=== PATIENT | male | born 1975 | race Caucasian/White ===

== ENCOUNTER → 2022-05-02 | Outpatient (CLI) | payer MEDICAID, SELFPAY ==
--- NOTE | 2022-05-02 15:13 | RAD_ITS ---
STUDY: X-RAY - LUMBOSACRAL SPINE REASON FOR EXAM: Male, 46 years old. Pain. TECHNIQUE: 6 view(s) of the lumbosacral spine, including lateral flexion and extension views, were obtained. COMPARISON: None FINDINGS: Normal lumbar lordosis. Mild levoscoliosis of the lower lumbar spine. Normal alignment of the vertebral bodies. Limited flexion and extension with no abnormal motion. Diffuse moderate facet sclerosis. Intervertebral disc space narrowing at T11-T12, T12-L1, L1-L2, L2-L3, L3-L4 and L4-5. Osteophytes most marked at T11-T12, T12-L1, L1-L2 and L4-5. Normal bilateral sacral ala, sacroiliac joints, and visualized sacrum. Vascular calcification. RAD/L/S Spine w Bend Min 6 Vw IMPRESSION: Limited flexion and extension with no abnormal motion. Diffuse lumbosacral spondylosis most marked in the lower thoracic and lower lumbar region.s. No acute abnormality or erosive changes. Electronically Signed: David Forbes, at 13:12 EST ,
--- NOTE | 2022-05-02 15:13 | RAD_ITS ---
STUDY: X-RAY - PELVIS AND BILATERAL HIPS REASON FOR EXAM: Male, 46 years old. Pain. TECHNIQUE: AP view of the pelvis.? 2 views of the right hip, and 2 views of the left hip were obtained. COMPARISON: None. FINDINGS: There is a non-specific bowel gas pattern. Normal visualized soft tissue structures. Osteopenia. Mild arthrosis of both sacroiliac joints. Normal bilateral superior and inferior pubic rami. Mild arthrosis of the symphysis pubis. Normal bilateral ischial tuberosities. Moderate arthrosis of both hips. 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 RAD/Hips B/L min 2 views w/ Pelvis IMPRESSION: Osteopenia with arthrosis and sacroiliac joints and symphysis pubis. Moderate arthrosis of both hips. 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 Electronically Signed: David Forbes, at 13:08 EST ,
[2022-05-02 18:02] LABS: Vitamin B12 483 pg/mL (211-911)
[2022-05-02 18:11] LABS: ALB/GLOB Ratio 0.8 RATIO (0.9-2.4); AST(SGOT) 33 U/L (15-37); Alanine Aminotransfer ALT/SGPT 50 U/L (16-61); Albumin, Serum 3.5 g/dL (3.2-5.0); Alkaline Phosphatase 88 U/L (45-117); Anion Gap 11 (5-15); BUN 17 mg/dL (7-18); BUN/Creat Ratio 15.2 RATIO (10-20); Chloride 97 mmol/L (98-107); Cholesterol 181 mg/dL (200); Creatinine, Serum 1.12 mg/dL (0.70-1.30); EST Glomerular Filtration Rate 75 mL/min (>60); Est Glom Filt Rate - Afr Amer 90 mL/min (>60); Globulin 4.5 g/dL (2.2-4.2); Glucose 352 mg/dL (74-106); High Density Lipoprotein 30 mg/dL; Potassium 3.9 mmol/L (3.5-5.1); Sodium Level 132 mmol/L (136-145); Thyroid Stim Hormone (TSH) 4.29 uIU/mL (0.358-3.74); Triglycerides 280 mg/dL; Very Low Density Lipoprotein 56 mg/dL (5-40)
[2022-05-03 11:23] LABS: T4 Free Direct 1.08 ng/dL (0.76-1.46)
== END | disposition home or self-care (01) ==
PROVIDERS: PCP Family Medicine; Referring Provider Family Medicine; Visit Provider Family Medicine
DX: M51.36 Other intervertebral disc degeneration, lumbar region (principal); E11.9 Type 2 diabetes mellitus without complications
CPT/HCPCS: 36415; 72114; 73521; 80053; 80061; 82607; 84403; 84439; 84443

== ENCOUNTER 2022-06-24 11:30 | Outpatient (RCR) | payer MEDICAID, SELFPAY ==
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
--- NOTE | 2022-06-24 12:00 | HP.PTREVAL ---
Dr. Jose Fong MD, It has been my pleasure to treat SUKHWINDER MEYER over the last 6 visits for DDD Lumbar Spin. Please see the progress note below for an update on the physical therapy plan of care! Subjective: Patient reports that he does feel that the aqua therapy helped but the pain is still bad. Worst: 09/23 Agg: sitting or standing for too long. Eases: Meloxicam Best: 07/24. Called Dr. Fong and is trying to change medications. He does feel that more therapy would be good- he just got a membership- and plans to work out indep as well. Objective/Function: Posture: FH, RS- can correct but does not maintain in sitting or standing. Gait: slightly antalgic- straight cane- HR/TR: able with UE A. SLS: Left: 2-3 seconds Right: unable reports that he feels the he will buckle. ROM: Lumbar: flexion: hands to knees, Extn: neutral, SB and Rot: moderate limitations with pain, Hip: flexion: 90 degrees, Abd: 20 degrees, Add: neutral, IR/ER: 15 degrees with pain in all directions of lumbar and hip. Knee/Ankle: WFL (pt does have moderate OA in bilateral hips). Strength: Core: fair, Hip: 4/5 in available range, Knee: 5/5, Ankle: 5/5. Sensation: WNL to gross touch bilateral LE. Reflex: 2+ patellar Plan Plan: 06/24/22: Continue 2x a week for 4 weeks with aquatics- continue to progress towards goals. Continue with UE/CORE. Add steps. Aquatics- focus on LE and core strength/stabilization- functional mobility with pain mgmt Balance/Gait/Functional tests - Balance/Special Test Scores Oswestry Low Back Score: 34 Goals Goal 1:: Patient will be I with HEP and progression Goal Time Frame: 4-6 Weeks Goal Progress: Progressing Goal 2:: Patient will ambulate >300 feet with no AD Goal Time Frame: 4-6 Weeks Goal Progress: Progressing Goal 3:: Patient will maintain proper posture t/o tx session to demo increased core s/s Goal Time Frame: 4-6 Weeks Goal Progress: Progressing Goal 4:: Patient will report 80% improvement Goal Time Frame: 4-6 Weeks Goal Progress: Progressing Anticipated Interventions Patient/Client Instruction: Educate patient on: Benefits of Fitness Program Therapeutic Exercise to Include: Strength training, Endurance training, Balance training, Coordination, Agility training, Body mechanics, Postural training, Flexibilty training, Gait and locomotor training, Neuromotor development, In an aquatic setting, Passive ROM, Active ROM, Dynamic Lumbar Stabilization, Scapular Strength/Stabilization For the Purpose of:: To improve muscle performance and motor function Please do not hesitate to contact me at [phone] by phone or if you have questions or concerns regarding this new plan of care! Sincerely, LIUDMILA DeviT
--- NOTE | 2022-09-30 11:43 | HP.PT.NRP ---
Patient Information Patient Information: SUKHWINDER MEYER was seen in my office for initial evaluation on 05/15/22. The following Plan of Care was established for this patient: POC Established Initial Frequency: 2x /Week Initial Duration: 4 Weeks Anticipated Interventions Patient/Client Instruction: Educate patient on: Benefits of Fitness Program Therapeutic Exercise to Include: Strength training, Endurance training, Balance training, Coordination, Agility training, Body mechanics, Postural training, Flexibilty training, Gait and locomotor training, Neuromotor development, In an aquatic setting, Passive ROM, Active ROM, Dynamic Lumbar Stabilization and Scapular Strength/Stabilization For the Purpose of:: To improve muscle performance and motor function Last Seen Last Seen: This patient was last seen in our office . Pertinent comments regarding their Physical therapy will appear below: Pt POC at last re-evaluation was to continue aquatic therapy- he was doing a home exercise program- he has not attended PT in over 8 weeks- PT feels its appropriate to d/c from PT and continue his current HEP. At this point I will be discontinuing this patient from physical therapy. I would be happy to see this patient again in the future if found appropriate by the physician. Thank you! Dary Mayers, DPT Balance/Gait/Functional tests Balance/Special Test Scores Oswestry Low Back Score: 34
== END 2022-06-24 19:00 | disposition home or self-care (01) ==
LOC: PT 11:30
PROVIDERS: PCP Family Medicine; Referring Provider Family Medicine; Visit Provider Family Medicine
DX: M51.36 Other intervertebral disc degeneration, lumbar region (principal)
CPT/HCPCS: 97113; 97162; 97164

== ENCOUNTER 2023-11-10 14:37 | Inpatient (IN) | payer MEDICAID, SELFPAY ==
[2023-11-10 14:39] VITALS: BP 130/84; PULSE 83; RESP 18; TEMP 35.6; O2SAT 99
--- NOTE | 2023-11-10 16:25 | EX.ED.SAOD ---
HPI History of Present Illness Chief Complaint: Substance Abuse Informant: patient Onset/Context/Timing Onset: Today Context: Gradual Onset Timing: Continuous Worsened by: PTSD, depression, and anxiety Relieved by: Nothing Associated Symptoms Associated Symptoms: Negative for vomiting*, diarrhea*, fever*, rash*, seizure, tremor, palpatations, suicidal ideation or homicidal ideation Narrative Narrative: Patient presents requesting detox from alcohol. Patient states he drinks every day. Patient states the amount he drinks varies from day-to-day. Patient states he drinks whenever I can get my hands on. Patient states he has a history of PTSD, depression, and anxiety which exacerbate his drinking. Patient denies any nausea or vomiting. Patient denies any seizures or tremors. Patient denies any suicidal homicidal ideations currently. Patient admits to chronic neck and back pain. Patient denies any other symptoms. Patient has never been to detox before. [facility] Medical History (Updated 11/10/23 @ 17:[address] Jos Garrison, DO) Degeneration of spine PTSD (post-traumatic stress disorder) Alcohol abuse Anxiety Depression Diabetes SOB (shortness of breath) HTN (hypertension) Home Medications ?Medication ?Instructions ?Recorded ?Last Taken ?Type albuterol sulfate 90 mcg/actuation 1 puff inhalation Q4H PRN PRN 11/10/23 Unknown History aerosol inhaler wheezing apixaban 5 mg tablet (Eliquis) 5 mg PO BID 11/10/23 Unknown History atorvastatin 10 mg tablet 10 mg PO DAILY 11/10/23 Unknown History carvedilol 25 mg tablet 12.5 mg PO BID 11/10/23 Unknown History cetirizine 10 mg tablet 10 mg PO DAILY 11/10/23 Unknown History fluoxetine 60 mg tablet 60 mg PO DAILY 11/10/23 Unknown History glipizide 2.5 mg tablet, extended 2.5 mg PO DAILY 11/10/23 Unknown History release 24 hr lisinopril 10 1 tab PO DAILY 11/10/23 Unknown History mg-hydrochlorothiazide 12.5 mg tablet meloxicam 15 mg tablet 15 mg PO DAILY 11/10/23 Unknown History metformin 1,000 mg tablet 1,000 mg PO BID 11/10/23 Unknown History Allergy/AdvReac Type Severity Reaction Status Date / Time No Known Allergies Allergy Verified 11/10/23 14:39 Surgical History (Updated 11/10/23 @ 16:[address] Jos Garrison, DO) History of carpal tunnel surgery Social History household members: spouse housing: house Smoking Status: Current every day smoker tobacco type: cigarettes alcohol intake: never ROS ROS ED Constitutional Constitutional ED: Denies chills or fever(s) Eyes Eyes: Denies blurry vision or change in vision ENT ENT ED: Denies rhinorrhea or sore throat Cardiovascular Cardiovascular: Denies chest pain or palpitations Respiratory/Chest Respiratory/Chest: Denies cough or dyspnea Gastrointestinal Gastrointestinal: Denies nausea or vomiting Genitourinary Genitourinary ED: Denies dysuria or hematuria Musculoskeletal Musculoskeletal: Reports back pain and neck pain Integumentary Denies abscess or rash Neurologic Neurologic: Denies headache(s) or weakness Allergic/Immunologic Allergic/Immunologic ED: Denies mouth swelling or urticaria EXAM Physical Exam Const Vital Signs: 11/10/23 14:39 11/10/23 16:38 Temperature 96.1 F L Temperature Source Temporal Pulse Rate 83 78 Respiratory Rate 18 19 H Blood Pressure 130/84 H 116/49 L Blood Pressure Mean 99 71 Pulse Ox 99 99 Oxygen Delivery Method Room Air Room Air Positive well nourished and well developed General Appearance ED: well developed and NAD HEENT Reports moist mucous membranes Neck supple and no JVD Resp normal respiratory effort and clear to auscultation bilaterally Cardio regular rate and regular rhythm GI soft to palpation, non-tender and non-distended Neuro oriented x3, CN's II-XII intact bilaterally and no sensory deficits noted Jose Coma Scale: document GCS findings Spontaneous Obeys Commands Oriented 15 Sensorium / Orientation: alert Speech: speech normal Motor Exam: strength 5/5 throughout Psych mental status grossly normal and thought process normal MDM MDM MDM Narrative Medical decision making narrative: Medical screening labs will be obtained. CBC will be obtained to assess for leukocytosis and anemia. Basic metabolic profile will be obtained to assess for electrolyte abnormality and renal function. Serum alcohol level will be obtained to assess for alcohol intoxication. Urine tox screen will be obtained to assess for substance abuse. Lab Data Labs: Laboratory Results - last 24 hr 11/10/23 15:56 WBC 11.6 H RBC 4.43 L Hgb 14.8 Hct 41.7 MCV 94.1 H MCH 33.4 H MCHC 35.5 RDW Std Deviation 43.8 RDW Coeff of Rachel 12.7 Plt Count 345 MPV 8.8 Immature Gran % (Auto) 0.900 Neut % (Auto) 60.5 Lymph % (Auto) 28.2 [place] % (Auto) 7.3 Eos % (Auto) 2.2 Baso % (Auto) 0.9 Absolute Neuts (auto) 7.0 Absolute Lymphs (auto) 3.27 Nucleated RBC % 0 Sodium 127 L Potassium 3.7 Chloride 95 L Carbon Dioxide 19.0 L Anion Gap 13 BUN 13 Creatinine 0.82 Est GFR (MDRD) Af Amer 128 Est GFR (MDRD) Non-Af 105 BUN/Creatinine Ratio 15.8 Glucose 73 L Calcium 8.9 Ethyl Alcohol 183.0 Management Discussion w/another healthcare provider: Hospitalist Treatment and Re-Evaluation Narrative: Smoking cessation was discussed. IV line was established. Case was discussed with the hospitalist. She will admit the patient to her service. Patient understood and was agreeable with the plan. All questions were answered. Discharge Plan Dx/Rx/DC Orders Clinical Impression: Alcohol abuse, Tobacco use, Hypertension, Desire for detoxification Disposition Disposition: Acute Care [facility]
[2023-11-10 16:38] VITALS: BP 116/49; PULSE 78; RESP 19; O2SAT 99
[2023-11-10 17:33] LABS: Absolute Lymphocyte Count 3.27 X10^3/uL (0.83-4.51); Basophil% 0.9 % (0-1); Eosinophil# 0.26 X10^3/uL; Eosinophils% 2.2 % (0-5); Hematocrit 41.7 % (40-54); Hemoglobin 14.8 g/dL (13.0-16.5); Lymphocyte # 3.27 X10^3/ul (0.83-4.51); Lymphocyte % 28.2 % (19-41); Mean Corp Hgb Conc 35.5 g/dL (32-36); Mean Corpuscular Hgb 33.4 pg (27.0-32.0); Mean Corpuscular Volume 94.1 fL (80-94); Mean Platelet Vol. 8.8 fl (6.2-12.0); Monocyte# 0.85 X10^3/uL; Monocyte% 7.3 % (0-10); NRBC Flagged by Analyzer 0 % (0-5); Neutrophil # 7.02 X10^3/uL (2.7-7.7); Neutrophil % 60.5 % (47-70); Platelet Count 345 K/mm3 (150-450); RBC Distribution Width CV 12.7 % (11.6-14.6); RBC Distribution Width SD 43.8 fl (35.1-43.9); Red Blood Count 4.43 M/mm3 (4.6-6.2); White Blood Count 11.6 K/mm3 (4.4-11.0)
[2023-11-10 17:34] LABS: Anion Gap 13 (5-15); BUN 13 mg/dL (7-18); BUN/Creat Ratio 15.8 RATIO (10-20); Calcium,Total 8.9 mg/dL (8.5-10.1); Chloride 95 mmol/L (98-107); Creatinine, Serum 0.82 mg/dL (0.70-1.30); EST Glomerular Filtration Rate 105 mL/min (>60); Est Glom Filt Rate - Afr Amer 128 mL/min (>60); Glucose 73 mg/dL (74-106); Potassium 3.7 mmol/L (3.5-5.1); Sodium Level 127 mmol/L (136-145)
[2023-11-10 18:00] VITALS: BP 168/44; PULSE 81; RESP 19; O2SAT 99
--- NOTE | 2023-11-10 18:13 | HP.PCM.HOS_ITS ---
HPI - General General Date of Admission: 11/10/23 Date of Service: 11/10/23 Chief Complaint: ETOH detox HPI Narrative SUKHWINDER MEYER, is a 48 M with a history of tobacco use, hypertension, diabetes, tobacco use, degenerative disc disease, depression and anxiety and alcohol use who presented to [facility] ED 11/10/2023 at the urging of his counselor for alcohol detox. Used to drink occasionally but has been drinking roughly daily since March and will drink as much as he can get and is much as he can afford which can be anywhere from a couple beers to 6-12 beers based on conversation, last drink 2 hours prior to arrival and he had sixpack this morning. He reports he has been homeless for the past 5 days after breaking up with his girlfriend and he called his counselor who recommended he come in for alcohol detox and further help. Patient said he thinks he borders on unhealthy alcohol use more so than alcohol dependence but acknowledges he does need help. No previous detox and presently reports chronic pain and some swelling in his legs from dangling them/sitting up for the past 5 days due to homelessness but no other new or acute complaints, no shakiness, no nausea or vomiting. Reports primarily feeling anxious and depressed. [facility] Medical History (Updated 11/10/23 @ 19:01 by Angely Moore) Alcohol abuse Anxiety Degeneration of spine Depression Depression Diabetes HTN (hypertension) PTSD (post-traumatic stress disorder) Restless legs Smoker SOB (shortness of breath) Home Medications ?Medication ?Instructions ?Recorded ?Last Taken ?Type albuterol sulfate 90 mcg/actuation 1 puff inhalation Q4H PRN PRN 11/10/23 Unknown History aerosol inhaler wheezing apixaban 5 mg tablet (Eliquis) 5 mg PO BID 11/10/23 Unknown History atorvastatin 10 mg tablet 10 mg PO DAILY 11/10/23 Unknown History carvedilol 25 mg tablet 12.5 mg PO BID 11/10/23 Unknown History cetirizine 10 mg tablet 10 mg PO DAILY 11/10/23 Unknown History fluoxetine 60 mg tablet 60 mg PO DAILY 11/10/23 Unknown History glipizide 2.5 mg tablet, extended 2.5 mg PO DAILY 11/10/23 Unknown History release 24 hr lisinopril 10 1 tab PO DAILY 11/10/23 Unknown History mg-hydrochlorothiazide 12.5 mg tablet meloxicam 15 mg tablet 15 mg PO DAILY 11/10/23 Unknown History metformin 1,000 mg tablet 1,000 mg PO BID 11/10/23 Unknown History Allergy/AdvReac Type Severity Reaction Status Date / Time No Known Allergies Allergy Verified 11/10/23 14:39 Surgical History (Updated 11/10/23 @ 16:[address] Jos Garrison DO) History of carpal tunnel surgery Social History household members: spouse housing: house Smoking Status: Current every day smoker tobacco type: cigarettes alcohol intake: never ROS ROS Narrative General: Denies fever/chills HENT: Denies headache, denies stuffy nose, denies sore throat EYES: Denies changes in vision Resp: Denies cough, denies shortness of breath Cardiac: Denies chest pain GI: Denies abdominal pain, denies changes in bowel, denies nausea/vomiting : Denies changes in urination Extremity: Has some bilateral lower extremity swelling MSK: Has chronic back problems/back pain Neuro: Denies any numbness/tingling Heme: Denies any bleeding or bruising Skin: Denies rashes Psychiatric: Feels anxious and depressed Vital Signs Vital Signs Vital Signs: 11/10/23 14:39 11/10/23 16:38 Temperature 96.1 F L Temperature Source Temporal Pulse Rate 83 78 Respiratory Rate 18 19 H Blood Pressure 130/84 H 116/49 L Blood Pressure Mean 99 71 Pulse Ox 99 99 Oxygen Delivery Method Room Air Room Air Physical Exam Narrative General: Alert, oriented, no apparent distress HEENT: Atraumatic, normocephalic Eyes: Anicteric, normal conjunctiva, extraocular movements grossly intact Neck: Supple Respiratory: Normal respiratory effort, diffuse wheezing Cardiovascular: Regular rate GI: Soft, nontender, nondistended Extremities: 1+ bilateral lower extremity edema and prominent veins Musculoskeletal: Moving all extremities Neuro: No overt focal neurological deficits Skin: No rashes appreciated Psych: Cooperative Results Lab / Micro Data 11/10/23 15:56 11/10/23 15:56 Labs: Laboratory Results - last 24 hr 11/10/23 15:56: WBC 11.6 H, RBC 4.43 L, Hgb 14.8, Hct 41.7, MCV 94.1 H, MCH 33.4 H, MCHC 35.5, RDW Std Deviation 43.8, RDW Coeff of Rachel 12.7, Plt Count 345, MPV 8.8, Immature Gran % (Auto) 0.900, Neut % (Auto) 60.5, Lymph % (Auto) 28.2, [place] % (Auto) 7.3, Eos % (Auto) 2.2, Baso % (Auto) 0.9, Absolute Neuts (auto) 7.0, Absolute Lymphs (auto) 3.27, Nucleated RBC % 0, Sodium 127 L, Potassium 3.7, C hloride 95 L, Carbon Dioxide 19.0 L, Anion Gap 13, BUN 13, Creatinine 0.82, Est GFR (MDRD) Af Amer 128, Est GFR (MDRD) Non-Af 105, BUN/Creatinine Ratio 15.8, G lucose 73 L, Calcium 8.9, Ethyl Alcohol 183.0 11/10/23 17:40: Ur Drug Screen Comment Assessment & Plan Assessment/Plan (1) Alcohol abuse: PLAN: Plan #Alcohol use disorder - We will begin CIWA every 4 for 24 hours, then every 6 for 24 hours, then every 12 until discharge -Had initially planned on phenobarb taper however this has an interaction with Jolene and patient felt he more had a problem with alcohol abuse than dependence and does not necessarily feel any significant symptoms when he does not drink and has days where he will drink only 1 or 2 beers so will use as needed Ativan and can schedule medication if frequent scoring -Gabapentin 300 mg every 8 as needed -Will start Bentyl and hydroxyzine as needed as well as loperamide as needed -Trazodone 100 mg p.o. nightly as needed sleep -Begin thiamine and folic acid supplementation -Zofran as needed for nausea -Case management consult to assist with discharge planning -EtOH 183, drug screen pending # Hyponatremia -Sodium 127, only other value in system was back in 2022 and was 132 -Hold hydrochlorothiazide, if no improvement may need to consider switching fluoxetine to alternative medication or further workup -Does not seem to be symptomatic at this time # Depression and anxiety -Continue fluoxetine -Support medications as above -Supportive care provided in ED #Hypertension -Continue carvedilol -Given hyponatremia holding lisinopril/hydrochlorothiazide, if blood pressure remains elevated despite being treated for alcohol withdrawal can resume the lisinopril -As needed hydralazine in the meantime #Type 2 diabetes mellitus -Glucose checks and sliding scale insulin -Hold oral hypoglycemic at this time -In ED glucose only 72, patient has not eaten much however given he is presently homeless # Chronic low back pain -Tylenol as needed -May ultimately benefit from physical therapy possibly on outpatient basis -Holding meloxicam given patient's also on Eliquis, may need to alter regimen depending on patient's symptoms # Chronically on Eliquis -Will need to clarify reason for patient's Eliquis but does actively feel this # Homelessness -Case management c/s #DVT ppx: On Eliquis Wandy Pittman MD Charges/Coding Visit Charges Inpatient E&M: 42504 Init Hosp L2
[2023-11-10 18:31] VITALS: BP 168/44; PULSE 81; RESP 19; TEMP 36.3; O2SAT 99
[2023-11-10 18:56] VITALS: BMI 41.3
[2023-11-10 19:03] VITALS: BP 131/69; PULSE 83; RESP 16; TEMP 36.4; O2SAT 98
[2023-11-10] MEDS: 0.9% Normal Saline (1000mL) 1,000 ML 75 ML IV (19:47)
[2023-11-10] MEDS: APIXABAN 5 MG TABLET PO (19:49)
[2023-11-10] MEDS: Carvedilol 12.5 MG Tablet PO (19:49)
[2023-11-10] MEDS: Gabapentin 300 MG Capsule PO (20:05)
[2023-11-10] MEDS: LORazepam 1 MG Tablet PO (20:05)
[2023-11-10] MEDS: Acetaminophen 325 MG Tablet 650 MG PO (20:05)
[2023-11-10] MEDS: hydrOXYzine PAM 25 MG Capsule 50 MG PO (20:05)
[2023-11-10 20:08] LABS: Amphetamine Urine VISTA NEGATIVE (<1000 ng/mL); Barbiturate Urine VISTA NEGATIVE (< 200 ng/mL); Benzodiazepine Urine VISTA NEGATIVE (< 200 ng/mL); Cocaine Urine VISTA NEGATIVE (< 300 ng/mL); Ecstacy Urine VISTA NEGATIVE (< 500 ng/mL); Methadone Urine VISTA NEGATIVE (< 300 ng/mL); PCP Urine VISTA NEGATIVE (< 25 ng/mL); THC Urine VISTA NEGATIVE (< 50 ng/mL); Vista UDS pH Range 4
[2023-11-10 20:28] LABS: Bedside Glucose 94 mg/dL (74-106)
[2023-11-11] VITALS (8 sets, daily range): BP systolic 136–164; BP diastolic 67–101; PULSE 62–88; RESP 14–18; TEMP 17.7–36.9; O2SAT 92–99
[2023-11-11] MEDS: traZODone 100 MG Tablet PO ×2 (00:26→21:58)
[2023-11-11] MEDS: LORazepam 1 MG Tablet PO (00:27)
[2023-11-11 07:03] LABS: Bedside Glucose 131 mg/dL (74-106)
[2023-11-11 07:32] LABS: Absolute Lymphocyte Count 1.85 X10^3/uL (0.83-4.51); Absolute Neutrophil Count 5.1 X10^3/uL (2.0-7.7); Basophil# 0.05 X10^3/uL; Basophil% 0.6 % (0-1); Eosinophil# 0.21 X10^3/uL; Eosinophils% 2.6 % (0-5); Hematocrit 40.8 % (40-54); Hemoglobin 14.4 g/dL (13.0-16.5); Lymphocyte # 1.85 X10^3/ul (0.83-4.51); Mean Corp Hgb Conc 35.3 g/dL (32-36); Mean Corpuscular Hgb 33.2 pg (27.0-32.0); Mean Platelet Vol. 8.5 fl (6.2-12.0); Monocyte# 0.82 X10^3/uL; Monocyte% 10.2 % (0-10); NRBC Flagged by Analyzer 0 % (0-5); Neutrophil # 5.06 X10^3/uL (2.7-7.7); Neutrophil % 62.9 % (47-70); Platelet Count 267 K/mm3 (150-450); RBC Distribution Width CV 12.7 % (11.6-14.6); RBC Distribution Width SD 43.8 fl (35.1-43.9); Red Blood Count 4.34 M/mm3 (4.6-6.2); White Blood Count 8.1 K/mm3 (4.4-11.0)
[2023-11-11 08:30] LABS: International Normalized Ratio 1.1; Prothrombin Time (Protime)PT. 13.9 SECONDS (11.7-14.9)
--- NOTE | 2023-11-11 09:14 | EKG12_ITS ---
Test Reason : AFIB Blood Pressure : / mmHG Vent. Rate : 080 BPM Atrial Rate : 080 BPM P-R Int : 192 ms QRS Dur : 102 ms QT Int : 406 ms P-R-T Axes : 072 -19 070 degrees QTc Int : 468 ms Normal sinus rhythm Incomplete right bundle branch block Borderline ECG No previous ECGs available Confirmed by Juanjo Boyer ([id number]), copy editor CHERELLE SON ([id number]) on 11/14/2023 6:37:22 AM Referred By: Confirmed By:Juanjo Boyer
[2023-11-11] MEDS: 0.9% Normal Saline (1000mL) 1,000 ML 75 ML IV (09:21)
[2023-11-11] MEDS: Loratadine 10 MG Tablet PO (09:21)
[2023-11-11] MEDS: Carvedilol 12.5 MG Tablet PO ×2 (09:21→21:59)
[2023-11-11] MEDS: Thiamine Hydrochloride 100 MG Tablet PO (09:21)
[2023-11-11] MEDS: FLUoxetine 20 MG Capsule 60 MG PO (09:21)
[2023-11-11] MEDS: Folic Acid 1 MG Tablet PO (09:21)
[2023-11-11] MEDS: APIXABAN 5 MG TABLET PO ×2 (09:22→21:59)
[2023-11-11] MEDS: Atorvastatin Calcium 10 MG Tablet PO (09:26)
[2023-11-11] MEDS: Cyanocobalamin 500 MCG Tablet 1000 MCG PO (09:28)
[2023-11-11 09:36] LABS: Bedside Glucose 145 mg/dL (74-106)
[2023-11-11 11:30] LABS: ALB/GLOB Ratio 0.6 RATIO (0.9-2.4); AST(SGOT) 19 U/L (15-37); Alanine Aminotransfer ALT/SGPT 23 U/L (16-61); Albumin, Serum 2.6 g/dL (3.2-5.0); Alkaline Phosphatase 110 U/L (45-117); Anion Gap 9 (5-15); BUN 13 mg/dL (7-18); BUN/Creat Ratio 19.2 RATIO (10-20); Calcium,Total 9.2 mg/dL (8.5-10.1); Chloride 101 mmol/L (98-107); Creatinine, Serum 0.68 mg/dL (0.70-1.30); EST Glomerular Filtration Rate 132 mL/min (>60); Est Glom Filt Rate - Afr Amer 160 mL/min (>60); Estimated Creatinine Clearance 194.66 ml/min; Glucose 126 mg/dL (74-106); Magnesium 1.9 mg/dL (1.6-2.6); Potassium 4.3 mmol/L (3.5-5.1); Protein, Total 6.6 g/dL (6.4-8.2); Sodium Level 135 mmol/L (136-145)
[2023-11-11 11:36] LABS: Bedside Glucose 179 mg/dL (74-106)
[2023-11-11] MEDS: Insulin Lispro 100 UNIT/ML INSULN.PEN SC ×3 (12:42→21:58)
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
[2023-11-11] MEDS: Acetaminophen 325 MG Tablet 650 MG PO (14:35)
[2023-11-11 15:29] LABS: Hemoglobin A1c 5.9 % (3.8-5.6)
[2023-11-11 16:37] LABS: Bedside Glucose 152 mg/dL (74-106)
--- NOTE | 2023-11-11 16:51 | PN.HOSP_ITS ---
Reason for Visit Reason for Visit: Diagnoses Alcohol abuse, uncomplicated (11/10/23) Subjective Subjective Patient was seen and examined today, I ask him about his Eliquis usage, he did not appear to know why he is taking Eliquis. I called his nurse practitioner today and had a discussion with her, she states that one of his major problems is lack of living accommodations, he is on Eliquis due to atrial fibrillation. I got an EKG today-it showed a normal sinus rhythm. Patient does not appear anxious or tremorous today. Objective Data Objective Data Vital Signs: Vital Signs Temp Pulse Resp BP Pulse Ox O2 Del Method 98.4 F 80 18 164/101 H 92 Room Air 11/11/23 09:15 11/11/23 14:21 11/11/23 09:15 11/11/23 09:15 11/11/23 09:15 11/11/23 14:21 Oxygen Delivery Method Room Air Weight: 141.974 kg Body Mass Index (BMI) 41.3 Intake & Output: Intake and Output for Last 24 Hours 11/09/23 11/10/23 11/11/23 23:59 23:59 23:59 Intake Total 1525 / 1525 Balance 1525 / 1525 Lab / Micro Data 11/11/23 07:22 11/11/23 07:22 Labs: Laboratory Results - last 24 hr 11/10/23 15:56: WBC 11.6 H, RBC 4.43 L, Hgb 14.8, Hct 41.7, MCV 94.1 H, MCH 33.4 H, MCHC 35.5, RDW Std Deviation 43.8, RDW Coeff of Rachel 12.7, Plt Count 345, MPV 8.8, Immature Gran % (Auto) 0.900, Neut % (Auto) 60.5, Lymph % (Auto) 28.2, Crowley % (Auto) 7.3, Eos % (Auto) 2.2, Baso % (Auto) 0.9, Absolute Neuts (auto) 7.0, Absolute Lymphs (auto) 3.27, Nucleated RBC % 0, Sodium 127 L, Potassium 3.7, C hloride 95 L, Carbon Dioxide 19.0 L, Anion Gap 13, BUN 13, Creatinine 0.82, Est GFR (MDRD) Af Amer 128, Est GFR (MDRD) Non-Af 105, BUN/Creatinine Ratio 15.8, G lucose 73 L, Calcium 8.9, Ethyl Alcohol 183.0 11/10/23 17:40: Urine Opiates Screen NEGATIVE, Urine Methadone Screen NEGATIVE, Ur Barbiturates Screen NEGATIVE, Ur Phencyclidine Scrn NEGATIVE, Ur Amphetamines Screen NEGATIVE, MDMA (Ecstasy) Screen NEGATIVE, U Benzodiazepines Scrn NEGATIVE, Urine Cocaine Screen NEGATIVE, U Cannabinoids Screen NEGATIVE, Ur Drug Screen Comment 11/10/23 20:04: POC Glucose 94 11/11/23 06:41: POC Glucose 131 H 11/11/23 07:22: WBC 8.1, RBC 4.34 L, Hgb 14.4, Hct 40.8, MCV 94.0, MCH 33.2 H, MCHC 35.3, RDW Std Deviation 43.8, RDW Coeff of Rachel 12.7, Plt Count 267, MPV 8.5, Immature Gran % (Auto) 0.700, Neut % (Auto) 62.9, Lymph % (Auto) 23.0, Crowley % (Auto) 10.2 H, Eos % (Auto) 2.6, Baso % (Auto) 0.6, Absolute Neuts (auto) 5.1, Absolute Lymphs (auto) 1.85, Nucleated RBC % 0, PT 13.9, INR 1.1, Sodium 135 L, Potassium 4.3, Chloride 101, Carbon Dioxide 25.0, Anion Gap 9, BUN 13, C reatinine 0.68 L, Estim Creat Clear Calc 194.66, Est GFR (MDRD) Af Amer 160, Est GFR (MDRD) Non-Af 132, BUN/Creatinine Ratio 19.2, Glucose 126 H, Hemoglobin A1c 5.9 H, Calcium 9.2, Magnesium 1.9, Total Bilirubin 0.50, AST 19, ALT 23, Alkaline Phosphatase 110, Total Protein 6.6, Albumin 2.6 L, Globulin 4.0, A lbumin/Globulin Ratio 0.6 L, TSH 2.510 11/11/23 09:17: POC Glucose 145 H 11/11/23 11:18: POC Glucose 179 H 11/11/23 16:15: POC Glucose 152 H Social Homelessness:: Sheltered Physical Exam Const alert, oriented x3 and no apparent distress Constitutional Narrative: Patient is morbidly obese General Appearance: cooperative, well kempt and well developed Orientation / Consciousness: awake, oriented to person, oriented to place and oriented to time HEENT normocephalic, head/scalp atraumatic and moist oral mucous membranes Eyes PERRL, EOMs intact bilaterally and conjunctivae normal Neck supple, no JVD and thyroid normal General: trachea midline Resp normal respiratory effort, no retractions, no use of accessory muscles and clear to auscultation bilaterally Auscultation: Negative for rales, rhonchi or wheezes Cardio regular rate, regular rhythm, S1 normal heart sound, S2 normal heart sound, no murmurs, no rub and no gallops GI normal to inspection, nondistended, normoactive bowel sounds, soft to palpation, non-tender and non-distended Extremity no clubbing, cyanosis or edema Skin no rashes or lesions noted General Skin Exam: no breakdown Neuro oriented x3, CN's II-XII intact bilaterally, no focal motor deficits and no sensory deficits noted Sensorium / Orientation: awake and alert Speech: speech normal Psych affect normal Assessment & Plan Assessment/Plan (1) Desire for detoxification: PLAN: Plan 1. Acute alcohol withdrawal-patient does not appear symptomatic at this time, he is on as needed Ativan, patient was seen by addiction social service manager today #2 essential hypertension-patient will remain on his present medications and they will be adjusted as needed #3 paroxysmal atrial fibrillation-patient is currently in sinus rhythm at this time, he is on rate limiting medication and Eliquis. #4 type 2 diabetes-fingerstick blood sugars were ordered and sliding scale insulin to scale will be given #5 morbid obesity-complicates care, management, recovery, and prognosis #6 chronic anxiety-patient is on Prozac Total clinical time spent by myself addressing the patient's medical issues, reviewing all of his data, and collaborating with patient's care team: 35 minutes Charges/Coding Visit Charges Inpatient E&M: 72821 Subs Hosp L2
[2023-11-11] MEDS: Gabapentin 300 MG Capsule PO (21:58)
[2023-11-11 22:27] LABS: Bedside Glucose 213 mg/dL (74-106)
[2023-11-12 02:55] VITALS: BP 159/69; PULSE 65; RESP 18; TEMP 36.3; O2SAT 96
[2023-11-12 08:42] VITALS: BP 172/82; PULSE 57; RESP 18; TEMP 36.6; O2SAT 94
[2023-11-12] MEDS: Cyanocobalamin 500 MCG Tablet 1000 MCG PO (08:50)
[2023-11-12] MEDS: Ondansetron 8 MG Tablet PO (08:50)
[2023-11-12] MEDS: APIXABAN 5 MG TABLET PO ×2 (08:50→21:54)
[2023-11-12] MEDS: Acetaminophen 325 MG Tablet 650 MG PO ×3 (08:50→22:01)
[2023-11-12] MEDS: Atorvastatin Calcium 10 MG Tablet PO (08:50)
[2023-11-12] MEDS: hydrOXYzine PAM 25 MG Capsule 50 MG PO ×3 (08:50→22:01)
[2023-11-12] MEDS: Folic Acid 1 MG Tablet PO (08:51)
[2023-11-12] MEDS: Carvedilol 12.5 MG Tablet PO ×2 (08:51→22:06)
[2023-11-12] MEDS: Dicyclomine 10 MG Capsule 20 MG PO ×2 (08:51→16:46)
[2023-11-12] MEDS: FLUoxetine 20 MG Capsule 60 MG PO (08:51)
[2023-11-12] MEDS: Loratadine 10 MG Tablet PO (08:52)
[2023-11-12] MEDS: Thiamine Hydrochloride 100 MG Tablet PO (08:52)
[2023-11-12] MEDS: Insulin Lispro 100 UNIT/ML INSULN.PEN SC ×3 (11:19→21:54)
[2023-11-12 11:38] LABS: Bedside Glucose 155 mg/dL (74-106)
[2023-11-12 11:38] LABS: Bedside Glucose 141 mg/dL (74-106)
--- NOTE | 2023-11-12 13:08 | ADDICTION ---
This typewriter operator automatic met with PT to conduct ASAM, MSE, AUDIT, DUDIT assessments and to plan for d/c. PT A+Ox4 and participated actively. All assessments completed and placed in PT's chart. PT plans to f/u with [facility] for inpatient treatment services. TW put referrals in for [facility] and [facility]. Pt is using a walker which may hinder admissions. Will continue to search for other placements if declined.
[2023-11-12 14:15] VITALS: BP 188/103; PULSE 64; RESP 16; TEMP 36.7; O2SAT 98
[2023-11-12] MEDS: Gabapentin 300 MG Capsule PO (14:26)
[2023-11-12 17:12] LABS: Bedside Glucose 177 mg/dL (74-106)
--- NOTE | 2023-11-12 18:47 | PCM.PN.HOSP ---
Reason for Visit Reason for Visit: Diagnoses Alcohol abuse, uncomplicated (11/10/23) Subjective Subjective Patient was seen and examined today, I talked with addiction dialysis social worker, they state the patient will go into an inpatient program at 180 tomorrow. Objective Data Objective Data Vital Signs: Vital Signs Temp Pulse Resp BP Pulse Ox O2 Del Method 98.0 F 64 16 188/103 H 98 Room Air 11/12/23 14:15 11/12/23 14:15 11/12/23 14:15 11/12/23 14:15 11/12/23 14:15 11/12/23 08:42 Oxygen Delivery Method Room Air Weight: 141.974 kg Body Mass Index (BMI) 41.3 Intake & Output: Intake and Output for Last 24 Hours 11/10/23 11/11/23 11/12/23 23:59 23:59 23:59 Intake Total 1525 / 1525 1000 / 1000 Balance 1525 / 1525 1000 / 1000 Lab / Micro Data 11/11/23 07:22 11/11/23 07:22 Labs: Laboratory Results - last 24 hr 11/11/23 21:55: POC Glucose 213 H 11/12/23 06:51: POC Glucose 141 H 11/12/23 11:16: POC Glucose 155 H 11/12/23 16:28: POC Glucose 177 H Social Homelessness:: Sheltered Physical Exam Const alert, oriented x3, no apparent distress and healthy appearing General Appearance: cooperative, well kempt and well developed Orientation / Consciousness: awake, oriented to person, oriented to place and oriented to time HEENT normocephalic and moist oral mucous membranes Eyes PERRL, EOMs intact bilaterally and conjunctivae normal Neck supple, no JVD, thyroid normal and no carotid bruits General: trachea midline Resp normal respiratory effort and clear to auscultation bilaterally Auscultation: Negative for rales, rhonchi or wheezes Cardio regular rate, regular rhythm, no murmurs, no rub and no gallops GI normal to inspection, nondistended, normoactive bowel sounds, soft to palpation, non-tender and non-distended Extremity no clubbing, cyanosis or edema Skin no rashes or lesions noted General Skin Exam: no breakdown Neuro oriented x3, CN's II-XII intact bilaterally, no focal motor deficits and no sensory deficits noted Sensorium / Orientation: awake and alert Speech: speech normal Psych affect normal Assessment & Plan Assessment/Plan (1) Desire for detoxification: PLAN: Plan 1. Acute alcohol withdrawal-patient does not appear symptomatic at this time, he is on as needed Ativan, again the patient plans to go into an inpatient detox program on discharge from the hospital. #2 essential hypertension-patient will remain on his present medications and they will be adjusted as needed #3 paroxysmal atrial fibrillation-patient is currently in sinus rhythm at this time, he is on rate limiting medication and Eliquis. #4 type 2 diabetes-fingerstick blood sugars were ordered and sliding scale insulin to scale will be given #5 morbid obesity-complicates care, management, recovery, and prognosis #6 chronic anxiety-patient is on Prozac Total clinical time spent by myself addressing the patient's medical issues, reviewing all of his data, and collaborating with patient's care team: 35 minutes Charges/Coding Visit Charges Inpatient E&M: 06549 Subs Hosp L2
[2023-11-12 21:35] VITALS: BP 155/77; PULSE 59; RESP 18; TEMP 36.9; O2SAT 97
[2023-11-12 21:48] VITALS: PULSE 70
[2023-11-12] MEDS: MELATONIN 10 MG TABLET PO (22:01)
[2023-11-12 22:26] LABS: Bedside Glucose 191 mg/dL (74-106)
[2023-11-12] MEDS: Nicotine Polacrilex 2 MG GUM PO (22:46)
[2023-11-13] MEDS: Acetaminophen 325 MG Tablet 650 MG PO (06:04)
[2023-11-13] MEDS: hydrOXYzine PAM 25 MG Capsule 50 MG PO (06:04)
[2023-11-13 06:19] VITALS: BP 169/91; PULSE 55; RESP 16; TEMP 36.6; O2SAT 98
[2023-11-13 06:30] LABS: Bedside Glucose 146 mg/dL (74-106)
[2023-11-13] MEDS: Cyanocobalamin 500 MCG Tablet 1000 MCG PO (08:38)
[2023-11-13] MEDS: Folic Acid 1 MG Tablet PO (08:38)
[2023-11-13] MEDS: Loratadine 10 MG Tablet PO (08:38)
[2023-11-13] MEDS: Thiamine Hydrochloride 100 MG Tablet PO (08:39)
[2023-11-13] MEDS: Carvedilol 12.5 MG Tablet PO (08:39)
[2023-11-13] MEDS: FLUoxetine 20 MG Capsule 60 MG PO (08:40)
[2023-11-13] MEDS: Atorvastatin Calcium 10 MG Tablet PO (08:40)
[2023-11-13] MEDS: APIXABAN 5 MG TABLET PO (08:41)
[2023-11-13] MEDS: Nicotine Polacrilex 2 MG GUM PO (08:41)
[2023-11-13 11:55] LABS: Bedside Glucose 125 mg/dL (74-106)
--- NOTE | 2023-11-13 11:58 | ADDICTION ---
Pt has been approved for [facility] in [place] for residential tx. They are arranging transportation for today. Will call in when they have a fern picker time.
[2023-11-13 12:20] VITALS: BP 136/74; PULSE 70; RESP 16; TEMP 36.7; O2SAT 98
--- NOTE | 2023-11-13 12:56 | DCINST_ITS ---
Discharge Instructions Diet Discharge Diet: 1800 Calorie Control Diet Activity Discharge Activity: Return to Normal Activity Weight Bearing Status: Full weight bearing Follow Up Care Test Results: Test results from this visit will be discussed in further detail at your follow- up appointment, if applicable. Discharge Plan Admission Admit Date/Time: 11/10/23 18:16 Primary Reason for Your Visit: alcohol detox Attending Provider: Ronnie Witt Primary Care Provider: DAVID ARGUETA Consulting Providers: Wandy Pittman Discharge Orders/Prescriptions Prescriptions: Continued carvedilol 25 mg tablet 12.5 mg PO BID cetirizine 10 mg tablet 10 mg PO DAILY atorvastatin 10 mg tablet 10 mg PO DAILY meloxicam 15 mg tablet 15 mg PO DAILY glipizide 2.5 mg tablet extended release 24hr 2.5 mg PO DAILY metformin 1,000 mg tablet 1,000 mg PO BID lisinopril-hydrochlorothiazide 10-12.5 mg tablet 1 tab PO DAILY albuterol sulfate 90 mcg/actuation HFA aerosol inhaler 1 puff inhalation Q4H PRN PRN (Reason: wheezing) fluoxetine 60 mg tablet 60 mg PO DAILY Eliquis 5 mg tablet 5 mg PO BID Referrals / Follow Up: DAVID ARGUETA CRNP [Primary Care Provider] - Disposition Disposition (needs filled in before D/C Order can be placed): DC/Tx to Another Type of HCF
--- NOTE | 2023-11-13 13:01 | DS.PCM_ITS ---
Providers Date of Admission: 11/10/23 Date of Discharge: 11/13/23 Primary Care Physician: KEVIN HAIRSTON Reason For Visit: ETOH DETOX Diagnosis Discharge Diagnosis (1) Desire for detoxification: Status: Acute Plan 1. Acute alcohol withdrawal-patient does not appear symptomatic at this time, he is on as needed Ativan, again the patient plans to go into an inpatient detox program on discharge from the hospital. #2 essential hypertension-patient will remain on his present medications and they will be adjusted as needed #3 paroxysmal atrial fibrillation-patient is currently in sinus rhythm at this time, he is on rate limiting medication and Eliquis. #4 type 2 diabetes-fingerstick blood sugars were ordered and sliding scale insulin to scale will be given #5 morbid obesity-complicates care, management, recovery, and prognosis #6 chronic anxiety-patient is on Prozac Total clinical time spent by myself addressing the patient's medical issues, reviewing all of his data, and collaborating with patient's care team: 35 minutes Medications at Discharge Home Medications albuterol sulfate 90 mcg/actuation aerosol inhaler 1 puff inhalation Q4H PRN PRN wheezing 11/10/23 apixaban 5 mg tablet (Eliquis) 5 mg PO BID 11/10/23 atorvastatin 10 mg tablet 10 mg PO DAILY 11/10/23 carvedilol 25 mg tablet 12.5 mg PO BID 11/10/23 cetirizine 10 mg tablet 10 mg PO DAILY 11/10/23 fluoxetine 60 mg tablet 60 mg PO DAILY 11/10/23 glipizide 2.5 mg tablet, extended release 24 hr 2.5 mg PO DAILY 11/10/23 lisinopril 10 mg-hydrochlorothiazide 12.5 mg tablet 1 tab PO DAILY 11/10/23 meloxicam 15 mg tablet 15 mg PO DAILY 11/10/23 metformin 1,000 mg tablet 1,000 mg PO BID 11/10/23 Hospital Course Operations None Procedures None Summary of Care Provided Minutes Spent on Discharge: 30 Hospital Course: This 48-year-old white male was seen in the emergency room at [facility] requesting services for alcohol detox. Patient's ethyl alcohol level was 183 and his tox screen was negative. Patient was admitted to [place] [address] using the alcohol detox order set, he was seen in consultation by addiction social contact worker and arrangements were made for the patient to go into an inpatient detox program at the time of discharge from the hospital. Patient had no evidence of DTs during his hospitalization and had very little evidence of alcohol withdrawal. On 11/13/2023, patient was seen and examined: On examination he appeared in good health and spirits. Vital signs as documented. Skin warm and dry and without overt rashes. Neck without JVD, neck was supple, trachea midline, thyroid was normal. Lungs clear bilaterally, normal air movement was noted. Heart exam notable for regular rhythm, normal sounds and absence of murmurs, rubs or gallops. Abdomen unremarkable and without evidence of organomegaly, masses, or abdominal aortic enlargement. Bowel sounds are present, abdomen is not distended. Extremities nonedematous, no cyanosis was noted, no clubbing was noted. Neuro: Cranial nerves II through XII are grossly intact, no focal motor deficits were noted, sensation to light touch and pinprick intact, motor exam 5/5 throughout. Psych: Patient is alert and oriented x3, he does not appear anxious or depressed, he does not appear agitated. Patient appears stable for discharge to an outpatient detox program on 11/13/2023. Medical Records Data Homelessness:: Sheltered Weight / BMI Weight Weight: 141.974 kg Body Mass Index (BMI) 41.3 ABG / Lab / Microbiology Data 11/11/23 07:22 11/11/23 07:22 Laboratory: Laboratory Results - last 24 hr 11/12/23 16:28: POC Glucose 177 H 11/12/23 21:43: POC Glucose 191 H 11/13/23 06:06: POC Glucose 146 H 11/13/23 11:26: POC Glucose 125 H D/C Instructions Discharge Diet: 1800 Calorie Control Diet Weight Bearing Status: Full weight bearing Meaningful Use Info Meaningful Use Meaningful Use Diagnoses (Choose all that apply): None applicable Ischemic Stroke Statin Dosing Therapy Reference: STATIN DOSE THERAPY REFERENCE: * Patients > 75 years receive moderate or high dose statin therapy. * Patients 75 years or YOUNGER should receive HIGH intensity statin dose unless contraindicated. You will be required to document reason for non-treatment if statin daily dose does not meet guidelines. HIGH DOSE STATIN THERAPY DAILY Atorvastatin > than or = to 40 mg Rosuvastatin > than or = to 20 mg Amlodipine + Atorvastatin > than or = to 2.5/40 mg Ezetimibe + Simvastatin 10/80 mg Simvastatin 80mg Discharge Plan Admission Admit Date/Time: 11/10/23 18:16 Primary Reason for Your Visit: alcohol detox Attending Provider: Ronnie Witt Primary Care Provider: DAVID ARGUETA Consulting Providers: Wandy Pittman Discharge Orders/Prescriptions Prescriptions: Continued carvedilol 25 mg tablet 12.5 mg PO BID cetirizine 10 mg tablet 10 mg PO DAILY atorvastatin 10 mg tablet 10 mg PO DAILY meloxicam 15 mg tablet 15 mg PO DAILY glipizide 2.5 mg tablet extended release 24hr 2.5 mg PO DAILY metformin 1,000 mg tablet 1,000 mg PO BID lisinopril-hydrochlorothiazide 10-12.5 mg tablet 1 tab PO DAILY albuterol sulfate 90 mcg/actuation HFA aerosol inhaler 1 puff inhalation Q4H PRN PRN (Reason: wheezing) fluoxetine 60 mg tablet 60 mg PO DAILY Eliquis 5 mg tablet 5 mg PO BID Referrals / Follow Up: DAVID ARGUETA CRNP [Primary Care Provider] - Disposition Disposition (needs filled in before D/C Order can be placed): DC/Tx to Another Type of HCF Charges/Coding Visit Charges Inpatient E&M: 87593 Disch Hosp
[2023-11-13 14:49] VITALS: BP 136/74; PULSE 70; RESP 18; TEMP 36.7; O2SAT 98
== END 2023-11-13 14:49 | disposition other institution (70) | DRG 775 ==
LOC: ED 17:28 → MS3 19:49
PROVIDERS: Admitting Provider Internal Medicine; Emergency Provider Emergency Medicine; PCP Nurse Practitioner Adult Health; Visit Provider Internal Medicine
DX: F10.10 Alcohol abuse, uncomplicated (principal); E87.1 Hypo-osmolality and hyponatremia; E11.9 Type 2 diabetes mellitus without complications; E66.01 Morbid (severe) obesity due to excess calories; I10 Essential (primary) hypertension; F32.A Depression, unspecified; I48.0 Paroxysmal atrial fibrillation; M54.50 Low back pain, unspecified; F41.9 Anxiety disorder, unspecified; Z68.41 Body mass index [BMI] 40.0-44.9, adult; M54.2 Cervicalgia; F17.210 Nicotine dependence, cigarettes, uncomplicated; G89.29 Other chronic pain; F43.10 Post-traumatic stress disorder, unspecified; Z59.01 Sheltered homelessness; Z79.01 Long term (current) use of anticoagulants; Z79.84 Long term (current) use of oral hypoglycemic drugs; Z79.899 Other long term (current) drug therapy; Y90.6 Blood alcohol level of 120-199 mg/100 ml
CPT/HCPCS: 36415; 80048; 80053; 80307; 82077; 82962; 83036; 83735; 84443; 85025; 85610; 93005; 97802; 99283; 99406; J7030

== ENCOUNTER 2024-03-26 12:42 | Inpatient (IN) | payer MEDICAID, SELFPAY ==
[2024-03-26 12:43] VITALS: BP 191/104; PULSE 68; RESP 15; TEMP 36.6; O2SAT 98
--- NOTE | 2024-03-26 12:50 | EDS_ITS ---
HPI <CARLOS ENRIQUE Scherer - Last Filed: 03/26/24 14:26> History of Present Illness Chief Complaint: ETOH Intox Narrative Narrative: 48-year-old male presents requesting alcohol detox.He states he drinks 4 pints of beer daily with last drink yesterday morning. He reports increased anxiety but no other symptoms of withdrawal. He has no history of seizures or delirium tremens. States he detoxed at [facility] 6 months ago but then after that had several stressors including his mother's , divorce, and having to leave his apartment so he started drinking again. He smokes about a pack a day of cigarettes but denies other drug use. [facility] <CARLOS ENRIQUE Scherer - Last Filed: 03/26/24 14:26> [facility] Medical History (Updated 03/26/24 @ 14:29 by Patricia Parkinson) Chronic pain Kidney stones Seizures Restless legs Depression Smoker Desire for detoxification Hypertension Tobacco use Alcohol abuse Degeneration of spine PTSD (post-traumatic stress disorder) Alcohol abuse Anxiety Depression Diabetes SOB (shortness of breath) HTN (hypertension) Home Medications ?Medication ?Instructions ?Recorded ?Last Taken ?Type albuterol sulfate 90 mcg/actuation 1 puff inhalation Q4H PRN PRN 11/10/23 Unknown History aerosol inhaler wheezing apixaban 5 mg tablet (Eliquis) 5 mg PO BID 11/10/23 Unknown History atorvastatin 10 mg tablet 10 mg PO DAILY 11/10/23 Unknown History carvedilol 25 mg tablet 12.5 mg PO BID 11/10/23 Unknown History cetirizine 10 mg tablet 10 mg PO DAILY 11/10/23 Unknown History fluoxetine 60 mg tablet 60 mg PO DAILY 11/10/23 Unknown History glipizide 2.5 mg tablet, extended 2.5 mg PO DAILY 11/10/23 Unknown History release 24 hr lisinopril 10 1 tab PO DAILY 11/10/23 Unknown History mg-hydrochlorothiazide 12.5 mg tablet meloxicam 15 mg tablet 15 mg PO DAILY 11/10/23 Unknown History metformin 1,000 mg tablet 1,000 mg PO BID 11/10/23 Unknown History empagliflozin 25 mg tablet 25 mg PO DAILY 03/26/24 Unknown History (Jardiance) gabapentin 300 mg capsule 300 mg PO TID 03/26/24 Unknown History Allergy/AdvReac Type Severity Reaction Status Date / Time No Known Allergies Allergy Verified 03/26/24 12:43 Surgical History History of carpal tunnel surgery Social History household members: spouse housing: house Smoking Status: Current every day smoker tobacco type: cigarettes alcohol intake: never ROS <CARLOS ENRIQUE Scherer - Last Filed: 03/26/24 14:26> ROS ED ROS Narrative Constitutional: Negative for fever, chills, malaise. CVS: Negative for palpitations, chest pain. Respiratory: Negative for shortness of breath. GI: Negative for abdominal pain, nausea, vomiting, melena, hematochezia. EXAM <CARLOS ENRIQUE Scherer - Last Filed: 03/26/24 14:26> Physical Exam Narrative Exam Narrative: CONST: Patient sitting in no acute distress. EYES: Normal inspection. NECK: Normal inspection. RESP: No respiratory distress, CTAB. CVS: Regular rate and rhythm, no murmur, no gallop. ABD: Soft and nontender, no guarding or rebound, nondistended, no hepatosplenomegaly. SKIN: Color normal, no rash, warm, dry, intact. EXTREMITIES: Normal appearance, no pedal edema. NEURO: Alert and answering questions appropriately. PSYCH: Normal affect. Const Vital Signs: 03/26/24 12:43 03/26/24 13:42 03/26/24 13:53 Temperature 97.8 F 98.2 F Temperature Source Oral Pulse Rate 68 89 88 Respiratory Rate 15 16 18 Blood Pressure 191/104 H 176/102 H 176/102 H Blood Pressure Mean 133 126 126 Pulse Ox 98 99 97 Oxygen Delivery Method Room Air Room Air <Dr. Jose Saavedra MD - Last Filed: 03/26/24 14:30> Physical Exam Const Vital Signs: 03/26/24 12:43 03/26/24 13:42 03/26/24 13:53 Temperature 97.8 F 98.2 F Temperature Source Oral Pulse Rate 68 89 88 Respiratory Rate 15 16 18 Blood Pressure 191/104 H 176/102 H 176/102 H Blood Pressure Mean 133 126 126 Pulse Ox 98 99 97 Oxygen Delivery Method Room Air Room Air MDM <CARLOS ENRIQUE Scherer - Last Filed: 03/26/24 14:26> [facility] Narrative Medical decision making narrative: 48-year-old male presents requesting alcohol detox. Last drink was yesterday m orning. He is awake and alert in no distress. He is hypertensive at 191/104 with otherwise normal vital signs. He does have a history of hypertension on medication. He has no active signs of withdrawal. Overall his labs including CBC and CMP are unremarkable. His glucose is 195 consistent with his history of diabetes with normal CO2 and anion gap. Urine drug screen and alcohol levels are negative. He was given IV Ativan for anxiety and a nicotine patch. I discussed the case with the hospitalist for admission for alcohol detox. Lab Data Attestation: I reviewed the patient's lab results. Labs: Laboratory Results - last 24 hr 03/26/24 03/26/24 13:00 13:15 WBC 7.4 RBC 4.75 Hgb 15.7 Hct 44.9 MCV 94.5 H MCH 33.1 H MCHC 35.0 RDW Std Deviation 49.0 H RDW Coeff of Rachel 14.2 Plt Count 222 MPV 9.1 Immature Gran % (Auto) 0.700 Neut % (Auto) 63.6 Lymph % (Auto) 21.5 [place] % (Auto) 10.9 H Eos % (Auto) 2.6 Baso % (Auto) 0.7 Absolute Neuts (auto) 4.7 Absolute Lymphs (auto) 1.59 Nucleated RBC % 0 Sodium 134 L Potassium 4.2 Chloride 104 Carbon Dioxide 25.0 Anion Gap 4 L BUN 17 Creatinine 0.85 Estim Creat Clear Calc 159.55 Est GFR (MDRD) Af Amer 123 Est GFR (MDRD) Non-Af 102 BUN/Creatinine Ratio 20.0 Glucose 195 H Calcium 9.4 Total Bilirubin 0.40 AST 16 ALT 34 Alkaline Phosphatase 119 H Total Protein 7.7 Albumin 3.3 Globulin 4.4 H Albumin/Globulin Ratio 0.8 L Urine Opiates Screen NEGATIVE Urine Methadone Screen NEGATIVE Ur Barbiturates Screen NEGATIVE Ur Phencyclidine Scrn NEGATIVE Ur Amphetamines Screen NEGATIVE MDMA (Ecstasy) Screen NEGATIVE U Benzodiazepines Scrn NEGATIVE Urine Cocaine Screen NEGATIVE U Cannabinoids Screen NEGATIVE Ur Drug Screen Comment Ethyl Alcohol < 3.0 <Dr. Jose Saavedra MD - Last Filed: 03/26/24 14:30> MDM Lab Data Labs: Laboratory Results - last 24 hr 03/26/24 03/26/24 13:00 13:15 WBC 7.4 RBC 4.75 Hgb 15.7 Hct 44.9 MCV 94.5 H MCH 33.1 H MCHC 35.0 RDW Std Deviation 49.0 H RDW Coeff of Rachel 14.2 Plt Count 222 MPV 9.1 Immature Gran % (Auto) 0.700 Neut % (Auto) 63.6 Lymph % (Auto) 21.5 [place] % (Auto) 10.9 H Eos % (Auto) 2.6 Baso % (Auto) 0.7 Absolute Neuts (auto) 4.7 Absolute Lymphs (auto) 1.59 Nucleated RBC % 0 Sodium 134 L Potassium 4.2 Chloride 104 Carbon Dioxide 25.0 Anion Gap 4 L BUN 17 Creatinine 0.85 Estim Creat Clear Calc 159.55 Est GFR (MDRD) Af Amer 123 Est GFR (MDRD) Non-Af 102 BUN/Creatinine Ratio 20.0 Glucose 195 H Calcium 9.4 Total Bilirubin 0.40 AST 16 ALT 34 Alkaline Phosphatase 119 H Total Protein 7.7 Albumin 3.3 Globulin 4.4 H Albumin/Globulin Ratio 0.8 L Urine Opiates Screen NEGATIVE Urine Methadone Screen NEGATIVE Ur Barbiturates Screen NEGATIVE Ur Phencyclidine Scrn NEGATIVE Ur Amphetamines Screen NEGATIVE MDMA (Ecstasy) Screen NEGATIVE U Benzodiazepines Scrn NEGATIVE Urine Cocaine Screen NEGATIVE U Cannabinoids Screen NEGATIVE Ur Drug Screen Comment Ethyl Alcohol < 3.0 Treatment and Re-Evaluation Narrative: I have personally performed a face to face assessment of the patient and have reviewed the MELVA Note. I performed a substantive portion of the visit including all aspects of the following. My shannon findings include: History is wanting detox from alcohol. Daily beer drinker, no withdrawal symptoms in the mornings, for about the past 8 or 9 months. States he wants help because he cannot stop drinking. Exam is NAD, no tachycardia, lungs clear, abdomen soft nontender nondistended no jaundice or scleral icterus Medical Decison Making labs obtained we will watch his blood pressure which is on the high side, he is wanting something for anxiety, discussed with hospitalist for admission for detox. Other additions or changes: [None] Discharge Plan Triage Chief Complaint: ETOH Intox ED Midlevel Provider: Tegan Diaz ED Provider: Jose Saavedra Dx/Rx/DC Orders Clinical Impression: Alcohol abuse, Desire for detoxification Primary Care Provider: DAVID ARGUETA Disposition Disposition: Acute Care Hospital [facility]
[2024-03-26 12:59] VITALS: BMI 43.1
[2024-03-26 13:25] LABS: Absolute Lymphocyte Count 1.59 X10^3/uL (0.83-4.51); Absolute Neutrophil Count 4.7 X10^3/uL (2.0-7.7); Basophil# 0.05 X10^3/uL; Basophil% 0.7 % (0-1); Eosinophil# 0.19 X10^3/uL; Eosinophils% 2.6 % (0-5); Hematocrit 44.9 % (40-54); Hemoglobin 15.7 g/dL (13.0-16.5); Lymphocyte # 1.59 X10^3/ul (0.83-4.51); Lymphocyte % 21.5 % (19-41); Mean Corpuscular Hgb 33.1 pg (27.0-32.0); Mean Corpuscular Volume 94.5 fL (80-94); Mean Platelet Vol. 9.1 fl (6.2-12.0); Monocyte# 0.81 X10^3/uL; Monocyte% 10.9 % (0-10); NRBC Flagged by Analyzer 0 % (0-5); Neutrophil # 4.71 X10^3/uL (2.7-7.7); Neutrophil % 63.6 % (47-70); Platelet Count 222 K/mm3 (150-450); RBC Distribution Width CV 14.2 % (11.6-14.6); Red Blood Count 4.75 M/mm3 (4.6-6.2); White Blood Count 7.4 K/mm3 (4.4-11.0)
[2024-03-26] MEDS: LORazepam 2 MG/ML Syringe 1 MG IV (13:26)
[2024-03-26 13:42] VITALS: BP 176/102; PULSE 89; RESP 16; O2SAT 99
[2024-03-26 13:53] VITALS: BP 176/102; PULSE 88; RESP 18; TEMP 36.8; O2SAT 97
--- NOTE | 2024-03-26 13:53 | HP.PCM.HOS_ITS ---
HPI - General General Date of Admission: 03/26/24 Date of Service: 03/26/24 Chief Complaint: EtOH withdrawal, treatment HPI Narrative The patient is a 48 y/o M w/ PMHx: Homelessness living in his vehicle, Tobacco use, Asthma with allergic rhinitis, Morbid obesity, HTN, HLD, Anxiety and Depression/PTSD, Diabetes mellitus type II, RLS who presents to the [facility] on 03/26/2024 w/ noted acute EtOH withdrawal, onset starting over the last 24 hours following last EtOH intake approximately yesterday AM with normal intake approximately 4 pints of alcohol (beer) daily with last alcohol withdrawal treatment approximately 6 months prior with onset increased anxiety, tremors, agitation, tactile disturbances. Patient interested in attaining sober status. Workup in the ED included T97.8, heart rate 68, BP 191/104, respiratory rate 15, 98% room air, CBC with WBC 7.4, hemoglobin 15.7, platelet 222 without marked shift, CMP with sodium 134, BUN/creatinine 17/0.85, GFR 102, glucose 195, alk phos 119 otherwise hepatic profile not marked appearing, UDS negative, ethyl alcohol less than 3. In the ED patient administered Ativan IV 1 mg x 1 as well as nicotine patch 21 mg transdermal x 1. [facility] Medical History Allergic rhinitis Asthma Anxiety and depression Chronic pain Kidney stones Restless legs Hypertension Tobacco use Alcohol abuse Degeneration of spine PTSD (post-traumatic stress disorder) Diabetes Home Medications ?Medication ?Instructions ?Recorded ?Last Taken ?Type albuterol sulfate 90 mcg/actuation 1 puff inhalation Q4H PRN PRN 11/10/23 Unknown History aerosol inhaler wheezing apixaban 5 mg tablet (Eliquis) 5 mg PO BID 11/10/23 Unknown History atorvastatin 10 mg tablet 10 mg PO DAILY 11/10/23 Unknown History carvedilol 25 mg tablet 12.5 mg PO BID 11/10/23 Unknown History cetirizine 10 mg tablet 10 mg PO DAILY 11/10/23 Unknown History fluoxetine 60 mg tablet 60 mg PO DAILY 11/10/23 Unknown History glipizide 2.5 mg tablet, extended 2.5 mg PO DAILY 11/10/23 Unknown History release 24 hr lisinopril 10 1 tab PO DAILY 11/10/23 Unknown History mg-hydrochlorothiazide 12.5 mg tablet meloxicam 15 mg tablet 15 mg PO DAILY 11/10/23 Unknown History metformin 1,000 mg tablet 1,000 mg PO BID 11/10/23 Unknown History empagliflozin 25 mg tablet 25 mg PO DAILY 03/26/24 Unknown History (Jardiance) gabapentin 300 mg capsule 300 mg PO TID 03/26/24 Unknown History Allergy/AdvReac Type Severity Reaction Status Date / Time No Known Allergies Allergy Verified 03/26/24 12:43 Family History Mother Stomach cancer Father No problems noted. Surgical History History of carpal tunnel surgery Social History household members: none housing: other details: Living in his vehicle. Smoking Status: Current every day smoker tobacco type: cigarettes Smoking packs per day: 1 Smoking cigarettes per day: 20.0 alcohol intake: current alcohol intake frequency: 3 or more drinks per day details: 4-pints beer daily. substance use type: does not use ROS ROS Narrative Admission Review of Systems: CONSTITUTIONAL: No weight loss, fever, chills, + weakness or fatigue. HEENT: Eyes: No visual loss, blurred vision, double vision or yellow sclerae. Ears, Nose, Throat: No hearing loss, sneezing, congestion, runny nose or sore throat. SKIN: No rash or itching, lesions, wounds except + occasional staged ecchymoses, abrasions. CARDIOVASCULAR: No chest pain, chest pressure or chest discomfort, palpitations, edema, orthopnea, syncopal events. RESPIRATORY: + Occasional cough, wheezing. No shortness of breath, hemoptysis. GASTROINTESTINAL: + Recent mild anorexia, nausea. No vomiting or diarrhea, abdominal pain, melena, BRBPR. GENITOURINARY: No dysuria, frequency, urgency or retention. NEUROLOGICAL: + Mild tremors. No headache, dizziness, syncope, paralysis, ataxia, numbness or tingling in the extremities, focal weakness, change in bowel or bladder control, seizure. MUSCULOSKELETAL: + muscle, back pain, joint pain or stiffness. HEMATOLOGIC: No anemia. + Easy bleeding/bruising. LYMPHATICS: No enlarged nodes. No history of splenectomy. PSYCHIATRIC: + History of anxiety and depression. ENDOCRINOLOGIC: No reports of sweating, cold or heat intolerance. No polyuria or polydipsia. ALLERGIES: + History of asthma, allergic rhinitis. Vital Signs Vital Signs Vital Signs: 03/26/24 12:43 03/26/24 13:42 Temperature 97.8 F Temperature Source Oral Pulse Rate 68 89 Respiratory Rate 15 16 Blood Pressure 191/104 H 176/102 H Blood Pressure Mean 133 126 Pulse Ox 98 99 Oxygen Delivery Method Room Air Room Air Weight Weight: 327 lb 2.656 oz Body Mass Index (BMI) 43.1 Physical Exam Narrative Physical Examination: General: Awake, alert, oriented x 3 and cooperative, seated upright in ED bed, fatigued, mildly restless, notes very mild withdrawal symptoms currently. Skin: Normal color, normal turgor, no icterus, no cyanosis except occasional stage ecchymoses, abrasions. HEENT: AT/NC, EOMI, PERRLA, mildly dry MM, no carotid bruits or JVD noted. Lungs: Mild diminished, greater bases, appropriate effort, occasional end expiratory wheeze, no rales or rhonchi. Heart: Regular rate and rhythm; no gallop, rub audible. Abdomen: Soft, morbidly obese, NTTP, ND, normal BS, no appreciated HSM. Extremities: No cyanosis, no clubbing, mild ankle edema. Neurological: Patient awake, alert, oriented as noted, cognitive function intact; pupils equally reactive to light and accommodation, cranial nerves gross normal, moving all 4 extremities, no focal deficits, strength mildly globally decreased, restless, anxious, very mildly tremulous. Psychiatric: Affect appears flat, fatigued, anxious, does have underlying anxiety and depression. Results Lab / Micro Data 03/26/24 13:15 03/26/24 13:15 Labs: Laboratory Results - last 24 hr 03/26/24 13:00: Ur Drug Screen Comment 03/26/24 13:15: WBC 7.4, RBC 4.75, Hgb 15.7, Hct 44.9, MCV 94.5 H, MCH 33.1 H, MCHC 35.0, RDW Std Deviation 49.0 H, RDW Coeff of Rachel 14.2, Plt Count 222, MPV 9.1, Immature Gran % (Auto) 0.700, Neut % (Auto) 63.6, Lymph % (Auto) 21.5, [place] % (Auto) 10.9 H, Eos % (Auto) 2.6, Baso % (Auto) 0.7, Absolute Neuts (auto) 4.7, Absolute Lymphs (auto) 1.59, Nucleated RBC % 0 Assessment & Plan Assessment/Plan (1) Alcohol withdrawal: PLAN: Plan The patient is a 48 y/o M w/ PMHx: Homelessness living in his vehicle, Tobacco use, Asthma with allergic rhinitis, Morbid obesity, HTN, HLD, Anxiety and Depression/PTSD, Diabetes mellitus type II, RLS who presents to the [facility] on 03/26/2024 w/ noted acute EtOH withdrawal. #1. Acute EtOH Withdrawal: Will admit to [facility], routine labs obtained in the ED upon presentation requested and pending at evaluation. Given interest in sobriety, will initiate and continue on protocol with taper course of Phenobarbital, as needed gabapentin, Catapres, Bentyl, Vistaril, IV fluids, IV antiemetics, Tylenol as needed for pain. Will consult Case management for assistance for transition to next level of rehabilitation care. Mag, phos pending. Maintain on CIWA protocol concurrently. #2. Possible Hypercoagulable status of unclear specific etiology, suspect prior VTE (DVT, PE): Patient is on Eliquis 5 mg p.o. twice daily last filled 03/01/2024, from records he has been on this since at least his previous admission 10/2023, requested primarily office to be contacted to verify specific reason of usage but suspect likely VTE. #3. Acute Constipation: Notes recently increased constipation, discussed options and will start miralax regimen. #4. Diabetes mellitus type II with chronic neuropathy: Hold oral home regimen, ADA diet, accu checks w/ ISS, continue lower dose 3 times daily gabapentin regimen. #5. Chronic asthma with allergic rhinitis: Not on any chronic inhalers, encouraged tobacco cessation, PRN albuterol, continue home cetirizine regimen. #6. Hypertension, uncontrolled: BP notably elevated in the ED, likely related with withdrawal symptoms, will continue home regimen including lisinopril, Coreg, hydrochlorothiazide, PRN hydralazine. Pending response and improvement with withdrawal treatment may necessitate alteration of home regimen. #7. Hyperlipidemia: We will continue patient home statin therapy. #8. Anxiety and depression/PTSD: We will continue patient on fluoxetine regimen. #9. Tobacco Abuse: Encouraged cessation, inpatient consultation per RT, NR if desired. #10. Homeless status: Patient unfortunately has been living in his vehicle, case management/social work consulted especially given risk of patient's with recent low temperatures. They will assist in placement following hospitalization. #11. DVT prophylaxis: Will continue patient Eliquis regimen as noted. Patient also requested SCDs for comfort. Charges/Coding Visit Charges Inpatient E&M: 98261 Init Hosp L3
--- NOTE | 2024-03-26 13:53 | ED.RN ---
Pt declines removing his pajama pants at this time, voices understanding that he may have to remove them upon admission. Also wearing shoes as he has a difficult time ambulating, requires wheeled walker.
[2024-03-26 14:00] VITALS: BP 168/99; PULSE 81; RESP 16; O2SAT 98
[2024-03-26 14:08] LABS: Amphetamine Urine VISTA NEGATIVE (<1000 ng/mL); Barbiturate Urine VISTA NEGATIVE (< 200 ng/mL); Benzodiazepine Urine VISTA NEGATIVE (< 200 ng/mL); Cocaine Urine VISTA NEGATIVE (< 300 ng/mL); Ecstacy Urine VISTA NEGATIVE (< 500 ng/mL); Methadone Urine VISTA NEGATIVE (< 300 ng/mL); PCP Urine VISTA NEGATIVE (< 25 ng/mL); THC Urine VISTA NEGATIVE (< 50 ng/mL); Vista UDS pH Range 6
[2024-03-26 14:16] LABS: Alcohol, Blood (Medical)-Serum < 3.0 mg/dL
[2024-03-26 14:20] LABS: ALB/GLOB Ratio 0.8 RATIO (0.9-2.4); AST(SGOT) 16 U/L (15-37); Alanine Aminotransfer ALT/SGPT 34 U/L (16-61); Albumin, Serum 3.3 g/dL (3.2-5.0); Alkaline Phosphatase 119 U/L (45-117); Anion Gap 4 (5-15); BUN 17 mg/dL (7-18); Calcium,Total 9.4 mg/dL (8.5-10.1); Chloride 104 mmol/L (98-107); Creatinine, Serum 0.85 mg/dL (0.70-1.30); EST Glomerular Filtration Rate 102 mL/min (>60); Est Glom Filt Rate - Afr Amer 123 mL/min (>60); Estimated Creatinine Clearance 159.55 ml/min; Globulin 4.4 g/dL (2.2-4.2); Glucose 195 mg/dL (74-106); Potassium 4.2 mmol/L (3.5-5.1); Protein, Total 7.7 g/dL (6.4-8.2); Sodium Level 134 mmol/L (136-145)
[2024-03-26 15:03] LABS: Phosphorus 3.9 mg/dL (2.5-4.9)
[2024-03-26 15:16] VITALS: BMI 42.7
[2024-03-26 15:37] VITALS: BP 157/73; PULSE 62; RESP 18; TEMP 36.6; O2SAT 96
[2024-03-26] MEDS: Lactated Ringers 1,000 ML 125 ML IV (15:46)
[2024-03-26] MEDS: Phenobarbital 32.4 MG Tablet 64.8 MG PO ×2 (17:04→22:46)
[2024-03-26] MEDS: Polyethylene Glycol 3350 17 GM PACKET PO (17:04)
[2024-03-26] MEDS: Insulin Lispro 100 UNIT/ML INSULN.PEN SC ×2 (17:18→23:06)
[2024-03-26] MEDS: Gabapentin 300 MG Capsule PO ×2 (17:18→23:01)
[2024-03-26] MEDS: Acetaminophen 325 MG Tablet 650 MG PO ×2 (17:18→23:00)
[2024-03-26 17:31] LABS: Bedside Glucose 172 mg/dL (74-106)
[2024-03-26 22:46] VITALS: BP 173/93; PULSE 73; RESP 18; TEMP 36.6; O2SAT 96
[2024-03-26] MEDS: 0.9% Saline Lock 10 ML Syringe IV (22:47)
[2024-03-26] MEDS: Carvedilol 12.5 MG Tablet PO (22:51)
[2024-03-26] MEDS: APIXABAN 5 MG TABLET PO (22:51)
[2024-03-26] MEDS: traZODone 100 MG Tablet PO (23:00)
[2024-03-26] MEDS: hydrOXYzine PAM 25 MG Capsule 50 MG PO (23:01)
[2024-03-26 23:42] LABS: Bedside Glucose 241 mg/dL (74-106)
[2024-03-27] VITALS (8 sets, daily range): BP systolic 133–173; BP diastolic 49–95; PULSE 65–79; RESP 16–20; TEMP 36.4–37.1; O2SAT 94–97
[2024-03-27] MEDS: Phenobarbital 32.4 MG Tablet 64.8 MG PO ×6 (02:08→20:40)
[2024-03-27] MEDS: hydrOXYzine PAM 25 MG Capsule 50 MG PO ×3 (05:28→21:01)
[2024-03-27] MEDS: Acetaminophen 325 MG Tablet 650 MG PO ×2 (05:29→15:40)
[2024-03-27] MEDS: Gabapentin 300 MG Capsule PO ×3 (05:30→21:01)
[2024-03-27] MEDS: Insulin Lispro 100 UNIT/ML INSULN.PEN SC ×4 (07:07→21:03)
[2024-03-27 07:31] LABS: Bedside Glucose 197 mg/dL (74-106)
--- NOTE | 2024-03-27 07:42 | PCM.PN.HOSP ---
Reason for Visit Reason for Visit: Diagnoses Alcohol use, unspecified with withdrawal, unspecified (03/26/24) Subjective Subjective Patient feeling anxious and generally just not feeling well but denies any other acute or new complaints Objective Data Objective Data Vital Signs: Vital Signs Temp Pulse Resp BP Pulse Ox O2 Del Method 97.5 F L 65 20 H 166/90 H 95 Room Air 03/27/24 05:27 03/27/24 05:27 03/27/24 05:27 03/27/24 05:27 03/27/24 05:27 03/27/24 05:27 Oxygen Delivery Method Room Air Weight: 147.009 kg Body Mass Index (BMI) 42.7 Intake & Output: Intake and Output for Last 24 Hours 03/25/24 03/26/24 03/27/24 23:59 23:59 23:59 Intake Total 400 / 400 1000 / 1000 Balance 400 / 400 1000 / 1000 Lab / Micro Data 03/26/24 13:15 03/26/24 13:15 Labs: Laboratory Results - last 24 hr 03/26/24 13:00: Urine Opiates Screen NEGATIVE, Urine Methadone Screen NEGATIVE, Ur Barbiturates Screen NEGATIVE, Ur Phencyclidine Scrn NEGATIVE, Ur Amphetamines Screen NEGATIVE, MDMA (Ecstasy) Screen NEGATIVE, U Benzodiazepines Scrn NEGATIVE, Urine Cocaine Screen NEGATIVE, U Cannabinoids Screen NEGATIVE, Ur Drug Screen Comment 03/26/24 13:15: WBC 7.4, RBC 4.75, Hgb 15.7, Hct 44.9, MCV 94.5 H, MCH 33.1 H, MCHC 35.0, RDW Std Deviation 49.0 H, RDW Coeff of Rachel 14.2, Plt Count 222, MPV 9.1, Immature Gran % (Auto) 0.700, Neut % (Auto) 63.6, Lymph % (Auto) 21.5, [place] % (Auto) 10.9 H, Eos % (Auto) 2.6, Baso % (Auto) 0.7, Absolute Neuts (auto) 4.7, Absolute Lymphs (auto) 1.59, Nucleated RBC % 0, Sodium 134 L, Potassium 4.2, Chloride 104, Carbon Dioxide 25.0, Anion Gap 4 L, BUN 17, Creatinine 0.85, Estim Creat Clear Calc 159.55, Est GFR (MDRD) Af Amer 123, Est GFR (MDRD) Non-Af 102, BUN/Creatinine Ratio 20.0, Glucose 195 H, Calcium 9.4, Phosphorus 3.9, Magnesium 2.0, Total Bilirubin 0.40, AST 16, ALT 34, Alkaline Phosphatase 119 H, Total Protein 7.7, Albumin 3.3, Globulin 4.4 H, Albumin/Globulin Ratio 0.8 L, Ethyl Alcohol < 3.0 03/26/24 17:10: POC Glucose 172 H 03/26/24 23:04: POC Glucose 241 H 03/27/24 07:05: POC Glucose 197 H Physical Exam Narrative General: Alert, oriented, no apparent distress HEENT: Atraumatic, normocephalic Eyes: extraocular movements grossly intact Neck: Supple Respiratory: normal respiratory effort Cardiovascular: Regular rate GI: nondistended Extremities: Moving all extremities Neuro: No overt focal neurological deficits Psych: Cooperative Assessment & Plan Assessment/Plan (1) Alcohol withdrawal: PLAN: Plan #Alcohol use disorder - We will begin CIWA every 4 for 24 hours, then every 6 for 24 hours, then every 12 until discharge -Will begin phenobarbital taper -Gabapentin 300 mg every 8 as needed -Will start Bentyl and hydroxyzine as needed as well as loperamide as needed -Trazodone 100 mg p.o. nightly as needed sleep -Begin thiamine and folic acid supplementation -Zofran as needed for nausea -Case management consult to assist with discharge planning -EtOH less than 3 on admission -UDS negative #Type 2 diabetes mellitus -Glucose checks and sliding scale insulin # Chronic peripheral neuropathy -Continue gabapentin #Hypertension -Continue home lisinopril and hydrochlorothiazide as well as home Coreg -Can make adjustments if blood pressure persistently elevated however suspect some of it is due to alcohol withdrawal #Depression/anxiety -Continue home Prozac #Tobacco use -Advise cessation -Nicotine replacement available if desired # Homelessness -Patient homeless and living in his car, will request case management consultation -Complicates care and disposition # History of a flutter 1 year ago -Patient on Eliquis for this, will continue #DVT ppx: Jolene Pittman MD Charges/Coding Visit Charges Inpatient E&M: 47267 Subs Hosp L2
[2024-03-27] MEDS: Folic Acid 1 MG Tablet PO (08:08)
[2024-03-27] MEDS: Thiamine Hydrochloride 100 MG Tablet PO (08:09)
[2024-03-27] MEDS: Loratadine 10 MG Tablet PO (11:12)
[2024-03-27] MEDS: Carvedilol 12.5 MG Tablet PO ×2 (11:12→21:01)
[2024-03-27] MEDS: Polyethylene Glycol 3350 17 GM PACKET PO (11:13)
[2024-03-27] MEDS: Atorvastatin Calcium 10 MG Tablet PO (11:13)
[2024-03-27] MEDS: hydroCHLOROthiazide 12.5mg 12.5 MG PO (11:13)
[2024-03-27] MEDS: APIXABAN 5 MG TABLET PO ×2 (11:13→21:01)
[2024-03-27] MEDS: FLUoxetine 20 MG Capsule 60 MG PO (11:14)
[2024-03-27] MEDS: Meloxicam 15 MG Tablet PO (11:14)
[2024-03-27] MEDS: Lisinopril 10 MG Tablet PO (11:15)
[2024-03-27 11:54] LABS: Bedside Glucose 233 mg/dL (74-106)
--- NOTE | 2024-03-27 14:57 | CASEMGMT ---
Social Work SW met with pt to complete SDOH screening. Pt is currently homeless and lving out of his car. Pt states he has been doing this for the better part of a year. Pt has difficulty with food and transportation. Pt will be going from the hospital to an inpatient alcohol recovery program. SW provided pt with local resources for housing, food, transportation and car repair. Pt accepting and appreciative of information. LEE Olivares
--- NOTE | 2024-03-27 15:56 | ADDICTION ---
This content writer met with PT to conduct ASAM, MSE, and AUDIT assessments and to plan for d/c. PT A+Ox4 and participated actively. All assessments completed and placed in PT's chart. PT plans to f/u with inpatient treatment through [facility] in [place], [place]. [facility] to provide transportation 03/29/2024 at 12PM.
[2024-03-27 17:12] LABS: Bedside Glucose 232 mg/dL (74-106)
[2024-03-27] MEDS: traZODone 100 MG Tablet PO (21:18)
[2024-03-27 21:36] LABS: Bedside Glucose 201 mg/dL (74-106)
[2024-03-28] MEDS: Phenobarbital 32.4 MG Tablet 64.8 MG PO ×7 (00:11→22:55)
[2024-03-28 03:37] VITALS: BP 135/76; PULSE 61; RESP 16; TEMP 36.3; O2SAT 95
[2024-03-28] MEDS: Gabapentin 300 MG Capsule PO ×3 (06:57→22:04)
[2024-03-28] MEDS: Insulin Lispro 100 UNIT/ML INSULN.PEN SC ×4 (06:57→22:08)
[2024-03-28 07:10] LABS: Bedside Glucose 207 mg/dL (74-106)
[2024-03-28 07:16] VITALS: O2SAT 95
--- NOTE | 2024-03-28 07:52 | PCM.PN.HOSP ---
Reason for Visit Reason for Visit: Diagnoses Alcohol use, unspecified with withdrawal, unspecified (03/26/24) Subjective Subjective Feeling little bit better today, presently little bit less anxious. No new or acute complaints other than feeling little bit tired, patient to go to inpatient rehab tomorrow Objective Data Objective Data Vital Signs: Vital Signs Temp Pulse Resp BP Pulse Ox O2 Del Method 97.4 F L 61 16 135/76 H 95 Room Air 03/28/24 03:37 03/28/24 03:37 03/28/24 03:37 03/28/24 03:37 03/28/24 03:37 03/28/24 03:37 Oxygen Delivery Method Room Air Weight: 147.009 kg Body Mass Index (BMI) 42.7 Intake & Output: Intake and Output for Last 24 Hours 03/26/24 03/27/24 03/28/24 23:59 23:59 23:59 Intake Total 400 / 400 1600 / 1800 300 / 300 Balance 400 / 400 1600 / 1800 300 / 300 Lab / Micro Data 03/26/24 13:15 03/26/24 13:15 Labs: Laboratory Results - last 24 hr 03/27/24 11:27: POC Glucose 233 H 03/27/24 16:43: POC Glucose 232 H 03/27/24 21:02: POC Glucose 201 H 03/28/24 06:52: POC Glucose 207 H Social Homelessness:: Unsheltered Physical Exam Narrative General: Alert, oriented, no apparent distress HEENT: Atraumatic, normocephalic Eyes: extraocular movements grossly intact Neck: Supple Respiratory: normal respiratory effort Cardiovascular: no edema appreciated GI: nondistended Extremities: Moving all extremities Neuro: No overt focal neurological deficits Psych: Cooperative Assessment & Plan Assessment/Plan (1) Alcohol withdrawal: PLAN: Plan #Alcohol use disorder - We will begin CIWA every 4 for 24 hours, then every 6 for 24 hours, then every 12 until discharge -Will begin phenobarbital taper -Gabapentin 300 mg every 8 as needed -Will start Bentyl and hydroxyzine as needed as well as loperamide as needed -Trazodone 100 mg p.o. nightly as needed sleep -Begin thiamine and folic acid supplementation -Zofran as needed for nausea -Case management consult to assist with discharge planning -EtOH less than 3 on admission -UDS negative -03/28: Patient to go to inpatient treatment, plan is for tomorrow with transport at 12 PM #Type 2 diabetes mellitus -Glucose checks and sliding scale insulin -03/28: Still remains high, will uptitrate sliding scale insulin Chronic medical problems: # Chronic peripheral neuropathy -Continue gabapentin #Hypertension -Continue home lisinopril and hydrochlorothiazide as well as home Coreg -Can make adjustments if blood pressure persistently elevated however suspect some of it is due to alcohol withdrawal #Depression/anxiety -Continue home Prozac #Tobacco use -Advise cessation -Nicotine replacement available if desired # Homelessness -Patient homeless and living in his car, will request case management consultation -Complicates care and disposition # History of a flutter 1 year ago -Patient on Eliquis for this, will continue #DVT ppx: Jolene Pittman MD Charges/Coding Visit Charges Inpatient E&M: 33883 Subs Hosp L1
[2024-03-28] MEDS: Folic Acid 1 MG Tablet PO (09:02)
[2024-03-28] MEDS: Thiamine Hydrochloride 100 MG Tablet PO (09:03)
[2024-03-28] MEDS: Carvedilol 12.5 MG Tablet PO ×2 (09:03→22:05)
[2024-03-28] MEDS: APIXABAN 5 MG TABLET PO ×2 (09:03→22:04)
[2024-03-28] MEDS: Loratadine 10 MG Tablet PO (09:03)
[2024-03-28] MEDS: Atorvastatin Calcium 10 MG Tablet PO (09:04)
[2024-03-28] MEDS: hydroCHLOROthiazide 12.5mg 12.5 MG PO (09:04)
[2024-03-28] MEDS: Polyethylene Glycol 3350 17 GM PACKET PO (09:04)
[2024-03-28] MEDS: Meloxicam 15 MG Tablet PO (09:04)
[2024-03-28] MEDS: Lisinopril 10 MG Tablet PO (09:05)
[2024-03-28] MEDS: FLUoxetine 20 MG Capsule 60 MG PO (09:05)
[2024-03-28 09:37] VITALS: BP 152/86; PULSE 88; RESP 17; TEMP 36.6; O2SAT 95
[2024-03-28 11:48] LABS: Bedside Glucose 200 mg/dL (74-106)
[2024-03-28 14:08] VITALS: BP 131/75; PULSE 78; RESP 17; TEMP 36.7; O2SAT 96
[2024-03-28] MEDS: hydrOXYzine PAM 25 MG Capsule 50 MG PO ×2 (16:31→20:19)
[2024-03-28 17:00] LABS: Bedside Glucose 198 mg/dL (74-106)
[2024-03-28 17:51] VITALS: BP 146/81; PULSE 76; RESP 16; TEMP 36.8; O2SAT 97
[2024-03-28 22:03] VITALS: BP 128/75; PULSE 78; RESP 16; TEMP 36.8; O2SAT 95
[2024-03-28] MEDS: Acetaminophen 325 MG Tablet 650 MG PO (22:24)
[2024-03-28 22:44] LABS: Bedside Glucose 403 mg/dL (74-106)
[2024-03-28] MEDS: MELATONIN 3 MG TABLET PO (22:55)
[2024-03-29] MEDS: Phenobarbital 32.4 MG Tablet 64.8 MG PO ×2 (05:14→11:00)
[2024-03-29] MEDS: Gabapentin 300 MG Capsule PO (05:15)
[2024-03-29 05:17] VITALS: BP 143/87; PULSE 61; RESP 16; TEMP 36.4; O2SAT 93
[2024-03-29] MEDS: Insulin Lispro 100 UNIT/ML INSULN.PEN SC ×2 (06:23→11:41)
[2024-03-29 06:42] LABS: Bedside Glucose 262 mg/dL (74-106)
--- NOTE | 2024-03-29 08:29 | DCINST_ITS ---
Discharge Instructions Diet Discharge Diet: - (DASH diet, calorie controlled) DC O2, CPAP, BIPAP needs Home O2 Discharge instructions: No Dressing / Incision Discharge Activity: Use Walker and - (Return to normal level of activity) Follow Up Care Test Results: Test results from this visit will be discussed in further detail at your follow- up appointment, if applicable. Discharge Plan Admission Admit Date/Time: 03/26/24 13:57 Primary Reason for Your Visit: Alcohol detox Attending Provider: Wandy Pittman Primary Care Provider: DAVID ARGUETA Consulting Providers: Kristine Alexander Instructions Patient Instructions: Addiction: Getting Help, Addiction Recovery Counseling, Addiction Recovery Relapse Discharge Orders/Prescriptions Prescriptions: Continued Jardiance 25 mg tablet 25 mg PO DAILY gabapentin 300 mg capsule 300 mg PO TID carvedilol 25 mg tablet 12.5 mg PO BID cetirizine 10 mg tablet 10 mg PO DAILY atorvastatin 10 mg tablet 10 mg PO DAILY meloxicam 15 mg tablet 15 mg PO DAILY glipizide 2.5 mg tablet extended release 24hr 2.5 mg PO DAILY metformin 1,000 mg tablet 1,000 mg PO BID lisinopril-hydrochlorothiazide 10-12.5 mg tablet 1 tab PO DAILY albuterol sulfate 90 mcg/actuation HFA aerosol inhaler 1 puff inhalation Q4H PRN PRN (Reason: wheezing) fluoxetine 60 mg tablet 60 mg PO DAILY Eliquis 5 mg tablet 5 mg PO BID Referrals / Follow Up: DAVID ARGUETA CRNP [Primary Care Provider] - Within 2 Weeks Disposition Disposition (needs filled in before D/C Order can be placed): DC/Tx to Another Type of HCF
--- NOTE | 2024-03-29 08:32 | PCM.DC.SUM ---
Providers Date of Admission: 03/26/24 Date of Discharge: 03/29/24 Primary Care Physician: KEVIN HAIRSTON Reason For Visit: ETOH WITHDRAWAL Diagnosis Discharge Diagnosis (1) Alcohol withdrawal: Status: Acute Code(s): F10.939 - Alcohol use, unspecified with withdrawal, unspecified Plan #Alcohol use disorder #Type 2 diabetes mellitus # Chronic peripheral neuropathy #Hypertension #Depression/anxiety #Tobacco use # Homelessness # History of a flutter 1 year ago Medications at Discharge Home Medications albuterol sulfate 90 mcg/actuation aerosol inhaler 1 puff inhalation Q4H PRN PRN wheezing 11/10/23 apixaban 5 mg tablet (Eliquis) 5 mg PO BID 11/10/23 atorvastatin 10 mg tablet 10 mg PO DAILY 11/10/23 carvedilol 25 mg tablet 12.5 mg PO BID 11/10/23 cetirizine 10 mg tablet 10 mg PO DAILY 11/10/23 fluoxetine 60 mg tablet 60 mg PO DAILY 11/10/23 glipizide 2.5 mg tablet, extended release 24 hr 2.5 mg PO DAILY 11/10/23 lisinopril 10 mg-hydrochlorothiazide 12.5 mg tablet 1 tab PO DAILY 11/10/23 meloxicam 15 mg tablet 15 mg PO DAILY 11/10/23 metformin 1,000 mg tablet 1,000 mg PO BID 11/10/23 empagliflozin 25 mg tablet (Jardiance) 25 mg PO DAILY 03/26/24 gabapentin 300 mg capsule 300 mg PO TID 03/26/24 Hospital Course Summary of Care Provided Minutes Spent on Discharge: 20 Hospital Course: Patient was admitted 03/26/2024 requesting detox from alcohol. Patient was admitted and detox protocol ordered. They completed a satisfactory amount of their detox and were discharged to inpatient rehab in stable condition. On the day of discharge no new medical complaints voiced. Physical Exam Narrative General: Alert, oriented, no apparent distress HEENT: Atraumatic, normocephalic Eyes: extraocular movements grossly intact Neck: Supple Respiratory: normal respiratory effort Cardiovascular: no edema appreciated GI: nondistended Extremities: Moving all extremities Neuro: No overt focal neurological deficits Psych: Cooperative Medical Records Data Homelessness:: Unsheltered Weight / BMI Weight Weight: 147.009 kg Body Mass Index (BMI) 42.7 ABG / Lab / Microbiology Data 03/26/24 13:15 03/26/24 13:15 Laboratory: Laboratory Results - last 24 hr 03/28/24 11:28: POC Glucose 200 H 03/28/24 16:34: POC Glucose 198 H 03/28/24 22:08: POC Glucose 403 H 03/29/24 06:22: POC Glucose 262 H D/C Instructions Discharge Diet: - (DASH diet, calorie controlled) DC O2, CPAP, BIPAP Needs Home O2 Discharge instructions: No Meaningful Use Info Meaningful Use Meaningful Use Diagnoses (Choose all that apply): None applicable Ischemic Stroke Statin Dosing Therapy Reference: STATIN DOSE THERAPY REFERENCE: * Patients > 75 years receive moderate or high dose statin therapy. * Patients 75 years or YOUNGER should receive HIGH intensity statin dose unless contraindicated. You will be required to document reason for non-treatment if statin daily dose does not meet guidelines. HIGH DOSE STATIN THERAPY DAILY Atorvastatin > than or = to 40 mg Rosuvastatin > than or = to 20 mg Amlodipine + Atorvastatin > than or = to 2.5/40 mg Ezetimibe + Simvastatin 10/80 mg Simvastatin 80mg Discharge Plan Admission Admit Date/Time: 03/26/24 13:57 Primary Reason for Your Visit: Alcohol detox Attending Provider: Wandy Pittman Primary Care Provider: DAVID ARGUETA Consulting Providers: Kristine Alexander Instructions Patient Instructions: Addiction: Getting Help, Addiction Recovery Counseling, Addiction Recovery Relapse Discharge Orders/Prescriptions Prescriptions: Continued Jardiance 25 mg tablet 25 mg PO DAILY gabapentin 300 mg capsule 300 mg PO TID carvedilol 25 mg tablet 12.5 mg PO BID cetirizine 10 mg tablet 10 mg PO DAILY atorvastatin 10 mg tablet 10 mg PO DAILY meloxicam 15 mg tablet 15 mg PO DAILY glipizide 2.5 mg tablet extended release 24hr 2.5 mg PO DAILY metformin 1,000 mg tablet 1,000 mg PO BID lisinopril-hydrochlorothiazide 10-12.5 mg tablet 1 tab PO DAILY albuterol sulfate 90 mcg/actuation HFA aerosol inhaler 1 puff inhalation Q4H PRN PRN (Reason: wheezing) fluoxetine 60 mg tablet 60 mg PO DAILY Eliquis 5 mg tablet 5 mg PO BID Referrals / Follow Up: DAVID ARGUETA CRNP [Primary Care Provider] - Within 2 Weeks Disposition Disposition (needs filled in before D/C Order can be placed): DC/Tx to Another Type of HCF Charges/Coding Visit Charges Inpatient E&M: 11536 Disch Hosp
[2024-03-29 08:40] VITALS: BP 136/80; PULSE 64; RESP 18; TEMP 36.7; O2SAT 94
--- NOTE | 2024-03-29 09:15 | CASEMGMT ---
Addendum entered by Laura Mcdonald 03/29/24 09:46: Received notification from Ryan that the pt rollator is not from [employer] so they could not repair. Pt could obtain a new one but there is a $60 fee for the upgrade to rollator and pt did not want to do this. Original Note: VICKY LEE made aware that pt had questions regarding rollator. VICKY LEE into pt room, pt states his cable is broke on his rollator and asks if a operations and maintenance specialist can fix this. He is aware that this RN JESUS can reach out to the [employer] liaison to see if they could help him or he could take it to a DME supplier. Pt is unsure where his sister bought this one. He is aware that this RN CM can get him a new one but it is not as quite heavy duty as this current one. Pt does not want a new one. VICKY LEE notified Ryan from [employer], he will look at this and see if he is able to help. Pt denies further needs.
--- NOTE | 2024-03-29 10:03 | PHA.DC.MR.R ---
Pharmacy [place] Med Reconciliation Pharmacy Service has performed discharge medication reconciliation for this patient. No new medications, meds reviewed. The patient's discharge medication list was reviewed for discrepancies and discrepancies were resolved. Medications at Discharge Home Medications albuterol sulfate 90 mcg/actuation aerosol inhaler 1 puff inhalation Q4H PRN PRN wheezing 11/10/23 apixaban 5 mg tablet (Eliquis) 5 mg PO BID 11/10/23 atorvastatin 10 mg tablet 10 mg PO DAILY 11/10/23 carvedilol 25 mg tablet 12.5 mg PO BID 11/10/23 cetirizine 10 mg tablet 10 mg PO DAILY 11/10/23 fluoxetine 60 mg tablet 60 mg PO DAILY 11/10/23 glipizide 2.5 mg tablet, extended release 24 hr 2.5 mg PO DAILY 11/10/23 lisinopril 10 mg-hydrochlorothiazide 12.5 mg tablet 1 tab PO DAILY 11/10/23 meloxicam 15 mg tablet 15 mg PO DAILY 11/10/23 metformin 1,000 mg tablet 1,000 mg PO BID 11/10/23 empagliflozin 25 mg tablet (Jardiance) 25 mg PO DAILY 03/26/24 gabapentin 300 mg capsule 300 mg PO TID 03/26/24
[2024-03-29] MEDS: Folic Acid 1 MG Tablet PO (10:48)
[2024-03-29] MEDS: Thiamine Hydrochloride 100 MG Tablet PO (10:48)
[2024-03-29] MEDS: APIXABAN 5 MG TABLET PO (10:49)
[2024-03-29] MEDS: Loratadine 10 MG Tablet PO (10:49)
[2024-03-29] MEDS: Atorvastatin Calcium 10 MG Tablet PO (10:49)
[2024-03-29] MEDS: Carvedilol 12.5 MG Tablet PO (10:49)
[2024-03-29] MEDS: hydroCHLOROthiazide 12.5mg 12.5 MG PO (10:49)
[2024-03-29] MEDS: Polyethylene Glycol 3350 17 GM PACKET PO (10:50)
[2024-03-29] MEDS: FLUoxetine 20 MG Capsule 60 MG PO (10:50)
[2024-03-29] MEDS: Meloxicam 15 MG Tablet PO (10:50)
[2024-03-29] MEDS: Lisinopril 10 MG Tablet PO (10:50)
[2024-03-29 11:39] LABS: Bedside Glucose 276 mg/dL (74-106)
--- NOTE | 2024-03-29 14:52 | CHAPLAIN ---
Type of Pastoral Visit ___ Initial Visit ___ Follow-up Visit ___ On-call Visit ___ General Patient Visit ___ Spiritual Assessment ___ Family Conference ___ Bereavement ___ Rapid Response ___ Code Blue ___ Other (describe below) Pastoral Care Referral From ___ Patient ___ Family ___ Nurse ___ Physician ___ Electrical Logger ___ Scoop Machine Operator ___ Other (describe below) Sacrament/Intervention ___ Active listening ___ Anointing ___ Hinduism ___ Bereavement ___ Communion ___ Maria Dolores exploration ___ ___ Life review ___ Prayer ___ Reconciliation ___ Sacrament of Sick ___ Supportive presence ___ Wedding ___ Other (describe below) Pastoral Comments this patient had already been discharged by the time this nutritionists got to the floor for a visit
== END 2024-03-29 12:35 | disposition other institution (70) | DRG 775 ==
LOC: ED 13:28 → MS3 14:07
PROVIDERS: Physician Assistant; Admitting Provider Family Medicine; Emergency Provider Emergency Medicine; PCP Nurse Practitioner Adult Health; Visit Provider Internal Medicine
DX: F10.239 Alcohol dependence with withdrawal, unspecified (principal); Z59.02 Unsheltered homelessness; E11.40 Type 2 diabetes mellitus with diabetic neuropathy, unspecified; E66.01 Morbid (severe) obesity due to excess calories; I10 Essential (primary) hypertension; F32.A Depression, unspecified; J45.909 Unspecified asthma, uncomplicated; G25.81 Restless legs syndrome; F41.9 Anxiety disorder, unspecified; F17.210 Nicotine dependence, cigarettes, uncomplicated; E78.5 Hyperlipidemia, unspecified; Z68.41 Body mass index [BMI] 40.0-44.9, adult; K59.00 Constipation, unspecified; F43.10 Post-traumatic stress disorder, unspecified; Z79.84 Long term (current) use of oral hypoglycemic drugs; Z79.01 Long term (current) use of anticoagulants; Z79.899 Other long term (current) drug therapy; Z63.4 Disappearance and death of family member; Z63.5 Disruption of family by separation and divorce; Z86.79 Personal history of other diseases of the circulatory system
CPT/HCPCS: 80053; 80307; 82077; 82962; 83735; 84100; 85025; 97162; 97165; 97802; 99283; A4216

== ENCOUNTER 2024-08-03 22:20 | Inpatient (IN) | payer MEDICAID, SELFPAY ==
[2024-08-03 22:20] VITALS: BP 180/101; PULSE 85; RESP 18; TEMP 36.6; O2SAT 94
--- NOTE | 2024-08-03 22:36 | EDS_ITS ---
HPI History of Present Illness Chief Complaint: Substance Abuse Informant: patient Onset/Context/Timing Onset: Month(s) Context: Gradual Onset Timing: Continuous Current Severity: Moderate Maximum Severity: Moderate Narrative Narrative: 48-year-old male history of PTSD and diabetes currently on no medications does not check his blood sugars. History of alcohol abuse last inpatient detox was October at this facility. Patient states he drinks liquor and beer about 7 pints of beer a day and does not give a quantity to the hard alcohol. He has been drinking today. States he wants detox. Denies recent illness. Prior similar symptoms: Yes Recent Illness/Hospitalization: No [facility] Medical History Allergic rhinitis Asthma Anxiety and depression Chronic pain Kidney stones Restless legs Hypertension Tobacco use Alcohol abuse Degeneration of spine PTSD (post-traumatic stress disorder) Diabetes Home Medications ?Medication ?Instructions ?Recorded ?Last Taken ?Type albuterol sulfate 90 mcg/actuation 1 puff inhalation Q 4H PRN PRN 11/10/23 Unknown History aerosol inhaler wheezing apixaban 5 mg tablet (Eliquis) 5 mg PO BID 11/10/23 Un known History atorvastatin 10 mg tablet 10 mg PO DAILY 11/10/23 Unkn own History carvedilol 25 mg tablet 12.5 mg PO BID 11/10/23 Unkn own History cetirizine 10 mg tablet 10 mg PO DAILY 11/10/23 Unkn own History fluoxetine 60 mg tablet 60 mg PO DAILY 11/10/23 Unkn own History glipizide 2.5 mg tablet, extended 2.5 mg PO DAILY 10/16 09/07 Unknown History release 24 hr lisinopril 10 1 tab PO DAILY 11/10/23 Unkn own History mg-hydrochlorothiazide 12.5 mg tablet meloxicam 15 mg tablet 15 mg PO DAILY 11/10/23 Unkn own History metformin 1,000 mg tablet 1,000 mg PO BID 11/10/23 Unk nown History empagliflozin 25 mg tablet 25 mg PO DAILY 03/26/24 Unk nown History (Jardiance) gabapentin 300 mg capsule 300 mg PO TID 03/26/24 Unkno wn History Allergy/AdvReac Type Severity Reaction Status Date / Time trazodone (trazamine) AdvReac Mild Other Verified 08/03/24 22:22 Family History Mother Stomach cancer Father No problems noted. Surgical History History of carpal tunnel surgery Social History household members: none housing: other details: Living in his vehicle. Smoking Status: Current every day smoker tobacco type: cigarettes alcohol intake: current alcohol intake frequency: 3 or more drinks per day details: 4-pints beer daily. substance use type: does not use ROS ROS ED ROS Narrative Denies recent illness. Constitutional Constitutional ED: Denies chills or fever(s) Eyes Eyes: Denies blurry vision ENT ENT ED: Denies ear pain Cardiovascular Cardiovascular: Denies chest pain or palpitations Respiratory/Chest Respiratory/Chest: Denies cough or dyspnea Gastrointestinal Gastrointestinal: Denies abdominal pain, diarrhea, nausea or vomiting Genitourinary Genitourinary ED: Denies dysuria Musculoskeletal Musculoskeletal: Denies arthralgias Integumentary Denies abscess Neurologic Neurologic: Denies headache(s) Psychiatric Psychiatric: Denies anxiety Endocrine Endocrinology: Denies cold intolerance Hematologic/Lymphatic Hematologic/Lymphatic: Denies easy bleeding, easy bruising or lymphadenopathy Allergic/Immunologic Allergic/Immunologic ED: Denies mouth swelling, tongue swelling or urticaria EXAM Physical Exam Narrative Exam Narrative: 48-year-old male sitting upright vital signs are stable afebrile initial blood pressure elevated 180/101. He does not look septic or toxic. Smells of alcohol most likely intoxicated. H EENT exam pupils round react light. No trauma to his face or scalp. Moist mucous membranes. Neck nontender no lymphadenopathy. Lungs clear to auscultation bilateral. Heart regular rhythm rate about 80 no murmur. Chest wall ribs nontender. Abdomen soft nontender. Back nontender. Moving all 4 extremities. Equal symmetrical 5 out of 5 front end engineer strength. Dorsi plantarflexion intact. Nontender. Neurologically he is awake and alert. Answering questions and following commands. No focal motor deficits. Benign exam. Const Vital Signs: 08/03/24 22:20 Temperature 98 F Temperature Source Oral Pulse Rate 85 Respiratory Rate 18 Blood Pressure 180/101 H Blood Pressure Mean 127 Pulse Ox 94 Oxygen Delivery Method Room Air Positive well nourished, well developed and obese; Negative for cachectic, contractures or unkempt General Appearance ED: well developed and NAD; Negative for unkempt, cachectic, contractures or pallor Nutritional Appearance: obese; Negative for cachectic HEENT Reports moist mucous membranes atraumatic; Negative for trauma or tenderness Eyes PERRL and EOMs intact bilaterally Neck no lymphadenopathy, supple and no JVD Lymph Lymphatic: no lymphadenopathy noted Chest Wall inspection of chest normal and palpation of chest normal Resp normal respiratory effort and clear to auscultation bilaterally Cardio regular rate, regular rhythm, S1 normal heart sound, S2 normal heart sound and no murmurs GI soft to palpation, non-tender, non-distended and no masses Palpation: Negative for tender or guarding Back/Spine no CVA tenderness Extremity General Extremety ED: Negative for tenderness Neuro oriented x3 and CN's II-XII intact bilaterally Sensorium / Orientation: alert, oriented to person, oriented to place and oriented to time; Negative for confused, lethargic or stuporous Speech: speech normal Motor Exam: strength 5/5 throughout Psych mental status grossly normal and thought process normal Appearance: Negative for unkempt Skin General Skin Exam: Negative for jaundice or pallor Lesions: no lesions Rashes: no rashes Trauma: Negative for abrasion or laceration MDM MDM MDM Narrative Medical decision making narrative: 48-year-old male history of diabetes with a history of alcohol and marijuana abuse requesting detox. Screening labs to be obtained. He has a benign exam. I will speak to hospitalist about admission when the labs return. Repeat exam patient doing well at 11:35 PM. Hospitalist on page for admission. History & Record Review Discussion w/independent historian: Patient Additional record(s) reviewed:: Prior inpatient record, Prior outpatient record, Prior ED visit and Prior labs Lab Data Attestation: I reviewed the patient's lab results. Lab results narrative: CBC normal. White count 9. H&H 16 and 47. Platelets 254. Serum tox screen is positive only for cannabis. Alcohol elevated to 25. Chemistry showed sodium 135. Gap 16. BUN 9 creatinine 0.79. Glucose elevated 269. Liver enzymes normal. Labs: Laboratory Results - last 24 hr 08/03/24 08/03/24 22:43 22:59 WBC 9.1 RBC 5.26 Hgb 16.4 Hct 47.1 MCV 89.5 MCH 31.2 MCHC 34.8 RDW Std Deviation 46.0 H RDW Coeff of Rachel 14.2 Plt Count 254 MPV 9.1 Immature Gran % (Auto) 0.300 Neut % (Auto) 54.9 Lymph % (Auto) 33.4 [place] % (Auto) 8.6 Eos % (Auto) 2.1 Baso % (Auto) 0.7 Absolute Neuts (auto) 5.0 Absolute Lymphs (auto) 3.02 Nucleated RBC % 0 Sodium 135 Potassium 3.8 Chloride 99 Carbon Dioxide 20.4 L Anion Gap 16 H BUN 9 Creatinine 0.79 Estim Creat Clear Calc 170.07 Est GFR (MDRD) Non-Af 109 BUN/Creatinine Ratio 11.9 Glucose 269 H Calcium 9.5 Total Bilirubin 0.29 AST 21 ALT 23 Alkaline Phosphatase 124 Total Protein 8.2 Albumin 4.0 Globulin 4.2 Albumin/Globulin Ratio 1.0 Urine Opiates Screen NEGATIVE U Buprenorphine Qual NEGATIVE Ur Oxycodone Screen NEGATIVE Urine Methadone Screen NEGATIVE Urine Fentanyl Screen NEGATIVE Ur Barbiturates Screen NEGATIVE Ur Phencyclidine Scrn NEGATIVE Ur Amphetamines Screen NEGATIVE U Benzodiazepines Scrn NEGATIVE Urine Cocaine Screen NEGATIVE U Cannabinoids Screen PRESUMPTIVE POSITIVE Ethyl Alcohol 225.0 H Discharge Plan Triage Chief Complaint: Substance Abuse ED Provider: Silver Wheatley Dx/Rx/DC Orders Clinical Impression: Alcohol abuse, Desire for detoxification, Acute alcohol intoxication, Hyperglycemia due to diabetes mellitus Primary Care Provider: Care Physician,No Primary Disposition Disposition: Acute Care [facility]
[2024-08-03 23:11] VITALS: BP 144/79; PULSE 70; RESP 18; TEMP 36.6; O2SAT 97
[2024-08-03 23:11] LABS: Absolute Lymphocyte Count 3.02 X10^3/uL (0.83-4.51); Basophil# 0.06 X10^3/uL; Basophil% 0.7 % (0-1); Eosinophil# 0.19 X10^3/uL; Eosinophils% 2.1 % (0-5); Hematocrit 47.1 % (40-54); Hemoglobin 16.4 g/dL (13.0-16.5); Lymphocyte # 3.02 X10^3/ul (0.83-4.51); Lymphocyte % 33.4 % (19-41); Mean Corp Hgb Conc 34.8 g/dL (32-36); Mean Corpuscular Hgb 31.2 pg (27.0-32.0); Mean Corpuscular Volume 89.5 fL (80-94); Mean Platelet Vol. 9.1 fl (6.2-12.0); Monocyte# 0.78 X10^3/uL; Monocyte% 8.6 % (0-10); NRBC Flagged by Analyzer 0 % (0-5); Neutrophil # 4.97 X10^3/uL (2.7-7.7); Neutrophil % 54.9 % (47-70); Platelet Count 254 K/mm3 (150-450); RBC Distribution Width CV 14.2 % (11.6-14.6); Red Blood Count 5.26 M/mm3 (4.6-6.2); White Blood Count 9.1 K/mm3 (4.4-11.0)
[2024-08-03 23:13] VITALS: BMI 42.4
[2024-08-03 23:16] LABS: Amphetamine Urine NEGATIVE (<1000 ng/mL); Barbiturate Urine NEGATIVE (< 200 ng/mL); Benzodiazepine Urine NEGATIVE (< 200 ng/mL); Buprenorphine Urine NEGATIVE (< 200 ng/mL); Cocaine Urine NEGATIVE (< 300 ng/mL); Fentanyl, Urine NEGATIVE; Methadone Urine NEGATIVE (< 300 ng/mL); Opiates Urine NEGATIVE (< 300 ng/mL); Oxycodone, Urine NEGATIVE (< 100 ng/mL); PCP Urine NEGATIVE (< 25 ng/mL); THC Urine PRESUMPTIVE POSITIVE (< 50 ng/mL)
[2024-08-03 23:29] LABS: AST(SGOT) 21 U/L (<=37); Alanine Aminotransfer ALT/SGPT 23 U/L (<=46); Alkaline Phosphatase 124 U/L (40-129); Anion Gap 16 (5-15); BUN 9 mg/dL (4-19); BUN/Creat Ratio 11.9 RATIO (10-20); Calcium,Total 9.5 mg/dL (7.6-11.0); Carbon Dioxide 20.4 mmol/L (21.0-32.0); Chloride 99 mmol/L (98-108); Creatinine, Serum 0.79 mg/dL (0.70-1.20); EST Glomerular Filtration Rate 109 (>60); Estimated Creatinine Clearance 170.07 ml/min (50-250); Globulin 4.2 g/dL (2.2-4.2); Glucose 269 mg/dL (70-99); Potassium 3.8 mmol/L (3.3-5.1); Protein, Total 8.2 g/dL (5.9-8.4); Sodium Level 135 mmol/L (133-145); Total Bilirubin 0.29 mg/dL (0.00-1.30)
[2024-08-04] VITALS (7 sets, daily range): BP systolic 131–167; BP diastolic 64–110; PULSE 66–79; RESP 15–16; TEMP 36.3–36.6; O2SAT 95–99; BMI 41.6
--- NOTE | 2024-08-04 00:47 | PCM.HP.STD ---
[facility] - General General Date of Admission: 08/03/24 Date of Service: 08/04/24 Chief Complaint: Wants EtOH Detox. [facility] Narrative SUKHWINDER MEYER, is a 48 M with a past medical history of essential hypertension; on carvedilol and lisinopril-hydrochlorothiazide, hyperlipidemia; on atorvastatin, tobacco abuse, morbid obesity; with BMI of 42.4 this admission, DM-2; of unknown control on empagliflozin, glipizide and metformin BID, diabetic neuropathy; on gabapentin TID, history of possible hypercoagulable state; on apixaban, history of asthma; on prn albuterol, allergic rhinitis; on cetirizine, RLS, depression with anxiety and PTSD; on fluoxetine, CTS; s/p release, OA; with DDD and chronic pain on meloxicam, homeless; living out of his vehicle, medical noncompliance and history or admission here from March 26, 2024 to March 29, 2024 for EtOH Detox and Chronic EtOH Abuse; with patient admitting to drinking ~7 pints of beer daily pluw Valmarc who presents to [facility] ER complaining of wanting help with EtOH detoxification. Mr. Meyer reports his symptoms began a few hours prior to admission when he decided he wanted help with EtOH detox after he had been drinking throughout the day. He went on to state he has not been taking his prescribed medications or checking his blood glucose. He denies hallucination, visual disturbances, seizures, tremors, recent illness, fever, chills, nausea, vomiting, diarrhea, constipation, abdominal pain, chest pain, palpitations, heart racing, LE edema, SOB, headache or rash. In the ER he was noted to have a BRADY of 225 mg/dL present on admission with a UDS positive for cannabinoids consistent with Acute EtOH Intoxication in the setting of Chronic EtOH Abuse with impeding EtOH withdrawal complicated by additional laboratory evidence of Hyperglycemia of 269 mg/dL present on admission due to Medical Noncompliance and he was then admitted to the general medical floor for ongoing care for a stay that is expected to extend beyond 2 midnights. [facility] Medical History Allergic rhinitis Asthma Anxiety and depression Chronic pain Kidney stones Restless legs Hypertension Tobacco use Alcohol abuse Degeneration of spine PTSD (post-traumatic stress disorder) Diabetes Home Medications ?Medication ?Instructions ?Recorded ?Last Taken ?Type albuterol sulfate 90 mcg/actuation 1 puff inhalation Q4H PRN PRN 11/10/23 Unknown History aerosol inhaler wheezing apixaban 5 mg tablet (Eliquis) 5 mg PO BID 11/10/23 Unknown History atorvastatin 10 mg tablet 10 mg PO DAILY 11/10/23 Unknown History carvedilol 25 mg tablet 12.5 mg PO BID 11/10/23 Unknown History cetirizine 10 mg tablet 10 mg PO DAILY 11/10/23 Unknown History fluoxetine 60 mg tablet 60 mg PO DAILY 11/10/23 Unknown History glipizide 2.5 mg tablet, extended 2.5 mg PO DAILY 11/10/23 Unknown History release 24 hr lisinopril 10 1 tab PO DAILY 11/10/23 Unknown History mg-hydrochlorothiazide 12.5 mg tablet meloxicam 15 mg tablet 15 mg PO DAILY 11/10/23 Unknown History metformin 1,000 mg tablet 1,000 mg PO BID 11/10/23 Unknown History empagliflozin 25 mg tablet 25 mg PO DAILY 03/26/24 Unknown History (Jardiance) gabapentin 300 mg capsule 300 mg PO TID 03/26/24 Unknown History Allergy/AdvReac Type Severity Reaction Status Date / Time trazodone (trazamine) AdvReac Mild Other Verified 08/03/24 22:22 Family History Mother Stomach cancer Father No problems noted. Surgical History History of carpal tunnel surgery Social History household members: none housing: other details: Living in his vehicle. Smoking Status: Current every day smoker tobacco type: cigarettes alcohol intake: current alcohol intake frequency: 3 or more drinks per day details: 4-pints beer daily. substance use type: does not use ROS ROS Narrative Review of Systems: Constitutional: Patient denies fever or chills. Eyes: Patient denies changes in vision or discharge from eyes. ENT: Patient denies runny nose, sore throat or ear pain. Resp: Patient denies SOB or cough. CV: Patient denies chest pain, palpitations, heart racing or LE edema. GI: Patient denies abdominal pain, nausea, vomiting, diarrhea or constipation. : Patient denies dysuria or hematuria. MSK: Patient admits to chronic pain. Skin: Patient denies rash, abscess, wounds or jaundice. Psych: Patient admits to depression and anxiety but he denies SI or HI. Allergy: Patient denies lip swelling, tongue swelling or urticaria. Hematology: Patient denies easy bleeding or easy bruisability. Endocrinology: Patient admits to polyuria and polydipsia but he denies polyphagia or heat/cold intolerance. 14 point ROS otherwise negative except for positives noted above in HPI. Vital Signs Vital Signs Vital Signs: 08/03/24 22:20 08/03/24 23:11 Temperature 98 F 97.9 F Temperature Source Oral Pulse Rate 85 70 Respiratory Rate 18 18 Blood Pressure 180/101 H 144/79 H Blood Pressure Mean 127 100 Pulse Ox 94 97 Oxygen Delivery Method Room Air Weight Weight: 321 lb 10.471 oz Body Mass Index (BMI) 42.4 Physical Exam Const alert, oriented x3, no apparent distress and average body habitus Constitutional Narrative: Patient intoxicated. General Appearance: cooperative HEENT normocephalic, head/scalp atraumatic, hearing grossly normal bilaterally and moist oral mucous membranes Eyes PERRL and EOMs intact bilaterally Neck no lymphadenopathy, supple and no JVD Resp normal respiratory effort, no retractions, no use of accessory muscles and clear to auscultation bilaterally Cardio regular rate and regular rhythm GI normal to inspection, nondistended, normoactive bowel sounds, soft to palpation, non-tender and non-distended GI Narrative: Obese. Extremity normal to inspection, full ROM and no clubbing, cyanosis or edema Skin Skin Narrative: Patient denies rash, abscess, wounds or jaundice. Neuro oriented x3, CN's II-XII intact bilaterally, moves all extremities and no focal motor deficits Sensorium / Orientation: awake, alert, oriented to person, oriented to place and oriented to time Speech: speech normal Psych Mood & Affect: depressed and anxious Results Medical Records Data Attestation: I reviewed the patient's medical records Lab / Micro Data Attestation: I reviewed the patient's lab results. 08/03/24 22:59 08/03/24 22:59 Labs: Laboratory Results - last 24 hr 08/03/24 22:43: Urine Opiates Screen NEGATIVE, U Buprenorphine Qual NEGATIVE, Ur Oxycodone Screen NEGATIVE, Urine Methadone Screen NEGATIVE, Urine Fentanyl Screen NEGATIVE, Ur Barbiturates Screen NEGATIVE, Ur Phencyclidine Scrn NEGATIVE, Ur Amphetamines Screen NEGATIVE, U Benzodiazepines Scrn NEGATIVE, Urine Cocaine Screen NEGATIVE, U Cannabinoids Screen PRESUMPTIVE POSITIVE 08/03/24 22:59: WBC 9.1, RBC 5.26, Hgb 16.4, Hct 47.1, MCV 89.5, MCH 31.2, MCHC 34.8, RDW Std Deviation 46.0 H, RDW Coeff of Rachel 14.2, Plt Count 254, MPV 9.1, Immature Gran % (Auto) 0.300, Neut % (Auto) 54.9, Lymph % (Auto) 33.4, [place] % (Auto) 8.6, Eos % (Auto) 2.1, Baso % (Auto) 0.7, Absolute Neuts (auto) 5.0, Absolute Lymphs (auto) 3.02, Nucleated RBC % 0, Sodium 135, Potassium 3.8, Chloride 99, Carbon Dioxide 20.4 L, Anion Gap 16 H, BUN 9, Creatinine 0.79, Estim Creat Clear Calc 170.07, Est GFR (MDRD) Non-Af 109, BUN/Creatinine Ratio 11.9, Glucose 269 H, Calcium 9.5, Total Bilirubin 0.29, AST 21, ALT 23, Alkaline Phosphatase 124, Total Protein 8.2, Albumin 4.0, Globulin 4.2, Albumin/Globulin Ratio 1.0, Ethyl Alcohol 225.0 H Assessment & Plan Assessment/Plan (1) Acute alcohol intoxication: QUALIFIERS: Complication of substance-induced condition: uncomplicated Qualified Code(s): F10.920 - Alcohol use, unspecified with intoxication, uncomplicated (2) Alcohol abuse: (3) Desire for detoxification: (4) Cannabis abuse: (5) Diabetes mellitus, type 2: QUALIFIERS: Diabetes mellitus halfway insulin use: without halfway use Diabetes mellitus complication status: without complication Qualified Code(s): E11.9 - Type 2 diabetes mellitus without complications (6) Medical non-compliance: (7) Tobacco abuse: (8) Homeless single person: (9) Morbid obesity with BMI of 40.0-44.9, adult: PLAN: Plan 1. Acute EtOH Intoxication in the setting of Chronic EtOH Abuse with impeding EtOH withdrawal with BRADY of 225 mg/dL present on admission - Admit to general medical floor for treatment under the EtOH detoxification protocol primarily consisting of phenobarbital taper. Give ibuprofen prn for pain or fever. Give ondansetron prn for nausea and vomiting. Finally, we will consult Case Management to help this patient connect with the [facility] program with help appreciated in advance. 2. UDS positive for cannabinoids complicating #1 - Cannabis Cessation will be strongly encouraged. 3. DM-2; uncontrolled with Hyperglycemia of 269 mg/dL present on admission due to Medical Noncompliance compounding #1 & #2 - ADA diet. FSBS q. AC/HS plus SSI. Check HgbA1c to objectively assess quality of diabetic control. 4. Tobacco Abuse adding to the medical complexity of #1 - #3 - Tobacco Cessation will be strongly encouraged with Nicotine patch offered to control cravings. 5. Homeless; with patient living out of his vehicle exacerbating #1 - #4 - Case Management will be asked to help this patient find stable [place] [facility] facility with help appreciated in advance. 6. Morbid Obesity; with BMI of 42.4 this admission adding to the burden of disease outlined from #1 - #5 - Weight loss will be recommended. Check TSH. This complicates his case and may hamper recovery. 7. History or admission here from March 26, 2024 to March 29, 2024 for EtOH Detox and Chronic EtOH Abuse; with patient admitting to drinking ~7 pints of beer daily plus whiskey adding to the medical complexity of #1 - #6 - Noted with unfortunate evolving pattern of serial readmission. 8. Essential hypertension; on carvedilol and lisinopril-hydrochlorothiazide - Restart carvedilol now and consider restarting lisinopril-hydrochlorothiazide if blood pressure remains elevated. 9. Hyperlipidemia; on atorvastatin - Restart statin if patient is amenable. 10. Diabetic neuropathy; on gabapentin TID - Continue gabapentin as previously prescribed. 11. History of possible hypercoagulable state; on apixaban - Noted. Hold apixaban unless hypercoagulable state has been confirmed. 12. History of asthma; on prn albuterol - Stable with no evidence of flare at this time. Maintain prn albuterol. 13. Allergic rhinitis; on cetirizine - Present regimen to continue. 14. RLS - Stable. 15. Depression with anxiety and PTSD; on fluoxetine - Hold fluoxetine until patient achieves sobriety. 16. CTS; s/p release - Noted. 17. OA; with DDD and chronic pain on meloxicam - We will give ibuprofen prn for pain or fever. 18. DVT prophylaxis - Lovenox 40 mg sq daily. Total time: Approximately (but not less than) 75 minutes. Charges/Coding Visit Charges Inpatient E&M: 14478 Init Hosp L3
[2024-08-04 01:53] LABS: Magnesium 2.2 mg/dL (1.5-2.2)
[2024-08-04] MEDS: Phenobarbital 32.4 MG Tablet 64.8 MG PO ×6 (02:40→21:43)
[2024-08-04] MEDS: 0.9% Normal Saline (1000mL) 1,000 ML 150 ML IV ×2 (02:41→16:45)
--- NOTE | 2024-08-04 03:55 | NURSING ---
Patient said his home meds were in his walker. [The walker has a compartment under the seat.] This RN opened the compartment. There was two Q tips and a couple coins. Primary nurse, Tegan Miramontes RN, also verified that there were no meds in the walker compartment. Patient was sleeping. Not awakened at this time.
[2024-08-04 05:09] LABS: Absolute Lymphocyte Count 2.83 X10^3/uL (0.83-4.51); Absolute Neutrophil Count 2.7 X10^3/uL (2.0-7.7); Basophil# 0.04 X10^3/uL; Basophil% 0.6 % (0-1); Eosinophils% 3.1 % (0-5); Hematocrit 43.9 % (40-54); Lymphocyte # 2.83 X10^3/ul (0.83-4.51); Lymphocyte % 44.4 % (19-41); Mean Corp Hgb Conc 34.2 g/dL (32-36); Mean Corpuscular Hgb 31.1 pg (27.0-32.0); Mean Corpuscular Volume 90.9 fL (80-94); Mean Platelet Vol. 9.5 fl (6.2-12.0); Monocyte# 0.55 X10^3/uL; Monocyte% 8.6 % (0-10); NRBC Flagged by Analyzer 0 % (0-5); Neutrophil # 2.73 X10^3/uL (2.7-7.7); Neutrophil % 42.8 % (47-70); Platelet Count 232 K/mm3 (150-450); RBC Distribution Width CV 14.3 % (11.6-14.6); Red Blood Count 4.83 M/mm3 (4.6-6.2); White Blood Count 6.4 K/mm3 (4.4-11.0)
[2024-08-04 05:35] LABS: Prothrombin Time (Protime)PT. 13.2 SECONDS (11.7-14.9)
[2024-08-04] MEDS: Gabapentin 300 MG Capsule PO ×3 (06:05→21:41)
[2024-08-04] MEDS: Enoxaparin 40 MG/0.4 ML Syringe SC (06:05)
[2024-08-04] MEDS: Insulin Lispro 100 UNIT/ML INSULN.PEN SC ×4 (06:18→21:40)
[2024-08-04 06:28] LABS: Bedside Glucose 263 mg/dL (74-106)
[2024-08-04 06:30] LABS: Thyroid Stim Hormone (TSH) 0.838 uIU/mL (0.300-4.200)
[2024-08-04 06:31] LABS: ALB/GLOB Ratio 0.9 RATIO (0.9-2.4); AST(SGOT) 42 U/L (<=37); Alanine Aminotransfer ALT/SGPT 40 U/L (<=46); Albumin, Serum 3.5 g/dL (3.5-5.0); Alkaline Phosphatase 104 U/L (40-129); Anion Gap 18 (5-15); BUN 8 mg/dL (4-19); BUN/Creat Ratio 10.1 RATIO (10-20); Carbon Dioxide 18.7 mmol/L (21.0-32.0); Chloride 103 mmol/L (98-108); Cholesterol 124 mg/dL (<=200); Creatinine, Serum 0.74 mg/dL (0.70-1.20); EST Glomerular Filtration Rate 111 (>60); Estimated Creatinine Clearance 179.71 ml/min (50-250); Globulin 3.7 g/dL (2.2-4.2); Glucose 252 mg/dL (70-99); High Density Lipoprotein 25 mg/dL; Low Density Lipoprotein Calc. 60 mg/dL; Phosphorus 3.8 mg/dL (2.7-4.5); Potassium 3.6 mmol/L (3.3-5.1); Protein, Total 7.1 g/dL (5.9-8.4); Sodium Level 139 mmol/L (133-145); Total Bilirubin 0.25 mg/dL (0.00-1.30); Triglycerides 192 mg/dL; Very Low Density Lipoprotein 38 mg/dL (5-40); cholesterol:hdl ratio screen 4.88
[2024-08-04 07:11] LABS: Hemoglobin A1c 10.9 % (<=5.6)
[2024-08-04] MEDS: Thiamine Hydrochloride 100 MG Tablet PO (09:43)
[2024-08-04] MEDS: Folic Acid 1 MG Tablet PO (09:44)
[2024-08-04] MEDS: Loratadine 10 MG Tablet PO (09:45)
[2024-08-04] MEDS: Carvedilol 12.5 MG Tablet PO ×2 (09:46→21:41)
[2024-08-04] MEDS: hydrOXYzine PAM 25 MG Capsule 50 MG PO ×3 (09:53→19:04)
[2024-08-04 12:18] LABS: Bedside Glucose 298 mg/dL (74-106)
--- NOTE | 2024-08-04 12:50 | ADDICTION ---
This process description writer met with PT to conduct ASAM, MSE, AUDIT, DUDIT assessments and to plan for d/c. PT A+Ox4 and participated actively. All assessments completed and placed in PT's chart. PT plans to f/u with [facility] for follow-up in patient treatment services on if approved. [facility] will transport to treatment.
--- NOTE | 2024-08-04 13:34 | CASEMGMT ---
Social Work SW met with pt to complete SDOH assessment. Pt is currently homeless, pt not disclosing how long he has been homeless. Pt stating he had been staying with his girlfriend but she kicked him out yesterday. Pt attempted to call shelters but there were no vacancies. Pt did meet with Marina, addiction therapist who is assisting pt in finding residential treatment. SW provided pt with resources for housing, shelters, transportation and [employer] card. Pt appreciative of information and denies further needs. LEE Olivares
--- NOTE | 2024-08-04 13:51 | PCM.PN.HOSP ---
Reason for Visit Reason for Visit: Diagnoses Type 2 diabetes mellitus without complications (08/04/24) Morbid (severe) obesity due to excess calories (08/04/24) Alcohol abuse, uncomplicated (08/04/24) Alcohol use, unspecified with intoxication, uncomplicated (08/04/24) Cannabis abuse, uncomplicated (08/04/24) Homelessness unspecified (08/04/24) Body mass index [BMI] 40.0-44.9, adult (08/04/24) Tobacco use (08/04/24) Patient's noncompliance with other medical treatment and regimen due to unspecified reason (08/04/24) Subjective Subjective Patient was seen and examined today, he does not appear to be anxious or agitated. Objective Data Objective Data Vital Signs: Vital Signs Temp Pulse Resp BP Pulse Ox O2 Del Method 97.5 F L 79 16 167/110 H 99 Room Air 08/04/24 10:00 08/04/24 10:00 08/04/24 10:00 08/04/24 10:00 08/04/24 10:00 08/04/24 10:00 Oxygen Delivery Method Room Air Weight: 143.2 kg Body Mass Index (BMI) 41.6 Intake & Output: Intake and Output for Last 24 Hours 08/02/24 08/03/24 08/04/24 23:59 23:59 23:59 Intake Total 200 / 200 Balance 200 / 200 Lab / Micro Data 08/04/24 04:45 08/04/24 04:45 Labs: Laboratory Results - last 24 hr 08/03/24 22:43: Urine Opiates Screen NEGATIVE, U Buprenorphine Qual NEGATIVE, Ur Oxycodone Screen NEGATIVE, Urine Methadone Screen NEGATIVE, Urine Fentanyl Screen NEGATIVE, Ur Barbiturates Screen NEGATIVE, Ur Phencyclidine Scrn NEGATIVE, Ur Amphetamines Screen NEGATIVE, U Benzodiazepines Scrn NEGATIVE, Urine Cocaine Screen NEGATIVE, U Cannabinoids Screen PRESUMPTIVE POSITIVE 08/03/24 22:59: WBC 9.1, RBC 5.26, Hgb 16.4, Hct 47.1, MCV 89.5, MCH 31.2, MCHC 34.8, RDW Std Deviation 46.0 H, RDW Coeff of Rachel 14.2, Plt Count 254, MPV 9.1, Immature Gran % (Auto) 0.300, Neut % (Auto) 54.9, Lymph % (Auto) 33.4, [place] % (Auto) 8.6, Eos % (Auto) 2.1, Baso % (Auto) 0.7, Absolute Neuts (auto) 5.0, Absolute Lymphs (auto) 3.02, Nucleated RBC % 0, Sodium 135, Potassium 3.8, Chloride 99, Carbon Dioxide 20.4 L, Anion Gap 16 H, BUN 9, Creatinine 0.79, Estim Creat Clear Calc 170.07, Est GFR (MDRD) Non-Af 109, BUN/Creatinine Ratio 11.9, Glucose 269 H, Calcium 9.5, Magnesium 2.2, Total Bilirubin 0.29, AST 21, ALT 23, Alkaline Phosphatase 124, Total Protein 8.2, Albumin 4.0, Globulin 4.2, Albumin/Globulin Ratio 1.0, Ethyl Alcohol 225.0 H 08/04/24 04:45: WBC 6.4, RBC 4.83, Hgb 15.0, Hct 43.9, MCV 90.9, MCH 31.1, MCHC 34.2, RDW Std Deviation 47.0 H, RDW Coeff of Rachel 14.3, Plt Count 232, MPV 9.5, Immature Gran % (Auto) 0.500, Neut % (Auto) 42.8 L, Lymph % (Auto) 44.4 H, [place] % (Auto) 8.6, Eos % (Auto) 3.1, Baso % (Auto) 0.6, Absolute Neuts (auto) 2.7, Absolute Lymphs (auto) 2.83, Nucleated RBC % 0, PT 13.2, INR 1.0, Sodium 139, Potassium 3.6, Chloride 103, Carbon Dioxide 18.7 L, Anion Gap 18 H, BUN 8, Creatinine 0.74, Estim Creat Clear Calc 179.71, Est GFR (MDRD) Non-Af 111, BUN/Creatinine Ratio 10.1, Glucose 252 H, Hemoglobin A1c 10.9 H, Calcium 9.0, Phosphorus 3.8, Total Bilirubin 0.25, AST 42 H, ALT 40, Alkaline Phosphatase 104, Total Protein 7.1, Albumin 3.5, Globulin 3.7, Albumin/Globulin Ratio 0.9, Triglycerides 192, Cholesterol 124, LDL Cholesterol, Calc 60, VLDL Cholesterol 38, HDL Cholesterol 25 L, Cholesterol/HDL Ratio 4.88, TSH 0.838 05/21/25 06:09: POC Glucose 263 H 08/04/24 08:07: Ethyl Alcohol 38.0 H 08/04/24 11:35: POC Glucose 298 H Social Homelessness:: Unsheltered Physical Exam Const alert, oriented x3, no apparent distress and healthy appearing Constitutional Narrative: Patient has class III obesity General Appearance: cooperative, well kempt and well developed Orientation / Consciousness: awake, oriented to person, oriented to place and oriented to time HEENT normocephalic, head/scalp atraumatic and moist oral mucous membranes Eyes PERRL, EOMs intact bilaterally and conjunctivae normal Neck supple, no JVD, thyroid normal and no carotid bruits General: trachea midline Resp normal respiratory effort, no retractions, no use of accessory muscles and clear to auscultation bilaterally Auscultation: Negative for rales, rhonchi or wheezes Cardio regular rate, regular rhythm, S1 normal heart sound, S2 normal heart sound, no murmurs, no rub and no gallops GI normal to inspection, nondistended, normoactive bowel sounds, soft to palpation, non-tender and non-distended Extremity no clubbing, cyanosis or edema Skin no rashes or lesions noted General Skin Exam: no breakdown Neuro oriented x3, CN's II-XII intact bilaterally, moves all extremities, no focal motor deficits and no sensory deficits noted Sensorium / Orientation: awake and alert Speech: speech normal Psych affect normal Assessment & Plan Assessment/Plan (1) Desire for detoxification: PLAN: Plan 1. Acute alcohol detox-continue with present medications, I talked with addiction social media job titles about perhaps finding a place for the patient to go for a longer stay and outpatient detox, she will be working on this. #2 type 2 diabetes-blood sugars will be monitored, sliding scale insulin was ordered per fingerstick blood sugars #3 class III obesity-complicates care, management, recovery, and prognosis #4 essential hypertension-I will place the patient back on lisinopril and hydrochlorothiazide at this time, he is also on Coreg #5 homelessness-complicates care, management, recovery, and prognosis Total clinical time spent by myself addressing patient's medical issues, reviewing all of his data, and collaborating with the patient's care team: 35 minutes Charges/Coding Visit Charges Inpatient E&M: 61891 Subs Hosp L2
[2024-08-04] MEDS: hydroCHLOROthiazide 12.5mg 12.5 MG PO (14:18)
[2024-08-04] MEDS: Lisinopril 20 MG Tablet PO (14:18)
[2024-08-04 16:38] LABS: Bedside Glucose 299 mg/dL (74-106)
[2024-08-04] MEDS: Atorvastatin Calcium 10 MG Tablet PO (21:41)
[2024-08-04 21:59] LABS: Bedside Glucose 291 mg/dL (74-106)
[2024-08-05] MEDS: hydrOXYzine PAM 25 MG Capsule 50 MG PO ×4 (02:05→17:35)
[2024-08-05] MEDS: Phenobarbital 32.4 MG Tablet 64.8 MG PO ×5 (02:05→17:35)
[2024-08-05 02:46] VITALS: BP 143/87; PULSE 71; RESP 16; TEMP 36.6; O2SAT 96
[2024-08-05 03:50] VITALS: BMI 41.6
[2024-08-05] MEDS: Enoxaparin 40 MG/0.4 ML Syringe SC (05:50)
[2024-08-05] MEDS: Gabapentin 300 MG Capsule PO ×2 (05:51→13:14)
[2024-08-05] MEDS: Insulin Lispro 100 UNIT/ML INSULN.PEN SC ×3 (05:56→17:31)
[2024-08-05 06:15] LABS: Bedside Glucose 308 mg/dL (74-106)
[2024-08-05 08:30] VITALS: BP 151/83; PULSE 74; RESP 16; TEMP 36.4; O2SAT 99
[2024-08-05] MEDS: Folic Acid 1 MG Tablet PO (08:43)
[2024-08-05] MEDS: Thiamine Hydrochloride 100 MG Tablet PO (08:43)
[2024-08-05] MEDS: Loratadine 10 MG Tablet PO (09:16)
[2024-08-05] MEDS: hydroCHLOROthiazide 12.5mg 12.5 MG PO (09:16)
[2024-08-05] MEDS: Carvedilol 12.5 MG Tablet PO (09:16)
[2024-08-05] MEDS: Lisinopril 20 MG Tablet PO (09:17)
--- NOTE | 2024-08-05 09:42 | PCM.PN.HOSP ---
Reason for Visit Reason for Visit: Diagnoses Type 2 diabetes mellitus without complications (08/04/24) Morbid (severe) obesity due to excess calories (08/04/24) Alcohol abuse, uncomplicated (08/04/24) Alcohol use, unspecified with intoxication, uncomplicated (08/04/24) Cannabis abuse, uncomplicated (08/04/24) Homelessness unspecified (08/04/24) Body mass index [BMI] 40.0-44.9, adult (08/04/24) Tobacco use (08/04/24) Patient's noncompliance with other medical treatment and regimen due to unspecified reason (08/04/24) Subjective Subjective Patient was seen and examined today, he does not complain of any anxiety or nervousness. There is no evidence of DTs. Objective Data Objective Data Vital Signs: Vital Signs Temp Pulse Resp BP Pulse Ox O2 Del Method 97.9 F 71 16 143/87 H 96 Room Air 08/05/24 02:46 08/05/24 02:46 08/05/24 02:46 08/05/24 02:46 08/05/24 02:46 08/05/24 02:46 Oxygen Delivery Method Room Air Weight: 143.3 kg Body Mass Index (BMI) 41.6 Intake & Output: Intake and Output for Last 24 Hours 08/03/24 08/04/24 08/05/24 23:59 23:59 23:59 Intake Total 3200 / 3200 850 / 850 Output Total 2500 / 2500 1000 / 1000 Balance 700 / 700 -150 / -150 Lab / Micro Data 08/04/24 04:45 08/04/24 04:45 Labs: Laboratory Results - last 24 hr 08/04/24 08:07: Ethyl Alcohol 38.0 H 08/04/24 11:35: POC Glucose 298 H 08/04/24 16:19: POC Glucose 299 H 08/04/24 21:40: POC Glucose 291 H 08/05/24 05:55: POC Glucose 308 H Social Homelessness:: Unsheltered Physical Exam Const alert, oriented x3, no apparent distress and healthy appearing Constitutional Narrative: Patient has class III obesity General Appearance: cooperative, well kempt and well developed Orientation / Consciousness: awake, oriented to person, oriented to place and oriented to time HEENT normocephalic and moist oral mucous membranes Eyes PERRL, EOMs intact bilaterally and conjunctivae normal Neck supple, no JVD, thyroid normal and no carotid bruits General: trachea midline Resp normal respiratory effort and clear to auscultation bilaterally Auscultation: Negative for rales, rhonchi or wheezes Cardio regular rate, regular rhythm, no murmurs, no rub and no gallops GI normal to inspection, nondistended, normoactive bowel sounds, soft to palpation, non-tender and non-distended Extremity no clubbing, cyanosis or edema Skin no rashes or lesions noted General Skin Exam: no breakdown Neuro oriented x3, CN's II-XII intact bilaterally, no focal motor deficits and no sensory deficits noted Sensorium / Orientation: awake and alert Speech: speech normal Psych affect normal Assessment & Plan Assessment/Plan (1) Alcohol abuse: (2) Desire for detoxification: PLAN: Plan 1. Acute alcohol detox-continue with present medications, I talked with addiction health and social care teacher about perhaps finding a place for the patient to go for a longer stay and outpatient detox, she will be working on this. #2 type 2 diabetes-blood sugars will be monitored, sliding scale insulin was ordered per fingerstick blood sugars, patient's blood sugars have been on the high side, I have elected to place the patient on oral medications at this time-Amaryl and metformin and continue to monitor blood sugars. #3 class III obesity-complicates care, management, recovery, and prognosis #4 essential hypertension-I will place the patient back on lisinopril and hydrochlorothiazide at this time, he is also on Coreg #5 homelessness-complicates care, management, recovery, and prognosis Total clinical time spent by myself addressing patient's medical issues, reviewing all of his data, and collaborating with the patient's care team: 35 minutes Charges/Coding Visit Charges Inpatient E&M: 37618 Subs Hosp L2
[2024-08-05 10:00] VITALS: BP 151/83; PULSE 74; RESP 16; TEMP 36.4; O2SAT 99
[2024-08-05 12:05] LABS: Bedside Glucose 297 mg/dL (74-106)
[2024-08-05] MEDS: Glimepiride 4 MG Tablet PO (13:14)
[2024-08-05 14:00] VITALS: BP 142/79; PULSE 76; RESP 16; TEMP 36.6; O2SAT 99
--- NOTE | 2024-08-05 15:40 | CHAPLAIN ---
Type of Pastoral Visit _x__ Initial Visit ___ Follow-up Visit ___ On-call Visit ___ General Patient Visit ___ Spiritual Assessment ___ Family Conference ___ Bereavement ___ Rapid Response ___ Code Blue ___ Other (describe below) Pastoral Care Referral From _x__ Patient ___ Family ___ Nurse ___ Physician ___ Batter Depositor ___ Substance Abuse Clinician ___ Other (describe below) Sacrament/Intervention _x__ Active listening ___ Anointing ___ Sabianism ___ Bereavement ___ Communion ___ Maria Dolores exploration ___ ___ Life review ___ Prayer ___ Reconciliation ___ Sacrament of Sick _x__ Supportive presence ___ Wedding ___ Other (describe below) Pastoral Comments patient is sitting up in bed and the door is open; offer of presence given to this patient who had been seen previously in a past admission; pt says that he is trying to get his life together but is discouraged and upset now because he can't see people while in the [facility] program; pt says I really don't feel like talking right now because I'm upset, but I thank you for stopping and asking about me;
--- NOTE | 2024-08-05 16:39 | NURSING ---
talked with Millicent CHRISTIE navigator who was requesting clarification on pt's intent for discharge to inpatient facility as pt told the [facility] conditioning coach he had talked with significant other and she was willing to take him back so he wouldn't go inpatient. This nurse in to talk with patient. Pt admitted to having a visitor earlier today, at first identifying her as his significant other then identifying her as a friend whom was helping his sister with his disability/medicaid paperwork. Pt verbalized indecision if he was willing to go inpatient [facility] stating he was aware he was not accepted by [address] [place] [address] and that he was screened, talked with and accepted by [facility]. Pt verbalized he didn't know if going to [place] was best for his sister and significant other, discussed the importance of doing what was in the best of him and his recovery. pt requested that we have someone [facility] talk with him again so he could get more information from them to see if they will be able to handle his physical needs. Millicent updated on pt's request.
[2024-08-05] MEDS: metFORMIN HCl 500 MG Tablet PO (17:32)
[2024-08-05 17:57] LABS: Bedside Glucose 241 mg/dL (74-106)
--- NOTE | 2024-08-05 18:30 | NURSING ---
Addendum entered by Jane Williamson 08/05/24 18:42: discussed with patient again process involving discharge if was going to inpatient facility regarding being able to have belongings/phone and make phone calls prior to pickup after received discharge order. pt again states he just wants discharged home to S.O. and will make decision on inpatient in a couple days. States if he knew tonight he could leave and be able to make his plans. Pt states he doesn't want information given to his S.O. Huey, he wants to be the one to talk to her. Updated patient this nurse will let Dr. Witt aware of his decision. Original Note: received phone call again from [facility] Ping as she stated when she attempted to call prior pt refused phone call stating he needed to make other make another first. following phone call pt states he has made the decision to go home first for a day or two then make a phone call to [facility]. the nurse stayed with patient during screening. 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 after phone call with Ping pt was able to provide this nurse with [place] [facility] phone number as [phone].
--- NOTE | 2024-08-05 18:53 | NURSING ---
Dr. Witt updated, pt updated of physician's response if wants to leave tonight would be AMA. Pt states would like to sign out AMA- primary RN and Dr. Witt updated.
--- NOTE | 2024-08-06 16:01 | DS.PCM_ITS ---
Providers Date of Admission: 08/04/24 Date of Discharge: 08/05/24 Primary Care Physician: No Primary Care Phys Reason For Visit: ACUTE ETOH INTOXICATION IN THE SETTING OF Diagnosis Discharge Diagnosis (1) Alcohol abuse: Status: Acute Code(s): F10.10 - Alcohol abuse, uncomplicated (2) Desire for detoxification: Status: Acute Plan 1. Acute alcohol detox-continue with present medications, I talked with addiction director social welfare about perhaps finding a place for the patient to go for a longer stay and outpatient detox, she will be working on this. #2 type 2 diabetes-blood sugars will be monitored, sliding scale insulin was ordered per fingerstick blood sugars, patient's blood sugars have been on the high side, I have elected to place the patient on oral medications at this time- Amaryl and metformin and continue to monitor blood sugars. #3 class III obesity-complicates care, management, recovery, and prognosis #4 essential hypertension-I will place the patient back on lisinopril and hydrochlorothiazide at this time, he is also on Coreg #5 homelessness-complicates care, management, recovery, and prognosis Total clinical time spent by myself addressing patient's medical issues, reviewing all of his data, and collaborating with the patient's care team: 35 minutes Medications at Discharge Home Medications albuterol sulfate 90 mcg/actuation aerosol inhaler 1 puff inhalation Q4H PRN PRN wheezing 11/10/23 apixaban 5 mg tablet (Eliquis) 5 mg PO BID 11/10/23 atorvastatin 10 mg tablet 10 mg PO DAILY 11/10/23 carvedilol 25 mg tablet 12.5 mg PO BID 11/10/23 cetirizine 10 mg tablet 10 mg PO DAILY 11/10/23 fluoxetine 60 mg tablet 60 mg PO DAILY 11/10/23 glipizide 2.5 mg tablet, extended release 24 hr 2.5 mg PO DAILY 11/10/23 lisinopril 10 mg-hydrochlorothiazide 12.5 mg tablet 1 tab PO DAILY 11/10/23 meloxicam 15 mg tablet 15 mg PO DAILY 11/10/23 metformin 1,000 mg tablet 1,000 mg PO BID 11/10/23 empagliflozin 25 mg tablet (Jardiance) 25 mg PO DAILY 03/26/24 gabapentin 300 mg capsule 300 mg PO TID 01/10/25 Hospital Course Operations None Procedures None Summary of Care Provided Minutes Spent on Discharge: 31 Hospital Course: This 48-year-old white male was seen in the emergency room at [facility] requesting services for alcohol detox. Patient was admitted to [place] [address] and orders were entered using the alcohol detox order set, he was seen in consultation by addiction director social welfare. Plans were made for the patient to go to an inpatient detox center, at the last minute on 08/05/2024, patient decided to go home instead, he signed out AMA. Patient was seen in the morning by myself: On examination he appeared in good health and spirits. Vital signs as documented. Skin warm and dry and without overt rashes. Neck without JVD, neck was supple, trachea midline, thyroid was normal. Lungs clear bilaterally, normal air movement was noted. Heart exam notable for regular rhythm, normal sounds and absence of murmurs, rubs or gallops. Abdomen unremarkable and without evidence of organomegaly, masses, or abdominal aortic enlargement. Bowel sounds are present, abdomen is not distended. Extremities nonedematous, no cyanosis was noted, no clubbing was noted. Neuro: Cranial nerves II through XII are grossly intact, no focal motor deficits were noted, sensation to light touch and pinprick intact, motor exam 5/5 throughout. Psych: Patient is alert and oriented x3, he does not appear anxious or depressed, he does not appear agitated. Patient was discharged AMA. Medical Records Data Homelessness:: Unsheltered Weight / BMI Weight Weight: 143.3 kg Body Mass Index (BMI) 41.6 ABG / Lab / Microbiology Data 08/04/24 04:45 08/04/24 04:45 Laboratory: Laboratory Results - last 24 hr 08/05/24 17:30: POC Glucose 241 H D/C Instructions DC O2, CPAP, BIPAP Needs Home O2 Discharge instructions: No DC home with Oxygen: No Meaningful Use Info Meaningful Use Meaningful Use Diagnoses (Choose all that apply): None applicable Ischemic Stroke Statin Dosing Therapy Reference: STATIN DOSE THERAPY REFERENCE: * Patients > 75 years receive moderate or high dose statin therapy. * Patients 75 years or YOUNGER should receive HIGH intensity statin dose unless contraindicated. You will be required to document reason for non-treatment if statin daily dose does not meet guidelines. HIGH DOSE STATIN THERAPY DAILY Atorvastatin > than or = to 40 mg Rosuvastatin > than or = to 20 mg Amlodipine + Atorvastatin > than or = to 2.5/40 mg Ezetimibe + Simvastatin 10/80 mg Simvastatin 80mg Discharge Plan Admission Admit Date/Time: 08/04/24 01:28 Attending Provider: Ronnie Witt Primary Care Provider: Care Physician,No Primary Consulting Providers: Jesse Hernandez Discharge Orders/Prescriptions Prescriptions: No Action Jardiance 25 mg tablet 25 mg PO DAILY gabapentin 300 mg capsule 300 mg PO TID carvedilol 25 mg tablet 12.5 mg PO BID cetirizine 10 mg tablet 10 mg PO DAILY atorvastatin 10 mg tablet 10 mg PO DAILY meloxicam 15 mg tablet 15 mg PO DAILY glipizide 2.5 mg tablet extended release 24hr 2.5 mg PO DAILY metformin 1,000 mg tablet 1,000 mg PO BID lisinopril-hydrochlorothiazide 10-12.5 mg tablet 1 tab PO DAILY albuterol sulfate 90 mcg/actuation HFA aerosol inhaler 1 puff inhalation Q4H PRN PRN (Reason: wheezing) fluoxetine 60 mg tablet 60 mg PO DAILY Eliquis 5 mg tablet 5 mg PO BID Referrals / Follow Up: Care Physician,No Primary [Primary Care Provider] - DAVID ARGUETA CRNP [Non-Staff] - Disposition Disposition (needs filled in before D/C Order can be placed): Against Medical Advice Charges/Coding Visit Charges Inpatient E&M: 50502 Disch Hosp >30min
== END 2024-08-05 19:23 | disposition left against medical advice (07) | DRG 770 ==
LOC: ED 23:07 → MS3 23:35
PROVIDERS: Admitting Provider Internal Medicine; Emergency Provider Emergency Medicine; Visit Provider Internal Medicine
DX: F10.239 Alcohol dependence with withdrawal, unspecified (principal); Z59.02 Unsheltered homelessness; E66.813 Obesity, class 3; E11.65 Type 2 diabetes mellitus with hyperglycemia; J45.909 Unspecified asthma, uncomplicated; I10 Essential (primary) hypertension; F12.10 Cannabis abuse, uncomplicated; G25.81 Restless legs syndrome; E11.40 Type 2 diabetes mellitus with diabetic neuropathy, unspecified; F41.8 Other specified anxiety disorders; F17.210 Nicotine dependence, cigarettes, uncomplicated; E78.5 Hyperlipidemia, unspecified; Z68.41 Body mass index [BMI] 40.0-44.9, adult; M19.90 Unspecified osteoarthritis, unspecified site; F43.10 Post-traumatic stress disorder, unspecified; G89.29 Other chronic pain; Z53.29 Procedure and treatment not carried out because of patient's decision for other reasons; Z79.84 Long term (current) use of oral hypoglycemic drugs; Z79.899 Other long term (current) drug therapy; Z91.199 Patient's noncompliance with other medical treatment and regimen due to unspecified reason; Z79.01 Long term (current) use of anticoagulants; Z87.898 Personal history of other specified conditions
CPT/HCPCS: 36415; 80053; 80061; 80307; 82077; 82962; 83036; 83735; 84100; 84443; 85025; 85610; 94668; 99283

== ENCOUNTER 2024-09-06 17:25 | Emergency (ER) | payer MEDICAID, SELFPAY ==
[2024-09-06 17:25] VITALS: BP 152/92; PULSE 83; RESP 14; TEMP 36.1; O2SAT 98
--- NOTE | 2024-09-06 19:15 | EDS_ITS ---
HPI History of Present Illness Chief Complaint: Wound Narrative Narrative: 48-year-old male past medical history of diabetes and diabetic neuropathy of his bilateral feet presents with bleeding from his feet that began today. He was at the public pool, came out of the water, and was walking to the administrative assistant front desk when it was noticed that he had bleeding from his bilateral feet. He states he was unsure if he stepped on anything like a piece of plastic or glass. No recent fevers or chills, no nausea or vomiting, no other symptoms. [facility] Medical History Morbid obesity with BMI of 40.0-44.9, adult Homeless single person Tobacco abuse Medical non-compliance Diabetes mellitus, type 2 Cannabis abuse Acute alcohol intoxication Desire for detoxification Alcohol abuse Allergic rhinitis Asthma Anxiety and depression Chronic pain Kidney stones Restless legs Hypertension Tobacco use Alcohol abuse Degeneration of spine PTSD (post-traumatic stress disorder) Diabetes Home Medications ?Medication ?Instructions ?Recorded ?Last Taken ?Type albuterol sulfate 90 mcg/actuation 1 puff inhalation Q 4H PRN PRN 11/10/23 Unknown History aerosol inhaler wheezing apixaban 5 mg tablet (Eliquis) 5 mg PO BID 11/10/23 Un known History atorvastatin 10 mg tablet 10 mg PO DAILY 11/10/23 Unkn own History carvedilol 25 mg tablet 12.5 mg PO BID 11/10/23 Unkn own History cetirizine 10 mg tablet 10 mg PO DAILY 11/10/23 Unkn own History fluoxetine 60 mg tablet 60 mg PO DAILY 11/10/23 Unkn own History glipizide 2.5 mg tablet, extended 2.5 mg PO DAILY 10/16 09/07 Unknown History release 24 hr lisinopril 10 1 tab PO DAILY 11/10/23 Unkn own History mg-hydrochlorothiazide 12.5 mg tablet meloxicam 15 mg tablet 15 mg PO DAILY 11/10/23 Unkn own History metformin 1,000 mg tablet 1,000 mg PO BID 11/10/23 Unk nown History empagliflozin 25 mg tablet 25 mg PO DAILY 03/26/24 Unk nown History (Jardiance) gabapentin 300 mg capsule 300 mg PO TID 03/26/24 Unkno wn History Allergy/AdvReac Type Severity Reaction Status Date / Time trazodone (trazamine) AdvReac Mild Other Verified 08/03/24 22:22 Family History Mother Stomach cancer Father No problems noted. Surgical History History of carpal tunnel surgery Social History household members: none housing: other details: Living in his vehicle. Smoking Status: Current every day smoker tobacco type: cigarettes alcohol intake: current alcohol intake frequency: 3 or more drinks per day details: 4-pints beer daily. substance use type: does not use ROS ROS ED ROS Narrative Review of systems positive for bleeding from bilateral feet. He suspects bleeding from the bottom of his left foot which he cannot visualize, and a small cut on the right side. Denies other bleeding diathesis. No recent fevers or chills, no nausea or vomiting, no abdominal pain or other symptoms. EXAM Physical Exam Narrative Exam Narrative: Afebrile. Vital signs noted. Nontoxic-appearing. Cardiovascular examination regular rate and rhythm. Lungs are clear to auscultation bilaterally. Abdomen is soft, obese, nontender, without guarding or rebound. Positive bowel sounds. Inspection of the bottom of the left foot does reveal an unroofed blister on the plantar aspect of the lateral left forefoot. No pulsatile bleeding. On the right foot, there is dried blood on the toes, and a small blister on the plantar aspect of the right lateral forefoot with small abrasion laterally without active bleeding. No purulent drainage. Const Vital Signs: 09/06/24 17:25 Temperature 97 F L Temperature Source Temporal Pulse Rate 83 Respiratory Rate 14 Blood Pressure 152/92 H Blood Pressure Mean 112 Pulse Ox 98 Oxygen Delivery Method Room Air MDM MDM MDM Narrative Medical decision making narrative: I do not feel that any of these open areas require suturing. There is slight capillary bleeding from the unroofed left foot blister on the plantar aspect. His wounds will be cleansed and Vaseline gauze dressing applied. I do not feel he requires antibiotics. I do not feel he requires laboratory testing as well. However, patient states that he does not have a primary care provider, and he is running out of his diabetic medications. Social work was consulted. He was referred to podiatry as he should have his wounds checked frequently given his history of diabetes. He was updated on his Tdap immunization. He was also referred to the [facility]. Return instructions to the emergency department were reviewed. Disposition is discharged home in stable condition. History & Record Review Discussion w/independent historian: Patient Additional record(s) reviewed:: Prior ED visit (Seen for prior alcohol intoxication.) Discharge Plan Triage Chief Complaint: Wound ED Provider: Brian Felix Dx/Rx/DC Orders Clinical Impression: Blister (nonthermal), right foot, initial encounter, Blister (nonthermal), left foot, initial encounter, History of diabetes mellitus, Diabetic neuropathy Instructions: ED Blister (Adult), ED Diabetic Foot Care Prescriptions: No Action Jardiance 25 mg tablet 25 mg PO DAILY gabapentin 300 mg capsule 300 mg PO TID carvedilol 25 mg tablet 12.5 mg PO BID cetirizine 10 mg tablet 10 mg PO DAILY atorvastatin 10 mg tablet 10 mg PO DAILY meloxicam 15 mg tablet 15 mg PO DAILY glipizide 2.5 mg tablet extended release 24hr 2.5 mg PO DAILY metformin 1,000 mg tablet 1,000 mg PO BID lisinopril-hydrochlorothiazide 10-12.5 mg tablet 1 tab PO DAILY albuterol sulfate 90 mcg/actuation HFA aerosol inhaler 1 puff inhalation Q4H PRN PRN (Reason: wheezing) fluoxetine 60 mg tablet 60 mg PO DAILY Eliquis 5 mg tablet 5 mg PO BID Primary Care Provider: Care Physician,No Primary Referrals: Dalton Garcia DPM [Med Staff - Active Staff] - As soon as possible Care Physician,No Primary [Primary Care Provider] - Alon Marcos, CONTRACT ADMINISTRATION MANAGER-C [[facility]] - As soon as possible Print Language: Divehi Disposition Disposition: Home, Self Care
[2024-09-06] MEDS: Diphth,Pertuss(Acell),Tet Vac 0.5 ML Vial IM (19:31)
--- NOTE | 2024-09-06 19:31 | CM.ED ---
Social Work Patient stated he has been homeless for about 3 years after loosing his apartment. Patient has been staying at [facility] for roughly the last month. Patient has connected with [facility] and is working with the homeless navigator to gain permanent housing. Patient has also obtained a transport pass and a pool pass for the summer. Patient was given information for [facility] as he does not currently have a PCP and is running out of his medications. [facility] provider list was also given to patient along with [facility] van information. No further needs identified at this time. Francia Torres, ADOLESCENT COUNSELOR, SECURITY DISPATCHER
== END 2024-09-06 20:24 | disposition home or self-care (01) ==
PROVIDERS: Emergency Provider Emergency Medicine; Visit Provider Emergency Medicine
DX: S90.821A Blister (nonthermal), right foot, initial encounter (principal); E66.01 Morbid (severe) obesity due to excess calories; E11.40 Type 2 diabetes mellitus with diabetic neuropathy, unspecified; S90.822A Blister (nonthermal), left foot, initial encounter; S90.811A Abrasion, right foot, initial encounter; X58.XXXA Exposure to other specified factors, initial encounter; Y92.34 Swimming pool (public) as the place of occurrence of the external cause; I10 Essential (primary) hypertension; F41.9 Anxiety disorder, unspecified; F32.A Depression, unspecified; F43.10 Post-traumatic stress disorder, unspecified; J45.909 Unspecified asthma, uncomplicated; F17.210 Nicotine dependence, cigarettes, uncomplicated; Z79.01 Long term (current) use of anticoagulants; Z79.84 Long term (current) use of oral hypoglycemic drugs; Z79.899 Other long term (current) drug therapy
CPT/HCPCS: 90715; 99285

== ENCOUNTER 2024-09-15 12:23 | Inpatient (IN) | payer MEDICAID, SELFPAY ==
[2024-09-15 12:24] VITALS: BP 103/63; PULSE 87; RESP 14; TEMP 36.1; O2SAT 98
[2024-09-15 12:26] VITALS: BMI 45.6
--- NOTE | 2024-09-15 14:10 | EX.ED.DYSGE1 ---
HPI History of Present Illness Chief Complaint: Dizziness [facility] Medical History Morbid obesity with BMI of 40.0-44.9, adult Homeless single person Tobacco abuse Medical non-compliance Diabetes mellitus, type 2 Cannabis abuse Acute alcohol intoxication Desire for detoxification Alcohol abuse Allergic rhinitis Asthma Anxiety and depression Chronic pain Kidney stones Restless legs Hypertension Tobacco use Alcohol abuse Degeneration of spine PTSD (post-traumatic stress disorder) Diabetes Home Medications ?Medication ?Instructions ?Recorded ?Last Taken ?Type albuterol sulfate 90 mcg/actuation 1 puff inhalation Q4H PRN PRN 11/10/23 Unknown History aerosol inhaler wheezing apixaban 5 mg tablet (Eliquis) 5 mg PO BID 11/10/23 Unknown History atorvastatin 10 mg tablet 10 mg PO DAILY 11/10/23 Unknown History carvedilol 25 mg tablet 12.5 mg PO BID 11/10/23 Unknown History cetirizine 10 mg tablet 10 mg PO DAILY 11/10/23 Unknown History fluoxetine 60 mg tablet 60 mg PO DAILY 11/10/23 Unknown History glipizide 2.5 mg tablet, extended 2.5 mg PO DAILY 11/10/23 Unknown History release 24 hr lisinopril 10 1 tab PO DAILY 11/10/23 Unknown History mg-hydrochlorothiazide 12.5 mg tablet meloxicam 15 mg tablet 15 mg PO DAILY 11/10/23 Unknown History metformin 1,000 mg tablet 1,000 mg PO BID 11/10/23 Unknown History empagliflozin 25 mg tablet 25 mg PO DAILY 03/26/24 Unknown History (Jardiance) gabapentin 300 mg capsule 300 mg PO TID 03/26/24 Unknown History Allergy/AdvReac Type Severity Reaction Status Date / Time trazodone (trazamine) AdvReac Mild Other Verified 09/15/24 12:24 Family History Mother Stomach cancer Father No problems noted. Surgical History History of carpal tunnel surgery Social History household members: none housing: other details: Living in his vehicle. Smoking Status: Current every day smoker tobacco type: cigarettes alcohol intake: current alcohol intake frequency: 3 or more drinks per day details: 4-pints beer daily. substance use type: does not use EXAM Physical Exam Const Vital Signs: 09/15/24 12:24 09/15/24 14:24 Temperature 97 F L Temperature Source Temporal Pulse Rate 87 89 Respiratory Rate 14 18 Blood Pressure 103/63 115/67 Blood Pressure Mean 76 83 Pulse Ox 98 99 Oxygen Delivery Method Room Air [place] [facility] [place] Medical decision making narrative: HISTORY OF PRESENT ILLNESS: Chief complaint: Dizziness 48-year-old male history of hyperlipidemia, hypertension, type 2 diabetes, alcohol abuse presents with concern for dizziness and swelling. He states he has been out of his medicine for months. He further states he had swelling redness and worsening pain in the left lower extremity. he notes the swelling and redness of got worse the last 4 days that is the primary reason he is in the hospital because does affect his ability to walk given pain and swelling. He also complains of occasional dizziness. Complains of occasional shortness of breath. Denies any symptoms currently. Denies chest pain. Denies abdominal pain. Denies vomiting or diarrhea. Denies slurred speech, focal loss of sensation, focal weakness. REVIEW OF SYSTEMS: Pertinent positives: Dizziness, leg swelling Pertinent negatives: Shortness of, fever PHYSICAL EXAM: Nursing triage notes reviewed, Vital signs reviewed Constitutional: please see [facility] HENT: MMM Eyes: Pupils equal round and reactive to light, Extraocular muscles intact Neck: No stridor, no JVD, full neck ROM Lungs: Clear to auscultation, No wheezing or rales. No increased work of breathing, no conversational dyspnea, no accessory muscle use, no nasal flaring. No respiratory distress noted Heart: Regular rate and rhythm, No murmurs, No rubs and No gallops, 2+ distal pulses (radial, femoral, posterior tibial) in all extremities Abdomen: Soft, there is no tenderness, rigidity, rebound or guarding, no obvious peritoneal signs, no palpable pulsatile abdominal masses, no auscultated abdominal bruit : No CVAT Extremities: 2+ pitting edema bilaterally worse on the left. Compartments are soft. Left lower extremity is warm and well-perfused. Dopplerable pulse in left lower extremity and dorsalis pedis and posterior tibial distribution. Neuro: Alert and oriented x3, neuro exam at baseline, cranial nerves II through XII are intact. No pain with extraocular muscle movement. There is negative test of skew. 5 of 5 strength in upper and lower extremities in flexion extension. Intact sensation to light touch in upper and lower extremity dermatomes. No truncal or extremity ataxia. No dysdiadochokinesia. 2+ reflexes in upper and lower extremities. No meningeal signs. Negative Babinski. NIH of 0.. Skin: erythema noted to left lower extremity essentially from the ankle up to just below the knee, no crepitus or bullae noted. Large approximate 3 x 3 cm plantar/lateral foot ulcer with a dark/black/necrotic base. No obvious purulence. MEDICAL DECISION MAKING: Chief Complaint: please see HPI External records reviewed: Reviewed prior imaging studies. Reviewed current medications. Reviewed problem list. Reviewed allergies. Factors affecting care: As per HPI Social determinants of health: History of alcohol abuse, homeless History obtained from others: none Consults: Internal medicine (Dr. Fox) accepted the patient to PCU full admission MDM Narrative: Patient was initially hemodynamically stable, afebrile and nontoxic-appearing. Exam concerning for osteomyelitis for cellulitis versus chronic diabetic foot ulcer. Exam without crepitus bullae or signs of necrotizing fasciitis I considered the following differential diagnosis: Cellulitis, osteomyelitis, ACS, arrhythmia, anemia, electrolyte disturbance, CHF I obtained a broad lab and imaging workup to further determine if the patient was suffering from a life-threatening etiology. Initially treated the patient with Reglan given report of headache. Held off on a fluid bolus as patient had bilateral lower extreme extremity edema concern for heart failure. ALL IMAGES (IF OBTAINED) HAVE BEEN PERSONALLY REVIEWED AND INTERPRETED BY MYSELF. EKG with normal sinus rhythm rate of 74, left axis deviation, normal intervals, no STEMI Left lower extremity duplex ultrasound to rule out blood clot was read as negative per charging plug placer. Will await confirmatory read by radiology. VBG without evidence of acidosis, bicarb is greater than 15 making DKA less likely Lactate is wnl indicating no end-organ hypoperfusion and/or hypoxia. LFTs show no evidence of hepatobiliary pathology. CRP, elevated consistent with systemic inflammation High-sensitivity troponin is negative, no evidence of myocardial ischemia BNP elevated consistent with volume overload X-ray of the chest was read and reviewed personally by myself and showed no evidence of obvious pneumonia or heart failure. Radiologist agreed my interpretation X-ray of the left foot was read reviewed personally myself showed no evidence of bony abnormality including fracture or dislocation with osteomyelitis. Radiologist reviewed my interpretation. The patient was treated with IV vancomycin given concern for severe infection in the setting of poorly controlled diabetes and homelessness. I was concerned the patient not do well at home and as such admitted the patient to the hospital for further IV therapy, medication reinitiation and chronic medical comorbidity stabilization. Discussed with hospitalist who agreed admit the patient. The patient and/or family, caregivers express understanding. The patient and/or family, caregivers agrees with the plan. Shared decision making: I will have a discussion with the patient and or visitors regarding risk/benefits of further testing or admission. They will be made aware of of the risk/benefits inherent in this decision they will be given the opportunity to voice understanding. Total critical care time today provided was at least 0 minutes. This excludes separately billable procedures. Critical care time (if documented) is secondary to the patient having high probability of clinically significant/life threatening deterioration in the patient's condition which required my urgent intervention. Impression: 1. Left lower extremity cellulitis 2. Diabetic foot ulcer 3. Hyperglycemia 4. Pseudohyponatremia 5. Leukocytosis 6. Acute kidney injury Dispo: [] This note was generated with [employer] dictation software. It may contain incorrect words, spelling, and punctuation that were not noted in review of the chart prior to signing. Lab Data Labs: Laboratory Results - last 24 hr 09/15/24 13:52 WBC 12.9 H RBC 4.31 L Hgb 13.8 Hct 40.1 MCV 93.0 MCH 32.0 MCHC 34.4 RDW Std Deviation 47.6 H RDW Coeff of Rachel 14.0 Plt Count 262 MPV 9.9 Immature Gran % (Auto) 0.800 Neut % (Auto) 86.1 H Lymph % (Auto) 6.3 L [place] % (Auto) 6.0 Eos % (Auto) 0.2 Baso % (Auto) 0.6 Absolute Neuts (auto) 11.1 H Absolute Lymphs (auto) 0.81 L Nucleated RBC % 0 Sodium 125 L Potassium 4.1 Chloride 90 L Carbon Dioxide 22.5 Anion Gap 12 BUN 17 Creatinine 1.34 H Est GFR (MDRD) Non-Af 65 BUN/Creatinine Ratio 12.4 Glucose 501 H* Calcium 9.3 Total Bilirubin 0.55 AST 12 ALT 9 Alkaline Phosphatase 106 Troponin T High Sens 42 H C-React Prot Ext Range 198.00 H NT pro BNP II 2086 H Total Protein 7.3 Albumin 3.3 L Globulin 4.0 Albumin/Globulin Ratio 0.8 L Radiography Diagnostic Testing: Clinical Impression(s) from Imaging Studies Chest X-Ray 09/15/24 15:03 IMPRESSION: No acute pulmonary process Reading Location: [facility] Foot X-Ray 09/15/24 15:03 IMPRESSION: No more than minimal degenerative changes are seen. No osseous destructive changes evident. No cortical or periosteal abnormality is seen to suggest the presence of osteomyelitis. Satisfactory osseous alignment is present. No fracture or dislocation is seen. Reading Location: [place] [address] Discharge Plan Triage Chief Complaint: Dizziness ED Provider: Giovany Valdez Dx/Rx/DC Orders Prescriptions: No Action Jardiance 25 mg tablet 25 mg PO DAILY gabapentin 300 mg capsule 300 mg PO TID carvedilol 25 mg tablet 12.5 mg PO BID cetirizine 10 mg tablet 10 mg PO DAILY atorvastatin 10 mg tablet 10 mg PO DAILY meloxicam 15 mg tablet 15 mg PO DAILY glipizide 2.5 mg tablet extended release 24hr 2.5 mg PO DAILY metformin 1,000 mg tablet 1,000 mg PO BID lisinopril-hydrochlorothiazide 10-12.5 mg tablet 1 tab PO DAILY albuterol sulfate 90 mcg/actuation HFA aerosol inhaler 1 puff inhalation Q4H PRN PRN (Reason: wheezing) fluoxetine 60 mg tablet 60 mg PO DAILY Eliquis 5 mg tablet 5 mg PO BID Primary Care Provider: Care Physician,No Primary Referrals: Care Physician,No Primary [Primary Care Provider] - Print Language: Martiniquais
[2024-09-15 14:24] VITALS: BP 115/67; PULSE 89; RESP 18; O2SAT 99
--- NOTE | 2024-09-15 14:26 | EKG12_ITS ---
Test Reason : DIZZINESS Blood Pressure : */* mmHG Vent. Rate : 74 BPM Atrial Rate : 74 BPM P-R Int : 192 ms QRS Dur : 112 ms QT Int : 404 ms P-R-T Axes : 68 -36 48 degrees QTcB Int : 448 ms Normal sinus rhythm Left axis deviation Abnormal ECG Confirmed by FLAVIO ANDRADE, KARLA ([id number]), editor greeting card JUAN DREW ([id number]) on 09/16/2024 10:08:28 AM Referred By: Confirmed By: KARLA MUNIZ MD
--- NOTE | 2024-09-15 14:26 | EKG12_ITS ---
Test Reason : DIZZINESS Blood Pressure : */* mmHG Vent. Rate : 74 BPM Atrial Rate : 74 BPM P-R Int : 192 ms QRS Dur : 112 ms QT Int : 404 ms P-R-T Axes : 68 -36 48 degrees QTcB Int : 448 ms Normal sinus rhythm Left axis deviation Abnormal ECG Confirmed by FLAVIO ANDRADE, KARLA ([id number]), videotape editor JUAN DREW ([id number]) on 09/16/2024 10:08:28 AM Referred By: Confirmed By: KARLA MUNIZ MD
--- NOTE | 2024-09-15 14:28 | VDLE_ITS ---
Reason For Study Reason For Study: Swelling RIGHT LEFT CFV is compressible, spontaneous, phasic, competent GSV is normal. and demonstrates normal augmentation. CFV is compressible, spontaneous, phasic, competent, Procedure and demonstrates normal augmentation. This is a venous duplex using B-mode, color flow and FV is compressible, spontaneous, phasic, competent spectral Doppler. and demonstrates normal augmentation. Exam performed portable in ED. POP V is compressible, spontaneous, phasic, competent A preliminary report was called and/or faxed to and demonstrates normal augmentation. Giovany Valdez DO. T/P Trunk is compressible. PTV is compressible. LT PerV is compressible. VL/Venous Duplex US, Unilateral Interpretation Summary Deep veins of the left lower extremity are patent and compressible segmentally. There is no evidence of left lower extremity deep vein thrombosis. The left great saphenous vein appears patent an d compressible segmentally. Ordering Physician: Giovany Valdez Performed By: Maria Dolores Aaron RVAlireza
--- NOTE | 2024-09-15 14:28 | VDLE_ITS ---
Reason For Study Reason For Study: Swelling RIGHT LEFT CFV is compressible, spontaneous, phasic, competent GSV is normal. and demonstrates normal augmentation. CFV is compressible, spontaneous, phasic, competent, Procedure and demonstrates normal augmentation. This is a venous duplex using B-mode, color flow and FV is compressible, spontaneous, phasic, competent spectral Doppler. and demonstrates normal augmentation. Exam performed portable in ED. POP V is compressible, spontaneous, phasic, competent A preliminary report was called and/or faxed to and demonstrates normal augmentation. Giovany Valdez DO. T/P Trunk is compressible. PTV is compressible. LT PerV is compressible. VL/Venous Duplex US, Unilateral Interpretation Summary Deep veins of the left lower extremity are patent and compressible segmentally. There is no evidence of left lower extremity deep vein thrombosis. The left great saphenous vein appears patent an d compressible segmentally. Ordering Physician: Giovany Valdez Performed By: Maria Dolores Aaron RVAlireza
--- NOTE | 2024-09-15 15:03 | RAD_ITS ---
PROCEDURE: FOOT MIN 3 VIEWS 09/15/2024 REASON FOR EXAM: PLANTAR DIABET[employer] ULCER RULE OUT OSTEOMYELITIS TECHNIQUE: FOOT MIN 3 VIEWS COMPARISON: None. RAD/Foot min 3 Views IMPRESSION: No more than minimal degenerative changes are seen. No osseous destructive changes evident. No cortical or periosteal abnormality is seen to suggest the presence of osteomyelitis. Satisfactory osseous alignment is present. No fracture or dislocation is seen. Reading Location: [facility]
--- NOTE | 2024-09-15 15:03 | RAD_ITS ---
PROCEDURE: Chest x-ray, 09/15/2024 REASON FOR EXAM: LOWER EXTREMITY EDEMA TECHNIQUE: 3 AP portable views COMPARISON: None FINDINGS: Hardware: EKG leads overlie the chest Heart: The heart size is normal. Lungs: The lungs are clear. Bones: The bones are unremarkable. Other: RAD/Chest 1 View (Portable) IMPRESSION: No acute pulmonary process Reading Location: [id number]
--- NOTE | 2024-09-15 15:03 | RAD_ITS ---
PROCEDURE: Chest x-ray, 09/15/2024 REASON FOR EXAM: LOWER EXTREMITY EDEMA TECHNIQUE: 3 AP portable views COMPARISON: None FINDINGS: Hardware: EKG leads overlie the chest Heart: The heart size is normal. Lungs: The lungs are clear. Bones: The bones are unremarkable. Other: RAD/Chest 1 View (Portable) IMPRESSION: No acute pulmonary process Reading Location: [id number]
--- NOTE | 2024-09-15 15:03 | RAD_ITS ---
PROCEDURE: FOOT MIN 3 VIEWS 09/15/2024 REASON FOR EXAM: PLANTAR DIABETIC ULCER RULE OUT OSTEOMYELITIS TECHNIQUE: FOOT MIN 3 VIEWS COMPARISON: None. RAD/Foot min 3 Views IMPRESSION: No more than minimal degenerative changes are seen. No osseous destructive changes evident. No cortical or periosteal abnormality is seen to suggest the presence of osteomyelitis. Satisfactory osseous alignment is present. No fracture or dislocation is seen. Reading Location: [facility]
[2024-09-15 15:17] LABS: Hematocrit 40.1 % (40-54); Hemoglobin 13.8 g/dL (13.0-16.5); Immature Granulocytes Count 0.100 X10^3/uL (0.0-0.0); Mean Corp Hgb Conc 34.4 g/dL (32-36); Mean Corpuscular Volume 93.0 fL (80-94); Mean Platelet Vol. 9.9 fl (6.2-12.0); NRBC Flagged by Analyzer 0 % (0-5); POSITIVE MORPHOLOGY YES; Platelet Count 262 K/mm3 (150-450); RBC Distribution Width CV 14.0 % (11.6-14.6); RBC Distribution Width SD 47.6 fl (35.1-43.9); Red Blood Count 4.31 M/mm3 (4.6-6.2); White Blood Count 12.9 K/mm3 (4.4-11.0)
[2024-09-15 15:30] LABS: AST(SGOT) 12 U/L (<=37); Alanine Aminotransfer ALT/SGPT 9 U/L (<=46); Albumin, Serum 3.3 g/dL (3.5-5.0); Alkaline Phosphatase 106 U/L (40-129); Anion Gap 12 (5-15); BUN 17 mg/dL (4-19); BUN/Creat Ratio 12.4 RATIO (10-20); CRP 198.00 mg/L (0.0-3.0); Calcium,Total 9.3 mg/dL (7.6-11.0); Carbon Dioxide 22.5 mmol/L (21.0-32.0); Chloride 90 mmol/L (98-108); Globulin 4.0 g/dL (2.2-4.2); Glucose 501 mg/dL (70-99); Potassium 4.1 mmol/L (3.3-5.1); Pro- Brain NATRIURETIC PEPTIDE 2086 pg/mL (<=450)
[2024-09-15 15:35] LABS: Differential Indicated SCAN CRITERIA MET
[2024-09-15 15:42] LABS: Troponin T High Sensitivity 42 ng/L (<=22)
[2024-09-15 16:00] VITALS: PULSE 72; RESP 16; O2SAT 99
[2024-09-15 16:07] LABS: SITE Not entered; VBG BASE EXCESS 3 mmol/L (-1.0-3.5); VBG PO2 21 mmHg (25-40); VBG SO2 31 % (50-70); VBG TCO2 30 mmol/L (23-33)
[2024-09-15 16:24] LABS: Differential Comment SCANNED
[2024-09-15] MEDS: Vancomycin HCl 1,500 MG in 0.9% Normal Saline (500mL Bag) 500 ML 250 MG IV (16:28)
--- NOTE | 2024-09-15 16:32 | HP.PCM.HOS_ITS ---
HPI - General General Date of Admission: 09/15/24 Date of Service: 09/15/24 Chief Complaint: Worsening left lower leg swelling with foot wound HPI Narrative SUKHWINDER MEYER, is a 48 M who presented to [facility] ED on 09/15/2024 with worsening left lower leg swelling. Patient was hospitalized here in March and July of this year for alcohol detox. He has been sober from alcohol since July but he remains homeless. Unfortunately he has run out of all of his medications as well and has been off these medications for at least 1 to 2 months. His medical history is significant for type 2 diabetes mellitus with diabetic neuropathy, hypertension, hyperlipidemia and A-fib/flutter on Eliquis. He notes that he bumped his left foot while at the pool about 1 week ago. Over the past few days he has developed significant left lower extremity swelling with erythema extending up to the knee, so he came in for further evaluation. In the ED he was afebrile and hemodynamically stable on room air. Labs notable for WBC count 12.9, sodium 125, chloride 90, creatinine 1.34 (baseline 0.7), glucose 501, NT proBNP 2086, CRP 198. Left foot x-ray showed no osseous destructive changes concerning for osteomyelitis. Lower extremity duplex ultrasound was negative for DVT. Given suspected left lower extremity cellulitis with diabetic foot wound, hospitalist was contacted for admission. I saw the patient at bedside in the ED. Patient was mildly fatigued. But otherwise sitting back comfortably in bed, conversing normally, in no acute distress. Noted that his left leg does feel warm, tender to the touch and swollen. Also notes that his legs bilaterally and abdomen feel more swollen and bloated than normal. His appetite has been decreased over the past several days. No other acute concerns currently. Will be admitted for further management. [facility] Medical History Anxiety Depression Smoker Congestive heart failure (CHF) Hypertension Morbid obesity with BMI of 40.0-44.9, adult Homeless single person Tobacco abuse Medical non-compliance Diabetes mellitus, type 2 Cannabis abuse Acute alcohol intoxication Allergic rhinitis Anxiety and depression Chronic pain Kidney stones Desire for detoxification Alcohol abuse Restless legs Hypertension Tobacco use Alcohol abuse Degeneration of spine PTSD (post-traumatic stress disorder) Diabetes Asthma Home Medications ?Medication ?Instructions ?Recorded ?Last Taken ?Type albuterol sulfate 90 mcg/actuation 1 puff inhalation Q 4H PRN PRN 11/10/23 Unknown History aerosol inhaler wheezing apixaban 5 mg tablet (Eliquis) 5 mg PO BID 11/10/23 Un known History atorvastatin 10 mg tablet 10 mg PO DAILY cholestrol Unknown History carvedilol 25 mg tablet 12.5 mg PO BID heart rate Unknown History fluoxetine 60 mg tablet 60 mg PO DAILY mood 11/10/23 Unknown History glipizide 2.5 mg tablet, extended 2.5 mg PO DAILY bloo d glucose 11/10/23 Unknown History release 24 hr lisinopril 10 1 tab PO DAILY bp 11/10/23 U nknown History mg-hydrochlorothiazide 12.5 mg tablet meloxicam 15 mg tablet 15 mg PO DAILY pain 11/10/23 Unknown History metformin 1,000 mg tablet 1,000 mg PO BID blood glucos e 11/10/23 Unknown History empagliflozin 25 mg tablet 25 mg PO DAILY blood glucos e 03/26/24 Unknown History (Jardiance) gabapentin 300 mg capsule 300 mg PO TID neuropathy 01/08 Unknown History clonidine HCl 0.1 mg tablet 0.1 mg PO BID blood pressu re 09/15/24 Unknown History Allergy/AdvReac Type Severity Reaction Status Date / Time trazodone (trazamine) AdvReac Mild Other Verified 09/15/24 12:24 Family History Mother Stomach cancer Father No problems noted. Surgical History History of carpal tunnel surgery Social History household members: none housing: other details: Living in his vehicle. Smoking Status: Current every day smoker tobacco type: cigarettes alcohol intake: current alcohol intake frequency: 3 or more drinks per day details: 4-pints beer daily. substance use type: does not use ROS Constitutional Constitutional: Reports fatigue; Denies chills, fever(s) or weakness Eyes Eyes: Denies change in vision Cardiovascular Cardiovascular: Denies chest pain Respiratory/Chest Respiratory/Chest: Denies shortness of breath at rest Gastrointestinal Gastrointestinal: Denies abdominal pain Genitourinary Genitourinary: Denies dysuria Musculoskeletal Musculoskeletal: Reports other Details: Left leg swelling, erythema and tenderness to palpation ; Denies arthralgias or myalgias Neurologic Neurologic: Denies dizziness, focal weakness, headache(s), numbness or tingling Vital Signs Vital Signs Vital Signs: 09/15/24 12:24 09/15/24 14:24 09/15/24 16:00 Temperature 97 F L Temperature Source Temporal Pulse Rate 87 89 72 Respiratory Rate 14 18 16 Blood Pressure 103/63 115/67 Blood Pressure Mean 76 83 Pulse Ox 98 99 99 Oxygen Delivery Method Room Air Room Air Weight Weight: 152.498 kg Body Mass Index (BMI) 45.6 Physical Exam Const alert, oriented x3 and no apparent distress Constitutional Narrative: Pleasant middle-age male, class III obesity, mildly fatigued appearing but otherwise sitting back comfortably in bed, conversing normally, in no acute distress. General Appearance: cooperative and comfortable HEENT normocephalic, head/scalp atraumatic, hearing grossly normal bilaterally, nasal mucous membranes and turbinates normal and moist oral mucous membranes Eyes PERRL, EOMs intact bilaterally and conjunctivae normal Neck full ROM Chest inspection of chest normal Resp normal respiratory effort, normal air movement, no use of accessory muscles and clear to auscultation bilaterally Cardio regular rate, regular rhythm, no murmurs and peripheral pulses 2+ throughout GI normal to inspection, nondistended, normoactive bowel sounds, soft to palpation, non-tender and non-distended Back/Spine normal ROM Extremity Extremity Narrative: Left leg with significant erythema up to the knee with swelling and tenderness to palpation. Wound on plantar surface of left foot with dry eschar noted. Psych mental status grossly normal Results Lab / Micro Data 09/15/24 13:52 09/15/24 13:52 Labs: Laboratory Results - last 24 hr 09/15/24 13:52: WBC 12.9 H, RBC 4.31 L, Hgb 13.8, Hct 40.1, MCV 93.0, MCH 32.0, MCHC 34.4, RDW Std Deviation 47.6 H, RDW Coeff of Rachel 14.0, Plt Count 262, MPV 9.9, Immature Gran % (Auto) 0.800, Neut % (Auto) 86.1 H, Lymph % (Auto) 6.3 L, [place] % (Auto) 6.0, Eos % (Auto) 0.2, Baso % (Auto) 0.6, Absolute Neuts (auto) 11.1 H, Absolute Lymphs (auto) 0.81 L, Nucleated RBC % 0, Differential Comment SCANNED, Platelet Estimate ADEQUATE, ESR 18, Sodium 125 L, Potassium 4.1, C hloride 90 L, Carbon Dioxide 22.5, Anion Gap 12, BUN 17, Creatinine 1.34 H, Est GFR (MDRD) Non-Af 65, BUN/Creatinine Ratio 12.4, Glucose 501 H*, Calcium 9.3, Total Bilirubin 0.55, AST 12, ALT 9, Alkaline Phosphatase 106, Troponin T High Sens 42 H, C-React Prot Ext Range 198.00 H, NT pro BNP II 2086 H, Total Protein 7.3, Albumin 3.3 L, Globulin 4.0, Albumin/Globulin Ratio 0.8 L 09/15/24 15:02: Lactic Acid 1.8 ABG Data ABG results: ABG 09/15/24 16:02 Specimen Type CLARITZA Sample Site Not entered VBG pH 7.34 VBG pO2 21 L VBG HCO3 29 H VBG Total CO2 30 VBG O2 Sat (Calc) 31 L VBG Base Excess 3 POC Mix VBG pCO2 Pt Tmp 53.7 H O2 Delivery Device Not entered Imaging Radiology Impression Chest X-Ray 09/15/24 15:03 IMPRESSION: No acute pulmonary process Reading Location: [facility] Foot X-Ray 09/15/24 15:03 IMPRESSION: No more than minimal degenerative changes are seen. No osseous destructive changes evident. No cortical or periosteal abnormality is seen to suggest the presence of osteomyelitis. Satisfactory osseous alignment is present. No fracture or dislocation is seen. Reading Location: [facility] Assessment & Plan Assessment/Plan (1) Cellulitis of left leg: PLAN: Plan Patient is a 48-year-old male who presented to [facility] ED on 09/15/2024 with worsening left lower leg swelling with left foot wound. 1. Left lower extremity cellulitis, bilateral stable diabetic foot wounds ? Admit under inpatient status to PCU. Podiatry and wound care consulted. PT/OT/case management consulted. Podiatry evaluated the patient this evening; foot x-rays with no evidence of osteomyelitis and bilateral foot wounds appear stable with dry eschar. Podiatry recommended conservative management with IV antibiotics and appropriate wound care, no need for surgical intervention at this time. Will treat with IV vancomycin and Unasyn for now. Appreciate therapy recommendations. 2. Poorly controlled type 2 diabetes mellitus with severe hyperglycemia, diabetic neuropathy ? Blood glucose 501 on admit. Last A1c 10.9% in July, repeat A1c ordered. Nonadherent to home oral diabetes medications. No evidence of DKA on admit. Will treat with Lantus 15 units twice daily and Humalog 8 units with meals plus sliding scale insulin while inpatient, adjust as needed. Patient would benefit from initiation of insulin therapy on discharge but will need case management/social work assistance with this as below. Continue home gabapentin. Hold home oral medications. 3. Poor social situation with homelessness and medication nonadherence ? Case management/social work consulted. Patient is homeless and reports nonadherence to all home medications for 1 to 2 months due to running out of them. Appreciate case management and social work assistance. 4. Concern for new onset CHF in setting of hypertension, hyperlipidemia, paroxysmal A-fib/flutter ? Patient with mild volume overload noted on admit with lower extremity edema and mild abdominal distention. BNP elevated at 6. Echocardiogram ordered. Will treat with IV Lasix 20 mg twice daily for now, monitor daily BMP and urine output. Low threshold to de-escalate diuretic therapy as patient is not significantly volume overloaded. In normal sinus rhythm on admit. Okay to continue home Eliquis, statin and Coreg. Will hold lisinopril?hydrochlorothiazide and clonidine for now. 5. IVANA ? Creatinine 1.34 on admit, baseline around 0.7. Suspect secondary to mild CHF exacerbation as above. Treated with IV Lasix as above, follow-up BMP and urine output. 6. Anxiety/depression ? Continue home fluoxetine. 7. Class III obesity ? BMI 41 on admit. Complicates hospital course, care and prognosis. 8. Recent history of alcohol abuse ? Patient hospitalized in March and July of this year for alcohol detox. Reports that he has been sober since July. Alcohol level ordered. Case management consulted as above for resources if needed. Encouraged continued cessation. Will hold on CIWA protocol at this time. 9. Tobacco abuse ? Reports smoking 0.5-1 packs of cigarettes per day. Nicotine patch in place per patient request. Discussed cessation of discharge. DVT prophylaxis: Not indicated, on Eliquis CODE STATUS: Full code, verified Expected disposition: TBD Total clinical time spent by myself addressing the patient's medical issues, reviewing all the data, and collaborating with patient's care team: 75 minutes. Charges/Coding Visit Charges Inpatient E&M: 45096 Init Hosp L3
[2024-09-15 16:46] VITALS: BP 138/90; PULSE 72; RESP 16; TEMP 37.1; O2SAT 99
--- NOTE | 2024-09-15 16:57 | ECHOCS_ITS ---
Reason For Study Reason For Study: CHF Procedure This was a 2D Doppler, Color Flow transthoracic echocardiogram. The study was technically difficult. Contrast injection was performed. Exam performed portable in patient room. Left Ventricle Normal left ventricle. The estimated ejection fraction is 55???60 %. Right Ventricle Normal right ventricle. Normal systolic function. Atria Normal left atrium. Normal right atrium. Mitral Valve The mitral valve is structurally normal. No prolapse or stenosis seen. Tricuspid Valve The tricuspid valve is not well visualized. Aortic Valve Trisinus/trileaflet aortic valve. Pulmonic Valve The pulmonic valve is not well visualized. Great Vessels The aortic root is not well visualized. Pericardium/Pleural No pericardial effusion. Medication Diluted definity 1.5ml given slow IV push to enhance endocardial definition. MMode/2D Measurements & Calculations LVIDd: 5.4 cm IVSd: 0.97 cm LAV(MOD- bp): 35.1 ml LVIDs: 3.6 cm LVPWd: 1.2 cm FS: 33.7 % LAV(MOD- bp) Indexed: 12.7 ml/m2 LAV(MOD- sp2): 25.4 ml LAV(MOD- sp4): 46.5 ml SV(MOD-sp4): 92.0 ml SV(sp4- el): 99.1 ml LVAd ap4: 42.4 cm2 LVLd ap4: 9.4 cm SI(MOD-sp4): 33.2 ml/m2 EDV(MOD-sp4): 152.2 ml EDV(sp4-el): 163.2 ml LVAs ap4: 24.4 cm2 LVLs ap4: 7.9 cm ESV(MOD-sp4): 60.2 ml ESV(sp4-el): 64.1 ml EF(MOD-sp4): 60.4 % EF(sp4-el): 60.7 % LA A4 area: 17.5 cm2 RA A4 area: 14.4 cm2 Time Measurements MV dec time: 0.11 sec Doppler Measurements & Calculations MV E max tyshawn: 68.6 cm/sec Lat Peak E' Tyshawn: 11.6 cm/sec Med Peak E' Tyshawn: 10.5 cm/sec MV A max tyshawn: 64.0 cm/sec E/E' lat: 5.9 E/E' med: 6.5 MV E/A: 1.1 MV V2 max: 79.0 cm/sec MV dec slope: 621.0 cm/sec2 Ao V2 max: 121.4 cm/sec MV max P.5 mmHg Ao max P.9 mmHg MV V2 mean: 53.9 cm/sec Ao V2 mean: 94.9 cm/sec MV mean P.3 mmHg Ao mean P.0 mmHg MV V2 VTI: 23.2 cm Ao V2 VTI: 21.5 cm AV (velocity ratio): 0.99 LV V1 max: 119.5 cm/sec LV V1 max P.7 mmHg LV V1 mean P.1 mmHg LV V1 mean: 98.4 cm/sec LV V1 VTI: 21.3 cm ECHO/Echo Complete W/ Contrast Interpretation Summary The estimated ejection fraction is 55???60 %. Normal LV systolic function No significant valvular abnormality Contrast echo using Definity. No prior echo to compare Ordering Physician: Dg Fox Referring Physician: NO PCP Performed By: Lashae Mesa and Student
[2024-09-15 17:04] LABS: BETA-HYDROXYBUTYRATE 0.0 mmol/L (0.0-0.3)
[2024-09-15 17:25] LABS: Prothrombin Time (Protime)PT. 14.0 SECONDS (11.7-14.9)
[2024-09-15 17:26] LABS: Partial Thromboplast Time 32.5 Seconds (24.1-36.2)
[2024-09-15 17:42] VITALS: BP 151/92; PULSE 72; RESP 20; TEMP 36.7; O2SAT 99; BMI 41.5
[2024-09-15 18:03] LABS: Troponin T High Sens 2 HR 34 ng/L (<=22)
--- NOTE | 2024-09-15 18:05 | PCM.CONS.GEN ---
Assessment & Plan Assessment/Plan (1) Cellulitis of left leg: PLAN: Patient was examined and evaluated. All findings were discussed with the patient. All questions were answered to the patient's satisfaction. Foot x-rays (09/15/2024): Three-view nonweightbearing left foot radiographs. Bone stock is within normal limits for the patient his age. Evidence of met adductus is appreciated to the level of the forefoot. Evidence of soft tissue defect to the plantar lateral aspect of the foot with no evidence of cortical erosions or or concern for bone infection. Evidence of mild arthritic changes appreciated throughout the foot. No evidence of radiolucency. No additional abnormalities or fractures are noted. After physical examination patient is showing evidence of cellulitis versus dependent rubor to the left lower extremity. The patient also shows evidence of stable full-thickness wounds with dry eschar to the plantar aspect of both feet as well as with stable blister to the left medial heel. All wounds and blister were dressed with Betadine soaked gauze, dry sterile dressing and a single-layer Mittal compression bandage was donned to the left lower extremity. No plan for surgical intervention at this time. Patient will be treated conservatively. Left lower extremity venous study: Deep veins of the left lower extremity are patent and compressible segmentally. There is no evidence of deep vein thrombosis. ED: IV antibiotics vancomycin Medicine: On board, medical management, IV antibiotics Unasyn No plan for surgical intervention from a podiatry standpoint. Will be treating the patient conservatively with every other day dressing changes with orders given to nursing staff. The patient will follow-up in private office for further evaluation and treatment as well as for diabetic shoes. Podiatry will continue to follow while the patient is in house. Please reach out to Dr. Dubois with any questions or concerns. Thank you for the consultation! (2) Non-pressure chronic ulcer of other part of right foot with fat layer exposed: (3) Non-pressure chronic ulcer of other part of left foot with fat layer exposed: (4) Edema: (5) Acute painful diabetic polyneuropathy: (6) Tinea unguium: PLAN: Debridement of toenails x 10 were performed down to and including normal nail limits using a double-action nail nipper done without incident. Patient expressed relief after debridement. (7) Pain around toenail, right foot: (8) Pain around toenail, left foot: (9) Blister (nonthermal), left foot, initial encounter: PLAN: Betadine paint was applied to the level of the blister. Using a double-action nail nipper and I&D of the serous bullae was performed without incident. All fluid was drained. Patient expressed relief after drainage. There is no malodor or concern for infection. The area was dressed with Betadine soaked gauze and dry sterile dressing. HPI Consult Data Date of Consult: 09/15/24 HPI Narrative Reason for Consultation: Left lower extremity cellulitis HPI Narrative: SUKHWINDER MEYER, is a 48 M with a past medical history of hyperlipidemia, hypertension, type 2 diabetes, alcohol abuse presents with concern for dizziness, swelling and redness to the left lower extremity. Patient also admitted when he entered the emergency room at [facility] that he has been out of his medication for months. He has noticed increase of redness and swelling to the left lower extremity for the past 4 days with inability to walk given the pain and swelling. Patient is a diabetic who is not well-controlled. He currently admits to some shortness of breath as well as occasional dizziness after standing for long periods of time. He denies any constitutional symptoms podiatry was consulted for concerns of left lower extremity cellulitis as well as bilateral plantar full-thickness wounds. [facility] Medical History Anxiety Depression Smoker Congestive heart failure (CHF) Hypertension Morbid obesity with BMI of 40.0-44.9, adult Homeless single person Tobacco abuse Medical non-compliance Diabetes mellitus, type 2 Cannabis abuse Acute alcohol intoxication Allergic rhinitis Anxiety and depression Chronic pain Kidney stones Desire for detoxification Alcohol abuse Restless legs Hypertension Tobacco use Alcohol abuse Degeneration of spine PTSD (post-traumatic stress disorder) Diabetes Asthma Home Medications ?Medication ?Instructions ?Recorded ?Last Taken ?Type albuterol sulfate 90 mcg/actuation 1 puff inhalation Q4H PRN PRN 11/10/23 Unknown History aerosol inhaler wheezing apixaban 5 mg tablet (Eliquis) 5 mg PO BID 11/10/23 Unknown History atorvastatin 10 mg tablet 10 mg PO DAILY cholestrol 11/10/23 Unknown History carvedilol 25 mg tablet 12.5 mg PO BID heart rate 11/10/23 Unknown History fluoxetine 60 mg tablet 60 mg PO DAILY mood 11/10/23 Unknown History glipizide 2.5 mg tablet, extended 2.5 mg PO DAILY blood glucose 11/10/23 Unknown History release 24 hr lisinopril 10 1 tab PO DAILY bp 11/10/23 Unknown History mg-hydrochlorothiazide 12.5 mg tablet meloxicam 15 mg tablet 15 mg PO DAILY pain 11/10/23 Unknown History metformin 1,000 mg tablet 1,000 mg PO BID blood glucose 11/10/23 Unknown History empagliflozin 25 mg tablet 25 mg PO DAILY blood glucose 03/26/24 Unknown History (Jardiance) gabapentin 300 mg capsule 300 mg PO TID neuropathy 03/26/24 Unknown History clonidine HCl 0.1 mg tablet 0.1 mg PO BID blood pressure 09/15/24 Unknown History Allergy/AdvReac Type Severity Reaction Status Date / Time trazodone (trazamine) AdvReac Mild Other Verified 09/15/24 12:24 Family History Mother Stomach cancer Father No problems noted. Surgical History History of carpal tunnel surgery Social History household members: none housing: other details: Living in his vehicle. Smoking Status: Current every day smoker tobacco type: cigarettes alcohol intake: current alcohol intake frequency: 3 or more drinks per day details: 4-pints beer daily. substance use type: does not use Physical Exam Narrative Vascular: DP and PT pulses faintly palpable due to swelling to the by the lower extremity. Skin temperature is warm to warm from proximal ankles to distal digits to the bilateral lower extremity, with focal increase appreciated to the left leg. +1 pitting edema appreciated to left lower extremity. Nonpitting edema appreciated right lower extremity. Neurological: Light touch is intact. Patient does not respond to painful stimuli. Protective station is absent. Dermatological: Evidence of dry eschar to the plantar lateral of the left lower extremity at the level of the subthird and 4th and 5th metatarsal heads. No drainage. No sign of infection. Evidence of dry eschar to the plantar lateral level of the right lower extremity at the level of the subfourth and subfifth metatarsal heads. No drainage no sign of infection webspace 1 through 4 clean dry and intact bilateral. Toenails x 10 are thickened elongated discolored with evidence of solid debris's. Evidence of serous bullae appreciated to the lateral ankle stable with no sign of infection. Musculoskeletal: Muscle strength 5 out of 5 in all quadrants bilateral.. Pain to palpation toenails x 10 bilateral. No pain to palpation to dry eschars to the plantar foot bilateral. No pain palpation to the serous bullae on the left medial ankle. No pain with calf pressure. Const alert, oriented x3 and no apparent distress Lab / Micro Data 09/15/24 13:52 09/15/24 13:52 Labs: Laboratory Results - last 24 hr 09/15/24 13:52: WBC 12.9 H, RBC 4.31 L, Hgb 13.8, Hct 40.1, MCV 93.0, MCH 32.0, MCHC 34.4, RDW Std Deviation 47.6 H, RDW Coeff of Rachel 14.0, Plt Count 262, MPV 9.9, Immature Gran % (Auto) 0.800, Neut % (Auto) 86.1 H, Lymph % (Auto) 6.3 L, [place] % (Auto) 6.0, Eos % (Auto) 0.2, Baso % (Auto) 0.6, Absolute Neuts (auto) 11.1 H, Absolute Lymphs (auto) 0.81 L, Nucleated RBC % 0, Differential Comment SCANNED, Platelet Estimate ADEQUATE, ESR 18, PT 14.0, INR 1.1, APTT 32.5, Sodium 125 L, Potassium 4.1, Chloride 90 L, Carbon Dioxide 22.5, Anion Gap 12, BUN 17, Creatinine 1.34 H, Est GFR (MDRD) Non-Af 65, BUN/Creatinine Ratio 12.4, Glucose 501 H*, Hemoglobin A1c 10.6 H, Calcium 9.3, Total Bilirubin 0.55, AST 12, ALT 9, Alkaline Phosphatase 106, Troponin T High Sens 42 H, C-React Prot Ext Range 198.00 H, NT pro BNP II 2086 H, Total Protein 7.3, Albumin 3.3 L, Globulin 4.0, Albumin/Globulin Ratio 0.8 L, b-Hydroxybutyric mmol/L 0.0 09/15/24 15:02: Lactic Acid 1.8 07/02/25 17:20: Troponin T Hi Sens 2 Hr 34 H ABG Data ABG results: ABG 09/15/24 16:02 Specimen Type CLARITZA Sample Site Not entered VBG pH 7.34 VBG pO2 21 L VBG HCO3 29 H VBG Total CO2 30 VBG O2 Sat (Calc) 31 L VBG Base Excess 3 POC Mix VBG pCO2 Pt Tmp 53.7 H O2 Delivery Device Not entered Imaging Radiology Impression Venous Doppler Study 09/15/24 14:28 Interpretation Summary Deep veins of the left lower extremity are patent and compressible segmentally. There is no evidence of left lower extremity deep vein thrombosis. The left great saphenous vein appears patent and compressible segmentally. Ordering Physician: Giovany Valdez Performed By: Maria Dolores Aaron, RVT Chest X-Ray 09/15/24 15:03 IMPRESSION: No acute pulmonary process Reading Location: [facility] Foot X-Ray 09/15/24 15:03 IMPRESSION: No more than minimal degenerative changes are seen. No osseous destructive changes evident. No cortical or periosteal abnormality is seen to suggest the presence of osteomyelitis. Satisfactory osseous alignment is present. No fracture or dislocation is seen. Reading Location: [place] [id number]
[2024-09-15] MEDS: Furosemide 20 MG/2 ML VIAL IV (18:32)
--- NOTE | 2024-09-15 18:41 | PCM.RX.CS ---
Consult Antibiotic Management Pharmacy has been consulted to manage selected antibiotic: Vancomycin Type of Intervention Type of Consult: New start Suspected Infection Suspected Infection: Skin/Soft tissue Prior Doses of Antibiotics Prior Doses of Antibiotics Received/Current Regimen: 09/15/24 @ 1628 Vancomycin [id number] given in ER Labs Labs: Sodium 125 mmol/L (133-145) L 09/15/24 13:52 Potassium 4.1 mmol/L (3.3-5.1) 09/15/24 13:52 Chloride 90 mmol/L (98-108) L 09/15/24 13:52 Carbon Dioxide 22.5 mmol/L (21.0-32.0) 09/15/24 13:52 Anion Gap 12 (5-15) 09/15/24 13:52 BUN 17 mg/dL (4-19) 09/15/24 13:52 Creatinine 1.34 mg/dL (0.70-1.20) H 09/15/24 13:52 Est GFR (MDRD) Non-Af 65 (>60) 09/15/24 13:52 BUN/Creatinine Ratio 12.4 RATIO (10-20) 09/15/24 13:52 Glucose 501 mg/dL (70-99) H* 09/15/24 13:52 Dosing Weight Weight used for dosin kg Goal Trough Goal Trough: 15-20 mcg/mL Pharmacy Plan for Drug Dosing Pharmacy Plan for Drug Dosing: Vancomycin 1500mg every 8 hours Pharmacy Service will continue to monitor and adjust dosing as required. Follow-Up Labs Follow-Up Labs: Trough: Vancomycin Date/Time Labs Ordered Labs to be done on [date and time ordered]: 09/16/24 @ 1600
[2024-09-15 20:15] LABS: Troponin T High Sens 4 HR 34 ng/L (<=22)
[2024-09-15] MEDS: Ampicillin/Sulbactam 3 GM in 0.9% Normal Saline (100mL MB+) 100 ML IV ×2 (20:31→23:55)
[2024-09-15] MEDS: APIXABAN 5 MG TABLET PO (20:32)
[2024-09-15] MEDS: Insulin Glargine-YFGN 100 UNIT/ML Pen 15 UNIT SC (20:32)
[2024-09-15] MEDS: BACITRACIN 15 GM Tube 1 APPLIC TOPICAL (20:32)
[2024-09-15 21:00] VITALS: BP 148/90; PULSE 75; RESP 16; TEMP 37.2; O2SAT 92
[2024-09-15] MEDS: 0.9% Saline Lock 10 ML Syringe IV (21:03)
--- NOTE | 2024-09-15 21:04 | CM.ED ---
Social Work SW met with patient and patients friend. Patient has been staying at [facility] and states he has run out of all of his medications. Patient had been to the ED previously and given information for [facility], but tells SW that he was unable to get to the clinic. Patient reports to a decrease in ability to complete ADLs. Patients friend states she brings him to her house for a few days at a time, feeds him and helps him shower but is unable to be a manager intensive care time cycle operator. Patient is interested in a SNF stay for therapy and medication management. Francia Torres, INJECTION MAINTENANCE TECHNICIAN, WEATHER STRIP MECHANIC
--- NOTE | 2024-09-15 21:04 | CM.ED ---
Social Work SW met with patient and patients friend. Patient has been staying at [facility] and states he has run out of all of his medications. Patient had been to the ED previously and given information for [facility], but tells SW that he was unable to get to the clinic. Patient reports to a decrease in ability to complete ADLs. Patients friend states she brings him to her house for a few days at a time, feeds him and helps him shower but is unable to be a rn progressive care unit account advisor. Patient is interested in a SNF stay for therapy and medication management. Francia Torres, DINING ROOM SUPERVISOR, METALLURGY TEACHER
--- OUTSIDE RECORDS SUMMARY | 2024-09-15 22:52 | XMS RPT_ITS | CCD ---
Author Organization [facility] Inform ion Partnership PRODUCT SAFETY TECHNICIAN [facility] Care Team Providers Care Maintenance Clerk Name Role Phone Xavier Simmons Primary Care Provider PHYSICIAN, NONE Primary Care Physician Unavailab le MAST LAND SURVEYOR ASSISTANT-TRAVEL COTA, YAMILETH Primary Care Physician GURWINDER FARRIS MD Attending Unavailable MAST LAND SURVEYOR ASSISTANT-TRAVEL COTA, YAMILETH Primary Care Unavailabl e MAST LAND SURVEYOR ASSISTANT-TRAVEL COTA, YAMILETH Attending Unavailabl e MAST LAND SURVEYOR ASSISTANT-TRAVEL COTA, YAMILETH Primary Care Unavailabl e MAST LAND SURVEYOR ASSISTANT-TRAVEL COTA, YAMILETH Attending Unavailabl e MAST LAND SURVEYOR ASSISTANT-TRAVEL COTA, YAMILETH Primary Care Unavailabl e MAST LAND SURVEYOR ASSISTANT-TRAVEL COTA, YAMILETH Attending Unavailabl e MAST LAND SURVEYOR ASSISTANT-TRAVEL COTA, YAMILETH Primary Care Unavailabl e MAST LAND SURVEYOR ASSISTANT-TRAVEL COTA, YAMILETH Attending Unavailabl e MAST LAND SURVEYOR ASSISTANT-TRAVEL COTA, YAMILETH Primary Care Unavailabl e MAST LAND SURVEYOR ASSISTANT-TRAVEL COTA, YAMILETH Attending Unavailabl e MAST LAND SURVEYOR ASSISTANT-TRAVEL COTA, YAMILETH Primary Care Unavailabl e Unavailable Primary Care Provider Unavailabl e RICHARD CURRIE Primary Care Unavailable MARQUES DESAI Attending Unavailable EBBINGBRAD Attending Unavailabl e EBBINGBRAD Admitting Unavailabl e Physician, No Pcp Primary Care Provider Unavaila ble PHYSICIAN, NO PCP Primary Care Unavailable MARCEL HINOJOSA Attending Unavailable PHYSICIAN, NO PCP Primary Care Unavailable Wandy Pittman Admitting Unavailable Wandy Pittman Consulting Unavailable MAST, YAMILETH Primary Care Unavailable Ronnie Witt Attending Unavailable Kristine Alexander Consulting Unavailable Kristine Alexander Admitting Unavailable Wandy Pittman Attending Unavailable MAST, YAMILETH Primary Care Unavailable Care Physician, No Primary Primary Care Unava ilable Jesse Hernandez Consulting Unavailable Jesse Hernandez Admitting Unavailable Ronnie Witt Attending Unavailable Care Physician, No Primary Primary Care Unava ilable RedeepthiBrian Attending Unavailable PittmanWandy Admitting Unavailable MAST, YAMILETH Primary Care Unavailable Ronnie Witt Attending Unavailable Pittman, Wandy Consulting Unavailable Tereletsky, Ronnie Consulting Unavailable White, Kristine L Admitting Unavailable White, Kristine L Attending Unavailable White, Kristine L Consulting Unavailable MAST, YAMILETH Primary Care Unavailable Wandy Pittman Attending Unavailable Pittman, Wandy Consulting Unavailable Care Physician, No Primary Primary Care Unava ilable Jesse Hernandez Attending Unavailable Jesse Hernandez Consulting Unavailable Jesse Hernandez Admitting Unavailable Ronnie Witt Attending Unavailable Eduar, Ronnie Consulting Unavailable Pittman, Wandy Admitting Unavailable Wandy Pittman Attending Unavailable Pittman, Wandy Consulting Unavailable MAST, YAMILETH Primary Care Unavailable Allergies Allergy Classification Reported Allergen(s) Allergy Type Date of Onset Reaction(s) Facility (1 source) traZODone Drug Allergy 08-03-2024 [facility] Repository Medications Current Medications Medication Drug Class(es) Dates Sig (Normalized) Sig (Original) acetaminophen 325 mg / HYDROcodone bitartrate 5 mg oral tablet (2 sources) Opioid Agonist Start: 05-28-2024 End: 05-31-2024 HYDROcodone-acetam inophen (NORCO) 5-325 mg per tablet Take 1 tablet by mouth 4 (four) times a day if needed for severe pain for up to 3 days. Max Daily Amount: 4 tablets 12 tablet 05/28/2024 05/31/2024 Active Start: 05-28-2024 End: 05-28-2024 take 1 tablet by mouth once 1 tablet, oral, Once, On F ri 05/28/24 at 1033, For 1 dose albuterol MDI (90 mcg/inh) CFC free inhalation aerosol (3 sources) Start: 07-29-2023 take 1 puff(s) by inhalation every four hours as needed for wheezing albuterol MDI (90 mcg/inh) CFC free inhalation aerosol 1 puff(s), Inhalation, q4h, PRN as needed for wheezing, # 18 gram(s), 2 Refill(s), Pharmacy: [facility] #[id number], 180, cm, 07/29/23 10:40:00 EDT, Height, kg, 07/29/23 10:40:00 EDT, Dosing Weight Start Date: 07/29/23 Status: Ordered Start: 11-12-2022 take 1 puff(s) by in halation every four hours as needed for wheezing albuterol MDI (90 mcg/inh) CFC free inhalation aerosol 1 puff(s), Inhalation, q4h, PRN as needed for wheezing, # 18 gram(s), 2 Refill(s), Pharmacy: [facility] #[id number], 178, cm, 11/12/22 11:25:00 EDT, Height, kg, 11/12/22 11:25:00 EDT, Dosing Weight Start Date: 11/12/22 Status: Ordered albuterol-budesonide (AIRSUPRA) 90-80 mcg/actuation HFAA (3 sources) Start: 07-29-2023 albuterol-budesonide (AIRSUPRA) 90-80 mcg/actuation HFAA 1 puff . 07/29/2023 Active apixaban 5 mg oral tablet (4 sources) Factor Xa Inhibitor Start: 11-12-2022 End: 07-23-2024 Eliquis 5 mg oral tablet Dose : 5 mg = 1 tab(s), Oral, BID, # 60 tab(s), 11 Refill(s), Pharmacy: [facility] #[id number], 180, cm, 07/29/23 10:40:00 EDT, Height, 139.5, kg, 07/29/23 10:40:00 EDT, Dosing Weight Start Date: 07/29/23 Stop Date: 07/23/24 Status: Ordered Start: 10-11-2022 End: 11-10-2022 Eliquis 5 mg oral tablet Dos e : 5 mg = 1 tab(s), Oral, BID, # 60 tab(s), 0 Refill(s), 140.9 Start Date: 10/11/22 Stop Date: 11/10/22 Status: Ordered aspirin 81 mg delayed release oral tablet (1 source) Platelet Aggregation Inhibitor, Nonsteroidal Anti-inflammatory Drug Start: 02-05-2021 take 1 tablet by mouth once daily aspirin EC 81 MG EC tablet Take 1 tablet by mouth daily 90 tablet 1 02/05/2021 Active atorvastatin 10 mg oral tablet (2 sources) HMG-CoA Reductase Inhibitor Start: 03-21-2023 End: 03-15-2024 atorvastatin 10 mg oral tablet Dose : 10 mg = 1 tab(s), Oral, qDay, # 30 tab(s), 11 Refill(s), [facility]acy: [facility] #[id number], 180, cm, 03/21/23 10:52:00 EST, Height, kg, 03/21/23 10:52:00 EST, Dosing Weight Start Date: 03/21/23 Stop Date: 03/15/24 Status: Ordered blood glucose monitor kit and supplies (2 sources) Start: 03-29-2020 blood glucose monitor kit and supplies 1 kit by Other route daily Please supply whichever Home blood glucose monitor is covered by patients insurance. 1 kit 2 03/29/2020 Active 12 hr buPROPion hydrochloride 100 mg extended release oral tablet (1 source) Aminoketone Start: 06-27-2021 take 1 tablet by mouth twice daily buPROPion (WELLBUTRIN SR) 100 MG extended release tablet Take 1 tablet by mouth 2 times daily 60 tablet 1 06/27/2021 Active BuPROPion (Eqv-Wellbutrin SR) 150 mg/12 hours oral tablet, extended release (4 sources) Start: 11-12-2022 End: 11-07-2023 BuPROPion (Eqv-Wellbutrin SR) 150 mg/12 hours oral tablet, extended release Dose : 150 mg = 1 tab(s), Oral, BID, # 60 tab(s), 11 Refill(s), Pharmacy: [facility] #[id number], 178, cm, 11/12/22 11:25:00 EDT, Height, kg, 11/12/22 11:25:00 EDT, Dosing Weight Start Date: 11/12/22 Stop Date: 11/07/23 Status: Ordered Start: 09-16-2022 End: 03-15-2023 BuPROPion (Eqv-Wellbutrin SR ) 150 mg/12 hours oral tablet, extended release Dose : 150 mg = 1 tab(s), Oral, BID, # 180 tab(s), 1 Refill(s), Pharmacy: [facility] #[id number], 175, cm, 09/16/22 10:31:00 EDT, Height Start Date: 09/16/22 Stop Date: 03/15/23 Status: Ordered carvedilol 25 mg oral tablet (7 sources) alpha-Adrenergic Magui, beta-Adrenergic Magui Start: 11-12-2022 End: 11-07-2023 carvedilol 25 mg oral tablet Dose : 12.5 mg = 0.5 tab(s), Oral, BID, # 30 tab(s), 11 Refill(s), Pharmacy: [facility] #[id number], 178, cm, 11/12/22 11:25:00 EDT, Height, kg, 11/12/22 11:25:00 EDT, Dosing Weight Start Date: 11/12/22 Stop Date: 11/07/23 Status: Ordered Start: 10-11-2022 End: 11-10-2022 carvedilol 25 mg oral tablet Dose : 25 mg = 1 tab(s), Oral, BID, # 60 tab(s), 0 Refill(s) Start Date: 10/11/22 Stop Date: 11/10/22 Status: Ordered Start: 09-16-2022 End: 03-15-2023 carvedilol 12.5 mg oral tabl et Dose : 12.5 mg = 1 tab(s), Oral, BID, # 180 tab(s), 1 Refill(s), Pharmacy: [facility] #[id number], 175, cm, 09/16/22 10:31:00 EDT, Height Start Date: 09/16/22 Stop Date: 03/15/23 Status: Ordered Start: 06-27-2021 End: 08-26-2021 take 1 tablet by mouth twice daily carvedilol (COREG) 12.5 MG tablet Take 1 tablet by mouth 2 times daily 60 tablet 3 06/27/2021 08/26/2021 Active cetirizine hydrochloride 10 mg oral tablet (3 sources) Histamine-1 Receptor Antagonist Start: 11-12-2022 Zyrtec 10 mg oral tablet Dose : 10 mg = 1 tab(s), Oral, qDay, # 30 tab(s), 11 Refill(s), Pharmacy: [facility] #[id number], 178, cm, 11/12/22 11:25:00 EDT, Height, kg, 11/12/22 11:25:00 EDT, Dosing Weight Start Date: 11/12/22 Status: Ordered chlorhexidine gluconate 1.2 mg/ml mouthwash (2 sources) Start: 05-27-2024 End: 06-06-2024 chlorhexidine (PERIDEX) 0.12 % solution Swish and spit 15 mL 2 (two) times a day for 10 days. 300 mL 05/27/2024 06/06/2024 Active Continuous Blood Gluc Product Sales Engineer (FREESTYLE BETY 2 READER) ANJELICA (1 source) Start: 06-27-2021 Continuous Blo od Gluc Product Sales Engineer (FREESTYLE BETY 2 READER) ANJELICA Test q day 1 each 1 06/27/2021 Active Continuous Blood Gluc Sensor (FREESTYLE BETY 2 SENSOR) MISC (1 source) Start: 06-27-2021 Continuous Blo od Gluc Sensor (FREESTYLE BETY 2 SENSOR) MISC Test q day 1 each 11 06/27/2021 Active diphenhydramine-alumin ye-lozgzkeci-nbpgedovq ne-lidocaine (MAGIC MOUTHWASH) 96-589-428-40-200 mg/30 mL liquid suspension (2 sources) Start: 05-27-2024 End: 06-03-2024 diphenhydramine-alumi ppz-clbakbrlv-xnrogsp cone-lidocaine (MAGIC MOUTHWASH) 96-256-796-40-200 mg/30 mL liquid suspension Take 10 mL by mouth 4 (four) times a day if needed (dental pain) for up to 7 days. 119 mL 05/27/2024 06/03/2024 Active DME MISCellaneous (1 source) Start: 07-29-2023 DME MISCellane ous See Instructions, pulse ox, # 1 EA, 0 Refill(s), Bradycardia SOB (shortness of breath), 180, cm, 07/29/23 10:40:00 EDT, Height, 139.5, kg, 07/29/23 10:40:00 EDT, Dosing Weight Start Date: 07/29/23 Status: Ordered empagliflozin 25 mg oral tablet (5 sources) Sodium-Glucose Cotransporter 2 Inhibitor Start: 09-24-2022 End: 07-23-2024 Jardiance 25 mg oral tablet Dose : 25 mg = 1 tab(s), Oral, qAM, # 30 tab(s), 11 Refill(s), Pharmacy: [facility] #[id number], Type 2 diabetes mellitus with hyperglycemia, 180, cm, 07/29/23 10:40:00 EDT, Height, kg, 07/29/23 10:40:00 EDT, Dosing Weight Start Date: 07/29/23 Stop Date: 07/23/24 Status: Ordered FLUoxetine 60 mg oral tablet (5 sources) Serotonin Reuptake Inhibitor Start: 03-21-2023 End: 03-15-2024 FLUoxetine 60 mg oral tablet Dose : 60 mg = 1 tab(s), Oral, qAM, # 30 tab(s), 11 Refill(s), Pharmacy: [facility] #[id number], 180, cm, 03/21/23 10:52:00 EST, Height, kg, 03/21/23 10:52:00 EST, Dosing Weight Start Date: 03/21/23 Stop Date: 03/15/24 Status: Ordered Start: 11-12-2022 PROzac 40 mg o ral capsule Dose : 40 mg = 1 cap(s), Oral, qDay, # 30 cap(s), 11 Refill(s), Pharmacy: [facility] #[id number], 178, cm, 11/12/22 11:25:00 EDT, Height, kg, 11/12/22 11:25:00 EDT, Dosing Weight Start Date: 11/12/22 Status: Ordered Start: 09-24-2022 End: 09-19-2023 PROzac 20 mg oral capsule Do se : 20 mg = 1 cap(s), Oral, qDay, # 30 cap(s), 11 Refill(s), [facility]: [facility] #[id number], Anxiety, 178, cm, 09/24/22 9:34:00 EDT, Height Start Date: 09/24/22 Stop Date: 09/19/23 Status: Ordered glimepiride 4 mg oral tablet (1 source) Sulfonylurea Start: 06-27-2021 glimepiride (AMARYL) 4 MG tablet One q AM and PM 60 tablet 3 06/27/2021 Active glipiZIDE er 2.5 mg 24 hr extended release oral tablet (2 sources) Sulfonylurea Start: 03-21-2023 glipiZIDE 2.5 mg oral tablet, extended release Dose : 2.5 mg = 1 tab(s), Oral, qDay, Take with food, # 30 tab(s), 11 Refill(s), Pharmacy: [facility] #[id number], 180, cm, 03/21/23 10:52:00 EST, Height, kg, 03/21/23 10:52:00 EST, Dosing Weight Start Date: 03/21/23 Status: Ordered Handicap Placard MISC (1 source) Start: 12-01-2020 Handicap Placard MISC by Does not apply route DX: Duration: 5 years 1 each 0 12/01/2020 Active hydroCHLOROthiazide 12.5 mg / lisinopril 10 mg oral tablet (6 sources) Thiazide Diuretic, Angiotensin Converting Enzyme Inhibitor Start: 09-16-2022 End: 07-23-2024 take 1 tablet by mouth once daily hydrochlorothiaz tanya-lisinopril 12.5 mg-10 mg oral tablet Dose = 1 tab(s), Oral, qDay, # 30 tab(s), 11 Refill(s), Pharmacy: [facility] #[id number], 180, cm, 07/29/23 10:40:00 EDT, Height, kg, 07/29/23 10:40:00 EDT, Dosing Weight Start Date: 07/29/23 Stop Date: 07/23/24 Status: Ordered Start: 06-27-2021 take 1 tablet by nadja th once daily lisinopril-hydroCHLOROthiazide (PRINZIDE;ZESTORETIC) 20-12.5 MG per tablet Take 1 tablet by mouth daily 60 tablet 3 06/27/2021 Active hydrOXYzine hydrochloride 25 mg oral tablet (5 sources) Antihistamine Start: 09-24-2022 End: 09-26-2023 hydrOXYzine hydrochloride 25 mg oral tablet Dose : 25 mg = 1 tab(s), Oral, QID, PRN as needed for anxiety, # 60 tab(s), 2 Refill(s), 09/26/23 9:53:00 AM EDT, Pharmacy: [facility] #[id number], Anxiety, 178, cm, 09/24/22 9:34:00 EDT, Height Start Date: 09/24/22 Stop Date: 09/26/23 Status: Ordered ibuprofen 800 mg oral tablet (1 source) Nonsteroidal Anti-inflammatory Drug Start: 08-30-2019 take 1 tablet by mouth every eight hours as needed ibuprofen (ADVIL;MOTRIN) 800 MG tablet Take 800 mg by mouth every 8 hours as needed 0 08/30/2019 Active meloxicam 15 mg oral tablet (9 sources) Nonsteroidal Anti-inflammatory Drug Start: 11-12-2021 End: 01-25-2024 take 1 tablet by mouth once daily as needed meloxicam (MOBIC) 15 MG tablet Take 1 (one) tablet (15 mg total) by mouth daily as needed . 11/12/2021 Active Start: 06-27-2021 take 1 tablet by nadja th once daily as needed for pain meloxicam (MOBIC) 15 MG tablet Take 1 tablet by mouth daily as needed for Pain 30 tablet 3 06/27/2021 Active metFORMIN hydrochloride 1000 mg oral tablet (10 sources) Biguanide Start: 09-16-2022 End: 11-07-2023 metFORMIN 1000 mg oral tablet (IR) Dose : 1,000 mg = 1 tab(s), Oral, BID, # 60 tab(s), 11 Refill(s), Pharmacy: [facility] #[id number], 178, cm, 11/12/22 11:25:00 EDT, Height, kg, 11/12/22 11:25:00 EDT, Dosing Weight Start Date: 11/12/22 Stop Date: 11/07/23 Status: Ordered Start: 06-27-2021 metFORMIN (GLU COPHAGE) 500 MG tablet 2 (two) times a day . 06/27/2021 Active Start: 06-27-2021 metFORMIN (GLU COPHAGE) 500 MG tablet 2 bid 120 tablet 3 06/27/2021 Active Start: 03-29-2020 metFORMIN (GLU COPHAGE) 500 MG tablet 2 bid 120 tablet 3 03/29/2020 Active mirtazapine 30 mg oral table t (6 sources) Start: 04-15-2024 mirtazapine (R EMERON) 30 MG tablet 04/15/2024 Active Start: 04-02-2024 mirtazapine (R EMERON) 15 MG tablet 04/02/2024 Active polyethylene glycol 3350 85125 mg powder for oral solution (3 sources) Osmotic Laxative Start: 03-01-2021 polyethylene glycol (GLYCOLAX) 17 gram/dose powder Use as directed for Miralax / Gatorade Bowel Prep Kit 03/01/2021 Active prazosin 1 mg oral capsule (3 sources) alpha-Adrenergic Magui Start: 04-02-2024 prazosin (MINIPRESS) 1 MG capsule 04/02/2024 Active QUEtiapine 50 mg oral tablet (3 sources) Atypical Antipsychotic Start: 03-31-2024 QUEtiapine (SEROQUEL) 50 MG tablet 03/31/2024 Active ramelteon 8 mg oral tablet (3 sources) Melatonin Receptor Agonist Start: 04-15-2024 ramelteon (ROZEREM) 8 mg tablet 04/15/2024 Active sulfamethoxazole 800 mg / trimethoprim 160 mg oral tablet (2 sources) Dihydrofolate Reductase Inhibitor Antibacterial, Sulfonamide Antimicrobial Start: 05-28-2024 End: 06-07-2024 take 2 tablets by mouth twice daily sulfamethoxazole- trimethoprim (BACTRIM DS,SEPTRA DS) 800-160 mg per tablet Take 2 tablets by mouth 2 (two) times a day for 10 days. 40 tablet 05/28/2024 06/07/2024 Active Start: 05-28-2024 End: 05-28-2024 take 1 tablet by mouth once 1 tablet, oral, Once, On Fri05/28/24 at 1033, For 1 dose, Indication: Head/Ear/Eye/Nose/Throat Coverage topiramate 50 mg oral tablet (3 sources) Start: 04-02-2024 topiramate (TO PAMAX) 50 MG tablet 04/02/2024 Active Completed/Discontinued Medications Medication Drug Class(es) Dates Sig (Normalized) Sig (Original) amoxicillin 875 mg / clavulanate 125 mg oral tablet (4 sources) Penicillin-class Antibacterial Start: 05-28-2024 End: 05-28-2024 take 1 tablet by mouth once 1 tablet, oral, Once, On Fri05/28/24 at 1033, For 1 dose, Indication: Head/Ear/Eye/Nos e/Throat Coverage Start: 05-27-2024 End: 06-07-2024 take 1 tablet by mouth twice daily amoxicillin-clavulanate (AUGMENTIN) 875-125 mg per tablet Take 1 tablet by mouth 2 (two) times a day for 10 days. 20 tablet 05/28/2024 06/07/2024 Active Cardizem (1 source) Calcium Channel Magui Start: 10-11-2022 End: 10-11-2022 Cardizem Start: 10/11/22 11:30:00 AM EDT, Dose = 15 mg, = 3 mL, IV Push, Once, Stop: 10/11/22 11:41:24 AM EDT, 10/11/22 11:30:00 EDT Notes: Give BOLUS over 2 minutesPediatric patients: give BOLUS over 5 minutes ( Start Date: 10/11/22 Stop Date: 10/11/22 Status: Completed Problems Active Problems Problem Classification Problem Date Documented Date Episodic/Chronic Abdominal pain (1 source) Left lower quadrant pain; Translations: [Left groin pain] Episodic Alcohol-related disorders (4 sources) Alcohol abuse; Translations: [Alcohol abuse, uncomplicated] Onset: 02-05-2021 02-05-2021 Chronic Alcohol-related disorders (1 source) Alcohol use, unspecified with intoxication, uncomplicated; Translations: [Alcohol use, unspecified with intoxication, uncomplicated] Onset: 08-06-2024 Episodic Anxiety disorders (15 sources) Anxiety; Translations: [Panic attack] 09-24-2022 Chronic Calculus of urinary tract (5 sources) Kidney stone 12-12-2017 Episodic Cardiac dysrhythmias (6 sources) Atrial flutter; Translations: [Unspecified atrial flutter] Onset: 03-21-2023 10-11-2022 Chronic Cardiac dysrhythmias (4 sources) Tachycardia; Translations: [Bradycardia] 09-16-2022 Episodic Diabetes mellitus with complications (16 sources) Hyperglycemia due to type 2 diabetes mellitus; Translations: [Type 2 diabetes mellitus with hyperglycemia] Onset: 09-24-2022 Chronic Diabetes mellitus without complication (5 sources) Type 2 diabetes mellitus without complication; Translations: [Type 2 diabetes mellitus without complications] Onset: 03-29-2020 03-29-2020 Chronic Disorders of lipid metabolism (1 source) Hypercholesterolemia; Translations: [Pure hypercholesterolemia, unspecified] Onset: 02-05-2021 02-05-2021 Chronic Disorders of teeth and jaw (4 sources) Toothache; Translations: [Other specified disorders of teeth and supporting structures] Onset: 05-27-2024 05-27-2024 Episodic Essential hypertension (7 sources) Essential hypertension; Translations: [Essential (primary) hypertension] Onset: 03-29-2020 03-29-2020 Chronic Fluid and electrolyte disorders (1 source) Hyperkalemia 07-29-2023 Episodic Malaise and fatigue (1 source) Fatigue 07-29-2023 Episodic Open wounds of extremities (10 sources) Open wound of left great toe; Translations: [Unspecified open wound of left great toe without damage to nail, subsequent encounter] Onset: 04-01-2024 04-26-2024 Episodic Open wounds of extremities (1 source) Unspecified open wound, right foot, initial encounter; Translations: [Unspecified open wound, right foot, initial encounter] Onset: 09-11-2024 Episodic Osteoarthritis (7 sources) Osteoarthritis; Translations: [Unilateral primary osteoarthritis, unspecified hip] Onset: 04-01-2024 09-16-2022 Chronic Other male genital disorders (5 sources) Impotence 09-16-2022 Chronic Other nervous system disorders (2 sources) Peripheral nerve disease 03-21-2023 Chronic Other non-traumatic joint disorders (1 source) Hip pain 07-29-2023 Episodic Other non-traumatic joint disorders (2 sources) Pain in left hip; Translations: [Pain in left hip] Onset: 04-01-2024 Episodic Other nutritional; endocrine; and metabolic disorders (7 sources) Body mass index 40+ - severely obese; Translations: [Morbid (severe) obesity due to excess calories] Onset: 03-29-2020 03-29-2020 Chronic Other nutritional; endocrine; and metabolic disorders (5 sources) Morbid obesity 09-16-2022 Chronic Other nutritional; endocrine; and metabolic disorders (3 sources) Morbid (severe) obesity due to excess calories; Translations: [Morbid (severe) obesity due to excess calories] Onset: 03-21-2023 Chronic Other nutritional; endocrine; and metabolic disorders (3 sources) Body mass index (BMI) 40.0-44.9, adult; Translations: [Body mass index [BMI] 40.0-44.9, adult] Onset: 03-21-2023 Chronic Residual codes; unclassified (5 sources) Insomnia 11-11-2018 Episodic Residual codes; unclassified (1 source) Tobacco use; Translations: [Tobacco use] Onset: 08-06-2024 Episodic Spondylosis; intervertebral disc disorders; other back problems (5 sources) Chronic low back pain; Translations: [Lumbar radiculopathy] Onset: 12-01-2020 Episodic Substance-related disorders (9 sources) Smoker; Translations: [Nicotine dependence, unspecified, uncomplicated] Onset: 03-29-2020 03-29-2020 Chronic Comment on above: 1ppd since age 34 Unclassified (2 sources) Hypercoagulable state due to atrial fibrillation 03-21-2023 Unclassified (1 source) Low back pain, unspecified; Translations: [Low back pain, unspecified] Onset: 04-01-2024 Unclassified (1 source) Patient's noncompliance with other medical treatment and regimen due to unspecified reason; Translations: [Patient's noncompliance with other medical treatment and regimen due to unspecified reason] Onset: 08-06-2024 Unclassified (1 source) Homelessness unspecified; Translations: [Homelessness unspecified] Onset: 08-06-2024 Unclassified (1 source) Alcohol use, unspecified with withdrawal, unspecified; Translations: [Alcohol use, unspecified with withdrawal, unspecified] Onset: 03-29-2024 Past or Other Problems Problem Classification Problem Date Documented Da te Episodic/Chronic Residual codes; unclassified (1 source) Family history of cancer of colon; Translations: [Family history of malignant neoplasm of digestive organs] Onset: 02-05-2021 02-05-2021 Episodic Unclassified (1 source) Low back pain, unspecified; Translations: [Low back pain, unspecified] Onset: 04-01-2024 Results Test Name Value Interpretation Reference Range Facility Emergency Department Summary on 09-06-2024 Emergency Department Summary [facility] Medical Records Department [address] [place] [id number] Emergency Department Summary 09/06/24 MR#: [id number] Acct: [id number] Name: DAYNE MEYER Rep #: [id number] : 1975 48 From: Brian Felix MD PCP: Care Physician,No Primary Status:REG ER Location: ED HPI History of Present Illness Chief Complaint: Wound Narrative Narrative: 48-year-old male past medical history of diabetes and diabetic neuropathy of his bilateral feet presents with bleeding from his feet that began today. He was at the public pool, came out of the water, and was walking to the front office clerk when it was noticed that he had bleeding from his bilateral feet. He states he was unsure if he stepped on anything like a piece of plastic or glass. No recent fevers or chills, no nausea or vomiting, no other symptoms. [facility] Medical History Morbid obesity with BMI of 40.0-44.9, adult Homeless single person Tobacco abuse Medical non-compliance Diabetes mellitus, type 2 Cannabis abuse Acute alcohol intoxication Desire for detoxification Alcohol abuse Allergic rhinitis Asthma Anxiety and depression Chronic pain Kidney stones Restless legs Hypertension Tobacco use Alcohol abuse Degeneration of spine PTSD (post-traumatic stress disorder) Diabetes Home Medications ???Medication ???Instructions ???Recorded ???Last Taken ???Type albuterol sulfate 90 mcg/actuation 1 puff inhalation Q4H PRN PRN Unknown History aerosol inhaler wheezing apixaban 5 mg tablet (Eliquis) 5 mg PO BID 11/10/23 Unknown Histo ry atorvastatin 10 mg tablet 10 mg PO DAILY 11/10/23 Unknown Hi story carvedilol 25 mg tablet 12.5 mg PO BID 11/10/23 Unknown Hi story cetirizine 10 mg tablet 10 mg PO DAILY 11/10/23 Unknown Hi story fluoxetine 60 mg tablet 60 mg PO DAILY 11/10/23 Unknown Hi story glipizide 2.5 mg tablet, extended 2.5 mg PO DAILY 11/10/23 Unknown History release 24 hr lisinopril 10 1 tab PO DAILY 11/10/23 Unknown Hi story mg-hydrochlorothiazid e 12.5 mg tablet meloxicam 15 mg tablet 15 mg PO DAILY 11/10/23 Unknown Hi story metformin 1,000 mg tablet 1,000 mg PO BID 11/10/23 Unknown H istory empagliflozin 25 mg tablet 25 mg PO DAILY 03/26/24 Unknown Hi story (Jardiance) gabapentin 300 mg capsule 300 mg PO TID 03/26/24 Unknown His tory Allergy/AdvReac Type Severity Reaction Status Date / Time trazodone (trazamine) AdvReac Mild Other Verified 08/03/24 22:22 Family History Mother Stomach cancer Father No problems noted. Surgical History History of carpal tunnel surgery Social History household members: none housing: other details: Living in his vehicle. Smoking Status: Current every day smoker tobacco type: cigarettes alcohol intake: current alcohol intake frequency: 3 or more drinks per day details: 4-pints beer daily. substance use type: does not use ROS ROS ED ROS Narrative Review of systems positive for bleeding from bilateral feet. He suspects bleeding from the bottom of his left foot which he cannot visualize, and a small cut on the right side. Denies other bleeding diathesis. No recent fevers or chills, no nausea or vomiting, no abdominal pain or other symptoms. EXAM Physical Exam Narrative Exam Narrative: Afebrile. Vital signs noted. Nontoxic-appearing. Cardiovascular examination regular rate and rhythm. Lungs are clear to auscultation bilaterally. Abdomen is soft, obese, nontender, without guarding or rebound. Positive bowel sounds. Inspection of the bottom of the left foot does reveal an unroofed blister on the plantar aspect of the lateral left forefoot. No pulsatile bleeding. On the right foot, there is dried blood on the toes, and a small blister on the plantar aspect of the right lateral forefoot with small abrasion laterally without active bleeding. No purulent drainage. Const Vital Signs: 09/06/24 17:25 Temperature 97 F L Temperature Source Temporal Pulse Rate 83 Respiratory Rate 14 Blood Pressure 152/92 H Blood Pressure Mean 112 Pulse Ox 98 Oxygen Delivery Method Room Air MDM MDM MDM Narrative Medical decision making narrative: I do not feel that any of these open areas require suturing. There is slight capillary bleeding from the unroofed left foot blister on the plantar aspect. His wounds will be cleansed and Vaseline gauze dressing applied. I do not feel he requires antibiotics. I do not feel he requires laboratory testing as well. However, patient states that he does not have a primary care provider, and he is running out of (more content not included)... Normal [facility] Bedside Glucoseon 08-05-2024 FINGERSTICK GLU 241 mg/dL High 74-106 [facility] Comment on above: Result Comment: RIP MACIEL OF PATIENT CARE PER NURSING PROTOCOL Performed By: #### L 501.080 #### [facility] [address] [place], [address] FINGERSTICK GLU 297 mg/dL High [address] [place] [address] Comment on above: Result Comment: RIP GEMENT OF PATIENT CARE PER NURSING PROTOCOL Performed By: #### L 501.080 #### [facility] [address] [place], [address] FINGERSTICK GLU 308 mg/dL High [address] [place] [address] Comment on above: Result Comment: RIP GEMENT OF PATIENT CARE PER NURSING PROTOCOL Performed By: #### L 501.080 #### [facility] [address] [place], [address] Alcohol, Blood (Medical)-Ser umon 08-04-2024 SERUM ETOH 38.0 mg/dL High <=10.0 [facility] Comment on above: Result Comment: This test is for medical purposes only. The legal definition of intoxication varies according to local law. Performed By: #### L 501.9100 #### [facility] [address] [place], [address] [facility] FINGERSTICK GLU 291 mg/dL High [address] [place] [address] Comment on above: Result Comment: RIP GEMENT OF PATIENT CARE PER NURSING PROTOCOL Performed By: #### L 505.5000, L501.9100, L500.2500, L100.0100 #### [facility] [address] [place], [address] FINGERSTICK GLU 299 mg/dL High [address] [place] [address] Comment on above: Result Comment: RIP GEMENT OF PATIENT CARE PER NURSING PROTOCOL Performed By: #### L 505.5000, L501.9100, L500.2500, L100.0100 #### [facility] [address] [place], [address] FINGERSTICK GLU 298 mg/dL High [address] [place] [address] Comment on above: Result Comment: RIP GEMENT OF PATIENT CARE PER NURSING PROTOCOL Performed By: #### L 501.080 #### [facility] [address] [place], [address] FINGERSTICK GLU 263 mg/dL High 74-106 [facility] Comment on above: Result Comment: RIP GEMENT OF PATIENT CARE PER NURSING PROTOCOL Performed By: #### L 505.5000, L501.9100, L500.2500, L100.0100 #### [facility] [address] [place], [address] CBC W/Diff, Automatedon 05-2 Absolute Lymph 2.83 X10 3/uL Normal 0.83-4.51 [facility] Comment on above: Performed By: #### L 505.5000, L501.9100, L500.2500, L100.0100 #### [facility] [address] [place], [address] Absolute Neut 2.7 X10 3/uL Normal 2.0-7.7 [facility] Comment on above: Performed By: #### L 505.5000, L501.9100, L500.2500, L100.0100 #### [facility] [address] [place], [address] Basophils/100 WBC (Bld) 0.6 % Normal 0-1 [facility] Comment on above: Performed By: #### L 505.5000, L501.9100, L500.2500, L100.0100 #### [facility] [address] [place], [address] Eosinophils/100 WBC (Bld) 3.1 % Normal 0-5 [facility] Comment on above: Performed By: #### L 505.5000, L501.9100, L500.2500, L100.0100 #### [facility] [address] [place], [address] Erythrocyte distribution width (RBC) [Ratio] 14.3 % Normal 11.6-14.6 [facility] Comment on above: Performed By: #### L 505.5000, L501.9100, L500.2500, L100.0100 #### [facility] [address] [place], [address] Hematocrit (Bld) [Volume fraction] 43.9 % Normal 40-54 [facility] Comment on above: Performed By: #### L 505.5000, L501.9100, L500.2500, L100.0100 #### [facility] [address] [place], [address] Hemoglobin (Bld) [Mass/Vol] 15.0 g/dL Normal 13.0-16.5 [facility] Comment on above: Performed By: #### L 505.5000, L501.9100, L500.2500, L100.0100 #### [facility] [address] [place], [address] IG% 0.500 Normal 0.0-0.9 [facility] Comment on above: Result Comment: IG% - Immature Granulocytes (promyelocytes, myelocytes and metamyelocytes) > 1% indicates that a LEFT SHIFT is Present. Performed By: #### L 505.5000, L501.9100, L500.2500, L100.0100 #### [facility] [address] [place], [address] Lymphocytes/100 WBC (Bld) 44.4 % High 19-41 [facility] Comment on above: Performed By: #### L 505.5000, L501.9100, L500.2500, L100.0100 #### [facility] [address] [place], [address] MCH (RBC) [Entitic mass] 31.1 pg Normal 27.0-32.0 [facility] Comment on above: Performed By: #### L 505.5000, L501.9100, L500.2500, L100.0100 #### [facility] [address] [place], [address] MCHC (RBC) [Mass/Vol] 34.2 g/dL Normal 32-36 [facility] Comment on above: Performed By: #### L 505.5000, L501.9100, L500.2500, L100.0100 #### [facility] [address] [place], [address] MCV (RBC) [Entitic vol] 90.9 fL Normal 80-94 [facility] Comment on above: Performed By: #### L 505.5000, L501.9100, L500.2500, L100.0100 #### [facility] [address] [place], [address] Monocytes/100 WBC (Bld) 8.6 % Normal 0-10 [facility] Comment on above: Performed By: #### L 505.5000, L501.9100, L500.2500, L100.0100 #### [facility] [address] [place], [address] Neutrophils/100 WBC (Bld) 42.8 % Low 47-70 [facility] Comment on above: Performed By: #### L 505.5000, L501.9100, L500.2500, L100.0100 #### [facility] [address] [place], [address] Nucleated RBC (Bld) [#/Vol] 0 10*3/uL Normal 0-5 [facility] Comment on above: Performed By: #### L 505.5000, L501.9100, L500.2500, L100.0100 #### [facility] [address] [place], [address] Platelet mean volume (Bld) [Entitic vol] 9.5 fL Normal 6.2-12.0 [facility] Comment on above: Performed By: #### L 505.5000, L501.9100, L500.2500, L100.0100 #### [facility] [address] [place], [address] Platelets (Bld) [#/Vol] 232 10*3/uL Normal 150-450 [facility] Comment on above: Performed By: #### L 505.5000, L501.9100, L500.2500, L100.0100 #### [facility] [address] [place], [address] RBC (Bld) [#/Vol] 4.83 10*6/uL Normal 4.6-6.2 [facility] Comment on above: Performed By: #### L 505.5000, L501.9100, L500.2500, L100.0100 #### [facility] [address] [place], [address] RDW SD 47.0 fl High 35.1-43.9 [facility] Comment on above: Performed By: #### L 505.5000, L501.9100, L500.2500, L100.0100 #### [facility] [address] [place], [address] WBC (Bld) [#/Vol] 6.4 10*3/uL Normal 4.4-11.0 [facility] Comment on above: Performed By: #### L 505.5000, L501.9100, L500.2500, L100.0100 #### [facility] [address] [place], [address] Comprehensive Metabolic Prof [facility] 08-04-2024 Albumin [Mass/Vol] 3.5 g/dL Normal 3.5-5.0 [facility] Comment on above: Performed By: #### L 505.5000, L501.9100, L500.2500, L100.0100 #### [facility] [address] [place], [address] Albumin/Globulin [Mass ratio] 0.9 {ratio} Normal 0.9-2.4 [facility] Comment on above: Performed By: #### L 505.5000, L501.9100, L500.2500, L100.0100 #### [facility] [address] [place], [address] ALK PHOS 104 U/L Normal 40-129 [facility] Comment on above: Performed By: #### L 505.5000, L501.9100, L500.2500, L100.0100 #### [facility] [address] [place], [address] ALT [Catalytic activity/Vol] 40 U/L Normal <=46 [facility] Comment on above: Performed By: #### L 505.5000, L501.9100, L500.2500, L100.0100 #### [facility] [address] [place], [address] AST [Catalytic activity/Vol] 42 U/L High <=37 [facility] Comment on above: Performed By: #### L 505.5000, L501.9100, L500.2500, L100.0100 #### [facility] [address] [place], [address] Bilirubin [Mass/Vol] 0.25 mg/dL Normal 0.00-1.30 [facility] Comment on above: Performed By: #### L 505.5000, L501.9100, L500.2500, L100.0100 #### [facility] [address] [place], [address] BUN/CRE 10.1 RATIO Normal 10-20 [facility] Comment on above: Performed By: #### L 505.5000, L501.9100, L500.2500, L100.0100 #### [facility] [address] [place], [address] Calcium [Mass/Vol] 9.0 mg/dL Normal 7.6-11.0 [facility] Comment on above: Performed By: #### L 505.5000, L501.9100, L500.2500, L100.0100 #### [facility] [address] [place], [address] Chloride [Moles/Vol] 103 mmol/L Normal 98-108 [facility] Comment on above: Performed By: #### L 505.5000, L501.9100, L500.2500, L100.0100 #### [facility] [address] [place], [address] CO2 [Moles/Vol] 18.7 mmol/L Low 21.0-32.0 [facility] Comment on above: Performed By: #### L 505.5000, L501.9100, L500.2500, L100.0100 #### [facility] [address] [place], [address] Creatinine [Mass/Vol] 0.74 mg/dL Normal 0.70-1.20 [facility] Comment on above: Performed By: #### L 505.5000, L501.9100, L500.2500, L100.0100 #### [facility] [address] [place], [address] ECRCL 179.71 ml/min Normal 50-250 [facility] Comment on above: Performed By: #### L 505.5000, L501.9100, L500.2500, L100.0100 #### [facility] [address] [place], [address] GAP 18 High 5-15 [facility] Comment on above: Performed By: #### L 505.5000, L501.9100, L500.2500, L100.0100 #### [facility] [address] [place], [address] GFR/1.73 sq M.predicted among non-blacks MDRD (S/P/Bld) [Vol rate/Area] 111 mL/min/{1.73_m2} Normal >60 [facility] Comment on above: Result Comment: mL/m in/1.73m2 CKD-EPI Creatinine Equation (2020) Performed By: #### L 505.5000, L501.9100, L500.2500, L100.0100 #### [facility] [address] [place], [address] Globulin (S) [Mass/Vol] 3.7 g/dL Normal 2.2-4.2 [facility] Comment on above: Performed By: #### L 505.5000, L501.9100, L500.2500, L100.0100 #### [facility] [address] [place], [address] Glucose [Mass/Vol] 252 mg/dL High 70-99 [facility] Comment on above: Performed By: #### L 505.5000, L501.9100, L500.2500, L100.0100 #### [facility] [address] [place], [address] Potassium [Moles/Vol] 3.6 mmol/L Normal 3.3-5.1 [facility] Comment on above: Performed By: #### L 505.5000, L501.9100, L500.2500, L100.0100 #### [facility] [address] [place], [address] Sodium [Moles/Vol] 139 mmol/L Normal 133-145 [facility] Comment on above: Performed By: #### L 505.5000, L501.9100, L500.2500, L100.0100 #### [facility] [address] [place], [address] T PROT 7.1 g/dL Normal 5.9-8.4 [facility] Comment on above: Performed By: #### L 505.5000, L501.9100, L500.2500, L100.0100 #### [facility] [address] [place], [address] Urea nitrogen [Mass/Vol] 8 mg/dL Normal 4-19 [facility] Comment on above: Performed By: #### L 505.5000, L501.9100, L500.2500, L100.0100 #### [facility] [address] [place], [address] H AND P Exam - [facility] 08-04-2024 H&P Exam - Hospitalist [facility] Medical Records Department [address] [place] [address] H P Exam - Hospitalist 08/04/24 0047 MR#: [id number] Acct: [id number] Name: DAYNE MEEYR Rep #: [id number] : 1975 48 From: Jesse Hernandez DO PCP: Care Physician,No Primary Status:ADM IN Location: [facility] [id number] [facility] - General General Date of Admission: 08/03/24 Date of Service: 08/04/24 Chief Complaint: Wants EtOH Detox. HPI Narrative DAYNE MEYER, is a 48 M with a past medical history of essential hypertension; on carvedilol and lisinopril-hydrochlor othiazide, hyperlipidemia; on atorvastatin, tobacco abuse, morbid obesity; with BMI of 42.4 this admission, DM-2; of unknown control on empagliflozin, glipizide and metformin BID, diabetic neuropathy; on gabapentin TID, history of possible hypercoagulable state; on apixaban, history of asthma; on prn albuterol, allergic rhinitis; on cetirizine, RLS, depression with anxiety and PTSD; on fluoxetine, CTS; s/p release, OA; with DDD and chronic pain on meloxicam, homeless; living out of his vehicle, medical noncompliance and history or admission here from March 26, 2024 to March 29, 2024 for EtOH Detox and Chronic EtOH Abuse; with patient admitting to drinking 7 pints of beer daily pluw whiskey who presents to [facility] ER complaining of wanting help with EtOH detoxification. Mr. Meyer reports his symptoms began a few hours prior to admission when he decided he wanted help with EtOH detox after he had been drinking throughout the day. He went on to state he has not been taking his prescribed medications or checking his blood glucose. He denies hallucination, visual disturbances, seizures, tremors, recent illness, fever, chills, nausea, vomiting, diarrhea, constipation, abdominal pain, chest pain, palpitations, heart racing, LE edema, SOB, headache or rash. In the ER he was noted to have a BRADY of 225 mg/dL present on admission with a UDS positive for cannabinoids consistent with Acute EtOH Intoxication in the setting of Chronic EtOH Abuse with impeding EtOH withdrawal complicated by additional laboratory evidence of Hyperglycemia of 269 mg/dL present on admission due to Medical Noncompliance and he was then admitted to the general medical floor for ongoing care for a stay that is expected to extend beyond 2 midnights. [facility] Medical History Allergic rhinitis Asthma Anxiety and depression Chronic pain Kidney stones Restless legs Hypertension Tobacco use Alcohol abuse Degeneration of spine PTSD (post-traumatic stress disorder) Diabetes Home Medications ???Medication ???Instructions ???Recorded ???Last Taken ???Type albuterol sulfate 90 mcg/actuation 1 puff inhalation Q4H PRN PRN Unknown History aerosol inhaler wheezing apixaban 5 mg tablet (Eliquis) 5 mg PO BID 11/10/23 Unknown Histo ry atorvastatin 10 mg tablet 10 mg PO DAILY 11/10/23 Unknown Hi story carvedilol 25 mg tablet 12.5 mg PO BID 11/10/23 Unknown Hi story cetirizine 10 mg tablet 10 mg PO DAILY 11/10/23 Unknown Hi story fluoxetine 60 mg tablet 60 mg PO DAILY 11/10/23 Unknown Hi story glipizide 2.5 mg tablet, extended 2.5 mg PO DAILY 11/10/23 Unknown History release 24 hr lisinopril 10 1 tab PO DAILY 11/10/23 Unknown Hi story mg-hydrochlorothiazid e 12.5 mg tablet meloxicam 15 mg tablet 15 mg PO DAILY 11/10/23 Unknown Hi story metformin 1,000 mg tablet 1,000 mg PO BID 11/10/23 Unknown H istory empagliflozin 25 mg tablet 25 mg PO DAILY 03/26/24 Unknown Hi story (Jardiance) gabapentin 300 mg capsule 300 mg PO TID 03/26/24 Unknown His tory Allergy/AdvReac Type Severity Reaction Status Date / Time trazodone (trazamine) AdvReac Mild Other Verified 08/03/24 22:22 Family History Mother Stomach cancer Father No problems noted. Surgical History History of carpal tunnel surgery Social History household members: none housing: other details: Living in his vehicle. Smoking Status: Current every day smoker tobacco type: cigarettes alcohol intake: current alcohol intake frequency: 3 or more drinks per day details: 4-pints beer daily. substance use type: does not use ROS ROS Narrative Review of Systems: Constitutional: Patient denies fever or chills. Eyes: Patient denies changes in vision or discharge from eyes. ENT: Patient denies runny nose, sore throat or ear pain. Resp: Patient denies SOB or cough. CV: Patient denies chest pain, palpitations, heart racing or LE edema. GI: Patient denies abdominal pain, nausea, vomiting, diarrhea or constipation. : (more content not included)... Normal [facility] Hemoglobin A1con 08-04-2024 HbA1c (Bld) [Mass fraction] 10.9 % High <=5.6 [facility] Comment on above: Order Comment: NURSE LEBRON SAID IT IS OKAY TO DO WITH MORNING LABWORK Result Comment: Norm al < 5.7 % Prediabetic 5.7 - 6.4 % Diabetic >or= 6.5 % Please note range changes. Performed By: #### L 501.5151, L501.9594 #### [facility] [address] [place], [address] Lipid Profileon 08-04-2024 CHOL:HDL 4.88 Normal [facility] Comment on above: Performed By: #### L 505.5000, L501.9100, L500.2500, L100.0100 #### [facility] [address] [place], [address] Cholesterol [Mass/Vol] 124 mg/dL Normal <=200 [facility] Comment on above: Result Comment: Chol esterol level, Desirable <200 mg/dL Borderline high cholesterol 200-239 mg/dL High cholesterol >=240 mg/dL Recommendations of the NCEP Adult Treatment Panel for the following risk-cutoff thresholds for the [place] population. Performed By: #### L 505.5000, L501.9100, L500.2500, L100.0100 #### [facility] [address] [place], [address] Cholesterol in HDL [Mass/Vol] 25 mg/dL Low [facility] Comment on above: Result Comment: Tosin onal Cholesterol Education Program (NCEP) guidelines: <40 mg/dL: Low HDL-cholesterol (major risk factor for CHD) >= 60 mg/dL: High HDL-cholesterol (negative risk factor for CHD) HDL-cholesterol is affected by a number of factors, e.g. smoking, exercise, hormones, sex and age. Performed By: #### L 505.5000, L501.9100, L500.2500, L100.0100 #### [facility] [address] [place], [address] Cholesterol in LDL [Mass/Vol] 60 mg/dL Normal [facility] Comment on above: Result Comment: Bord jttyzb=810-781 mg/dL Higher Jdsa=933 mg/dL or greater Performed By: #### L 505.5000, L501.9100, L500.2500, L100.0100 #### [facility] [address] [place], [address] Cholesterol in VLDL [Mass/Vol] 38 mg/dL Normal 5-40 [facility] Comment on above: Performed By: #### L 505.5000, L501.9100, L500.2500, L100.0100 #### [facility] [address] [place], [address] Triglyceride [Mass/Vol] 192 mg/dL Normal [facility] Comment on above: Result Comment: The drugs N-Acetylcysteine and Metamizole may falsely depress this assay. Normal range: <150 mg/dL Borderline High: 150-199 mg/dL High: 200-499 mg/dL Very High: >500 mg/dL Performed By: #### L 505.5000, L501.9100, L500.2500, L100.0100 #### [facility] [address] [place], [address] Magnesiumon 08-04-2024 Magnesium [Mass/Vol] 2.2 mg/dL Normal 1.5-2.2 [facility] Comment on above: Performed By: #### L 501.080 #### [facility] [address] [place], [address] Phosphoruson 08-04-2024 Phosphate [Mass/Vol] 3.8 mg/dL Normal 2.7-4.5 [facility] Comment on above: Performed By: #### L 505.5000, L501.9100, L500.2500, L100.0100 #### [facility] [address] [place], [address] Prothrombin Time w/INRon INR Coag (PPP) [Relative time] 1.0 {INR} Normal [facility] Comment on above: Performed By: #### L 505.5000, L501.9100, L500.2500, L100.0100 #### [facility] [address] [place], [address] PT Coag (PPP) [Time] 13.2 s Normal 11.7-14.9 [facility] Comment on above: Performed By: #### L 505.5000, L501.9100, L500.2500, L100.0100 #### [facility] [address] [place], [address] Thyroid Stim Hormone (TSH)on 08-04-2024 TSH 0.838 uIU/mL Normal 0.300-4.200 [facility] Comment on above: Order Comment: NURSE LEBRON SAID IT IS OKAY TO DO WITH MORNING LABWORK Performed By: #### L 501.9985, L501.9520 #### [facility] [address] [place], [address] Alcohol, Blood (Medical)-Ser umon 08-03-2024 SERUM ETOH 225.0 mg/dL High <=10.0 [facility] Comment on above: Result Comment: This test is for medical purposes only. The legal definition of intoxication varies according to local law. Performed By: #### L 501.080 #### [facility] [address] [place], [address] CBC W/Diff, Automatedon 07-16 0-2024 Absolute Lymph 3.02 X10 3/uL Normal 0.83-4.51 [facility] Comment on above: Performed By: #### L 501.080 #### [facility] [address] [place], [address] Absolute Neut 5.0 X10 3/uL Normal 2.0-7.7 [facility] Comment on above: Performed By: #### L 501.080 #### [facility] [address] [place], [address] Basophils/100 WBC (Bld) 0.7 % Normal 0-1 [facility] Comment on above: Performed By: #### L 501.080 #### [facility] [address] [place], [address] Eosinophils/100 WBC (Bld) 2.1 % Normal 0-5 [facility] Comment on above: Performed By: #### L 501.080 #### [facility] [address] [place], [address] Erythrocyte distribution width (RBC) [Ratio] 14.2 % Normal 11.6-14.6 [facility] Comment on above: Performed By: #### L 501.080 #### [facility] [address] [place], [address] Hematocrit (Bld) [Volume fraction] 47.1 % Normal 40-54 [facility] Comment on above: Performed By: #### L 501.080 #### [facility] [address] [place], [address] Hemoglobin (Bld) [Mass/Vol] 16.4 g/dL Normal 13.0-16.5 [facility] Comment on above: Performed By: #### L 501.080 #### [facility] [address] [place], [address] IG% 0.300 Normal 0.0-0.9 [facility] Comment on above: Result Comment: IG% - Immature Granulocytes (promyelocytes, myelocytes and metamyelocytes) > 1% indicates that a LEFT SHIFT is Present. Performed By: #### L 501.080 #### [facility] [address] [place], [address] Lymphocytes/100 WBC (Bld) 33.4 % Normal 19-41 [facility] Comment on above: Performed By: #### L 501.080 #### [facility] [address] [place], [address] MCH (RBC) [Entitic mass] 31.2 pg Normal 27.0-32.0 [facility] Comment on above: Performed By: #### L 501.080 #### [facility] [address] [place], [address] MCHC (RBC) [Mass/Vol] 34.8 g/dL Normal 32-36 [facility] Comment on above: Performed By: #### L 501.080 #### [facility] [address] [place], [address] MCV (RBC) [Entitic vol] 89.5 fL Normal 80-94 [facility] Comment on above: Performed By: #### L 501.080 #### [facility] [address] [place], [address] Monocytes/100 WBC (Bld) 8.6 % Normal 0-10 [facility] Comment on above: Performed By: #### L 501.080 #### [facility] [address] [place], [address] Neutrophils/100 WBC (Bld) 54.9 % Normal 47-70 [facility] Comment on above: Performed By: #### L 501.080 #### [facility] [address] [place], [address] Nucleated RBC (Bld) [#/Vol] 0 10*3/uL Normal 0-5 [facility] Comment on above: Performed By: #### L 501.080 #### [facility] [address] [place], [address] Platelet mean volume (Bld) [Entitic vol] 9.1 fL Normal 6.2-12.0 [facility] Comment on above: Performed By: #### L 501.080 #### [facility] [address] [place], [address] Platelets (Bld) [#/Vol] 254 10*3/uL Normal 150-450 [facility] Comment on above: Performed By: #### L 501.080 #### [facility] [address] [place], [address] RBC (Bld) [#/Vol] 5.26 10*6/uL Normal 4.6-6.2 [facility] Comment on above: Performed By: #### L 501.080 #### [facility] [address] [place], [address] RDW SD 46.0 fl High 35.1-43.9 [facility] Comment on above: Performed By: #### L 501.080 #### [facility] [address] [place], [address] WBC (Bld) [#/Vol] 9.1 10*3/uL Normal 4.4-11.0 [facility] Comment on above: Performed By: #### L 501.080 #### [facility] [address] [place], [address] Comprehensive Metabolic Prof ilon 08-03-2024 Albumin [Mass/Vol] 4.0 g/dL Normal 3.5-5.0 [facility] Comment on above: Performed By: #### L 501.080 #### [facility] [address] [place], [address] Albumin/Globulin [Mass ratio] 1.0 {ratio} Normal 0.9-2.4 [facility] Comment on above: Performed By: #### L 501.080 #### [facility] [address] [place], [address] ALK PHOS 124 U/L Normal 40-129 [facility] Comment on above: Performed By: #### L 501.080 #### [facility] [address] [place], [address] ALT [Catalytic activity/Vol] 23 U/L Normal <=46 [facility] Comment on above: Performed By: #### L 501.080 #### [facility] [address] [place], [address] AST [Catalytic activity/Vol] 21 U/L Normal <=37 [facility] Comment on above: Performed By: #### L 501.080 #### [facility] [address] [place], [address] Bilirubin [Mass/Vol] 0.29 mg/dL Normal 0.00-1.30 [facility] Comment on above: Performed By: #### L 501.080 #### [facility] [address] [place], [address] BUN/CRE 11.9 RATIO Normal 10-20 [facility] Comment on above: Performed By: #### L 501.080 #### [facility] [address] [place], [address] Calcium [Mass/Vol] 9.5 mg/dL Normal 7.6-11.0 [facility] Comment on above: Performed By: #### L 501.080 #### [facility] [address] [place], [address] Chloride [Moles/Vol] 99 mmol/L Normal 98-108 [facility] Comment on above: Performed By: #### L 501.080 #### [facility] [address] [place], [address] CO2 [Moles/Vol] 20.4 mmol/L Low 21.0-32.0 [facility] Comment on above: Performed By: #### L 501.080 #### [facility] [address] [place], [address] Creatinine [Mass/Vol] 0.79 mg/dL Normal 0.70-1.20 [facility] Comment on above: Performed By: #### L 501.080 #### [facility] [address] [place], [address] ECRCL 170.07 ml/min Normal 50-250 [facility] Comment on above: Performed By: #### L 501.080 #### [facility] [address] [place], [address] GAP 16 High 5-15 [facility] Comment on above: Performed By: #### L 501.080 #### [facility] [address] [place], [address] GFR/1.73 sq M.predicted among non-blacks MDRD (S/P/Bld) [Vol rate/Area] 109 mL/min/{1.73_m2} Normal >60 [facility] Comment on above: Result Comment: mL/m in/1.73m2 CKD-EPI Creatinine Equation (2020) Performed By: #### L 501.080 #### [facility] [address] [place], [address] Globulin (S) [Mass/Vol] 4.2 g/dL Normal 2.2-4.2 [facility] Comment on above: Performed By: #### L 501.080 #### [facility] [address] [place], [address] Glucose [Mass/Vol] 269 mg/dL High 70-99 [facility] Comment on above: Performed By: #### L 501.080 #### [facility] [address] [place], [address] Potassium [Moles/Vol] 3.8 mmol/L Normal 3.3-5.1 [facility] Comment on above: Performed By: #### L 501.080 #### [facility] [address] [place], [address] Sodium [Moles/Vol] 135 mmol/L Normal 133-145 [facility] Comment on above: Performed By: #### L 501.080 #### [facility] [address] [place], [address] T PROT 8.2 g/dL Normal 5.9-8.4 [facility] Comment on above: Performed By: #### L 501.080 #### [facility] [address] [place], [address] Urea nitrogen [Mass/Vol] 9 mg/dL Normal 4-19 [facility] Comment on above: Performed By: #### L 501.080 #### [facility] [address] [place], [address] Emergency Department Summary on 08-03-2024 Emergency Department Summary [facility] Medical Records Department [address] [place] [address] Emergency Department Summary 08/03/24 MR#: [id number] Acct: [id number] Name: DAYNE MEYER Rep #: [id number] : 1975 48 From: Silver Wheatley MD PCP: Care Physician,No Primary Status:ADM IN Location: [address] History of Present Illness Chief Complaint: Substance Abuse Informant: patient Onset/Context/Timing Onset: Month(s) Context: Gradual Onset Timing: Continuous Current Severity: Moderate Maximum Severity: Moderate Narrative Narrative: 48-year-old male history of PTSD and diabetes currently on no medications does not check his blood sugars. History of alcohol abuse last inpatient detox was October at this facility. Patient states he drinks liquor and beer about 7 pints of beer a day and does not give a quantity to the hard alcohol. He has been drinking today. States he wants detox. Denies recent illness. Prior similar symptoms: Yes Recent Illness/Hospitalizati on: No PFSH PFSH Medical History Allergic rhinitis Asthma Anxiety and depression Chronic pain Kidney stones Restless legs Hypertension Tobacco use Alcohol abuse Degeneration of spine PTSD (post-traumatic stress disorder) Diabetes Home Medications ???Medication ???Instructions ???Recorded ???Last Taken ???Type albuterol sulfate 90 mcg/actuation 1 puff inhalation Q4H PRN PRN Unknown History aerosol inhaler wheezing apixaban 5 mg tablet (Eliquis) 5 mg PO BID 11/10/23 Unknown Histo ry atorvastatin 10 mg tablet 10 mg PO DAILY 11/10/23 Unknown Hi story carvedilol 25 mg tablet 12.5 mg PO BID 11/10/23 Unknown Hi story cetirizine 10 mg tablet 10 mg PO DAILY 11/10/23 Unknown Hi story fluoxetine 60 mg tablet 60 mg PO DAILY 11/10/23 Unknown Hi story glipizide 2.5 mg tablet, extended 2.5 mg PO DAILY 11/10/23 Unknown History release 24 hr lisinopril 10 1 tab PO DAILY 11/10/23 Unknown Hi story mg-hydrochlorothiazid e 12.5 mg tablet meloxicam 15 mg tablet 15 mg PO DAILY 11/10/23 Unknown Hi story metformin 1,000 mg tablet 1,000 mg PO BID 11/10/23 Unknown H istory empagliflozin 25 mg tablet 25 mg PO DAILY 03/26/24 Unknown Hi story (Jardiance) gabapentin 300 mg capsule 300 mg PO TID 03/26/24 Unknown His tory Allergy/AdvReac Type Severity Reaction Status Date / Time trazodone (trazamine) AdvReac Mild Other Verified 08/03/24 22:22 Family History Mother Stomach cancer Father No problems noted. Surgical History History of carpal tunnel surgery Social History household members: none housing: other details: Living in his vehicle. Smoking Status: Current every day smoker tobacco type: cigarettes alcohol intake: current alcohol intake frequency: 3 or more drinks per day details: 4-pints beer daily. substance use type: does not use ROS ROS ED ROS Narrative Denies recent illness. Constitutional Constitutional ED: Denies chills or fever(s) Eyes Eyes: Denies blurry vision ENT ENT ED: Denies ear pain Cardiovascular Cardiovascular: Denies chest pain or palpitations Respiratory/Chest Respiratory/Chest: Denies cough or dyspnea Gastrointestinal Gastrointestinal: Denies abdominal pain, diarrhea, nausea or vomiting Genitourinary Genitourinary ED: Denies dysuria Musculoskeletal Musculoskeletal: Denies arthralgias Integumentary Denies abscess Neurologic Neurologic: Denies headache(s) Psychiatric Psychiatric: Denies anxiety Endocrine Endocrinology: Denies cold intolerance Hematologic/Lymphatic Hematologic/Lymphatic : Denies easy bleeding, easy bruising or lymphadenopathy Allergic/Immunologic Allergic/Immunologic ED: Denies mouth swelling, tongue swelling or urticaria EXAM Physical Exam Narrative Exam Narrative: 48-year-old male sitting upright vital signs are stable afebrile initial blood pressure elevated 180/101. He does not look septic or toxic. Smells of alcohol most likely intoxicated. H EENT exam pupils round react light. No trauma to his face or scalp. Moist mucous membranes. Neck nontender no lymphadenopathy. Lungs clear to auscultation bilateral. Heart regular rhythm rate about 80 no murmur. Chest wall ribs nontender. Abdomen soft nontender. Back nontender. Moving all 4 extremities. 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 Dorsi plantarflexion intact. Nontender. Neurologically he is awake and alert. Answering questions and following commands. No focal motor deficits. Benign exam. Const Vital Signs: 08/03/24 22:20 Temperature 98 F Temperature Source Oral Pulse Rate 85 (more content not included)... Normal [facility] Urine Drug Screen (VISTA)on 08-03-2024 AMPHETAMINES Negative Normal <1000 ng/mL [facility] Comment on above: Performed By: #### L 501.080 #### [facility] [address] [place], [address] BARBITIURATES Negative Normal < 200 ng/mL [facility] Comment on above: Performed By: #### L 501.080 #### [facility] [address] [place], [address] BENZODIAZIPINE Negative Normal < 200 ng/mL [facility] Comment on above: Performed By: #### L 501.080 #### [facility] [address] [place], [address] BUP Ur Drug Scr Negative Normal < 200 ng/mL [facility] Comment on above: Performed By: #### L 501.080 #### [facility] [address] [place], [address] COCAINE Negative Normal < 300 ng/mL [facility] Comment on above: Performed By: #### L 501.080 #### [facility] [address] [place], [address] Fentanyl Negative Normal [facility] Comment on above: Performed By: #### L 501.080 #### [facility] [address] [place], [address] METHADONE Negative Normal < 300 ng/mL [facility] Comment on above: Performed By: #### L 501.080 #### [facility] [address] [place], [address] OPIATES Negative Normal < 300 ng/mL [facility] Comment on above: Performed By: #### L 501.080 #### [facility] [address] [place], [address] OXYCODONE Negative Normal < 100 ng/mL [facility] Comment on above: Performed By: #### L 501.080 #### [facility] [address] [place], [address] PCP Negative Normal < 25 ng/mL [facility] Comment on above: Performed By: #### L 501.080 #### [facility] [address] [place], [address] THC Positive Normal < 50 ng/mL [facility] Comment on above: Result Comment: If c onfirmation testing is needed, a separate order will be required to send out testing to the reference laboratory. Performed By: #### L 501.080 #### [facility] [address] [place], [address] BASIC METABOLIC PANELon - Anion gap [Moles/Vol] 17 mmol/L Normal 10-20 [facility] Comment on above: Order Comment: [facility] has implemented the eGFR calculation approach that does not have a coefficient for race that conforms to the NKF-ASN Task Force Recommendations. Performed By: #### 4 [id number] #### [address] [address] Funmi Barlow M.D. [id number] Calcium [Mass/Vol] 9.5 mg/dL Normal 8.4-10.2 [facility] Comment on above: Order Comment: [facility] has implemented the eGFR calculation approach that does not have a coefficient for race that conforms to the NKF-ASN Task Force Recommendations. Performed By: #### 4 [id number] #### [facility] [address] [place] [address] Funmi Barlow M.D. [id number] Chloride [Moles/Vol] 98 mmol/L Normal 98-108 [facility] Comment on above: Order Comment: [facility] has implemented the eGFR calculation approach that does not have a coefficient for race that conforms to the NKF-ASN Task Force Recommendations. Performed By: #### 4 [id number] #### [place] [address] Funmi Barlow M.D. [id number] Creatinine [Mass/Vol] 0.88 mg/dL Normal 0.50-1.30 [facility] Comment on above: Order Comment: [facility] has implemented the eGFR calculation approach that does not have a coefficient for race that conforms to the NKF-ASN Task Force Recommendations. Performed By: #### 4 [id number] #### [place] [address] Funmi Barlow M.D. [id number] EGFR 105 mL/min/1.73 m2 Normal >=60 [facility] Comment on above: Order Comment: [facility] has implemented the eGFR calculation approach that does not have a coefficient for race that conforms to the NKF-ASN Task Force Recommendations. Result Comment: Sana mated GFR was calculated using the 2020 CKD-EPI creatinine equation. Performed By: #### 4 [id number] #### [facility] [address] [place] [address] 34[address]Jewels Barlow M.D. [id number] Glucose [Mass/Vol] 239 mg/dL High 65-99 [facility] Comment on above: Order Comment: [facility] has implemented the eGFR calculation approach that does not have a coefficient for race that conforms to the NKF-ASN Task Force Recommendations. Performed By: #### 4 [id number] #### [facility] [address] [place] [address] Funmi Barlow M.D. [id number] HCO3 (Bld) [Moles/Vol] 25 mmol/L Normal 21-32 [facility] Comment on above: Order Comment: [facility] has implemented the eGFR calculation approach that does not have a coefficient for race that conforms to the NKF-ASN Task Force Recommendations. Performed By: #### 4 [id number] #### [facility] [address] [place] [address] Funmi Barlow M.D. [id number] Potassium [Moles/Vol] 4.9 mmol/L Normal 3.5-5.1 [facility] Comment on above: Order Comment: [facility] has implemented the eGFR calculation approach that does not have a coefficient for race that conforms to the NKF-ASN Task Force Recommendations. Performed By: #### 4 [id number] #### [facility] [address] [place] [address] Funmi Barlow M.D. [id number] Sodium [Moles/Vol] 135 mmol/L Normal 135-145 [facility] Comment on above: Order Comment: [facility] has implemented the eGFR calculation approach that does not have a coefficient for race that conforms to the NKF-ASN Task Force Recommendations. Performed By: #### 4 [id number] #### [facility] [address] [place] [address] Funmi Barlow M.D. [id number] Urea nitrogen [Mass/Vol] 25 mg/dL Normal 8-25 [facility] Comment on above: Order Comment: [facility] has implemented the eGFR calculation approach that does not have a coefficient for race that conforms to the NKF-ASN Task Force Recommendations. Performed By: #### 4 [id number] #### [facility] [address] [place] [address] Funmi Barlow M.D. [id number] Urea nitrogen/Creatinine [Mass ratio] 28.4 mg/mg High 10.0-20.0 [facility] Comment on above: Order Comment: [facility] has implemented the eGFR calculation approach that does not have a coefficient for race that conforms to the NKF-ASN Task Force Recommendations. Performed By: #### 4 [id number] #### [facility] [address] [place] [address] Funmi Barlow M.D. [id number] CBC WITH AUTO DIFFERENTIALon 04-01-2024 AUTO NRBC 0.0 % Normal [facility] Comment on above: Performed By: #### L [id number] #### [facility] [address] [place] [address] Funmi Barlow M.D. [id number] AUTO NRBC ABS COUNT 0.00 K/mcL Normal 0.00-0.00 [facility] Comment on above: Performed By: #### L [id number] #### [facility] [address] [place] [address] Funmi Barlow M.D. [id number] BASOPHILS ABSOLUTE COUNT 0.05 K/mcL Normal 0.00-0.30 [facility] Comment on above: Performed By: #### L [id number] #### [facility] [address] [place] [address] Funmi Barlow M.D. [id number] Basophils/100 WBC (Bld) 0.6 % Normal [facility] Comment on above: Performed By: #### L [id number] #### [facility] [address] [place] [address] Funmi Barlow M.D. [id number] Eosinophils (Bld) [#/Vol] 0.30 10*3/uL Normal 0.00-0.50 [facility] Comment on above: Performed By: #### L [id number] #### [facility] [address] [place] [address] Funmi Barlow M.D. [id number] Eosinophils/100 WBC (Bld) 3.3 % Normal [facility] Comment on above: Performed By: #### L [id number] #### [facility] [address] [place] [address] Funmi Barlow M.D. [id number] Erythrocyte distribution width (RBC) [Ratio] 13.8 % Normal 11.6-14.8 [facility] Comment on above: Performed By: #### L [id number] #### [facility] [address] [place] [address] Funmi Barlow M.D. [id number] Hematocrit (Bld) [Volume fraction] 42.8 % Normal 41.0-53.0 [facility] Comment on above: Performed By: #### L [id number] #### [facility] [address] [place] [address] Funmi Barlow M.D. [id number] Hemoglobin (Bld) [Mass/Vol] 14.9 g/dL Normal 13.5-17.5 [facility] Comment on above: Performed By: #### L [id number] #### [place] [address] Funmi Barlow M.D. [id number] IG ABSOLUTE 0.04 K/mcL Normal 0.00-0.30 [facility] Comment on above: Performed By: #### L [id number] #### [place] [address] Funmi Barlow M.D. [id number] IG PERCENT 0.40 % Normal [facility] [place] Comment on above: Result Comment: The IG parameter is the percentage of metamyelocytes, myelocytes and promyelocytes. An immature granulocyte count (IG) of 1% or more suggests the possibility of infection, an IG count of 3% is very likely related to an infection. Performed By: #### L [id number] #### [place] [address] Funmi Barlow M.D. [id number] Lymphocytes (Bld) [#/Vol] 2.05 10*3/uL Normal 0.90-4.00 [facility] [place] Comment on above: Performed By: #### L [id number] #### [facility] [address] [place] [address] Funmi Barlow M.D. [id number] Lymphocytes/100 WBC (Bld) 22.6 % Normal [facility] [place] Comment on above: Performed By: #### L [id number] #### [facility] [address] [place] [address] Funmi Barlow M.D. [id number] MCH (RBC) [Entitic mass] 33.1 pg Normal 26.0-34.0 [facility] [place] Comment on above: Performed By: #### L [id number] #### [facility] [address] [place] [address] Funmi Barlow M.D. [id number] MCV (RBC) [Entitic vol] 95.1 fL Normal 80.0-100.0 [facility] [place] Comment on above: Performed By: #### L [id number] #### [facility] [address] [place] [address] Funmi Barlow M.D. [id number] MEAN CORPUSCULAR HEMOGLOBIN CONC 34.8 g/dL Normal 31.0-37.0 [facility] [place] Comment on above: Performed By: #### L [id number] #### [place] [address] Funmi Barlow M.D. [id number] Monocytes (Bld) [#/Vol] 0.74 10*3/uL Normal 0.30-0.90 [facility] [place] Comment on above: Performed By: #### L [id number] #### [facility] [address] [place] [address] Funmi Barlow M.D. [id number] Monocytes/100 WBC (Bld) 8.1 % Normal [facility] [place] Comment on above: Performed By: #### L [id number] #### [place] [address] Funmi Barlow M.D. [id number] NEUTROPHILS ABSOLUTE COUNT 5.90 K/mcL Normal 1.70-7.00 [facility] [place] Comment on above: Performed By: #### L [id number] #### [facility] [address] [place] [address] Funmi Barlow M.D. [id number] Neutrophils/100 WBC (Bld) 65.0 % Normal [facility] [place] Comment on above: Performed By: #### L [id number] #### [facility] [address] [place] [address] Funmi Barlow M.D. [id number] Platelet mean volume (Bld) [Entitic vol] 9.3 fL Low 9.4-12.4 [facility] [place] Comment on above: Performed By: #### L [id number] #### [facility] [address] [place] [address] Funmi Barlow M.D. [id number] Platelets (Bld) [#/Vol] 270 10*3/uL Normal 150-400 [facility] [place] Comment on above: Performed By: #### L [id number] #### [facility] [address] [place] [address] Funmi Barlow M.D. [id number] RBC (Bld) [#/Vol] 4.50 10*6/uL Normal 4.50-5.90 [facility] Comment on above: Performed By: #### L [id number] #### [facility] [address] [place] [address] Funmi Barlow M.D. [id number] WBC (Bld) [#/Vol] 9.08 10*3/uL Normal 4.50-11.00 [facility] Comment on above: Performed By: #### L [id number] #### [facility] [address] [place] [address] Funmi Barlow M.D. [id number] ED Prov Noteon 04-01-2024 ED Prov Note ED PROVIDER NOTE [facility] NAME: Dayne Meyer AGE: 48 y.o. : 1975 VISIT DATE: 04/01/2024 CSN: [id number] PCP: No primary care provider on file. Chief Complaint Patient presents with Wound Check 48-year-old male with history of type 2 diabetes, hypertension, depression, PTSD arrives to ED via medics with complaints of open wound to the left great toe. The patient states that about a week ago he injured his toe on a door, where he had a blood blister developed. States that since then its ruptured, and has had the wound and has been looking a little worse. States that he is worried about infection. Patient also states that for the last several months he has had nonspecific pain in the left hip and lower back, he is worried about degenerative disease versus fracture. Denies any acute falls or injuries. Denies any numbness or tingling down his extremities. Denies any saddle anesthesia, bowel or bladder involvement. Patient states that he currently takes medications for his diabetes but does not have a primary care doctor. Denies any history of diabetic foot ulcers. States that he has neuropathy in his feet but still has some feeling. 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 Past Medical History: Diagnosis Date Depression Diabetes mellitus (HCC) Hypertension PTSD (post-traumatic stress disorder) History reviewed. No pertinent surgical history. History reviewed. No pertinent family history. Social History Socioeconomic History Marital status: Tobacco Use Smoking status: Every Day Types: Cigarettes Smokeless tobacco: Never Substance and Sexual Activity Alcohol use: Not Currently Drug use: Never Social Drivers of Health Financial Resource Strain: Low Risk (06/27/2021) Received from [facility] Overall Financial Resource Strain (CARDIA) Difficulty of Paying Living Expenses: Not hard at all Food Insecurity: No Food Insecurity (06/27/2021) Received from [facility] Hunger Vital Sign Worried About Running Out of Food in the Last Year: Never true Ran Out of Food in the Last Year: Never true Transportation Needs: No Transportation Needs (03/29/2020) Received from [facility] PRAPARE - Transportation Lack of Transportation (Medical): No Lack of Transportation (Non-Medical): No Physical Activity: Inactive (03/29/2020) Received from [facility] Exercise Vital Sign Days of Exercise per Week: 0 days Minutes of Exercise per Session: 0 min Stress: Stress Concern Present (03/29/2020) Received from [facility] [place] [employer] [facility] - Occupational Stress Questionnaire Feeling of Stress : Very much Social Connections: Moderately Isolated (03/29/2020) Received from [facility] Social Connection and Isolation Panel [NHANES] Frequency of Communication with Friends and Family: Three times a week Frequency of Social Gatherings with Friends and Family: Once a week Attends Synagogue Services: More than 4 times per year Active Member of Clubs or Organizations: No Attends Club or Organization Meetings: Never Marital Status: No current outpatient medications on file prior to encounter. No Known Allergies Review of Systems Patient Vitals for the past 24 hrs: BP Temp Temp src Pulse Resp SpO2 04/01/24 1230 116/75 -- -- -- -- 96 % 04/01/24 1219 -- 97.9 degrees F (36.6 degrees C) Oral -- -- -- 04/01/24 1216 125/74 -- -- 73 18 97 % Physical Exam Vitals and nursing note reviewed. Constitutional: General: He is not in acute distress. Appearance: He is morbidly obese. HENT: Head: Normocephalic and atraumatic. Right Ear: Hearing normal. Left Ear: Hearing normal. Nose: Nose normal. Mouth/Throat: Lips: Hoople. Mouth: Mucous membranes are moist. Eyes: Extraocular Movements: Extraocular movements intact. Pupils: Pupils are equal, round, and reactive to light. Cardiovascular: Rate and Rhythm: Normal rate and regular rhythm. Pulses: Normal pulses. Heart sounds: Normal heart sounds, S1 normal and S2 normal. Musculoskeletal: General: Normal range of motion. Cervical back: Full passive range of motion without pain, normal range of motion and neck supple. Thoracic back: Normal. Lumbar back: Normal. No tenderness or bony tenderness. Negative right straight leg raise test and negative left straight leg raise test. Right hip: Normal. Left hip: Normal. No deformity or bony tenderness. Normal range of motion. Normal strength. Feet: Comments: Open ulcer noted to the medial aspect of the left great toe. Please see picture below for visualization. No active drainage. No severe cellulitis noted to the foot or ankle. Pulmonary: Effort: Pulmonary effort is normal. No respiratory distress. Breath sounds: Normal breath (more content not included)... Normal [facility] [place] XR FOOT LEFT 3+ VIEWS (STAND JESÚS)on 04-01-2024 XR FOOT LEFT 3+ VIEWS (STANDARD) EXAMINATION: XR FOOT LEFT 3+ VIEWS (STANDARD) 04/01/2024 1:01 pm HISTORY: ORDERING SYSTEM PROVIDED HISTORY: great toe wound, diabetic, TECHNOLOGIST PROVIDED HISTORY: Illness/Other Reason for exam: great toe wound, diabetic Cancer History: . Surgery, RadiationHistory: . Encounter Type: Initial Additional signs and symptoms: great toe wound, diabetic ORDERING SYSTEM PROVIDED DIAGNOSIS CODES: S91.102A Open wound of left great toe, initial encounter E11.9 Type 2 diabetes mellitus without complication, unspecified whether penitentiary insulin use ([facility]) M25.552 Left hip pain M54.50 Low back pain COMPARISON: None. FINDINGS: There is a hallux valgus deformity. No fracture or dislocation is seen. There is soft tissue swelling along the dorsum of the foot. There also appears to be soft tissue swelling of the 1st toe. No osseous erosion or periosteal reaction is seen. No soft tissue gas is identified. IMPRESSION: 1. No radiographic evidence of osteomyelitis is seen. 2. There appears to be soft tissue swelling of the 1st toe and the dorsum of the foot which is nonspecific. Workstation ID: [id number] Dictated by: REDD FROST on FriApr 01, 2024 1:29:20 PM EST Transcribed by: REDD FROST on FriApr 01, 2024 1:29:20 PM EST Finalized by: REDD FROST on FriApr 01, 2024 1:29:20 PM EST Normal [facility] [place] Comment on above: Order Comment: Injur y/Trauma or Illness?:Illness/Other great toe wound, diabetic How long have you had these symptoms (acute/chronic)?:Unknown Reason for exam?:great toe wound, diabetic History of cancer?:. Surgeries, chemotherapy, or radiation?:. Type of Exam?:Initial Additional signs and symptoms?:great toe wound, diabetic XR HIP LEFT WITH PELVIS 2-3 VIEWS (ROUTINE)on 04-01-2024 XR HIP LEFT WITH PELVIS 2-3 VIEWS (ROUTINE) EXAMINATION: XR HIP LEFT WITH PELVIS 2-3 VIEWS (ROUTINE) 04/01/2024 1:01 pm HISTORY: ORDERING SYSTEM PROVIDED HISTORY: Left hip pain, back pain, TECHNOLOGIST PROVIDED HISTORY: Illness/Other Reason for exam: low back/left hip pain Cancer History: . Surgery, RadiationHistory: . 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 FINDINGS: There are degenerative changes of the visualized lower lumbar spine. There is a linear focus of heterotopic ossification along the lateral aspect of the right iliac crest. There appear to be mild degenerative changes of the sacroiliac joints. No fracture or dislocation is seen. There is severe degenerative changes of the right hip joint with severe superior joint space narrowing and a qjgt-lp-zwcv appearance. 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 There are severe degenerative changes of the left hip joint with severe superior joint space narrowing and a xpzt-vh-totg appearance. There is subchondral cystic change within the acetabulum and the superior aspect of the femoral head. The acetabulum appears hypoplastic with uncovering of the lateral aspect of the left femoral head. IMPRESSION: 1. 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 2. 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 3. No fracture or dislocation is seen. Workstation ID: [id number] Dictated by: REDD FROST on FriApr 01, 2024 1:31:06 PM EST Transcribed by: REDD FROST on FriApr 01, 2024 1:31:06 PM EST Finalized by: REDD FROST on FriApr 01, 2024 1:31:06 PM EST Normal [facility] [place] Comment on above: Order Comment: Injur y/Trauma or Illness?:Illness/Other low back/left hip pain How long have you had these symptoms (acute/chronic)?:Unknown Reason for exam?:low back/left hip pain History of cancer?:. Surgeries, chemotherapy, or radiation?:. Type of Exam?:Initial Additional signs and symptoms?:low back/left hip pain XR LUMBAR SPINE 2-3 VIEWS (S TANDARD)on 04-01-2024 XR LUMBAR SPINE 2-3 VIEWS (STANDARD) EXAMINATION: XR LUMBAR SPINE 2-3 VIEWS (STANDARD) 04/01/2024 1:01 pm HISTORY: ORDERING SYSTEM PROVIDED HISTORY: low back/left hip pain, TECHNOLOGIST PROVIDED HISTORY: Illness/Other Reason for exam: low back/left hip pain Cancer History: . Surgery, RadiationHistory: . 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 FINDINGS: There is no acute compression fracture or subluxation. There is multilevel discogenic disease of the visualized lower thoracic spine. There is multilevel discogenic disease throughout the lumbar spine and this appears severe on the right at the L4-5 level. There is facet joint arthropathy of the lower lumbar spine. There is straightening of the normal lumbar lordosis. There is a large amount of stool throughout the ascending and transverse colon. There are severe degenerative changes involving the superior aspects of the hip joints bilaterally at the edge of the vdugp-pz-heyw. IMPRESSION: 1. 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 2. 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 3. At the edge of the lmeco-or-qedr there are severe degenerative changes again seen to involve the hip joints bilaterally. Workstation ID: [id number] Dictated by: REDD FROST on FriApr 01, 2024 1:32:52 PM EST Transcribed by: REDD FROST on FriApr 01, 2024 1:32:52 PM EST Finalized by: RDED FROST on Christy Apr 01, 2024 1:32:52 PM EST Normal [facility] [place] Comment on above: Order Comment: Injur y/Trauma or Illness?:Illness/Other low back/left hip pain How long have you had these symptoms (acute/chronic)?:Unknown Reason for exam?:low back/left hip pain History of cancer?:. Surgeries, chemotherapy, or radiation?:. Type of Exam?:Initial Additional signs and symptoms?:low back/left hip pain Bedside Glucoseon 03-29-2024 FINGERSTICK GLU 276 mg/dL High 74-106 [facility] Comment on above: Result Comment: RIP GEMENT OF PATIENT CARE PER NURSING PROTOCOL Performed By: #### L 501.080 #### [facility] [address] [place], [address] FINGERSTICK GLU 262 mg/dL High 74-106 [facility] Comment on above: Result Comment: RIP GEMENT OF PATIENT CARE PER NURSING PROTOCOL Performed By: #### L 505.5000, L501.9100, L500.2500, L100.0100 #### [facility] [address] [place], [address] Discharge Instructionon 03-17 Discharge Instruction [facility] Medical Records Department [address] [place] [address] Instructions for Home/Discharge Instructions 03/29/24 0829 MR#: [id number] Acct: [id number] Name: DAYNE MEYER Rep #: [id number] : 1975 48 From: Wandy Pittman MD PCP: KEVIN HAIRSTON Status:ADM IN Discharge Instructions Diet Discharge Diet: - (DASH diet, calorie controlled) DC O2, CPAP, BIPAP needs Home O2 Discharge instructions: No Dressing / Incision Discharge Activity: Use Walker and - (Return to normal level of activity) Follow Up Care Test Results: Test results from this visit will be discussed in further detail at your follow-up appointment, if applicable. Discharge Plan Admission Admit Date/Time: 03/26/24 13:57 Primary Reason for Your Visit: Alcohol detox Attending Provider: Wandy Ptitman Primary Care Provider: YAMILETH CID Consulting Providers: Kristine Alexander Instructions Patient Instructions: Addiction: Getting Help, Addiction Recovery Counseling, Addiction Recovery Relapse Discharge Orders/Prescriptions Prescriptions: Continued Jardiance 25 mg tablet 25 mg PO DAILY gabapentin 300 mg capsule 300 mg PO TID carvedilol 25 mg tablet 12.5 mg PO BID cetirizine 10 mg tablet 10 mg PO DAILY atorvastatin 10 mg tablet 10 mg PO DAILY meloxicam 15 mg tablet 15 mg PO DAILY glipizide 2.5 mg tablet extended release 24hr 2.5 mg PO DAILY metformin 1,000 mg tablet 1,000 mg PO BID lisinopril-hydrochlor othiazide 10-12.5 mg tablet 1 tab PO DAILY albuterol sulfate 90 mcg/actuation HFA aerosol inhaler 1 puff inhalation Q4H PRN PRN (Reason: wheezing) fluoxetine 60 mg tablet 60 mg PO DAILY Eliquis 5 mg tablet 5 mg PO BID Referrals / Follow Up: YAMILETH CID CRNP [Primary Care Provider] - Within 2 Weeks Disposition Disposition (needs filled in before D/C Order can be placed): DC/Tx to Another Type of HCF 03/29/24 0832 Wandy Pittman MD CC: Dr. Kristine Alexander MD; KEVIN HAIRSTON Signed Normal [facility] Bedside Glucoseon 03-28-2024 FINGERSTICK GLU 403 mg/dL High -106 [facility] Comment on above: Result Comment: RIP GEMENT OF PATIENT CARE PER NURSING PROTOCOL Performed By: #### L 501.080 #### [facility] [address] [place], [address] FINGERSTICK GLU 198 mg/dL High 74-106 [facility] Comment on above: Result Comment: RIP GEMENT OF PATIENT CARE PER NURSING PROTOCOL Performed By: #### L 505.5000, L501.9100, L500.2500, L100.0100 #### [facility] [address] [place], [address] FINGERSTICK GLU 200 mg/dL [facility]106 [facility] Comment on above: Result Comment: RIP GEMENT OF PATIENT CARE PER NURSING PROTOCOL Performed By: #### L 501.080 #### [facility] [address] [place], [address] FINGERSTICK GLU 207 mg/dL [facility]106 [facility] Comment on above: Result Comment: RIP GEMENT OF PATIENT CARE PER NURSING PROTOCOL Performed By: #### L 505.5000, L501.9100, L500.2500, L100.0100 #### [facility] [address] [place], [address] Bedside Glucoseon 03-27-2024 FINGERSTICK GLU 201 mg/dL High -106 [facility] Comment on above: Result Comment: RIP GEMENT OF PATIENT CARE PER NURSING PROTOCOL Performed By: #### L 501.080 #### [facility] [address] [place], [address] FINGERSTICK GLU 232 mg/dL High -106 [facility] Comment on above: Result Comment: RIP GEMENT OF PATIENT CARE PER NURSING PROTOCOL Performed By: #### L 505.5000, L501.9100, L500.2500, L100.0100 #### [facility] [address] [place], [address] FINGERSTICK GLU 233 mg/dL High 74-106 [facility] Comment on above: Result Comment: RIP GEMENT OF PATIENT CARE PER NURSING PROTOCOL Performed By: #### L 505.5000, L501.9100, L500.2500, L100.0100 #### [facility] [address] [place], [address] FINGERSTICK GLU 197 mg/dL High 74-106 [facility] Comment on above: Result Comment: RIP GEMENT OF PATIENT CARE PER NURSING PROTOCOL Performed By: #### L 505.5000, L501.9100, L500.2500, L100.0100 #### [facility] [address] [place], [address] Alcohol, Blood (Medical)-Ser umon 03-26-2024 SERUM ETOH < 3.0 Normal [facility] Comment on above: Result Comment: The serum:whole blood ethanol ratio is approximately 1.14 and varies slightly with hematocrit. Medical Alcohol reference interval and critical value in non-tolerant individuals; 50 - 100 Impairment 100 Intoxication 100 - 250 Severe Poisoning 250 - 400 Deep/possible fatal coma Performed By: #### L 505.5000, L501.9100, L500.2500, L100.0100 #### [facility] [address] [place], [address] Bedside Glucoseon 03-26-2024 FINGERSTICK GLU 241 mg/dL High 74-106 [facility] Comment on above: Result Comment: RIP GEMENT OF PATIENT CARE PER NURSING PROTOCOL Performed By: #### L 501.080 #### [facility] [address] [place], [address] FINGERSTICK GLU 172 mg/dL High 74-106 [facility] Comment on above: Result Comment: RIP GEMENT OF PATIENT CARE PER NURSING PROTOCOL Performed By: #### L 501.080 #### [facility] [address] [place], [address] CBC W/Diff, Automatedon 01-1 0-2024 Absolute Lymph 1.59 X10 3/uL Normal 0.83-4.51 [facility] Comment on above: Performed By: #### L 505.5000, L501.9100, L500.2500, L100.0100 #### [facility] [address] [place], [address] Absolute Neut 4.7 X10 3/uL Normal 2.0-7.7 [facility] Comment on above: Performed By: #### L 505.5000, L501.9100, L500.2500, L100.0100 #### [facility] [address] [place], [address] Basophils/100 WBC (Bld) 0.7 % Normal 0-1 [facility] Comment on above: Performed By: #### L 505.5000, L501.9100, L500.2500, L100.0100 #### [facility] [address] [place], [address] Eosinophils/100 WBC (Bld) 2.6 % Normal 0-5 [facility] Comment on above: Performed By: #### L 505.5000, L501.9100, L500.2500, L100.0100 #### [facility] [address] [place], [address] Erythrocyte distribution width (RBC) [Ratio] 14.2 % Normal 11.6-14.6 [facility] Comment on above: Performed By: #### L 505.5000, L501.9100, L500.2500, L100.0100 #### [facility] [address] [place], [address] Hematocrit (Bld) [Volume fraction] 44.9 % Normal 40-54 [facility] Comment on above: Performed By: #### L 505.5000, L501.9100, L500.2500, L100.0100 #### [facility] [address] [place], [address] Hemoglobin (Bld) [Mass/Vol] 15.7 g/dL Normal 13.0-16.5 [facility] Comment on above: Performed By: #### L 505.5000, L501.9100, L500.2500, L100.0100 #### [facility] [address] [place], [address] IG% 0.700 Normal 0.0-0.9 [facility] Comment on above: Result Comment: IG% - Immature Granulocytes (promyelocytes, myelocytes and metamyelocytes) > 1% indicates that a LEFT SHIFT is Present. Performed By: #### L 505.5000, L501.9100, L500.2500, L100.0100 #### [facility] [address] [place], [address] Lymphocytes/100 WBC (Bld) 21.5 % Normal 19-41 [facility] Comment on above: Performed By: #### L 505.5000, L501.9100, L500.2500, L100.0100 #### [facility] [address] [place], [address] MCH (RBC) [Entitic mass] 33.1 pg High 27.0-32.0 [facility] Comment on above: Performed By: #### L 505.5000, L501.9100, L500.2500, L100.0100 #### [facility] [address] [place], [address] MCHC (RBC) [Mass/Vol] 35.0 g/dL Normal 32-36 [facility] Comment on above: Performed By: #### L 505.5000, L501.9100, L500.2500, L100.0100 #### [facility] [address] [place], [address] MCV (RBC) [Entitic vol] 94.5 fL High 80-94 [facility] Comment on above: Performed By: #### L 505.5000, L501.9100, L500.2500, L100.0100 #### [facility] [address] [place], [address] Monocytes/100 WBC (Bld) 10.9 % High 0-10 [facility] Comment on above: Performed By: #### L 505.5000, L501.9100, L500.2500, L100.0100 #### [facility] [address] [place], [address] Neutrophils/100 WBC (Bld) 63.6 % Normal 47-70 [facility] Comment on above: Performed By: #### L 505.5000, L501.9100, L500.2500, L100.0100 #### [facility] [address] [place], [address] Nucleated RBC (Bld) [#/Vol] 0 10*3/uL Normal 0-5 [facility] Comment on above: Performed By: #### L 505.5000, L501.9100, L500.2500, L100.0100 #### [facility] [address] [place], [address] Platelet mean volume (Bld) [Entitic vol] 9.1 fL Normal 6.2-12.0 [facility] Comment on above: Performed By: #### L 505.5000, L501.9100, L500.2500, L100.0100 #### [facility] [address] [place], [address] Platelets (Bld) [#/Vol] 222 10*3/uL Normal 150-450 [facility] Comment on above: Performed By: #### L 505.5000, L501.9100, L500.2500, L100.0100 #### [facility] [address] [place], [address] RBC (Bld) [#/Vol] 4.75 10*6/uL Normal 4.6-6.2 [facility] Comment on above: Performed By: #### L 505.5000, L501.9100, L500.2500, L100.0100 #### [facility] [address] [place], [address] RDW SD 49.0 fl High 35.1-43.9 [facility] Comment on above: Performed By: #### L 505.5000, L501.9100, L500.2500, L100.0100 #### [facility] [address] [place], [address] WBC (Bld) [#/Vol] 7.4 10*3/uL Normal 4.4-11.0 [facility] Comment on above: Performed By: #### L 505.5000, L501.9100, L500.2500, L100.0100 #### [facility] [address] [place], [address] Comprehensive Metabolic Prof [facility] 03-26-2024 Albumin [Mass/Vol] 3.3 g/dL Normal 3.2-5.0 [facility] Comment on above: Performed By: #### L 505.5000, L501.9100, L500.2500, L100.0100 #### [facility] [address] [place], [address] Albumin/Globulin [Mass ratio] 0.8 {ratio} Low 0.9-2.4 [facility] Comment on above: Performed By: #### L 505.5000, L501.9100, L500.2500, L100.0100 #### [facility] [address] [place], [address] ALK P 119 U/L High 45-117 [facility] Comment on above: Performed By: #### L 505.5000, L501.9100, L500.2500, L100.0100 #### [facility] [address] [place], [address] ALT [Catalytic activity/Vol] 34 U/L Normal 16-61 [facility] Comment on above: Performed By: #### L 505.5000, L501.9100, L500.2500, L100.0100 #### [facility] [address] [place], [address] AST [Catalytic activity/Vol] 16 U/L Normal 15-37 [facility] Comment on above: Performed By: #### L 505.5000, L501.9100, L500.2500, L100.0100 #### [facility] [address] [place], [address] Bilirubin [Mass/Vol] 0.40 mg/dL Normal 0.20-1.00 [facility] Comment on above: Result Comment: For patients on eltrombopag therapy, use of Dimension [place] TBIL is not recommended. Performed By: #### L 505.5000, L501.9100, L500.2500, L100.0100 #### [facility] [address] [place], [address] BUN/CRE 20.0 RATIO Normal 10-20 [facility] Comment on above: Performed By: #### L 505.5000, L501.9100, L500.2500, L100.0100 #### [facility] [address] [place], [address] CA,Total 9.4 mg/dL Normal 8.5-10.1 [facility] Comment on above: Performed By: #### L 505.5000, L501.9100, L500.2500, L100.0100 #### [facility] [address] [place], [address] Chloride [Moles/Vol] 104 mmol/L Normal 98-107 [facility] Comment on above: Performed By: #### L 505.5000, L501.9100, L500.2500, L100.0100 #### [facility] [address] [place], [address] CO2 [Moles/Vol] 25.0 mmol/L Normal 21.0-32.0 [facility] Comment on above: Performed By: #### L 505.5000, L501.9100, L500.2500, L100.0100 #### [facility] [address] [place], [address] Creatinine [Mass/Vol] 0.85 mg/dL Normal 0.70-1.30 [facility] Comment on above: Result Comment: The validity of the calculated GFR GFRAA in patients over 70 years has not been determined. Clinical correlation is essential. Performed By: #### L 505.5000, L501.9100, L500.2500, L100.0100 #### [facility] [address] [place], [address] ECRCL 159.55 ml/min Normal [facility] Comment on above: Performed By: #### L 505.5000, L501.9100, L500.2500, L100.0100 #### [facility] [address] [place], [address] EST GFR - AA 123 mL/min Normal >60 [facility] Comment on above: Result Comment: Afri can [place] GFR Calc Performed By: #### L 505.5000, L501.9100, L500.2500, L100.0100 #### [facility] [address] [place], [address] GAP 4 Low 5-15 [facility] Comment on above: Performed By: #### L 505.5000, L501.9100, L500.2500, L100.0100 #### [facility] [address] [place], [address] GFR/1.73 sq M.predicted among non-blacks MDRD (S/P/Bld) [Vol rate/Area] 102 mL/min/{1.73_m2} Normal >60 [facility] Comment on above: Result Comment: Non- GFR Calc Performed By: #### L 505.5000, L501.9100, L500.2500, L100.0100 #### [facility] [address] [place], [address] Globulin (S) [Mass/Vol] 4.4 g/dL High 2.2-4.2 [facility] Comment on above: Performed By: #### L 505.5000, L501.9100, L500.2500, L100.0100 #### [facility] [address] [place], [address] Glucose [Mass/Vol] 195 mg/dL High 74-106 [facility] Comment on above: Result Comment: Fast ing Glucose result greater than or equal to 126 mg/dL suggests DIABETES MELLITUS per A.D.A. criteria. Performed By: #### L 505.5000, L501.9100, L500.2500, L100.0100 #### [facility] [address] [place], [address] Potassium [Moles/Vol] 4.2 mmol/L Normal 3.5-5.1 [facility] Comment on above: Performed By: #### L 505.5000, L501.9100, L500.2500, L100.0100 #### [facility] [address] [place], [address] Sodium [Moles/Vol] 134 mmol/L Low 136-145 [facility] Comment on above: Performed By: #### L 505.5000, L501.9100, L500.2500, L100.0100 #### [facility] [address] [place], [address] T PROT 7.7 g/dL Normal 6.4-8.2 [facility] Comment on above: Performed By: #### L 505.5000, L501.9100, L500.2500, L100.0100 #### [facility] [address] [place], [address] Urea nitrogen [Mass/Vol] 17 mg/dL Normal 7-18 [facility] Comment on above: Performed By: #### L 505.5000, L501.9100, L500.2500, L100.0100 #### [facility] [address] [place], [address] Emergency Department Summary on 03-26-2024 Emergency Department Summary [facility] Medical Records Department [address] [place] [address] Emergency Department Summary 03/26/24 MR#: [id number] Acct: [id number] Name: DAYNE MEYER Rep #: [id number] : 1975 48 From: Tegan MONACO PCP: KEVIN HAIRSTON Status:ADM IN [facility] History of Present Illness Chief Complaint: ETOH Intox Narrative Narrative: 48-year-old male presents requesting alcohol detox.He states he drinks 4 pints of beer daily with last drink yesterday morning. He reports increased anxiety but no other symptoms of withdrawal. He has no history of seizures or delirium tremens. States he detoxed at [facility] 6 months ago but then after that had several stressors including his mother's , divorce, and having to leave his apartment so he started drinking again. He smokes about a pack a day of cigarettes but denies other drug use. [facility] Medical History (Updated 03/26/24 @ 14:29 by Patricia Parkinson) Chronic pain Kidney stones Seizures Restless legs Depression Smoker Desire for detoxification Hypertension Tobacco use Alcohol abuse Degeneration of spine PTSD (post-traumatic stress disorder) Alcohol abuse Anxiety Depression Diabetes SOB (shortness of breath) HTN (hypertension) Home Medications ???Medication ???Instructions ???Recorded ???Last Taken ???Type albuterol sulfate 90 mcg/actuation 1 puff inhalation Q4H PRN PRN 11/10/23 Unknown History aerosol inhaler wheezing apixaban 5 mg tablet (Eliquis) 5 mg PO BID 11/10/23 Unknown History atorvastatin 10 mg tablet 10 mg PO DAILY 11/10/23 Unknown History carvedilol 25 mg tablet 12.5 mg PO BID 11/10/23 Unknown History cetirizine 10 mg tablet 10 mg PO DAILY 11/10/23 Unknown History fluoxetine 60 mg tablet 60 mg PO DAILY 11/10/23 Unknown History glipizide 2.5 mg tablet, extended 2.5 mg PO DAILY 11/10/23 Unknown History release 24 hr lisinopril 10 1 tab PO DAILY 11/10/23 Unknown History mg-hydrochlorothiazid e 12.5 mg tablet meloxicam 15 mg tablet 15 mg PO DAILY 11/10/23 Unknown History metformin 1,000 mg tablet 1,000 mg PO BID 11/10/23 Unknown History empagliflozin 25 mg tablet 25 mg PO DAILY 03/26/24 Unknown History (Jardiance) gabapentin 300 mg capsule 300 mg PO TID 03/26/24 Unknown History Allergy/AdvReac Type Severity Reaction Status Date / Time No Known Allergies Allergy Verified 03/26/24 12:43 Surgical History History of carpal tunnel surgery Social History household members: spouse housing: house Smoking Status: Current every day smoker tobacco type: cigarettes alcohol intake: never ROS ROS ED ROS Narrative Constitutional: Negative for fever, chills, malaise. CVS: Negative for palpitations, chest pain. Respiratory: Negative for shortness of breath. GI: Negative for abdominal pain, nausea, vomiting, melena, hematochezia. EXAM Physical Exam Narrative Exam Narrative: CONST: Patient sitting in no acute distress. EYES: Normal inspection. NECK: Normal inspection. RESP: No respiratory distress, CTAB. CVS: Regular rate and rhythm, no murmur, no gallop. ABD: Soft and nontender, no guarding or rebound, nondistended, no hepatosplenomegaly. SKIN: Color normal, no rash, warm, dry, intact. EXTREMITIES: Normal appearance, no pedal edema. NEURO: Alert and answering questions appropriately. PSYCH: Normal affect. Const Vital Signs: 03/26/24 12:43 03/26/24 13:42 03/26/24 13:53 Temperature 97.8 F 98.2 F Temperature Source Oral Pulse Rate 68 89 88 Respiratory Rate 15 16 18 Blood Pressure 191/104 H 176/102 H 176/102 H Blood Pressure Mean 133 126 126 Pulse Ox 98 99 97 Oxygen Delivery Method Room Air Room Air Physical Exam Const Vital Signs: 03/26/24 12:43 03/26/24 13:42 03/26/24 13:53 Temperature 97.8 F 98.2 F Temperature Source Oral Pulse Rate 68 89 88 Respiratory Rate 15 16 18 Blood Pressure 191/104 H 176/102 H 176/102 H Blood Pressure Mean 133 126 126 Pulse Ox 98 99 97 Oxygen Delivery Method Room Air Room Air MDM MDM MDM Narrative Medical decision making narrative: 48-year-old male presents requesting alcohol detox. Last drink was yesterday morning. He is awake and alert in no distress. He is hypertensive at 191/104 with otherwise normal vital signs. He does have a history of hypertension on medication. He has no active signs of withdrawal. Overall his labs including CBC and CMP are unremarkable. His glucose is 195 consistent with his history of diabetes with normal CO2 and anion gap. Urine drug screen and alcohol levels are negative. He was given IV Ativan for anxiety and a nicotine (more content not included)... Normal [facility] H AND P Exam - [facility] 03-26-2024 H&P Exam - Hospitalist [facility] Medical Records Department [address] [place] [address] H P Exam - Hospitalist 03/26/24 1353 MR#: [id number] Acct: [id number] Name: DAYNE MEYER Rep #: [id number] : 1975 48 From: Kristine Alexander MD PCP: KEVIN HAIRSTON Status:ADM IN Location: [facility] [id number] HPI - General General Date of Admission: 03/26/24 Date of Service: 03/26/24 Chief Complaint: EtOH withdrawal, treatment HPI Narrative The patient is a 48 y/o M w/ PMHx: Homelessness living in his vehicle, Tobacco use, Asthma with allergic rhinitis, Morbid obesity, HTN, HLD, Anxiety and Depression/PTSD, Diabetes mellitus type II, RLS who presents to the [facility] on 03/26/2024 w/ noted acute EtOH withdrawal, onset starting over the last 24 hours following last EtOH intake approximately yesterday AM with normal intake approximately 4 pints of alcohol (beer) daily with last alcohol withdrawal treatment approximately 6 months prior with onset increased anxiety, tremors, agitation, tactile disturbances. Patient interested in attaining sober status. Workup in the ED included T97.8, heart rate 68, BP 191/104, respiratory rate 15, 98% room air, CBC with WBC 7.4, hemoglobin 15.7, platelet 222 without marked shift, CMP with sodium 134, BUN/creatinine 17/0.85, GFR 102, glucose 195, alk phos 119 otherwise hepatic profile not marked appearing, UDS negative, ethyl alcohol less than 3. In the ED patient administered Ativan IV 1 mg x 1 as well as nicotine patch 21 mg transdermal x 1. [facility] Medical History Allergic rhinitis Asthma Anxiety and depression Chronic pain Kidney stones Restless legs Hypertension Tobacco use Alcohol abuse Degeneration of spine PTSD (post-traumatic stress disorder) Diabetes Home Medications ???Medication ???Instructions ???Recorded ???Last Taken ???Type albuterol sulfate 90 mcg/actuation 1 puff inhalation Q4H PRN PRN 11/10/23 Unknown History aerosol inhaler wheezing apixaban 5 mg tablet (Eliquis) 5 mg PO BID 11/10/23 Unknown History atorvastatin 10 mg tablet 10 mg PO DAILY 11/10/23 Unknown History carvedilol 25 mg tablet 12.5 mg PO BID 11/10/23 Unknown History cetirizine 10 mg tablet 10 mg PO DAILY 11/10/23 Unknown History fluoxetine 60 mg tablet 60 mg PO DAILY 11/10/23 Unknown History glipizide 2.5 mg tablet, extended 2.5 mg PO DAILY 11/10/23 Unknown History release 24 hr lisinopril 10 1 tab PO DAILY 11/10/23 Unknown History mg-hydrochlorothiazid e 12.5 mg tablet meloxicam 15 mg tablet 15 mg PO DAILY 11/10/23 Unknown History metformin 1,000 mg tablet 1,000 mg PO BID 11/10/23 Unknown History empagliflozin 25 mg tablet 25 mg PO DAILY 03/26/24 Unknown History (Jardiance) gabapentin 300 mg capsule 300 mg PO TID 03/26/24 Unknown History Allergy/AdvReac Type Severity Reaction Status Date / Time No Known Allergies Allergy Verified 03/26/24 12:43 Family History Mother Stomach cancer Father No problems noted. Surgical History History of carpal tunnel surgery Social History household members: none housing: other details: Living in his vehicle. Smoking Status: Current every day smoker tobacco type: cigarettes Smoking packs per day: 1 Smoking cigarettes per day: 20.0 alcohol intake: current alcohol intake frequency: 3 or more drinks per day details: 4-pints beer daily. substance use type: does not use ROS ROS Narrative Admission Review of Systems: CONSTITUTIONAL: No weight loss, fever, chills, + weakness or fatigue. HEENT: Eyes: No visual loss, blurred vision, double vision or yellow sclerae. Ears, Nose, Throat: No hearing loss, sneezing, congestion, runny nose or sore throat. SKIN: No rash or itching, lesions, wounds except + occasional staged ecchymoses, abrasions. CARDIOVASCULAR: No chest pain, chest pressure or chest discomfort, palpitations, edema, orthopnea, syncopal events. RESPIRATORY: + Occasional cough, wheezing. No shortness of breath, hemoptysis. GASTROINTESTINAL: + Recent mild anorexia, nausea. No vomiting or diarrhea, abdominal pain, melena, BRBPR. GENITOURINARY: No dysuria, frequency, urgency or retention. NEUROLOGICAL: + Mild tremors. No headache, dizziness, syncope, paralysis, ataxia, numbness or tingling in the extremities, focal weakness, change in bowel or bladder control, seizure. MUSCULOSKELETAL: + muscle, back pain, joint pain or stiffness. HEMATOLOGIC: No anemia. + Easy bleeding/bruising. LYMPHATICS: No enlarged nodes. No history of splenectomy. PSYCHIATRIC: + History of anxiety and depression. ENDOCRINOLOGIC: No reports of sweating, cold or heat intolerance. No polyuria or polydipsia. (more content not included)... Normal [facility] Magnesiumon 03-26-2024 Magnesium [Mass/Vol] 2.0 mg/dL Normal 1.6-2.6 [facility] Comment on above: Order Comment: Comme nts: May add to ED labsComments: may add to ED labs Performed By: #### L 501.080 #### [facility] [address] [place], [address] Phosphoruson 03-26-2024 Phosphate [Mass/Vol] 3.9 mg/dL Normal 2.5-4.9 [facility] Comment on above: Order Comment: Comme nts: May add to ED labsComments: may add to ED labs Performed By: #### L 501.080 #### [facility] [address] [place], [address] Urine Drug Screen (VISTA)on 03-26-2024 AMPHETAMINES Negative Normal <1000 ng/mL [facility] Comment on above: Performed By: #### L 505.5000, L501.9100, L500.2500, L100.0100 #### [facility] [address] [place], [address] BARBITIURATES Negative Normal < 200 ng/mL [facility] Comment on above: Performed By: #### L 505.5000, L501.9100, L500.2500, L100.0100 #### [facility] [address] [place], [address] BENZODIAZIPINE Negative Normal < 200 ng/mL [facility] Comment on above: Performed By: #### L 505.5000, L501.9100, L500.2500, L100.0100 #### [facility] [address] [place], [address] COCAINE Negative Normal < 300 ng/mL [facility] Comment on above: Performed By: #### L 505.5000, L501.9100, L500.2500, L100.0100 #### [facility] [address] [place], [address] ECSTACY Negative Normal < 500 ng/mL [facility] Comment on above: Performed By: #### L 505.5000, L501.9100, L500.2500, L100.0100 #### [facility] [address] [place], [address] METHADONE Negative Normal < 300 ng/mL [facility] Comment on above: Performed By: #### L 505.5000, L501.9100, L500.2500, L100.0100 #### [facility] [address] [place], [address] OPIATES Negative Normal < 300 ng/mL [facility] Comment on above: Performed By: #### L 505.5000, L501.9100, L500.2500, L100.0100 #### [facility] [address] [place], [address] PCP Negative Normal < 25 ng/mL [facility] Comment on above: Performed By: #### L 505.5000, L501.9100, L500.2500, L100.0100 #### [facility] [address] [place], [address] THC Negative Normal < 50 ng/mL [facility] Comment on above: Performed By: #### L 505.5000, L501.9100, L500.2500, L100.0100 #### [facility] [address] [place], [address] VISTA UDS PH 6 Normal [facility] Comment on above: Performed By: #### L 505.5000, L501.9100, L500.2500, L100.0100 #### [facility] [address] [place], [address] Bedside Glucoseon 11-13-2023 FINGERSTICK GLU 125 mg/dL High 74-106 [facility] Comment on above: Result Comment: RIP GEMENT OF PATIENT CARE PER NURSING PROTOCOL Performed By: #### L 501.080 #### [facility] [address] [place], [address] FINGERSTICK GLU 146 mg/dL High 74-106 [facility] Comment on above: Result Comment: RIP GEMENT OF PATIENT CARE PER NURSING PROTOCOL Performed By: #### L 501.080 #### [facility] [address] [place], [address] Discharge Instructionon 10-16 Discharge Instruction [facility] Medical Records Department [address] [facility] [place] [address] Instructions for Home/Discharge Instructions 11/13/23 1256 MR#: [id number] Acct: [id number] Name: DAYNE MEYER Rep #: [id number] : 1975 48 From: Ronnie Witt DO PCP: KEVIN HAIRSTON Status:ADM IN Discharge Instructions Diet Discharge Diet: 1800 Calorie Control Diet Activity Discharge Activity: Return to Normal Activity Weight Bearing Status: Full weight bearing Follow Up Care Test Results: Test results from this visit will be discussed in further detail at your follow-up appointment, if applicable. Discharge Plan Admission Admit Date/Time: 11/10/23 18:16 Primary Reason for Your Visit: alcohol detox Attending Provider: Ronnie Witt Primary Care Provider: YAMILETH CID Consulting Providers: Wandy Pittman Discharge Orders/Prescriptions Prescriptions: Continued carvedilol 25 mg tablet 12.5 mg PO BID cetirizine 10 mg tablet 10 mg PO DAILY atorvastatin 10 mg tablet 10 mg PO DAILY meloxicam 15 mg tablet 15 mg PO DAILY glipizide 2.5 mg tablet extended release 24hr 2.5 mg PO DAILY metformin 1,000 mg tablet 1,000 mg PO BID lisinopril-hydrochlor othiazide 10-12.5 mg tablet 1 tab PO DAILY albuterol sulfate 90 mcg/actuation HFA aerosol inhaler 1 puff inhalation Q4H PRN PRN (Reason: wheezing) fluoxetine 60 mg tablet 60 mg PO DAILY Eliquis 5 mg tablet 5 mg PO BID Referrals / Follow Up: YAMILETH CID CRNP [Primary Care Provider] - Disposition Disposition (needs filled in before D/C Order can be placed): DC/Tx to Another Type of HCF 11/13/23 1301 Ronnie Witt DO CC: Dr. Wandy Pittman MD; KEVIN HAIRSTON Signed Normal [facility] Bedside Glucoseon 11-12-2023 FINGERSTICK GLU 191 mg/dL High 74-106 [facility] Comment on above: Result Comment: RIP GEMENT OF PATIENT CARE PER NURSING PROTOCOL Performed By: #### L 501.9100 #### [facility] [address] [place], [address] FINGERSTICK GLU 177 mg/dL High -106 [facility] Comment on above: Result Comment: RIP GEMENT OF PATIENT CARE PER NURSING PROTOCOL Performed By: #### L 505.5000, L501.9100, L500.2500, L100.0100 #### [facility] [address] [place], [address] FINGERSTICK GLU 141 mg/dL High -106 [facility] Comment on above: Result Comment: RIP GEMENT OF PATIENT CARE PER NURSING PROTOCOL Performed By: #### L 501.080 #### [facility] [facility] [address] [place], [address] FINGERSTICK GLU 155 mg/dL [facility]106 [facility] Comment on above: Result Comment: RIP GEMENT OF PATIENT CARE PER NURSING PROTOCOL Performed By: #### L 505.5000, L501.9100, L500.2500, L100.0100 #### [facility] [address] [place], [address] 12 Lead EKGon 11-11-2023 12 Lead EKG [facility] [address] [place] [address] 12 Lead EKG 11/11/23 0911 MR#: [id number] Acct: [id number] Name: DAYNE MEYER Rep #: [id number] : 1975 48 From: Juanjo Boyer MD Attending Dr: Dr. Ronnie Witt DO Status: D IS IN Ordering Dr: Ronnie Witt DO Date: 11/11/23 Location: MS3 Sex: M C Admitted: 11/10/23 Test Reason : AFIB Blood Pressure : / mmHG Vent. Rate : 080 BPM Atrial Rate : 080 BPM P-R Int : 192 ms QRS Dur : 102 ms QT Int : 406 ms P-R-T Axes : 072 -19 070 degrees QTc Int : 468 ms Normal sinus rhythm Incomplete right bundle branch block Borderline ECG No previous ECGs available Confirmed by Juanjo Boyer ([id number]), clinical editor CHERELLE SON ([id number]) on 11/14/2023 6:37:22 AM Referred By: Confirmed By:Juanjo Boyer 11/14/23 0637 Date Juanjo Boyer MD CC: Dr. Ronnie Witt DO; KEVIN HAIRSTON Signed Normal [facility] Bedside Glucoseon 11-11-2023 FINGERSTICK GLU 213 mg/dL High [address] [place] [address] Comment on above: Result Comment: RIP GEMENT OF PATIENT CARE PER NURSING PROTOCOL Performed By: #### L 505.5000, L501.9100, L500.2500, L100.0100 #### [facility] [address] [place], [address] FINGERSTICK GLU 152 mg/dL High [address] [place] [address] Comment on above: Result Comment: RIP GEMENT OF PATIENT CARE PER NURSING PROTOCOL Performed By: #### L 505.5000, L501.9100, L500.2500, L100.0100 #### [facility] [address] [place], [address] FINGERSTICK GLU 179 mg/dL High [address] [place] [address] Comment on above: Result Comment: RIP GEMENT OF PATIENT CARE PER NURSING PROTOCOL Performed By: #### L 505.5000, L501.9100, L500.2500, L100.0100 #### [facility] [address] [place], [address] FINGERSTICK GLU 145 mg/dL High 74-106 [facility] Comment on above: Result Comment: RIP GEMENT OF PATIENT CARE PER NURSING PROTOCOL Performed By: #### L 501.9100 #### [facility] [address] [place], [address] FINGERSTICK GLU 131 mg/dL High 74-106 [facility] Comment on above: Result Comment: RIP GEMENT OF PATIENT CARE PER NURSING PROTOCOL Performed By: #### L 501.080 #### [facility] [address] [place], [address] CBC W/Diff, Automatedon 10-16 Absolute Lymph 1.85 X10 3/uL Normal 0.83-4.51 [facility] Comment on above: Performed By: #### L 505.5000, L501.9100, L500.2500, L100.0100 #### [facility] [address] [place], [address] Absolute Neut 5.1 X10 3/uL Normal 2.0-7.7 [facility] Comment on above: Performed By: #### L 505.5000, L501.9100, L500.2500, L100.0100 #### [facility] [address] [place], [address] Basophils/100 WBC (Bld) 0.6 % Normal 0-1 [facility] Comment on above: Performed By: #### L 505.5000, L501.9100, L500.2500, L100.0100 #### [facility] [address] [place], [address] Eosinophils/100 WBC (Bld) 2.6 % Normal 0-5 [facility] Comment on above: Performed By: #### L 505.5000, L501.9100, L500.2500, L100.0100 #### [facility] [address] [place], [address] Erythrocyte distribution width (RBC) [Ratio] 12.7 % Normal 11.6-14.6 [facility] Comment on above: Performed By: #### L 505.5000, L501.9100, L500.2500, L100.0100 #### [facility] [address] [place], [address] Hematocrit (Bld) [Volume fraction] 40.8 % Normal 40-54 [facility] Comment on above: Performed By: #### L 505.5000, L501.9100, L500.2500, L100.0100 #### [facility] [address] [place], [address] Hemoglobin (Bld) [Mass/Vol] 14.4 g/dL Normal 13.0-16.5 [facility] Comment on above: Performed By: #### L 505.5000, L501.9100, L500.2500, L100.0100 #### [facility] [address] [place], [address] IG% 0.700 Normal 0.0-0.9 [facility] Comment on above: Result Comment: IG% - Immature Granulocytes (promyelocytes, myelocytes and metamyelocytes) > 1% indicates that a LEFT SHIFT is Present. Performed By: #### L 505.5000, L501.9100, L500.2500, L100.0100 #### [facility] [address] [place], [address] Lymphocytes/100 WBC (Bld) 23.0 % Normal 19-41 [facility] Comment on above: Performed By: #### L 505.5000, L501.9100, L500.2500, L100.0100 #### [facility] [address] [place], [address] MCH (RBC) [Entitic mass] 33.2 pg High 27.0-32.0 [facility] Comment on above: Performed By: #### L 505.5000, L501.9100, L500.2500, L100.0100 #### [facility] [address] [place], [address] MCHC (RBC) [Mass/Vol] 35.3 g/dL Normal 32-36 [facility] Comment on above: Performed By: #### L 505.5000, L501.9100, L500.2500, L100.0100 #### [facility] [address] [place], [address] MCV (RBC) [Entitic vol] 94.0 fL Normal 80-94 [facility] Comment on above: Performed By: #### L 505.5000, L501.9100, L500.2500, L100.0100 #### [facility] [address] [place], [address] Monocytes/100 WBC (Bld) 10.2 % High 0-10 [facility] Comment on above: Performed By: #### L 505.5000, L501.9100, L500.2500, L100.0100 #### [facility] [address] [place], [address] Neutrophils/100 WBC (Bld) 62.9 % Normal 47-70 [facility] Comment on above: Performed By: #### L 505.5000, L501.9100, L500.2500, L100.0100 #### [facility] [address] [place], [address] Nucleated RBC (Bld) [#/Vol] 0 10*3/uL Normal 0-5 [facility] Comment on above: Performed By: #### L 505.5000, L501.9100, L500.2500, L100.0100 #### [facility] [address] [place], [address] Platelet mean volume (Bld) [Entitic vol] 8.5 fL Normal 6.2-12.0 [facility] Comment on above: Performed By: #### L 505.5000, L501.9100, L500.2500, L100.0100 #### [facility] [address] [place], [address] Platelets (Bld) [#/Vol] 267 10*3/uL Normal 150-450 [facility] Comment on above: Performed By: #### L 505.5000, L501.9100, L500.2500, L100.0100 #### [facility] [address] [place], [address] RBC (Bld) [#/Vol] 4.34 10*6/uL Low 4.6-6.2 [facility] Comment on above: Performed By: #### L 505.5000, L501.9100, L500.2500, L100.0100 #### [facility] [address] [place], [address] RDW SD 43.8 fl Normal 35.1-43.9 [facility] Comment on above: Performed By: #### L 505.5000, L501.9100, L500.2500, L100.0100 #### [facility] [address] [place], [address] WBC (Bld) [#/Vol] 8.1 10*3/uL Normal 4.4-11.0 [facility] Comment on above: Performed By: #### L 505.5000, L501.9100, L500.2500, L100.0100 #### [facility] [address] [place], [address] Comprehensive Metabolic Prof ilon 11-11-2023 Albumin [Mass/Vol] 2.6 g/dL Low 3.2-5.0 [facility] Comment on above: Performed By: #### L 505.5000, L501.9100, L500.2500, L100.0100 #### [facility] [address] [place], [address] Albumin/Globulin [Mass ratio] 0.6 {ratio} Low 0.9-2.4 [facility] Comment on above: Performed By: #### L 505.5000, L501.9100, L500.2500, L100.0100 #### [facility] [address] [place], [address] ALK P 110 U/L Normal 45-117 [facility] Comment on above: Performed By: #### L 505.5000, L501.9100, L500.2500, L100.0100 #### [facility] [address] [place], [address] ALT [Catalytic activity/Vol] 23 U/L Normal 16-61 [facility] Comment on above: Performed By: #### L 505.5000, L501.9100, L500.2500, L100.0100 #### [facility] [address] [place], [address] AST [Catalytic activity/Vol] 19 U/L Normal 15-37 [facility] Comment on above: Performed By: #### L 505.5000, L501.9100, L500.2500, L100.0100 #### [facility] [address] [place], [address] Bilirubin [Mass/Vol] 0.50 mg/dL Normal 0.20-1.00 [facility] Comment on above: Result Comment: For patients on eltrombopag therapy, use of Dimension [place] TBIL is not recommended. Performed By: #### L 505.5000, L501.9100, L500.2500, L100.0100 #### [facility] [address] [place], [address] BUN/CRE 19.2 RATIO Normal 10-20 [facility] Comment on above: Performed By: #### L 505.5000, L501.9100, L500.2500, L100.0100 #### [facility] [address] [place], [address] CA,Total 9.2 mg/dL Normal 8.5-10.1 [facility] Comment on above: Performed By: #### L 505.5000, L501.9100, L500.2500, L100.0100 #### [facility] [address] [place], [address] Chloride [Moles/Vol] 101 mmol/L Normal 98-107 [facility] Comment on above: Performed By: #### L 505.5000, L501.9100, L500.2500, L100.0100 #### [facility] [address] [place], [address] CO2 [Moles/Vol] 25.0 mmol/L Normal 21.0-32.0 [facility] Comment on above: Performed By: #### L 505.5000, L501.9100, L500.2500, L100.0100 #### [facility] [address] [place], [address] Creatinine [Mass/Vol] 0.68 mg/dL Low 0.70-1.30 [facility] Comment on above: Result Comment: The validity of the calculated GFR GFRAA in patients over 70 years has not been determined. Clinical correlation is essential. Performed By: #### L 505.5000, L501.9100, L500.2500, L100.0100 #### [facility] [address] [place], [address] ECRCL 194.66 ml/min Normal [facility] Comment on above: Performed By: #### L 505.5000, L501.9100, L500.2500, L100.0100 #### [facility] [address] [place], [address] EST GFR - AA 160 mL/min Normal >60 [facility] Comment on above: Result Comment: Afri can Ni[place] GFR Calc Performed By: #### L 505.5000, L501.9100, L500.2500, L100.0100 #### [facility] [address] [place], [address] GAP 9 Normal 5-15 [facility] Comment on above: Performed By: #### L 505.5000, L501.9100, L500.2500, L100.0100 #### [facility] [address] [place], [address] GFR/1.73 sq M.predicted among non-blacks MDRD (S/P/Bld) [Vol rate/Area] 132 mL/min/{1.73_m2} Normal >60 [facility] Comment on above: Result Comment: Non- GFR Calc Performed By: #### L 505.5000, L501.9100, L500.2500, L100.0100 #### [facility] [address] [place], [address] Globulin (S) [Mass/Vol] 4.0 g/dL Normal 2.2-4.2 [facility] Comment on above: Performed By: #### L 505.5000, L501.9100, L500.2500, L100.0100 #### [facility] [address] [place], [address] Glucose [Mass/Vol] 126 mg/dL High 74-106 [facility] Comment on above: Result Comment: Fast ing Glucose result greater than or equal to 126 mg/dL suggests DIABETES MELLITUS per A.D.A. criteria. Performed By: #### L 505.5000, L501.9100, L500.2500, L100.0100 #### [facility] [address] [place], [address] Potassium [Moles/Vol] 4.3 mmol/L Normal 3.5-5.1 [facility] Comment on above: Performed By: #### L 505.5000, L501.9100, L500.2500, L100.0100 #### [facility] [address] [place], [address] Sodium [Moles/Vol] 135 mmol/L Low 136-145 [facility] Comment on above: Performed By: #### L 505.5000, L501.9100, L500.2500, L100.0100 #### [facility] [address] [place], [address] T PROT 6.6 g/dL Normal 6.4-8.2 [facility] Comment on above: Performed By: #### L 505.5000, L501.9100, L500.2500, L100.0100 #### [facility] [address] [place], [address] Urea nitrogen [Mass/Vol] 13 mg/dL Normal 7-18 [facility] Comment on above: Performed By: #### L 505.5000, L501.9100, L500.2500, L100.0100 #### [facility] [address] [place], [address] Hemoglobin A1con 11-11-2023 HbA1c (Bld) [Mass fraction] 5.9 % High 3.8-5.6 [facility] Comment on above: Result Comment: Norm al < 5.7 % Prediabetic 5.7 - 6.4 % Diabetic >or= 6.5 % Please note range changes. Performed By: #### L 505.5000, L501.9100, L500.2500, L100.0100 #### [facility] [address] [place], [address] Magnesiumon 11-11-2023 Magnesium [Mass/Vol] 1.9 mg/dL Normal 1.6-2.6 [facility] Comment on above: Performed By: #### L 505.5000, L501.9100, L500.2500, L100.0100 #### [facility] [address] [place], [address] Prothrombin Time w/INRon INR Coag (PPP) [Relative time] 1.1 {INR} Normal [facility] Comment on above: Performed By: #### L 505.5000, L501.9100, L500.2500, L100.0100 #### [facility] [address] [place], [address] PT Coag (PPP) [Time] 13.9 s Normal 11.7-14.9 [facility] Comment on above: Performed By: #### L 505.5000, L501.9100, L500.2500, L100.0100 #### [facility] [address] [place], [address] Thyroid Stim Hormone (TSH)on 11-11-2023 TSH 2.510 uIU/mL Normal 0.358-3.740 [facility] Comment on above: Performed By: #### L 505.5000, L501.9100, L500.2500, L100.0100 #### [facility] [address] [place], [address] Alcohol, Blood (Medical)-Ser umon 11-10-2023 SERUM ETOH 183.0 mg/dL Normal [facility] Comment on above: Result Comment: The serum:whole blood ethanol ratio is approximately 1.14 and varies slightly with hematocrit. Medical Alcohol reference interval and critical value in non-tolerant individuals; 50 - 100 Impairment 100 Intoxication 100 - 250 Severe Poisoning 250 - 400 Deep/possible fatal coma Performed By: #### L 505.5000, L501.9100, L500.2500, L100.0100 #### [facility] [address] [place], [address] Basic Metabolic Profile (BMP )on 11-10-2023 BUN/CRE 15.8 RATIO Normal 10-20 [facility] Comment on above: Performed By: #### L 505.5000, L501.9100, L500.2500, L100.0100 #### [facility] [address] [place], [address] CA,Total 8.9 mg/dL Normal 8.5-10.1 [facility] Comment on above: Performed By: #### L 505.5000, L501.9100, L500.2500, L100.0100 #### [facility] [address] [place], [address] Chloride [Moles/Vol] 95 mmol/L Low 98-107 [facility] Comment on above: Performed By: #### L 505.5000, L501.9100, L500.2500, L100.0100 #### [facility] [address] [place], [address] CO2 [Moles/Vol] 19.0 mmol/L Low 21.0-32.0 [facility] Comment on above: Performed By: #### L 505.5000, L501.9100, L500.2500, L100.0100 #### [facility] [address] [place], [address] Creatinine [Mass/Vol] 0.82 mg/dL Normal 0.70-1.30 [facility] Comment on above: Result Comment: The validity of the calculated GFR GFRAA in patients over 70 years has not been determined. Clinical correlation is essential. Performed By: #### L 505.5000, L501.9100, L500.2500, L100.0100 #### [facility] [address] [place], [address] EST GFR - AA 128 mL/min Normal >60 [facility] Comment on above: Result Comment: Afri can [place] GFR Calc Performed By: #### L 505.5000, L501.9100, L500.2500, L100.0100 #### [facility] [address] [place], [address] GAP 13 Normal 5-15 [facility] Comment on above: Performed By: #### L 505.5000, L501.9100, L500.2500, L100.0100 #### [facility] [address] [place], [address] GFR/1.73 sq M.predicted among non-blacks MDRD (S/P/Bld) [Vol rate/Area] 105 mL/min/{1.73_m2} Normal >60 [facility] Comment on above: Result Comment: Non- GFR Calc Performed By: #### L 505.5000, L501.9100, L500.2500, L100.0100 #### [facility] [address] [place], [address] Glucose [Mass/Vol] 73 mg/dL Low 74-106 [facility] Comment on above: Performed By: #### L 505.5000, L501.9100, L500.2500, L100.0100 #### [facility] [address] [place], [address] Potassium [Moles/Vol] 3.7 mmol/L Normal 3.5-5.1 [facility] Comment on above: Performed By: #### L 505.5000, L501.9100, L500.2500, L100.0100 #### [facility] [address] [place], [address] Sodium [Moles/Vol] 127 mmol/L Low 136-145 [facility] Comment on above: Performed By: #### L 505.5000, L501.9100, L500.2500, L100.0100 #### [facility] [address] [place], [address] Urea nitrogen [Mass/Vol] 13 mg/dL Normal 7-18 [facility] Comment on above: Performed By: #### L 505.5000, L501.9100, L500.2500, L100.0100 #### [facility] [address] [place], [address] Bedside Glucoseon 11-10-2023 FINGERSTICK GLU 94 mg/dL Normal 74-106 [facility] Comment on above: Result Comment: RIP MACIEL OF PATIENT CARE PER NURSING PROTOCOL Performed By: #### L 501.080 #### [facility] [address] [place], [address] CBC W/Diff, Automatedon 10-16 IG% 0.900 Normal 0.0-0.9 [facility] Comment on above: Result Comment: IG% - Immature Granulocytes (promyelocytes, myelocytes and metamyelocytes) > 1% indicates that a LEFT SHIFT is Present. Performed By: #### L 505.5000, L501.9100, L500.2500, L100.0100 #### [facility] [address] [place], [address] MCHC (RBC) [Mass/Vol] 35.5 g/dL Normal 32-36 [facility] Comment on above: Performed By: #### L 505.5000, L501.9100, L500.2500, L100.0100 #### [facility] [address] [place], [address] Nucleated RBC (Bld) [#/Vol] 0 10*3/uL Normal 0-5 [facility] Comment on above: Performed By: #### L 505.5000, L501.9100, L500.2500, L100.0100 #### [facility] [address] [place], [address] RDW SD 43.8 fl Normal 35.1-43.9 [facility] Comment on above: Performed By: #### L 505.5000, L501.9100, L500.2500, L100.0100 #### [facility] [address] [place], [address] Emergency Department Summary on 11-10-2023 Emergency Department Summary [facility] Medical Records Department [address] [place] [address] Emergency Department Summary 11/10/23 MR#: [id number] Acct: [id number] Name: DAYNE MEYER Rep #: [id number] : 1975 48 From: Jos Garrison DO PCP: KEVIN HAIRSTON Status:ADM IN Location: MS3 EA070-0 HPI History of Present Illness Chief Complaint: Substance Abuse Informant: patient Onset/Context/Timing Onset: Today Context: Gradual Onset Timing: Continuous Worsened by: PTSD, depression, and anxiety Relieved by: Nothing Associated Symptoms Associated Symptoms: Negative for vomiting*, diarrhea*, fever*, rash*, seizure, tremor, palpatations, suicidal ideation or homicidal ideation Narrative Narrative: Patient presents requesting detox from alcohol. Patient states he drinks every day. Patient states the amount he drinks varies from day-to-day. Patient states he drinks whenever I can get my hands on. Patient states he has a history of PTSD, depression, and anxiety which exacerbate his drinking. Patient denies any nausea or vomiting. Patient denies any seizures or tremors. Patient denies any suicidal homicidal ideations currently. Patient admits to chronic neck and back pain. Patient denies any other symptoms. Patient has never been to detox before. [facility] Medical History (Updated 11/10/23 @ 17:[address] Jos Garrison, ) Degeneration of spine PTSD (post-traumatic stress disorder) Alcohol abuse Anxiety Depression Diabetes SOB (shortness of breath) HTN (hypertension) Home Medications ???Medication ???Instructions ???Recorded ???Last Taken ???Type albuterol sulfate 90 mcg/actuation 1 puff inhalation Q4H PRN PRN 11/10/23 Unknown History aerosol inhaler wheezing apixaban 5 mg tablet (Eliquis) 5 mg PO BID 11/10/23 Unknown History atorvastatin 10 mg tablet 10 mg PO DAILY 11/10/23 Unknown History carvedilol 25 mg tablet 12.5 mg PO BID 11/10/23 Unknown History cetirizine 10 mg tablet 10 mg PO DAILY 11/10/23 Unknown History fluoxetine 60 mg tablet 60 mg PO DAILY 11/10/23 Unknown History glipizide 2.5 mg tablet, extended 2.5 mg PO DAILY 11/10/23 Unknown History release 24 hr lisinopril 10 1 tab PO DAILY 11/10/23 Unknown History mg-hydrochlorothiazid e 12.5 mg tablet meloxicam 15 mg tablet 15 mg PO DAILY 11/10/23 Unknown History metformin 1,000 mg tablet 1,000 mg PO BID 11/10/23 Unknown History Allergy/AdvReac Type Severity Reaction Status Date / Time No Known Allergies Allergy Verified 11/10/23 14:39 Surgical History (Updated 11/10/23 @ 16:[address] Jos Garrison DO) History of carpal tunnel surgery Social History household members: spouse housing: house Smoking Status: Current every day smoker tobacco type: cigarettes alcohol intake: never ROS ROS ED Constitutional Constitutional ED: Denies chills or fever(s) Eyes Eyes: Denies blurry vision or change in vision ENT ENT ED: Denies rhinorrhea or sore throat Cardiovascular Cardiovascular: Denies chest pain or palpitations Respiratory/Chest Respiratory/Chest: Denies cough or dyspnea Gastrointestinal Gastrointestinal: Denies nausea or vomiting Genitourinary Genitourinary ED: Denies dysuria or hematuria Musculoskeletal Musculoskeletal: Reports back pain and neck pain Integumentary Denies abscess or rash Neurologic Neurologic: Denies headache(s) or weakness Allergic/Immunologic Allergic/Immunologic ED: Denies mouth swelling or urticaria EXAM Physical Exam Const Vital Signs: 11/10/23 14:39 11/10/23 16:38 Temperature 96.1 F L Temperature Source Temporal Pulse Rate 83 78 Respiratory Rate 18 19 H Blood Pressure 130/84 H 116/49 L Blood Pressure Mean 99 71 Pulse Ox 99 99 Oxygen Delivery Method Room Air Room Air Positive well nourished and well developed General Appearance ED: well developed and NAD HEENT Reports moist mucous membranes Neck supple and no JVD Resp normal respiratory effort and clear to auscultation bilaterally Cardio regular rate and regular rhythm GI soft to palpation, non-tender and non-distended Neuro oriented x3, CN's II-XII intact bilaterally and no sensory deficits noted Jose Coma Scale: document GCS findings Spontaneous Obeys Commands Oriented 15 Sensorium / Orientation: alert Speech: speech normal Motor Exam: strength 5/5 throughout Psych mental status grossly normal and thought process normal MDM MDM MDM Narrative Medical decision making narrative: Medical screening labs will be obtained. CBC will be obtained to assess for leukocytosis and anemia. Basic metabolic profile will be obtained to assess for electrolyte abnormality and renal function. Serum alcohol level will be obtained to assess for alcoho (more content not included)... Normal [facility] H AND P Exam - [facility] 11-10-2023 H&P Exam - Hospitalist [facility] Medical Records Department [address] [place] [address] [facility] MR#: [id number] Acct: [id number] Name: DAYNE MEYER Rep #: [id number] : 1975 48 From: Wandy Pittman MD PCP: KEVIN HAIRSTON Status:ADM IN Location: [facility] [id number] HPI - General General Date of Admission: 11/10/23 Date of Service: 11/10/23 Chief Complaint: ETOH detox HPI Narrative DAYNE MEYER, is a 48 M with a history of tobacco use, hypertension, diabetes, tobacco use, degenerative disc disease, depression and anxiety and alcohol use who presented to [facility] ED 11/10/2023 at the urging of his counselor for alcohol detox. Used to drink occasionally but has been drinking roughly daily since March and will drink as much as he can get and is much as he can afford which can be anywhere from a couple beers to 6-12 beers based on conversation, last drink 2 hours prior to arrival and he had sixpack this morning. He reports he has been homeless for the past 5 days after breaking up with his girlfriend and he called his counselor who recommended he come in for alcohol detox and further help. Patient said he thinks he borders on unhealthy alcohol use more so than alcohol dependence but acknowledges he does need help. No previous detox and presently reports chronic pain and some swelling in his legs from dangling them/sitting up for the past 5 days due to homelessness but no other new or acute complaints, no shakiness, no nausea or vomiting. Reports primarily feeling anxious and depressed. [facility] Medical History (Updated 11/10/23 @ 19:01 by Angely Moore) Alcohol abuse Anxiety Degeneration of spine Depression Depression Diabetes HTN (hypertension) PTSD (post-traumatic stress disorder) Restless legs Smoker SOB (shortness of breath) Home Medications ???Medication ???Instructions ???Recorded ???Last Taken ???Type albuterol sulfate 90 mcg/actuation 1 puff inhalation Q4H PRN PRN 11/10/23 Unknown History aerosol inhaler wheezing apixaban 5 mg tablet (Eliquis) 5 mg PO BID 11/10/23 Unknown History atorvastatin 10 mg tablet 10 mg PO DAILY 11/10/23 Unknown History carvedilol 25 mg tablet 12.5 mg PO BID 11/10/23 Unknown History cetirizine 10 mg tablet 10 mg PO DAILY 11/10/23 Unknown History fluoxetine 60 mg tablet 60 mg PO DAILY 11/10/23 Unknown History glipizide 2.5 mg tablet, extended 2.5 mg PO DAILY 11/10/23 Unknown History release 24 hr lisinopril 10 1 tab PO DAILY 11/10/23 Unknown History mg-hydrochlorothiazid e 12.5 mg tablet meloxicam 15 mg tablet 15 mg PO DAILY 11/10/23 Unknown History metformin 1,000 mg tablet 1,000 mg PO BID 11/10/23 Unknown History Allergy/AdvReac Type Severity Reaction Status Date / Time No Known Allergies Allergy Verified 11/10/23 14:39 Surgical History (Updated 11/10/23 @ 16:[address] Jos Garrison, ) History of carpal tunnel surgery Social History household members: spouse housing: house Smoking Status: Current every day smoker tobacco type: cigarettes alcohol intake: never ROS ROS Narrative General: Denies fever/chills HENT: Denies headache, denies stuffy nose, denies sore throat EYES: Denies changes in vision Resp: Denies cough, denies shortness of breath Cardiac: Denies chest pain GI: Denies abdominal pain, denies changes in bowel, denies nausea/vomiting : Denies changes in urination Extremity: Has some bilateral lower extremity swelling MSK: Has chronic back problems/back pain Neuro: Denies any numbness/tingling Heme: Denies any bleeding or bruising Skin: Denies rashes Psychiatric: Feels anxious and depressed Vital Signs Vital Signs Vital Signs: 11/10/23 14:39 11/10/23 16:38 Temperature 96.1 F L Temperature Source Temporal Pulse Rate 83 78 Respiratory Rate 18 19 H Blood Pressure 130/84 H 116/49 L Blood Pressure Mean 99 71 Pulse Ox 99 99 Oxygen Delivery Method Room Air Room Air Physical Exam Narrative General: Alert, oriented, no apparent distress HEENT: Atraumatic, normocephalic Eyes: Anicteric, normal conjunctiva, extraocular movements grossly intact Neck: Supple Respiratory: Normal respiratory effort, diffuse wheezing Cardiovascular: Regular rate GI: Soft, nontender, nondistended Extremities: 1+ bilateral lower extremity edema and prominent veins Musculoskeletal: Moving all extremities Neuro: No overt focal neurological deficits Skin: No rashes appreciated Psych: Cooperative Results Lab / Micro Data 11/10/23 15:56 11/10/23 15:56 Labs: Laboratory Results - last 24 hr 11/10/23 15:56: WBC 11.6 H, RBC 4.43 L, Hgb 14.8, Hct 41.7, MCV 94.1 H, MCH 33.4 H, MCHC 35.5, RDW Std Deviation 43.8, RDW Coeff of Rachel 12.7, Pl (more content not included)... Normal [facility] Urine Drug Screen (VISTA)on 11-10-2023 AMPHETAMINES Negative Normal <1000 ng/mL [facility] Comment on above: Performed By: #### L 505.5000, L501.9100, L500.2500, L100.0100 #### [facility] [address] [place], [place], [id number] BARBITIURATES Negative Normal < 200 ng/mL [facility] Comment on above: Performed By: #### L 505.5000, L501.9100, L500.2500, L100.0100 #### [facility] [address] [place], [address] BENZODIAZIPINE Negative Normal < 200 ng/mL [facility] Comment on above: Performed By: #### L 505.5000, L501.9100, L500.2500, L100.0100 #### [facility] [address] [place], [address] COCAINE Negative Normal < 300 ng/mL [facility] Comment on above: Performed By: #### L 505.5000, L501.9100, L500.2500, L100.0100 #### [facility] [address] [place], [address] ECSTACY Negative Normal < 500 ng/mL [facility] Comment on above: Performed By: #### L 505.5000, L501.9100, L500.2500, L100.0100 #### [facility] [address] [place], [address] METHADONE Negative Normal < 300 ng/mL [facility] Comment on above: Performed By: #### L 505.5000, L501.9100, L500.2500, L100.0100 #### [facility] [address] [place], [address] OPIATES Negative Normal < 300 ng/mL [facility] Comment on above: Performed By: #### L 505.5000, L501.9100, L500.2500, L100.0100 #### [facility] [address] [place], [address] PCP Negative Normal < 25 ng/mL [facility] Comment on above: Performed By: #### L 505.5000, L501.9100, L500.2500, L100.0100 #### [facility] [address] [place], [address] THC Negative Normal < 50 ng/mL [facility] Comment on above: Performed By: #### L 505.5000, L501.9100, L500.2500, L100.0100 #### [facility] [address] [place], [address] VISTA UDS PH 4 Normal [facility] Comment on above: Performed By: #### L 505.5000, L501.9100, L500.2500, L100.0100 #### [facility] [address] [place], [address] XR HIP 3-4 VIEWS BILATERALon 07-30-2023 XR HIP 3-4 VIEWS BILATERAL ORIGINAL EXAMINATION: 1 x-ray view of the pelvis, 2 x-ray views of the right hip and 2 x-ray views of the left hip 07/29/2023 12:07 pm COMPARISON: None. HISTORY: ORDERING SYSTEM PROVIDED HISTORY: Reason for Exam: bilateral hip pain FINDINGS: The iliopectineal and ilioischial lines are intact. Enthesopathy seen in the pelvis. Severe joint space loss noted in the hips bilaterally. 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 Associated femoroacetabular spurring seen. No fractures identified. Degenerative changes seen of the visualized lumbar spine. 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 Ages 30-39 = 107 mL/min/1.73 sq.m. Ages 40-49 = 99 mL/min/1.73 sq.m. Ages 50-59 = 93 mL/min/1.73 sq.m. Ages 60-69 = 85 mL/min/1.73 sq.m. Ages 70+ = 75 mL/min/1.73 sq.m. Chronic Kidney Disease: Less than 60 mL/min/1.73 square meters End Stage Renal Disease: Less than 15 mL/min/1.73 square meters Performed By: #### G FR, A1C, BMP #### [address] [address] GFR Non- 91 ml/min/1.73sqm Normal [facility] ([place]) Comment on above: Result Comment: GFR Population mean for , Non- Americans Ages 20-29 = 116 mL/min/1.73 sq.m. Ages 30-39 = 107 mL/min/1.73 sq.m. Ages 40-49 = 99 mL/min/1.73 sq.m. Ages 50-59 = 93 mL/min/1.73 sq.m. Ages 60-69 = 85 mL/min/1.73 sq.m. Ages 70+ = 75 mL/min/1.73 sq.m. Chronic Kidney Disease: Less than 60 mL/min/1.73 square meters End Stage Renal Disease: Less than 15 mL/min/1.73 square meters Performed By: #### G FR, A1C, BMP #### [address] [address] A1Con 07-29-2023 HbA1c (Bld) [Mass fraction] 5.9 % Normal 4.3-6.4 [facility] ([place]) Comment on above: Performed By: #### G FR, A1C, BMP #### [address] [address] BMPon 07-29-2023 BUN/Creatinine Ratio 12 ratio Normal 7-27 [facility] ([place]) Comment on above: Performed By: #### G FR, A1C, BMP #### [address] [address] Calcium [Mass/Vol] 8.9 mg/dL Normal 8.4-10.2 [facility] ([place]) Comment on above: Performed By: #### G FR, A1C, BMP #### [address] [address] Chloride [Moles/Vol] 96 mmol/L Low 98-107 [facility] ([place]) Comment on above: Performed By: #### G FR, A1C, BMP #### [address] [address] CO2 [Moles/Vol] 27 mmol/L Normal 22-29 [facility] ([place]) Comment on above: Performed By: #### G FR, A1C, BMP #### [address] [address] Creatinine [Mass/Vol] 0.89 mg/dL Normal 0.70-1.30 [facility] [place] Comment on above: Performed By: #### G FR, A1C, BMP #### [address] [address] Electrolyte Balance 10.0 mEq/L Normal 4.0-15.0 [facility] ([place]) Comment on above: Performed By: #### G FR, A1C, BMP #### [address] [address] Glucose [Mass/Vol] 133 mg/dL High 70-105 [facility] ([place]) Comment on above: Performed By: #### G FR, A1C, BMP #### [address] [address] Potassium [Moles/Vol] 4.7 mmol/L Normal 3.5-5.1 [facility] [place] Comment on above: Performed By: #### G FR, A1C, BMP #### [address] [address] Sodium [Moles/Vol] 133 mmol/L Low 136-145 [facility] ([place]) Comment on above: Performed By: #### G FR, A1C, BMP #### [address] [address] Urea nitrogen [Mass/Vol] 11 mg/dL Normal 7-18 [facility] ([place]) Comment on above: Performed By: #### G FR, A1C, BMP #### [address] [address] LABORATORYOrdered By: SYSTEM SYSTEM on 07-29-2023 Calcium [Mass/Vol] 8.9 mg/dL Normal 8.4 - 10. 2 mg/dL AO ADM SS Chloride [Moles/Vol] 96 mmol/L Low 98 - 10 7 mmol/L AO ADM SS CO2 [Moles/Vol] 27 mmol/L Normal 22 - 29 mmol/L AO ADM SS Creatinine [Mass/Vol] 0.89 mg/dL Normal 0.70 - 1.30 mg/dL AO ADM SS Electrolyte Balance 10.0 mEq/L Normal 4.0 - 15 .0 mEq/L AO ADM SS GFR/1.73 sq M.predicted among blacks MDRD (S/P/Bld) [Vol rate/Area] 111 ml/min/1.73sqm Invalid Interpretation Code AO Chemistry S Comment on above: Interpretive Data: GFR Population mean for , Non- Americans Ages 20-29 = 116 mL/min/1.73 sq.m. Ages 30-39 = 107 mL/min/1.73 sq.m. Ages 40-49 = 99 mL/min/1.73 sq.m. Ages 50-59 = 93 mL/min/1.73 sq.m. Ages 60-69 = 85 mL/min/1.73 sq.m. Ages 70+ = 75 mL/min/1.73 sq.m. Chronic Kidney Disease: Less than 60 mL/min/1.73 square meters End Stage Renal Disease: Less than 15 mL/min/1.73 square meters GFR/1.73 sq M.predicted among non-blacks MDRD (S/P/Bld) [Vol rate/Area] 91 ml/min/1.73sqm Invalid Interpretation Code AO Chemistry S Comment on above: Interpretive Data: GFR Population mean for , Non- Americans Ages 20-29 = 116 mL/min/1.73 sq.m. Ages 30-39 = 107 mL/min/1.73 sq.m. Ages 40-49 = 99 mL/min/1.73 sq.m. Ages 50-59 = 93 mL/min/1.73 sq.m. Ages 60-69 = 85 mL/min/1.73 sq.m. Ages 70+ = 75 mL/min/1.73 sq.m. Chronic Kidney Disease: Less than 60 mL/min/1.73 square meters End Stage Renal Disease: Less than 15 mL/min/1.73 square meters Glucose [Mass/Vol] 133 mg/dL High 70 - 105 mg/dL AO ADM SS HbA1c (Bld) [Mass fraction] 5.9 % Normal 4.3 - 6.4 % AO ADM SS Potassium [Moles/Vol] 4.7 mmol/L Normal 3.5 - 5.1 mmol/L AO ADM SS Sodium [Moles/Vol] 133 mmol/L Low 136 - 145 mmol/L AO ADM SS Urea nitrogen [Mass/Vol] 11 mg/dL Normal 7 - 18 mg/dL AO ADM SS Urea nitrogen/Creatinine [Mass ratio] 12 ratio Normal 7 - 27 ratio AO ADM SS .GFRon 03-21-2023 GFR Non- 82 ml/min/1.73sqm Normal [facility] ([place]) Comment on above: Result Comment: GFR Population mean for , Non- Americans Ages 20-29 = 116 mL/min/1.73 sq.m. Ages 30-39 = 107 mL/min/1.73 sq.m. Ages 40-49 = 99 mL/min/1.73 sq.m. Ages 50-59 = 93 mL/min/1.73 sq.m. Ages 60-69 = 85 mL/min/1.73 sq.m. Ages 70+ = 75 mL/min/1.73 sq.m. Chronic Kidney Disease: Less than 60 mL/min/1.73 square meters End Stage Renal Disease: Less than 15 mL/min/1.73 square meters Performed By: #### L IPID, GFR, CMP #### [place] [address] GFR 99 ml/min/1.73sqm Normal [facility] ([place]) Comment on above: Result Comment: GFR Population mean for , Non- Americans Ages 20-29 = 116 mL/min/1.73 sq.m. Ages 30-39 = 107 mL/min/1.73 sq.m. Ages 40-49 = 99 mL/min/1.73 sq.m. Ages 50-59 = 93 mL/min/1.73 sq.m. Ages 60-69 = 85 mL/min/1.73 sq.m. Ages 70+ = 75 mL/min/1.73 sq.m. Chronic Kidney Disease: Less than 60 mL/min/1.73 square meters End Stage Renal Disease: Less than 15 mL/min/1.73 square meters Performed By: #### L IPID, GFR, CMP #### [address] [address] CMPon 03-21-2023 Albumin Level 3.6 G/dL Normal 3.5-5.0 [facility] ([place]) Comment on above: Performed By: #### L IPID, GFR, CMP #### [address] [address] Albumin/Globulin [Mass ratio] 0.9 {ratio} Low 1.1-2.5 [facility] ([place]) Comment on above: Performed By: #### L IPID, GFR, CMP #### [address] [address] ALP [Catalytic activity/Vol] 96 U/L Normal 40-135 [facility] ([place]) Comment on above: Performed By: #### L IPID, GFR, CMP #### [address] [address] ALT [Catalytic activity/Vol] 44 U/L Normal 16-63 [facility] ([place]) Comment on above: Performed By: #### L IPID, GFR, CMP #### [address] [address] AST [Catalytic activity/Vol] 39 U/L Normal 10-40 [facility] ([place]) Comment on above: Performed By: #### L IPID, GFR, CMP #### [address] [address] Bili Total 1.0 mg/dL Normal 0.2-1.0 [facility] ([place]) Comment on above: Result Comment: Use of this assay is not recommended for patients undergoing treatment with eltrombopag due to the potential for falsely elevated results. Performed By: #### L IPID, GFR, CMP #### [address] [address] BUN/Creatinine Ratio 15 ratio Normal 7-27 [facility] ([place]) Comment on above: Performed By: #### L IPID, GFR, CMP #### [address] [address] Calcium [Mass/Vol] 9.7 mg/dL Normal 8.4-10.2 [facility] ([place]) Comment on above: Performed By: #### L IPID, GFR, CMP #### [address] [address] Chloride [Moles/Vol] 95 mmol/L Low 98-107 [facility] ([place]) Comment on above: Performed By: #### L IPID, GFR, CMP #### [address] [address] CO2 [Moles/Vol] 27 mmol/L Normal 22-29 [facility] ([place]) Comment on above: Performed By: #### L IPID, GFR, CMP #### [address] [address] Creatinine [Mass/Vol] 0.98 mg/dL Normal 0.70-1.30 [facility] [place] Comment on above: Performed By: #### L IPID, GFR, CMP #### [address] [address] Electrolyte Balance 13.0 mEq/L Normal 4.0-15.0 [facility] ([place]) Comment on above: Performed By: #### L IPID, GFR, CMP #### [address] [address] Globulin 4.2 G/dL Normal [facility] ([place]) Comment on above: Performed By: #### L IPID, GFR, CMP #### [address] [address] Glucose [Mass/Vol] 227 mg/dL High 70-105 [facility] ([place]) Comment on above: Performed By: #### L IPID, GFR, CMP #### [address] [address] Potassium [Moles/Vol] 5.8 mmol/L High 3.5-5.1 [facility] [place] Comment on above: Performed By: #### L IPID, GFR, CMP #### [place] [address] [place], [place] [address] Sodium [Moles/Vol] 135 mmol/L Low 136-145 [facility] ([place]) Comment on above: Performed By: #### L IPID, GFR, CMP #### [place] [address] [place], [place] [address] Total Protein 7.8 G/dL Normal 6.4-8.2 [facility] ([place]) Comment on above: Performed By: #### L IPID, GFR, CMP #### [place] [address] [place], [place] [address] Urea nitrogen [Mass/Vol] 15 mg/dL Normal 7-18 [facility] ([place]) Comment on above: Performed By: #### L IPID, GFR, CMP #### [address] [address] LABORATORYOrdered By: SYSTEM SYSTEM on 03-21-2023 Albumin BCP dye [Mass/Vol] 3.6 G/dL Normal 3.5 - 5.0 G/dL AO ADM SS Albumin/Globulin [Mass ratio] 0.9 {ratio} Low 1.1 - 2.5 ratio AO ADM SS ALP [Catalytic activity/Vol] 96 U/L Normal 40 - 135 U/L AO ADM SS ALT With P-5'-P [Catalytic activity/Vol] 44 U/L Normal 16 - 63 U/L AO ADM SS AST With P-5'-P [Catalytic activity/Vol] 39 U/L Normal 10 - 40 U/L AO ADM SS Bilirubin [Mass/Vol] 1.0 mg/dL Normal 0.2 - 1 .0 mg/dL AO ADM SS Comment on above: Interpretive Data: U se of this assay is not recommended for patients undergoing treatment with eltrombopag due to the potential for falsely elevated results. Calcium [Mass/Vol] 9.7 mg/dL Normal 8.4 - 10. 2 mg/dL AO ADM SS Chloride [Moles/Vol] 95 mmol/L Low 98 - 10 7 mmol/L AO ADM SS CO2 [Moles/Vol] 27 mmol/L Normal 22 - 29 mmol/L AO ADM SS Creatinine [Mass/Vol] 0.98 mg/dL Normal 0.70 - 1.30 mg/dL AO ADM SS Electrolyte Balance 13.0 mEq/L Normal 4.0 - 15 .0 mEq/L AO ADM SS GFR/1.73 sq M.predicted among blacks MDRD (S/P/Bld) [Vol rate/Area] 99 ml/min/1.73sqm Invalid Interpretation Code AO Chemistry S Comment on above: Interpretive Data: GFR Population mean for , Non- Americans Ages 20-29 = 116 mL/min/1.73 sq.m. Ages 30-39 = 107 mL/min/1.73 sq.m. Ages 40-49 = 99 mL/min/1.73 sq.m. Ages 50-59 = 93 mL/min/1.73 sq.m. Ages 60-69 = 85 mL/min/1.73 sq.m. Ages 70+ = 75 mL/min/1.73 sq.m. Chronic Kidney Disease: Less than 60 mL/min/1.73 square meters End Stage Renal Disease: Less than 15 mL/min/1.73 square meters GFR/1.73 sq M.predicted among non-blacks MDRD (S/P/Bld) [Vol rate/Area] 82 ml/min/1.73sqm Invalid Interpretation Code AO Chemistry S Comment on above: Interpretive Data: GFR Population mean for , Non- Americans Ages 20-29 = 116 mL/min/1.73 sq.m. Ages 30-39 = 107 mL/min/1.73 sq.m. Ages 40-49 = 99 mL/min/1.73 sq.m. Ages 50-59 = 93 mL/min/1.73 sq.m. Ages 60-69 = 85 mL/min/1.73 sq.m. Ages 70+ = 75 mL/min/1.73 sq.m. Chronic Kidney Disease: Less than 60 mL/min/1.73 square meters End Stage Renal Disease: Less than 15 mL/min/1.73 square meters Globulin 4.2 G/dL Invalid Interpretation Code AO ADM SS Glucose [Mass/Vol] 227 mg/dL High 70 - 105 mg/dL AO ADM SS Potassium [Moles/Vol] 5.8 mmol/L High 3.5 - 5.1 mmol/L AO ADM SS Protein [Mass/Vol] 7.8 G/dL Normal 6.4 - 8.2 G/dL AO ADM SS Sodium [Moles/Vol] 135 mmol/L Low 136 - 145 mmol/L AO ADM SS Urea nitrogen [Mass/Vol] 15 mg/dL Normal 7 - 18 mg/dL AO ADM SS Urea nitrogen/Creatinine [Mass ratio] 15 ratio Normal 7 - 27 ratio AO ADM SS LABORATORYOrdered By: Yasir Paredes on 03-21-2023 Cholesterol [Mass/Vol] 187 mg/dL Normal 0 - 200 mg/dL AO ADM SS Comment on above: Interpretive Data: C holesterol Reference Interval: Less than 200 Desirable 200-239 Borderline high risk 240 and above High risk Cholesterol in HDL [Mass/Vol] 47 mg/dL Normal 40 - 60 mg/dL AO ADM SS Cholesterol in LDL [Mass/Vol] 102 mg/dL Normal 0 - 130 mg/dL AO ADM SS Triglyceride [Mass/Vol] 188 mg/dL High 0 - 150 mg/dL AO ADM SS Comment on above: Interpretive Data: T riglyceride Reference Interval: Less than 150 Normal 150-199 Borderline high risk 200-499 High risk 500 or higher Very high risk Albumin DL <= 20 mg/L (U) [Mass/Vol] 3598 mcg/dL Invalid Interpretation Code AO ADM SS Albumin/Creatinine DL <= 20 mg/L (U) [Mass ratio] 42 mcg/mg High 0 - 30 mcg/mg AO ADM SS Creatinine (U) [Mass/Vol] 85.1 mg/dL Normal 39.0 - 259.0 mg/dL AO ADM SS LIPIDon 03-21-2023 Cholesterol [Mass/Vol] 187 mg/dL Normal 0-200 [facility] ([place]) Comment on above: Result Comment: Chol esterol Reference Interval: Less than 200 Desirable 200-239 Borderline high risk 240 and above High risk Performed By: #### L IPID, GFR, CMP #### [address] [place], [place] [address] Cholesterol in HDL [Mass/Vol] 47 mg/dL Normal 40-60 [facility] ([place]) Comment on above: Performed By: #### L IPID, GFR, CMP #### [place] [address] [place], [place] [address] Cholesterol in LDL [Mass/Vol] 102 mg/dL Normal 0-130 [facility] ([place]) Comment on above: Performed By: #### L IPID, GFR, CMP #### [place] [address] [place], [place] [address] Triglyceride [Mass/Vol] 188 mg/dL High 0-150 [facility] ([place]) Comment on above: Result Comment: Trig lyceride Reference Interval: Less than 150 Normal 150-199 Borderline high risk 200-499 High risk 500 or higher Very high risk Performed By: #### L IPID, GFR, CMP #### [place] [address] [place], [place] [address] MALBRon 03-21-2023 U Creatinine 85.1 mg/dL Normal 39.0-259.0 [facility] ([place]) Comment on above: Performed By: #### M ALBR #### [address] [address] U Microalb 3598 mcg/dL Normal [facility] ([place]) Comment on above: Performed By: #### M ALBR #### [address] [address] U Ratio Alb/Cre 42 mcg/mg High 0-30 [facility] ([place]) Comment on above: Performed By: #### M ALBR #### [address] [address] LABORATORYOrdered By: SYSTEM SYSTEM on 10-11-2022 Basophil, Absolute 0.1 103/mcL Invalid Interpretation Code 0.0 - 0.2 10^3/mcL AO Workflow SS Basophils/100 WBC (Bld) 0.6 % Invalid Interpretation Code 0.0 - 2.5 % AO Workflow SS Calcium [Mass/Vol] 9.0 mg/dL Invalid Interpretation Code 8.4 - 10.2 mg/dL AO ADM SS Chloride [Moles/Vol] 96 mmol/L Invalid Interpretation Code 98 - 107 mmol/L AO ADM SS CO2 [Moles/Vol] 25 mmol/L Invalid Interpretation Code 22 - 29 mmol/L AO ADM SS Creatinine [Mass/Vol] 1.00 mg/dL Invalid Interpretation Code 0.70 - 1.30 mg/dL AO ADM SS Electrolyte Balance 12.0 mEq/L Invalid Interpretation Code 4.0 - 15.0 mEq/L AO ADM SS Eosinophil, Absolute 0.2 103/mcL Invalid Interpretation Code 0.0 - 0.4 10^3/mcL AO Workflow SS Eosinophils/100 WBC (Bld) 2.2 % Invalid Interpretation Code 0.0 - 7.0 % AO Workflow SS Erythrocyte distribution width (RBC) [Ratio] 15.3 % Invalid Interpretation Code 11.5 - 14.5 % AO Workflow SS GFR/1.73 sq M.predicted among blacks MDRD (S/P/Bld) [Vol rate/Area] 97 ml/min/1.73sqm Invalid Interpretation Code AO Chemistry S Comment on above: Interpretive Data: GFR Population mean for , Non- Americans Ages 20-29 = 116 mL/min/1.73 sq.m. Ages 30-39 = 107 mL/min/1.73 sq.m. Ages 40-49 = 99 mL/min/1.73 sq.m. Ages 50-59 = 93 mL/min/1.73 sq.m. Ages 60-69 = 85 mL/min/1.73 sq.m. Ages 70+ = 75 mL/min/1.73 sq.m. Chronic Kidney Disease: Less than 60 mL/min/1.73 square meters End Stage Renal Disease: Less than 15 mL/min/1.73 square meters GFR/1.73 sq M.predicted among non-blacks MDRD (S/P/Bld) [Vol rate/Area] 80 ml/min/1.73sqm Invalid Interpretation Code AO Chemistry S Comment on above: Interpretive Data: GFR Population mean for , Non- Americans Ages 20-29 = 116 mL/min/1.73 sq.m. Ages 30-39 = 107 mL/min/1.73 sq.m. Ages 40-49 = 99 mL/min/1.73 sq.m. Ages 50-59 = 93 mL/min/1.73 sq.m. Ages 60-69 = 85 mL/min/1.73 sq.m. Ages 70+ = 75 mL/min/1.73 sq.m. Chronic Kidney Disease: Less than 60 mL/min/1.73 square meters End Stage Renal Disease: Less than 15 mL/min/1.73 square meters Glucose [Mass/Vol] 198 mg/dL Invalid Interpretation Code 70 - 105 mg/dL AO ADM SS Hematocrit (Bld) [Volume fraction] 52.3 % Invalid Interpretation Code 42.0 - 52.0 % AO Workflow SS Hemoglobin (Bld) [Mass/Vol] 18.5 G/dL Invalid Interpretation Code 14.0 - 18.0 G/dL AO Workflow SS Lymphocyte, Absolute 2.0 103/mcL Invalid Interpretation Code 0.8 - 3.9 10^3/mcL AO Workflow SS Lymphocytes/100 WBC (Bld) 22.5 % Invalid Interpretation Code 10.0 - 50.0 % AO Workflow SS MCH (RBC) [Entitic mass] 35.2 pg Invalid Interpretation Code 27.0 - 31.2 pg AO Workflow SS MCHC 35.3 G/dL Invalid Interpretation Code 31.8 - 35.4 G/dL AO Workflow SS MCV (RBC) [Entitic vol] 99.7 fL Invalid Interpretation Code 80.0 - 94.0 fL AO Workflow SS Monocyte distribution width Auto (Bld) [Entitic vol] 19.90 1 Invalid Interpretation Code 0.00 - 20.00 AO Workflow SS Comment on above: Result Comment: For ED adult patients suspected of sepsis, MDW<=20.0 does not rule out sepsis or risk of sepsis Monocyte, Absolute 1.0 103/mcL Invalid Interpretation Code 0.2 - 1.0 10^3/mcL AO Workflow SS Monocytes/100 WBC (Bld) 11.5 % Invalid Interpretation Code 1.7 - 13.0 % AO Workflow SS Neutrophil, Absolute 5.5 103/mcL Invalid Interpretation Code 2.9 - 6.2 10^3/mcL AO Workflow SS Neutrophils/100 WBC (Bld) 63.2 % Invalid Interpretation Code 37.0 - 80.0 % AO Workflow SS Platelet mean volume (Bld) [Entitic vol] 7.3 fL Invalid Interpretation Code 7.4 - 10.4 fL AO Workflow SS Platelets (Bld) [#/Vol] 204 103/mcL Invalid Interpretation Code 130 - 400 10^3/mcL AO Workflow SS Potassium [Moles/Vol] 5.0 mmol/L Invalid Interpretation Code 3.5 - 5.1 mmol/L AO ADM SS RBC (Bld) [#/Vol] 5.25 106/mcL Invalid Interpretation Code 4.04 - 6.13 10^6/mcL AO Workflow SS Sodium [Moles/Vol] 133 mmol/L Invalid Interpretation Code 136 - 145 mmol/L AO ADM SS Troponin I.cardiac DL <= 0.01 ng/mL [Mass/Vol] 17.5 ng/L Invalid Interpretation Code 0.0 - 76.2 ng/L AO ADM SS Urea nitrogen [Mass/Vol] 13 mg/dL Invalid Interpretation Code 7 - 18 mg/dL AO ADM SS Urea nitrogen/Creatinine [Mass ratio] 13 ratio Invalid Interpretation Code 7 - 27 ratio AO ADM SS WBC (Bld) [#/Vol] 8.8 103/mcL Invalid Interpretation Code 4.6 - 10.8 10^3/mcL AO Workflow SS LABORATORYOrdered By: SYSTEM SYSTEM on 09-24-2022 Basophil, Absolute 0.0 103/mcL Invalid Interpretation Code 0.0 - 0.2 10^3/mcL AO Workflow SS Basophils/100 WBC (Bld) 0.6 % Invalid Interpretation Code 0.0 - 2.5 % AO Workflow SS Calcium [Mass/Vol] 9.5 mg/dL Invalid Interpretation Code 8.4 - 10.2 mg/dL AO ADM SS Chloride [Moles/Vol] 98 mmol/L Invalid Interpretation Code 98 - 107 mmol/L AO ADM SS CO2 [Moles/Vol] 28 mmol/L Invalid Interpretation Code 22 - 29 mmol/L AO ADM SS Creatinine [Mass/Vol] 1.02 mg/dL Invalid Interpretation Code 0.70 - 1.30 mg/dL AO ADM SS Electrolyte Balance 10.0 mEq/L Invalid Interpretation Code 4.0 - 15.0 mEq/L AO ADM SS Eosinophil, Absolute 0.2 103/mcL Invalid Interpretation Code 0.0 - 0.4 10^3/mcL AO Workflow SS Eosinophils/100 WBC (Bld) 2.3 % Invalid Interpretation Code 0.0 - 7.0 % AO Workflow SS Erythrocyte distribution width (RBC) [Ratio] 13.6 % Invalid Interpretation Code 11.5 - 14.5 % AO Workflow SS GFR/1.73 sq M.predicted among blacks MDRD (S/P/Bld) [Vol rate/Area] 94 ml/min/1.73sqm Invalid Interpretation Code AO Chemistry S GFR/1.73 sq M.predicted among non-blacks MDRD (S/P/Bld) [Vol rate/Area] 78 ml/min/1.73sqm Invalid Interpretation Code AO Chemistry S Glucose [Mass/Vol] 180 mg/dL Invalid Interpretation Code 70 - 105 mg/dL AO ADM SS HbA1c (Bld) [Mass fraction] 7.6 % Invalid Interpretation Code 4.3 - 6.4 % AO ADM SS Hematocrit (Bld) [Volume fraction] 52.8 % Invalid Interpretation Code 42.0 - 52.0 % AO Workflow SS Hemoglobin (Bld) [Mass/Vol] 18.4 G/dL Invalid Interpretation Code 14.0 - 18.0 G/dL AO Workflow SS Lymphocyte, Absolute 2.1 103/mcL Invalid Interpretation Code 0.8 - 3.9 10^3/mcL AO Workflow SS Lymphocytes/100 WBC (Bld) 21.0 % Invalid Interpretation Code 10.0 - 50.0 % AO Workflow SS MCH (RBC) [Entitic mass] 34.9 pg Invalid Interpretation Code 27.0 - 31.2 pg AO Workflow SS MCHC 34.9 G/dL Invalid Interpretation Code 31.8 - 35.4 G/dL AO Workflow SS MCV (RBC) [Entitic vol] 100.0 fL Invalid Interpretation Code 80.0 - 94.0 fL AO Workflow SS Monocyte, Absolute 0.9 103/mcL Invalid Interpretation Code 0.2 - 1.0 10^3/mcL AO Workflow SS Monocytes/100 WBC (Bld) 9.0 % Invalid Interpretation Code 1.7 - 13.0 % AO Workflow SS Neutrophil, Absolute 6.9 103/mcL Invalid Interpretation Code 2.9 - 6.2 10^3/mcL AO Workflow SS Neutrophils/100 WBC (Bld) 67.0 % Invalid Interpretation Code 37.0 - 80.0 % AO Workflow SS Platelet mean volume (Bld) [Entitic vol] 8.3 fL Invalid Interpretation Code 7.4 - 10.4 fL AO Workflow SS Platelets (Bld) [#/Vol] 259 103/mcL Invalid Interpretation Code 130 - 400 10^3/mcL AO Workflow SS Potassium [Moles/Vol] 5.1 mmol/L Invalid Interpretation Code 3.5 - 5.1 mmol/L AO ADM SS RBC (Bld) [#/Vol] 5.28 106/mcL Invalid Interpretation Code 4.04 - 6.13 10^6/mcL AO Workflow SS Sodium [Moles/Vol] 136 mmol/L Invalid Interpretation Code 136 - 145 mmol/L AO ADM SS TSH Qn 3.32 m[IU]/L Invalid Interpretation Code 0.36 - 3.74 mcIU/mL AO ADM SS Urea nitrogen [Mass/Vol] 13 mg/dL Invalid Interpretation Code 7 - 18 mg/dL AO ADM SS Urea nitrogen/Creatinine [Mass ratio] 13 ratio Invalid Interpretation Code 7 - 27 ratio AO ADM SS WBC (Bld) [#/Vol] 10.3 103/mcL Invalid Interpretation Code 4.6 - 10.8 10^3/mcL AO Workflow SS 36on 03-01-2022 SARS-CoV-2 (COVID-19) Ab IA Ql Reason for appointment diabetic, dis note Has patient tested positive for COVID or have a pending COVID test within the past 2 weeks (14 days)? No Has patient been exposed to anyone who tested positive for COVID within the past 2 weeks (14 days)? No Is patient currently having symptoms of cough, fever or shortness of breath? No Advise patient if any of the above changes prior to their appointment, please contact the office immediately. [address] 01-29-2022 36 VOICEMAIL IS FULL [address] 01-17-2022 36 I cannot refill thes e meds without a every 6-month exam and lab work. Patient overdue for checkup [place] [id number] I cannot refill this medicine without a renal function exam and ch up at least every 6 months. Needs an appointment. [place] [id number] Rx loaded [place] [phone] Medication name: metFORMIN (GLUCOPHAGE) 500 MG tablet Medication dosage: 500 mg (Miligrams Monthly quantity needed: 60 How many day supply requestin days Medication route: oral (PO) Medication administration time(s): 2 times a day (BID) If taking medication PRN, reason for taking medication: N/A If this is a controlled substance do you receive this or any other controlled medication from any other doctor or facility: N/A Ordering provider: Dr Simmons Date of last office visit: 06/27/21 Date of next office visit: none Date of last refill: (see medication tab): 06/27/21 Updated/Validated preferred pharmacy: Yes Patient instructed to contact the pharmacy prior to picking up the medication: Yes [facility] CNCDen 07-10-2021 CNCO Letter Text Normal [facility] Radha 03-01-2021 CNPN Telephone (GSTNOR) DAYNE MEYER ([id number]) 1975 M Date Time Provider Department 03/01/21 SHARIFA PICKETT During your visit today, we recorded the following information about you: Alia Leyva [facility] 03/01/2021 9:56 AM Signed Please enter screening colonoscopy order. Thank you Sharifa Pickett PA-C 03/01/2021 9:58 AM Signed Bowel Preparation Instructions for: Miralax-Gatorade Preparations IF YOU DO NOT FOLLOW THESE DIRECTIONS, YOUR COLONOSCOPY WILL BE CANCELLED. Ji Instructions: ? Your bowel must be empty so that your doctor can clearly view your colon. Follow all of the instructions in this handout EXACTLY as they are written. ? Do NOT eat any solid food the ENTIRE day before your colonoscopy. ? Buy your bowel preparation at least 5 days before your colonoscopy. ? Four (4) Dulcolax laxative tablets containing 5mg of bisacodyl each (NOT Dulcolax stool softener) ? One (1) 8.3oz. bottle Miralax (238 grams) or generic equivalent ? 2 x 32oz. Bottles of Gatorade (NOT RED) ? Diabetic Patients: Use G2 (Gatorade 2) TRANSPORTATION on the Day of Your Exam A responsible adult MUST be present with you at Check In prior to your colonoscopy and REMAIN in the endoscopy area until you are discharged. You are NOT ALLOWED to drive, take a taxi or bus, or leave the Endoscopy Center ALONE. If you do not have a responsible auto crane driver (family member or friend) with you to take you home, your exam cannot be done with sedation and will be cancelled. Please bring a list of all of your current medications, including any Ckeu-ysy-Mkkoudw medications with you. Medications If you take insulin, diabetic medications or blood thinners such as Coumadin (warfarin), Plavix (clopidogrel), Ticlid (ticlopidine hydrochloride), Agrylin (anagrelide), Xarelto (Rivaroxaban), Pradaxa (Dabigatran), Eliquis (Apixaban), and Effient (Prasugrel). You MUST call the doctors who orders those medicines for instructions on altering the dosage before your colonoscopy. All other medications should be taken the day of the exam with a sip of water including ASPIRIN. Five (5) Days Before Your Colonoscopy ? Do NOT take medicines that stop diarrhea - such as Imodium, Kaopectate, or Pepto Bismol. ? Do NOT take fiber supplements - such as Metamucil, Citrucel, or Perdiem. ? Do NOT take products that contain iron - such as multi-vitamins (the label lists what is in the products). Three (3) Days Before Your Colonoscopy ? Do NOT eat high-fiber foods - such as popcorn, beans, seeds (flax, sunflower, quinoa), multigrain bread, nuts, salad/vegetables, or fresh and dried fruit. 2 Bowel Preparation Instructions for: Miralax-Gatorade Preparations One (1) Day Before Your Colonoscopy ? Only drink clear liquids the ENTIRE DAY before your colonoscopy. Do NOT eat any solid foods. Drink at least 8 ounces of clear liquids every hour after waking up. The clear liquids you can drink include: Clear Liquid (NO RED LIQUIDS) DO NOT DRINK Gatorade, Pedialyte or Powerade Clear broth or bouillon Coffee or tea (no milk or non-dairy creamer) Carbonated and non-carbonated soft drinks Blayne-Aid or other fruit flavored drinks Strained fruit juices (no pulp) Jell-O, popsicles, hard candy Water Alcohol Milk or non-dairy creamers Noodles or vegetables in soup Juice with pulp Liquid you cannot see through Mix 1/2 of Miralax bottle (119 grams) in each 32 ounces of Gatorade bottle until dissolved. Keep cool in the refrigerator. DO NOT ADD ICE. The bowel preparation solution will be consumed in two parts. Part 1 ? 5:00 PM - Evening before your colonoscopy ? Take 4 Dulcolax tablets. ? 6 PM - Evening before your colonoscopy ? Drink 32 oz. of the mixed solution. ? Drink an 8 oz. glass of bowel preparation every 15 minutes for a total of 4 glasses. ? Fifteen (15) minutes later, drink an 8 oz. glass of of clear liquids every 15 minutes for a total of 2 glasses. ? You may continue to drink clear liquids till midnight. Part 2 ? On the day of your colonoscopy you may drink clear liquids up to (three) 3 hours prior to procedure. ? 4 hours before your colonoscopy ? Take another 32 oz. bottle of mixed solution. ? Drink an 8 oz. glass of bowel prep every 15 minutes for a total of 4 glasses. ? Fifteen (15) minutes later, drink an 8 oz. glass of clear liquids every 15 minutes for a total of 2 glasses. ? You may continue to drink clear liquids up to (three) 3 hours before your exam. 3 02/2019 Allergies As of Date: 03/01/2021 (Not on File) Date Reviewed: 09/20/2019 Reviewed by: Ro Sharif (Steph) STEPH Manzanares - Fully Assessed Reason for Visit: Orders [681] Primary Visit Diagnosis:Screening for colon cancer [Z12.11] Order(s):polyethylene glycol 3350 (MIRALAX, GLYCOLAX) 17 gram/dose powderUse as directed for Miralax / Gatorade Bowel Prep KitDisp (more content not included)... Normal [facility] CR Chest PA/LATon 05-29-2020 CR Chest PA/LAT Patient Name: DAYNE MEYER Diagnostic Radiology ACCESSION EXAM DATE/TIME PROCEDURE ORDERING PROVIDER [id number] 05/29/2020 11:10 EDT CR Chest PA and LAT DO SIMMONS EUGENE F. CPT code 24656 Reason For Exam (CR Chest PA and LAT) smoker Report CHEST, PA and LATERAL: INDICATION: Tobacco abuse COMPARISON: No previous studies are available for comparison. PA and lateral views of the chest were obtained. The heart is normal in size. The mediastinal silhouette is normal. The lungs are clear. There are no effusions or infiltrates. There is biapical pleural thickening. The osseous structures are unremarkable. IMPRESSION: Negative chest. Report Dictated on Final Dictating Physician: DO ELMORE ALFRED Signed Date and Time: 05/29/2020 1:11 pm Signed by: DO ELMORE ALFRED Transcribed Date and Time: 05/29/2020 1:12 Normal [facility] CR Hip w/ Pelvis 2 or 3 View s Lefton 05-29-2020 CR Hip w/ Pelvis 2 or 3 Views Left Patient Name: DAYNE MEYER Diagnostic Radiology ACCESSION EXAM DATE/TIME PROCEDURE ORDERING PROVIDER [id number] 05/29/2020 11:10 EDT CR Hip w/ Pelvis 2 or 3 DO SIMMONS EUGENE F. Views Left n CPT code 10076 Reason For Exam (CR Hip w/ Pelvis 2 or 3 Views Left n) left groin pain Report LEFT HIP and PELVIS: INDICATION: Left lower sternal pain COMPARISON: None. A frontal view of the pelvis and frontal and frog leg views of the left hip were obtained. The bone density appears normal. There are no fractures or dislocations. Joint space narrowing is noted bilaterally, left greater than right. There are no significant soft tissue abnormalities. 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 Report Dictated on Final Dictating Physician: DO ELMORE ALFRED Signed Date and Time: 05/29/2020 1:06 pm Signed by: DO ELMORE ALFRED Transcribed Date and Time: 05/29/2020 1:07 [facility] CR Spine Lumbosacral 4+ View son 05-29-2020 CR Spine Lumbosacral 4+ Views Patient Name: DAYNE MEYER Diagnostic Radiology ACCESSION EXAM DATE/TIME PROCEDURE ORDERING PROVIDER [id number] 05/29/2020 11:10 EDT CR Spine Lumbosacral 4+ DO SIMMONS EUGENE F. Views CPT code 16945 Reason For Exam (CR Spine Lumbosacral 4+ Views) lbp Report LUMBAR SPINE, 5 VIEWS: INDICATION: Low back pain COMPARISON: No previous studies are available for comparison. Frontal, bilateral oblique, lateral and coned-down lumbosacral spot views of the lumbar spine were obtained. There are 5 typical lumbar vertebrae. The bone mineral density is normal. The vertebral body heights are within normal limits. There is disc space narrowing and marginal spurring at L4-L5 as well as mild disc space narrowing at L3-L4. No spondylolisthesis nor spondylolysis is seen. The facet joints are within normal limits. No fracture is noted. The paravertebral soft tissues are unremarkable. IMPRESSION: Arthritic changes with disc space narrowing at L3-L4 and L4-L5. Report Dictated on Final Dictating Physician: DO ELMORE ALFRED Signed Date and Time: 05/29/2020 1:05 pm Signed by: DO ELMORE ALFRED Transcribed Date and Time: 05/29/2020 1:06 Normal [facility] XR CHEST (2 VW)on 05-29-2020 Patient Name: DAYNE MEYER Diagnostic Radiology ACCESSION EXAM DATE/TIME PROCEDURE ORDERING PROVIDER [id number] 05/29/2020 11:10 EDT CR Chest PA & LAT DO SIMMONS EUGENE F. CPT code 14560 Reason For Exam (CR Chest PA & LAT) smoker Report CHEST, PA & LATERAL: INDICATION: Tobacco abuse COMPARISON: No previous studies are available for comparison. PA and lateral views of the chest were obtained. The heart is normal in size. The mediastinal silhouette is normal. The lungs are clear. There are no effusions or infiltrates. There is biapical pleural thickening. The osseous structures are unremarkable. IMPRESSION: Negative chest. Report Dictated on --- Final --- Dictating Physician: DO ELMORE ALFRED Signed Date and Time: 05/29/2020 1:11 pm Signed by: DO ELMORE ALFRED Transcribed Date and Time: 05/29/2020 1:12 [facility] Work Phone: Matt, [facility] Incoming Radiology Results From [facility] - 05/29/2020 1:12 PM EDT Patient Name: DAYNE MEYER Diagnostic Radiology ACCESSION EXAM DATE/TIME PROCEDURE ORDERING PROVIDER [id number] 05/29/2020 11:10 EDT CR Chest PA & LAT DO SIMMONS EUGENE F. CPT code 83629 Reason For Exam (CR Chest PA & LAT) smoker Report CHEST, PA & LATERAL: INDICATION: Tobacco abuse COMPARISON: No previous studies are available for comparison. PA and lateral views of the chest were obtained. The heart is normal in size. The mediastinal silhouette is normal. The lungs are clear. There are no effusions or infiltrates. There is biapical pleural thickening. The osseous structures are unremarkable. IMPRESSION: Negative chest. Report Dictated on --- Final --- Dictating Physician: DO ELMORE ALFRED Signed Date and Time: 05/29/2020 1:11 pm Signed by: DO ELMORE ALFRED Transcribed Date and Time: 05/29/2020 1:12 [employer] Work Phone: XR HIP LEFT (2-3 VIEWS)on Patient Name: DAYNE MEYER Diagnostic Radiology ACCESSION EXAM DATE/TIME PROCEDURE ORDERING PROVIDER [id number] 05/29/2020 11:10 EDT CR Hip w/ Pelvis 2 or 3 DO SIMMONS EUGENE Lei. Views Left n CPT code 36841 Reason For Exam (CR Hip w/ Pelvis 2 or 3 Views Left n) left groin pain Report LEFT HIP & PELVIS: INDICATION: Left lower sternal pain COMPARISON: None. A frontal view of the pelvis and frontal and frog leg views of the left hip were obtained. The bone density appears normal. There are no fractures or dislocations. Joint space narrowing is noted bilaterally, left greater than right. There are no significant soft tissue abnormalities. 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 Report Dictated on --- Final --- Dictating Physician: DO ELMORE ALFRED Signed Date and Time: 05/29/2020 1:06 pm Signed by: DO ELMORE ALFRED Transcribed Date and Time: 05/29/2020 1:07 [facility] Work Phone: Matt, [facility] Incoming Radiology Results From [facility] - 05/29/2020 1:07 PM EDT Patient Name: DAYNE MEYER Diagnostic Radiology ACCESSION EXAM DATE/TIME PROCEDURE ORDERING PROVIDER [id number] 05/29/2020 11:10 EDT CR Hip w/ Pelvis 2 or 3 DO SIMMONS EUGENE F. Views Left n CPT code 06215 Reason For Exam (CR Hip w/ Pelvis 2 or 3 Views Left n) left groin pain Report LEFT HIP & PELVIS: INDICATION: Left lower sternal pain COMPARISON: None. A frontal view of the pelvis and frontal and frog leg views of the left hip were obtained. The bone density appears normal. There are no fractures or dislocations. Joint space narrowing is noted bilaterally, left greater than right. There are no significant soft tissue abnormalities. 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 Report Dictated on --- Final --- Dictating Physician: DO ELMORE ALFRED Signed Date and Time: 05/29/2020 1:06 pm Signed by: DO ELMORE ALFRED Transcribed Date and Time: 05/29/2020 1:07 [facility] Work Phone: XR LUMBAR SPINE (MIN 4 VIEWS )on 05-29-2020 Patient Name: DAYNE MEYER Diagnostic Radiology ACCESSION EXAM DATE/TIME PROCEDURE ORDERING PROVIDER [id number] 05/29/2020 11:10 EDT CR Spine Lumbosacral 4+ DO SIMMONS EUGENE F. Views CPT code 32349 Reason For Exam (CR Spine Lumbosacral 4+ Views) lbp Report LUMBAR SPINE, 5 VIEWS: INDICATION: Low back pain COMPARISON: No previous studies are available for comparison. Frontal, bilateral oblique, lateral and coned-down lumbosacral spot views of the lumbar spine were obtained. There are 5 typical lumbar vertebrae. The bone mineral density is normal. The vertebral body heights are within normal limits. There is disc space narrowing and marginal spurring at L4-L5 as well as mild disc space narrowing at L3-L4. No spondylolisthesis nor spondylolysis is seen. The facet joints are within normal limits. No fracture is noted. The paravertebral soft tissues are unremarkable. IMPRESSION: Arthritic changes with disc space narrowing at L3-L4 and L4-L5. Report Dictated on --- Final --- Dictating Physician: DO ELMORE ALFRED Signed Date and Time: 05/29/2020 1:05 pm Signed by: DO ELMORE ALFRED Transcribed Date and Time: 05/29/2020 1:06 [facility] Work Phone: Matt, [facility] Incoming Radiology Results From [facility] - 05/29/2020 1:06 PM EDT Patient Name: DAYNE MEYER Diagnostic Radiology ACCESSION EXAM DATE/TIME PROCEDURE ORDERING PROVIDER [id number] 05/29/2020 11:10 EDT CR Spine Lumbosacral 4+ DO SIMMONS EUGENE F. Views CPT code 80812 Reason For Exam (CR Spine Lumbosacral 4+ Views) lbp Report LUMBAR SPINE, 5 VIEWS: INDICATION: Low back pain COMPARISON: No previous studies are available for comparison. Frontal, bilateral oblique, lateral and coned-down lumbosacral spot views of the lumbar spine were obtained. There are 5 typical lumbar vertebrae. The bone mineral density is normal. The vertebral body heights are within normal limits. There is disc space narrowing and marginal spurring at L4-L5 as well as mild disc space narrowing at L3-L4. No spondylolisthesis nor spondylolysis is seen. The facet joints are within normal limits. No fracture is noted. The paravertebral soft tissues are unremarkable. IMPRESSION: Arthritic changes with disc space narrowing at L3-L4 and L4-L5. Report Dictated on --- Final --- Dictating Physician: DO ELMORE ALFRED Signed Date and Time: 05/29/2020 1:05 pm Signed by: DO ELMORE ALFRED Transcribed Date and Time: 05/29/2020 1:06 [facility] Work Phone: Vital Signs Date Time Vital Sign Value Performing Clinician Facility 05-28-2024 09:33-0400 Body height 185.4 cm Marcel Hinojosa MD Work Phone: [facility] 05-28-2024 09:33-0400 Body mass index (BMI) [Ratio] 37.6 kg/m2 Marcel Hinojosa MD Work Phone: [facility] 05-28-2024 09:33-0400 Body weight 129.28 kg Marcel Hinojosa MD Work Phone: [facility] 05-28-2024 09:30-0400 Body temperature 97.5 [degF] Marcel Hinojosa MD Work Phone: [facility] 05-28-2024 09:30-0400 Diastolic blood pressure 106 mm[Hg] Marcel Hinojosa MD Work Phone: [facility] 05-28-2024 09:30-0400 Heart rate 98 /min Marcel Hinojosa MD Work Phone: [facility] 05-28-2024 09:30-0400 Respiratory rate 17 /min Marcel Hinojosa MD Work Phone: [facility] 05-28-2024 09:30-0400 SaO2% (BldA) [Mass fraction] 98 % Marcel Hinojosa MD Work Phone: [facility] 05-28-2024 09:30-0400 Systolic blood pressure 177 mm[Hg] Marcel Hinojosa MD Work Phone: [facility] 05-27-2024 12:20-0400 Body temperature 97.5 [degF] No Physician [facility] 05-27-2024 12:20-0400 Diastolic blood pressure 99 mm[Hg] No Physician [facility] 05-27-2024 12:20-0400 Heart rate 95 /min No Physician [facility] 05-27-2024 12:20-0400 Respiratory rate 18 /min No Physician [facility] 05-27-2024 12:20-0400 SaO2% (BldA) [Mass fraction] 99 % No Physician [facility] 05-27-2024 12:20-0400 Systolic blood pressure 153 mm[Hg] No Physician [facility] 05-27-2024 12:17-0400 Body height 185.4 cm No Physician [facility] 05-27-2024 12:17-0400 Body mass index (BMI) [Ratio] 37.6 kg/m2 No Physician [facility] 05-27-2024 12:17-0400 Body weight 129.28 kg No Physician [facility] 04-26-2024 10:30-0500 Body temperature 98.4 [degF] Brad Ebbing PA-C Work Phone: [facility] 04-26-2024 10:30-0500 Diastolic blood pressure 79 mm[Hg] Brad Ebbing PA-C Work Phone: [facility] 04-26-2024 10:30-0500 Heart rate 73 /min Brad Ebbing PA-C Work Phone: [facility] 04-26-2024 10:30-0500 SaO2% (BldA) [Mass fraction] 96 % Brad Ebbing PA-C Work Phone: [facility] 04-26-2024 10:30-0500 Systolic blood pressure 128 mm[Hg] Brad Ebbing PA-C Work Phone: [facility] 10-11-2022 12:24-0400 Diastolic Blood Pressure Non-Invasive [address] NISHI MIDDLETON MD [facility] 10-11-2022 12:24-0400 Heart rate 89 /min DR NISHI MIDDLETON MD [facility] 10-11-2022 12:24-0400 Respiratory rate 16 /min DR NISHI MIDDLETON MD [facility] 10-11-2022 12:24-0400 Systolic Blood Pressure Non-Invasive [address] NISHI MIDDLETON MD [facility] 10-11-2022 11:49-0400 Diastolic Blood Pressure Non-Invasive [address] NISHI MIDDLETON MD [facility] 10-11-2022 11:49-0400 Heart rate 100 /min DR NISHI MIDDLETON MD [facility] 10-11-2022 11:49-0400 Respiratory rate 20 /min DR NISHI MIDDLETON MD [facility] 10-11-2022 11:49-0400 Systolic Blood Pressure Non-Invasive [address] NISHI MIDDLETON MD [facility] 10-11-2022 11:38-0400 Heart rate 142 /min DR NISHI MIDDLETON MD [facility] 10-11-2022 11:20-0400 Body temperature 98.6 [degF] DR NISHI MIDDLETON MD [facility] 10-11-2022 11:20-0400 Body weight 140.[address] NISHI MIDDLETON MD [facility] 10-11-2022 11:20-0400 Diastolic Blood Pressure Non-Invasive [address] NISHI MIDDLETON MD [facility] 10-11-2022 11:20-0400 Heart rate 146 /min DR NISHI MIDDLETON MD [facility] 10-11-2022 11:20-0400 Respiratory rate 20 /min DR NISHI MIDDLETON MD [facility] 10-11-2022 11:20-0400 Systolic Blood Pressure Non-Invasive [address] NISHI MIDDLETON MD [facility] Encounters Encounter Date Encounter Type Care Provider Facility Start: 09-06-2024 End: 09-06-2024 Emergency department patient visit No Primary Care Physician Facility:[facility] Start: 08-04-2024 ambulatory No Primary Car e Physician Facility:[facility] Start: 08-04-2024 End: 08-05-2024 Evaluation and management of inpatient No Primary Care Physician Facility:[facility] Start: 05-28-2024 End: 05-28-2024 Emergency department patient visit Marcel Hinojosa MD Work Phone: [facility] Comment on above: Dental abscess (Prim moe Dx) Start: 05-28-2024 End: 05-28-2024 Evaluation and management of inpatient Marcel Hinojosa MD Work Phone: [facility] Start: 05-27-2024 End: 05-27-2024 Emergency department patient visit NO PCP PHYSICIAN [facility] Comment on above: Pain, dental (Primar y Dx) Start: 05-27-2024 End: 05-27-2024 Evaluation and management of inpatient No Physician [facility] Start: 04-26-2024 End: 04-26-2024 Office outpatient new 30 minutes Brad Heredia PA-C Work Phone: [facility] Comment on above: Open wound of left g reat toe, subsequent encounter (Primary Dx) Start: 04-26-2024 End: 04-26-2024 ambulatory BRAD HEREDIA [facility] Start: 04-01-2024 End: 04-01-2024 Emergency department patient visit RICHARD [facility] Start: 03-26-2024 ambulatory Kristine L White Facility :[facility] Start: 03-26-2024 End: 03-29-2024 Evaluation and management of inpatient Kristine L White Facility:[facility] Start: 11-12-2023 ambulatory YAMILETH [employer] Fa cility:B Start: 11-10-2023 End: 11-13-2023 Evaluation and management of inpatient Wandy Pittman Facility:[facility] Start: 11-10-2023 ambulatory Wandy Pittman Facility:[facility] Start: 08-07-2023 ambulatory YAMILETH [employer] Fa cility:B Start: 07-29-2023 End: 07-29-2023 ambulatory YAMILETH [employer] Facility:[facility] Start: 07-29-2023 End: 07-29-2023 Patient encounter procedure YAMILETH [employer]IST[employer] [facility] Start: 03-21-2023 End: 03-25-2023 ambulatory YAMILETH [employer]IST[employer] Facility:[facility] Start: 03-21-2023 End: 03-25-2023 Outreach Lab YAMILETH [employer] [facility] Start: 01-13-2023 End: 01-13-2023 ambulatory GURWINDER FARRIS MD Facility:[facility] Start: 01-13-2023 End: 01-13-2023 Patient encounter procedure GURWINDER FARRIS MD [facility] Start: 12-09-2022 ambulatory YAMILETH [employer] Fa cility:B Start: 10-11-2022 End: 10-11-2022 Emergency department patient visit DR NISHI MIDDLETON MD [facility] Start: 09-24-2022 End: 09-28-2022 Outreach Lab YAMILETH [employer] [facility] Start: 08-20-2021 End: 08-20-2021 Subsequent hospital visit by physician Xavier Simmons DO Work Phone: [facility] Comment on above: Radiculopathy, lumba r region; Lumbar radiculopathy, chronic Start: 05-29-2020 End: 05-29-2020 Subsequent hospital visit by physician Xavier Simmons Work Phone: [facility] Comment on above: Smoker; Left groin pain; Chronic bilateral low back pain with bilateral sciatica Procedures Date Procedure Procedure Detail Performing Clinician Start: 05-29-2020 Radex hip unilateral with pelvis 2-3 views Xavier Simmons Work Phone: Start: 05-29-2020 Radex spine lumbosac ral minimum 4 views Xavier Simmons Work Phone: Start: 05-29-2020 Radiologic exam ches t 2 views Xavier Simmons Work Phone: Decompression of med beau nerve [employer] 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) [employer] Comment on above: surgery Plan of Treatment Date Care Activity Detail Author Start: 11-14-2028 Tetanus vaccination Tetanus: Every 10yrs [facility] Start: 04-01-2025 Diabetes: Annual GFR (Glomerular Filtration Rate) Diabetes: Annual GFR (Glomerular Filtration Rate) [facility] Start: 04-01-2025 Hypertension/CHF/CAD Annual BMP Blood Test Hypertension/CHF/CAD Annual BMP Blood Test [facility] Start: 04-01-2025 Urine screening for protein eGFR Diabetes [facility] Start: 05-27-2024 Adolescent depression screening assessment Depression Screening [facility] Start: 05-27-2024 Diabetes: Annual Urine Albumin-Creatinine Ratio (uACR) Diabetes: Annual Urine Albumin-Creatinine Ratio (uACR) [facility] Start: 05-27-2024 Hemoglobin A1c measurement Diabetes: Blood Sugar Control Test (HGBA1C) [facility] Start: 05-27-2024 HIV screening HIV Screening [facility] Start: 05-27-2024 Lipid panel Cholesterol Screening (Lipid Panel) [facility] Start: 05-27-2024 Screening for malignant neoplasm of colon Colorectal Cancer Screening: Colonoscopy [facility] Start: 05-27-2024 Social Influencers of Health Screening Social Influencers of Health Screening [facility] Start: 11-16-2023 COVID-19 Vaccine ( season) COVID-19 Vaccine ( season) [facility] Start: 11-16-2023 Influenza vaccination Influenza Vaccine (#1) [facility] Start: 04-17-2023 DTaP,Tdap,and Td Vaccines (2 - Td or Tdap) DTaP,Tdap,and Td Vaccines (2 - Td or Tdap) [facility] Start: 07-03-2022 COVID-19 Vaccine (1) COVID-19 Vaccine (1) [facility] Comment on above: Postponed from 09/18/1979 (Patient Refus ed) Start: 06-27-2022 Depression Monitoring Depression Monitoring [facility] Start: 02-05-2022 Influenza vaccination Flu vaccine (Season Ended) [facility] Comment on above: Postponed from 11/15/2021 (Patient Refus ed) Start: 12-01-2021 Diabetic foot examination Diabetic foot exam [facility] Start: 09-26-2021 End: 09-26-2021 Patient encounter procedure 09/26/2021 Office Visit Family Medicine Xavier Simmons DO [address] [place] [id number] [facility] Start: 05-31-2021 Hemoglobin A1c measurement A1C [facility] Start: 05-29-2021 Diabetic microalbuminuria test Diabetic microalbuminuria test [facility] Work Phone: Start: 05-29-2021 Pneumococcal 0-64 years Vaccine (2 - PCV) Pneumococcal 0-64 years Vaccine (2 - PCV) [facility] Start: 05-29-2021 Pneumococcal Vaccine: Ped or At-Risk (2 of 2 - PCV) Pneumococcal Vaccine: Ped or At-Risk (2 of 2 - PCV) [facility] Start: 05-29-2021 Pneumococcal Vaccine: Pediatrics (0 to 5 Years) and At-Risk Patients (6 to 64 Years) (2 of 2 - PCV) Pneumococcal Vaccine: Pediatrics (0 to 5 Years) and At-Risk Patients (6 to 64 Years) (2 of 2 - PCV) [facility] Start: 05-29-2021 Urine screening for protein Diabetic microalbuminuria test [facility] Start: 03-29-2021 Creatinine measurement Creatinine monitoring [facility] Work Phone: Start: 03-29-2021 Potassium monitoring Potassium monitoring [facility] Work Phone: Start: 03-02-2021 Hemoglobin A1c measurement A1C test (Diabetic or Prediabetic) [facility] Start: 08-21-2020 End: 08-21-2020 Office Visit 08/21/2020 Office Visit Family Medicine Xavier Simmons DO [address], [place] [id number] [facility] Start: 06-27-2020 HbA1c (Bld) [Mass fraction] A1C test (Diabetic or Prediabetic) [facility] Work Phone: Start: 11-16-2019 Influenza vaccination Flu vaccine (#1) [facility] Work Phone: Start: 09-18-2019 Screening for malignant neoplasm of colon [facility] Start: 04-18-2013 DTaP/Tdap/Td vaccine (1 - Tdap) DTaP/Tdap/Td vaccine (1 - Tdap) [facility] Start: 1993 DTaP/Tdap/Td vaccine (1 - Tdap) DTaP/Tdap/Td vaccine (1 - Tdap) [facility] Work Phone: Start: 1993 Hepatitis A Vaccines (1 of 2 - Risk 2-dose series) Hepatitis A Vaccines (1 of 2 - Risk 2-dose series) [facility] Start: 1993 Hepatitis B vaccine (1 of 3 - Risk 3-dose series) Hepatitis B vaccine (1 of 3 - Risk 3-dose series) [facility] Start: 1993 Hepatitis B Vaccines (1 of 3 - 19+ 3-dose series) Hepatitis B Vaccines (1 of 3 - 19+ 3-dose series) [facility] Start: 1992 Diabetic retinal exam Diabetic retinal exam [facility] Start: 1992 Hepatitis C screening Hepatitis C Screening [facility] Start: 1990 COVID-19 Vaccine (1) COVID-19 Vaccine (1) [facility] Work Phone: Start: 1989 HIV screening [facility] Start: 1986 Depression screening using PHQ-9 (Patient Health Questionnaire 9) score Depression Screening/Follow-Up (PHQ-2/9) [facility] Start: 1984 Diabetes: Annual Retina Eye Exam Diabetes: Annual Retina Eye Exam [facility] Start: 1984 Diabetic foot examination [facility] Start: 1984 Diabetic retinal exam Diabetic retinal exam [facility] Work Phone: Start: 1984 Glaucoma screening Diabetic Eye Exam [facility] Start: 1984 Lipid panel [facility] Start: 1984 Urine screening for protein Urine (micro)albumin/creatinine ratio - Diabetes [facility] Start: 1977 History and physical examination, annual for health maintenance Wellness Visit [facility] Start: 1974 Hepatitis C screening Hepatitis C screen [employer] Work Phone: Start: 1974 Prostate specific antigen measurement PSA Level [facility] Start: 1974 Screening for malignant neoplasm of colon [facility] End: 05-29-2020 XR HIP 2-3 VW W PELVIS LEFT XR HIP 2-3 VW W PELVIS LEFT Imaging Routine Left groin pain 1 Occurrences starting 05/29/2020 until 05/29/2020 [employer] Work Phone: Comment on above: 1 Occurrences starting 05/29/2020 until 05/29/2020 Immunizations Immunization Date Immunization Notes Care Provider Divina salvador 05-29-2020 pneumococcal polysaccharide vaccine, 23 valent Xavier Simmons [employer] Work Phone: Comment on above: Result Comment: 2022: VIS DATE: 01/13/2019 11-14-2018 tetanus toxoid, redu joey diphtheria toxoid, and acellular pertussis vaccine, adsorbed YAMILETH [employer] ASSIST[employer] [facility] Payers Date Payer Category Payer Medicaid (Managed Care) 1.2. [id number] 5 2023 Self-pay 2021 Private Health Insurance [id number] 2020 Private Health Insurance [id number] 1974 Unknown [id number] 2.16.8 [id number] 1974 Unknown [id number] 2.16.8 40.1.153614.3.579.2.627 1974 Unknown [id number] 2.16.8 40.1.697708.3.579.2.627 1974 Unknown [id number] 2.16.8 40.1.326654.3.579.2.627 1974 Unknown [id number] 2.16.8 40.1.725026.3.579.2.627 1974 Unknown [id number] 2.16.8 40.1.227111.3.579.2.627 1974 Unknown [id number] 2.16. 840.1.718693.3.579.2.902 1974 Unknown [id number] 2.16. 840.1.949887.3.579.2.900 1974 Unknown [id number] 2.16. 840.1.326204.3.579.2.1143 1974 Unknown [id number] 2.16. 840.1.344103.3.579.2.1143 Unknown [id number] 2.16.8 40.1.589972.3.579.2.462 Unknown [id number] 2.16.8 40.1.366726.3.579.2.462 Unknown [id number] 2.16.8 40.1.349071.3.579.2.462 Unknown [id number] 2.16.8 40.1.761163.3.579.2.462 Unknown [id number] 2.16.8 40.1.258348.3.579.2.462 Unknown [id number] 2.16.8 40.1.293123.3.579.2.462 Unknown [id number] 2.16.8 40.1.364900.3.579.2.462 Unknown [id number] 2.16.8 40.1.349893.3.579.2.462 Unknown [id number] 2.16.8 40.1.051718.3.579.2.462 Unknown [id number] 2.16.8 40.1.597895.3.579.2.462 Unknown [id number] 2.16.8 40.1.340898.3.579.2.462 Unknown [id number] 2.16.8 40.1.726108.3.579.2.462 Unknown [id number] 2.16.8 40.1.513924.3.579.2.462 Unknown [id number] 2.16.8 40.1.064947.3.579.2.462 Unknown [id number] 2.16.8 40.1.033884.3.579.2.462 Social History Date Type Detail Facility Start: 05-29-2020 End: 05-27-2024 Tobacco smoking status PAIS Current every day smoker [employer] Work Phone: Start: 03-26-1989 History of tobacco use Cigarette Smo ker [employer] Work Phone: Start: 05-29-2020 End: 04-26-2024 Cigarettes smoked current (pack per day) - Reported [employer] Work Phone: Start: 05-29-2020 End: 05-27-2024 Tobacco use and exposure Never used [facility] Phone: Start: 05-29-2020 End: 06-27-2021 Alcohol intake Current drinker of alcohol (finding) [facility] Phone: Start: 03-29-2020 End: 06-27-2021 History SDOH Alcohol Frequency 5 [facility] Phone: Start: 03-29-2020 History SDOH Social Connections Phone 4 [facility] Phone: Start: 03-29-2020 History SDOH Social Connections Get Together 2 [facility] Phone: Start: 03-29-2020 History SDOH Social Connections [employer] 3 [facility] Phone: Start: 03-29-2020 End: 06-27-2021 History SDOH Social Connections Meetings 1 [facility] Phone: Start: 03-29-2020 History SDOH Physica l Activity DPW 0 [employer] Work Phone: Start: 1975 Sex Assigned At Not on file S [facility] Work Phone: Start: 11-16-2018 End: 07-29-2023 Tobacco smoking status Heavy tobacco smoker (finding) [facility] Sex Assigned At Sex [facility] Start: 04-26-2024 End: 05-28-2024 Alcoholic beverage intake Ex-drinker (finding) [facility] Start: 04-26-2024 Tobacco use panel [facility] Start: 05-27-2024 Sex Male (finding) [facility] Functional Status Date Assessment Result Facility 10-11-2022 Functional Status Standard Safet y ID band on, Call device within reach, Bed in low position, Wheels locked, Upper/Half-Length side-rails up, Bedside Cart Locked, Safety level maintained [facility] Mental Status Date Assessment Result Facility 10-11-2022 Mental Status Orientation Oriented x 4 [facility] Clinical Notes 10-11-2022 to 08-06-2024 Sanjay Shah LPN - 05/28/2024 9:50 AM Candace Hinojosa MD - 05/28/2024 9:27 AM EDTDischarge InstructionsSanjay Shah FLATBED OWNER OPERATOR - 05/27/2024 1:30 PM Brad Pizano PA-C - 04/26/2024 11:36 AM EST Note Date & Type Note Facility 08-06-2024 Note [facility] Medical Records Department [address] [place] [address] Discharge Summary 08/06/24 1601 MR#: [id number] Acct: [id number] Name: DAYNE MEYER Rep #: [id number] : 1975 48 From: Ronnie Witt DO PCP: Care Physician,No Primary Status:DIS IN Location: [facility] [id number] Providers Date of Admission: 08/04/24 Date of Discharge: 08/05/24 Primary Care Physician: No Primary Care Phys Reason For Visit: ACUTE ETOH INTOXICATION IN THE SETTING OF Diagnosis Discharge Diagnosis (1) Alcohol abuse: Status: Acute Code(s): F10.10 - Alcohol abuse, uncomplicated (2) Desire for detoxification: Status: Acute Plan 1. Acute alcohol detox-continue with present medications, I talked with addiction child protective services social worker about perhaps finding a place for the patient to go for a longer stay and outpatient detox, she will be working on this. #2 type 2 diabetes-blood sugars will be monitored, sliding scale insulin was ordered per fingerstick blood sugars, patient's blood sugars have been on the high side, I have elected to place the patient on oral medications at this time-Amaryl and metformin and continue to monitor blood sugars. #3 class III obesity-complicates care, management, recovery, and prognosis #4 essential hypertension-I will place the patient back on lisinopril and hydrochlorothiazide at this time, he is also on Coreg #5 homelessness-complicates care, management, recovery, and prognosis Total clinical time spent by myself addressing patient's medical issues, reviewing all of his data, and collaborating with the patient's care team: 35 minutes Medications at Discharge Home Medications albuterol sulfate 90 mcg/actuation aerosol inhaler 1 puff inhalation Q4H PRN PRN wheezing 11/10/23 apixaban 5 mg tablet (Eliquis) 5 mg PO BID 11/10/23 atorvastatin 10 mg tablet 10 mg PO DAILY 11/10/23 carvedilol 25 mg tablet 12.5 mg PO BID 11/10/23 cetirizine 10 mg tablet 10 mg PO DAILY 11/10/23 fluoxetine 60 mg tablet 60 mg PO DAILY 11/10/23 glipizide 2.5 mg tablet, extended release 24 hr 2.5 mg PO DAILY 11/10/23 lisinopril 10 mg-hydrochlorothiazide 12.5 mg tablet 1 tab PO DAILY 11/10/23 meloxicam 15 mg tablet 15 mg PO DAILY 11/10/23 metformin 1,000 mg tablet 1,000 mg PO BID 11/10/23 empagliflozin 25 mg tablet (Jardiance) 25 mg PO DAILY 03/26/24 gabapentin 300 mg capsule 300 mg PO TID 03/26/24 Hospital Course Operations None Procedures None Summary of Care Provided Minutes Spent on Discharge: 31 Hospital Course: This 48-year-old white male was seen in the emergency room at [facility] requesting services for alcohol detox. Patient was admitted to [place] [address] and orders were entered using the alcohol detox order set, he was seen in consultation by addiction child protective services social worker. Plans were made for the patient to go to an inpatient detox center, at the last minute on 08/05/2024, patient decided to go home instead, he signed out AMA. Patient was seen in the morning by myself: On examination he appeared in good health and spirits. Vital signs as documented. Skin warm and dry and without overt rashes. Neck without JVD, neck was supple, trachea midline, thyroid was normal. Lungs clear bilaterally, normal air movement was noted. Heart exam notable for regular rhythm, normal sounds and absence of murmurs, rubs or gallops. Abdomen unremarkable and without evidence of organomegaly, masses, or abdominal aortic enlargement. Bowel sounds are present, abdomen is not distended. Extremities nonedematous, no cyanosis was noted, no clubbing was noted. Neuro: Cranial nerves II through XII are grossly intact, no focal motor deficits were noted, sensation to light touch and pinprick intact, motor exam 5/5 throughout. Psych: Patient is alert and oriented x3, he does not appear anxious or depressed, he does not appear agitated. Patient was discharged AMA. Medical Records Data Homelessness:: Unsheltered Weight / BMI Weight Weight: 143.3 kg Body Mass Index (BMI) 41.6 ABG / Lab / Microbiology Data 08/04/24 04:45 08/04/24 04:45 Laboratory: Laboratory Results - last 24 hr 08/05/24 17:30: POC Glucose 241 H D/C Instructions DC O2, CPAP, BIPAP Needs Home O2 Discharge instructions: No DC home with Oxygen: No Meaningful Use Info Meaningful Use Meaningful Use Diagnoses (Choose all that apply): None applicable Ischemic Stroke Statin Dosing Therapy Reference: STATIN DOSE THERAPY REFERENCE: * Patients > 75 years receive moderate or high dose statin therapy. * Patients 75 years or YOUNGER should receive HIGH intensity statin dose unless contraindicated. You will be required to document reason for non-treatment if statin daily dose does not meet guidelines. HIGH DOSE STATIN THERAPY DAILY Atorvastatin > than or = to 40 mg Rosuv (more content not included)... [facility] 05-28-2024 History of Present illness Narrative STEPH BROWN reviewed and discussed plan of care with VICKY GARZA. Sanjay Shah LPN 05/28/24 [id number] Images from the original note were not included. Dayne Meyer is a 48 y.o. male presented with right upper tooth pain. Began about 4 to 5 days ago. No fevers, chills, sweats. No chest pain or difficulty breathing. No difficulty speaking or swallowing. Was seen yesterday and prescribed Augmentin which he has not gotten filled but noticed worsening pain and swelling on the periorbital region, came to the ED. No pain with ocular movements, no double vision or blurry vision Past Medical History: Diagnosis Date Diabetes mellitus ([facility]/HCC) Hypertension History reviewed. No pertinent surgical history. No Known Allergies Social History Socioeconomic History Marital status: Spouse name: Not on file Number of children: Not on file Years of education: Not on file Highest education level: Not on file Occupational History Not on file Tobacco Use Smoking status: Every Day Current packs/day: 0.50 Types: Cigarettes Smokeless tobacco: Never Vaping Use Vaping status: Never Used Substance and Sexual Activity Alcohol use: Not Currently Drug use: Never Sexual activity: Defer Other Topics Concern Not on file Social History Narrative Not on file Home Medications amoxicillin-clavulanate (AUGMENTIN) 875-125 mg per tablet Take 1 tablet by mouth 2 (two) times a day for 10 days. chlorhexidine (PERIDEX) 0.12 % solution Swish and spit 15 mL 2 (two) times a day for 10 days. rgporjvxnrrdfuz-wdvnofsd-uqnlzaxi f-erakifczfcx-cxcgbcziy (MAGIC MOUTHWASH) 04-620-658-40-200 mg/30 mL liquid suspension Take 10 mL by mouth 4 (four) times a day if needed (dental pain) for up to 7 days. HYDROcodone-acetaminophen (NORCO) 5-325 mg per tablet Take 1 tablet by mouth 4 (four) times a day if needed for severe pain for up to 3 days. Max Daily Amount: 4 tablets sulfamethoxazole-trimethoprim (BACTRIM DS,SEPTRA DS) 800-160 mg per tablet Take 2 tablets by mouth 2 (two) times a day for 10 days. Physical Exam Visit Vitals BP (!) 177/106 Pulse 98 Temp 36.4 C (97.5 F) (Oral) Resp 17 Ht 1.854 m (73) Wt 129 kg (285 lb) SpO2 98% BMI 37.60 kg/m Smoking Status Every Day BSA 2.5 m CONSTITUTIONAL: Well-appearing and well-nourished. HEAD: Normocephalic, atraumatic. EYES: No conjunctival injection, no icterus. Patient has normal ocular movements no pain with ocular movements. EARS: External ears appear normal. NOSE: Nose appears normal. No rhinorrhea. NECK: Trachea midline. RESPIRATORY: Normal chest excursion with respiration, no stridor. CARDIOVASCULAR: Regular rhythm. No cyanosis. GASTROINTESTINAL: Abdomen soft, non-distended, non-tender, without rigidity. NEUROLOGICAL: Awake, alert and oriented. PSYCHOLOGICAL: The patient's mood and manner are appropriate. Grooming and personal hygiene are appropriate. INTEGUMENTARY: Warm and dry. Patient with poor dentition, tooth #4 is tender to touch, he has right maxillary swelling exteriorly with some erythema and swelling in the infraorbital region, no fluctuance MSK: Medical Decision Making Patient is a 48 y.o. male presented ED with right-sided facial pain and swelling, does not involve the eye. I suspect dental origin but now appears to have a preseptal cellulitis as well. I consider getting labs and a CT scan but my suspicion of orbital cellulitis is low. Patient does not know what happened in the prescription for his antibiotic he was given yesterday, would like to double cover him with both Augmentin and Bactrim, will give short course of pain medication discussed importance of dentistry follow-up. He is not from [place] and plans felt his PCP was considering moving here so PCP information was provided ED Course as of 05/28/24 1036 FriMay 28, 2024 0950 Reviewed external record went to [facility] 04/26/2024 for a wound check [AH] ED Course User Index [AH] Marcel Hinojosa MD Clinical Impressions as of 05/28/24 1036 Dental abscess Impression Dental abscess Right-sided preorbital cellulitis Marcel Hinojosa MD 05/28/24 1038 documented in this encounter [facility] 05-27-2024 Hospital Discharge instructions Rosi Mantilla NP - 05/27/2024 1:59 PM EDT Thank you for your visit. I have provided prescriptions for antibiotics, mouthwash, and Magic mouthwash. Continue to use OTC Tylenol as directed. I encourage you to go to [facility] as soon as possible for follow-up. They take walk-ins until 3 PM Friday through Friday. Return to the ER for any new or worsening symptoms. documented in this encounter [facility] 05-27-2024 History of Present illness Narrative STEPH BROWN reviewed and discussed plan of care with VICKY DE LA CRUZ. Sanjay Shah LPN 05/27/24 1330 documented in this encounter [facility] 04-26-2024 Note Patient Name: James Meyer Date of Service: 04/26/2024 MR #: [id number] : 1975 Assessment & Plan: Open wound of left great toe -Improving -Continue daily dry dressing changes with warm soapy soaks -Completed antibiotics. No further need for antibiotics at this time -Follow up with PCP (Yamileth Cid, [facility]LD[facility] [address] [place] [address]) in 1-2 weeks Reason for Visit: Follow up for wound check History of Present Illness: Dayne Meyer is a 48 y.o. male referred from [facility] ED on 04/01/24 for wound check. Patient stubbed his toe on a door and a blood blister formed. It became an open wound which brought him to the ED. He was started on antibiotics. Since his ED visit, patient has been taking care on his left great toe. He has been living in a facility in the [facility]. The staff has been changing his dressing twice a day. They have been using a dry dressing on his wound. He has completed his antibiotics without complications. He feels his toe is getting better. Patient is concerned because he has neuropathy in his feet. He has been checking his blood sugar and it has been high normal. Deniesany fevers, chills, night sweats. Denies any drainage or erythema. History: Past Medical History: Diagnosis Date Depression Diabetes mellitus (HCC) Hypertension PTSD (post-traumatic stress disorder) History reviewed. No pertinent surgical history. Family History Problem Relation Age of Onset No Known Problems Mother No Known Problems Father Social History Socioeconomic History Marital status: Tobacco Use Smoking status: Every Day Current packs/day: 0.50 Types: Cigarettes Smokeless tobacco: Never Vaping Use Vaping status: Never Used Substance and Sexual Activity Alcohol use: Not Currently Drug use: Never Social Drivers of Health Financial Resource Strain: Low Risk (06/27/2021) Received from [facility] Overall Financial Resource Strain (CARDIA) Difficulty of Paying Living Expenses: Not hard at all Food Insecurity: No Food Insecurity (06/27/2021) Received from [facility] Hunger Vital Sign Worried About Running Out of Food in the Last Year: Never true Ran Out of Food in the Last Year: Never true Transportation Needs: No Transportation Needs (03/29/2020) Received from [facility] PRAPARE - Transportation Lack of Transportation (Medical): No Lack of Transportation (Non-Medical): No Physical Activity: Inactive (03/29/2020) Received from [facility] Exercise Vital Sign Days of Exercise per Week: 0 days Minutes of Exercise per Session: 0 min Stress: Stress Concern Present (03/29/2020) Received from [facility] [place] [facility] - Occupational Stress Questionnaire Feeling of Stress : Very much Social Connections: Moderately Isolated (03/29/2020) Received from [facility] Social Connection and Isolation Panel [NHANES] Frequency of Communication with Friends and Family: Three times a week Frequency of Social Gatherings with Friends and Family: Once a week Attends Synagogue Services: More than 4 times per year Active Member of Clubs or Organizations: No Attends Club or Organization Meetings: Never Marital Status: Patient has no known allergies. Home Medications: Current Outpatient Medications: albuterol-budesonide (AIRSUPRA) 90-80 mcg/actuation HFAA, 1 puff ., Disp: , Rfl: meloxicam (MOBIC) 15 MG tablet, Take 1 (one) tablet (15 mg total) by mouth daily as needed ., Disp: , Rfl: metFORMIN (GLUCOPHAGE) 500 MG tablet, 2 (two) times a day ., Disp: , Rfl: mirtazapine (REMERON) 15 MG tablet, , Disp: , Rfl: mirtazapine (REMERON) 30 MG tablet, , Disp: , Rfl: polyethylene glycol (GLYCOLAX) 17 gram/dose powder, Use as directed for Miralax / Gatorade Bowel Prep Kit, Disp: , Rfl: prazosin (MINIPRESS) 1 MG capsule, , Disp: , Rfl: QUEtiapine (SEROQUEL) 50 MG tablet, , Disp: , Rfl: ramelteon (ROZEREM) 8 mg tablet, , Disp: , Rfl: topiramate (TOPAMAX) 50 MG tablet, , Disp: , Rfl: Review of Systems: The following system(s) were reviewed and pertinent findings noted: Constitutional: No wt loss or gain ENT: No blurred vision, loss of hearing, head congestion or sore throat CV: No chest pain or palpitations Resp: No cough or shortness of breath GI: No nausea, vomiting, diarrhea, constipation, or abd pain Neuro: No headache, dizziness, or near syncope Integumentary: No rashes or bruising MuscSkel: No joint pain, swelling or weakness Allergic/Immunologic: No medication or seasonal allergies Psych: No Anxiety or depression Physical Exam: Vital Signs: )BP 128/79 (BP Location: Right arm, Patient Position: Sitting, BP Cuff Size: Adult) Pulse 73 Temp 98.4 degrees F (36.9 degrees C) (Oral) SpO2 96% Physical Exam (more content not included)... [facility] 04-26-2024 History of Present illness Narrative Images from the original note were not included. Patient Name: Dayne Meyer Date of Service: 04/26/2024 MR #: [id number] : 1975 Assessment & Plan: Open wound of left great toe -Improving -Continue daily dry dressing changes with warm soapy soaks -Completed antibiotics. No further need for antibiotics at this time -Follow up with PCP (Yamileth Cid CNP [facility] [address] [place] [id number]) in 1-2 weeks Reason for Visit: Follow up for wound check History of Present Illness: Dayne Meyer is a 48 y.o. male referred from [facility] ED on 04/01/24 for wound check. Patient stubbed his toe on a door and a blood blister formed. It became an open wound which brought him to the ED. He was started on antibiotics. Since his ED visit, patient has been taking care on his left great toe. He has been living in a facility in the [facility]. The staff has been changing his dressing twice a day. They have been using a dry dressing on his wound. He has completed his antibiotics without complications. He feels his toe is getting better. Patient is concerned because he has neuropathy in his feet. He has been checking his blood sugar and it has been high normal. Denies any fevers, chills, night sweats. Denies any drainage or erythema. History: Past Medical History: Diagnosis Date Depression Diabetes mellitus (HCC) Hypertension PTSD (post-traumatic stress disorder) History reviewed. No pertinent surgical history. Family History Problem Relation Age of Onset No Known Problems Mother No Known Problems Father Social History Socioeconomic History Marital status: Tobacco Use Smoking status: Every Day Current packs/day: 0.50 Types: Cigarettes Smokeless tobacco: Never Vaping Use Vaping status: Never Used Substance and Sexual Activity Alcohol use: Not Currently Drug use: Never Social Drivers of Health Financial Resource Strain: Low Risk (06/27/2021) Received from [facility] Overall Financial Resource Strain (CARDIA) Difficulty of Paying Living Expenses: Not hard at all Food Insecurity: No Food Insecurity (06/27/2021) Received from [facility] Hunger Vital Sign Worried About Running Out of Food in the Last Year: Never true Ran Out of Food in the Last Year: Never true Transportation Needs: No Transportation Needs (03/29/2020) Received from [facility] PRAPARE - Transportation Lack of Transportation (Medical): No Lack of Transportation (Non-Medical): No Physical Activity: Inactive (03/29/2020) Received from [facility] Exercise Vital Sign Days of Exercise per Week: 0 days Minutes of Exercise per Session: 0 min Stress: Stress Concern Present (03/29/2020) Received from [facility] [place] [facility] [employer] [facility] - Occupational Stress Questionnaire Feeling of Stress : Very much Social Connections: Moderately Isolated (03/29/2020) Received from [facility] Social Connection and Isolation Panel [NHANES] Frequency of Communication with Friends and Family: Three times a week Frequency of Social Gatherings with Friends and Family: Once a week Attends Synagogue Services: More than 4 times per year Active Member of Clubs or Organizations: No Attends Club or Organization Meetings: Never Marital Status: Patient has no known allergies. Home Medications: Current Outpatient Medications: albuterol-budesonide (AIRSUPRA) 90-80 mcg/actuation HFAA, 1 puff ., Disp: , Rfl: meloxicam (MOBIC) 15 MG tablet, Take 1 (one) tablet (15 mg total) by mouth daily as needed ., Disp: , Rfl: metFORMIN (GLUCOPHAGE) 500 MG tablet, 2 (two) times a day ., Disp: , Rfl: mirtazapine (REMERON) 15 MG tablet, , Disp: , Rfl: mirtazapine (REMERON) 30 MG tablet, , Disp: , Rfl: polyethylene glycol (GLYCOLAX) 17 gram/dose powder, Use as directed for Miralax / Gatorade Bowel Prep Kit, Disp: , Rfl: prazosin (MINIPRESS) 1 MG capsule, , Disp: , Rfl: QUEtiapine (SEROQUEL) 50 MG tablet, , Disp: , Rfl: ramelteon (ROZEREM) 8 mg tablet, , Disp: , Rfl: topiramate (TOPAMAX) 50 MG tablet, , Disp: , Rfl: Review of Systems: The following system(s) were reviewed and pertinent findings noted: Constitutional: No wt loss or gain ENT: No blurred vision, loss of hearing, head congestion or sore throat CV: No chest pain or palpitations Resp: No cough or shortness of breath GI: No nausea, vomiting, diarrhea, constipation, or abd pain Neuro: No headache, dizziness, or near syncope Integumentary: No rashes or bruising MuscSkel: No joint pain, swelling or weakness Allergic/Immunologic: No medication or seasonal allergies Psych: No Anxiety or depression Physical Exam: Vital Signs: )BP 128/79 (BP Location: Right arm, Patient Position: Sitting, BP Cuff Size: Adult) Pulse 73 Temp 98.4 F (36.9 C) (Oral) SpO2 96% Physical Exam Constitutional: Appearance: Normal appearance. Comments: Ambulates with a rolater walker at baseline HENT: Head: Normocephalic and atraumatic. Eyes: Extraocular Movements: Extraocular movements intact. Conjunctiva/sclera: Conjunctivae normal. Cardiovascular: Rate and Rhythm: Normal rate and regular rhythm. Pulses: Normal pulses. Heart sounds: Normal heart sounds. Pulmonary: Effort: Pulmonary effort is normal. Breath sounds: Normal breath sounds. Skin: General: Skin is warm and dry. Capillary Refill: Capillary refill takes less than 2 seconds. Comments: See pictures of left toe wound below Neurological: General: No focal deficit present. Mental Status: He is alert and oriented to person, place, and time. Psychiatric: Mood and Affect: Mood normal. Behavior: Behavior normal. Wound Check-Left Great Toe-R/S from [facility] on 04/05/24 Wound is getting better is dry and healing documented in this encounter [facility] 04-26-2024 Evaluation + Plan note Associated Problem(s): Open wound of left great toe -Improving -Continue daily dry dressing changes with warm soapy soaks -Completed antibiotics. No further need for antibiotics at this time -Follow up with PCP (Yamileth Cid, [facility] [address] [place] [id number]) in 1-2 weeks [facility] 04-26-2024 Miscellaneous Notes Associated Problem(s): Open wound of left great toe -Improving -Continue daily dry dressing changes with warm soapy soaks -Completed antibiotics. No further need for antibiotics at this time -Follow up with PCP (Yamileth Cid, [facility] [address] [place] [phone]) in 1-2 weeks documented in this encounter [facility] 04-26-2024 Instructions Brad Heredia PA-C - 04/26/2024 11:29 AM EST Wound Group Home Instructions: -Keep wound clean, dry, and covered while out in public. May leave open to air while sitting at home. Keep covered when sleeping. -Daily dressing changes: nonstick pad, gauze padding -May do soaks with dressing changes. Soak wound for 15-20 minutes in warm soapy water. Pat dry. Cover with dressing. Activity -You may resume your normal activity as tolerated. -Walking is encouraged. Slowly build up the length, time and distance you walk. -You can return to your normal routine when you feel ready. Call Your Provider if: -You have chills or a persistent fever 101 degrees F., increased swelling, redness or drainage at the incision site. -You have questions or concerns about your condition or care. Call 911 or go to the nearest emergency room if: -You start bleeding from your wound -You have trouble breathing all of a sudden. -You have chest pain. documented in this encounter [facility] 03-29-2024 Note [facility] Medical Records Department [address] [place] [address] Discharge Summary 03/29/24 0832 MR#: [id number] Acct: [id number] Name: DAYNE MEYER Rep #: [id number] : 1975 48 From: Wandy Pittman MD PCP: KEVIN HAIRSTON Status:ADM [id number] Prov[facility] Date of Admission: 03/26/24 Date of Discharge: 03/29/24 Primary Care Physician: KEVIN HAIRSTON Reason For Visit: ETOH WITHDRAWAL Diagnosis Discharge Diagnosis (1) Alcohol withdrawal: Status: Acute Code(s): F10.939 - Alcohol use, unspecified with withdrawal, unspecified Plan #Alcohol use disorder #Type 2 diabetes mellitus # Chronic peripheral neuropathy #Hypertension #Depression/anxiety #Tobacco use # Homelessness # History of a flutter 1 year ago Medications at Discharge Home Medications albuterol sulfate 90 mcg/actuation aerosol inhaler 1 puff inhalation Q4H PRN PRN wheezing 11/10/23 apixaban 5 mg tablet (Eliquis) 5 mg PO BID 11/10/23 atorvastatin 10 mg tablet 10 mg PO DAILY 11/10/23 carvedilol 25 mg tablet 12.5 mg PO BID 11/10/23 cetirizine 10 mg tablet 10 mg PO DAILY 11/10/23 fluoxetine 60 mg tablet 60 mg PO DAILY 11/10/23 glipizide 2.5 mg tablet, extended release 24 hr 2.5 mg PO DAILY 11/10/23 lisinopril 10 mg-hydrochlorothiazide 12.5 mg tablet 1 tab PO DAILY 11/10/23 meloxicam 15 mg tablet 15 mg PO DAILY 11/10/23 metformin 1,000 mg tablet 1,000 mg PO BID 11/10/23 empagliflozin 25 mg tablet (Jardiance) 25 mg PO DAILY 03/26/24 gabapentin 300 mg capsule 300 mg PO TID 03/26/24 Hospital Course Summary of Care Provided Minutes Spent on Discharge: 20 Hospital Course: Patient was admitted 03/26/2024 requesting detox from alcohol. Patient was admitted and detox protocol ordered. They completed a satisfactory amount of their detox and were discharged to inpatient rehab in stable condition. On the day of discharge no new medical complaints voiced. Physical Exam Narrative General: Alert, oriented, no apparent distress HEENT: Atraumatic, normocephalic Eyes: extraocular movements grossly intact Neck: Supple Respiratory: normal respiratory effort Cardiovascular: no edema appreciated GI: nondistended Extremities: Moving all extremities Neuro: No overt focal neurological deficits Psych: Cooperative Medical Records Data Homelessness:: Unsheltered Weight / BMI Weight Weight: 147.009 kg Body Mass Index (BMI) 42.7 ABG / Lab / Microbiology Data 03/26/24 13:15 03/26/24 13:15 Laboratory: Laboratory Results - last 24 hr 03/28/24 11:28: POC Glucose 200 H 03/28/24 16:34: POC Glucose 198 H 03/28/24 22:08: POC Glucose 403 H 03/29/24 06:22: POC Glucose 262 H D/C Instructions Discharge Diet: - (DASH diet, calorie controlled) DC O2, CPAP, BIPAP Needs Home O2 Discharge instructions: No Meaningful Use Info Meaningful Use Meaningful Use Diagnoses (Choose all that apply): None applicable Ischemic Stroke Statin Dosing Therapy Reference: STATIN DOSE THERAPY REFERENCE: * Patients > 75 years receive moderate or high dose statin therapy. * Patients 75 years or YOUNGER should receive HIGH intensity statin dose unless contraindicated. You will be required to document reason for non-treatment if statin daily dose does not meet guidelines. HIGH DOSE STATIN THERAPY DAILY Atorvastatin > than or = to 40 mg Rosuvastatin > than or = to 20 mg Amlodipine + Atorvastatin > than or = to 2.5/40 mg Ezetimibe + Simvastatin 10/80 mg Simvastatin 80mg Discharge Plan Admission Admit Date/Time: 03/26/24 13:57 Primary Reason for Your Visit: Alcohol detox Attending Provider: Wandy Pittman Primary Care Provider: YAMILETH CID Consulting Providers: Kristine Alexander Instructions Patient Instructions: Addiction: Getting Help, Addiction Recovery Counseling, Addiction Recovery Relapse Discharge Orders/Prescriptions Prescriptions: Continued Jardiance 25 mg tablet 25 mg PO DAILY gabapentin 300 mg capsule 300 mg PO TID carvedilol 25 mg tablet 12.5 mg PO BID cetirizine 10 mg tablet 10 mg PO DAILY atorvastatin 10 mg tablet 10 mg PO DAILY meloxicam 15 mg tablet 15 mg PO DAILY glipizide 2.5 mg tablet extended release 24hr 2.5 mg PO DAILY metformin 1,000 mg tablet 1,000 mg PO BID lisinopril-hydrochlorothiazide 10-12.5 mg tablet 1 tab PO DAILY albuterol sulfate 90 mcg/actuation HFA aerosol inhaler 1 puff inhalation Q4H PRN PRN (Reason: wheezing) fluoxetine 60 mg tablet 60 mg PO DAILY Eliquis 5 mg tablet 5 mg PO BID Referrals / Follow Up: YAMILETH CID CRNP [Primary Care Provider] - Within 2 Weeks Disposition Disposition (needs filled in before D/C Order can be placed): DC/Tx to Another Type of HCF Charges/Coding Visit Charges Inpatient E M: 56398 Disch Hosp (more content not included)... [facility] 11-13-2023 Note [facility] Medical Records Department [address] [place] [address] Discharge Summary 11/13/23 1301 MR#: [id number] Acct: [id number] Name: DAYNE MEYER Rep #: [id number] : 1975 48 From: Ronnie Witt DO PCP: KEVIN HAIRSTON Status:DIS IN Location: [facility] [id number] Providers Date of Admission: 11/10/23 Date of Discharge: 11/13/23 Primary Care Physician: KEVIN HAIRSTON Reason For Visit: ETOH DETOX Diagnosis Discharge Diagnosis (1) Desire for detoxification: Status: Acute Plan 1. Acute alcohol withdrawal-patient does not appear symptomatic at this time, he is on as needed Ativan, again the patient plans to go into an inpatient detox program on discharge from the hospital. #2 essential hypertension-patient will remain on his present medications and they will be adjusted as needed #3 paroxysmal atrial fibrillation-patient is currently in sinus rhythm at this time, he is on rate limiting medication and Eliquis. #4 type 2 diabetes-fingerstick blood sugars were ordered and sliding scale insulin to scale will be given #5 morbid obesity-complicates care, management, recovery, and prognosis #6 chronic anxiety-patient is on Prozac Total clinical time spent by myself addressing the patient's medical issues, reviewing all of his data, and collaborating with patient's care team: 35 minutes Medications at Discharge Home Medications albuterol sulfate 90 mcg/actuation aerosol inhaler 1 puff inhalation Q4H PRN PRN wheezing 11/10/23 apixaban 5 mg tablet (Eliquis) 5 mg PO BID 11/10/23 atorvastatin 10 mg tablet 10 mg PO DAILY 11/10/23 carvedilol 25 mg tablet 12.5 mg PO BID 11/10/23 cetirizine 10 mg tablet 10 mg PO DAILY 11/10/23 fluoxetine 60 mg tablet 60 mg PO DAILY 11/10/23 glipizide 2.5 mg tablet, extended release 24 hr 2.5 mg PO DAILY 11/10/23 lisinopril 10 mg-hydrochlorothiazide 12.5 mg tablet 1 tab PO DAILY 11/10/23 meloxicam 15 mg tablet 15 mg PO DAILY 11/10/23 metformin 1,000 mg tablet 1,000 mg PO BID 11/10/23 Hospital Course Operations None Procedures None Summary of Care Provided Minutes Spent on Discharge: 30 Hospital Course: This 48-year-old white male was seen in the emergency room at [facility] requesting services for alcohol detox. Patient's ethyl alcohol level was 183 and his tox screen was negative. Patient was admitted to [place] [address] using the alcohol detox order set, he was seen in consultation by addiction child protective services social worker and arrangements were made for the patient to go into an inpatient detox program at the time of discharge from the hospital. Patient had no evidence of DTs during his hospitalization and had very little evidence of alcohol withdrawal. On 11/13/2023, patient was seen and examined: On examination he appeared in good health and spirits. Vital signs as documented. Skin warm and dry and without overt rashes. Neck without JVD, neck was supple, trachea midline, thyroid was normal. Lungs clear bilaterally, normal air movement was noted. Heart exam notable for regular rhythm, normal sounds and absence of murmurs, rubs or gallops. Abdomen unremarkable and without evidence of organomegaly, masses, or abdominal aortic enlargement. Bowel sounds are present, abdomen is not distended. Extremities nonedematous, no cyanosis was noted, no clubbing was noted. Neuro: Cranial nerves II through XII are grossly intact, no focal motor deficits were noted, sensation to light touch and pinprick intact, motor exam 5/5 throughout. Psych: Patient is alert and oriented x3, he does not appear anxious or depressed, he does not appear agitated. Patient appears stable for discharge to an outpatient detox program on 11/13/2023. Medical Records Data Homelessness:: Sheltered Weight / BMI Weight Weight: 141.974 kg Body Mass Index (BMI) 41.3 ABG / Lab / Microbiology Data 11/11/23 07:22 11/11/23 07:22 Laboratory: Laboratory Results - last 24 hr 11/12/23 16:28: POC Glucose 177 H 11/12/23 21:43: POC Glucose 191 H 11/13/23 06:06: POC Glucose 146 H 11/13/23 11:26: POC Glucose 125 H D/C Instructions Discharge Diet: 1800 Calorie Control Diet Weight Bearing Status: Full weight bearing Meaningful Use Info Meaningful Use Meaningful Use Diagnoses (Choose all that apply): None applicable Ischemic Stroke Statin Dosing Therapy Reference: STATIN DOSE THERAPY REFERENCE: * Patients > 75 years receive moderate or high dose statin therapy. * Patients 75 years or YOUNGER should receive HIGH intensity statin dose unless contraindicated. You will be required to document reason for non-treatment if statin daily dose does not meet guidelines. HIGH DOSE STATIN THERAPY DAILY Atorvastatin > than or = to 40 mg Rosuvastatin > than or = to 20 mg Amlodipine + Atorvastatin > than or = to 2.5/40 mg (more content not included)... [facility] 10-11-2022 Hospital Discharge instructions Patient Education 10/11/2022 12:13:18 Atrial Flutter Atrial Flutter Atrial flutter means that your heart is beating very fast. It is caused by a problem in the electrical pathways of the heart. It can be a sign of heart disease or other health problems that affect your heart. Palpitations are the most common symptom of atrial flutter. This is the feeling that your heart is fluttering or beating fast or hard. When your heart beats too fast, it doesn t pump blood very well. This can cause other symptoms, including: Anxiety Fatigue Shortness of breath Chest pain Dizziness Fainting If this is the first time you ve had atrial flutter, and you don t have heart or lung disease, it may never happen again. But in most cases, atrial flutter comes and goes. It can last from a few hours to a couple of days. Sometimes the atrial flutter doesn t ever go away. This is chronic atrial flutter. Atrial flutter may be caused by heart disease. It may also be caused by other conditions that affect the heart: Coronary artery disease (arteriosclerosis) High blood pressure Disease of the heart valves Enlarged heart Atrial flutter can occur without heart disease. This may be because of: Overactive thyroid (hyperthyroid) Chronic lung disease (COPD, emphysema, or bronchitis) Alcohol use Drugs or medicines that stimulate the heart. These include cocaine, amphetamines, diet pills, some decongestant cold medicines, caffeine, and nicotine. Infection Treating or removing these causes will make it more likely that treatment for atrial flutter will work. It will also make it less likely that atrial flutter will come back. Atrial flutter can happen along with another abnormal rhythm called atrial fibrillation. The risk for stroke is higher with these conditions. Getting treatment can reduce your risk. Home care Follow these guidelines when caring for yourself at home: Go back to your usual activities as soon as you feel back to normal. If you smoke, stop smoking. Talk with your healthcare provider or call a local stop-smoking program for help. Don t take drugs or medicines that stimulate your heart. These include cocaine, amphetamines, diet pills, some decongestant cold medicines, caffeine, and nicotine. Your provider may have prescribed medicine to stop atrial fibrillation from coming back. Take this medicine exactly as directed. Some medicines must be taken every day to work as they should. Your provider may also have prescribed warfarin to lower your risk for stroke. Have your blood tested regularly as advised by your healthcare provider. This will help make sure the dose is right for you. Follow-up care Follow up with your healthcare provider, or as advised. When should I call my healthcare provider? Call your healthcare provider right away if any of these occur: Shortness of breath gets worse Swelling in either leg Unexpected weight gain Chest pain or pressure Near fainting or fainting You feel like your heart is fluttering, or beating fast or hard Fever of 100.4 F (38 C) or higher, or as directed by your healthcare provider Cough with dark-colored or bloody mucus Also call your provider right away if you have signs of stroke: Weakness or numbness of an arm or leg or one side of the face Difficulty speaking or seeing Extreme drowsiness, confusion, dizziness, or fainting [phone] [employer]. [address] [place] [address], [place] [address]. All rights reserved. This information is not intended as a substitute for professional medical care. Always follow your healthcare professional's instructions. Follow Up Care 10/11/2022 11:21:12 With:YAMILETH CID Address: [address] [place] [address]- [phone] When:2-4 days With:MARCIA PANDEY Address: [address] [place] [address] [phone] When:2-4 days [facility] 10-11-2022 Emergency department Discharge summary Discharge Instructions Thank you for allowing [facility] to assist you with your healthcare needs. The following is important discharge information regarding your hospital visit. Diagnosis from Today's Visit Abnormal diagnostic test What to Do Next Instructions from Your Care Team Please increase your carvedilol to 25 mg twice a day. Take the blood thinner as well. Follow-up closely with cardiology and or your primary team. Please return to the ER if develop any worsening symptoms such as chest pain, shortness of breath, or any other concerning symptoms. No qualifying data available. Post Acute Orders No qualifying data available. You Need to Schedule the Following Appointments Follow Up with YAMILETH CID When Within 2-4 days Where: [address] [place] [phone] Follow Up with MARCIA PANDEY When Within 2-4 days Where: [address] [place] [phone] Allergies NKA Medications Please ask your primary doctor or pharmacist before taking any other medication not listed, including over the counter drugs, herbal medications, vitamins and or supplements as they may interact with your home medications. What How Much When Why Instructions Last Dose New apixaban (Eliquis 5 mg oral tablet) 1 tab(s) by mouth Two (2) times a day Duration: 30 Days Printed Prescription Changed carvedilol (carvedilol 12.5 mg oral tablet) 1 tab(s) by mouth Two (2) times a day Duration: 90 Days Changed carvedilol (carvedilol 25 mg oral tablet) 1 tab(s) by mouth Two (2) times a day Duration: 30 Days Printed Prescription Unchanged buPROPion (BuPROPion (Eqv-Wellbutrin SR) 150 mg/ 12 hours oral tablet, extended release) 1 tab(s) by mouth Two (2) times a day Duration: 90 Days Unchanged empagliflozin (Jardiance 25 mg oral tablet) 1 tab(s) by mouth Once a day (in the morning) Type 2 diabetes mellitus with hyperglycemia Duration: 30 Days Unchanged FLUoxetine (PROzac 20 mg oral capsule) 1 cap by mouth Once a day Anxiety Duration: 30 Days Unchanged hydrochlorothiazide-lisinopril (hydrochlorothiazide-lisinopril 12.5 mg-10 mg oral tablet) 1 tab(s) by mouth Once a day Duration: 90 Days Unchanged hydrOXYzine (hydrOXYzine hydrochloride 25 mg oral tablet) 1 tab(s) by mouth Four (4) times a day as needed for as needed for anxiety Anxiety Unchanged meloxicam (meloxicam 15 mg oral tablet) 1 tab(s) by mouth Once a day Duration: 90 Days Unchanged metFORMIN (metFORMIN 1000 mg oral tablet (IR)) 1 tab(s) by mouth Two (2) times a day Duration: 90 Days Please take this list to your next doctor s visit. Bring all medications you take, including over the counter medications, herbals and other supplements with you to your doctor s visit. Patients and families are reminded to discard old lists and to update any records with all medication providers or retail pharmacies. Education Materials Atrial Flutter Atrial flutter means that your heart is beating very fast. It is caused by a problem in the electrical pathways of the heart. It can be a sign of heart disease or other health problems that affect your heart. Palpitations are the most common symptom of atrial flutter. This is the feeling that your heart is fluttering or beating fast or hard. When your heart beats too fast, it doesn t pump blood very well. This can cause other symptoms, including: Anxiety Fatigue Shortness of breath Chest pain Dizziness Fainting If this is the first time you ve had atrial flutter, and you don t have heart or lung disease, it may never happen again. But in most cases, atrial flutter comes and goes. It can last from a few hours to a couple of days. Sometimes the atrial flutter doesn t ever go away. This is chronic atrial flutter. Atrial flutter may be caused by heart disease. It may also be caused by other conditions that affect the heart: Coronary artery disease (arteriosclerosis) High blood pressure Disease of the heart valves Enlarged heart Atrial flutter can occur without heart disease. This may be because of: Overactive thyroid (hyperthyroid) Chronic lung disease (COPD, emphysema, or bronchitis) Alcohol use Drugs or medicines that stimulate the heart. These include cocaine, amphetamines, diet pills, some decongestant cold medicines, caffeine, and nicotine. Infection Treating or removing these causes will make it more likely that treatment for atrial flutter will work. It will also make it less likely that atrial flutter will come back. Atrial flutter can happen along with another abnormal rhythm called atrial fibrillation. The risk for stroke is higher with these conditions. Getting treatment can reduce your risk. Home care Follow these guidelines when caring for yourself at home: Go back to your usual activities as soon as you feel back to normal. If you smoke, stop smoking. Talk with your healthcare provider or call a local stop-smoking program for help. Don t take drugs or medicines that stimulate your heart. These include cocaine, amphetamines, diet pills, some decongestant cold medicines, caffeine, and nicotine. Your provider may have prescribed medicine to stop atrial fibrillation from coming back. Take this medicine exactly as directed. Some medicines must be taken every day to work as they should. Your provider may also have prescribed warfarin to lower your risk for stroke. Have your blood tested regularly as advised by your healthcare provider. This will help make sure the dose is right for you. Follow-up care Follow up with your healthcare provider, or as advised. When should I call my healthcare provider? Call your healthcare provider right away if any of these occur: Shortness of breath gets worse Swelling in either leg Unexpected weight gain Chest pain or pressure Near fainting or fainting You feel like your heart is fluttering, or beating fast or hard Fever of 100.4 F (38 C) or higher, or as directed by your healthcare provider Cough with dark-colored or bloody mucus Also call your provider right away if you have signs of stroke: Weakness or numbness of an arm or leg or one side of the face Difficulty speaking or seeing Extreme drowsiness, confusion, dizziness, or fainting [phone] [employer]. [address] [place] [address], [place] [address]. All rights reserved. This information is not intended as a substitute for professional medical care. Always follow your healthcare professional's instructions. Additional Information VACCINATE! IT SAVES LIVES! Members of the community who have not yet received the COVID-19 vaccine and would like to receive it can visit one of [facility] vaccine clinics. There are many vaccine clinic locations within the [facility]. For locations and available times, please visit [email or web address] [email or web address] It is important to note that some COVID mobile vaccine clinics are held outdoors and may be canceled in rainy or stormy conditions. To learn more about pediatric vaccinations (ages 5-11), we invite you to visit the [facility] webpage. https://www.[employer].org/pa ges/7569-Wxsgw-Dtwbymdcahk-Freque knbd-Kgqyk-Qiiekvaoi.html To learn more about the COVID-19 vaccine, we invite you to visit the CDC website for a list of frequently asked questions. https://www.cdc.gov/coronavirus/2 019-ncov/vaccines/faq.html [facility] Patient Portal Access Instructions: Stay connected with your healthcare team and access your personal medical information anytime with the [facility] Patient Portal. If you would like a full copy of your medical records please contact the [facility] Medical Records Department Friday through Friday between 8a.m. and 4:30p.m. Please follow the directions below to access the portal: 1.Access the email account you provided upon registration to the hospital.2.Look for an invitation email from [facility].3.Open the email and access the invitation link: Accept Invitation to [facility]4.Fill in the required boyle to create your account. Sign into [email or web address] with your username and password that you created in the above steps to stay up to date. You can then view a summary of results, a summary of your visits, and the ability to download your summaries to your computer or send the information securely to a physician. Remember that your healthcare information is confidential, so carefully consider who you will allow to register on the [facility] Patient Portal for access to your information. You can also access the [facility] Patient Portal on the [employer] hubert. Simply click on Health Records under Health Data and then click on the [employer] logo. HOW TO SAFELY DISPOSE OF PRESCRIPTION MEDICATIONS Please use one of the following methods to safely dispose of your unused medications. 1.Use a drug disposal kit: the drug disposal pouch allows you to safely discard your old and unused drugs. Ask your nurse to give you one when you are discharged.2.Visit a local take-back location: Many local pharmacies and police departments have programs that collect old and unwanted prescription drugs. Call your local pharmacy or go to http://EVRGR.[employer]GO Design/4X9Ea5i to find one close to you.3.Make use of household items: Use cat litter or old coffee grounds to dispose medications if other options are not available. Mix your drugs with these household products, seal them in an airtight container and throw it into the garbage. Call [facility]: [phone] to be sure your drugs can be disposed of in this way. Some medicines may require a different approach.4.Never flush your medications down the toilet. IF YOU HAVE BEEN PRESCRIBED AN OPIOIDS FOR PAIN If you have been prescribed an opioid (such as hydrocodone, oxycodone or morphine), it is critical to understand the possible side effects and risks of opioid pain medications. Even when taken as directed, opioids can have several side effects including: Tolerance, meaning you might need to take more of a medication for the same pain relief. Nausea, vomiting and/or constipation. Sleepiness, dizziness, dry mouth, confusion, depression or itching. Physical dependence, meaning you have withdrawal symptoms when a medication is stopped ? this can develop within a few days. KNOW YOUR RESPONSIBILITIES It is important to know exactly how much and how often to take the opioid pain medications you are prescribed. Never take opioids in higher amounts or more often than prescribed. Do not combine opioids with alcohol or other drugs that cause drowsiness, such as benzodiazepines, also known as benzos, including diazepam and alprazolam, muscle relaxants or sleep aids. Never sell or share prescription opioids. This is illegal. Store opioids in a secure place and out of reach of others (including children, family, friends and visitors). The last page(s) of this document has been signed and retained as a CHART COPY Signatures Patient Education Materials Atrial Flutter Medication Leaflets My discharge plan and instructions have been reviewed and explained to me and I,CA MEYERONY Rodo understand my current condition and have read and understand these discharge instructions. I have received a written copy of the plan/instructions. If I have questions, I am aware that I should contact my doctor. 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 There is no focal consolidation, pleural effusion, or pneumothorax. No acute osseous abnormality. IMPRESSION: No acute radiographic findings. Interpreted by: Jesse Chicas MD Preliminary Report By: Jesse Chicas MD Electronically signed By Jesse Chicas MD Dictated Date: 10/11/2022 12:02:31 PM Prelim Date: 10/11/2022 12:03:50 PM Sign Date: 10/11/2022 12:03:50 PM Ordering Provider: NISHI MIDDLETON [facility] 10-11-2022 Note ATRIAL FLUTTER TACHY CARDIA Consider right atrial enlargement Inferior infarct, old Borderline ST elevation, anterolateral leads Baseline wander in lead(s) V2,V4,V5 Electronic Signature: NISHI MIDDLETON MD 10/11/2022 11:33:52 [facility] Evaluation + Plan note Future Appointments Appointment Date:10/16/2022 03:30:00 PM Scheduled Provider:TODD ALBERTS Location:[facility] Appointment Type:PC OV Follow Up Future Scheduled TestsBasic Metabolic Panel 7/3/23A1C Hemoglobin 7/3/23Lipid Profile 09/16/22 [facility] Evaluation + Plan note Future Appointments Appointment Date:01/28/2023 11:30:00 AM Scheduled Provider:YAMILETH CID Location:[facility] Appointment Type:PC OV Future Scheduled TestsBasic Metabolic Panel 7/3/23Prostate Specific Antigen 8/29/23A1C Hemoglobin 7/3/23Lipid Profile 09/16/22 [facility] Evaluation + Plan note Future Appointments Appointment Date:03/28/2023 01:45:00 PM Scheduled Provider: Location:[facility] Appointment Type:PC Nurse BP Check Future Scheduled TestsBasic Metabolic Panel 7//Prostate Specific Antigen 8/29/23A1C Hemoglobin 7/3/23Lipid Profile 09/16/22 [facility] Evaluation + Plan note Future Appointments Appointment Date:08/05/2023 11:00:00 AM Scheduled Provider:YAMILETH CID Location:[facility] Appointment Type:PC OV Future Scheduled TestsBasic Metabolic Panel 7//23Prostate Specific Antigen 8/29/23A1C Hemoglobin 7/3/23Lipid Profile //Albumin/Creatinine Ratio, Random Urine 07/29/23 [facility] Evaluation note Diagnosis Radiculopathy, lumbar region Thoracic or lumbosacral neuritis or radiculitis, unspecified Lumbar radiculopathy, chronic Thoracic or lumbosacral neuritis or radiculitis, unspecified documented in this encounter [facility] Work Phone: Evaluation note* Diagnosis Open wound of left great toe, subsequent encounter- Primary documented in this encounter [facility] note* Diagnosis Pain, dental- Primary documented in this encounter [facility] note* Diagnosis Dental abscess- Primary Periapical abscess without sinus [facility] Narrative No data available for this section [facility] Hospital Discharge instructions No data available for this section [facility] Hospital Discharge instructions* Attachments The following attachments cannot be sent through Care Everywhere. * Tooth: Abscessed (Kittitian) [facility] No data available for this section [facility] Assessments Diagnosis Smoker Tobacco use disorder Left groin pain Abdominal pain, left lower quadrant Chronic bilateral low back pain with bilateral sciatica Summary Purpose Family History No Family History Records FoundNo Family History Records FoundNo Family History Records Found No data available for this section No data available for this section No data available for this section No data available for this section No Family History Records FoundNo Family History Records FoundNo Family History Records FoundNo Family History Records FoundNo Family History Records Found Advance Directives No Advanced Directives Records FoundNo Advanced Directives Records FoundNo Advanced Directives Records FoundNo Advanced Directives Records FoundNo Advanced Directives Records FoundNo Advanced Directives Records FoundNo Advanced Directives Records FoundNo Advanced Directives Records Found Additional Source Comments (unrecognized sect ion and content) No Status Records FoundNo Status Records FoundNo Status Records FoundNo Status Records FoundNo Status Records FoundNo Status Records FoundNo Status Records FoundNo Status Records Found INFORMATION SOURCE (unrecogn ized section and content) DATE CREATED AUTHOR 06/03/2020 [facility] [employer] [facility] DATE CREATED AUTHOR AUTHOR'S ORGANIZ ATION 07/13/2021 [facility] DATE CREATED AUTHOR AUTHOR'S ORGANIZ ATION 03/08/2022 [facility] DATE CREATED AUTHOR AUTHOR'S ORGANIZ ATION 11/14/2023 [facility] ([place] DATE CREATED AUTHOR AUTHOR'S ORGANIZ ATION 04/27/2024 [facility] DATE CREATED AUTHOR AUTHOR'S ORGANIZ ATION 04/27/2024 [facility] DATE CREATED AUTHOR AUTHOR'S ORGANIZ ATION 05/30/2024 [facility] DATE CREATED AUTHOR AUTHOR'S ORGANIZ ATION 09/12/2024 [facility] y [facility] Care Teams (unrecognized sec tion and content) Maintenance Clerk Relationship Specialty Start Date End Date JeannieXavier lacey, [address] [place] [address] PCP - General Family Medicine 03/29/20 Maintenance Clerk Relationship Specialty Start Date End Date Yamileth Cid CNP Nurse Practitioner Primary Care 08/12/23 Maintenance Clerk Relationship Specialty Start Date End Date Physician, No Pcp PCP - General 05/27/24 Maintenance Clerk Relationship Specialty Start Date End Date Physician, No Pcp PCP - General 05/27/24 Reason for Visit (unrecogniz ed section and content) Reason Comments Follow-up Wound Check-Left Gre at Toe-R/S from NS on 04/05/24 Reason Comments Dental Pain Patient complains of right, front dental pain that began yesterday. Patient states he believes and might have an abscess tooth. Reason Comments Eye Pain Facial Swelling Dental Pain Pt has increasing fa cial pain that has been going on for the past 2 days Ordered Prescriptions (unrec ognized section and content) Prescription Sig Dispense Quantity Refills Last Filled Start Date End Date diphenhydramine-al qrxfwf-alpbvymvt-u imethicone-lidocai ne (MAGIC MOUTHWASH) [phone] mg/30 mL liquid suspension Take 10 mL by mouth 4 (four) times a day if needed (dental pain) for up to 7 days. 119 mL 05/27/2024 06/03/2024 chlorhexidine (PERIDEX) 0.12 % solution Swish and spit 15 mL 2 (two) times a day for 10 days. 300 mL 05/27/2024 06/06/2024 amoxicillin-clavul anate (AUGMENTIN) 875-125 mg per tablet Take 1 tablet by mouth 2 (two) times a day for 7 days. 14 each 05/27/2024 06/03/2024 Prescription Sig Dispense Quantity Refills Last Filled Start Date End Date amoxicillin-clavul anate (AUGMENTIN) 875-125 mg per tablet Take 1 tablet by mouth 2 (two) times a day for 10 days. 20 tablet 05/28/2024 sulfamethoxazole-t rimethoprim (BACTRIM DS,SEPTRA DS) 800-160 mg per tablet Take 2 tablets by mouth 2 (two) times a day for 10 days. 40 tablet 05/28/2024 5 HYDROcodone-acetam inophen (NORCO) 5-325 mg per tablet Take 1 tablet by mouth 4 (four) times a day if needed for severe pain for up to 3 days. Max Daily Amount: 4 tablets 12 tablet 05/28/2024 5 Scheduled Active and Recently Administ ered Medications (unrecognized section and content) Medication Order 05/26/2024 05/27/2024 05/28/2024 amoxicillin-clavulanate (AUGMENTIN) 875-125 mg per tablet 1 tablet (COMPLETED) 1 tablet, oral, Once, On Fri05/28/24 at 1033, For 1 dose, Indication: Head/Ear/Eye/Nose/Throat Coverage 1058 (Given - Provid er: Sanjay Alyssa, [employer]) HYDROcodone-acetaminophen (NORCO) 5-325 mg per tablet 1 tablet (COMPLETED) 1 tablet, oral, Once, On Fri05/28/24 at 1033, For 1 dose 1057 (Given - Provid er: Sanjay Alyssa, [employer]NER OPERATOR) sulfamethoxazole-trimethoprim (BACTRIM DS,SEPTRA DS) 800-160 mg per tablet 1 tablet (COMPLETED) 1 tablet, oral, Once, On Fri05/28/24 at 1033, For 1 dose, Indication: Head/Ear/Eye/Nose/Throat Coverage 1058 (Given - Provid er: Sanjay Alyssa, [employer] OWNER OPERATOR) FOR RECORDS PERTAINING TO PATIENTS WHO ARE OR HAVE BEEN ENROLLED IN A CHEMICAL DEPENDENCY/SUBSTANCEABUSE PROGRAM, SOME INFORMATION MAY BE OMITTED. This clinical summary was aggregated from multiple sources. Caution should be exercised in using it in the provision of clinical care. This summary normalizes information from multiple sources, and as a consequence, information in this document may materially change the coding, format and clinical context of patient data. In addition, data may be omitted in some cases. CLINICAL DECISIONS SHOULD BE BASED ON THE PRIMARY CLINICAL RECORDS. [facility]. provides no warranty or guarantee of the accuracy or completeness of information in this document.
--- OUTSIDE RECORDS SUMMARY | 2024-09-15 22:52 | XMS RPT_ITS | CCD ---
Author Organization [facility] Inform ion Partnership [employer] [facility] Care Team Providers Care [place] Dining Room Attendant Name Role Phone Xavier Simmons Primary Care Provider PHYSICIAN, NONE Primary Care Physician Unavailab le MAST PIN OR CLIP FASTENER-REPAIRER AUTO CLOCKS, YAMILETH Primary Care Physician GURWINDER FARRIS MD Attending Unavailable MAST PIN OR CLIP FASTENER-REPAIRER AUTO CLOCKS, YAMILETH Primary Care Unavailabl e MAST PIN OR CLIP FASTENER-REPAIRER AUTO CLOCKS, YAMILETH Attending Unavailabl e MAST PIN OR CLIP FASTENER-REPAIRER AUTO CLOCKS, YAMILETH Primary Care Unavailabl e MAST PIN OR CLIP FASTENER-REPAIRER AUTO CLOCKS, YAMILETH Attending Unavailabl e MAST PIN OR CLIP FASTENER-REPAIRER AUTO CLOCKS, YAMILETH Primary Care Unavailabl e MAST PIN OR CLIP FASTENER-REPAIRER AUTO CLOCKS, YAMILETH Attending Unavailabl e MAST PIN OR CLIP FASTENER-REPAIRER AUTO CLOCKS, YAMILETH Primary Care Unavailabl e MAST PIN OR CLIP FASTENER-REPAIRER AUTO CLOCKS, YAMILETH Attending Unavailabl e MAST PIN OR CLIP FASTENER-REPAIRER AUTO CLOCKS, YAMILETH Primary Care Unavailabl e MAST PIN OR CLIP FASTENER-REPAIRER AUT[employer] CLOCKS, YAMILETH Attending Unavailabl e MAST PIN OR CLIP FASTENER-REPAIRER AUTO CLOCKS, YAMILETH Primary Care Unavailabl e Unavailable Primary Care Provider Unavailabl e RICHARD CURRIE Primary Care Unavailable MARQUSE DESAI Attending Unavailable EBBINGBRAD Attending Unavailabl e [...] Facility (1 source) traZODone Drug Allergy 08-03-2024 [facility] Repository Medications Current Medications Medication Drug [...] wheezing, # 18 gram(s), 2 Refill(s), [facility]acy: [facility] #[id number], 180, cm, 07/29/23 10:40:00 EDT, Height, kg, 07/29/23 10:40:00 EDT, Dosing Weight Start Date: 07/29/23 Status: Ordered Start: 11-12-2022 take 1 puff(s) by in halation every four hours as needed for wheezing albuterol MDI (90 mcg/inh) CFC free inhalation aerosol 1 puff(s), Inhalation, q4h, PRN as needed for wheezing, # 18 gram(s), 2 Refill(s), Pharmacy: [email or web address] #[id number], 178, cm, 11/12/22 11:25:00 EDT, Height, kg, [...] BID, # 60 tab(s), 11 Refill(s), Pharmacy: [email or web address] #[id number], 180, cm, 07/29/23 10:40:00 EDT, Height, 139.5, [...] 30 tab(s), 11 Refill(s), [facility]: [facility][id number], 180, cm, 03/21/23 10:52:00 EST, Height, kg, [...] BID, # 60 tab(s), 11 Refill(s), Pharmacy: [email or web address] #[id number], 178, cm, 11/12/22 11:25:00 EDT, Height, kg, 11/12/22 11:25:00 EDT, Dosing Weight Start Date: 11/12/22 Stop Date: 11/07/23 Status: Ordered Start: 09-16-2022 End: 03-15-2023 BuPROPion (Eqv-Wellbutrin SR ) 150 mg/12 hours oral tablet, extended release Dose : 150 mg = 1 tab(s), Oral, BID, # 180 tab(s), 1 Refill(s), Pharmacy: [email or web address] #[id number], 175, cm, 09/16/22 10:31:00 EDT, Height Start Date: 09/16/22 Stop Date: 03/15/23 Status: Ordered carvedilol 25 mg oral tablet (7 sources) alpha-Adrenergic Magui, beta-Adrenergic Magui Start: 11-12-2022 End: 11-07-2023 carvedilol 25 mg oral tablet Dose : 12.5 mg = 0.5 tab(s), Oral, BID, # 30 tab(s), 11 Refill(s), [facility]: [facility] #[id number], 178, cm, 11/12/22 11:25:00 EDT, Height, kg, [...] 180 tab(s), 1 Refill(s), [facility]: [facility] #[id number], 175, cm, 09/16/22 10:31:00 EDT, Height Start [...] 30 tab(s), 11 Refill(s), [facility]: [facility] #[id number], 178, cm, 11/12/22 11:25:00 EDT, Height, kg, 11/12/22 11:25:00 EDT, Dosing Weight Start Date: 11/12/22 Status: Ordered chlorhexidine gluconate 1.2 mg/ml mouthwash (2 sources) Start: 05-27-2024 End: 06-06-2024 chlorhexidine (PERIDEX) 0.12 % solution Swish and spit 15 mL 2 (two) times a day for 10 days. 300 mL 05/27/2024 06/06/2024 Active Continuous Blood Gluc Medical Assistant Instructor (FREESTYLE BETY 2 READER) ANJELICA (1 source) Start: 06-27-2021 Continuous Blo od Gluc Medical Assistant Instructor (FREESTYLE BETY 2 READER) ANJELICA Test q day 1 each 1 06/27/2021 Active Continuous Blood Gluc Sensor (FREESTYLE BETY 2 SENSOR) MISC (1 source) Start: 06-27-2021 Continuous Blo od Gluc Sensor (FREESTYLE BETY 2 SENSOR) MISC Test q day 1 each 11 06/27/2021 Active diphenhydramine-alumin ju-unfowlnll-lsiwelkjg ne-lidocaine (MAGIC MOUTHWASH) 87-172-192-40-200 mg/30 mL liquid suspension (2 sources) Start: 05-27-2024 End: 06-03-2024 diphenhydramine-alumi zej-tvxqmzywg-kwrnviy cone-lidocaine (MAGIC MOUTHWASH) 18-916-200-40-200 mg/30 mL liquid suspension Take 10 mL [...] qAM, # 30 tab(s), 11 Refill(s), Pharmacy: [facility] #[id number], Type 2 diabetes mellitus with hyperglycemia, 180, cm, 07/29/23 10:40:00 EDT, Height, kg, 07/29/23 10:40:00 EDT, Dosing Weight Start Date: 07/29/23 Stop Date: 07/23/24 Status: Ordered FLUoxetine 60 mg oral tablet (5 sources) Serotonin Reuptake Inhibitor Start: 03-21-2023 End: 03-15-2024 FLUoxetine 60 mg oral tablet Dose : 60 mg = 1 tab(s), Oral, qAM, # 30 tab(s), 11 Refill(s), [facility]: [facility] #[id number], 180, cm, 03/21/23 10:52:00 EST, Height, kg, 03/21/23 10:52:00 EST, Dosing Weight Start Date: 03/21/23 Stop Date: 03/15/24 Status: Ordered Start: 11-12-2022 PROzac 40 mg o ral capsule Dose : 40 mg = 1 cap(s), Oral, qDay, # 30 cap(s), 11 Refill(s), [facility]: [facility] #[id number], 178, cm, 11/12/22 11:25:00 EDT, Height, kg, 11/12/22 11:25:00 EDT, Dosing Weight Start Date: 11/12/22 Status: Ordered Start: 09-24-2022 End: 09-19-2023 PROzac 20 mg oral capsule Do se : 20 mg = 1 cap(s), Oral, qDay, # 30 cap(s), 11 Refill(s), [facility]: [facility] #[id number], Anxiety, 178, cm, 09/24/22 9:34:00 EDT, Height [...] 30 tab(s), 11 Refill(s), [facility]: [facility] #[id number], 180, cm, 03/21/23 10:52:00 EST, Height, kg, [...] 30 tab(s), 11 Refill(s), Pharmacy: [facility] #[id number], 180, cm, 07/29/23 10:40:00 EDT, Height, kg, [...] 09/26/23 9:53:00 AM EDT, [facility]acy: [facility] #[id number], Anxiety, 178, cm, 09/24/22 9:34:00 EDT, Height [...] 60 tab(s), 11 Refill(s), [facility]: [facility] #[id number], 178, cm, 11/12/22 11:25:00 EDT, Height, kg, [...] MG tablet 04/02/2024 Active polyethylene glycol 3350 18431 mg powder for oral solution (3 sources) [...] Department Summary on 09-06-2024 Emergency Department Summary [facility] Medical Records Department [address] [place] [id number] Emergency Department Summary 09/06/24 MR#: [id number] Acct: [id number] Name: DAYNE MEYER Rep #: [id number] : 1975 48 From: Brian Felix MD [...] the water, and was walking to the desk monitor when it was noticed that he had bleeding from his bilateral feet. He states he was unsure if he stepped on anything like a piece of plastic or glass. No recent fevers or chills, no nausea or vomiting, no other symptoms. [facility] Medical History Morbid obesity with BMI of [...] out of (more content not included)... Normal [facility] Bedside Glucoseon 08-05-2024 FINGERSTICK GLU 241 mg/dL High 74-106 [facility] Comment on above: Result Comment: RIP MACIEL OF PATIENT CARE PER NURSING PROTOCOL Performed By: #### L 501.080 #### [facility] [address] [place], [address] FINGERSTICK GLU 297 mg/dL High [address] [place] [address] Comment on above: Result Comment: RIP GEMENT OF PATIENT CARE PER NURSING PROTOCOL Performed By: #### L 501.080 #### [facility] [address] [place], [address] FINGERSTICK GLU 308 mg/dL High [address] [place] [address] Comment on above: Result Comment: RIP GEMENT OF PATIENT CARE PER NURSING PROTOCOL Performed By: #### L 501.080 #### [facility] [address] [place], [address] Alcohol, Blood (Medical)-Ser umon 08-04-2024 SERUM ETOH 38.0 mg/dL High <=10.0 [facility] Comment on above: Result Comment: This test is for medical purposes only. The legal definition of intoxication varies according to local law. Performed By: #### L 501.9100 #### [facility] [address] [place], [address] Bedside [facility] 08-04-2024 FINGERSTICK GLU 291 mg/dL High [address] [place] [address] Comment on above: Result Comment: RIP GEMENT OF PATIENT CARE PER NURSING PROTOCOL Performed By: #### L 505.5000, L501.9100, L500.2500, L100.0100 #### [facility] [address] [place], [address] FINGERSTICK GLU 299 mg/dL High [address] [place] [address] Comment on above: Result Comment: RIP GEMENT OF PATIENT CARE PER NURSING PROTOCOL Performed By: #### L 505.5000, L501.9100, L500.2500, L100.0100 #### [facility] [address] [place], [address] FINGERSTICK GLU 298 mg/dL High [address] [place] [address] Comment on above: Result Comment: RIP GEMENT OF PATIENT CARE PER NURSING PROTOCOL Performed By: #### L 501.080 #### [facility] [address] [place], [address] FINGERSTICK GLU 263 mg/dL High 74-106 [facility] Comment on above: Result Comment: RIP GEMENT OF PATIENT CARE PER NURSING PROTOCOL Performed By: #### L 505.5000, L501.9100, L500.2500, L100.0100 #### [facility] [address] [place], [address] CBC W/Diff, Automatedon 05-2 Absolute Lymph 2.83 X10 3/uL Normal 0.83-4.51 [facility] Comment on above: Performed By: #### L 505.5000, L501.9100, L500.2500, L100.0100 #### [facility] [address] [place], [address] Absolute Neut 2.7 X10 3/uL Normal 2.0-7.7 [facility] Comment on above: Performed By: #### L 505.5000, L501.9100, L500.2500, L100.0100 #### [facility] [address] [place], [address] Basophils/100 WBC (Bld) 0.6 % Normal 0-1 [facility] Comment on above: Performed By: #### L 505.5000, L501.9100, L500.2500, L100.0100 #### [facility] [address] [place], [address] Eosinophils/100 WBC (Bld) 3.1 % Normal 0-5 [facility] Comment on above: Performed By: #### L 505.5000, L501.9100, L500.2500, L100.0100 #### [facility] [address] [place], [address] Erythrocyte distribution width (RBC) [Ratio] 14.3 % Normal 11.6-14.6 [facility] Comment on above: Performed By: #### L 505.5000, L501.9100, L500.2500, L100.0100 #### [facility] [address] [place], [address] Hematocrit (Bld) [Volume fraction] 43.9 % Normal 40-54 [facility] Comment on above: Performed By: #### L 505.5000, L501.9100, L500.2500, L100.0100 #### [facility] [address] [place], [address] Hemoglobin (Bld) [Mass/Vol] 15.0 g/dL Normal 13.0-16.5 [facility] Comment on above: Performed By: #### L 505.5000, L501.9100, L500.2500, L100.0100 #### [facility] [address] [place], [address] IG% 0.500 Normal 0.0-0.9 [facility] Comment on above: Result Comment: IG% - Immature Granulocytes (promyelocytes, myelocytes and metamyelocytes) > 1% indicates that a LEFT SHIFT is Present. Performed By: #### L 505.5000, L501.9100, L500.2500, L100.0100 #### [facility] [address] [place], [address] Lymphocytes/100 WBC (Bld) 44.4 % High 19-41 [facility] Comment on above: Performed By: #### L 505.5000, L501.9100, L500.2500, L100.0100 #### [facility] [address] [place], [address] MCH (RBC) [Entitic mass] 31.1 pg Normal 27.0-32.0 [facility] Comment on above: Performed By: #### L 505.5000, L501.9100, L500.2500, L100.0100 #### [facility] [address] [place], [address] MCHC (RBC) [Mass/Vol] 34.2 g/dL Normal 32-36 [facility] Comment on above: Performed By: #### L 505.5000, L501.9100, L500.2500, L100.0100 #### [facility] [address] [place], [address] MCV (RBC) [Entitic vol] 90.9 fL Normal 80-94 [facility] Comment on above: Performed By: #### L 505.5000, L501.9100, L500.2500, L100.0100 #### [facility] [address] [place], [address] Monocytes/100 WBC (Bld) 8.6 % Normal 0-10 [facility] Comment on above: Performed By: #### L 505.5000, L501.9100, L500.2500, L100.0100 #### [facility] [address] [place], [address] Neutrophils/100 WBC (Bld) 42.8 % Low 47-70 [facility] Comment on above: Performed By: #### L 505.5000, L501.9100, L500.2500, L100.0100 #### [facility] [address] [place], [address] Nucleated RBC (Bld) [#/Vol] 0 10*3/uL Normal 0-5 [facility] Comment on above: Performed By: #### L 505.5000, L501.9100, L500.2500, L100.0100 #### [facility] [address] [place], [address] Platelet mean volume (Bld) [Entitic vol] 9.5 fL Normal 6.2-12.0 [facility] Comment on above: Performed By: #### L 505.5000, L501.9100, L500.2500, L100.0100 #### [facility] [address] [place], [address] Platelets (Bld) [#/Vol] 232 10*3/uL Normal 150-450 [facility] Comment on above: Performed By: #### L 505.5000, L501.9100, L500.2500, L100.0100 #### [facility] [address] [place], [address] RBC (Bld) [#/Vol] 4.83 10*6/uL Normal 4.6-6.2 [facility] Comment on above: Performed By: #### L 505.5000, L501.9100, L500.2500, L100.0100 #### [facility] [address] [place], [address] RDW SD 47.0 fl High 35.1-43.9 [facility] Comment on above: Performed By: #### L 505.5000, L501.9100, L500.2500, L100.0100 #### [facility] [address] [place], [address] WBC (Bld) [#/Vol] 6.4 10*3/uL Normal 4.4-11.0 [facility] Comment on above: Performed By: #### L 505.5000, L501.9100, L500.2500, L100.0100 #### [facility] [address] [place], [address] Comprehensive Metabolic Prof [facility] 08-04-2024 Albumin [Mass/Vol] 3.5 g/dL Normal 3.5-5.0 [facility] Comment on above: Performed By: #### L 505.5000, L501.9100, L500.2500, L100.0100 #### [facility] [address] [place], [address] Albumin/Globulin [Mass ratio] 0.9 {ratio} Normal 0.9-2.4 [facility] Comment on above: Performed By: #### L 505.5000, L501.9100, L500.2500, L100.0100 #### [facility] [address] [place], [address] ALK PHOS 104 U/L Normal 40-129 [facility] Comment on above: Performed By: #### L 505.5000, L501.9100, L500.2500, L100.0100 #### [facility] [address] [place], [address] ALT [Catalytic activity/Vol] 40 U/L Normal <=46 [facility] Comment on above: Performed By: #### L 505.5000, L501.9100, L500.2500, L100.0100 #### [facility] [address] [place], [address] AST [Catalytic activity/Vol] 42 U/L High <=37 [facility] Comment on above: Performed By: #### L 505.5000, L501.9100, L500.2500, L100.0100 #### [facility] [address] [place], [address] Bilirubin [Mass/Vol] 0.25 mg/dL Normal 0.00-1.30 [facility] Comment on above: Performed By: #### L 505.5000, L501.9100, L500.2500, L100.0100 #### [facility] [address] [place], [address] BUN/CRE 10.1 RATIO Normal 10-20 [facility] Comment on above: Performed By: #### L 505.5000, L501.9100, L500.2500, L100.0100 #### [facility] [address] [place], [address] Calcium [Mass/Vol] 9.0 mg/dL Normal 7.6-11.0 [facility] Comment on above: Performed By: #### L 505.5000, L501.9100, L500.2500, L100.0100 #### [facility] [address] [place], [address] Chloride [Moles/Vol] 103 mmol/L Normal 98-108 [facility] Comment on above: Performed By: #### L 505.5000, L501.9100, L500.2500, L100.0100 #### [facility] [address] [place], [address] CO2 [Moles/Vol] 18.7 mmol/L Low 21.0-32.0 [facility] Comment on above: Performed By: #### L 505.5000, L501.9100, L500.2500, L100.0100 #### [facility] [address] [place], [address] Creatinine [Mass/Vol] 0.74 mg/dL Normal 0.70-1.20 [facility] Comment on above: Performed By: #### L 505.5000, L501.9100, L500.2500, L100.0100 #### [facility] [address] [place], [address] ECRCL 179.71 ml/min Normal 50-250 [facility] Comment on above: Performed By: #### L 505.5000, L501.9100, L500.2500, L100.0100 #### [facility] [address] [place], [address] GAP 18 High 5-15 [facility] Comment on above: Performed By: #### L 505.5000, L501.9100, L500.2500, L100.0100 #### [facility] [address] [place], [address] GFR/1.73 sq M.predicted among non-blacks MDRD (S/P/Bld) [Vol rate/Area] 111 mL/min/{1.73_m2} Normal >60 [facility] Comment on above: Result Comment: mL/m in/1.73m2 CKD-EPI Creatinine Equation (2020) Performed By: #### L 505.5000, L501.9100, L500.2500, L100.0100 #### [facility] [address] [place], [address] Globulin (S) [Mass/Vol] 3.7 g/dL Normal 2.2-4.2 [facility] Comment on above: Performed By: #### L 505.5000, L501.9100, L500.2500, L100.0100 #### [facility] [address] [place], [address] Glucose [Mass/Vol] 252 mg/dL High 70-99 [facility] Comment on above: Performed By: #### L 505.5000, L501.9100, L500.2500, L100.0100 #### [facility] [address] [place], [address] Potassium [Moles/Vol] 3.6 mmol/L Normal 3.3-5.1 [facility] Comment on above: Performed By: #### L 505.5000, L501.9100, L500.2500, L100.0100 #### [facility] [address] [place], [address] Sodium [Moles/Vol] 139 mmol/L Normal 133-145 [facility] Comment on above: Performed By: #### L 505.5000, L501.9100, L500.2500, L100.0100 #### [facility] [address] [place], [address] T PROT 7.1 g/dL Normal 5.9-8.4 [facility] Comment on above: Performed By: #### L 505.5000, L501.9100, L500.2500, L100.0100 #### [facility] [address] [place], [address] Urea nitrogen [Mass/Vol] 8 mg/dL Normal 4-19 [facility] Comment on above: Performed By: #### L 505.5000, L501.9100, L500.2500, L100.0100 #### [facility] [address] [place], [address] H AND P Exam - [facility] 08-04-2024 H&P Exam - Hospitalist [facility] Medical Records Department [address] [place] [address] H P Exam - Hospitalist 08/04/24 0047 MR#: [id number] Acct: [id number] Name: DAYNE MEYER Rep #: [id number] : 1975 48 From: Jesse Hernandez DO PCP: Care Physician,No Primary Status:ADM IN [place] [facility] [place] [id number] - General General Date of Admission: [...] beer daily pluw whiskey who presents to [facility] ER complaining of wanting help with [...] is expected to extend beyond 2 midnights. [facility] Medical History Allergic rhinitis Asthma Anxiety and [...] constipation. : (more content not included)... Normal [facility] Hemoglobin A1con 08-04-2024 HbA1c (Bld) [Mass fraction] 10.9 % High <=5.6 [facility] Comment on above: Order Comment: NURSE LEBRON SAID IT IS OKAY TO DO WITH MORNING LABWORK Result Comment: Norm al < 5.7 % Prediabetic 5.7 - 6.4 % Diabetic >or= 6.5 % Please note range changes. Performed By: #### L 501.1473, L501.9513 #### [facility] [address] [place], [address] Lipid Profileon 08-04-2024 CHOL:HDL 4.88 Normal [facility] Comment on above: Performed By: #### L 505.5000, L501.9100, L500.2500, L100.0100 #### [facility] [address] [place], [address] Cholesterol [Mass/Vol] 124 mg/dL Normal <=200 [facility] Comment on above: Result Comment: Chol esterol level, Desirable <200 mg/dL Borderline high cholesterol 200-239 mg/dL High cholesterol >=240 mg/dL Recommendations of the NCEP Adult Treatment Panel for the following risk-cutoff thresholds for the [place] population. Performed By: #### L 505.5000, L501.9100, L500.2500, L100.0100 #### [facility] [address] [place] [place], [address] Cholesterol in HDL [Mass/Vol] 25 mg/dL Low [facility] Comment on above: Result Comment: Tosin onal Cholesterol Education Program (NCEP) guidelines: <40 mg/dL: Low HDL-cholesterol (major risk factor for CHD) >= 60 mg/dL: High HDL-cholesterol (negative risk factor for CHD) HDL-cholesterol is affected by a number of factors, e.g. smoking, exercise, hormones, sex and age. Performed By: #### L 505.5000, L501.9100, L500.2500, L100.0100 #### [facility] [address] [place], [address] Cholesterol in LDL [Mass/Vol] 60 mg/dL Normal [facility] Comment on above: Result Comment: Bord aysofx=757-360 mg/dL Higher Enaj=923 mg/dL or greater Performed By: #### L 505.5000, L501.9100, L500.2500, L100.0100 #### [facility] [address] [place], [address] Cholesterol in VLDL [Mass/Vol] 38 mg/dL Normal 5-40 [facility] Comment on above: Performed By: #### L 505.5000, L501.9100, L500.2500, L100.0100 #### [facility] [address] [place], [address] Triglyceride [Mass/Vol] 192 mg/dL Normal [facility] Comment on above: Result Comment: The drugs N-Acetylcysteine and Metamizole may falsely depress this assay. Normal range: <150 mg/dL Borderline High: 150-199 mg/dL High: 200-499 mg/dL Very High: >500 mg/dL Performed By: #### L 505.5000, L501.9100, L500.2500, L100.0100 #### [facility] [address] [place], [address] Magnesiumon 08-04-2024 Magnesium [Mass/Vol] 2.2 mg/dL Normal 1.5-2.2 [facility] Comment on above: Performed By: #### L 501.080 #### [facility] [address] [place], [address] Phosphoruson 08-04-2024 Phosphate [Mass/Vol] 3.8 mg/dL Normal 2.7-4.5 [facility] Comment on above: Performed By: #### L 505.5000, L501.9100, L500.2500, L100.0100 #### [facility] [address] [place], [address] Prothrombin Time w/INRon INR Coag (PPP) [Relative time] 1.0 {INR} Normal [facility] Comment on above: Performed By: #### L 505.5000, L501.9100, L500.2500, L100.0100 #### [facility] [address] [place], [address] PT Coag (PPP) [Time] 13.2 s Normal 11.7-14.9 [facility] Comment on above: Performed By: #### L 505.5000, L501.9100, L500.2500, L100.0100 #### [facility] [address] [place], [address] Thyroid Stim Hormone (TSH)on 08-04-2024 TSH 0.838 uIU/mL Normal 0.300-4.200 [facility] Comment on above: Order Comment: NURSE LEBRON SAID IT IS OKAY TO DO WITH MORNING LABWORK Performed By: #### L 501.9985, L501.9520 #### [facility] [address] [place] [place], [address] Alcohol, Blood (Medical)-Ser umon 08-03-2024 SERUM ETOH 225.0 mg/dL High <=10.0 [facility] Comment on above: Result Comment: This test is for medical purposes only. The legal definition of intoxication varies according to local law. Performed By: #### L 501.080 #### [facility] [address] [place], [address] CBC W/Diff, Automatedon 07-16 0-2024 Absolute Lymph 3.02 X10 3/uL Normal 0.83-4.51 [facility] Comment on above: Performed By: #### L 501.080 #### [facility] [address] [place], [address] Absolute Neut 5.0 X10 3/uL Normal 2.0-7.7 [facility] Comment on above: Performed By: #### L 501.080 #### [facility] [address] [place], [address] Basophils/100 WBC (Bld) 0.7 % Normal 0-1 [facility] Comment on above: Performed By: #### L 501.080 #### [facility] [address] [place], [address] Eosinophils/100 WBC (Bld) 2.1 % Normal 0-5 [facility] Comment on above: Performed By: #### L 501.080 #### [facility] [address] [place], [address] Erythrocyte distribution width (RBC) [Ratio] 14.2 % Normal 11.6-14.6 [facility] Comment on above: Performed By: #### L 501.080 #### [facility] [address] [place], [address] Hematocrit (Bld) [Volume fraction] 47.1 % Normal 40-54 [facility] Comment on above: Performed By: #### L 501.080 #### [facility] [address] [place], [address] Hemoglobin (Bld) [Mass/Vol] 16.4 g/dL Normal 13.0-16.5 [facility] Comment on above: Performed By: #### L 501.080 #### [facility] [address] [place], [address] IG% 0.300 Normal 0.0-0.9 [facility] Comment on above: Result Comment: IG% - Immature Granulocytes (promyelocytes, myelocytes and metamyelocytes) > 1% indicates that a LEFT SHIFT is Present. Performed By: #### L 501.080 #### [facility] [address] [place], [address] Lymphocytes/100 WBC (Bld) 33.4 % Normal 19-41 [facility] Comment on above: Performed By: #### L 501.080 #### [facility] [address] [place], [address] MCH (RBC) [Entitic mass] 31.2 pg Normal 27.0-32.0 [facility] Comment on above: Performed By: #### L 501.080 #### [facility] [address] [place], [address] MCHC (RBC) [Mass/Vol] 34.8 g/dL Normal 32-36 [facility] Comment on above: Performed By: #### L 501.080 #### [facility] [address] [place], [address] MCV (RBC) [Entitic vol] 89.5 fL Normal 80-94 [facility] Comment on above: Performed By: #### L 501.080 #### [facility] [address] [place], [address] Monocytes/100 WBC (Bld) 8.6 % Normal 0-10 [facility] Comment on above: Performed By: #### L 501.080 #### [facility] [address] [place], [address] Neutrophils/100 WBC (Bld) 54.9 % Normal 47-70 [facility] Comment on above: Performed By: #### L 501.080 #### [facility] [address] [place], [address] Nucleated RBC (Bld) [#/Vol] 0 10*3/uL Normal 0-5 [facility] Comment on above: Performed By: #### L 501.080 #### [facility] [address] [place], [address] Platelet mean volume (Bld) [Entitic vol] 9.1 fL Normal 6.2-12.0 [facility] Comment on above: Performed By: #### L 501.080 #### [facility] [address] [place], [address] Platelets (Bld) [#/Vol] 254 10*3/uL Normal 150-450 [facility] Comment on above: Performed By: #### L 501.080 #### [facility] [address] [place], [address] RBC (Bld) [#/Vol] 5.26 10*6/uL Normal 4.6-6.2 [facility] Comment on above: Performed By: #### L 501.080 #### [facility] [address] [place], [address] RDW SD 46.0 fl High 35.1-43.9 [facility] Comment on above: Performed By: #### L 501.080 #### [facility] [address] [place], [address] WBC (Bld) [#/Vol] 9.1 10*3/uL Normal 4.4-11.0 [facility] Comment on above: Performed By: #### L 501.080 #### [facility] [address] [place], [address] Comprehensive Metabolic Prof ilon 08-03-2024 Albumin [Mass/Vol] 4.0 g/dL Normal 3.5-5.0 [facility] Comment on above: Performed By: #### L 501.080 #### [facility] [address] [place], [address] Albumin/Globulin [Mass ratio] 1.0 {ratio} Normal 0.9-2.4 [facility] Comment on above: Performed By: #### L 501.080 #### [facility] [address] [place], [address] ALK PHOS 124 U/L Normal 40-129 [facility] Comment on above: Performed By: #### L 501.080 #### [facility] [address] [place], [address] ALT [Catalytic activity/Vol] 23 U/L Normal <=46 [facility] Comment on above: Performed By: #### L 501.080 #### [facility] [address] [place], [address] AST [Catalytic activity/Vol] 21 U/L Normal <=37 [facility] Comment on above: Performed By: #### L 501.080 #### [facility] [address] [place], [address] Bilirubin [Mass/Vol] 0.29 mg/dL Normal 0.00-1.30 [facility] Comment on above: Performed By: #### L 501.080 #### [facility] [address] [place], [address] BUN/CRE 11.9 RATIO Normal 10-20 [facility] Comment on above: Performed By: #### L 501.080 #### [facility] [address] [place], [address] Calcium [Mass/Vol] 9.5 mg/dL Normal 7.6-11.0 [facility] Comment on above: Performed By: #### L 501.080 #### [facility] [address] [place], [address] Chloride [Moles/Vol] 99 mmol/L Normal 98-108 [facility] Comment on above: Performed By: #### L 501.080 #### [facility] [address] [place], [address] CO2 [Moles/Vol] 20.4 mmol/L Low 21.0-32.0 [facility] Comment on above: Performed By: #### L 501.080 #### [facility] [address] [place], [address] Creatinine [Mass/Vol] 0.79 mg/dL Normal 0.70-1.20 [facility] Comment on above: Performed By: #### L 501.080 #### [facility] [address] [place], [address] ECRCL 170.07 ml/min Normal 50-250 [facility] Comment on above: Performed By: #### L 501.080 #### [facility] [address] [place], [address] GAP 16 High 5-15 [facility] Comment on above: Performed By: #### L 501.080 #### [facility] [address] [place], [address] GFR/1.73 sq M.predicted among non-blacks MDRD (S/P/Bld) [Vol rate/Area] 109 mL/min/{1.73_m2} Normal >60 [facility] Comment on above: Result Comment: mL/m in/1.73m2 CKD-EPI Creatinine Equation (2020) Performed By: #### L 501.080 #### [facility] [address] [place], [address] Globulin (S) [Mass/Vol] 4.2 g/dL Normal 2.2-4.2 [facility] Comment on above: Performed By: #### L 501.080 #### [facility] [address] [place], [address] Glucose [Mass/Vol] 269 mg/dL High 70-99 [facility] Comment on above: Performed By: #### L 501.080 #### [facility] [address] [place], [address] Potassium [Moles/Vol] 3.8 mmol/L Normal 3.3-5.1 [facility] Comment on above: Performed By: #### L 501.080 #### [facility] [address] [place], [address] Sodium [Moles/Vol] 135 mmol/L Normal 133-145 [facility] Comment on above: Performed By: #### L 501.080 #### [facility] [address] [place], [address] T PROT 8.2 g/dL Normal 5.9-8.4 [facility] Comment on above: Performed By: #### L 501.080 #### [facility] [address] [place], [address] Urea nitrogen [Mass/Vol] 9 mg/dL Normal 4-19 [facility] Comment on above: Performed By: #### L 501.080 #### [facility] [address] [place], [address] Emergency Department Summary on 08-03-2024 Emergency Department Summary [facility] Medical Records Department [address] [place] [address] Emergency Department Summary 08/03/24 MR#: [id number] Acct: [id number] Name: DAYNE MEYER Rep #: [id number] : 1975 48 From: Silver Wheatley MD PCP: Care Physician,No Primary Status:ADM [place] Location: [address] History of Present Illness Chief Complaint: [...] extremities. Equal symmetrical 5 out of 5 technical agronomist strength. Dorsi plantarflexion intact. Nontender. Neurologically he is awake and alert. Answering questions and following commands. No focal motor deficits. Benign exam. Const Vital Signs: 08/03/24 22:20 Temperature 98 F Temperature Source Oral Pulse Rate 85 (more content not included)... Normal [facility] Urine Drug Screen (VISTA)on 08-03-2024 AMPHETAMINES Negative Normal <1000 ng/mL [facility] Comment on above: Performed By: #### L 501.080 #### [facility] [address] [place], [address] BARBITIURATES Negative Normal < 200 ng/mL [facility] Comment on above: Performed By: #### L 501.080 #### [facility] [address] [place], [address] BENZODIAZIPINE Negative Normal < 200 ng/mL [facility] Comment on above: Performed By: #### L 501.080 #### [facility] [address] [place], [address] BUP Ur Drug Scr Negative Normal < 200 ng/mL [facility] Comment on above: Performed By: #### L 501.080 #### [facility] [address] [place], [address] COCAINE Negative Normal < 300 ng/mL [facility] Comment on above: Performed By: #### L 501.080 #### [facility] [address] [place], [address] Fentanyl Negative Normal [facility] Comment on above: Performed By: #### L 501.080 #### [facility] [address] [place], [address] METHADONE Negative Normal < 300 ng/mL [facility] Comment on above: Performed By: #### L 501.080 #### [facility] [address] [place], [address] OPIATES Negative Normal < 300 ng/mL [facility] Comment on above: Performed By: #### L 501.080 #### [facility] [address] [place], [address] OXYCODONE Negative Normal < 100 ng/mL [facility] Comment on above: Performed By: #### L 501.080 #### [facility] [address] [place], [address] PCP Negative Normal < 25 ng/mL [facility] Comment on above: Performed By: #### L 501.080 #### [facility] [address] [place], [address] THC Positive Normal < 50 ng/mL [facility] Comment on above: Result Comment: If c onfirmation testing is needed, a separate order will be required to send out testing to the reference laboratory. Performed By: #### L 501.080 #### [facility] [address] [place], [address] BASIC METABOLIC PANELon - Anion gap [Moles/Vol] 17 mmol/L Normal 10-20 [facility] Comment on above: Order Comment: [facility] has implemented the eGFR calculation approach that does not have a coefficient for race that conforms to the NKF-ASN Task Force Recommendations. Performed By: #### 4 6124 #### [address] [address] Funmi Barlow M.D. [id number] Calcium [Mass/Vol] 9.5 mg/dL Normal 8.4-10.2 [facility] Comment on above: Order Comment: [facility] has implemented the eGFR calculation approach that does not have a coefficient for race that conforms to the NKF-ASN Task Force Recommendations. Performed By: #### 4 6124 #### [facility] [address] [place] [address] Funmi Barlow M.D. [id number] Chloride [Moles/Vol] 98 mmol/L Normal 98-108 [facility] Comment on above: Order Comment: [facility] has implemented the eGFR calculation approach that does not have a coefficient for race that conforms to the NKF-ASN Task Force Recommendations. Performed By: #### 4 6124 #### [place] [address] Funmi Barlow M.D. [id number] Creatinine [Mass/Vol] 0.88 mg/dL Normal 0.50-1.30 [facility] Comment on above: Order Comment: [facility] has implemented the eGFR calculation approach that does not have a coefficient for race that conforms to the NKF-ASN Task Force Recommendations. Performed By: #### 4 6124 #### [place] [address] Funmi Barlow M.D. [id number] EGFR 105 mL/min/1.73 m2 Normal >=60 [facility] Comment on above: Order Comment: [facility] has implemented the eGFR calculation approach that does not have a coefficient for race that conforms to the NKF-ASN Task Force Recommendations. Result Comment: Sana mated GFR was calculated using the 2020 CKD-EPI creatinine equation. Performed By: #### 4 6124 #### [facility] [address] [place] [address]Jewels Barlow M.D. [id number] Glucose [Mass/Vol] 239 mg/dL High 65-99 [facility] Comment on above: Order Comment: [facility] has implemented the eGFR calculation approach that does not have a coefficient for race that conforms to the NKF-ASN Task Force Recommendations. Performed By: #### 4 6124 #### [facility] [address] [place] [address] Funmi Barlow M.D. [id number] HCO3 (Bld) [Moles/Vol] 25 mmol/L Normal 21-32 [facility] Comment on above: Order Comment: [facility] has implemented the eGFR calculation approach that does not have a coefficient for race that conforms to the NKF-ASN Task Force Recommendations. Performed By: #### 4 6124 #### [facility] [address] [place] [address] Funmi Barlow M.D. [id number] Potassium [Moles/Vol] 4.9 mmol/L Normal 3.5-5.1 [facility] Comment on above: Order Comment: [facility] has implemented the eGFR calculation approach that does not have a coefficient for race that conforms to the NKF-ASN Task Force Recommendations. Performed By: #### 4 6124 #### [facility] [address] [place] [address] Funmi Barlow M.D. [id number] Sodium [Moles/Vol] 135 mmol/L Normal 135-145 [facility] Comment on above: Order Comment: [facility] has implemented the eGFR calculation approach that does not have a coefficient for race that conforms to the NKF-ASN Task Force Recommendations. Performed By: #### 4 6124 #### [facility] [address] [place] [address] Funmi Barlow M.D. [id number] Urea nitrogen [Mass/Vol] 25 mg/dL Normal 8-25 [facility] Comment on above: Order Comment: [facility] has implemented the eGFR calculation approach that does not have a coefficient for race that conforms to the NKF-ASN Task Force Recommendations. Performed By: #### 4 6124 #### [facility] [address] [place] [address] Funmi Barlow M.D. [id number] Urea nitrogen/Creatinine [Mass ratio] 28.4 mg/mg High 10.0-20.0 [facility] Comment on above: Order Comment: [facility] has implemented the eGFR calculation approach that does not have a coefficient for race that conforms to the NKF-ASN Task Force Recommendations. Performed By: #### 4 6124 #### [facility] [address] [place] [address] Funmi Barlow M.D. [id number] CBC WITH AUTO DIFFERENTIALon 04-01-2024 AUTO NRBC 0.0 % Normal [facility] Comment on above: Performed By: #### L [id number] #### [facility] [address] [place] [address] Funmi Barlow M.D. [id number] AUTO NRBC ABS COUNT 0.00 K/mcL Normal 0.00-0.00 [facility] Comment on above: Performed By: #### L [id number] #### [facility] [address] [place] [address] Funmi Barlow M.D. [id number] BASOPHILS ABSOLUTE COUNT 0.05 K/mcL Normal 0.00-0.30 [facility] Comment on above: Performed By: #### L [id number] #### [facility] [address] [place] [address] Funmi Barlow M.D. [id number] Basophils/100 WBC (Bld) 0.6 % Normal [facility] Comment on above: Performed By: #### L [id number] #### [facility] [address] [place] [address] Funmi Barlow M.D. [id number] Eosinophils (Bld) [#/Vol] 0.30 10*3/uL Normal 0.00-0.50 [facility] Comment on above: Performed By: #### L [id number] #### [facility] [address] [place] [address] Funmi Barlow M.D. [id number] Eosinophils/100 WBC (Bld) 3.3 % Normal [facility] Comment on above: Performed By: #### L [id number] #### [facility] [address] [place] [address] Funmi Barlow M.D. [id number] Erythrocyte distribution width (RBC) [Ratio] 13.8 % Normal 11.6-14.8 [facility] Comment on above: Performed By: #### L [id number] #### [facility] [address] [place] [address] Fumni Barlow M.D. [id number] Hematocrit (Bld) [Volume fraction] 42.8 % Normal 41.0-53.0 [facility] Comment on above: Performed By: #### L [id number] #### [facility] [address] [place] [address] Funmi Barlow M.D. [id number] Hemoglobin (Bld) [Mass/Vol] 14.9 g/dL Normal 13.5-17.5 [facility] Comment on above: Performed By: #### L [id number] #### [place] [address] Funmi Barlow M.D. [id number] IG ABSOLUTE 0.04 K/mcL Normal 0.00-0.30 [facility] Comment on above: Performed By: #### L [id number] #### [place] [address] Funmi Barlow M.D. [id number] IG PERCENT 0.40 % Normal [facility] Comment on above: Result Comment: The IG parameter is the percentage of metamyelocytes, myelocytes and promyelocytes. An immature granulocyte count (IG) of 1% or more suggests the possibility of infection, an IG count of 3% is very likely related to an infection. Performed By: #### L [id number] #### [place] [address] Funmi Barlow M.D. [id number] Lymphocytes (Bld) [#/Vol] 2.05 10*3/uL Normal 0.90-4.00 [facility] Comment on above: Performed By: #### L [id number] #### [facility] [address] [place] [address] Funmi Barlow M.D. [id number] Lymphocytes/100 WBC (Bld) 22.6 % Normal [facility] Comment on above: Performed By: #### L [id number] #### [facility] [address] [place] [address] Funmi Barlow M.D. [id number] MCH (RBC) [Entitic mass] 33.1 pg Normal 26.0-34.0 [facility] Comment on above: Performed By: #### L [id number] #### [facility] [address] [place] [address] Funmi Barlow M.D. [id number] MCV (RBC) [Entitic vol] 95.1 fL Normal 80.0-100.0 [facility] Comment on above: Performed By: #### L [id number] #### [facility] [address] [place] [address] Funmi Barlow M.D. [id number] MEAN CORPUSCULAR HEMOGLOBIN CONC 34.8 g/dL Normal 31.0-37.0 [facility] Comment on above: Performed By: #### L [id number] #### [place] [address] Funmi Barlow M.D. [id number] Monocytes (Bld) [#/Vol] 0.74 10*3/uL Normal 0.30-0.90 [facility] Comment on above: Performed By: #### L [id number] #### [facility] [address] [place] [address] Funmi Barlow M.D. [id number] Monocytes/100 WBC (Bld) 8.1 % Normal [facility] Comment on above: Performed By: #### L [id number] #### [place] [address] Funmi Barlow M.D. [id number] NEUTROPHILS ABSOLUTE COUNT 5.90 K/mcL Normal 1.70-7.00 [facility] Comment on above: Performed By: #### L [id number] #### [facility] [address] [place] [address] Funmi Barlow M.D. [id number] Neutrophils/100 WBC (Bld) 65.0 % Normal [facility] Comment on above: Performed By: #### L [id number] #### [facility] [address] [place] [address] Funmi Barlow M.D. [id number] Platelet mean volume (Bld) [Entitic vol] 9.3 fL Low 9.4-12.4 [facility] Comment on above: Performed By: #### L [id number] #### [facility] [address] [place] [address] Funmi Barlow M.D. [id number] Platelets (Bld) [#/Vol] 270 10*3/uL Normal 150-400 [facility] Comment on above: Performed By: #### L [id number] #### [facility] [address] [place] [address] Funmi Barlow M.D. [id number] RBC (Bld) [#/Vol] 4.50 10*6/uL Normal 4.50-5.90 [facility] Comment on above: Performed By: #### L [id number] #### [facility] [address] [place] [address] Funmi Barlow M.D. [id number] WBC (Bld) [#/Vol] 9.08 10*3/uL Normal 4.50-11.00 [facility] Comment on above: Performed By: #### L [id number] #### [facility] [address] [place] [address] Funmi Barlow M.D. [id number] ED Prov Noteon 04-01-2024 ED Prov Note ED PROVIDER NOTE [facility] EM[facility]ENCY [facility] NAME: Dayne Meyer AGE: 48 y.o. : 1975 VISIT DATE: 04/01/2024 CSN: [id number] PCP: No primary care provider on file. [...] has some feeling. 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 Past Medical History: [...] Resource Strain: Low Risk (06/27/2021) Received from [facility] Overall Financial Resource Strain (CARDIA) Difficulty of Paying Living Expenses: Not hard at all Food Insecurity: No Food Insecurity (06/27/2021) Received from [facility] Hunger Vital Sign Worried About Running Out of Food in the Last Year: Never true Ran Out of Food in the Last Year: Never true Transportation Needs: No Transportation Needs (03/29/2020) Received from [facility] PRAPARE - Transportation Lack of Transportation (Medical): No Lack of Transportation (Non-Medical): No Physical Activity: Inactive (03/29/2020) Received from [facility] Exercise Vital Sign Days of Exercise per Week: 0 days Minutes of Exercise per Session: 0 min Stress: Stress Concern Present (03/29/2020) Received from [facility] [employer] [place] [employer] - Occupational Stress Questionnaire Feeling of Stress : Very much Social Connections: Moderately Isolated (03/29/2020) Received from [facility] Social Connection and Isolation Panel [NHANES] Frequency of Communication with Friends and Family: Three times a week Frequency of Social Gatherings with Friends and Family: Once a week Attends [employer] Services: More than 4 times per year [...] Hearing normal. Nose: Nose normal. Mouth/Throat: Lips: [place]. Mouth: Mucous membranes are moist. Eyes: Extraocular [...] Normal breath (more content not included)... Normal [facility] XR FOOT LEFT 3+ VIEWS (STAND JESÚS)on [...] 2 diabetes mellitus without complication, unspecified whether senior living insulin use ([facility]) M25.552 Left hip pain M54.50 Low [...] nonspecific. Workstation ID: [id number] Dictated by: REDD FROTS on FriApr 01, 2024 1:29:20 PM EST Transcribed by: REDD FROST on FriApr 01, 2024 1:29:20 PM EST Finalized by: REDD FROST on FriApr 01, 2024 1:29:20 PM EST Normal [facility] Comment on above: Order Comment: Injur y/Trauma [...] 2 diabetes mellitus without complication, unspecified whether terminal system operator insulin use ([facility]) M25.552 Left hip pain M54.50 Low [...] severe superior joint space narrowing and a qqea-ye-qqwn appearance. 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 There are severe degenerative changes of the left hip joint with severe superior joint space narrowing and a akka-so-tlhh appearance. There is subchondral cystic change within [...] FriApr 01, 2024 1:31:06 PM EST Normal [facility] Comment on above: Order Comment: Injur y/Trauma [...] 2 diabetes mellitus without complication, unspecified whether terminal system operator insulin use ([facility]) M25.552 Left hip pain M54.50 Low [...] joints bilaterally at the edge of the cwexz-ar-jier. IMPRESSION: 1. 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 2. 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 3. At the edge of the onauq-si-fbdd there are severe degenerative changes again seen to involve the hip joints bilaterally. Workstation ID: [id number] Dictated by: REDD FROST on FriApr 01, 2024 1:32:52 PM EST Transcribed by: REDD FROST on FriApr 01, 2024 1:32:52 PM EST Finalized by: REDD FROST on Christy Apr 01, 2024 1:32:52 PM EST Normal [facility] Comment on above: Order Comment: Injur y/Trauma or Illness?:Illness/Other low back/left hip pain How long have you had these symptoms (acute/chronic)?:Unknown Reason for exam?:low back/left hip pain History of cancer?:. Surgeries, chemotherapy, or radiation?:. Type of Exam?:Initial Additional signs and symptoms?:low back/left hip pain Bedside Glucoseon 03-29-2024 FINGERSTICK GLU 276 mg/dL High 74-106 [facility] Comment on above: Result Comment: RIP GEMENT OF PATIENT CARE PER NURSING PROTOCOL Performed By: #### L 501.080 #### [facility] [address] [place], [address] FINGERSTICK GLU 262 mg/dL High 74-106 [facility] Comment on above: Result Comment: RIP GEMENT OF PATIENT CARE PER NURSING PROTOCOL Performed By: #### L 505.5000, L501.9100, L500.2500, L100.0100 #### [facility] [address] [place], [address] Discharge Instructionon 03-17 Discharge Instruction [facility] Medical Records Department [address] [place] [address] Instructions for Home/Discharge Instructions 03/29/24 0829 MR#: [id number] Acct: [id number] Name: DAYNE MEYER Rep #: [id number] : 1975 48 From: Wandy Pittman MD [...] Kristine Alexander MD; KEVIN HAIRSTON Signed Normal [facility] Bedside Glucoseon 03-28-2024 FINGERSTICK GLU 403 mg/dL High -106 [facility] Comment on above: Result Comment: RIP GEMENT OF PATIENT CARE PER NURSING PROTOCOL Performed By: #### L 501.080 #### [facility] [address] [place], [address] FINGERSTICK GLU 198 mg/dL High 74-106 [facility] Comment on above: Result Comment: RIP GEMENT OF PATIENT CARE PER NURSING PROTOCOL Performed By: #### L 505.5000, L501.9100, L500.2500, L100.0100 #### [facility] [address] [place], [address] FINGERSTICK GLU 200 mg/dL High [facility]106 [facility] Comment on above: Result Comment: RIP GEMENT OF PATIENT CARE PER NURSING PROTOCOL Performed By: #### L 501.080 #### [facility] [address] [place], [address] FINGERSTICK GLU 207 mg/dL High [facility]106 [facility] Comment on above: Result Comment: RIP GEMENT OF PATIENT CARE PER NURSING PROTOCOL Performed By: #### L 505.5000, L501.9100, L500.2500, L100.0100 #### [facility] [address] [place], [address] Bedside Glucoseon 03-27-2024 FINGERSTICK GLU 201 mg/dL High -106 [facility] Comment on above: Result Comment: RIP GEMENT OF PATIENT CARE PER NURSING PROTOCOL Performed By: #### L 501.080 #### [facility] [address] [place], [address] FINGERSTICK GLU 232 mg/dL High -106 [facility] Comment on above: Result Comment: RIP GEMENT OF PATIENT CARE PER NURSING PROTOCOL Performed By: #### L 505.5000, L501.9100, L500.2500, L100.0100 #### [facility] [address] [place], [address] FINGERSTICK GLU 233 mg/dL High 74-106 [facility] Comment on above: Result Comment: RIP GEMENT OF PATIENT CARE PER NURSING PROTOCOL Performed By: #### L 505.5000, L501.9100, L500.2500, L100.0100 #### [facility] [address] [place], [address] FINGERSTICK GLU 197 mg/dL High 74-106 [facility] Comment on above: Result Comment: RIP GEMENT OF PATIENT CARE PER NURSING PROTOCOL Performed By: #### L 505.5000, L501.9100, L500.2500, L100.0100 #### [facility] [address] [place], [address] Alcohol, Blood (Medical)-Ser umon 03-26-2024 SERUM ETOH < 3.0 Normal [facility] Comment on above: Result Comment: The serum:whole blood ethanol ratio is approximately 1.14 and varies slightly with hematocrit. Medical Alcohol reference interval and critical value in non-tolerant individuals; 50 - 100 Impairment 100 Intoxication 100 - 250 Severe Poisoning 250 - 400 Deep/possible fatal coma Performed By: #### L 505.5000, L501.9100, L500.2500, L100.0100 #### [facility] [address] [place], [address] Bedside Glucoseon 03-26-2024 FINGERSTICK GLU 241 mg/dL High 74-106 [facility] Comment on above: Result Comment: RIP GEMENT OF PATIENT CARE PER NURSING PROTOCOL Performed By: #### L 501.080 #### [facility] [address] [place], [address] FINGERSTICK GLU 172 mg/dL High 74-106 [facility] Comment on above: Result Comment: RIP GEMENT OF PATIENT CARE PER NURSING PROTOCOL Performed By: #### L 501.080 #### [facility] [address] [place], [address] CBC W/Diff, Automatedon 01-1 0-2024 Absolute Lymph 1.59 X10 3/uL Normal 0.83-4.51 [facility] Comment on above: Performed By: #### L 505.5000, L501.9100, L500.2500, L100.0100 #### [facility] [address] [place], [address] Absolute Neut 4.7 X10 3/uL Normal 2.0-7.7 [facility] Comment on above: Performed By: #### L 505.5000, L501.9100, L500.2500, L100.0100 #### [facility] [address] [place], [address] Basophils/100 WBC (Bld) 0.7 % Normal 0-1 [facility] Comment on above: Performed By: #### L 505.5000, L501.9100, L500.2500, L100.0100 #### [facility] [address] [place], [address] Eosinophils/100 WBC (Bld) 2.6 % Normal 0-5 [facility] Comment on above: Performed By: #### L 505.5000, L501.9100, L500.2500, L100.0100 #### [facility] [address] [place], [address] Erythrocyte distribution width (RBC) [Ratio] 14.2 % Normal 11.6-14.6 [facility] Comment on above: Performed By: #### L 505.5000, L501.9100, L500.2500, L100.0100 #### [facility] [address] [place], [address] Hematocrit (Bld) [Volume fraction] 44.9 % Normal 40-54 [facility] Comment on above: Performed By: #### L 505.5000, L501.9100, L500.2500, L100.0100 #### [facility] [address] [place], [address] Hemoglobin (Bld) [Mass/Vol] 15.7 g/dL Normal 13.0-16.5 [facility] Comment on above: Performed By: #### L 505.5000, L501.9100, L500.2500, L100.0100 #### [facility] [address] [place], [address] IG% 0.700 Normal 0.0-0.9 [facility] Comment on above: Result Comment: IG% - Immature Granulocytes (promyelocytes, myelocytes and metamyelocytes) > 1% indicates that a LEFT SHIFT is Present. Performed By: #### L 505.5000, L501.9100, L500.2500, L100.0100 #### [facility] [address] [place], [address] Lymphocytes/100 WBC (Bld) 21.5 % Normal 19-41 [facility] Comment on above: Performed By: #### L 505.5000, L501.9100, L500.2500, L100.0100 #### [facility] [address] [place], [address] MCH (RBC) [Entitic mass] 33.1 pg High 27.0-32.0 [facility] Comment on above: Performed By: #### L 505.5000, L501.9100, L500.2500, L100.0100 #### [facility] [address] [place], [address] MCHC (RBC) [Mass/Vol] 35.0 g/dL Normal 32-36 [facility] Comment on above: Performed By: #### L 505.5000, L501.9100, L500.2500, L100.0100 #### [facility] [address] [place], [address] MCV (RBC) [Entitic vol] 94.5 fL High 80-94 [facility] Comment on above: Performed By: #### L 505.5000, L501.9100, L500.2500, L100.0100 #### [facility] [address] [place], [address] Monocytes/100 WBC (Bld) 10.9 % High 0-10 [facility] Comment on above: Performed By: #### L 505.5000, L501.9100, L500.2500, L100.0100 #### [facility] [address] [place], [address] Neutrophils/100 WBC (Bld) 63.6 % Normal 47-70 [facility] Comment on above: Performed By: #### L 505.5000, L501.9100, L500.2500, L100.0100 #### [facility] [address] [place], [address] Nucleated RBC (Bld) [#/Vol] 0 10*3/uL Normal 0-5 [facility] Comment on above: Performed By: #### L 505.5000, L501.9100, L500.2500, L100.0100 #### [facility] [address] [place], [address] Platelet mean volume (Bld) [Entitic vol] 9.1 fL Normal 6.2-12.0 [facility] Comment on above: Performed By: #### L 505.5000, L501.9100, L500.2500, L100.0100 #### [facility] [address] [place], [address] Platelets (Bld) [#/Vol] 222 10*3/uL Normal 150-450 [facility] Comment on above: Performed By: #### L 505.5000, L501.9100, L500.2500, L100.0100 #### [facility] [address] [place], [address] RBC (Bld) [#/Vol] 4.75 10*6/uL Normal 4.6-6.2 [facility] Comment on above: Performed By: #### L 505.5000, L501.9100, L500.2500, L100.0100 #### [facility] [address] [place], [address] RDW SD 49.0 fl High 35.1-43.9 [facility] Comment on above: Performed By: #### L 505.5000, L501.9100, L500.2500, L100.0100 #### [facility] [address] [place], [address] WBC (Bld) [#/Vol] 7.4 10*3/uL Normal 4.4-11.0 [facility] Comment on above: Performed By: #### L 505.5000, L501.9100, L500.2500, L100.0100 #### [facility] [address] [place], [address] Comprehensive Metabolic Prof [facility] 03-26-2024 Albumin [Mass/Vol] 3.3 g/dL Normal 3.2-5.0 [facility] Comment on above: Performed By: #### L 505.5000, L501.9100, L500.2500, L100.0100 #### [facility] [address] [place], [address] Albumin/Globulin [Mass ratio] 0.8 {ratio} Low 0.9-2.4 [facility] Comment on above: Performed By: #### L 505.5000, L501.9100, L500.2500, L100.0100 #### [facility] [address] [place], [address] ALK P 119 U/L High 45-117 [facility] Comment on above: Performed By: #### L 505.5000, L501.9100, L500.2500, L100.0100 #### [facility] [address] [place], [address] ALT [Catalytic activity/Vol] 34 U/L Normal 16-61 [facility] Comment on above: Performed By: #### L 505.5000, L501.9100, L500.2500, L100.0100 #### [facility] [address] [place], [address] AST [Catalytic activity/Vol] 16 U/L Normal 15-37 [facility] Comment on above: Performed By: #### L 505.5000, L501.9100, L500.2500, L100.0100 #### [facility] [address] [place], [address] Bilirubin [Mass/Vol] 0.40 mg/dL Normal 0.20-1.00 [facility] Comment on above: Result Comment: For patients on eltrombopag therapy, use of Dimension [place] TBIL is not recommended. Performed By: #### L 505.5000, L501.9100, L500.2500, L100.0100 #### [facility] [address] [place], [address] BUN/CRE 20.0 RATIO Normal 10-20 [facility] Comment on above: Performed By: #### L 505.5000, L501.9100, L500.2500, L100.0100 #### [facility] [address] [place], [address] CA,Total 9.4 mg/dL Normal 8.5-10.1 [facility] Comment on above: Performed By: #### L 505.5000, L501.9100, L500.2500, L100.0100 #### [facility] [address] [place], [address] Chloride [Moles/Vol] 104 mmol/L Normal 98-107 [facility] Comment on above: Performed By: #### L 505.5000, L501.9100, L500.2500, L100.0100 #### [facility] [address] [place], [address] CO2 [Moles/Vol] 25.0 mmol/L Normal 21.0-32.0 [facility] Comment on above: Performed By: #### L 505.5000, L501.9100, L500.2500, L100.0100 #### [facility] [address] [place], [address] Creatinine [Mass/Vol] 0.85 mg/dL Normal 0.70-1.30 [facility] Comment on above: Result Comment: The validity of the calculated GFR GFRAA in patients over 70 years has not been determined. Clinical correlation is essential. Performed By: #### L 505.5000, L501.9100, L500.2500, L100.0100 #### [facility] [address] [place], [address] ECRCL 159.55 ml/min Normal [facility] Comment on above: Performed By: #### L 505.5000, L501.9100, L500.2500, L100.0100 #### [facility] [address] [place], [address] EST GFR - AA 123 mL/min Normal >60 [facility] Comment on above: Result Comment: Afri can Brazilian GFR Calc Performed By: #### L 505.5000, L501.9100, L500.2500, L100.0100 #### [facility] [address] [place], [address] GAP 4 Low 5-15 [facility] Comment on above: Performed By: #### L 505.5000, L501.9100, L500.2500, L100.0100 #### [facility] [address] [place], [address] GFR/1.73 sq M.predicted among non-blacks MDRD (S/P/Bld) [Vol rate/Area] 102 mL/min/{1.73_m2} Normal >60 [facility] Comment on above: Result Comment: Non- GFR Calc Performed By: #### L 505.5000, L501.9100, L500.2500, L100.0100 #### [facility] [address] [place], [address] Globulin (S) [Mass/Vol] 4.4 g/dL High 2.2-4.2 [facility] Comment on above: Performed By: #### L 505.5000, L501.9100, L500.2500, L100.0100 #### [facility] [address] [place], [address] Glucose [Mass/Vol] 195 mg/dL High 74-106 [facility] Comment on above: Result Comment: Fast ing Glucose result greater than or equal to 126 mg/dL suggests DIABETES MELLITUS per A.D.A. criteria. Performed By: #### L 505.5000, L501.9100, L500.2500, L100.0100 #### [facility] [address] [place], [address] Potassium [Moles/Vol] 4.2 mmol/L Normal 3.5-5.1 [facility] Comment on above: Performed By: #### L 505.5000, L501.9100, L500.2500, L100.0100 #### [facility] [address] [place], [address] Sodium [Moles/Vol] 134 mmol/L Low 136-145 [facility] Comment on above: Performed By: #### L 505.5000, L501.9100, L500.2500, L100.0100 #### [facility] [address] [place], [address] T PROT 7.7 g/dL Normal 6.4-8.2 [facility] Comment on above: Performed By: #### L 505.5000, L501.9100, L500.2500, L100.0100 #### [facility] [address] [place], [address] Urea nitrogen [Mass/Vol] 17 mg/dL Normal 7-18 [facility] Comment on above: Performed By: #### L 505.5000, L501.9100, L500.2500, L100.0100 #### [facility] [address] [place], [address] Emergency Department Summary on 03-26-2024 Emergency Department Summary [facility] Medical Records Department [address] [place] [address] Emergency Department Summary 03/26/24 MR#: [id number] Acct: [id number] Name: DAYNE MEYER Rep #: [id number] : 1975 48 From: Tegan MONACO PCP: KEVIN HAIRSTON Status:[facility] History of Present Illness Chief Complaint: ETOH Intox Narrative Narrative: 48-year-old male presents requesting alcohol detox.He states he drinks 4 pints of beer daily with last drink yesterday morning. He reports increased anxiety but no other symptoms of withdrawal. He has no history of seizures or delirium tremens. States he detoxed at [facility] 6 months ago but then after that had several stressors including his mother's , divorce, and having to leave his apartment so he started drinking again. He smokes about a pack a day of cigarettes but denies other drug use. [facility] Medical History (Updated 03/26/24 @ 14:29 by [...] a nicotine (more content not included)... Normal [facility] H AND P Exam - [facility]iston 03-26-2024 H&P Exam - Hospitalist [facility] Medical Records Department [address] [place] [address] H P Exam - Hospitalist 03/26/24 1353 MR#: [id number] Acct: [id number] Name: DAYNE MEYER Rep #: [id number] : 1975 48 From: Kristine Alexander MD PCP: KEVIN HAIRSTON Status:ADM IN Location: [facility] [id number] HPI - General General Date of Admission: 03/26/24 Date of Service: 03/26/24 Chief Complaint: EtOH withdrawal, treatment HPI Narrative The patient is a 48 y/o M w/ PMHx: Homelessness living in his vehicle, Tobacco use, Asthma with allergic rhinitis, Morbid obesity, HTN, HLD, Anxiety and Depression/PTSD, Diabetes mellitus type II, RLS who presents to the [facility] on 03/26/2024 w/ noted acute EtOH withdrawal, [...] nicotine patch 21 mg transdermal x 1. [facility] Medical History Allergic rhinitis Asthma Anxiety and [...] or polydipsia. (more content not included)... Normal [facility] Magnesiumon 03-26-2024 Magnesium [Mass/Vol] 2.0 mg/dL Normal 1.6-2.6 [facility] Comment on above: Order Comment: Comme nts: May add to ED labsComments: may add to ED labs Performed By: #### L 501.080 #### [facility] [address] [place], [address] Phosphoruson 03-26-2024 Phosphate [Mass/Vol] 3.9 mg/dL Normal 2.5-4.9 [facility] Comment on above: Order Comment: Comme nts: May add to ED labsComments: may add to ED labs Performed By: #### L 501.080 #### [facility] [address] [place], [address] Urine Drug Screen (VISTA)on 03-26-2024 AMPHETAMINES Negative Normal <1000 ng/mL [facility] Comment on above: Performed By: #### L 505.5000, L501.9100, L500.2500, L100.0100 #### [facility] [address] [place], [address] BARBITIURATES Negative Normal < 200 ng/mL [facility] Comment on above: Performed By: #### L 505.5000, L501.9100, L500.2500, L100.0100 #### [facility] [address] [place], [address] BENZODIAZIPINE Negative Normal < 200 ng/mL [facility] Comment on above: Performed By: #### L 505.5000, L501.9100, L500.2500, L100.0100 #### [facility] [address] [place], [address] COCAINE Negative Normal < 300 ng/mL [facility] Comment on above: Performed By: #### L 505.5000, L501.9100, L500.2500, L100.0100 #### [facility] [address] [place], [address] ECSTACY Negative Normal < 500 ng/mL [facility] Comment on above: Performed By: #### L 505.5000, L501.9100, L500.2500, L100.0100 #### [facility] [address] [place], [address] METHADONE Negative Normal < 300 ng/mL [facility] Comment on above: Performed By: #### L 505.5000, L501.9100, L500.2500, L100.0100 #### [facility] [address] [place], [address] OPIATES Negative Normal < 300 ng/mL [facility] Comment on above: Performed By: #### L 505.5000, L501.9100, L500.2500, L100.0100 #### [facility] [address] [place], [address] PCP Negative Normal < 25 ng/mL [facility] Comment on above: Performed By: #### L 505.5000, L501.9100, L500.2500, L100.0100 #### [facility] [address] [place], [address] THC Negative Normal < 50 ng/mL [facility] Comment on above: Performed By: #### L 505.5000, L501.9100, L500.2500, L100.0100 #### [facility] [address] [place], [address] VISTA UDS PH 6 Normal [facility] Comment on above: Performed By: #### L 505.5000, L501.9100, L500.2500, L100.0100 #### [facility] [address] [place], [address] Bedside Glucoseon 11-13-2023 FINGERSTICK GLU 125 mg/dL High 74-106 [facility] Comment on above: Result Comment: RIP GEMENT OF PATIENT CARE PER NURSING PROTOCOL Performed By: #### L 501.080 #### [facility] [address] [place], [address] FINGERSTICK GLU 146 mg/dL High 74-106 [facility] Comment on above: Result Comment: RIP GEMENT OF PATIENT CARE PER NURSING PROTOCOL Performed By: #### L 501.080 #### [facility] [address] [place], [address] Discharge Instructionon 10-16 Discharge Instruction [facility] Medical Records Department [address] [facility] [place] [address] Instructions for Home/Discharge Instructions 11/13/23 1256 MR#: [id number] Acct: [id number] Name: DAYNE MEYER Rep #: [id number] : 1975 48 From: Ronnie Witt DO [...] Wandy Pittman MD; KEVIN HAIRSTON Signed Normal [facility] Bedside Glucoseon 11-12-2023 FINGERSTICK GLU 191 mg/dL High 74-106 [facility] Comment on above: Result Comment: RIP GEMENT OF PATIENT CARE PER NURSING PROTOCOL Performed By: #### L 501.9100 #### [facility] [address] [place], [address] FINGERSTICK GLU 177 mg/dL High -106 [facility] Comment on above: Result Comment: RIP GEMENT OF PATIENT CARE PER NURSING PROTOCOL Performed By: #### L 505.5000, L501.9100, L500.2500, L100.0100 #### [facility] [address] [place], [address] FINGERSTICK GLU 141 mg/dL High -106 [facility] Comment on above: Result Comment: RIP GEMENT OF PATIENT CARE PER NURSING PROTOCOL Performed By: #### L 501.080 #### [facility] [address] [place], [address] FINGERSTICK GLU 155 mg/dL High [facility]106 [facility] Comment on above: Result Comment: RIP GEMENT OF PATIENT CARE PER NURSING PROTOCOL Performed By: #### L 505.5000, L501.9100, L500.2500, L100.0100 #### [facility] [address] [place], [address] 12 Lead EKGon 11-11-2023 12 Lead EKG [facility] Cardiovascular Services [address] [place] [address] 12 Lead EKG 11/11/23 0911 MR#: [id number] Acct: [id number] Name: DAYNE MEYER Rep #: [id number] : 1975 48 From: Juanjo Boyer MD [...] previous ECGs available Confirmed by Juanjo Boyer ([id number]), acquisitions editor CHERELLE SON ([id number]) on 11/14/2023 6:37:22 AM Referred By: Confirmed By:Juanjo Boyer 11/14/23 0637 Date Juanjo Boyer MD CC: Dr. Ronnie Witt DO; KEVIN HAIRSTON Signed Normal [facility] Bedside Glucoseon 11-11-2023 FINGERSTICK GLU 213 mg/dL High [address] [place] [address] Comment on above: Result Comment: RIP GEMENT OF PATIENT CARE PER NURSING PROTOCOL Performed By: #### L 505.5000, L501.9100, L500.2500, L100.0100 #### [facility] [address] [place], [address] FINGERSTICK GLU 152 mg/dL High [address] [place] [address] Comment on above: Result Comment: RIP GEMENT OF PATIENT CARE PER NURSING PROTOCOL Performed By: #### L 505.5000, L501.9100, L500.2500, L100.0100 #### [facility] [address] [place], [address] FINGERSTICK GLU 179 mg/dL High [address] [place] [address] Comment on above: Result Comment: RIP GEMENT OF PATIENT CARE PER NURSING PROTOCOL Performed By: #### L 505.5000, L501.9100, L500.2500, L100.0100 #### [facility] [address] [place], [address] FINGERSTICK GLU 145 mg/dL High 74-106 [facility] Comment on above: Result Comment: RIP GEMENT OF PATIENT CARE PER NURSING PROTOCOL Performed By: #### L 501.9100 #### [facility] [address] [place], [address] FINGERSTICK GLU 131 mg/dL High 74-106 [facility] Comment on above: Result Comment: RIP GEMENT OF PATIENT CARE PER NURSING PROTOCOL Performed By: #### L 501.080 #### [facility] [address] [place], [address] CBC W/Diff, Automatedon 10-16 Absolute Lymph 1.85 X10 3/uL Normal 0.83-4.51 [facility] Comment on above: Performed By: #### L 505.5000, L501.9100, L500.2500, L100.0100 #### [facility] [address] [place], [address] Absolute Neut 5.1 X10 3/uL Normal 2.0-7.7 [facility] Comment on above: Performed By: #### L 505.5000, L501.9100, L500.2500, L100.0100 #### [facility] [address] [place], [address] Basophils/100 WBC (Bld) 0.6 % Normal 0-1 [facility] Comment on above: Performed By: #### L 505.5000, L501.9100, L500.2500, L100.0100 #### [facility] [address] [place], [address] Eosinophils/100 WBC (Bld) 2.6 % Normal 0-5 [facility] Comment on above: Performed By: #### L 505.5000, L501.9100, L500.2500, L100.0100 #### [facility] [address] [place], [address] Erythrocyte distribution width (RBC) [Ratio] 12.7 % Normal 11.6-14.6 [facility] Comment on above: Performed By: #### L 505.5000, L501.9100, L500.2500, L100.0100 #### [facility] [address] [place], [address] Hematocrit (Bld) [Volume fraction] 40.8 % Normal 40-54 [facility] Comment on above: Performed By: #### L 505.5000, L501.9100, L500.2500, L100.0100 #### [facility] [address] [place], [address] Hemoglobin (Bld) [Mass/Vol] 14.4 g/dL Normal 13.0-16.5 [facility] Comment on above: Performed By: #### L 505.5000, L501.9100, L500.2500, L100.0100 #### [facility] [address] [place], [address] IG% 0.700 Normal 0.0-0.9 [facility] Comment on above: Result Comment: IG% - Immature Granulocytes (promyelocytes, myelocytes and metamyelocytes) > 1% indicates that a LEFT SHIFT is Present. Performed By: #### L 505.5000, L501.9100, L500.2500, L100.0100 #### [facility] [address] [place], [address] Lymphocytes/100 WBC (Bld) 23.0 % Normal 19-41 [facility] Comment on above: Performed By: #### L 505.5000, L501.9100, L500.2500, L100.0100 #### [facility] [address] [place], [address] MCH (RBC) [Entitic mass] 33.2 pg High 27.0-32.0 [facility] Comment on above: Performed By: #### L 505.5000, L501.9100, L500.2500, L100.0100 #### [facility] [address] [place], [address] MCHC (RBC) [Mass/Vol] 35.3 g/dL Normal 32-36 [facility] Comment on above: Performed By: #### L 505.5000, L501.9100, L500.2500, L100.0100 #### [facility] [address] [place], [address] MCV (RBC) [Entitic vol] 94.0 fL Normal 80-94 [facility] Comment on above: Performed By: #### L 505.5000, L501.9100, L500.2500, L100.0100 #### [facility] [address] [place], [address] Monocytes/100 WBC (Bld) 10.2 % High 0-10 [facility] Comment on above: Performed By: #### L 505.5000, L501.9100, L500.2500, L100.0100 #### [facility] [address] [place], [address] Neutrophils/100 WBC (Bld) 62.9 % Normal 47-70 [facility] Comment on above: Performed By: #### L 505.5000, L501.9100, L500.2500, L100.0100 #### [facility] [address] [place], [address] Nucleated RBC (Bld) [#/Vol] 0 10*3/uL Normal 0-5 [facility] Comment on above: Performed By: #### L 505.5000, L501.9100, L500.2500, L100.0100 #### [facility] [address] [place], [address] Platelet mean volume (Bld) [Entitic vol] 8.5 fL Normal 6.2-12.0 [facility] Comment on above: Performed By: #### L 505.5000, L501.9100, L500.2500, L100.0100 #### [facility] [address] [place], [address] Platelets (Bld) [#/Vol] 267 10*3/uL Normal 150-450 [facility] Comment on above: Performed By: #### L 505.5000, L501.9100, L500.2500, L100.0100 #### [facility] [address] [place], [address] RBC (Bld) [#/Vol] 4.34 10*6/uL Low 4.6-6.2 [facility] Comment on above: Performed By: #### L 505.5000, L501.9100, L500.2500, L100.0100 #### [facility] [address] [place], [address] RDW SD 43.8 fl Normal 35.1-43.9 [facility] Comment on above: Performed By: #### L 505.5000, L501.9100, L500.2500, L100.0100 #### [facility] [address] [place], [address] WBC (Bld) [#/Vol] 8.1 10*3/uL Normal 4.4-11.0 [facility] Comment on above: Performed By: #### L 505.5000, L501.9100, L500.2500, L100.0100 #### [facility] [address] [place], [address] Comprehensive Metabolic Prof ilon 11-11-2023 Albumin [Mass/Vol] 2.6 g/dL Low 3.2-5.0 [facility] Comment on above: Performed By: #### L 505.5000, L501.9100, L500.2500, L100.0100 #### [facility] [address] [place], [address] Albumin/Globulin [Mass ratio] 0.6 {ratio} Low 0.9-2.4 [facility] Comment on above: Performed By: #### L 505.5000, L501.9100, L500.2500, L100.0100 #### [facility] [address] [place], [address] ALK P 110 U/L Normal 45-117 [facility] Comment on above: Performed By: #### L 505.5000, L501.9100, L500.2500, L100.0100 #### [facility] [address] [place], [address] ALT [Catalytic activity/Vol] 23 U/L Normal 16-61 [facility] Comment on above: Performed By: #### L 505.5000, L501.9100, L500.2500, L100.0100 #### [facility] [address] [place], [address] AST [Catalytic activity/Vol] 19 U/L Normal 15-37 [facility] Comment on above: Performed By: #### L 505.5000, L501.9100, L500.2500, L100.0100 #### [facility] [address] [place], [address] Bilirubin [Mass/Vol] 0.50 mg/dL Normal 0.20-1.00 [facility] Comment on above: Result Comment: For patients on eltrombopag therapy, use of Dimension [place] TBIL is not recommended. Performed By: #### L 505.5000, L501.9100, L500.2500, L100.0100 #### [facility] [address] [place], [address] BUN/CRE 19.2 RATIO Normal 10-20 [facility] Comment on above: Performed By: #### L 505.5000, L501.9100, L500.2500, L100.0100 #### [facility] [address] [place], [address] CA,Total 9.2 mg/dL Normal 8.5-10.1 [facility] Comment on above: Performed By: #### L 505.5000, L501.9100, L500.2500, L100.0100 #### [facility] [address] [place], [address] Chloride [Moles/Vol] 101 mmol/L Normal 98-107 [facility] Comment on above: Performed By: #### L 505.5000, L501.9100, L500.2500, L100.0100 #### [facility] [address] [place], [address] CO2 [Moles/Vol] 25.0 mmol/L Normal 21.0-32.0 [facility] Comment on above: Performed By: #### L 505.5000, L501.9100, L500.2500, L100.0100 #### [facility] [address] [place], [address] Creatinine [Mass/Vol] 0.68 mg/dL Low 0.70-1.30 [facility] Comment on above: Result Comment: The validity of the calculated GFR GFRAA in patients over 70 years has not been determined. Clinical correlation is essential. Performed By: #### L 505.5000, L501.9100, L500.2500, L100.0100 #### [facility] [address] [place], [address] ECRCL 194.66 ml/min Normal [facility] Comment on above: Performed By: #### L 505.5000, L501.9100, L500.2500, L100.0100 #### [facility] [address] [place], [address] EST GFR - AA 160 mL/min Normal >60 [facility] Comment on above: Result Comment: Afri can Brazilian GFR Calc Performed By: #### L 505.5000, L501.9100, L500.2500, L100.0100 #### [facility] [address] [place], [address] GAP 9 Normal 5-15 [facility] Comment on above: Performed By: #### L 505.5000, L501.9100, L500.2500, L100.0100 #### [facility] [address] [place], [address] GFR/1.73 sq M.predicted among non-blacks MDRD (S/P/Bld) [Vol rate/Area] 132 mL/min/{1.73_m2} Normal >60 [facility] Comment on above: Result Comment: Non- GFR Calc Performed By: #### L 505.5000, L501.9100, L500.2500, L100.0100 #### [facility] [address] [place], [address] Globulin (S) [Mass/Vol] 4.0 g/dL Normal 2.2-4.2 [facility] Comment on above: Performed By: #### L 505.5000, L501.9100, L500.2500, L100.0100 #### [facility] [address] [place], [address] Glucose [Mass/Vol] 126 mg/dL High 74-106 [facility] Comment on above: Result Comment: Fast ing Glucose result greater than or equal to 126 mg/dL suggests DIABETES MELLITUS per A.D.A. criteria. Performed By: #### L 505.5000, L501.9100, L500.2500, L100.0100 #### [facility] [address] [place], [address] Potassium [Moles/Vol] 4.3 mmol/L Normal 3.5-5.1 [facility] Comment on above: Performed By: #### L 505.5000, L501.9100, L500.2500, L100.0100 #### [facility] [address] [place], [address] Sodium [Moles/Vol] 135 mmol/L Low 136-145 [facility] Comment on above: Performed By: #### L 505.5000, L501.9100, L500.2500, L100.0100 #### [facility] [address] [place], [address] T PROT 6.6 g/dL Normal 6.4-8.2 [facility] Comment on above: Performed By: #### L 505.5000, L501.9100, L500.2500, L100.0100 #### [facility] [address] [place], [address] Urea nitrogen [Mass/Vol] 13 mg/dL Normal 7-18 [facility] Comment on above: Performed By: #### L 505.5000, L501.9100, L500.2500, L100.0100 #### [facility] [address] [place], [address] Hemoglobin A1con 11-11-2023 HbA1c (Bld) [Mass fraction] 5.9 % High 3.8-5.6 [facility] Comment on above: Result Comment: Norm al < 5.7 % Prediabetic 5.7 - 6.4 % Diabetic >or= 6.5 % Please note range changes. Performed By: #### L 505.5000, L501.9100, L500.2500, L100.0100 #### [facility] [address] [place], [address] Magnesiumon 11-11-2023 Magnesium [Mass/Vol] 1.9 mg/dL Normal 1.6-2.6 [facility] Comment on above: Performed By: #### L 505.5000, L501.9100, L500.2500, L100.0100 #### [facility] [address] [place], [address] Prothrombin Time w/INRon INR Coag (PPP) [Relative time] 1.1 {INR} Normal [facility] Comment on above: Performed By: #### L 505.5000, L501.9100, L500.2500, L100.0100 #### [facility] [address] [place], [address] PT Coag (PPP) [Time] 13.9 s Normal 11.7-14.9 [facility] Comment on above: Performed By: #### L 505.5000, L501.9100, L500.2500, L100.0100 #### [facility] [address] [place], [address] Thyroid Stim Hormone (TSH)on 11-11-2023 TSH 2.510 uIU/mL Normal 0.358-3.740 [facility] Comment on above: Performed By: #### L 505.5000, L501.9100, L500.2500, L100.0100 #### [facility] [address] [place], [address] Alcohol, Blood (Medical)-Ser umon 11-10-2023 SERUM ETOH 183.0 mg/dL Normal [facility] Comment on above: Result Comment: The serum:whole blood ethanol ratio is approximately 1.14 and varies slightly with hematocrit. Medical Alcohol reference interval and critical value in non-tolerant individuals; 50 - 100 Impairment 100 Intoxication 100 - 250 Severe Poisoning 250 - 400 Deep/possible fatal coma Performed By: #### L 505.5000, L501.9100, L500.2500, L100.0100 #### [facility] [address] [place], [address] Basic Metabolic Profile (BMP )on 11-10-2023 BUN/CRE 15.8 RATIO Normal 10-20 [facility] Comment on above: Performed By: #### L 505.5000, L501.9100, L500.2500, L100.0100 #### [facility] [address] [place], [address] CA,Total 8.9 mg/dL Normal 8.5-10.1 [facility] Comment on above: Performed By: #### L 505.5000, L501.9100, L500.2500, L100.0100 #### [facility] [address] [place], [address] Chloride [Moles/Vol] 95 mmol/L Low 98-107 [facility] Comment on above: Performed By: #### L 505.5000, L501.9100, L500.2500, L100.0100 #### [facility] [address] [place], [address] CO2 [Moles/Vol] 19.0 mmol/L Low 21.0-32.0 [facility] Comment on above: Performed By: #### L 505.5000, L501.9100, L500.2500, L100.0100 #### [facility] [address] [place], [address] Creatinine [Mass/Vol] 0.82 mg/dL Normal 0.70-1.30 [facility] Comment on above: Result Comment: The validity of the calculated GFR GFRAA in patients over 70 years has not been determined. Clinical correlation is essential. Performed By: #### L 505.5000, L501.9100, L500.2500, L100.0100 #### [facility] [address] [place], [address] EST GFR - AA 128 mL/min Normal >60 [facility] Comment on above: Result Comment: Afri can Brazilian GFR Calc Performed By: #### L 505.5000, L501.9100, L500.2500, L100.0100 #### [facility] [address] [place], [address] GAP 13 Normal 5-15 [facility] Comment on above: Performed By: #### L 505.5000, L501.9100, L500.2500, L100.0100 #### [facility] [address] [place], [address] GFR/1.73 sq M.predicted among non-blacks MDRD (S/P/Bld) [Vol rate/Area] 105 mL/min/{1.73_m2} Normal >60 [facility] Comment on above: Result Comment: Non- GFR Calc Performed By: #### L 505.5000, L501.9100, L500.2500, L100.0100 #### [facility] [address] [place], [address] Glucose [Mass/Vol] 73 mg/dL Low 74-106 [facility] Comment on above: Performed By: #### L 505.5000, L501.9100, L500.2500, L100.0100 #### [facility] [address] [place], [address] Potassium [Moles/Vol] 3.7 mmol/L Normal 3.5-5.1 [facility] Comment on above: Performed By: #### L 505.5000, L501.9100, L500.2500, L100.0100 #### [facility] [address] [place], [address] Sodium [Moles/Vol] 127 mmol/L Low 136-145 [facility] Comment on above: Performed By: #### L 505.5000, L501.9100, L500.2500, L100.0100 #### [facility] [address] [place], [address] Urea nitrogen [Mass/Vol] 13 mg/dL Normal 7-18 [facility] Comment on above: Performed By: #### L 505.5000, L501.9100, L500.2500, L100.0100 #### [facility] [address] [place], [address] Bedside Glucoseon 11-10-2023 FINGERSTICK GLU 94 mg/dL Normal 74-106 [facility] Comment on above: Result Comment: RIP MACIEL OF PATIENT CARE PER NURSING PROTOCOL Performed By: #### L 501.080 #### [facility] [address] [place], [address] CBC W/Diff, Automatedon 10-16 IG% 0.900 Normal 0.0-0.9 [facility] Comment on above: Result Comment: IG% - Immature Granulocytes (promyelocytes, myelocytes and metamyelocytes) > 1% indicates that a LEFT SHIFT is Present. Performed By: #### L 505.5000, L501.9100, L500.2500, L100.0100 #### [facility] [address] [place], [address] MCHC (RBC) [Mass/Vol] 35.5 g/dL Normal 32-36 [facility] Comment on above: Performed By: #### L 505.5000, L501.9100, L500.2500, L100.0100 #### [facility] [address] [place] [place], [address] Nucleated RBC (Bld) [#/Vol] 0 10*3/uL Normal 0-5 [facility] Comment on above: Performed By: #### L 505.5000, L501.9100, L500.2500, L100.0100 #### [facility] [address] [place], [address] RDW SD 43.8 fl Normal 35.1-43.9 [facility] Comment on above: Performed By: #### L 505.5000, L501.9100, L500.2500, L100.0100 #### [facility] [address] [place], [address] Emergency Department Summary on 11-10-2023 Emergency Department Summary [facility] Medical Records Department [address] [place] [address] Emergency Department Summary 11/10/23 MR#: [id number] Acct: [id number] Name: DAYNE MEYER Rep #: [id number] : 1975 48 From: Jos Garrison DO PCP: KEVIN HAIRSTON Status:ADM IN Location: MS3 [id number] HPI History of Present Illness Chief Complaint: [...] Patient has never been to detox before. [facility] Medical History (Updated 11/10/23 @ 17:39 by [...] for alcoho (more content not included)... Normal [facility] H AND P Exam - [facility] 11-10-2023 H&P Exam - Hospitalist [facility] Medical Records Department [address] [place] [address] H P Exam - [place] [facility] 11/10/23 1813 MR#: [id number] Acct: [id number] Name: DAYNE MEYER Rep #: [id number] : 1975 48 From: Wandy Pittman MD PCP: KEVIN HAIRSTON Status:ADM IN [place] [facility] [place] [id number] HPI - General General Date of Admission: 11/10/23 Date of Service: 11/10/23 Chief Complaint: ETOH detox HPI Narrative DAYNE MEYER, is a 48 M with a history of tobacco use, hypertension, diabetes, tobacco use, degenerative disc disease, depression and anxiety and alcohol use who presented to [facility] ED 11/10/2023 at the urging of [...] vomiting. Reports primarily feeling anxious and depressed. [facility] Medical History (Updated 11/10/23 @ 19:01 by [...] 12.7, Pl (more content not included)... Normal [facility] Urine Drug Screen (VISTA)on 11-10-2023 AMPHETAMINES Negative Normal <1000 ng/mL [facility] Comment on above: Performed By: #### L 505.5000, L501.9100, L500.2500, L100.0100 #### [facility] [address] [place], [place], [address] BARBITIURATES Negative Normal < 200 ng/mL [facility] Comment on above: Performed By: #### L 505.5000, L501.9100, L500.2500, L100.0100 #### [facility] [address] [place], [address] BENZODIAZIPINE Negative Normal < 200 ng/mL [facility] Comment on above: Performed By: #### L 505.5000, L501.9100, L500.2500, L100.0100 #### [facility] [address] [place], [address] COCAINE Negative Normal < 300 ng/mL [facility] Comment on above: Performed By: #### L 505.5000, L501.9100, L500.2500, L100.0100 #### [facility] [address] [place], [address] ECSTACY Negative Normal < 500 ng/mL [facility] Comment on above: Performed By: #### L 505.5000, L501.9100, L500.2500, L100.0100 #### [facility] [address] [place], [address] METHADONE Negative Normal < 300 ng/mL [facility] Comment on above: Performed By: #### L 505.5000, L501.9100, L500.2500, L100.0100 #### [facility] [address] [place], [address] OPIATES Negative Normal < 300 ng/mL [facility] Comment on above: Performed By: #### L 505.5000, L501.9100, L500.2500, L100.0100 #### [facility] [address] [place], [address] PCP Negative Normal < 25 ng/mL [facility] Comment on above: Performed By: #### L 505.5000, L501.9100, L500.2500, L100.0100 #### [facility] [address] [place], [address] THC Negative Normal < 50 ng/mL [facility] Comment on above: Performed By: #### L 505.5000, L501.9100, L500.2500, L100.0100 #### [facility] [address] [place], [address] VISTA UDS PH 4 Normal [facility] Comment on above: Performed By: #### L 505.5000, L501.9100, L500.2500, L100.0100 #### [facility] [address] [place], [address] XR HIP 3-4 VIEWS BILATERALon 07-30-2023 XR [...] with indicators of femoroacetabular impingement Interpreted by: Janse Barclay MD Preliminary Report By: Janes Barclay MD Electronically signed By Janes Barclay MD Dictated Date: 07/30/2023 3:55:20 PM Prelim Date: 07/30/2023 3:57:16 PM Sign Date: 07/30/2023 3:57:16 PM Ordering Provider: YAMILETH Borges [facility] ([place]) .GFRon 07-29-2023 GFR 111 ml/min/1.73sqm Normal [facility] [place] Comment on above: Result Comment: GFR Population [...] By: #### G FR, A1C, BMP #### [address] [address] GFR Non- 91 ml/min/1.73sqm Normal [facility] ([place]) Comment on above: Result Comment: GFR Population [...] By: #### G FR, A1C, BMP #### [address] [address] A1Con 07-29-2023 HbA1c (Bld) [Mass fraction] 5.9 % Normal 4.3-6.4 [facility] ([place] Comment on above: Performed By: #### G FR, A1C, BMP #### [address] [address] BMPon 07-29-2023 BUN/Creatinine Ratio 12 ratio Normal 7-27 [facility] ([place]) Comment on above: Performed By: #### G FR, A1C, BMP #### [address] [address] Calcium [Mass/Vol] 8.9 mg/dL Normal 8.4-10.2 [facility] ([place]) Comment on above: Performed By: #### G FR, A1C, BMP #### [address] [address] Chloride [Moles/Vol] 96 mmol/L Low 98-107 [facility] ([place] Comment on above: Performed By: #### G FR, A1C, BMP #### [address] [address] CO2 [Moles/Vol] 27 mmol/L Normal 22-29 [facility] ([place] Comment on above: Performed By: #### G FR, A1C, BMP #### [address] [address] Creatinine [Mass/Vol] 0.89 mg/dL Normal 0.70-1.30 [facility] ([place] Comment on above: Performed By: #### G FR, A1C, BMP #### [address] [address] Electrolyte Balance 10.0 mEq/L Normal 4.0-15.0 [facility] ([place]) Comment on above: Performed By: #### G FR, A1C, BMP #### [address] [address] Glucose [Mass/Vol] 133 mg/dL High 70-105 [facility] ([place] Comment on above: Performed By: #### G FR, A1C, BMP #### [address] [address] Potassium [Moles/Vol] 4.7 mmol/L Normal 3.5-5.1 [facility] ([place] Comment on above: Performed By: #### G FR, A1C, BMP #### [address] [address] Sodium [Moles/Vol] 133 mmol/L Low 136-145 [facility] ([place] Comment on above: Performed By: #### G FR, A1C, BMP #### [address] [address] Urea nitrogen [Mass/Vol] 11 mg/dL Normal 7-18 [facility] ([place]) Comment on above: Performed By: #### G FR, A1C, BMP #### [address] [address] LABORATORYOrdered By: SYSTEM SYSTEM on 07-29-2023 Calcium [...] .GFRon 03-21-2023 GFR Non- 82 ml/min/1.73sqm Normal [facility] ([place]) Comment on above: Result Comment: GFR Population [...] By: #### L IPID, GFR, CMP #### [place] [address] GFR 99 ml/min/1.73sqm Normal [facility] ([place]) Comment on above: Result Comment: GFR Population [...] By: #### L IPID, GFR, CMP #### [address] [address] CMPon 03-21-2023 Albumin Level 3.6 G/dL Normal 3.5-5.0 [facility] ([place] Comment on above: Performed By: #### L IPID, GFR, CMP #### [address] [address] Albumin/Globulin [Mass ratio] 0.9 {ratio} Low 1.1-2.5 [facility] ([place] Comment on above: Performed By: #### L IPID, GFR, CMP #### [address] [address] ALP [Catalytic activity/Vol] 96 U/L Normal 40-135 [facility] ([place]) Comment on above: Performed By: #### L IPID, GFR, CMP #### [address] [address] ALT [Catalytic activity/Vol] 44 U/L Normal 16-63 [facility] ([place] Comment on above: Performed By: #### L IPID, GFR, CMP #### [address] [address] AST [Catalytic activity/Vol] 39 U/L Normal 10-40 [facility] ([place] Comment on above: Performed By: #### L IPID, GFR, CMP #### [address] [address] Bili Total 1.0 mg/dL Normal 0.2-1.0 [facility] ([place]) Comment on above: Result Comment: Use of this assay is not recommended for patients undergoing treatment with eltrombopag due to the potential for falsely elevated results. Performed By: #### L IPID, GFR, CMP #### [address] [address] BUN/Creatinine Ratio 15 ratio Normal 7-27 [facility] ([place] Comment on above: Performed By: #### L IPID, GFR, CMP #### [address] [address] Calcium [Mass/Vol] 9.7 mg/dL Normal 8.4-10.2 [facility] ([place] Comment on above: Performed By: #### L IPID, GFR, CMP #### [address] [address] Chloride [Moles/Vol] 95 mmol/L Low 98-107 [facility] ([place] Comment on above: Performed By: #### L IPID, GFR, CMP #### [address] [address] CO2 [Moles/Vol] 27 mmol/L Normal 22-29 [facility] ([place] Comment on above: Performed By: #### L IPID, GFR, CMP #### [address] [address] Creatinine [Mass/Vol] 0.98 mg/dL Normal 0.70-1.30 [facility] ([place] Comment on above: Performed By: #### L IPID, GFR, CMP #### [address] [address] Electrolyte Balance 13.0 mEq/L Normal 4.0-15.0 [facility] ([place]) Comment on above: Performed By: #### L IPID, GFR, CMP #### [address] [address] Globulin 4.2 G/dL Normal [facility] ([place] Comment on above: Performed By: #### L IPID, GFR, CMP #### [address] [address] Glucose [Mass/Vol] 227 mg/dL High 70-105 [facility] ([place]) Comment on above: Performed By: #### L IPID, GFR, CMP #### [address] [address] Potassium [Moles/Vol] 5.8 mmol/L High 3.5-5.1 [facility] ([place] Comment on above: Performed By: #### L IPID, GFR, CMP #### [place] [address] [place], [place] [address] Sodium [Moles/Vol] 135 mmol/L Low 136-145 [facility] ([place] Comment on above: Performed By: #### L IPID, GFR, CMP #### [place] [address] [place], [place] [address] Total Protein 7.8 G/dL Normal 6.4-8.2 [facility] ([place] Comment on above: Performed By: #### L IPID, GFR, CMP #### [place] [address] [place], [place] [address] Urea nitrogen [Mass/Vol] 15 mg/dL Normal 7-18 [facility] ([place] Comment on above: Performed By: #### L IPID, GFR, CMP #### [address] [address] LABORATORYOrdered By: SYSTEM SYSTEM on 03-21-2023 Albumin [...] 03-21-2023 Cholesterol [Mass/Vol] 187 mg/dL Normal 0-200 [facility] ([place]) Comment on above: Result Comment: Chol esterol Reference Interval: Less than 200 Desirable 200-239 Borderline high risk 240 and above High risk Performed By: #### L IPID, GFR, CMP #### [address] [place], [place] [address] Cholesterol in HDL [Mass/Vol] 47 mg/dL Normal 40-60 [facility] ([place] Comment on above: Performed By: #### L IPID, GFR, CMP #### [address] [place], [place] [address] Cholesterol in LDL [Mass/Vol] 102 mg/dL Normal 0-130 [facility] ([place] Comment on above: Performed By: #### L IPID, GFR, CMP #### [address] [place], [place] [address] Triglyceride [Mass/Vol] 188 mg/dL High 0-150 [facility] ([place] Comment on above: Result Comment: Trig lyceride Reference Interval: Less than 150 Normal 150-199 Borderline high risk 200-499 High risk 500 or higher Very high risk Performed By: #### L IPID, GFR, CMP #### [address] [place], [place] [address] MALBRon 03-21-2023 U Creatinine 85.1 mg/dL Normal 39.0-259.0 [facility] ([place]) Comment on above: Performed By: #### M ALBR #### [address] [address] U Microalb 3598 mcg/dL Normal [facility] ([place] Comment on above: Performed By: #### M ALBR #### [address] [address] U Ratio Alb/Cre 42 mcg/mg High 0-30 [facility] ([place] Comment on above: Performed By: #### M ALBR #### [address] [address] LABORATORYOrdered By: SYSTEM SYSTEM on 10-11-2022 Basophil, [...] their appointment, please contact the office immediately. [address] 01-29-2022 36 VOICEMAIL IS FULL [address] 01-17-2022 36 I cannot refill thes e meds without a every 6-month exam and lab work. Patient overdue for checkup [place] [address] I cannot refill this medicine without a renal function exam and ch up at least every 6 months. Needs an appointment. [place] [address] Rx loaded [place] [address] Medication name: metFORMIN (GLUCOPHAGE) 500 MG tablet [...] prior to picking up the medication: Yes [facility] CNCDen 07-10-2021 CNCO Letter Text Normal [facility] Radha 03-01-2021 CNPN Telephone (GSTNOR) DAYNE MEYER ([id number]) 1975 M Date Time Provider Department 03/01/21 SHARIFA PICKETT During your visit today, we recorded the following information about you: Alia Leyva [facility] 03/01/2021 9:56 AM Signed Please enter screening [...] If you do not have a responsible horse and wagon driver (family member or friend) with you to take you home, your exam cannot be done with sedation and will be cancelled. Please bring a list of all of your current medications, including any Vebv-pba-Ftndkiu medications with you. Medications If you take [...] Prep KitDisp (more content not included)... Normal [facility] CR Chest PA/LATon 05-29-2020 CR Chest PA/LAT Patient Name: DAYNE MEYER Diagnostic Radiology ACCESSION EXAM DATE/TIME PROCEDURE ORDERING PROVIDER [id number] 05/29/2020 11:10 EDT CR Chest PA and LAT DO SIMMONS EUGENE F. CPT code 06091 Reason For Exam (CR Chest PA and [...] Transcribed Date and Time: 05/29/2020 1:12 Normal [facility] CR Hip w/ Pelvis 2 or 3 View s Lefton 05-29-2020 CR Hip w/ Pelvis 2 or 3 Views Left Patient Name: DAYNE MEYER Diagnostic Radiology ACCESSION EXAM DATE/TIME PROCEDURE ORDERING PROVIDER [id number] 05/29/2020 11:10 EDT CR Hip w/ Pelvis 2 or 3 DO SIMMONS EUGENE F. Views Left n CPT code 00150 Reason For Exam (CR Hip w/ Pelvis [...] ALFRED Transcribed Date and Time: 05/29/2020 1:07 [facility] CR Spine Lumbosacral 4+ View son 05-29-2020 CR Spine Lumbosacral 4+ Views Patient Name: DAYNE MEYER Diagnostic Radiology ACCESSION EXAM DATE/TIME PROCEDURE ORDERING PROVIDER [id number] 05/29/2020 11:10 EDT CR Spine Lumbosacral 4+ DO SIMMONS EUGENE F. Views CPT code 07323 Reason For Exam (CR Spine Lumbosacral 4+ [...] Transcribed Date and Time: 05/29/2020 1:06 Normal [facility] XR CHEST (2 VW)on 05-29-2020 Patient Name: DAYNE MEYER Diagnostic Radiology ACCESSION EXAM DATE/TIME PROCEDURE ORDERING PROVIDER [id number] 05/29/2020 11:10 EDT CR Chest PA & LAT DO SIMMONS EUGENE F. CPT code 17189 Reason For Exam (CR Chest PA & [...] ALFRED Transcribed Date and Time: 05/29/2020 1:12 [facility] Work Phone: Matt, [facility] Incoming Radiology Results From [facility] - 05/29/2020 1:12 PM EDT Patient Name: DAYNE MEYER Diagnostic Radiology ACCESSION EXAM DATE/TIME PROCEDURE ORDERING PROVIDER [id number] 05/29/2020 11:10 EDT CR Chest PA & LAT DO SIMMONS EUGENE F. CPT code 24551 Reason For Exam (CR Chest PA & [...] ALFRED Transcribed Date and Time: 05/29/2020 1:12 [employer] Work Phone: XR HIP LEFT (2-3 VIEWS)on Patient Name: DAYNE MEYER Diagnostic Radiology ACCESSION EXAM DATE/TIME PROCEDURE ORDERING PROVIDER [id number] 05/29/2020 11:10 EDT CR Hip w/ Pelvis 2 or 3 DO SIMMONS EUGENE Lei. Views Left n CPT code 01801 Reason For Exam (CR Hip w/ Pelvis [...] ALFRED Transcribed Date and Time: 05/29/2020 1:07 [employer] Work Phone: Matt, [facility] Incoming Radiology Results From [facility] - 05/29/2020 1:07 PM EDT Patient Name: DAYNE MEYER Diagnostic Radiology ACCESSION EXAM DATE/TIME PROCEDURE ORDERING PROVIDER [id number] 05/29/2020 11:10 EDT CR Hip w/ Pelvis 2 or 3 DO SIMMONS EUGENE F. Views Left n CPT code 99895 Reason For Exam (CR Hip w/ Pelvis [...] ALFRED Transcribed Date and Time: 05/29/2020 1:07 [facility] Work Phone: XR LUMBAR SPINE (MIN 4 VIEWS )on 05-29-2020 Patient Name: DAYNE MEYER Diagnostic Radiology ACCESSION EXAM DATE/TIME PROCEDURE ORDERING PROVIDER [id number] 05/29/2020 11:10 EDT CR Spine Lumbosacral 4+ DO SIMMONS EUGENE F. Views CPT code 15965 Reason For Exam (CR Spine Lumbosacral 4+ [...] Phone: Matt, [facility] Incoming Radiology Results From [facility] - 05/29/2020 1:06 PM EDT Patient Name: DAYNE MEYER Diagnostic Radiology ACCESSION EXAM DATE/TIME PROCEDURE ORDERING PROVIDER [id number] 05/29/2020 11:10 EDT CR Spine Lumbosacral 4+ DO SIMMONS EUGENE F. Views CPT code 75378 Reason For Exam (CR Spine Lumbosacral 4+ [...] 185.4 cm Marcel Hinojosa MD Work Phone: [facility] 05-28-2024 09:33-0400 Body mass index (BMI) [Ratio] 37.6 kg/m2 Marcel Hinojosa MD Work Phone: [facility] 05-28-2024 09:33-0400 Body weight 129.28 kg Marcel Hinojosa MD Work Phone: [facility] 05-28-2024 09:30-0400 Body temperature 97.5 [degF] Marcel Hinojosa MD Work Phone: [facility] 05-28-2024 09:30-0400 Diastolic blood pressure 106 mm[Hg] Marcel Hinojosa MD Work Phone: [facility] 05-28-2024 09:30-0400 Heart rate 98 /min Marcel Hinojosa MD Work Phone: [facility] 05-28-2024 09:30-0400 Respiratory rate 17 /min Marcel Hinojosa MD Work Phone: [facility] 05-28-2024 09:30-0400 SaO2% (BldA) [Mass fraction] 98 % Marcel Hinojosa MD Work Phone: [facility] 05-28-2024 09:30-0400 Systolic blood pressure 177 mm[Hg] Marcel Hinojosa MD Work Phone: [facility] 05-27-2024 12:20-0400 Body temperature 97.5 [degF] No Physician [facility] 05-27-2024 12:20-0400 Diastolic blood pressure 99 mm[Hg] No Physician [facility] 05-27-2024 12:20-0400 Heart rate 95 /min No Physician [facility] 05-27-2024 12:20-0400 Respiratory rate 18 /min No Physician [facility] 05-27-2024 12:20-0400 SaO2% (BldA) [Mass fraction] 99 % No Physician [facility] 05-27-2024 12:20-0400 Systolic blood pressure 153 mm[Hg] No Physician [facility] 05-27-2024 12:17-0400 Body height 185.4 cm No Physician [facility] 05-27-2024 12:17-0400 Body mass index (BMI) [Ratio] 37.6 kg/m2 No Physician [facility] 05-27-2024 12:17-0400 Body weight 129.28 kg No Physician [facility] 04-26-2024 10:30-0500 Body temperature 98.4 [degF] Brad Ebbing PA-C Work Phone: [facility] 04-26-2024 10:30-0500 Diastolic blood pressure 79 mm[Hg] Brad Ebbing PA-C Work Phone: [facility] 04-26-2024 10:30-0500 Heart rate 73 /min Brad Ebbing PA-C Work Phone: [facility] 04-26-2024 10:30-0500 SaO2% (BldA) [Mass fraction] 96 % Brad Ebbing PA-C Work Phone: [facility] 04-26-2024 10:30-0500 Systolic blood pressure 128 mm[Hg] Brad Ebbing PA-C Work Phone: [facility] 10-11-2022 12:24-0400 Diastolic Blood Pressure Non-Invasive [address] NISHI MIDDLETON MD [facility] 10-11-2022 12:24-0400 Heart rate 89 /min DR NISHI MIDDLETON MD [facility] 10-11-2022 12:24-0400 Respiratory rate 16 /min DR NISHI MIDDLETON MD [facility] 10-11-2022 12:24-0400 Systolic Blood Pressure Non-Invasive [address] NISHI MIDDLETON MD [facility] 10-11-2022 11:49-0400 Diastolic Blood Pressure Non-Invasive [address] NISHI MIDDLETON MD [facility] 10-11-2022 11:49-0400 Heart rate 100 /min DR NISHI MIDDLETON MD [facility] 10-11-2022 11:49-0400 Respiratory rate 20 /min DR NISHI MIDDLETON MD [facility] 10-11-2022 11:49-0400 Systolic Blood Pressure Non-Invasive [address] NISHI MIDDLETON MD [facility] 10-11-2022 11:38-0400 Heart rate 142 /min DR NISHI MIDDLETON MD [facility] 10-11-2022 11:20-0400 Body temperature 98.6 [degF] DR NISHI MIDDLETON MD [facility] 10-11-2022 11:20-0400 Body weight 140.[address] NISHI MIDDLETON MD [facility] 10-11-2022 11:20-0400 Diastolic Blood Pressure Non-Invasive [address] NISHI MIDDLETON MD [facility] 10-11-2022 11:20-0400 Heart rate 146 /min DR NISHI MIDDLETON MD [facility] 10-11-2022 11:20-0400 Respiratory rate 20 /min DR NISHI MIDDLETON MD [facility] 10-11-2022 11:20-0400 Systolic Blood Pressure Non-Invasive [address] NISHI MIDDLETON MD [facility] Encounters Encounter Date Encounter Type Care Provider Facility Start: 09-06-2024 End: 09-06-2024 Emergency department patient visit No Primary Care Physician Facility:[facility] Start: 08-04-2024 ambulatory No Primary Car e Physician Facility:[facility] Start: 08-04-2024 End: 08-05-2024 Evaluation and management of inpatient No Primary Care Physician Facility:[facility] Start: 05-28-2024 End: 05-28-2024 Emergency department patient visit Marcel Hinojosa MD Work Phone: [facility] Emergency Room Comment on above: Dental abscess (Prim moe Dx) Start: 05-28-2024 End: 05-28-2024 Evaluation and management of inpatient Marcel Hinojosa MD Work Phone: [facility] Start: 05-27-2024 End: 05-27-2024 Emergency department patient visit NO PCP PHYSICIAN [facility] Comment on above: Pain, dental (Primar y Dx) Start: 05-27-2024 End: 05-27-2024 Evaluation and management of inpatient No Physician [facility] Start: 04-26-2024 End: 04-26-2024 Office outpatient new 30 minutes Brad Heredia PA-C Work Phone: [facility] Comment on above: Open wound of left g reat toe, subsequent encounter (Primary Dx) Start: 04-26-2024 End: 04-26-2024 ambulatory BRAD HEREDIA [facility] Start: 04-01-2024 End: 04-01-2024 Emergency department patient visit R[facility] Start: 03-26-2024 ambulatory Kristine L White Facility :[facility] Start: 03-26-2024 End: 03-29-2024 Evaluation and management of inpatient Kristine L White Facility:[facility] Start: 11-12-2023 ambulatory YAMILETH MAST PIN [employer] Fa cility:B Start: 11-10-2023 End: 11-13-2023 Evaluation and management of inpatient Wandy Pittman Facility:[facility] Start: 11-10-2023 ambulatory Wandy Pittman Facility:[facility] Start: 08-07-2023 ambulatory YAMILETH MAST PIN [employer] Fa cility:[facility] Start: 07-29-2023 End: 07-29-2023 ambulatory YAMILETH MAST PIN OR [employer] Facility:[facility] Start: 07-29-2023 End: 07-29-2023 Patient encounter procedure YAMILETH MAST PIN OR [employer] [facility] Start: 03-21-2023 End: 03-25-2023 ambulatory YAMILETH MAST PIN OR [employer] Facility:[facility] Start: 03-21-2023 End: 03-25-2023 Outreach Lab YAMILETH MAST PIN OR [employer] [facility] Start: 01-13-2023 End: 01-13-2023 ambulatory GURWINDER FARRIS MD Facility:[facility] Start: 01-13-2023 End: 01-13-2023 Patient encounter procedure GURWINDER FARRIS MD [facility] Start: 12-09-2022 ambulatory YAMILETH MAST PIN OR [employer] Fa cility:[facility] Start: 10-11-2022 End: 10-11-2022 Emergency department patient visit DR NISHI MIDDLETON MD [facility] Start: 09-24-2022 End: 09-28-2022 Outreach Lab YAMILETH MAST PIN OR [employer] [facility] Start: 08-20-2021 End: 08-20-2021 Subsequent hospital visit by physician Xavier Simmons DO Work Phone: [facility] MRI Comment on above: Radiculopathy, lumba r region; Lumbar radiculopathy, chronic Start: 05-29-2020 End: 05-29-2020 Subsequent hospital visit by physician Xavier Simmons Work Phone: [facility] Radiology Comment on above: Smoker; Left groin [...] Decompression of med beau nerve YAMILETH MAST PIN [employer] 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) YAMILETH MAST PIN [employer] Comment on above: surgery Plan of Treatment Date Care Activity Detail Author Start: 11-14-2028 Tetanus vaccination Tetanus: Every 10yrs [facility] Start: 04-01-2025 Diabetes: Annual GFR (Glomerular Filtration Rate) Diabetes: Annual GFR (Glomerular Filtration Rate) [facility] Start: 04-01-2025 Hypertension/CHF/CAD Annual BMP Blood Test Hypertension/CHF/CAD Annual BMP Blood Test [facility] Start: 04-01-2025 Urine screening for protein eGFR Diabetes [facility] Start: 05-27-2024 Adolescent depression screening assessment Depression Screening [facility] Start: 05-27-2024 Diabetes: Annual Urine Albumin-Creatinine Ratio (uACR) Diabetes: Annual Urine Albumin-Creatinine Ratio (uACR) [facility] Start: 05-27-2024 Hemoglobin A1c measurement Diabetes: Blood Sugar Control Test (HGBA1C) [facility] Start: 05-27-2024 HIV screening HIV Screening [facility] Start: 05-27-2024 Lipid panel Cholesterol Screening (Lipid Panel) [facility] Start: 05-27-2024 Screening for malignant neoplasm of colon Colorectal Cancer Screening: Colonoscopy [facility] Start: 05-27-2024 Social Influencers of Health Screening Social Influencers of Health Screening [facility] Start: 11-16-2023 COVID-19 Vaccine ( season) COVID-19 Vaccine ( season) [facility] Start: 11-16-2023 Influenza vaccination Influenza Vaccine (#1) [facility] Start: 04-17-2023 DTaP,Tdap,and Td Vaccines (2 - Td or Tdap) DTaP,Tdap,and Td Vaccines (2 - Td or Tdap) [facility] Start: 07-03-2022 COVID-19 Vaccine (1) COVID-19 Vaccine (1) [facility] Comment on above: Postponed from 09/18/1979 (Patient Refus ed) Start: 06-27-2022 Depression Monitoring Depression Monitoring [facility] Start: 02-05-2022 Influenza vaccination Flu vaccine (Season Ended) [facility] Comment on above: Postponed from 11/15/2021 (Patient Refus ed) Start: 12-01-2021 Diabetic foot examination Diabetic foot exam [facility] Start: 09-26-2021 End: 09-26-2021 Patient encounter procedure 09/26/2021 Office Visit Family Medicine Xavier Simmons DO [address], [place] [id number] [facility] Start: 05-31-2021 Hemoglobin A1c measurement A1C [facility] Start: 05-29-2021 Diabetic microalbuminuria test Diabetic microalbuminuria test [facility] Work Phone: Start: 05-29-2021 Pneumococcal 0-64 years Vaccine (2 - PCV) Pneumococcal 0-64 years Vaccine (2 - PCV) [facility] Start: 05-29-2021 Pneumococcal Vaccine: Ped or At-Risk (2 of 2 - PCV) Pneumococcal Vaccine: Ped or At-Risk (2 of 2 - PCV) [facility] Start: 05-29-2021 Pneumococcal Vaccine: Pediatrics (0 to 5 Years) and At-Risk Patients (6 to 64 Years) (2 of 2 - PCV) Pneumococcal Vaccine: Pediatrics (0 to 5 Years) and At-Risk Patients (6 to 64 Years) (2 of 2 - PCV) [facility] Start: 05-29-2021 Urine screening for protein Diabetic microalbuminuria test [facility] Start: 03-29-2021 Creatinine measurement Creatinine monitoring [facility] Work Phone: Start: 03-29-2021 Potassium monitoring Potassium monitoring [facility] Work Phone: Start: 03-02-2021 Hemoglobin A1c measurement A1C test (Diabetic or Prediabetic) [facility] Start: 08-21-2020 End: 08-21-2020 Office Visit 08/21/2020 Office Visit Family Medicine Xavier Simmons DO [address] [place] [id number] [facility] Start: 06-27-2020 HbA1c (Bld) [Mass fraction] A1C test (Diabetic or Prediabetic) [facility] Work Phone: Start: 11-16-2019 Influenza vaccination Flu vaccine (#1) [facility] Work Phone: Start: 09-18-2019 Screening for malignant neoplasm of colon [facility] Start: 04-18-2013 DTaP/Tdap/Td vaccine (1 - Tdap) DTaP/Tdap/Td vaccine (1 - Tdap) [facility] Start: 1993 DTaP/Tdap/Td vaccine (1 - Tdap) DTaP/Tdap/Td vaccine (1 - Tdap) [facility] Work Phone: Start: 1993 Hepatitis A Vaccines (1 of 2 - Risk 2-dose series) Hepatitis A Vaccines (1 of 2 - Risk 2-dose series) [facility] Start: 1993 Hepatitis B vaccine (1 of 3 - Risk 3-dose series) Hepatitis B vaccine (1 of 3 - Risk 3-dose series) [facility] Start: 1993 Hepatitis B Vaccines (1 of 3 - 19+ 3-dose series) Hepatitis B Vaccines (1 of 3 - 19+ 3-dose series) [facility] Start: 1992 Diabetic retinal exam Diabetic retinal exam [facility] Start: 1992 Hepatitis C screening Hepatitis C Screening [facility] Start: 1990 COVID-19 Vaccine (1) COVID-19 Vaccine (1) [facility] Work Phone: Start: 1989 HIV screening [facility] Start: 1986 Depression screening using PHQ-9 (Patient Health Questionnaire 9) score Depression Screening/Follow-Up (PHQ-2/9) [facility] Start: 1984 Diabetes: Annual Retina Eye Exam Diabetes: Annual Retina Eye Exam [facility] Start: 1984 Diabetic foot examination [facility] Start: 1984 Diabetic retinal exam Diabetic retinal exam [facility] Work Phone: Start: 1984 Glaucoma screening Diabetic Eye Exam [facility] Start: [address] [facility] Start: 1984 Urine screening for protein Urine (micro)albumin/creatinine ratio - Diabetes [facility] Start: 1977 History and physical examination, annual for health maintenance Wellness Visit [facility] Start: 1974 Hepatitis C screening Hepatitis C screen [employer] Work Phone: Start: 1974 Prostate specific antigen measurement PSA Level [facility] Start: 1974 Screening for malignant neoplasm of colon [facility] End: 05-29-2020 XR HIP 2-3 VW W PELVIS LEFT XR HIP 2-3 VW W PELVIS LEFT Imaging Routine Left groin pain 1 Occurrences starting 05/29/2020 until 05/29/2020 [employer] Work Phone: Comment on above: 1 Occurrences starting 05/29/2020 until 05/29/2020 Immunizations Immunization Date Immunization Notes Care Provider Divina salvador 05-29-2020 pneumococcal polysaccharide vaccine, 23 valent Xavier Simmons [employer] Work Phone: Comment on above: Result Comment: 2022: VIS DATE: 01/13/2019 11-14-2018 tetanus toxoid, redu joey diphtheria toxoid, and acellular pertussis vaccine, adsorbed YAMILETH MAST PIN [employer] [facility] Payers Date Payer Category Payer Medicaid (Managed Care) 1.2. [id number] 5 2023 Self-pay 2021 Private Health Insurance [id number] 2020 Private Health Insurance [id number] 1974 Unknown [id number] 2.16.8 40.1.129082.3.579.2.627 1974 Unknown [id number] 2.16.8 40.1.442765.3.579.2.627 1974 Unknown [id number] 2.16.8 40.1.156130.3.579.2.627 1974 Unknown [id number] 2.16.8 40.1.064620.3.579.2.627 1974 Unknown [id number] 2.16.8 40.1.404890.3.579.2.627 1974 Unknown [id number] 2.16.8 40.1.058436.3.579.2.627 1974 Unknown [id number] 2.16. 840.1.805992.3.579.2.902 1974 Unknown [id number] 2.16. 840.1.698847.3.579.2.900 1974 Unknown [id number] 2.16. 840.1.019278.3.579.2.1143 1974 Unknown [id number] 2.16. 840.1.232951.3.579.2.1143 Unknown [id number] 2.16.8 40.1.523820.3.579.2.462 Unknown [id number] 2.16.8 40.1.213406.3.579.2.462 Unknown [id number] 2.16.8 40.1.154407.3.579.2.462 Unknown [id number] 2.16.8 40.1.041084.3.579.2.462 Unknown [id number] 2.16.8 40.1.942119.3.579.2.462 Unknown [id number] 2.16.8 40.1.412137.3.579.2.462 Unknown [id number] 2.16.8 40.1.058937.3.579.2.462 Unknown [id number] 2.16.8 40.1.099458.3.579.2.462 Unknown [id number] 2.16.8 40.1.142194.3.579.2.462 Unknown [id number] 2.16.8 40.1.617099.3.579.2.462 Unknown [id number] 2.16.8 40.1.478761.3.579.2.462 Unknown [id number] 2.16.8 40.1.058173.3.579.2.462 Unknown [id number] 2.16.8 40.1.537145.3.579.2.462 Unknown [id number] 2.16.8 40.1.758188.3.579.2.462 Unknown [id number] 2.16.8 40.1.988582.3.579.2.462 Social History Date Type Detail Facility Start: 05-29-2020 End: 05-27-2024 Tobacco smoking status HIIS Current every day smoker [employer] Work Phone: Start: 03-26-1989 History of tobacco use Cigarette Smo ker [employer] Work Phone: Start: 05-29-2020 End: 04-26-2024 Cigarettes smoked current (pack per day) - Reported [employer] Work Phone: Start: 05-29-2020 End: 05-27-2024 Tobacco use and exposure Never used [employer] Phone: Start: 05-29-2020 End: 06-27-2021 Alcohol intake Current drinker of alcohol (finding) [employer] Phone: Start: 03-29-2020 End: 06-27-2021 History SDOH Alcohol Frequency 5 [employer] Phone: Start: 03-29-2020 History SDOH Social Connections Phone 4 [employer] Phone: Start: 03-29-2020 History SDOH Social Connections Get Together 2 [employer] Phone: Start: 03-29-2020 History SDOH Social Connections Orthodoxy 3 [employer] Phone: Start: 03-29-2020 End: 06-27-2021 History SDOH Social Connections Meetings 1 [employer] Phone: Start: 03-29-2020 History SDOH Physica l Activity DPW 0 [employer] Work Phone: Start: 1975 Sex Assigned At Not on file S [facility] Work Phone: Start: 11-16-2018 End: 07-29-2023 Tobacco smoking status Heavy tobacco smoker (finding) [facility] Sex Assigned At Sex [facility] Start: 04-26-2024 End: 05-28-2024 Alcoholic beverage intake Ex-drinker (finding) [facility] Start: 04-26-2024 Tobacco use panel [facility] Start: 05-27-2024 Sex Male (finding) [facility] Functional Status Date Assessment Result Facility 10-11-2022 Functional Status Standard Safet y ID band on, Call device within reach, Bed in low position, Wheels locked, Upper/Half-Length side-rails up, Bedside Cart Locked, Safety level maintained [facility] Mental Status Date Assessment Result Facility 10-11-2022 Mental Status Orientation Oriented x 4 [facility] Clinical Notes 10-11-2022 to 08-06-2024 Sanjay Shah LPN - 05/28/2024 9:50 AM Candace Hinojosa MD - 05/28/2024 9:27 AM EDTDischarge InstructionsSanjay Shah MORGUE TECHNICIAN - 05/27/2024 1:30 PM Brad Pizano PA-C - 04/26/2024 11:36 AM EST Note Date & Type Note Facility 08-06-2024 Note [facility] Medical Records Department [address] [place] [address] Discharge Summary 08/06/24 1601 MR#: [id number] Acct: [id number] Name: DAYNE MEYER Rep #: [id number] : 1975 48 From: Ronnie Witt DO PCP: Care Physician,No Primary Status:DIS IN [place] [facility] [id number] Providers Date of Admission: 08/04/24 Date of Discharge: 08/05/24 Primary Care Physician: No Primary Care Phys Reason For Visit: ACUTE ETOH INTOXICATION IN THE SETTING OF Diagnosis Discharge Diagnosis (1) Alcohol abuse: Status: Acute Code(s): F10.10 - Alcohol abuse, uncomplicated (2) Desire for detoxification: Status: Acute Plan 1. Acute alcohol detox-continue with present medications, I talked with addiction marriage and family social worker about perhaps finding a place [...] was seen in the emergency room at [facility] requesting services for alcohol detox. Patient was admitted to [place] [address] and orders were entered using the alcohol detox order set, he was seen in consultation by addiction marriage and family social worker. Plans were made for the [...] 40 mg Rosuv (more content not included)... [facility] 05-28-2024 History of Present illness Narrative STEPH BROWN reviewed and discussed plan of care with VICKY GARZA. Sanjay Shah LPN 05/28/24 6079 Images from the original note were not [...] Past Medical History: Diagnosis Date Diabetes mellitus ([facility]/HCC) Hypertension History reviewed. No pertinent surgical [...] (two) times a day for 10 days. psyjxjhrwibjinr-orzaxbwk-yfnfzvhv l-asttqyryqyq-ecwhijxzg (MAGIC MOUTHWASH) 71-493-115-40-200 mg/30 mL liquid suspension Take 10 mL [...] of dentistry follow-up. He is not from [place] and plans felt his PCP was considering moving here so PCP information was provided ED Course as of 05/28/24 1036 FriMay 28, 2024 0950 Reviewed external record went to [facility] 04/26/2024 for a wound check [AH] ED Course User Index [AH] Marcel Hinojosa MD Clinical Impressions as of 05/28/24 1036 Dental abscess Impression Dental abscess Right-sided preorbital cellulitis Marcel Hinojosa MD 05/28/24 1038 documented in this encounter [facility] 05-27-2024 Hospital Discharge instructions Rosi Mantilla NP - 05/27/2024 1:59 PM EDT Thank you for your visit. I have provided prescriptions for antibiotics, mouthwash, and Magic mouthwash. Continue to use OTC Tylenol as directed. I encourage you to go to [facility] as soon as possible for follow-up. They take walk-ins until 3 PM Friday through Friday. Return to the ER for any new or worsening symptoms. documented in this encounter [facility] 05-27-2024 History of Present illness Narrative STEPH BROWN reviewed and discussed plan of care with VICKY DE LA CRUZ. Sanjay Shah LPN 05/27/24 1330 documented in this encounter [facility] 04-26-2024 Note Patient Name: James Meyer Date of Service: 04/26/2024 MR #: [id number] : 1975 Assessment & Plan: Open wound of left great toe -Improving -Continue daily dry dressing changes with warm soapy soaks -Completed antibiotics. No further need for antibiotics at this time -Follow up with PCP (Yamileth Cid, SHELDON [facility] [address] [place] [address]) in 1-2 weeks Reason for Visit: Follow up for wound check History of Present Illness: Dayne Meyer is a 48 y.o. male referred from [facility] ED on 04/01/24 for wound check. Patient stubbed his toe on a door and a blood blister formed. It became an open wound which brought him to the ED. He was started on antibiotics. Since his ED visit, patient has been taking care on his left great toe. He has been living in a facility in the [facility]. The staff has been changing his dressing [...] Resource Strain: Low Risk (06/27/2021) Received from [facility] Overall Financial Resource Strain (CARDIA) Difficulty of Paying Living Expenses: Not hard at all Food Insecurity: No Food Insecurity (06/27/2021) Received from [facility] Hunger Vital Sign Worried About Running Out of Food in the Last Year: Never true Ran Out of Food in the Last Year: Never true Transportation Needs: No Transportation Needs (03/29/2020) Received from [facility] PRAPARE - Transportation Lack of Transportation (Medical): No Lack of Transportation (Non-Medical): No Physical Activity: Inactive (03/29/2020) Received from [facility] Exercise Vital Sign Days of Exercise per Week: 0 days Minutes of Exercise per Session: 0 min Stress: Stress Concern Present (03/29/2020) Received from [facility] [employer] [place] - Occupational Stress Questionnaire Feeling of Stress : Very much Social Connections: Moderately Isolated (03/29/2020) Received from [facility] Social Connection and Isolation Panel [NHANES] Frequency of Communication with Friends and Family: Three times a week Frequency of Social Gatherings with Friends and Family: Once a week Attends Episcopalian Services: More than 4 times per year [...] 96% Physical Exam (more content not included)... [facility] 04-26-2024 History of Present illness Narrative Images from the original note were not included. Patient Name: Dayne Meyer Date of Service: 04/26/2024 MR #: [id number] : 1975 Assessment & Plan: Open wound of left great toe -Improving -Continue daily dry dressing changes with warm soapy soaks -Completed antibiotics. No further need for antibiotics at this time -Follow up with PCP (Yamileth Cid CNP [facility] [address] [place] [phone]) in 1-2 weeks Reason for Visit: Follow up for wound check History of Present Illness: Dayne Meyer is a 48 y.o. male referred from [facility] ED on 04/01/24 for wound check. Patient stubbed his toe on a door and a blood blister formed. It became an open wound which brought him to the ED. He was started on antibiotics. Since his ED visit, patient has been taking care on his left great toe. He has been living in a facility in the [facility]. The staff has been changing his dressing [...] Resource Strain: Low Risk (06/27/2021) Received from [facility] Overall Financial Resource Strain (CARDIA) Difficulty of Paying Living Expenses: Not hard at all Food Insecurity: No Food Insecurity (06/27/2021) Received from [facility] Hunger Vital Sign Worried About Running Out of Food in the Last Year: Never true Ran Out of Food in the Last Year: Never true Transportation Needs: No Transportation Needs (03/29/2020) Received from [facility] PRAPARE - Transportation Lack of Transportation (Medical): No Lack of Transportation (Non-Medical): No Physical Activity: Inactive (03/29/2020) Received from [facility] Exercise Vital Sign Days of Exercise per Week: 0 days Minutes of Exercise per Session: 0 min Stress: Stress Concern Present (03/29/2020) Received from [facility] [employer] [place] [employer] - Occupational Stress Questionnaire Feeling of Stress : Very much Social Connections: Moderately Isolated (03/29/2020) Received from [facility] Social Connection and Isolation Panel [NHANES] Frequency of Communication with Friends and Family: Three times a week Frequency of Social Gatherings with Friends and Family: Once a week Attends Episcopalian Services: More than 4 times per year [...] dry and healing documented in this encounter [facility] 04-26-2024 Evaluation + Plan note Associated Problem(s): Open wound of left great toe -Improving -Continue daily dry dressing changes with warm soapy soaks -Completed antibiotics. No further need for antibiotics at this time -Follow up with PCP (Yamileth Cid, SHELDON [facility] [address] [place] [address]) in 1-2 weeks [facility] 04-26-2024 Miscellaneous Notes Associated Problem(s): Open wound of left great toe -Improving -Continue daily dry dressing changes with warm soapy soaks -Completed antibiotics. No further need for antibiotics at this time -Follow up with PCP (Yamileth Cid, SHELDON [facility] [address] [place] [address]) in 1-2 weeks documented in this encounter [facility] 04-26-2024 Instructions Brad Heredia PA-C - 04/26/2024 11:29 AM EST Wound Mcfp Instructions: -Keep wound clean, dry, and covered [...] have chest pain. documented in this encounter [facility] 03-29-2024 Note [facility] Medical Records Department [address] [place] [address] Discharge Summary 03/29/24 0832 MR#: [id number] Acct: [id number] Name: DAYNE MEYER Rep #: [id number] : 1975 48 From: Wandy Pittman MD PCP: KEVIN HAIRSTON Status:[facility]M [id number] Date of Admission: 03[facility]26[facility]24 Date of [...] HCF Charges/Coding Visit Charges Inpatient E M: 77629 Disch Hosp (more content not included)... [facility] 11-13-2023 Note [facility] Medical Records Department [address] [place] [address] Discharge Summary 11/13/23 1301 MR#: [id number] Acct: [id number] Name: DAYNE MEYER Rep #: [id number] : 1975 48 From: Ronnie Witt DO PCP: KEVIN HAIRSTON Status:DIS IN [place] [facility] [place] Providers Date of Admission: 11/10/23 Date of [...] was seen in the emergency room at [facility] requesting services for alcohol detox. Patient's ethyl alcohol level was 183 and his tox screen was negative. Patient was admitted to [place] [address] using the alcohol detox order set, he was seen in consultation by addiction marriage and family social worker and arrangements were made for [...] to 2.5/40 mg (more content not included)... [facility] 10-11-2022 Hospital Discharge instructions Patient Education [...] seeing Extreme drowsiness, confusion, dizziness, or fainting 0731-[address]2 [employer] [place] [address], [place] [address]. All rights reserved. This information is not intended as a substitute for professional medical care. Always follow your healthcare professional's instructions. Follow Up Care 10/11/2022 11:21:12 With:YAMILETH CID Address: [address] [place] [address]- [phone] When:2-4 days With:MARCIA PANDEY Address: [address] [place] [address] [address] [phone] When:2-4 days [facility] 10-11-2022 Emergency department Discharge summary Discharge Instructions Thank you for allowing [facility] to assist you with your healthcare needs. [...] YAMILETH CID When Within 2-4 days Where: [address] [place] [phone] Follow Up with MARCIA PANDEY When Within 2-4 days Where: [address] [place] [phone]- [phone] Allergies NKA Medications Please ask your primary [...] seeing Extreme drowsiness, confusion, dizziness, or fainting 2682-4912 [employer]. [address] [place] [address], [place] [address]. All rights reserved. This information is not intended as a substitute for professional medical care. Always follow your healthcare professional's instructions. Additional Information VACCINATE! IT SAVES LIVES! Members of the community who have not yet received the COVID-19 vaccine and would like to receive it can visit one of [facility] vaccine clinics. There are many vaccine clinic locations within the [facility]. For locations and available times, please visit [email or web address] [email or web address] It is important to note that some COVID mobile vaccine clinics are held outdoors and may be canceled in rainy or stormy conditions. To learn more about pediatric vaccinations (ages 5-11), we invite you to visit the [facility] webpage. [email or web address]://[email or web address].[email or web address]/pa [email or web address]-Hyzwb-Gakvbrxszyv-Freque xuxm-[email or web address]-Vnkcsoaqy.html To learn more about the COVID-19 vaccine, we invite you to visit the CDC website for a list of frequently asked questions. https://www.cdc.gov/coronavirus/2 019-ncov/vaccines/faq.html [email or web address] Patient Portal Access Instructions: Stay connected with your healthcare team and access your personal medical information anytime with the [employer] Patient Portal. If you would like a full copy of your medical records please contact the [facility] Medical Records Department Friday through Friday between 8a.m. and 4:30p.m. Please follow the directions below to access the portal: 1.Access the email account you provided upon registration to the hospital.2.Look for an invitation email from [facility].3.Open the email and access the invitation link: Accept Invitation to [facility].Fill in the required boyle to create your account. Sign into www.[employer] with your username and password that you [...] you will allow to register on the [employer] Patient Portal for access to your information. You can also access the [employer] Patient Portal on the [employer] hubert. Simply click on Health Records under Health Data and then click on the [employer] logo. HOW TO SAFELY DISPOSE OF PRESCRIPTION [...] Call your local pharmacy or go to [email or web address] to find one close to you.3.Make use of household items: Use cat litter or old coffee grounds to dispose medications if other options are not available. Mix your drugs with these household products, seal them in an airtight container and throw it into the garbage. Call [facility]: [phone] to be sure your drugs can be [...] aware that I should contact my doctor. Patient/De Alcholizer Signature: Date/Time: Relationship to Patient: ____ Witness Name/Signature: Date/Time: [facility] 10-11-2022 Note ORIGINAL EXAMINATION: ONE XRAY VIEW [...] 10/11/2022 12:03:50 PM Ordering Provider: NISHI MIDDLETON [facility] 10-11-2022 Note ATRIAL FLUTTER TACHY CARDIA Consider right atrial enlargement Inferior infarct, old Borderline ST elevation, anterolateral leads Baseline wander in lead(s) V2,V4,V5 Electronic Signature: NISHI MIDDLETON MD 10/11/2022 11:33:52 [facility] Evaluation + Plan note Future Appointments Appointment Date:10/16/2022 03:30:00 PM Scheduled Provider:TODD ALBERTS Location:[facility] Appointment Type:PC OV Follow Up Future Scheduled TestsBasic Metabolic Panel 7/3/23A1C Hemoglobin 7/3/23Lipid Profile 09/16/22 [facility] Evaluation + Plan note Future Appointments Appointment Date:01/28/2023 11:30:00 AM Scheduled Provider:YAMILETH CID Location:[facility] Appointment Type:PC OV Future Scheduled TestsBasic Metabolic Panel 7/3/23Prostate Specific Antigen 8/29/23A1C Hemoglobin 7/3/23Lipid Profile 09/16/22 [facility] Evaluation + Plan note Future Appointments Appointment Date:03/28/2023 01:45:00 PM Scheduled Provider: Location:[facility] Appointment Type:PC Nurse BP Check Future Scheduled TestsBasic Metabolic Panel 7//Prostate Specific Antigen 8/29/23A1C Hemoglobin 7/3/23Lipid Profile 09/16/22 [facility] Evaluation + Plan note Future Appointments Appointment Date:08/05/2023 11:00:00 AM Scheduled Provider:YAMILETH CID Location:[facility] Appointment Type:PC OV Future Scheduled TestsBasic Metabolic Panel 7//23Prostate Specific Antigen 8/29/23A1C Hemoglobin 7/3/23Lipid Profile //Albumin/Creatinine Ratio, Random Urine 07/29/23 [facility] Evaluation note Diagnosis Radiculopathy, lumbar region Thoracic or lumbosacral neuritis or radiculitis, unspecified Lumbar radiculopathy, chronic Thoracic or lumbosacral neuritis or radiculitis, unspecified documented in this encounter [facility] Work Phone: Evaluation note* Diagnosis Open wound of left great toe, subsequent encounter- Primary documented in this encounter [facility] note* Diagnosis Pain, dental- Primary documented in this encounter [facility] note* Diagnosis Dental abscess- Primary Periapical abscess without sinus [facility] Narrative No data available for this section [facility] Hospital Discharge instructions No data available for this section [facility] Hospital Discharge instructions* Attachments The following attachments cannot be sent through Care Everywhere. * Tooth: Abscessed (Turkmen) [facility] No data available for this section [facility] Assessments Diagnosis Smoker Tobacco use disorder Left [...] section and content) DATE CREATED AUTHOR 06/03/2020 [facility] DATE CREATED AUTHOR AUTHOR'S ORGANIZ ATION 07/13/2021 [facility] DATE CREATED AUTHOR AUTHOR'S ORGANIZ ATION 03/08/2022 [facility] [employer] [facility] DATE CREATED AUTHOR AUTHOR'S ORGANIZ ATION 11/14/2023 [facility] ([place]) DATE CREATED AUTHOR AUTHOR'S ORGANIZ ATION 04/27/2024 [facility] DATE CREATED AUTHOR AUTHOR'S ORGANIZ ATION 04/27/2024 [facility] DATE CREATED AUTHOR AUTHOR'S ORGANIZ ATION 05/30/2024 [facility] DATE CREATED AUTHOR AUTHOR'S ORGANIZ ATION 09/12/2024 [facility] Care Teams (unrecognized sec tion and content) [employer] Att[employer] Relationship Specialty Start Date End Date JeannieXavier lacey, [address] [place] [address] PCP - General Family Medicine 03/29/20 [employer] Relationship Specialty Start Date End Date Yamileth Cid CNP Nurse Practitioner Primary Care 08/12/23 [employer] Relationship Specialty Start Date End Date Physician, No Pcp PCP - General 05/27/24 [employer] Relationship Specialty Start Date End Date Physician, [...] Last Filled Start Date End Date diphenhydramine-al lezhzz-sjrwxsvvd-x imethicone-lidocai ne (MAGIC MOUTHWASH) 61-764-700-40-200 mg/30 mL liquid suspension Take 10 mL [...] 1058 (Given - Provid er: Sanjay Alyssa, MORGUE TECHNICIAN) HYDROcodone-acetaminophen (NORCO) 5-325 mg per tablet 1 tablet (COMPLETED) 1 tablet, oral, Once, On Fri05/28/24 at 1033, For 1 dose 1057 (Given - Provid er: Sanjay Alyssa, MORGUE TECHNICIAN) sulfamethoxazole-trimethoprim (BACTRIM DS,SEPTRA DS) 800-160 mg per tablet 1 tablet (COMPLETED) 1 tablet, oral, Once, On Fri05/28/24 at 1033, For 1 dose, Indication: Head/Ear/Eye/Nose/Throat Coverage 1058 (Given - Provid er: Sanjay Alyssa, MORGUE TECHNICIAN) FOR RECORDS PERTAINING TO PATIENTS WHO ARE [...] BE BASED ON THE PRIMARY CLINICAL RECORDS. [employer] [facility]. provides no warranty or guarantee of the accuracy or completeness of information in this document.
[2024-09-15 23:40] LABS: Alcohol, Blood (Medical)-Serum < 10.1 mg/dL (<=10.0)
[2024-09-16] VITALS (7 sets, daily range): BP systolic 127–149; BP diastolic 71–88; PULSE 60–90; RESP 14–18; TEMP 36.7–37.1; O2SAT 93–99; BMI 50.3
[2024-09-16] MEDS: Vancomycin HCl 1,500 MG in 0.9% Normal Saline (500mL Bag) 500 ML 250 MG IV ×2 (00:38→08:30)
[2024-09-16] MEDS: Ampicillin/Sulbactam 3 GM in 0.9% Normal Saline (100mL MB+) 100 ML IV ×4 (05:52→23:59)
[2024-09-16 06:28] LABS: Hematocrit 37.4 % (40-54); Hemoglobin 13.2 g/dL (13.0-16.5); Mean Corp Hgb Conc 35.3 g/dL (32-36); Mean Corpuscular Volume 90.1 fL (80-94); Mean Platelet Vol. 9.5 fl (6.2-12.0); Platelet Count 228 K/mm3 (150-450); RBC Distribution Width CV 13.9 % (11.6-14.6); RBC Distribution Width SD 45.1 fl (35.1-43.9); Red Blood Count 4.15 M/mm3 (4.6-6.2); White Blood Count 11.2 K/mm3 (4.4-11.0)
[2024-09-16 07:02] LABS: Anion Gap 11 (5-15); BUN 14 mg/dL (4-19); BUN/Creat Ratio 19.9 RATIO (10-20); Calcium,Total 8.8 mg/dL (7.6-11.0); Carbon Dioxide 21.2 mmol/L (21.0-32.0); Chloride 96 mmol/L (98-108); Estimated Creatinine Clearance 202.79 ml/min (50-250); Glucose 227 mg/dL (70-99); Potassium 3.8 mmol/L (3.3-5.1)
--- NOTE | 2024-09-16 08:05 | NURSING ---
0830 dose of vancomycin is not on unit for pt administration
--- NOTE | 2024-09-16 08:05 | NURSING ---
0830 dose of vancomycin is not on unit for pt administration
--- NOTE | 2024-09-16 08:27 | NURSING ---
0830 vanc not here Rx called about dose-they said they will send
--- NOTE | 2024-09-16 08:27 | NURSING ---
0830 vanc not here Rx called about dose-they said they will send
--- NOTE | 2024-09-16 09:02 | CASEMGMT ---
Discharge Planning A list of?SNF providers including quality and resource use data and consistent with the patient's preferred geographic region, medical needs, and insurance network was created in CarePort Guide.? This list was provided to the SW. Huma Hobbs Discharge Planning Asst.
[2024-09-16] MEDS: Furosemide 20 MG/2 ML VIAL IV ×2 (10:00→16:06)
[2024-09-16] MEDS: Insulin Glargine-YFGN 100 UNIT/ML Pen 15 UNIT SC (10:20)
[2024-09-16] MEDS: APIXABAN 5 MG TABLET PO ×2 (10:22→21:14)
[2024-09-16] MEDS: BACITRACIN 15 GM Tube 1 APPLIC TOPICAL ×2 (10:23→21:13)
--- NOTE | 2024-09-16 11:26 | CASEMGMT ---
Social Work SW met w/pt, completed SDOH and assessment regarding prior level of function and anticipated discharge plan. PCP: None, pt has been trying to get established w/[facility] but has struggled to get there to get the paperwork completed. Specialists: None Insurance/Prescription coverage: [facility] Community Plan Pharmacy: Pt did use [facility] in [place] but it closed. Pt is not sure what pharmacy he wants to use, is wanting to see where he may live before deciding. LNOK: Sister, three children, exwife, girlfriend LW/POA: Pt has not completed, declined further information upon admission. Living arrangements/prior level of function: Pt has been staying at [facility] for a month. Pt has been homeless for a year. He stays w/his sister occasionally. Pt has been to [facility] in the past, but states it is not safe and will not go back. Pt is normally independent but states is struggling to care for himself and meet his own medical needs. Pt has run out of medications, he states cannot get up and down steps. He struggles to care for his legs and feet. He also has difficulty getting where he needs to go. DME/SNF/HHC/Outpt PT: Pt has a rollator, and has done aquatic therapy at [facility]. Pt has no other DME, has never been to SNF, never had HHC. Substance Abuse: Pt states was drinking a lot when going through his divorce, but now drinks only occasionally. Pt denies any other substance abuse, denies needing any assist w/substance abuse at this time. Mental Health: Pt does confirm history of anxiety and depression. Pt denies being suicidal at this time. Pt states he is hanging on for dear life. He states that he has been in therapy multiple times in the past, not at present. He may be interested in returning to counseling, but not right now. Pt states if he could get housing established he knows he would feel better overall. Pt is not sure if he is taking anything for depression or anxiety at this time, states he has a very long list of medications. (As per chart, pt is on 60 mg fluoxetine/day). Transportation: This is a difficulty for pt, will give pt resources. Plan: Pt would like to go to SNF at discharge. SW will follow up w/pt and provide SNF list, for pt to make choices. SW did educate pt that his insurance will need to authorize this, pt states understanding. Pt needs to use restroom, SW will follow up shortly. BABAR Penny
--- NOTE | 2024-09-16 11:26 | CASEMGMT ---
Social Work SW met w/pt, completed SDOH and assessment regarding prior level of function and anticipated discharge plan. PCP: None, pt has been trying to get established w[facility] but has struggled to get there to get the paperwork completed. Specialists: None Insurance/Prescription coverage: [facility] Community Plan Pharmacy: Pt did use [facility] in [place] but it closed. Pt is not sure what pharmacy he wants to use, is wanting to see where he may live before deciding. LNOK: Sister, three children, exwife, girlfriend LW/POA: Pt has not completed, declined further information upon admission. Living arrangements/prior level of function: Pt has been staying at [facility] for a month. Pt has been homeless for a year. He stays w/his sister occasionally. Pt has been to [facility] in the past, but states it is not safe and will not go back. Pt is normally independent but states is struggling to care for himself and meet his own medical needs. Pt has run out of medications, he states cannot get up and down steps. He struggles to care for his legs and feet. He also has difficulty getting where he needs to go. DME/SNF/HHC/Outpt PT: Pt has a rollator, and has done aquatic therapy at [facility]. Pt has no other DME, has never been to SNF, never had HHC. Substance Abuse: Pt states was drinking a lot when going through his divorce, but now drinks only occasionally. Pt denies any other substance abuse, denies needing any assist w/substance abuse at this time. Mental Health: Pt does confirm history of anxiety and depression. Pt denies being suicidal at this time. Pt states he is hanging on for dear life. He states that he has been in therapy multiple times in the past, not at present. He may be interested in returning to counseling, but not right now. Pt states if he could get housing established he knows he would feel better overall. Pt is not sure if he is taking anything for depression or anxiety at this time, states he has a very long list of medications. (As per chart, pt is on 60 mg fluoxetine/day). Transportation: This is a difficulty for pt, will give pt resources. Plan: Pt would like to go to SNF at discharge. SW will follow up w/pt and provide SNF list, for pt to make choices. SW did educate pt that his insurance will need to authorize this, pt states understanding. Pt needs to use restroom, SW will follow up shortly. BABAR Penny
--- NOTE | 2024-09-16 12:40 | CASEMGMT ---
Addendum entered by Mario Edwards 09/16/24 14:44: At this time, [facility] has declined. Referrals are still pending for [place] [facility]. Original Note: See GINGER and JORDIN Finn notes. This RN CM to the pt room. Pt chose the SNF's in the order of 1.) [facility], 2.) [facility], 3.) [facility] ([place]), & 4.) [facility]. Per the DPA, [facility] is full as they do not currently have any bed availability. At this time, a referral has been sent to [facility], [place], and [facility] via [facility]. Awaiting return responses.
--- NOTE | 2024-09-16 12:40 | CASEMGMT ---
Addendum entered by Mario Edwards 09/16/24 14:44: At this time, [facility] has declined. Referrals are still pending for [place] [facility]. Original Note: See GINGER and JORDIN Finn notes. This RN CM to the pt room. Pt chose the SNF's in the order of 1.) [facility], 2.) [facility], 3.) [facility] ([place]), & 4.) [facility] Bed Unit. Per the DPA, [facility] is full as they do not currently have any bed availability. At this time, a referral has been sent to [facility], [place], and [facility] via [facility]. Awaiting return responses.
--- NOTE | 2024-09-16 15:33 | PN.HOSP_ITS ---
Reason for Visit Reason for Visit: Diagnoses Tinea unguium (09/15/24) Type 2 diabetes mellitus with diabetic polyneuropathy (09/15/24) Cellulitis of left lower limb (09/15/24) Non-pressure chronic ulcer of other part of right foot with fat layer exposed (09/15/24) Non-pressure chronic ulcer of other part of left foot with fat layer exposed (09/15/24) Pain in right toe(s) (09/15/24) Pain in left toe(s) (09/15/24) Edema, unspecified (09/15/24) Blister (nonthermal), left foot, initial encounter (09/15/24) Objective Data Objective Data Vital Signs: Vital Signs Temp Pulse Resp BP Pulse Ox O2 Del Method 98.1 F 80 18 149/85 H 94 Room Air 09/16/24 08:53 09/16/24 13:39 09/16/24 08:53 09/16/24 08:53 09/16/24 08:53 09/16/24 08:53 Oxygen Delivery Method Room Air Weight: 371 lb 4.135 oz Body Mass Index (BMI) 50.3 Intake & Output: Intake and Output for Last 24 Hours 09/14/24 09/15/24 09/16/24 23:59 23:59 23:59 Intake Total 630 / 630 2157 / 2157 Output Total 500 / 500 1700 / 1700 Balance 130 / 130 457 / 457 Lab / Micro Data 09/16/24 05:55 09/16/24 05:55 Labs: Laboratory Results - last 24 hr 09/15/24 13:52: WBC 12.9 H, RBC 4.31 L, Hgb 13.8, Hct 40.1, MCV 93.0, MCH 32.0, MCHC 34.4, RDW Std Deviation 47.6 H, RDW Coeff of Rachel 14.0, Plt Count 262, MPV 9.9, Immature Gran % (Auto) 0.800, Neut % (Auto) 86.1 H, Lymph % (Auto) 6.3 L, [place]aga % (Auto) 6.0, Eos % (Auto) 0.2, Baso % (Auto) 0.6, Absolute Neuts (auto) 11.1 H, Absolute Lymphs (auto) 0.81 L, Nucleated RBC % 0, Differential Comment SCANNED, Platelet Estimate ADEQUATE, ESR 18, PT 14.0, INR 1.1, APTT 32.5, H emoglobin A1c 10.6 H, Troponin T High Sens 42 H, b-Hydroxybutyric mmol/L 0.0 09/15/24 15:02: Lactic Acid 1.8 09/15/24 17:20: Troponin T Hi Sens 2 Hr 34 H 09/15/24 17:38: POC Glucose 374 H 09/15/24 19:50: Troponin T Hi Sens 4Hr 34 H, Ethyl Alcohol < 10.1 09/15/24 20:28: POC Glucose 244 H 09/16/24 05:55: WBC 11.2 H, RBC 4.15 L, Hgb 13.2, Hct 37.4 L, MCV 90.1, MCH 31.8, MCHC 35.3, RDW Std Deviation 45.1 H, RDW Coeff of Rachel 13.9, Plt Count 228, MPV 9.5, Sodium 129 L, Potassium 3.8, Chloride 96 L, Carbon Dioxide 21.2, Anion Gap 11, BUN 14, Creatinine 0.71, Estim Creat Clear Calc 202.79, Est GFR (MDRD) Non-Af 113, BUN/Creatinine Ratio 19.9, Glucose 227 H, Calcium 8.8 09/16/24 11:01: POC Glucose 231 H ABG Data ABG results: ABG 09/15/24 16:02 Specimen Type CLARITZA Sample Site Not entered VBG pH 7.34 VBG pO2 21 L VBG HCO3 29 H VBG Total CO2 30 VBG O2 Sat (Calc) 31 L VBG Base Excess 3 POC Mix VBG pCO2 Pt Tmp 53.7 H O2 Delivery Device Not entered Radiography Diagnostic Testing: Radiology Impression Venous Doppler Study 09/15/24 14:28 Interpretation Summary Deep veins of the left lower extremity are patent and compressible segmentally. There is no evidence of left lower extremity deep vein thrombosis. The left great saphenous vein appears patent and compressible segmentally. Ordering Physician: Giovany Valdez Performed By: Maria Dolores Aaron RVT Chest X-Ray 09/15/24 15:03 IMPRESSION: No acute pulmonary process Reading Location: [facility] Foot X-Ray 09/15/24 15:03 IMPRESSION: No more than minimal degenerative changes are seen. No osseous destructive changes evident. No cortical or periosteal abnormality is seen to suggest the presence of osteomyelitis. Satisfactory osseous alignment is present. No fracture or dislocation is seen. Reading Location: [facility] Echocardiogram 09/15/24 16:57 Interpretation Summary The estimated ejection fraction is 55???60 %. Normal LV systolic function No significant valvular abnormality Contrast echo using Definity. No prior echo to compare Ordering Physician: Dg Fox Referring Physician: NO PCP Performed By: Lashae Mesa and Student Social Homelessness:: Sheltered Physical Exam Narrative Seen and examined. Patient is homeless. Was not checking glucose or insulin at home. High glucose here and A1c. Came with the left heel ulcer. No fever. Has bilateral knee diabetic neuropathy with paresthesia. Denies any CAD, cardiac stent or PAD or history of lower extremity angiogram/angioplasty/stent. Physical exam General: Alert, Oriented x3, Cooperative HEENT: Atraumatic, PERRLA, EOMI, Normocephalic. Oral: No Gingival or Mucosal Lesions/ Ulcerations Neck: Supple, No JVD, Negative Carotid Bruits Chest wall/Lungs: Air entry diminished in bilateral lung bases. No crepitation/rhonchi Cardiovascular: Regular rate and rhythm, No M/G/R. DP and PT pulses faintly palpable bilateral probably due to swelling Abdomen: Bowel Sounds Present, Soft, Non Tender, Non-Distended : No dysuria. No renal angle tenderness. No suprapubic tenderness. Extremities: Bilateral feet edema left more than right, Capillary Refill Less than 3 Seconds Skin: Ulcer over plantar aspect of 4th and 5th metatarsal head on left foot. Dry eschar over the ulcer. No drainage. Toenails are thickened. Musculoskeletal: No Tenderness to Palpation of Joints or Extremities Neurological: Cranial nerves II-XII grossly intact, DTR 2+/4. No acute focal neurological deficit. Psych/Mental Status: Flat affect Assessment & Plan Assessment/Plan (1) Cellulitis of left leg: PLAN: Plan Patient is a 48-year-old male who presented to [facility] ED on 09/15/2024 with worsening left lower leg swelling with left foot wound with increased redness and worsening pain on left lower extremity for last 4 days after he bumped his foot a week ago. 1. Left lower extremity cellulitis, complicated with left plantar ulcer with stable full-thickness wound with dry eschar on both feet and stable blister to the left medial heel with bilateral leg swelling on superimposed diabetic neuropathy ? Admit under inpatient status to PCU. Podiatry and wound care consulted. PT/OT/case management consulted. Podiatry evaluated the patient this evening; foot x-rays with no evidence of osteomyelitis and bilateral foot wounds appear stable with dry eschar. Podiatry recommended conservative management with IV antibiotics and appropriate wound care, no need for surgical intervention at this time. Will treat with IV vancomycin and Unasyn for now. Appreciate therapy recommendations. 09/16: Consult note of Dr. Aranda reviewed. 2. Poorly controlled type 2 diabetes mellitus with severe hyperglycemia, diabetic neuropathy ? Blood glucose 501 on admit. Last A1c 10.9% in July, repeat A1c ordered. Nonadherent to home oral diabetes medications. No evidence of DKA on admit. Started on Lantus 15 units twice daily and Humalog 8 units with meals plus sliding scale insulin while inpatient, adjust as needed.Continue home gabapentin. Hold home oral medications. 09/16: Glucose is high, uncontrolled 231 to 374. A1c 10.6%. Beta-hydroxybutyrate 0. Lactic acid 1.8. Anion gap normal. Venous pH 7.34, mixed pCO2 53, bicarb 29. DKA ruled out. 3. Poor social situation with homelessness and medication nonadherence ? Case management/social work consulted. Patient is homeless and reports nonadherence to all home medications for 1 to 2 months due to running out of them. Appreciate case management and social work assistance. 4. Concern for new onset CHF in setting of hypertension, hyperlipidemia, paroxysmal A-fib/flutter ? Patient with mild volume overload noted on admit with lower extremity edema and mild abdominal distention. BNP elevated at 2086. Was started on Lasix 20 mg IV twice daily. 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 Continue home Eliquis statin and Coreg. Hold lisinopril, HCTZ and clonidine for now. 09/16: 2D echo shows EF 55 to 60%. No significant valvular abnormality. Normal LV systolic function 5. IVANA ? Creatinine 1.34 on admit, baseline around 0.7. Suspect secondary to mild CHF exacerbation as above. Treated with IV Lasix as above, follow-up BMP and urine output. 09/16: Creatinine 0.71, BUN 14. Hold HCTZ as patient on Lasix. Resume lisinopril from tomorrow a.m. 6. Anxiety/depression ? Continue home fluoxetine. 7. Class III obesity ? BMI 41 on admit. Complicates hospital course, care and prognosis. 8. Recent history of alcohol abuse ? Patient hospitalized in March and July of this year for alcohol detox. Reports that he has been sober since July. Alcohol level ordered. Case management consulted as above for resources if needed. Encouraged continued cessation. Will hold on CIWA protocol at this time. 9. Tobacco abuse ? Reports smoking 0.5-1 packs of cigarettes per day. Nicotine patch in place per patient request. Discussed cessation of discharge. DVT prophylaxis: Not indicated, on Eliquis CODE STATUS: Full code, verified Laboratory Results 09/15/24 13:52: Differential Comment SCANNED, Platelet Estimate ADEQUATE, ESR 18, PT 14.0, INR 1.1, APTT 32.5, Hemoglobin A1c 10.6 H, b-Hydroxybutyric mmol/L 0.0 09/15/24 15:02: Lactic Acid 1.8 09/15/24 16:02: Specimen Type CLARITZA, Sample Site Not entered, VBG pH 7.34, VBG pO2 21 L, VBG HCO3 29 H, VBG Total CO2 30, VBG O2 Sat (Calc) 31 L, VBG Base Excess 3, POC Mix VBG pCO2 Pt Tmp 53.7 H, O2 Delivery Device Not entered 09/15/24 17:20: Troponin T Hi Sens 2 Hr 34 H 09/15/24 17:38: POC Glucose 374 H 09/15/24 19:50: Troponin T Hi Sens 4Hr 34 H, Ethyl Alcohol < 10.1 09/15/24 20:28: POC Glucose 244 H 09/16/24 05:55: WBC 11.2 H, RBC 4.15 L, Hgb 13.2, Hct 37.4 L, MCV 90.1, MCH 31.8, MCHC 35.3, RDW Std Deviation 45.1 H, RDW Coeff of Rachel 13.9, Plt Count 228, MPV 9.5, Sodium 129 L, Potassium 3.8, Chloride 96 L, Carbon Dioxide 21.2, Anion Gap 11, BUN 14, Creatinine 0.71, Estim Creat Clear Calc 202.79, Est GFR (MDRD) Non-Af 113, BUN/Creatinine Ratio 19.9, Glucose 227 H, Calcium 8.8 09/16/24 11:01: POC Glucose 231 H Clinical Impression(s) from Imaging Studies Venous Doppler Study 09/15/24 14:28 Interpretation Summary Deep veins of the left lower extremity are patent and compressible segmentally. There is no evidence of left lower extremity deep vein thrombosis. The left great saphenous vein appears patent and compressible segmentally. Ordering Physician: Giovany aVldez Performed By: Maria Dolores Aaron, RVT Chest X-Ray 09/15/24 15:03 IMPRESSION: No acute pulmonary process Reading Location: [facility] Foot X-Ray 09/15/24 15:03 IMPRESSION: No more than minimal degenerative changes are seen. No osseous destructive changes evident. No cortical or periosteal abnormality is seen to suggest the presence of osteomyelitis. Satisfactory osseous alignment is present. No fracture or dislocation is seen. Reading Location: [facility] Echocardiogram 09/15/24 16:57 Interpretation Summary The estimated ejection fraction is 55???60 %. Normal LV systolic function No significant valvular abnormality Contrast echo using Definity. No prior echo to compare Ordering Physician: Dg Fox Referring Physician: NO PCP Performed By: Lashae Mesa and Student Charges/Coding Visit Charges Inpatient E&M: 06747 Subs Hosp L2
--- NOTE | 2024-09-16 16:15 | NURSING ---
1630 Vanc dose not on unit for pt administration
--- NOTE | 2024-09-16 16:15 | NURSING ---
1630 Vanc dose not on unit for pt administration
--- NOTE | 2024-09-16 16:16 | CASEMGMT ---
Social Work Pt was accepted at [facility]. [facility] declined, [facility] is full. No definitive answer yet from [facility]. [facility] accepted pt. GINGER reviewed the above w/pt, he is agreeable to [facility]. GINGER explained there is a chance we could get precert on the weekend, if not pt will be here until Friday, pt states understanding. GINGER completed PAS/RR, this with results will be placed on chart along w/green sheet and transport form. JESUS Joseph did ask [facility] to call PCU directly should they get precert on the weekend. GINGER/JESUS will follow up Friday should pt still be here. BABAR Penny
--- NOTE | 2024-09-16 16:42 | NURSING ---
vancomycin still not on unit for 1630 dose
--- NOTE | 2024-09-16 16:42 | NURSING ---
vancomycin still not on unit for 1630 dose
[2024-09-16 16:43] LABS: Vancomycin, Trough Level 12.2 ug/mL (5.0-15.0)
--- NOTE | 2024-09-16 17:01 | PCM.PN.SRG ---
Subjective Subjective Patient is a 48-year-old diabetic male seen at bedside today for bilateral lower extremity dressing change. Patient still admits to some discomfort to the left lower extremity. He has no pain to the right lower extremity. He is being managed by medicine team. No acute events overnight. Denies trauma. Denies constitutional symptoms. No other pedal complaints at this time. Objective Data Objective Data Vital Signs: Vital Signs Temp Pulse Resp BP Pulse Ox O2 Del Method 98.0 F 80 18 139/88 H 94 Room Air 09/16/24 15:00 09/16/24 15:00 09/16/24 15:00 09/16/24 15:00 09/16/24 15:00 09/16/24 15:00 Oxygen Delivery Method Room Air Weight: 168.4 kg Body Mass Index (BMI) 50.3 Intake & Output: Intake and Output for Last 24 Hours 09/14/24 09/15/24 09/16/24 23:59 23:59 23:59 Intake Total 630 / 630 2257 / 2257 Output Total 500 / 500 1700 / 1700 Balance 130 / 130 557 / 557 Lab / Micro Data 09/16/24 05:55 09/16/24 05:55 Labs: Laboratory Results - last 24 hr 09/15/24 13:52: PT 14.0, INR 1.1, APTT 32.5, Hemoglobin A1c 10.6 H, b-Hydroxybutyric mmol/L 0.0 09/15/24 17:20: Troponin T Hi Sens 2 Hr 34 H 09/15/24 17:38: POC Glucose 374 H 09/15/24 19:50: Troponin T Hi Sens 4Hr 34 H, Ethyl Alcohol < 10.1 09/15/24 20:28: POC Glucose 244 H 09/16/24 05:55: WBC 11.2 H, RBC 4.15 L, Hgb 13.2, Hct 37.4 L, MCV 90.1, MCH 31.8, MCHC 35.3, RDW Std Deviation 45.1 H, RDW Coeff of Rachel 13.9, Plt Count 228, MPV 9.5, Sodium 129 L, Potassium 3.8, Chloride 96 L, Carbon Dioxide 21.2, Anion Gap 11, BUN 14, Creatinine 0.71, Estim Creat Clear Calc 202.79, Est GFR (MDRD) Non-Af 113, BUN/Creatinine Ratio 19.9, Glucose 227 H, Calcium 8.8 09/16/24 11:01: POC Glucose 231 H 09/16/24 15:58: Vancomycin Trough 12.2 09/16/24 15:59: POC Glucose 273 H Radiography Diagnostic Testing: Radiology Impression Echocardiogram 09/15/24 16:57 Interpretation Summary The estimated ejection fraction is 55???60 %. Normal LV systolic function No significant valvular abnormality Contrast echo using Definity. No prior echo to compare Ordering Physician: Dg Fox Referring Physician: NO PCP Performed By: Lashae Mesa and Student Social Homelessness:: Sheltered Physical Exam Narrative Neurovascular status is unchanged. Skin temp great is warm to warm from proximal ankles to distal digit with noted focal increase to the left lower extremity with blanchable erythema. Upon elevation of the left lower extremity there shows evidence of a dependent rubor. +1 pitting edema is noted. Stable full-thickness eschars to the plantar aspect of both feet with no sign of infection. Stable blister that was deroofed to the medial left heel, no concern for infection. No pain with calf compression bilateral. Assessment & Plan Assessment/Plan (1) Cellulitis of left leg: PLAN: Patient was examined and evaluated. All findings were discussed with the patient. All questions were answered to the patient satisfaction. The patient's bilateral plantar eschar and left medial blister was dressed with Betadine soaked gauze, dry sterile dressing and a single-layer Mittal compression bandage was donned to the bilateral lower extremity. Overall the patient is slowly improving to the left lower extremity after physical exam there still shows evidence of some blanchable erythema with evidence of dependent rubor when elevated. WBC: 12.9 -> 11.2 Glucose: 501 -> 227 HbA1c: 10.6 CRP: 198.0 ESR: 18 Medicine: On board, medical management, IV antibiotics: Vancomycin and Unasyn PT/OT: On board Case management:SNF pending From a podiatry standpoint there is no plan for surgical intervention during this hospital stay. Will continue conservative management with outpatient wound care. Please have nursing staff changed the patient's dressing every other day. Please continue wound care as discussed Please reach out to Dr. Dubois for any question or concerns. Thank you for letting me be involved in the patient care (2) Non-pressure chronic ulcer of other part of right foot with fat layer exposed: (3) Non-pressure chronic ulcer of other part of left foot with fat layer exposed: (4) Pain in left leg:
--- NOTE | 2024-09-16 17:25 | PCM.RX.CS ---
Consult Antibiotic Management Pharmacy has been consulted to manage selected antibiotic: Vancomycin Type of Intervention Type of Consult: Follow-up Suspected Infection Suspected Infection: Skin/Soft tissue Prior Doses of Antibiotics Prior Doses of Antibiotics Received/Current Regimen: 1500 mg q8h Labs Labs: Sodium 129 mmol/L (133-145) L 09/16/24 05:55 Potassium 3.8 mmol/L (3.3-5.1) 09/16/24 05:55 Chloride 96 mmol/L (98-108) L 09/16/24 05:55 Carbon Dioxide 21.2 mmol/L (21.0-32.0) 09/16/24 05:55 Anion Gap 11 (5-15) 09/16/24 05:55 BUN 14 mg/dL (4-19) 09/16/24 05:55 Creatinine 0.71 mg/dL (0.70-1.20) 09/16/24 05:55 Est GFR (MDRD) Non-Af 113 (>60) 09/16/24 05:55 BUN/Creatinine Ratio 19.9 RATIO (10-20) 09/16/24 05:55 Glucose 227 mg/dL (70-99) H 09/16/24 05:55 Vancomycin Trough 12.2 ug/mL (5.0-15.0) 09/16/24 15:58 Dosing Weight Weight used for dosin.4 kg Estimated Creatinine Clearance Estimated Creatinine Clearance: 202 Pharmacy Plan for Drug Dosing Pharmacy Plan for Drug Dosing: VANCOMYCIN LEVEL RECEIVED Current Vancomycin Dose: 1500 MG Q8H Number of Doses Received: 2 (0038, 0830) Vancomycin Level: 12.2 Hours Since Last Dose: 7.5 Renal Function: SCr 0.71mg/dL, CrCl: 202.79 ml/min (adjusted body weight) Renal Function Trend: DECLINING BUT FUNCTIONAL (WILL CONTINUE TO MONITOR) Lab/Micro: Vancomycin Plan/Comments: Level is sub-therapeutic. Will increase dose to 1750 mg q8h(Bayesian modeling), and then recheck before fourth dose. Pharmacy Service will continue to monitor and adjust dosing as required. Pending Level: 09/17/2024 @1700 Follow-Up Labs Follow-Up Labs: Trough: Vancomycin Date/Time Labs Ordered Labs to be done on [date and time ordered]: 09/17/2024 @1700
[2024-09-16] MEDS: Vancomycin HCl 1,750 MG in 0.9% Normal Saline (500mL Bag) 500 ML 250 MG IV (18:07)
[2024-09-16] MEDS: Insulin Glargine-YFGN 100 UNIT/ML Pen 20 UNIT SC (21:20)
[2024-09-17] VITALS (7 sets, daily range): BP systolic 118–143; BP diastolic 61–88; PULSE 63–82; RESP 14–18; TEMP 36.4–37.2; O2SAT 95–100; BMI 50.5
[2024-09-17] MEDS: Vancomycin HCl 1,750 MG in 0.9% Normal Saline (500mL Bag) 500 ML 250 MG IV ×3 (01:51→19:37)
[2024-09-17] MEDS: Ampicillin/Sulbactam 3 GM in 0.9% Normal Saline (100mL MB+) 100 ML IV ×4 (06:06→23:22)
[2024-09-17] MEDS: APIXABAN 5 MG TABLET PO ×2 (08:55→23:17)
[2024-09-17] MEDS: Furosemide 20 MG/2 ML VIAL IV ×2 (08:55→17:36)
[2024-09-17] MEDS: Insulin Glargine-YFGN 100 UNIT/ML Pen 20 UNIT SC (08:57)
[2024-09-17] MEDS: BACITRACIN 15 GM Tube 1 APPLIC TOPICAL ×2 (09:35→23:17)
--- NOTE | 2024-09-17 12:45 | PN.HOSP_ITS ---
Reason for Visit Reason for Visit: Diagnoses Tinea unguium (09/15/24) Type 2 diabetes mellitus with diabetic polyneuropathy (09/15/24) Cellulitis of left lower limb (09/15/24) Non-pressure chronic ulcer of other part of right foot with fat layer exposed (09/15/24) Non-pressure chronic ulcer of other part of left foot with fat layer exposed (09/15/24) Pain in left leg (09/15/24) Pain in right toe(s) (09/15/24) Pain in left toe(s) (09/15/24) Edema, unspecified (09/15/24) Blister (nonthermal), left foot, initial encounter (09/15/24) Objective Data Objective Data Vital Signs: Vital Signs Temp Pulse Resp BP Pulse Ox O2 Del Method 98.1 F 78 14 143/88 H 100 Room Air 09/17/24 08:45 09/17/24 08:45 09/17/24 08:45 09/17/24 08:45 09/17/24 08:45 09/17/24 08:45 Oxygen Delivery Method Room Air Weight: 372 lb 9.299 oz Body Mass Index (BMI) 50.5 Intake & Output: Intake and Output for Last 24 Hours 09/15/24 09/16/24 09/17/24 23:59 23:59 23:59 Intake Total 630 / 630 3964 / 4284 1710 / 1710 Output Total 500 / 500 2600 / 2990 1680 / 1680 Balance 130 / 130 1364 / 1294 30 / 30 Lab / Micro Data 09/16/24 05:55 09/16/24 05:55 Labs: Laboratory Results - last 24 hr 09/16/24 15:58: Vancomycin Trough 12.2 09/16/24 15:59: POC Glucose 273 H 09/16/24 21:20: POC Glucose 314 H 09/17/24 08:49: POC Glucose 271 H 09/17/24 11:15: POC Glucose 256 H Social Homelessness:: Sheltered Physical Exam Narrative Seen and examined. Complain of pain not controlled with Tylenol. Oxycodone ordered. Patient is homeless. Was not checking glucose or insulin at home. High glucose here and A1c on admission. Admitted with bilateral heel ulcer left foot worse than right foot. No fever. Has bilateral knee diabetic neuropathy with paresthesia. Denies any CAD, cardiac stent or PAD or history of lower extremity angiogram/angioplasty/stent. Physical exam General: Alert, Oriented x3, Cooperative HEENT: Atraumatic, PERRLA, EOMI, Normocephalic. Oral: No Gingival or Mucosal Lesions/ Ulcerations Neck: Supple, No JVD, Negative Carotid Bruits Chest wall/Lungs: Air entry diminished in bilateral lung bases. No crepitation/rhonchi Cardiovascular: Regular rate and rhythm, No M/G/R. DP and PT pulses faintly palpable bilateral probably due to swelling Abdomen: Bowel Sounds Present, Soft, Non Tender, Non-Distended : No dysuria. No renal angle tenderness. No suprapubic tenderness. Extremities: Bilateral feet edema left more than right, Capillary Refill Less than 3 Seconds Skin: Ulcer over plantar aspect of 4th and 5th metatarsal head on left foot. Dry eschar over the ulcer. No drainage. Toenails are thickened. Also a small ulcer on the lateral margin of the right foot, POA. Musculoskeletal: No Tenderness to Palpation of Joints or Extremities Neurological: Cranial nerves II-XII grossly intact, DTR 2+/4. No acute focal neurological deficit. Psych/Mental Status: Flat affect Assessment & Plan Assessment/Plan (1) Cellulitis of left leg: PLAN: Plan Patient is a 48-year-old male who presented to [facility] ED on 09/15/2024 with worsening left lower leg swelling with left foot wound with increased redness and worsening pain on left lower extremity for last 4 days after he bumped his foot a week ago. 1. Left lower extremity cellulitis, complicated with left plantar ulcer with stable full-thickness wound with dry eschar on both feet and stable blister to the left medial heel with bilateral leg swelling on superimposed diabetic neuropathy ? Admit under inpatient status to PCU. Podiatry and wound care consulted. PT/OT/case management consulted. Podiatry evaluated the patient this evening; foot x-rays with no evidence of osteomyelitis and bilateral foot wounds appear stable with dry eschar. Podiatry recommended conservative management with IV antibiotics and appropriate wound care, no need for surgical intervention at this time. Will treat with IV vancomycin and Unasyn for now. Appreciate therapy recommendations. 09/16: Consult note of Dr. Aranda reviewed. 09/17: Patient complained of pain in the feet. Started on oxycodone. 2. Poorly controlled type 2 diabetes mellitus with severe hyperglycemia, diabetic neuropathy ? Blood glucose 501 on admit. Last A1c 10.9% in July, repeat A1c ordered. Nonadherent to home oral diabetes medications. No evidence of DKA on admit. Started on Lantus 15 units twice daily and Humalog 8 units with meals plus sliding scale insulin while inpatient, adjust as needed.Continue home gabapentin. Hold home oral medications. 09/16: Glucose is high, uncontrolled 231 to 374. A1c 10.6%. Beta-hydroxybutyrate 0. Lactic acid 1.8. Anion gap normal. Venous pH 7.34, mixed pCO2 53, bicarb 29. DKA ruled out. 09/17: Glucose is 256. Gradually titrate up the insulin dose. 3. Poor social situation with homelessness and medication nonadherence ? Case management/social work consulted. Patient is homeless and reports nonadherence to all home medications for 1 to 2 months due to running out of them. Appreciate case management and social work assistance. 4. Concern for new onset CHF in setting of hypertension, hyperlipidemia, paroxysmal A-fib/flutter ? Patient with mild volume overload noted on admit with lower extremity edema and mild abdominal distention. BNP elevated at 2086. Was started on Lasix 20 mg IV twice daily. 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 Continue home Eliquis statin and Coreg. Hold lisinopril, HCTZ and clonidine for now. 09/16: 2D echo shows EF 55 to 60%. No significant valvular abnormality. Normal LV systolic function 5. IVANA ? Creatinine 1.34 on admit, baseline around 0.7. Suspect secondary to mild CHF exacerbation as above. Treated with IV Lasix as above, follow-up BMP and urine output. 09/16: Creatinine 0.71, BUN 14. Hold HCTZ as patient on Lasix. Resume lisinopril from tomorrow a.m. 6. Anxiety/depression ? Continue home fluoxetine. 7. Class III obesity ? BMI 41 on admit. Complicates hospital course, care and prognosis. 8. Recent history of alcohol abuse ? Patient hospitalized in March and July of this year for alcohol detox. Reports that he has been sober since July. Alcohol level ordered. Case management consulted as above for resources if needed. Encouraged continued cessation. Will hold on CIWA protocol at this time. 9. Tobacco abuse ? Reports smoking 0.5-1 packs of cigarettes per day. Nicotine patch in place per patient request. Discussed cessation of discharge. DVT prophylaxis: Not indicated, on Eliquis CODE STATUS: Full code, verified Laboratory Results 09/15/24 13:52: Differential Comment SCANNED, Platelet Estimate ADEQUATE, ESR 18, PT 14.0, INR 1.1, APTT 32.5, Hemoglobin A1c 10.6 H, b-Hydroxybutyric mmol/L 0.0 09/15/24 15:02: Lactic Acid 1.8 09/15/24 16:02: Specimen Type CLARITZA, Sample Site Not entered, VBG pH 7.34, VBG pO2 21 L, VBG HCO3 29 H, VBG Total CO2 30, VBG O2 Sat (Calc) 31 L, VBG Base Excess 3, POC Mix VBG pCO2 Pt Tmp 53.7 H, O2 Delivery Device Not entered 09/15/24 17:20: Troponin T Hi Sens 2 Hr 34 H 09/15/24 17:38: POC Glucose 374 H 09/15/24 19:50: Troponin T Hi Sens 4Hr 34 H, Ethyl Alcohol < 10.1 09/15/24 20:28: POC Glucose 244 H 09/16/24 05:55: WBC 11.2 H, RBC 4.15 L, Hgb 13.2, Hct 37.4 L, MCV 90.1, MCH 31.8, MCHC 35.3, RDW Std Deviation 45.1 H, RDW Coeff of Rachel 13.9, Plt Count 228, MPV 9.5, Sodium 129 L, Potassium 3.8, Chloride 96 L, Carbon Dioxide 21.2, Anion Gap 11, BUN 14, Creatinine 0.71, Estim Creat Clear Calc 202.79, Est GFR (MDRD) Non-Af 113, BUN/Creatinine Ratio 19.9, Glucose 227 H, Calcium 8.8 09/16/24 11:01: POC Glucose 231 H Clinical Impression(s) from Imaging Studies Venous Doppler Study 09/15/24 14:28 Interpretation Summary Deep veins of the left lower extremity are patent and compressible segmentally. There is no evidence of left lower extremity deep vein thrombosis. The left great saphenous vein appears patent and compressible segmentally. Ordering Physician: Giovany Valdez Performed By: Maria Dolores Aaron RVT Chest X-Ray 09/15/24 15:03 IMPRESSION: No acute pulmonary process Reading Location: [facility] Foot X-Ray 09/15/24 15:03 IMPRESSION: No more than minimal degenerative changes are seen. No osseous destructive changes evident. No cortical or periosteal abnormality is seen to suggest the presence of osteomyelitis. Satisfactory osseous alignment is present. No fracture or dislocation is seen. Reading Location: [facility]- Echocardiogram 09/15/24 16:57 Interpretation Summary The estimated ejection fraction is 55???60 %. Normal LV systolic function No significant valvular abnormality Contrast echo using Definity. No prior echo to compare Ordering Physician: Dg Fox Referring Physician: NO PCP Performed By: Lashae Mesa and Student Charges/Coding Visit Charges Inpatient E&M: 13573 Subs Hosp L2
[2024-09-17] MEDS: Vancomycin Trough/Random Due 1 LAB MC (16:29)
[2024-09-17 19:01] LABS: Vancomycin, Trough Level 18.0 ug/mL (5.0-15.0)
--- NOTE | 2024-09-17 19:19 | PCM.RX.CS ---
Consult Antibiotic Management Pharmacy has been consulted to manage selected antibiotic: Vancomycin Type of Intervention Type of Consult: Follow-up Labs Labs: Sodium 129 mmol/L (133-145) L 09/16/24 05:55 Potassium 3.8 mmol/L (3.3-5.1) 09/16/24 05:55 Chloride 96 mmol/L (98-108) L 09/16/24 05:55 Carbon Dioxide 21.2 mmol/L (21.0-32.0) 09/16/24 05:55 Anion Gap 11 (5-15) 09/16/24 05:55 BUN 14 mg/dL (4-19) 09/16/24 05:55 Creatinine 0.71 mg/dL (0.70-1.20) 09/16/24 05:55 Est GFR (MDRD) Non-Af 113 (>60) 09/16/24 05:55 BUN/Creatinine Ratio 19.9 RATIO (10-20) 09/16/24 05:55 Glucose 227 mg/dL (70-99) H 09/16/24 05:55 Vancomycin Trough 18.0 ug/mL (5.0-15.0) H 09/17/24 17:07 Dosing Weight Weight used for dosin kg Estimated Creatinine Clearance Estimated Creatinine Clearance: 203 Goal Trough Goal Trough: 15-20 mcg/mL Pharmacy Plan for Drug Dosing Pharmacy Plan for Drug Dosing: Vancomycin trough level of 18.0, drawn 8hrs post-dose, was within the target range of 15-20. Will continue dosing at 1750mg q8h, and will draw another trough level in two days. Pharmacy Service will continue to monitor and adjust dosing as required. Follow-Up Labs Follow-Up Labs: Trough: Vancomycin Date/Time Labs Ordered Labs to be done on [date and time ordered]: 09/19/24 @1700
[2024-09-17] MEDS: 0.9% Saline Lock 10 ML Syringe IV (19:37)
[2024-09-17] MEDS: Insulin Glargine-YFGN 100 UNIT/ML Pen 23 UNIT SC (23:31)
[2024-09-18] MEDS: Vancomycin HCl 1,750 MG in 0.9% Normal Saline (500mL Bag) 500 ML 250 MG IV ×2 (02:15→10:26)
[2024-09-18 03:54] VITALS: BMI 50.8
[2024-09-18 06:38] LABS: Hematocrit 36.0 % (40-54); Hemoglobin 12.3 g/dL (13.0-16.5); Immature Granulocytes Count 0.040 X10^3/uL (0.0-0.0); Mean Corp Hgb Conc 34.2 g/dL (32-36); Mean Corpuscular Volume 93.0 fL (80-94); Mean Platelet Vol. 9.8 fl (6.2-12.0); NRBC Flagged by Analyzer 0 % (0-5); Platelet Count 228 K/mm3 (150-450); RBC Distribution Width CV 13.7 % (11.6-14.6); RBC Distribution Width SD 47.1 fl (35.1-43.9); Red Blood Count 3.87 M/mm3 (4.6-6.2); White Blood Count 6.4 K/mm3 (4.4-11.0)
[2024-09-18] MEDS: Ampicillin/Sulbactam 3 GM in 0.9% Normal Saline (100mL MB+) 100 ML IV ×3 (06:40→17:53)
[2024-09-18 06:45] VITALS: BP 145/86; PULSE 65; RESP 18; TEMP 36.8; O2SAT 96
[2024-09-18 06:58] LABS: Anion Gap 9 (5-15); BUN 18 mg/dL (4-19); BUN/Creat Ratio 28.8 RATIO (10-20); Calcium,Total 8.4 mg/dL (7.6-11.0); Carbon Dioxide 23.3 mmol/L (21.0-32.0); Chloride 100 mmol/L (98-108); Estimated Creatinine Clearance 230.81 ml/min (50-250); Glucose 322 mg/dL (70-99); Potassium 3.7 mmol/L (3.3-5.1)
[2024-09-18 07:20] VITALS: O2SAT 94
[2024-09-18 10:23] VITALS: BP 136/86; PULSE 62; RESP 18; TEMP 36.6; O2SAT 96
[2024-09-18] MEDS: BACITRACIN 15 GM Tube 1 APPLIC TOPICAL ×2 (10:33→21:30)
[2024-09-18] MEDS: APIXABAN 5 MG TABLET PO ×2 (10:35→21:32)
[2024-09-18] MEDS: Insulin Glargine-YFGN 100 UNIT/ML Pen 30 UNIT SC ×2 (10:37→21:31)
--- NOTE | 2024-09-18 11:38 | PCM.PN.HOSP ---
Reason for Visit Reason for Visit: Diagnoses Tinea unguium (09/15/24) Type 2 diabetes mellitus with diabetic polyneuropathy (09/15/24) Cellulitis of left lower limb (09/15/24) Non-pressure chronic ulcer of other part of right foot with fat layer exposed (09/15/24) Non-pressure chronic ulcer of other part of left foot with fat layer exposed (09/15/24) Pain in left leg (09/15/24) Pain in right toe(s) (09/15/24) Pain in left toe(s) (09/15/24) Edema, unspecified (09/15/24) Blister (nonthermal), left foot, initial encounter (09/15/24) Objective Data Objective Data Vital Signs: Vital Signs Temp Pulse Resp BP Pulse Ox O2 Del Method 97.9 F 62 18 136/86 H 96 Room Air 09/18/24 10:23 09/18/24 10:23 09/18/24 10:23 09/18/24 10:23 09/18/24 10:23 09/18/24 10:23 Oxygen Delivery Method Room Air Weight: 374 lb 5.518 oz Body Mass Index (BMI) 50.8 Intake & Output: Intake and Output for Last 24 Hours 09/16/24 09/17/24 09/18/24 23:59 23:59 23:59 Intake Total 3964 / 4284 3287 / 3287 1135 / 1135 Output Total 2600 / 2990 2780 / 2780 1300 / 1300 Balance 1364 / 1294 507 / 507 -165 / -165 Lab / Micro Data 09/18/24 05:50 09/18/24 05:50 Labs: Laboratory Results - last 24 hr 09/17/24 16:34: POC Glucose 328 H 09/17/24 17:07: Vancomycin Trough 18.0 H 09/17/24 23:29: POC Glucose 347 H 09/18/24 05:50: WBC 6.4, RBC 3.87 L, Hgb 12.3 L, Hct 36.0 L, MCV 93.0, MCH 31.8, MCHC 34.2, RDW Std Deviation 47.1 H, RDW Coeff of Rachel 13.7, Plt Count 228, MPV 9.8, Immature Gran % (Auto) 0.600, Neut % (Auto) 58.8, Lymph % (Auto) 25.2, [place] % (Auto) 11.7 H, Eos % (Auto) 3.1, Baso % (Auto) 0.6, Absolute Neuts (auto) 3.7, Absolute Lymphs (auto) 1.60, Nucleated RBC % 0, Sodium 133, Potassium 3.7, Chloride 100, Carbon Dioxide 23.3, Anion Gap 9, BUN 18, Creatinine 0.62 L, Estim Creat Clear Calc 230.81, Est GFR (MDRD) Non-Af 116, BUN/Creatinine Ratio 28.8 H, Glucose 322 H, Calcium 8.4 09/18/24 08:04: POC Glucose 362 H Social Homelessness:: Sheltered Physical Exam Narrative Seen and examined. Complain of pain not controlled with Tylenol therefore on oxycodone. Pain is better controlled compared to yesterday. Glucose is high. Patient is homeless. Was not checking glucose or insulin at home. High glucose here and A1c on admission. Admitted with bilateral heel ulcer left foot worse than right foot. No fever. Has bilateral knee diabetic neuropathy with paresthesia. Denies any CAD, cardiac stent or PAD or history of lower extremity angiogram/angioplasty/stent. Physical exam General: Alert, Oriented x3, Cooperative HEENT: Atraumatic, PERRLA, EOMI, Normocephalic. Oral: No Gingival or Mucosal Lesions/ Ulcerations Neck: Supple, No JVD, Negative Carotid Bruits Chest wall/Lungs: Air entry diminished in bilateral lung bases. No crepitation/rhonchi Cardiovascular: Regular rate and rhythm, No M/G/R. DP and PT pulses faintly palpable bilateral probably due to swelling Abdomen: Bowel Sounds Present, Soft, Non Tender, Non-Distended : No dysuria. No renal angle tenderness. No suprapubic tenderness. Extremities: Bilateral feet edema left more than right, Capillary Refill Less than 3 Seconds Skin: Ulcer over plantar aspect of 4th and 5th metatarsal head on left foot. Dry eschar over the ulcer. No drainage. small ulcer on the lateral margin of the right foot, POA. Musculoskeletal: No Tenderness to Palpation of Joints or Extremities Neurological: Cranial nerves II-XII grossly intact, DTR 2+/4. No acute focal neurological deficit. Psych/Mental Status: Flat affect Assessment & Plan Assessment/Plan (1) Cellulitis of left leg: PLAN: Plan Patient is a 48-year-old male who presented to [facility] ED on 09/15/2024 with worsening left lower leg swelling with left foot wound with increased redness and worsening pain on left lower extremity for last 4 days after he bumped his foot a week ago. 1. Left lower extremity cellulitis, complicated with left plantar ulcer with stable full-thickness wound with dry eschar on both feet and stable blister to the left medial heel with bilateral leg swelling on superimposed diabetic neuropathy ? Admit under inpatient status to PCU. Podiatry and wound care consulted. PT/OT/case management consulted. Podiatry evaluated the patient this evening; foot x-rays with no evidence of osteomyelitis and bilateral foot wounds appear stable with dry eschar. Podiatry recommended conservative management with IV antibiotics and appropriate wound care, no need for surgical intervention at this time. Will treat with IV vancomycin and Unasyn for now. Appreciate therapy recommendations. 09/16: Consult note of Dr. Aranda reviewed. 09/17: Patient complained of pain in the feet. Started on oxycodone. 09/18: Pain is controlled. Discussed the side effects of oxycodone including constipation. On bowel regimen 2. Poorly controlled type 2 diabetes mellitus with severe hyperglycemia, diabetic neuropathy ? Blood glucose 501 on admit. Last A1c 10.9% in July, repeat A1c ordered. Nonadherent to home oral diabetes medications. No evidence of DKA on admit. Started on Lantus 15 units twice daily and Humalog 8 units with meals plus sliding scale insulin while inpatient, adjust as needed.Continue home gabapentin. Hold home oral medications. 09/16: Glucose is high, uncontrolled 231 to 374. A1c 10.6%. Beta-hydroxybutyrate 0. Lactic acid 1.8. Anion gap normal. Venous pH 7.34, mixed pCO2 53, bicarb 29. DKA ruled out. 09/17: Glucose is 256. Gradually titrate up the insulin dose. 09/18: Glucose is still high, 322 in BMP. Humalog and Lantus insulin dose increased with holding parameters. Hypoglycemia protocol. 3. Poor social situation with homelessness and medication nonadherence ? Case management/social work consulted. Patient is homeless and reports nonadherence to all home medications for 1 to 2 months due to running out of them. Appreciate case management and social work assistance. 4. Concern for new onset CHF in setting of hypertension, hyperlipidemia, paroxysmal A-fib/flutter ? Patient with mild volume overload noted on admit with lower extremity edema and mild abdominal distention. BNP elevated at 2086. Was started on Lasix 20 mg IV twice daily. 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 Continue home Eliquis statin and Coreg. Hold lisinopril, HCTZ and clonidine for now. 09/16: 2D echo shows EF 55 to 60%. No significant valvular abnormality. Normal LV systolic function 5. IVANA ? Creatinine 1.34 on admit, baseline around 0.7. Suspect secondary to mild CHF exacerbation as above. Treated with IV Lasix as above, follow-up BMP and urine output. 09/16: Creatinine 0.71, BUN 14. Hold HCTZ as patient on Lasix. Resume lisinopril from tomorrow a.m. 09/18: Creatinine 0.62. On lisinopril. 6. Anxiety/depression ? Continue home fluoxetine. 7. Class III obesity ? BMI 41 on admit. Complicates hospital course, care and prognosis. 8. Recent history of alcohol abuse ? Patient hospitalized in March and July of this year for alcohol detox. Reports that he has been sober since July. Alcohol level ordered. Case management consulted as above for resources if needed. Encouraged continued cessation. Will hold on CIWA protocol at this time. 9. Tobacco abuse ? Reports smoking 0.5-1 packs of cigarettes per day. Nicotine patch in place per patient request. Discussed cessation of discharge. DVT prophylaxis: Not indicated, on Eliquis CODE STATUS: Full code, verified Laboratory Results 09/17/24 16:34: POC Glucose 328 H 09/17/24 17:07: Vancomycin Trough 18.0 H 09/17/24 23:29: POC Glucose 347 H 09/18/24 05:50: WBC 6.4, RBC 3.87 L, Hgb 12.3 L, Hct 36.0 L, MCV 93.0, MCH 31.8, MCHC 34.2, RDW Std Deviation 47.1 H, RDW Coeff of Rachel 13.7, Plt Count 228, MPV 9.8, Immature Gran % (Auto) 0.600, Neut % (Auto) 58.8, Lymph % (Auto) 25.2, [place] % (Auto) 11.7 H, Eos % (Auto) 3.1, Baso % (Auto) 0.6, Absolute Neuts (auto) 3.7, Absolute Lymphs (auto) 1.60, Nucleated RBC % 0, Sodium 133, Potassium 3.7, Chloride 100, Carbon Dioxide 23.3, Anion Gap 9, BUN 18, Creatinine 0.62 L, Estim Creat Clear Calc 230.81, Est GFR (MDRD) Non-Af 116, BUN/Creatinine Ratio 28.8 H, Glucose 322 H, Calcium 8.4 09/18/24 08:04: POC Glucose 362 H Clinical Impression(s) from Imaging Studies Venous Doppler Study 09/15/24 14:28 Interpretation Summary Deep veins of the left lower extremity are patent and compressible segmentally. There is no evidence of left lower extremity deep vein thrombosis. The left great saphenous vein appears patent and compressible segmentally. Ordering Physician: Giovany Valdez Performed By: Maria Dolores Aaron, RVT Chest X-Ray 09/15/24 15:03 IMPRESSION: No acute pulmonary process Reading Location: [facility] Foot X-Ray 09/15/24 15:03 IMPRESSION: No more than minimal degenerative changes are seen. No osseous destructive changes evident. No cortical or periosteal abnormality is seen to suggest the presence of osteomyelitis. Satisfactory osseous alignment is present. No fracture or dislocation is seen. Reading Location: [facility] Echocardiogram 09/15/24 16:57 Interpretation Summary The estimated ejection fraction is 55???60 %. Normal LV systolic function No significant valvular abnormality Contrast echo using Definity. No prior echo to compare Ordering Physician: Dg Fox Referring Physician: ISAIAS PCP Performed By: Lashae Mesa and Student Charges/Coding Visit Charges Inpatient E&M: 60989 Subs Hosp L2
[2024-09-18] MEDS: Senna/Docusate Sodium 1 Tablet 2 TABLET PO (11:53)
[2024-09-18] MEDS: 0.9% Saline Lock 10 ML Syringe IV ×2 (11:54→17:55)
[2024-09-18 16:30] VITALS: BP 141/74; PULSE 62; RESP 16; TEMP 36.4; O2SAT 95
[2024-09-18 21:25] VITALS: BP 150/83; PULSE 64; RESP 18; TEMP 36.1; O2SAT 99
[2024-09-19] MEDS: Ampicillin/Sulbactam 3 GM in 0.9% Normal Saline (100mL MB+) 100 ML IV ×5 (00:03→23:14)
[2024-09-19 05:45] VITALS: BP 149/83; PULSE 71; RESP 18; TEMP 36.6; O2SAT 96
[2024-09-19 05:51] LABS: Hematocrit 35.8 % (40-54); Hemoglobin 12.4 g/dL (13.0-16.5); Immature Granulocytes Count 0.070 X10^3/uL (0.0-0.0); Mean Corp Hgb Conc 34.6 g/dL (32-36); Mean Corpuscular Volume 92.0 fL (80-94); Mean Platelet Vol. 9.7 fl (6.2-12.0); NRBC Flagged by Analyzer 0 % (0-5); Platelet Count 259 K/mm3 (150-450); RBC Distribution Width CV 13.6 % (11.6-14.6); RBC Distribution Width SD 46.3 fl (35.1-43.9); Red Blood Count 3.89 M/mm3 (4.6-6.2); White Blood Count 8.8 K/mm3 (4.4-11.0)
[2024-09-19 06:13] LABS: Anion Gap 11 (5-15); BUN 14 mg/dL (4-19); BUN/Creat Ratio 21.5 RATIO (10-20); Calcium,Total 8.6 mg/dL (7.6-11.0); Carbon Dioxide 23.9 mmol/L (21.0-32.0); Chloride 98 mmol/L (98-108); Estimated Creatinine Clearance 223.59 ml/min (50-250); Glucose 341 mg/dL (70-99); Potassium 3.7 mmol/L (3.3-5.1)
[2024-09-19 09:01] VITALS: BP 166/100; PULSE 77; RESP 18; TEMP 36.3; O2SAT 100
[2024-09-19] MEDS: Polyethylene Glycol 3350 17 GM PACKET PO (09:05)
[2024-09-19] MEDS: APIXABAN 5 MG TABLET PO ×2 (09:05→21:35)
[2024-09-19] MEDS: 0.9% Saline Lock 10 ML Syringe IV ×2 (09:05→23:14)
[2024-09-19] MEDS: Senna/Docusate Sodium 1 Tablet 2 TABLET PO (09:10)
[2024-09-19] MEDS: BACITRACIN 15 GM Tube 1 APPLIC TOPICAL ×2 (09:14→21:36)
[2024-09-19] MEDS: Insulin Glargine-YFGN 100 UNIT/ML Pen 30 UNIT SC (09:17)
--- NOTE | 2024-09-19 10:04 | PN.SURG_ITS ---
Subjective Subjective Mr. Martinez is a 49-year-old diabetic male seen at bedside today for bilateral dressing change as well as evaluation. Patient still admits to some burning and shooting pains to the bilateral lower extremity but is relating this more to his neuropathy. He has been compliant with dressing changes left clean dry and intact. He admits that the proximal dressing has fallen down a little bit due to improved swelling. No events overnight. No constitutional symptoms. No other pedal complaints at this time. Objective Data Objective Data Vital Signs: Vital Signs Temp Pulse Resp BP Pulse Ox O2 Del Method 97.3 F L 77 18 166/100 H 100 Room Air 09/19/24 09:01 09/19/24 09:01 09/19/24 09:01 09/19/24 09:01 09/19/24 09:01 09/19/24 09:01 Oxygen Delivery Method Room Air Weight: 169.8 kg Body Mass Index (BMI) 50.8 Intake & Output: Intake and Output for Last 24 Hours 09/17/24 09/18/24 09/19/24 23:59 23:59 23:59 Intake Total 3287 / 3287 2690 / 3130 1115 / 1115 Output Total 2780 / 2780 2125 / 3825 3100 / 3100 Balance 507 / 507 565 / -695 -1984 / Lab / Micro Data 09/19/24 04:30 09/19/24 04:30 Labs: Laboratory Results - last 24 hr 09/18/24 12:09: POC Glucose 260 H 09/18/24 16:50: POC Glucose 189 H 09/18/24 21:26: POC Glucose 358 H 09/19/24 04:30: WBC 8.8, RBC 3.89 L, Hgb 12.4 L, Hct 35.8 L, MCV 92.0, MCH 31.9, MCHC 34.6, RDW Std Deviation 46.3 H, RDW Coeff of Rachel 13.6, Plt Count 259, MPV 9.7, Immature Gran % (Auto) 0.800, Neut % (Auto) 65.8, Lymph % (Auto) 20.9, Franklin % (Auto) 9.3, Eos % (Auto) 2.6, Baso % (Auto) 0.6, Absolute Neuts (auto) 5.8, Absolute Lymphs (auto) 1.83, Nucleated RBC % 0, Sodium 133, Potassium 3.7, Chloride 98, Carbon Dioxide 23.9, Anion Gap 11, BUN 14, Creatinine 0.64 L, Estim Creat Clear Calc 223.59, Est GFR (MDRD) Non-Af 116, BUN/Creatinine Ratio 21.5 H, Glucose 341 H, Calcium 8.6 09/19/24 08:11: POC Glucose 309 H Radiography Diagnostic Testing: Radiology Impression Echocardiogram 09/15/24 16:57 Interpretation Summary The estimated ejection fraction is 55???60 %. Normal LV systolic function No significant valvular abnormality Contrast echo using Definity. No prior echo to compare Ordering Physician: Dg Fox Referring Physician: ISAIAS PCP Performed By: Lashae Mesa and Student Social Homelessness:: Sheltered Physical Exam Narrative Vascular: DP and PT pulse are palpable to the bilateral extremity. Blanchable erythema to the left lower extremity and improving. +1 pitting edema appreciated bilateral lower extremity. Skin temperature is warm to warm from proximal ankles to distal digits bilateral. No focal increase is appreciated. Neurological: Light touch is intact. Protective station is absent. Patient does not respond to painful stimuli. Dermatological: Evidence of full-thickness wound to the right plantar foot subfifth metatarsal head measuring 1.8 x 2.0 x 0.2 cm. Wound base is granular with sanguinous drainage. No concern for infection. Evidence of full-thickness wound to the left medial heel measuring 0.8 x 1.1 x 0.1 cm. Wound base is fibrogranular in nature with no sign of infection. Evidence of full-thickness wound to the plantar foot at the level of the subfourth and fifth metatarsal head measuring 4.6 x 4.7 x 0.1 cm. Wound base is granular with sanguinous drainage. No sign of infection. Excisional debridement down to including subcutaneous tissue fascia and muscle of the right plantar foot full-thickness wound with a #15 blade and sterile pickups done without incident. Predebridement measurement was eschar. Postdebridement measurement is 1.8 x 2.0 x 0.2 cm. Excisional debridement down to including subcutaneous tissue fascia and muscle of the left medial heel full-thickness wound with a #15 blade and sterile pickup done without incident. Predebridement measurement was eschar. Postdebridement measurement 0.8 by is 1.1 x 0.1 cm. Excisional debridement down to including subcutaneous tissue fascia and muscle of the left plantar foot full-thickness wound with a #15 blade and sterile pickup done without incident. Predebridement measurement was eschar. Postdebridement was 4.6 x 4.7 x 0.1 cm. Musculoskeletal: No pain to palpation of full-thickness wounds of bilateral extremity. No pain with calf pressure. Assessment & Plan Assessment/Plan (1) Non-pressure chronic ulcer of other part of left foot with necrosis of muscle: PLAN: Patient was examined and evaluated. All findings were discussed with the patient. All questions were answered to the patient's satisfaction. After physical examination the patient is showing evidence of improved bilateral leg swelling with multilayer compression wrap donned to the bilateral lower extremity. I performed excisional debridement at bedside of the full-thickness wounds for culture prior to the patient's discharge. Recommend sending the patient to SNF on oral broad-spectrum antibiotic. I will readjust antibiotics as needed once cultures return. Excisional debridement down to including subcutaneous tissue fascia and muscle of the right plantar foot full-thickness wound with a #15 blade and sterile pickups done without incident. Predebridement measurement was eschar. Postdebridement measurement is 1.8 x 2.0 x 0.2 cm. Excisional debridement down to including subcutaneous tissue fascia and muscle of the left medial heel full-thickness wound with a #15 blade and sterile pickup done without incident. Predebridement measurement was eschar. Postdebridement measurement 0.8 by is 1.1 x 0.1 cm. Excisional debridement down to including subcutaneous tissue fascia and muscle of the left plantar foot full-thickness wound with a #15 blade and sterile pickup done without incident. Predebridement measurement was eschar. Postdebridement was 4.6 x 4.7 x 0.1 cm. The bilateral lower extremity were wiped clean and patted dry. Cultures were taken from the plantar full-thickness wounds and sent off for microbiology culture and sensitivity. Will adjust antibiotics as needed. The full-thickness wounds were dressed with Aquacel Ag, dry sterile dressing and a single-layer Mittal compression bandage were donned to the by the lower extremity. Please change daily and or before the patient discharges. Dressing change orders are in the patient's discharge. Wound culture: Pending Medicine: On board, medical management Podiatry will continue to follow the patient while in house but from a distance. Please reach out to Dr. Dubois with any questions or concerns. Dr. Carter will be taking over call on 09/20/2024. I will be reachable via cell phone as I will be out of the country for the next 7 days starting 09/20/2024. Thank you for letting me be involved in patient care. (2) Non-pressure chronic ulcer of other part of right foot with necrosis of muscle: (3) Other specified peripheral vascular diseases: (4) Acute painful diabetic polyneuropathy:
[2024-09-19 13:19] LABS: Staph aureus DNA By PCR POSITIVE (Negative)
--- NOTE | 2024-09-19 14:28 | PN.HOSP_ITS ---
Reason for Visit Reason for Visit: Diagnoses Tinea unguium (09/15/24) Type 2 diabetes mellitus with diabetic polyneuropathy (09/15/24) Other specified peripheral vascular diseases (09/15/24) Cellulitis of left lower limb (09/15/24) Non-pressure chronic ulcer of other part of right foot with fat layer exposed (09/15/24) Non-pressure chronic ulcer of other part of right foot with necrosis of muscle (09/15/24) Non-pressure chronic ulcer of other part of left foot with fat layer exposed (09/15/24) Non-pressure chronic ulcer of other part of left foot with necrosis of muscle (09/15/24) Pain in left leg (09/15/24) Pain in right toe(s) (09/15/24) Pain in left toe(s) (09/15/24) Edema, unspecified (09/15/24) Blister (nonthermal), left foot, initial encounter (09/15/24) Objective Data Objective Data Vital Signs: Vital Signs Temp Pulse Resp BP Pulse Ox O2 Del Method 97.3 F L 77 18 166/100 H 100 Room Air 09/19/24 09:01 09/19/24 09:01 09/19/24 09:01 09/19/24 09:01 09/19/24 09:01 09/19/24 09:01 Oxygen Delivery Method Room Air Weight: 374 lb 5.518 oz Body Mass Index (BMI) 50.8 Intake & Output: Intake and Output for Last 24 Hours 09/17/24 09/18/24 09/19/24 23:59 23:59 23:59 Intake Total 3287 / 3287 2690 / 3130 1575 / 1575 Output Total 2780 / 2780 2125 / 3825 4000 / 4000 Balance 507 / 507 565 / -695 -2425 / -2425 Lab / Micro Data 09/19/24 04:30 09/19/24 04:30 Labs: Laboratory Results - last 24 hr 09/18/24 16:50: POC Glucose 189 H 09/18/24 21:26: POC Glucose 358 H 09/19/24 04:30: WBC 8.8, RBC 3.89 L, Hgb 12.4 L, Hct 35.8 L, MCV 92.0, MCH 31.9, MCHC 34.6, RDW Std Deviation 46.3 H, RDW Coeff of Rachel 13.6, Plt Count 259, MPV 9.7, Immature Gran % (Auto) 0.800, Neut % (Auto) 65.8, Lymph % (Auto) 20.9, Weston % (Auto) 9.3, Eos % (Auto) 2.6, Baso % (Auto) 0.6, Absolute Neuts (auto) 5.8, Absolute Lymphs (auto) 1.83, Nucleated RBC % 0, Sodium 133, Potassium 3.7, Chloride 98, Carbon Dioxide 23.9, Anion Gap 11, BUN 14, Creatinine 0.64 L, Estim Creat Clear Calc 223.59, Est GFR (MDRD) Non-Af 116, BUN/Creatinine Ratio 21.5 H, Glucose 341 H, Calcium 8.6 09/19/24 08:11: POC Glucose 309 H 09/19/24 11:15: S.aureus Protein A PCR POSITIVE H, MRSA (PCR) POSITIVE H 09/19/24 11:29: POC Glucose 256 H Social Homelessness:: Sheltered Physical Exam Narrative Seen and examined. Patient complaining of sometimes sharp pain, paresthesia mainly on movement. It is better than yesterday. BP and glucose are elevated but getting controlled. Seen by hollow tile partition erector with bedside dressing and debridement Patient is homeless. Was not checking glucose or insulin at home. High glucose here and A1c on admission. Admitted with bilateral heel ulcer left foot worse than right foot. No fever. Has bilateral knee diabetic neuropathy with paresthesia. Denies any CAD, cardiac stent or PAD or history of lower extremity angiogram/angioplasty/stent. Physical exam General: Alert, Oriented x3, Cooperative HEENT: Atraumatic, PERRLA, EOMI, Normocephalic. Oral: No Gingival or Mucosal Lesions/ Ulcerations Neck: Supple, No JVD, Negative Carotid Bruits Chest wall/Lungs: Air entry diminished in bilateral lung bases. No crepitation/rhonchi Cardiovascular: Regular rate and rhythm, No M/G/R. DP and PT pulses faintly palpable Abdomen: Bowel Sounds Present, Soft, Non Tender, Non-Distended : No dysuria. No renal angle tenderness. No suprapubic tenderness. Extremities: Bilateral feet edema left more than right, Capillary Refill Less than 3 Seconds Skin: Ulcer over plantar aspect of 4th and 5th metatarsal head on left foot and right lateral margin.. Dry eschar over the ulcer. No drainage. Musculoskeletal: No Tenderness to Palpation of Joints or Extremities Neurological: Cranial nerves II-XII grossly intact, DTR 2+/4. No acute focal neurological deficit. Psych/Mental Status: Flat affect Assessment & Plan Assessment/Plan (1) Cellulitis of left leg: PLAN: Plan Patient is a 48-year-old male who presented to [facility] ED on 09/15/2024 with worsening left lower leg swelling with left foot wound with increased redness and worsening pain on left lower extremity for last 4 days after he bumped his foot a week ago. 1. Left lower extremity cellulitis, most likely polymicrobial including MRSA complicated with left plantar ulcer with stable full-thickness wound with dry eschar on both feet and stable blister to the left medial heel with bilateral leg swelling on superimposed diabetic neuropathy ? Admit under inpatient status to PCU. Podiatry and wound care consulted. PT/OT/case management consulted. Podiatry evaluated the patient this evening; foot x-rays with no evidence of osteomyelitis and bilateral foot wounds appear stable with dry eschar. Podiatry recommended conservative management with IV antibiotics and appropriate wound care, no need for surgical intervention at this time. Will treat with IV vancomycin and Unasyn for now. Appreciate therapy recommendations. 09/16: Consult note of Dr. Aranda reviewed. 09/17: Patient complained of pain in the feet. Started on oxycodone. 09/18: Pain is controlled. Discussed the side effects of oxycodone including constipation. On bowel regimen 09/19: Discussed with hollow tile partition erector. Pain is controlled. Wound culture was sent and pending. MRSA PCR positive. Patient was on vancomycin. Doxycycline started 2. Poorly controlled type 2 diabetes mellitus with severe hyperglycemia, diabetic neuropathy ? Blood glucose 501 on admit. Last A1c 10.9% in July, repeat A1c ordered. Nonadherent to home oral diabetes medications. No evidence of DKA on admit. Started on Lantus 15 units twice daily and Humalog 8 units with meals plus sliding scale insulin while inpatient, adjust as needed.Continue home gabapentin. Hold home oral medications. 09/16: Glucose is high, uncontrolled 231 to 374. A1c 10.6%. Beta-hydroxybutyrate 0. Lactic acid 1.8. Anion gap normal. Venous pH 7.34, mixed pCO2 53, bicarb 29. DKA ruled out. 09/17: Glucose is 256. Gradually titrate up the insulin dose. 09/18: Glucose is still high, 322 in BMP. Humalog and Lantus insulin dose increased with holding parameters. Hypoglycemia protocol. 09/19: Glucose is about 250. Gradually increasing the dose of Lantus and Humalog insulin. On hypoglycemia protocol. 3. Poor social situation with homelessness and medication nonadherence ? Case management/social work consulted. Patient is homeless and reports nonadherence to all home medications for 1 to 2 months due to running out of them. Appreciate case management and social work assistance. 4. Concern for new onset CHF in setting of hypertension, hyperlipidemia, paroxysmal A-fib/flutter ? Patient with mild volume overload noted on admit with lower extremity edema and mild abdominal distention. BNP elevated at 2086. Was started on Lasix 20 mg IV twice daily. front desk monitor NSR. Continue home Eliquis statin and Coreg. Hold lisinopril, HCTZ and clonidine for now. 09/16: 2D echo shows EF 55 to 60%. No significant valvular abnormality. Normal LV systolic function 5. IVANA ? Creatinine 1.34 on admit, baseline around 0.7. Suspect secondary to mild CHF exacerbation as above. Treated with IV Lasix as above, follow-up BMP and urine output. 09/16: Creatinine 0.71, BUN 14. Hold HCTZ as patient on Lasix. Resume lisinopril from tomorrow a.m. 09/18: Creatinine 0.62. On lisinopril. 09/19: HCTZ low doses started. Monitor kidney function. 6. Anxiety/depression ? Continue home fluoxetine. 7. Class III obesity ? BMI 41 on admit. Complicates hospital course, care and prognosis. 8. Recent history of alcohol abuse ? Patient hospitalized in March and July of this year for alcohol detox. Reports that he has been sober since July. Alcohol level ordered. Case management consulted as above for resources if needed. Encouraged continued cessation. Will hold on CIWA protocol at this time. 9. Tobacco abuse ? Reports smoking 0.5-1 packs of cigarettes per day. Nicotine patch in place per patient request. Discussed cessation of discharge. 10. Labile hypertension: Blood pressure profile shows fluctuation between 118/69-1 166/100. At home patient on lisinopril hydrochlorothiazide, clonidine 0.1 mg twice daily, carvedilol 12.5 mg twice daily DVT prophylaxis: Not indicated, on Eliquis CODE STATUS: Full code, verified Laboratory Results 09/18/24 16:50: POC Glucose 189 H 09/18/24 21:26: POC Glucose 358 H 09/19/24 04:30: WBC 8.8, RBC 3.89 L, Hgb 12.4 L, Hct 35.8 L, MCV 92.0, MCH 31.9, MCHC 34.6, RDW Std Deviation 46.3 H, RDW Coeff of Rachel 13.6, Plt Count 259, MPV 9.7, Immature Gran % (Auto) 0.800, Neut % (Auto) 65.8, Lymph % (Auto) 20.9, Weston % (Auto) 9.3, Eos % (Auto) 2.6, Baso % (Auto) 0.6, Absolute Neuts (auto) 5.8, Absolute Lymphs (auto) 1.83, Nucleated RBC % 0, Sodium 133, Potassium 3.7, Chloride 98, Carbon Dioxide 23.9, Anion Gap 11, BUN 14, Creatinine 0.64 L, Estim Creat Clear Calc 223.59, Est GFR (MDRD) Non-Af 116, BUN/Creatinine Ratio 21.5 H, Glucose 341 H, Calcium 8.6 09/19/24 08:11: POC Glucose 309 H 09/19/24 11:15: S.aureus Protein A PCR POSITIVE H, MRSA (PCR) POSITIVE H 09/19/24 11:29: POC Glucose 256 H Clinical Impression(s) from Imaging Studies Venous Doppler Study 09/15/24 14:28 Interpretation Summary Deep veins of the left lower extremity are patent and compressible segmentally. There is no evidence of left lower extremity deep vein thrombosis. The left great saphenous vein appears patent and compressible segmentally. Ordering Physician: Giovany Valdez Performed By: Maria Dolores Aaron RVT Chest X-Ray 09/15/24 15:03 IMPRESSION: No acute pulmonary process Reading Location: [facility] Foot X-Ray 09/15/24 15:03 IMPRESSION: No more than minimal degenerative changes are seen. No osseous destructive changes evident. No cortical or periosteal abnormality is seen to suggest the presence of osteomyelitis. Satisfactory osseous alignment is present. No fracture or dislocation is seen. Reading Location: [place] [id number] Echocardiogram 09/15/24 16:57 Interpretation Summary The estimated ejection fraction is 55???60 %. Normal LV systolic function No significant valvular abnormality Contrast echo using Definity. No prior echo to compare Ordering Physician: Dg Fox Referring Physician: NO PCP Performed By: Lashae Mesa and Student Charges/Coding Visit Charges Inpatient E&M: 67108 Subs Hosp L2
[2024-09-19 15:21] VITALS: BP 147/65; PULSE 72; RESP 18; TEMP 36.6; O2SAT 100
[2024-09-19 21:20] VITALS: BP 160/85; PULSE 92; RESP 18; TEMP 36.1; O2SAT 95
[2024-09-19] MEDS: Insulin Glargine-YFGN 100 UNIT/ML Pen 35 UNIT SC (21:36)
[2024-09-20 03:04] VITALS: BMI 50.8
[2024-09-20] MEDS: Ampicillin/Sulbactam 3 GM in 0.9% Normal Saline (100mL MB+) 100 ML IV ×4 (04:48→23:16)
[2024-09-20 04:50] VITALS: BP 148/86; PULSE 68; RESP 18; TEMP 36.6; O2SAT 96
[2024-09-20 06:14] LABS: Hematocrit 36.3 % (40-54); Hemoglobin 12.6 g/dL (13.0-16.5); Immature Granulocytes Count 0.150 X10^3/uL (0.0-0.0); Mean Corp Hgb Conc 34.7 g/dL (32-36); Mean Corpuscular Volume 92.1 fL (80-94); Mean Platelet Vol. 9.3 fl (6.2-12.0); NRBC Flagged by Analyzer 0 % (0-5); Platelet Count 297 K/mm3 (150-450); RBC Distribution Width CV 13.2 % (11.6-14.6); RBC Distribution Width SD 45.1 fl (35.1-43.9); Red Blood Count 3.94 M/mm3 (4.6-6.2); White Blood Count 10.5 K/mm3 (4.4-11.0)
[2024-09-20 06:56] LABS: Anion Gap 9 (5-15); BUN 10 mg/dL (4-19); BUN/Creat Ratio 14.2 RATIO (10-20); Calcium,Total 8.7 mg/dL (7.6-11.0); Carbon Dioxide 24.3 mmol/L (21.0-32.0); Chloride 98 mmol/L (98-108); Estimated Creatinine Clearance 201.69 ml/min (50-250); Glucose 314 mg/dL (70-99); Potassium 3.8 mmol/L (3.3-5.1)
--- NOTE | 2024-09-20 07:26 | PCM.PN.HOSP ---
Reason for Visit Reason for Visit: Diagnoses Tinea unguium (09/15/24) Type 2 diabetes mellitus with diabetic polyneuropathy (09/15/24) Other specified peripheral vascular diseases (09/15/24) Cellulitis of left lower limb (09/15/24) Non-pressure chronic ulcer of other part of right foot with fat layer exposed (09/15/24) Non-pressure chronic ulcer of other part of right foot with necrosis of muscle (09/15/24) Non-pressure chronic ulcer of other part of left foot with fat layer exposed (09/15/24) Non-pressure chronic ulcer of other part of left foot with necrosis of muscle (09/15/24) Pain in left leg (09/15/24) Pain in right toe(s) (09/15/24) Pain in left toe(s) (09/15/24) Edema, unspecified (09/15/24) Blister (nonthermal), left foot, initial encounter (09/15/24) Subjective Subjective Patient with no acute events overnight per self and per nursing report. He does report ongoing generalized aches and pains including his bilateral lower extremities. He does admit also burning sensation and radicular type pain as well. Discussed plan of care which included transition to skilled facility once bed is obtained. Discussed importance of establishing with primary care physician and gave several local options but he notes intention to transition to skilled facility in [place] and will further investigate and make his own plans. Patient denies fevers, chills, nausea, emesis, abdominal pain, chest pain or dyspnea. Objective Data Objective Data Vital Signs: Vital Signs Temp Pulse Resp BP Pulse Ox O2 Del Method 97.8 F 68 18 148/86 H 96 Room Air 09/20/24 04:50 09/20/24 04:50 09/20/24 04:50 09/20/24 04:50 09/20/24 04:50 09/19/24 21:20 Oxygen Delivery Method Room Air Weight: 374 lb 12.573 oz Body Mass Index (BMI) 50.8 Intake & Output: Intake and Output for Last 24 Hours 09/18/24 09/19/24 09/20/24 23:59 23:59 23:59 Intake Total 2690 / 3130 2004 720 / 720 Output Total 2125 / 3825 6800 / 6800 800 / 800 Balance 565 / -695 -4795 / -4795 -80 / -80 Lab / Micro Data 09/20/24 06:00 09/20/24 06:00 Labs: Laboratory Results - last 24 hr 09/19/24 08:11: POC Glucose 309 H 09/19/24 11:15: S.aureus Protein A PCR POSITIVE H, MRSA (PCR) POSITIVE H 09/19/24 11:29: POC Glucose 256 H 09/19/24 16:48: POC Glucose 238 H 09/19/24 21:31: POC Glucose 331 H 09/20/24 06:00: WBC 10.5, RBC 3.94 L, Hgb 12.6 L, Hct 36.3 L, MCV 92.1, MCH 32.0, MCHC 34.7, RDW Std Deviation 45.1 H, RDW Coeff of Rachel 13.2, Plt Count 297, MPV 9.3, Immature Gran % (Auto) 1.400 H, Neut % (Auto) 66.9, Lymph % (Auto) 20.6, [place] % (Auto) 8.3, Eos % (Auto) 2.3, Baso % (Auto) 0.5, Absolute Neuts (auto) 7.0, Absolute Lymphs (auto) 2.16, Nucleated RBC % 0, Sodium 132 L, Potassium 3.8, Chloride 98, Carbon Dioxide 24.3, Anion Gap 9, BUN 10, Creatinine 0.71, Estim Creat Clear Calc 201.69, Est GFR (MDRD) Non-Af 112, BUN/Creatinine Ratio 14.2, Glucose 314 H, Calcium 8.7 Social Homelessness:: Sheltered Physical Exam Narrative Physical Examination: General: Awake, alert, oriented x 3 and cooperative, seated upright in the PCU bed, notes ongoing diffuse generalized discomfort and aches and pains in his joints as well as bilateral lower extremity. Skin: Normal color, normal turgor, no icterus, no cyanosis except occasional stage ecchymoses, abrasions, bilateral lower extremity dressings in place with no drainage. HEENT: AT/NC, EOMI, PERRLA, MMM. Lungs: CTA bilaterally, moderate effort, mild decrease BL bases, no rales, ronchi or wheezing. Heart: Regular rate and rhythm; no gallop, rub audible. Abdomen: Soft, morbidly obese, NTTP, ND, distant normal BS. Extremities: No cyanosis, no clubbing, see skin, bilateral lower extremity distal 1+ edema. Neurological: Patient awake, alert, oriented as noted, cognitive function intact; pupils equally reactive to light and accommodation, cranial nerves grossly normal, moving all 4 extremities although somewhat limited bilateral lower extremity secondary to discomfort and dressings, strength moderately to severely globally creased Psychiatric: Affect appears normal, no acute evidence of depressive or anxiety feelings. Assessment & Plan Assessment/Plan (1) Cellulitis of left leg: (2) Hyperglycemia due to diabetes mellitus: PLAN: Plan The patient is a 49 y/o M w/ PMHx: Morbid obesity, HTN, HLD, Tobacco use, Diabetes mellitus type II, Homesslessness status w/ medication noncompliant with chronic bilateral lower extremity diabetic wounds/ulcers who presents to [facility] ED on 09/15/2024 with worsening left lower extremity swelling and foot wound. #1. Left lower extremity cellulitis, polymicrobial, MRSA screen positive, awaiting bedside debridement cultures, complicated by left plantar ulcer with full-thickness wound with dry eschar to bilateral lower extremity as well as stable blister to left medial heel and bilateral lower extremity edema superimposed with diabetic chronic neuropathy: Patient admitted initially to PCU status, given stable status have assured de-escalation to standard care, DVT ultrasound 09/15/2024 negative, plain film of the foot 09/15/2024 with no acute findings, maintained on IV Unasyn and IV vancomycin initially-->transitioned to oral doxycycline and IV Unasyn, podiatry consulted and following in addition to infectious disease, bedside excisional debridement performed per podiatry up specifically to full-thickness wounds with culture obtained, will continue dressings with Aquacel Ag, topical bacitracin, sterile dry dressing as well as a single-layer Mittal compression bandage to the left lower extremity to be done daily per podiatry recommendation, continue offloading, will increase gabapentin given patient ongoing complaints of pain, continue oral as needed narcotic regimen, awaiting infectious disease input for antibiotic therapy narrowing/alteration, wound RN consulted. PT/OT/case management consulted with planned skilled facility placement once precertification is obtained. #2. Diabetes mellitus type II, uncontrolled with chronic diabetic neuropathy: Presentation HgbA1c on 09/15/2024 10.6%, previous to this 08/05/2019 5.1 A1c 10.9%, initiated on aggressive twice daily long-acting insulin as well as short acting insulin, ADA diet, accu checks w/ ISS, nutrition consulted and following. Long-acting insulin and short acting has been adjusted over time during admission with improvement of blood sugars. Given ongoing pain increased gabapentin regimen. #3. Questionable onset overload, possibly HFpEF: 09/16/2024 echocardiogram with EF 55 to 60% with no significant valvular abnormality with normal LV systolic function, concern initially for mild overload with lower extremity swelling, BNP elevated 2085, initiated on Lasix 20 mg IV twice daily eventually transitioned to hydrochlorothiazide, will continue Eliquis, statin, Coreg, lisinopril home regimen in addition to diuretic as noted. Monitor for overload. #4. Homelessness, medication nonadherence: Patient homeless and nonadherent with medication for at least 1 to 2 months secondary to running out of them, patient significantly high risk for nonadherence to treatment with subsequent and increased risk for complications and readmission, at this time plan for transition to group home facility, case management consulted. #5. Hypertension: Continue home regimen including Coreg, clonidine, hydrochlorothiazide, lisinopril, PRN hydralazine. #6. Hyperlipidemia: Will continue patient on statin therapy. #7. Tobacco Abuse: Encouraged cessation, inpatient consultation per RT, NR if desired. #8. Morbid Obesity: Weight loss and lifestyle changes encouraged, nutrition consulted. #9. DVT prophylaxis: Continued on patient home Eliquis regimen. Charges/Coding Visit Charges Inpatient E&M: 37947 Subs Hosp L2
[2024-09-20 08:10] VITALS: BP 136/80; PULSE 65; RESP 16; TEMP 36.4; O2SAT 97
[2024-09-20] MEDS: APIXABAN 5 MG TABLET PO ×2 (08:23→21:48)
[2024-09-20] MEDS: BACITRACIN 15 GM Tube 1 APPLIC TOPICAL ×2 (08:25→21:47)
[2024-09-20] MEDS: 0.9% Saline Lock 10 ML Syringe IV (08:33)
--- NOTE | 2024-09-20 09:17 | CASEMGMT ---
Discharge Planning Updates sent to [facility]. Precert remains pending. Huma Hobbs DC Planning Asst.
--- NOTE | 2024-09-20 09:17 | CASEMGMT ---
Discharge Planning Updates sent to [facility]. Precert remains pending. Huma Hobbs DC Planning Asst.
[2024-09-20] MEDS: Insulin Glargine-YFGN 100 UNIT/ML Pen 35 UNIT SC ×2 (09:20→21:52)
--- NOTE | 2024-09-20 15:02 | CASEMGMT ---
Social Work SW let pt know that we are still waiting to hear from insurance regarding SNF placement, and once we hear back SW will let pt know. Pt states understanding, still in agreement for [facility] at d/c. SW will continue to follow. BABAR Penny
[2024-09-20 17:17] VITALS: BP 144/85; PULSE 67; RESP 16; TEMP 36.4; O2SAT 97
--- NOTE | 2024-09-20 17:38 | PCM.CONS.GEN ---
Assessment & Plan Assessment/Plan (1) Non-pressure chronic ulcer of other part of right foot with necrosis of muscle: PLAN: Bilat foot infected wounds. Overall improving. Plan for discharge will be one more week po doxy and augmentin. Will follow, thank you (2) Non-pressure chronic ulcer of other part of left foot with necrosis of muscle: (3) Acute painful diabetic polyneuropathy: HPI Consult Data Date of Consult: 09/20/24 HPI Narrative Reason for Consultation: foot infection HPI Narrative: SUKHWINDER MEYER, is a 49 M with DM neuropathy, presented with about 10 days progressive bilat foot redness, swelling, pain, and blistering. Left is worse than R. No fever or chills, no recent abx. Came to ED, admitted on vanc/unasyn. Seen by Dr. Dubois with podiatry. Narrowed to doxy and unasyn. Feeling better, feet improved. Full ROS performed and neg except as noted above. [facility] Medical History Anxiety Depression Smoker Congestive heart failure (CHF) Hypertension Morbid obesity with BMI of 40.0-44.9, adult Homeless single person Tobacco abuse Medical non-compliance Diabetes mellitus, type 2 Cannabis abuse Acute alcohol intoxication Allergic rhinitis Anxiety and depression Chronic pain Kidney stones Desire for detoxification Alcohol abuse Restless legs Hypertension Tobacco use Alcohol abuse Degeneration of spine PTSD (post-traumatic stress disorder) Diabetes Asthma Home Medications ?Medication ?Instructions ?Recorded ?Last Taken ?Type albuterol sulfate 90 mcg/actuation 1 puff inhalation Q4H PRN PRN 11/10/23 Unknown History aerosol inhaler wheezing apixaban 5 mg tablet (Eliquis) 5 mg PO BID 11/10/23 Unknown History atorvastatin 10 mg tablet 10 mg PO DAILY cholestrol 11/10/23 Unknown History carvedilol 25 mg tablet 12.5 mg PO BID heart rate 11/10/23 Unknown History fluoxetine 60 mg tablet 60 mg PO DAILY mood 11/10/23 Unknown History glipizide 2.5 mg tablet, extended 2.5 mg PO DAILY blood glucose 11/10/23 Unknown History release 24 hr lisinopril 10 1 tab PO DAILY bp 11/10/23 Unknown History mg-hydrochlorothiazide 12.5 mg tablet meloxicam 15 mg tablet 15 mg PO DAILY pain 11/10/23 Unknown History metformin 1,000 mg tablet 1,000 mg PO BID blood glucose 11/10/23 Unknown History empagliflozin 25 mg tablet 25 mg PO DAILY blood glucose 03/26/24 Unknown History (Jardiance) gabapentin 300 mg capsule 300 mg PO TID neuropathy 03/26/24 Unknown History clonidine HCl 0.1 mg tablet 0.1 mg PO BID blood pressure 09/15/24 Unknown History amoxicillin 875 mg-potassium 1 tab PO BID #14 tabs 09/20/24 Unknown Rx clavulanate 125 mg tablet doxycycline monohydrate 100 mg 100 mg PO BID 7 days #14 caps 09/20/24 Unknown Rx capsule Allergy/AdvReac Type Severity Reaction Status Date / Time trazodone (trazamine) AdvReac Mild Other Verified 09/15/24 12:24 Family History Mother Stomach cancer Father No problems noted. Surgical History History of carpal tunnel surgery Social History household members: none housing: other details: Living in his vehicle. Smoking Status: Current every day smoker tobacco type: cigarettes alcohol intake: current alcohol intake frequency: 3 or more drinks per day details: 4-pints beer daily. substance use type: does not use Homelessness:: Sheltered Physical Exam Const alert, oriented x3 and no apparent distress General Appearance: cooperative HEENT normocephalic and head/scalp atraumatic Eyes PERRL and EOMs intact bilaterally Neck supple and No nodes Resp normal air movement and clear to auscultation bilaterally Cardio regular rate and regular rhythm GI soft to palpation, non-tender and non-distended Extremity General Extremity: edema Skin Skin Narrative: feet wrapped Neuro CN's II-XII intact bilaterally Lab / Micro Data Attestation: I reviewed the patient's lab results. 09/20/24 06:00 09/20/24 06:00 Labs: Laboratory Results - last 24 hr 09/19/24 21:31: POC Glucose 331 H 09/20/24 06:00: WBC 10.5, RBC 3.94 L, Hgb 12.6 L, Hct 36.3 L, MCV 92.1, MCH 32.0, MCHC 34.7, RDW Std Deviation 45.1 H, RDW Coeff of Rachel 13.2, Plt Count 297, MPV 9.3, Immature Gran % (Auto) 1.400 H, Neut % (Auto) 66.9, Lymph % (Auto) 20.6, [place] % (Auto) 8.3, Eos % (Auto) 2.3, Baso % (Auto) 0.5, Absolute Neuts (auto) 7.0, Absolute Lymphs (auto) 2.16, Nucleated RBC % 0, Sodium 132 L, Potassium 3.8, Chloride 98, Carbon Dioxide 24.3, Anion Gap 9, BUN 10, Creatinine 0.71, Estim Creat Clear Calc 201.69, Est GFR (MDRD) Non-Af 112, BUN/Creatinine Ratio 14.2, Glucose 314 H, Calcium 8.7 09/20/24 08:05: POC Glucose 268 H 09/20/24 11:19: POC Glucose 213 H 09/20/24 15:46: POC Glucose 186 H Micro: Microbiology 09/19/24 11:15 Ulcer, Decubitus - Left Foot Gram Stain - Final 09/19/24 11:15 Ulcer, Decubitus - Left Foot Wound Culture - Preliminary Staphylococcus aureus Coag Negative Staph
[2024-09-20 21:44] VITALS: BP 125/71; PULSE 63; RESP 18; TEMP 36.1; O2SAT 97
[2024-09-20] MEDS: Senna/Docusate Sodium 1 Tablet 2 TABLET PO (21:49)
[2024-09-21 03:29] VITALS: BMI 51.2
[2024-09-21 04:17] VITALS: BP 138/64; PULSE 62; RESP 18; TEMP 35.8; O2SAT 98
[2024-09-21] MEDS: Ampicillin/Sulbactam 3 GM in 0.9% Normal Saline (100mL MB+) 100 ML IV ×4 (05:05→23:54)
[2024-09-21 06:08] LABS: Hematocrit 36.6 % (40-54); Hemoglobin 12.4 g/dL (13.0-16.5); Immature Granulocytes Count 0.190 X10^3/uL (0.0-0.0); Mean Corp Hgb Conc 33.9 g/dL (32-36); Mean Corpuscular Volume 93.1 fL (80-94); Mean Platelet Vol. 9.5 fl (6.2-12.0); NRBC Flagged by Analyzer 0 % (0-5); Platelet Count 300 K/mm3 (150-450); RBC Distribution Width CV 13.3 % (11.6-14.6); RBC Distribution Width SD 45.6 fl (35.1-43.9); Red Blood Count 3.93 M/mm3 (4.6-6.2); White Blood Count 9.6 K/mm3 (4.4-11.0)
[2024-09-21 07:06] LABS: AST(SGOT) 13 U/L (<=37); Alanine Aminotransfer ALT/SGPT 10 U/L (<=46); Albumin, Serum 2.9 g/dL (3.5-5.0); Alkaline Phosphatase 104 U/L (40-129); Anion Gap 9 (5-15); BUN 12 mg/dL (4-19); BUN/Creat Ratio 19.1 RATIO (10-20); Calcium,Total 9.0 mg/dL (7.6-11.0); Carbon Dioxide 26.0 mmol/L (21.0-32.0); Chloride 101 mmol/L (98-108); Estimated Creatinine Clearance 221.54 ml/min (50-250); Globulin 3.8 g/dL (2.2-4.2); Glucose 223 mg/dL (70-99); Potassium 3.9 mmol/L (3.3-5.1)
--- NOTE | 2024-09-21 07:07 | PN.HOSP_ITS ---
Reason for Visit Reason for Visit: Diagnoses Tinea unguium (09/15/24) Type 2 diabetes mellitus with diabetic polyneuropathy (09/15/24) Type 2 diabetes mellitus with hyperglycemia (09/15/24) Other specified peripheral vascular diseases (09/15/24) Cellulitis of left lower limb (09/15/24) Non-pressure chronic ulcer of other part of right foot with fat layer exposed (09/15/24) Non-pressure chronic ulcer of other part of right foot with necrosis of muscle (09/15/24) Non-pressure chronic ulcer of other part of left foot with fat layer exposed (09/15/24) Non-pressure chronic ulcer of other part of left foot with necrosis of muscle (09/15/24) Pain in left leg (09/15/24) Pain in right toe(s) (09/15/24) Pain in left toe(s) (09/15/24) Edema, unspecified (09/15/24) Blister (nonthermal), left foot, initial encounter (09/15/24) Subjective Subjective Patient with no acute events overnight per self and per nursing report. Patient notes that he has not been up as much but from discussion with case management/social work he has been declining physical therapy recently unfortunately. Strongly encouraged patient to continue moving in the room even if passive movement with therapies. Patient again complaining of diffuse generalized discomfort and discussed that getting up and moving would help with this. Noted to patient still awaiting precertification for skilled facility placement and that he is medically appropriate when granted. Discussed plan of care for transition to oral Augmentin and doxycycline for 1 additional week at discharge to skilled facility. Patient denies fevers, chills, nausea, emesis, abdominal pain, chest pain or dyspnea. Objective Data Objective Data Vital Signs: Vital Signs Temp Pulse Resp BP Pulse Ox O2 Del Method 96.5 F L 62 18 138/64 H 98 Room Air 09/21/24 04:17 09/21/24 04:17 09/21/24 04:17 09/21/24 04:17 09/21/24 04:17 09/21/24 04:17 Oxygen Delivery Method Room Air Weight: 378 lb 5.012 oz Body Mass Index (BMI) 51.2 Intake & Output: Intake and Output for Last 24 Hours 09/19/24 09/20/24 09/21/24 23:59 23:59 23:59 Intake Total 2004 1120 / 1120 100 / 100 Output Total 6800 / 6800 2275 / 2275 1000 / 1000 Balance -4795 / -4795 -1155 / -1155 -900 / -900 Lab / Micro Data 09/21/24 05:20 09/21/24 05:20 Labs: Laboratory Results - last 24 hr 09/20/24 08:05: POC Glucose 268 H 09/20/24 11:19: POC Glucose 213 H 09/20/24 15:46: POC Glucose 186 H 09/20/24 21:51: POC Glucose 296 H 09/21/24 05:20: WBC 9.6, RBC 3.93 L, Hgb 12.4 L, Hct 36.6 L, MCV 93.1, MCH 31.6, MCHC 33.9, RDW Std Deviation 45.6 H, RDW Coeff of Rachel 13.3, Plt Count 300, MPV 9.5, Immature Gran % (Auto) 2.000 H, Neut % (Auto) 62.4, Lymph % (Auto) 23.3, [place] % (Auto) 8.1, Eos % (Auto) 3.4, Baso % (Auto) 0.8, Absolute Neuts (auto) 6.0, Absolute Lymphs (auto) 2.24, Nucleated RBC % 0, Sodium 137, Potassium 3.9, Chloride 101, Carbon Dioxide 26.0, Anion Gap 9, BUN 12, Creatinine 0.65 L, Estim Creat Clear Calc 221.54, Est GFR (MDRD) Non-Af 115, BUN/Creatinine Ratio 19.1, G lucose 223 H, Calcium 9.0, Total Bilirubin 0.21, AST 13, ALT 10, Alkaline Phosphatase 104, Total Protein 6.7, Albumin 2.9 L, Globulin 3.8, A lbumin/Globulin Ratio 0.8 L Micro: Microbiology 09/19/24 11:15 Ulcer, Decubitus - Left Foot Gram Stain - Final 09/19/24 11:15 Ulcer, Decubitus - Left Foot Wound Culture - Preliminary Staphylococcus aureus Coag Negative Staph Social Homelessness:: Sheltered Physical Exam Narrative Physical Examination: General: Awake, alert, oriented x 3 and cooperative, seated upright in the PCU bedside chair, initially sleeping but awakens with discussion. Again notes generalized discomfort. Skin: Normal color, normal turgor, no icterus, no cyanosis except occasional stage ecchymoses, abrasions, bilateral lower extremity dressings in place with no drainage. HEENT: AT/NC, EOMI, PERRLA, MMM. Lungs: CTA bilaterally, moderate effort, mild decrease BL bases, no rales, ronchi or wheezing. Heart: Regular rate and rhythm; no gallop, rub audible. Abdomen: Soft, morbidly obese, NTTP, ND, distant normal BS. Extremities: No cyanosis, no clubbing, see skin, bilateral lower extremity distal 1-2+ edema. Neurological: Patient awake, alert, oriented as noted, cognitive function intact; pupils equally reactive to light and accommodation, cranial nerves grossly normal, moving all 4 extremities although somewhat limited bilateral lower extremity secondary to discomfort and dressings, strength moderately to severely globally creased Psychiatric: Affect appears initially fatigued but awakens and eventually discussions appropriate, normal, no acute evidence of depressive or anxiety feelings. Assessment & Plan Assessment/Plan (1) Cellulitis of left leg: (2) Hyperglycemia due to diabetes mellitus: PLAN: Plan The patient is a 49 y/o M w/ PMHx: Morbid obesity, HTN, HLD, Tobacco use, Diabetes mellitus type II, Homesslessness status w/ medication noncompliant with chronic bilateral lower extremity diabetic wounds/ulcers who presents to the [facility] ED on 09/15/2024 with worsening left lower extremity swelling and foot wound. #1. Left lower extremity cellulitis, polymicrobial, MRSA screen positive, awaiting bedside debridement cultures, complicated by left plantar ulcer with full-thickness wound with dry eschar to bilateral lower extremity as well as stable blister to left medial heel and bilateral lower extremity edema superimposed with diabetic chronic neuropathy: Patient admitted initially to PCU status, given stable status have assured de-escalation to standard care, DVT ultrasound 09/15/2024 negative, plain film of the foot 09/15/2024 with no acute findings, maintained on IV Unasyn and IV vancomycin initially-->transitioned to oral doxycycline and IV Unasyn, podiatry consulted and following in addition to infectious disease, bedside excisional debridement performed per podiatry up specifically to full-thickness wounds with culture obtained, will continue dressings with Aquacel Ag, topical bacitracin, sterile dry dressing as well as a single-layer Mittal compression bandage to the left lower extremity to be done daily per podiatry recommendation, continue offloading, 09/21/2024 increased gabapentin given patient ongoing complaints of pain, continued oral as needed narcotic regimen, wound RN consulted. 09/20/2024 infectious disease evaluation with recommended transition to 1 additional week of oral doxycycline and Augmentin. PT/OT/case management consulted with planned skilled facility placement once precertification is obtained Patient clinically cleared for discharge, only awaiting precertification for skilled transition. #2. Diabetes mellitus type II, uncontrolled with chronic diabetic neuropathy: Presentation HgbA1c on 09/15/2024 10.6%, previous to this 08/05/2019 5.1 A1c 10.9%, initiated on aggressive twice daily long-acting insulin as well as short acting insulin, ADA diet, accu checks w/ ISS, nutrition consulted and following. Long- acting insulin and short acting has been adjusted over time during admission with improvement of blood sugars. Given ongoing pain 09/21/24 increased gabapentin regimen. #3. Questionable onset overload, possibly HFpEF: 09/16/2024 echocardiogram with EF 55 to 60% with no significant valvular abnormality with normal LV systolic function, concern initially for mild overload with lower extremity swelling, BNP elevated 2085, initiated on Lasix 20 mg IV twice daily eventually transitioned to hydrochlorothiazide, continue Eliquis, statin, Coreg, lisinopril home regimen in addition to diuretic as noted. Monitor for overload. #4. Homelessness, medication nonadherence: Patient homeless and nonadherent with medication for at least 1 to 2 months secondary to running out of them, patient significantly high risk for nonadherence to treatment with subsequent and increased risk for complications and readmission, at this time plan for transition to [facility] facility, case management consulted. #5. Normocytic anemia, appears new chronicity: 09/18/2024 hemoglobin 12.3, MCV 93, decreased from previous 13 although range has vacillated, appears primarily 13-14 previously, has remained in the 12 range, 09/21/2024 hemoglobin 12.4, MCV 93.1, continue to trend. #6. Hypertension: Continue home regimen including Coreg, clonidine, hydrochlorothiazide, lisinopril, PRN hydralazine. #7. Hyperlipidemia: Will continue patient on statin therapy. #8. Tobacco Abuse: Encouraged cessation, inpatient consultation per RT, NR if desired. #9. Morbid Obesity: Weight loss and lifestyle changes encouraged, nutrition consulted. #10. DVT prophylaxis: Continued on patient home Eliquis regimen. Charges/Coding Visit Charges Inpatient E&M: 79930 Subs Hosp L2
[2024-09-21 09:29] VITALS: BP 150/90; PULSE 65; RESP 18; TEMP 36.7; O2SAT 97
[2024-09-21] MEDS: APIXABAN 5 MG TABLET PO ×2 (09:35→21:47)
[2024-09-21] MEDS: BACITRACIN 15 GM Tube 1 APPLIC TOPICAL ×2 (09:36→21:43)
[2024-09-21] MEDS: Insulin Glargine-YFGN 100 UNIT/ML Pen 35 UNIT SC ×2 (09:40→21:45)
--- NOTE | 2024-09-21 11:09 | WOUNDNOTE ---
wound photo: right plantar foot
--- NOTE | 2024-09-21 11:09 | WOUNDNOTE ---
wound photo: right plantar foot
--- NOTE | 2024-09-21 11:09 | WOUNDNOTE ---
wound photo: left plantar foot
--- NOTE | 2024-09-21 11:09 | WOUNDNOTE ---
wound photo: left plantar foot
--- NOTE | 2024-09-21 11:10 | WOUNDNOTE ---
wound photo: left medial heel
--- NOTE | 2024-09-21 11:10 | WOUNDNOTE ---
wound photo: left medial heel
[2024-09-21 14:59] VITALS: BP 137/76; PULSE 65; RESP 18; TEMP 36.2; O2SAT 99
--- NOTE | 2024-09-21 16:33 | PCM.TXEXTCAR ---
Diet Diet Order/Speech Therapy: INPATIENT Hospital Diet / Speech Therapy Order(s) 09/15/24 17:46 Diet: Cardiac - Heart Healthy Food consistency:: Regular Liquid Consistency:: Regular/Thin Dietary Modifications:: Consistent Carbohydrate Type of Dietary Supplement:: Prateek Diet Comments: Pineapple coconut Prateek BID w/ lunch and dinner Routine Orders/Code Status Enema Type: Fleetz Enema Frequency: Daily PRN Routine Lab Work: - (Repeat BMP, CBC in 1 week.) Code Status: Full Code DC O2, CPAP, BIPAP needs Home O2 Discharge instructions: No Wound(s) rt fingers: Wound Type: Burn rt planter foot: Wound Type: Neuropathic/Diabetic Foot Ulcer Dressing Change: AntiMicrobial (Aquacel AG, etc) lt plantar: Wound Type: Neuropathic/Diabetic Foot Ulcer Dressing Change: AntiMicrobial (Aquacel AG, etc) lt heel: Wound Type: blister Dressing Change: AntiMicrobial (Aquacel AG, etc) Suggestions for Active Care Change Position every (hours): 2 Hours to sit in a chair: 6 Times a day to sit in chair: 3 Therapies Weight Bearing: Partial weight bearing (Patient to be partial weightbearing to bilateral heels with assistance of walker using surgical shoes.) Physical Therapy: Eval and Treat Occupational Therapy: Eval and Treat Problem/Diagnosis (1) Cellulitis of left leg: Status: Acute Code(s): L03.116 - Cellulitis of left lower limb (2) Hyperglycemia due to diabetes mellitus: Status: Acute Code(s): E11.65 - Type 2 diabetes mellitus with hyperglycemia Allergies/Procedures Done in Hospital Allergies trazodone (trazamine) Adverse Reaction (Mild, Verified 09/15/24 12:24) Other Vivid dreams and enuresis Procedures: None and - (Bedside podiatry directed I+D.) Type of Care/Length of Stay Estimated LOS: Convalescent Care Less Than 30 days Type of Care Needed: Skilled Rehab Potential: Good Prognosis: Good Additional Orders/Day of Discharge Day of Discharge: 09/21/24 Dietary and Speech Recommendations Dietitian Recommendations/Changes: Continue CCD/Cardiac diet to manage medical conditions. Will order pineapple coconut Prateek BID with meals to promote wound healing. Discharge Plan Admission Admit Date/Time: 09/15/24 16:34 Primary Reason for Your Visit: BL LE Infected Foot Wounds (Polymicrobial, MRSA), Mild HFpEF Exacerbation Attending Provider: Kristine Alexander Primary Care Provider: Care Physician,No Primary Consulting Providers: Cody Dubois; Dg Fox; Brennan Morrison; Reyes Rodriguez Instructions Patient Instructions: Heart Failure Flare Up Signs, Diabetes Foot Infections Tx, Diabetes: Keeping Feet Healthy, Diabetes: Inspecting Your Feet, Heart Failure Make Changes Diet, Diabetes: Meal Planning, Heart Failure, Diabetic Neuropathy Additional Instructions / Restrictions: GENERAL ADDITIONAL INFORMATION/DISCHARGE: #1. Diabetes mellitus type II, uncontrolled with chronic diabetic neuropathy: --Presentation HgbA1c on 09/15/2024 10.6%, previous to this 08/05/2019 5.1 A1c 10.9%. --You were initiated on aggressive twice daily long-acting insulin as well as short acting insulin. At discharge you are also being restarted on your oral regimen. Please continue to closely monitor your blood sugars and adjust the insulin accordingly. You may need to also alter the oral regimen in addition. --Please follow-up with Endocrinology and establish as recommended to continue to monitor your diabetes, alter medications and assure improved control. --Also, given ongoing pain 09/21/24 increased gabapentin regimen. #2. Questionable onset overload, possibly HFpEF: --09/16/2024 echocardiogram with EF 55 to 60% with no significant valvular abnormality with normal LV systolic function. --Concern initially for mild overload with lower extremity swelling, BNP elevated 2085, initiated on Lasix 20 mg IV twice daily eventually transitioned to hydrochlorothiazide. --Continue Eliquis, statin, Coreg, lisinopril regimen in addition to diuretic. --Please continue to monitor weight with daily weights and if > 5 lb weight gain may need to consider alteration of diuretics or pulse dose lasix oral regimen. #3. Normocytic anemia, appears new chronicity: --09/18/2024 hemoglobin 12.3, MCV 93, decreased from previous 13 although range has vacillated, appears primarily 13-14 previously, has remained in the 12 range, 09/21/2024 hemoglobin 12.4, MCV 93.1. Recommend ongoing evaluation and repeat assessment outpatient. PODIATRY SURGICAL DISCHARGE INSTRUCTIONS/ADDITIONAL: Weightbearing status: Patient to be partial weightbearing to bilateral heels with assistance of walker using surgical shoes. Bilateral foot dressing changes orders: 1. Remove all dressings from the bilateral lower extremity and wash the full-thickness wounds with sterile saline and antibacterial soap. Wipe clean and pat dry. 2. Apply Aquacel Ag to the bilateral full-thickness wounds at the level of the plantar feet and heel. 3. Cover with dry sterile dressing, wrap with a light Kerlix, wrap with under casting, and apply Jan bandages from sulcus of toes to mid calf to the bilateral lower extremity. Please change every other day. Patient is to follow-up with Dr. Dubois in private office for continued wound care and treatment. Please have patient follow-up in 1 week to 10 days. Continue additional antibiotic regimen per Infectious disease recommendation of augmentin and doxycycline for 1 additional week at discharge. 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 and also to rt post elbow cracked area. gabapentin 300 mg Capsule 900 mg PO TID 30 Days Qty: 270 0RF Eliquis 5 mg Tablet 5 mg PO BID Qty: 0 0RF sennosides-docusate sodium [Stimulant Laxative Plus] 8.6-50 mg Tablet 2 tab PO BID Qty: 0 0RF oxycodone 5 mg Tablet 5 mg PO Q4H PRN PRN (Reason: Pain Score 4-10 Or Pre Pt/Ot) 5 Days Qty: 20 0RF nicotine 14 mg/24 hr Patch 24 Hour 14 mg transdermal DAILY 14 Days Qty: 0 0RF Rx Instructions: Transition to 7 mg patch following completion per SNF physician direction. melatonin 3 mg Tablet 3 mg PO QHS PRN PRN (Reason: Insomnia) Qty: 0 0RF insulin lispro [Humalog KwikPen Insulin] 100 unit/mL Insulin Pen 5 unit subcut TIDAC Qty: 0 0RF insulin lispro [Humalog KwikPen Insulin] 100 unit/mL Insulin Pen See Protocol subcut ACHS Qty: 0 0RF Protocol: 4. Sliding Scale Insulin High-Med Dosing Condition: 150-199 mg/dl = 2 units Condition: 200-259 mg/dl = 4 units Condition: 260-324 mg/dl = 6 units Condition: 325-374 mg/dl = 8 units Condition: 375-409 mg/dl = 10 units Condition: 410-449 mg/dl = 11 units Condition: Greater than 449 call physician Protocol Text: Suggested for: - Patients on Total Daily Insulin Dose of 56-80 units - Patient who are known to be insulin resistant or septic HIGH MEDIUM DOSING ALGORITHM insulin glargine-yfgn 100 unit/mL (3 mL) Insulin Pen 35 unit subcut BID Qty: 0 0RF Continued Jardiance 25 mg tablet 25 mg PO DAILY Patient Comments: has been out for months clonidine HCl 0.1 mg tablet 0.1 mg PO BID Patient Comments: has been out for months carvedilol 25 mg tablet 12.5 mg PO BID atorvastatin 10 mg tablet 10 mg PO DAILY Patient Comments: states hasn't been taking it for several months. glipizide 2.5 mg tablet extended release 24hr 2.5 mg PO DAILY Patient Comments: has been out for months metformin 1,000 mg tablet 1,000 mg PO BID Patient Comments: has been out for months lisinopril-hydrochlorothiazide 10-12.5 mg tablet 1 tab PO DAILY Patient Comments: been out for months albuterol sulfate 90 mcg/actuation HFA aerosol inhaler 1 puff inhalation Q4H PRN PRN (Reason: wheezing) fluoxetine 60 mg tablet 60 mg PO DAILY Eliquis 5 mg tablet 5 mg PO BID Discontinued gabapentin 300 mg capsule 300 mg PO TID Patient Comments: has been out for months meloxicam 15 mg tablet 15 mg PO DAILY Patient Comments: has been out for months Referrals / Follow Up: Cody Dubois DPM [Med Staff - Active Staff] - See Referral Note (Patient is to follow-up in 1 week to 10 days postdischarge.) Nabil Torres MD [Med Staff - Courtesy Staff] - (Please establish with Endocrinology with first visit available.) Care Physician,No Primary [Primary Care Provider] - (Discussed establishing with primary care several times and patient preference to await transition to skilled to decide on possible office in [facility].) Disposition Disposition (needs filled in before D/C Order can be placed): Senior Living Facility
[2024-09-21 21:37] VITALS: BP 133/68; PULSE 67; RESP 18; TEMP 36.3; O2SAT 99
[2024-09-21] MEDS: Senna/Docusate Sodium 1 Tablet 2 TABLET PO (21:47)
[2024-09-21] MEDS: 0.9% Saline Lock 10 ML Syringe IV (23:56)
[2024-09-22 03:05] VITALS: BP 134/66; PULSE 58; RESP 18; TEMP 36.1; O2SAT 96
[2024-09-22 03:15] VITALS: BMI 51.2
[2024-09-22] MEDS: Ampicillin/Sulbactam 3 GM in 0.9% Normal Saline (100mL MB+) 100 ML IV (05:25)
--- NOTE | 2024-09-22 06:53 | PN.HOSP_ITS ---
Reason for Visit Reason for Visit: Diagnoses Tinea unguium (09/15/24) Type 2 diabetes mellitus with diabetic polyneuropathy (09/15/24) Type 2 diabetes mellitus with hyperglycemia (09/15/24) Other specified peripheral vascular diseases (09/15/24) Cellulitis of left lower limb (09/15/24) Non-pressure chronic ulcer of other part of right foot with fat layer exposed (09/15/24) Non-pressure chronic ulcer of other part of right foot with necrosis of muscle (09/15/24) Non-pressure chronic ulcer of other part of left foot with fat layer exposed (09/15/24) Non-pressure chronic ulcer of other part of left foot with necrosis of muscle (09/15/24) Pain in left leg (09/15/24) Pain in right toe(s) (09/15/24) Pain in left toe(s) (09/15/24) Edema, unspecified (09/15/24) Blister (nonthermal), left foot, initial encounter (09/15/24) Subjective Subjective Patient with no acute vents overnight per self and per nursing report. Patient reports he did get up with therapy the day prior but is still hesitant as he does not like to cause any disturbance to the dressing change especially the left lower extremity. He notes that he did get some exercises to do at rest but from discussion is uncertain how much he is actually been doing this. Patient reports again diffuse generalized aching but has not been moving much thus this was encouraged strongly. Patient denies fevers, chills, nausea, emesis, abdominal pain, chest pain or dyspnea. Objective Data Objective Data Vital Signs: Vital Signs Temp Pulse Resp BP Pulse Ox O2 Del Method 97.0 F L 58 L 18 134/66 H 96 Room Air 09/22/24 03:05 09/22/24 03:05 09/22/24 03:05 09/22/24 03:05 09/22/24 03:05 09/22/24 03:05 Oxygen Delivery Method Room Air Weight: 377 lb 10.429 oz Body Mass Index (BMI) 51.2 Intake & Output: Intake and Output for Last 24 Hours 09/20/24 09/21/24 09/22/24 23:59 23:59 23:59 Intake Total 1120 / 1120 900 / 900 200 / 200 Output Total 2275 / 2275 2600 / 2600 950 / 950 Balance -1155 / -1155 -1700 / -1700 -750 / -750 Lab / Micro Data 09/22/24 06:34 09/22/24 06:34 Labs: Laboratory Results - last 24 hr 09/21/24 05:20: Sodium 137, Potassium 3.9, Chloride 101, Carbon Dioxide 26.0, Anion Gap 9, BUN 12, Creatinine 0.65 L, Estim Creat Clear Calc 221.54, Est GFR (MDRD) Non-Af 115, BUN/Creatinine Ratio 19.1, Glucose 223 H, Calcium 9.0, Total Bilirubin 0.21, AST 13, ALT 10, Alkaline Phosphatase 104, Total Protein 6.7, A lbumin 2.9 L, Globulin 3.8, Albumin/Globulin Ratio 0.8 L 09/21/24 08:00: POC Glucose 234 H 09/21/24 11:31: POC Glucose 298 H 09/21/24 16:18: POC Glucose 149 H 09/21/24 21:40: POC Glucose 255 H Micro: Microbiology 09/19/24 11:15 Ulcer, Decubitus - Left Foot Gram Stain - Final 09/19/24 11:15 Ulcer, Decubitus - Left Foot Wound Culture - Final Meth. resistant Staph. aureus Staphylococcus epidermidis 09/19/24 11:15 Ulcer, Decubitus - Left Foot Anaerobic Culture - Preliminary Checking for anaerobes, further studies to follow. Social Homelessness:: Sheltered Physical Exam Narrative Physical Examination: General: Awake, alert, oriented x 3 and cooperative, seated upright in the PCU bedside chair, again notes generalized body aching but appears comfortable. Skin: Normal color, normal turgor, no icterus, no cyanosis except occasional stage ecchymoses, abrasions, bilateral lower extremity dressings in place with no drainage. HEENT: AT/NC, EOMI, PERRLA, MMM. Lungs: CTA bilaterally, moderate effort, mild decrease BL bases, no rales, ronchi or wheezing. Heart: Regular rate and rhythm; no gallop, rub audible. Abdomen: Soft, morbidly obese, NTTP, ND, distant normal BS. Extremities: No cyanosis, no clubbing, see skin, bilateral lower extremity distal 1-2+ edema. Neurological: Patient awake, alert, oriented as noted, cognitive function intact; pupils equally reactive to light and accommodation, cranial nerves grossly normal, moving all 4 extremities although somewhat limited bilateral lower extremity secondary to discomfort and dressings, strength moderately to severely globally decreased. Psychiatric: Affect appears mildly fatigued, no acute evidence of depressive or anxiety feelings. Assessment & Plan Assessment/Plan (1) Cellulitis of left leg: (2) Hyperglycemia due to diabetes mellitus: PLAN: Plan The patient is a 49 y/o M w/ PMHx: Morbid obesity, HTN, HLD, Tobacco use, Diabetes mellitus type II, Homesslessness status w/ medication noncompliant with chronic bilateral lower extremity diabetic wounds/ulcers who presents to the [facility] ED on 09/15/2024 with worsening left lower extremity swelling and foot wound. #1. Left lower extremity cellulitis, polymicrobial, MRSA screen positive, awaiting bedside debridement cultures, complicated by left plantar ulcer with full-thickness wound with dry eschar to bilateral lower extremity as well as stable blister to left medial heel and bilateral lower extremity edema superimposed with diabetic chronic neuropathy: Patient admitted initially to PCU status, given stable status have assured de-escalation to standard care, DVT ultrasound 09/15/2024 negative, plain film of the foot 09/15/2024 with no acute findings, maintained on IV Unasyn and IV vancomycin initially-->transitioned to oral doxycycline and IV Unasyn, podiatry consulted and following in addition to infectious disease, bedside excisional debridement performed per podiatry up specifically to full-thickness wounds with culture obtained, will continue dressings with Aquacel Ag, topical bacitracin, sterile dry dressing as well as a single-layer Mittal compression bandage to the left lower extremity to be done daily per podiatry recommendation, continue offloading, 09/21/2024 increased gabapentin given patient ongoing complaints of pain, continued oral as needed narcotic regimen, wound RN consulted. 09/20/2024 infectious disease evaluation with recommended transition to 1 additional week of oral doxycycline and Augmentin. 09/22/2024 patient finally given pre-CERT positive status for transition to residential facility, will plan discharge. #2. Diabetes mellitus type II, uncontrolled with chronic diabetic neuropathy: Presentation HgbA1c on 09/15/2024 10.6%, previous to this 08/05/2019 5.1 A1c 10.9%, initiated on aggressive twice daily long-acting insulin as well as short acting insulin, ADA diet, accu checks w/ ISS, nutrition consulted and following. Long- acting insulin and short acting has been adjusted over time during admission with improvement of blood sugars. 09/21/2024 increase gabapentin regimen. #3. Questionable onset overload, possibly HFpEF: 09/16/2024 echocardiogram with EF 55 to 60% with no significant valvular abnormality with normal LV systolic function, concern initially for mild overload with lower extremity swelling, BNP elevated 2085, initiated on Lasix 20 mg IV twice daily eventually transitioned to hydrochlorothiazide, continue Eliquis, statin, Coreg, lisinopril home regimen in addition to diuretic as noted. Monitor for overload. #4. Homelessness, medication nonadherence: Patient homeless and nonadherent with medication for at least 1 to 2 months secondary to running out of them, patient significantly high risk for nonadherence to treatment with subsequent and increased risk for complications and readmission, at this time plan for transition to residential facility, case management consulted. #5. Normocytic anemia, appears new chronicity: 09/18/2024 hemoglobin 12.3, MCV 93, decreased from previous 13 although range has vacillated, appears primarily 13-14 previously, has remained in the 12 range, 09/22/24 hemoglobin 12.5, MCV 94. #6. Hypertension: Continue home regimen including Coreg, clonidine, hydrochlorothiazide, lisinopril, PRN hydralazine. #7. Hyperlipidemia: Will continue patient on statin therapy. #8. Tobacco Abuse: Encouraged cessation, inpatient consultation per RT, NR if desired. #9. Morbid Obesity: Weight loss and lifestyle changes encouraged, nutrition consulted. #10. DVT prophylaxis: Continued on patient home Eliquis regimen. Charges/Coding Visit Charges Inpatient E&M: 50178 Subs Hosp L2
[2024-09-22 07:27] LABS: Hematocrit 37.4 % (40-54); Hemoglobin 12.5 g/dL (13.0-16.5); Immature Granulocytes Count 0.110 X10^3/uL (0.0-0.0); Mean Corp Hgb Conc 33.4 g/dL (32-36); Mean Corpuscular Volume 94.0 fL (80-94); Mean Platelet Vol. 9.5 fl (6.2-12.0); NRBC Flagged by Analyzer 0 % (0-5); Platelet Count 367 K/mm3 (150-450); RBC Distribution Width CV 13.2 % (11.6-14.6); RBC Distribution Width SD 45.9 fl (35.1-43.9); Red Blood Count 3.98 M/mm3 (4.6-6.2); White Blood Count 9.4 K/mm3 (4.4-11.0)
[2024-09-22 08:02] LABS: AST(SGOT) 12 U/L (<=37); Alanine Aminotransfer ALT/SGPT 12 U/L (<=46); Albumin, Serum 2.9 g/dL (3.5-5.0); Alkaline Phosphatase 90 U/L (40-129); Anion Gap 11 (5-15); BUN 11 mg/dL (4-19); BUN/Creat Ratio 16.2 RATIO (10-20); Calcium,Total 9.2 mg/dL (7.6-11.0); Carbon Dioxide 25.1 mmol/L (21.0-32.0); Chloride 100 mmol/L (98-108); Estimated Creatinine Clearance 208.48 ml/min (50-250); Globulin 4.4 g/dL (2.2-4.2); Glucose 124 mg/dL (70-99); Potassium 4.0 mmol/L (3.3-5.1)
[2024-09-22] MEDS: Insulin Glargine-YFGN 100 UNIT/ML Pen 35 UNIT SC (09:13)
[2024-09-22] MEDS: APIXABAN 5 MG TABLET PO (09:14)
[2024-09-22] MEDS: Senna/Docusate Sodium 1 Tablet 2 TABLET PO (09:14)
[2024-09-22] MEDS: BACITRACIN 15 GM Tube 1 APPLIC TOPICAL (09:58)
[2024-09-22 10:00] VITALS: BP 136/87; PULSE 58; RESP 16; TEMP 36.9; O2SAT 100
--- NOTE | 2024-09-22 10:31 | PCM.DC.SUM ---
Providers Date of Admission: 09/15/24 Date of Discharge: 09/22/24 Primary Care Physician: Yaritza Primary Care Phys Consultations 09/15/24 17:46 Consult: Onc/Wound/correctional program specialist Routine Comment: Reason for Consult:: left diabetic foot wound Consult: Podiatry Routine Consulting Provider: Cody Dubois Reason for Consult: left diabetic foot wound EMERGENT Consult: No MD Notified: Yes Date Notified: 09/15/24 Time Notified: 17:30 Method of Notification: Verbal 09/20/24 07:26 Consult: Infectious Disease Routine Consulting Provider: Reyes Rodriguez Reason for Consult: Diabetic foot wound EMERGENT Consult: No Notified: Yes Date Notified: 09/20/24 Time Notified: 08:37 Method of Notification: Text Reason For Visit: LEFT DIABETIC FOOT WOUND, CHF EXACERBATION Diagnosis Discharge Diagnosis (1) Cellulitis of left leg: Status: Acute Code(s): L03.116 - Cellulitis of left lower limb (2) Hyperglycemia due to diabetes mellitus: Status: Acute Code(s): E11.65 - Type 2 diabetes mellitus with hyperglycemia Plan: DISCHARGE DIAGNOSES: #1. Left lower extremity cellulitis, polymicrobial, MRSA screen positive, awaiting bedside debridement cultures, complicated by left plantar ulcer with full-thickness wound with dry eschar to bilateral lower extremity as well as stable blister to left medial heel and bilateral lower extremity edema superimposed with diabetic chronic neuropathy #2. Diabetes mellitus type II, uncontrolled with chronic diabetic neuropathy #3. Questionable onset overload, possibly HFpEF mild acute exacerbation #4. Homelessness, medication nonadherence #5. Normocytic anemia, appears new chronicity #6. Hypertension #7. Hyperlipidemia #8. Tobacco Abuse #9. Morbid Obesity Medications at Discharge Home Medications albuterol sulfate 90 mcg/actuation aerosol inhaler 1 puff inhalation Q4H PRN PRN wheezing 11/10/23 apixaban 5 mg tablet (Eliquis) 5 mg PO BID 11/10/23 atorvastatin 10 mg tablet 10 mg PO DAILY cholestrol 11/10/23 carvedilol 25 mg tablet 12.5 mg PO BID heart rate 11/10/23 fluoxetine 60 mg tablet 60 mg PO DAILY mood 11/10/23 glipizide 2.5 mg tablet, extended release 24 hr 2.5 mg PO DAILY blood glucose 11/10/23 lisinopril 10 mg-hydrochlorothiazide 12.5 mg tablet 1 tab PO DAILY bp 11/10/23 metformin 1,000 mg tablet 1,000 mg PO BID blood glucose 11/10/23 empagliflozin 25 mg tablet (Jardiance) 25 mg PO DAILY blood glucose 03/26/24 clonidine HCl 0.1 mg tablet 0.1 mg PO BID blood pressure 09/15/24 amoxicillin 875 mg-potassium clavulanate 125 mg tablet 1 tab PO BID #14 tabs 09/20/24 doxycycline monohydrate 100 mg capsule 100 mg PO BID 7 days #14 caps 09/20/24 acetaminophen 325 mg tablet 650 mg (2 x 325 mg) PO Q6H PRN PRN Pain 1-10 Or Fever>100.7 #0 tabs 09/21/24 apixaban 5 mg tablet (Eliquis) 5 mg PO BID #0 tabs 09/21/24 bacitracin zinc 500 unit/gram topical ointment 1 applic topical BID #0 grams 09/21/24 gabapentin 300 mg capsule 900 mg (3 x 300 mg) PO TID 30 days #270 caps 09/21/24 insulin glargine-yfgn 100 unit/mL (3 mL) subcutaneous pen 35 unit (0.35 mL) subcut BID #0 mL 09/21/24 insulin lispro 100 unit/mL subcutaneous pen (Humalog KwikPen (U-100) Insulin) 5 unit (0.05 mL) subcut TIDAC #0 mL 09/21/24 insulin lispro 100 unit/mL subcutaneous pen (Humalog KwikPen (U-100) Insulin) See Protocol subcut ACHS #0 mL 09/21/24 melatonin 3 mg tablet 3 mg PO QHS PRN PRN Insomnia #0 tabs 09/21/24 nicotine 14 mg/24 hr daily transdermal patch 14 mg transdermal DAILY 14 days #0 ea 09/21/24 oxycodone 5 mg tablet 5 mg PO Q4H PRN PRN Pain Score 4-10 Or Pre Pt/Ot 5 days #20 tabs 09/21/24 sennosides 8.6 mg-docusate sodium 50 mg tablet (Stimulant Laxative Plus) 2 tab PO BID #0 tabs 09/21/24 Hospital Course Operations - (Beside podiatry directed intervention only.) Procedures 2-D Echocardiogram and EKG Summary of Care Provided Minutes Spent on Discharge: 35 Hospital Course: The patient is a 49 y/o M w/ PMHx: Morbid obesity, HTN, HLD, Tobacco use, Diabetes mellitus type II, Homesslessness status w/ medication noncompliant with chronic bilateral lower extremity diabetic wounds/ulcers who presented to the [facility] ED on 09/15/2024 with worsening left lower extremity swelling and foot wound. Patient admitted initially to PCU status, given stable status have assured de-escalation to standard care, DVT ultrasound 09/15/2024 negative, plain film of the foot 09/15/2024 with no acute findings, maintained on IV Unasyn and IV vancomycin initially-->transitioned to oral doxycycline and IV Unasyn, podiatry consulted and following in addition to infectious disease, bedside excisional debridement performed per podiatry up specifically to full-thickness wounds with culture obtained, will continue dressings with Aquacel Ag, topical bacitracin, sterile dry dressing as well as a single-layer Mittal compression bandage to the left lower extremity to be done daily per podiatry recommendation, continue offloading, 09/21/2024 increased gabapentin given patient ongoing complaints of pain, continued oral as needed narcotic regimen, wound RN consulted. 09/20/2024 infectious disease evaluation with recommended transition to 1 additional week of oral doxycycline and Augmentin. Presentation with concern for mild overload w/ 09/16/2024 echocardiogram with EF 55 to 60% with no significant valvular abnormality with normal LV systolic function, concern initially for mild overload with lower extremity swelling, BNP elevated 2085, initiated on Lasix 20 mg IV twice daily eventually transitioned to hydrochlorothiazide, continue Eliquis, statin, Coreg, lisinopril home regimen in addition to diuretic. 09/18/2024 hemoglobin 12.3, MCV 93, decreased from previous 13 although range has vacillated, appears primarily 13-14 previously, has remained in the 12 range, 09/22/24 hemoglobin 12.5, MCV 94. Presentation HgbA1c on 09/15/2024 10.6%, previous to this 08/05/2019 5.1 A1c 10.9%, initiated on aggressive twice daily long-acting insulin as well as short acting insulin which was continued at discharge in addition to increased gabapentin. 09/22/2024 patient finally given pre-CERT positive status for transition to half-way facility thus discharged in improved stable condition. Medical Records Data Homelessness:: Sheltered Weight / BMI Weight Weight: 377 lb 10.429 oz Body Mass Index (BMI) 51.2 ABG / Lab / Microbiology Data 09/22/24 06:34 09/22/24 06:34 Laboratory: Laboratory Results - last 24 hr 09/21/24 11:31: POC Glucose 298 H 09/21/24 16:18: POC Glucose 149 H 09/21/24 21:40: POC Glucose 255 H 09/22/24 06:34: WBC 9.4, RBC 3.98 L, Hgb 12.5 L, Hct 37.4 L, MCV 94.0, MCH 31.4, MCHC 33.4, RDW Std Deviation 45.9 H, RDW Coeff of Rachel 13.2, Plt Count 367, MPV 9.5, Immature Gran % (Auto) 1.200 H, Neut % (Auto) 63.4, Lymph % (Auto) 22.6, [place] % (Auto) 8.4, Eos % (Auto) 3.9, Baso % (Auto) 0.5, Absolute Neuts (auto) 6.0, Absolute Lymphs (auto) 2.12, Nucleated RBC % 0, Sodium 135, Potassium 4.0, Chloride 100, Carbon Dioxide 25.1, Anion Gap 11, BUN 11, Creatinine 0.69 L, Estim Creat Clear Calc 208.48, Est GFR (MDRD) Non-Af 113, BUN/Creatinine Ratio 16.2, Glucose 124 H, Calcium 9.2, Total Bilirubin 0.39, AST 12, ALT 12, Alkaline Phosphatase 90, Total Protein 7.4, Albumin 2.9 L, Globulin 4.4 H, Albumin/Globulin Ratio 0.7 L 09/22/24 07:49: POC Glucose 130 H Microbiology: Microbiology 09/19/24 11:15 Ulcer, Decubitus - Left Foot Gram Stain - Final 09/19/24 11:15 Ulcer, Decubitus - Left Foot Wound Culture - Final Meth. resistant Staph. aureus Staphylococcus epidermidis 09/19/24 11:15 Ulcer, Decubitus - Left Foot Anaerobic Culture - Final No anaerobic bacteria isolated. D/C Instructions DC O2, CPAP, BIPAP Needs Home O2 Discharge instructions: No Meaningful Use Info Meaningful Use Meaningful Use Diagnoses (Choose all that apply): CHF CHF ESTER/ARB ordered at discharge?: Yes Documented LVEF (%): 55 Ischemic Stroke Statin Dosing Therapy Reference: STATIN DOSE THERAPY REFERENCE: * Patients > 75 years receive moderate or high dose statin therapy. * Patients 75 years or YOUNGER should receive HIGH intensity statin dose unless contraindicated. You will be required to document reason for non-treatment if statin daily dose does not meet guidelines. HIGH DOSE STATIN THERAPY DAILY Atorvastatin > than or = to 40 mg Rosuvastatin > than or = to 20 mg Amlodipine + Atorvastatin > than or = to 2.5/40 mg Ezetimibe + Simvastatin 10/80 mg Simvastatin 80mg Discharge Plan Admission Admit Date/Time: 09/15/24 16:34 Primary Reason for Your Visit: BL LE Infected Foot Wounds (Polymicrobial, MRSA), Mild HFpEF Exacerbation Attending Provider: Kristine Alexander Primary Care Provider: Care Physician,No Primary Consulting Providers: oCdy Dubois; Dg Fox; Brennan Morrison; Reyes Rodriguez Instructions Patient Instructions: Heart Failure Flare Up Signs, Diabetes Foot Infections Tx, Diabetes: Keeping Feet Healthy, Diabetes: Inspecting Your Feet, Heart Failure Make Changes Diet, Diabetes: Meal Planning, Heart Failure, Diabetic Neuropathy Additional Instructions / Restrictions: GENERAL ADDITIONAL INFORMATION/DISCHARGE: #1. Diabetes mellitus type II, uncontrolled with chronic diabetic neuropathy: --Presentation HgbA1c on 09/15/2024 10.6%, previous to this 08/05/2019 5.1 A1c 10.9%. --You were initiated on aggressive twice daily long-acting insulin as well as short acting insulin. At discharge you are also being restarted on your oral regimen. Please continue to closely monitor your blood sugars and adjust the insulin accordingly. You may need to also alter the oral regimen in addition. --Please follow-up with Endocrinology and establish as recommended to continue to monitor your diabetes, alter medications and assure improved control. --Also, given ongoing pain 09/21/24 increased gabapentin regimen. #2. Questionable onset overload, possibly HFpEF: --09/16/2024 echocardiogram with EF 55 to 60% with no significant valvular abnormality with normal LV systolic function. --Concern initially for mild overload with lower extremity swelling, BNP elevated 208, initiated on Lasix 20 mg IV twice daily eventually transitioned to hydrochlorothiazide. --Continue Eliquis, statin, Coreg, lisinopril regimen in addition to diuretic. --Please continue to monitor weight with daily weights and if > 5 lb weight gain may need to consider alteration of diuretics or pulse dose lasix oral regimen. #3. Normocytic anemia, appears new chronicity: --09/18/2024 hemoglobin 12.3, MCV 93, decreased from previous 13 although range has vacillated, appears primarily 13-14 previously, has remained in the 12 range, 09/21/2024 hemoglobin 12.4, MCV 93.1. Recommend ongoing evaluation and repeat assessment outpatient. PODIATRY SURGICAL DISCHARGE INSTRUCTIONS/ADDITIONAL: Weightbearing status: Patient to be partial weightbearing to bilateral heels with assistance of walker using surgical shoes. Bilateral foot dressing changes orders: 1. Remove all dressings from the bilateral lower extremity and wash the full-thickness wounds with sterile saline and antibacterial soap. Wipe clean and pat dry. 2. Apply Aquacel Ag to the bilateral full-thickness wounds at the level of the plantar feet and heel. 3. Cover with dry sterile dressing, wrap with a light Kerlix, wrap with under casting, and apply Ester bandages from sulcus of toes to mid calf to the bilateral lower extremity. Please change every other day. Patient is to follow-up with Dr. Dubois in private office for continued wound care and treatment. Please have patient follow-up in 1 week to 10 days. Continue additional antibiotic regimen per Infectious disease recommendation of augmentin and doxycycline for 1 additional week at discharge. Discharge Orders/Prescriptions Prescriptions: New doxycycline monohydrate 100 mg Capsule 100 mg PO BID 7 Days Qty: 14 0RF amoxicillin-pot clavulanate 875-125 mg tablet 1 tab PO BID Qty: 14 0RF acetaminophen 325 mg Tablet 650 mg PO Q6H PRN PRN (Reason: Pain 1-10 Or Fever>100.7) Qty: 0 0RF bacitracin zinc 500 unit/gram Ointment 1 applic topical BID Qty: 0 0RF Protocol: *Topical Application Instructions APPLICATION INSTRUCTIONS: apply to rt finger wounds and leave news videotape editor. and also to rt post elbow cracked area. gabapentin 300 mg Capsule 900 mg PO TID 30 Days Qty: 270 0RF Eliquis 5 mg Tablet 5 mg PO BID Qty: 0 0RF sennosides-docusate sodium [Stimulant Laxative Plus] 8.6-50 mg Tablet 2 tab PO BID Qty: 0 0RF oxycodone 5 mg Tablet 5 mg PO Q4H PRN PRN (Reason: Pain Score 4-10 Or Pre Pt/Ot) 5 Days Qty: 20 0RF nicotine 14 mg/24 hr Patch 24 Hour 14 mg transdermal DAILY 14 Days Qty: 0 0RF Rx Instructions: Transition to 7 mg patch following completion per SNF physician direction. melatonin 3 mg Tablet 3 mg PO QHS PRN PRN (Reason: Insomnia) Qty: 0 0RF insulin lispro [Humalog KwikPen Insulin] 100 unit/mL Insulin Pen 5 unit subcut TIDAC Qty: 0 0RF insulin lispro [Humalog KwikPen Insulin] 100 unit/mL Insulin Pen See Protocol subcut ACHS Qty: 0 0RF Protocol: 4. Sliding Scale Insulin High-Med Dosing Condition: 150-199 mg/dl = 2 units Condition: 200-259 mg/dl = 4 units Condition: 260-324 mg/dl = 6 units Condition: 325-374 mg/dl = 8 units Condition: 375-409 mg/dl = 10 units Condition: 410-449 mg/dl = 11 units Condition: Greater than 449 call physician Protocol Text: Suggested for: - Patients on Total Daily Insulin Dose of 56-80 units - Patient who are known to be insulin resistant or septic HIGH MEDIUM DOSING ALGORITHM insulin glargine-yfgn 100 unit/mL (3 mL) Insulin Pen 35 unit subcut BID Qty: 0 0RF Continued Jardiance 25 mg tablet 25 mg PO DAILY Patient Comments: has been out for months clonidine HCl 0.1 mg tablet 0.1 mg PO BID Patient Comments: has been out for months carvedilol 25 mg tablet 12.5 mg PO BID atorvastatin 10 mg tablet 10 mg PO DAILY Patient Comments: states hasn't been taking it for several months. glipizide 2.5 mg tablet extended release 24hr 2.5 mg PO DAILY Patient Comments: has been out for months metformin 1,000 mg tablet 1,000 mg PO BID Patient Comments: has been out for months lisinopril-hydrochlorothiazide 10-12.5 mg tablet 1 tab PO DAILY Patient Comments: been out for months albuterol sulfate 90 mcg/actuation HFA aerosol inhaler 1 puff inhalation Q4H PRN PRN (Reason: wheezing) fluoxetine 60 mg tablet 60 mg PO DAILY Eliquis 5 mg tablet 5 mg PO BID Discontinued gabapentin 300 mg capsule 300 mg PO TID Patient Comments: has been out for months meloxicam 15 mg tablet 15 mg PO DAILY Patient Comments: has been out for months Referrals / Follow Up: Cody Dubois DPM [Med Staff - Active Staff] - See Referral Note (Patient is to follow-up in 1 week to 10 days postdischarge.) Nabil Torres MD [Med Staff - Courtesy Staff] - (Please establish with Endocrinology with first visit available.) Care Physician,No Primary [Primary Care Provider] - (Discussed establishing with primary care several times and patient preference to await transition to skilled to decide on possible office in [facility].) Disposition Disposition (needs filled in before D/C Order can be placed): [facility] Facility Charges/Coding Visit Charges Inpatient E&M: 52197 Disch Hosp >30min
--- NOTE | 2024-09-22 10:35 | CASEMGMT ---
Discharge Planning Discharge orders, signed med list, and transport time sent to [facility]. Physicians will transport pt by wheelchair at 11:30a. Nursing, SW, pt, and his sister (Rosi) updated. Huma Hobbs DC Planning Asst.
--- NOTE | 2024-09-22 10:35 | CASEMGMT ---
Discharge Planning Discharge orders, signed med list, and transport time sent to [facility]. Physicians will transport pt by wheelchair at 11:30a. Nursing, SW, pt, and his sister (Rosi) updated. Huma Hobbs DC Planning Asst.
== END 2024-09-22 11:55 | disposition skilled nursing facility (03) | DRG 364 ==
LOC: ED 14:57 → PCU 17:05
PROVIDERS: Internal Medicine; Admitting Provider Hospitalist; Emergency Provider Emergency Medicine; Visit Provider Family Medicine
DX: E11.628 Type 2 diabetes mellitus with other skin complications (principal); L97.513 Non-pressure chronic ulcer of other part of right foot with necrosis of muscle; L97.523 Non-pressure chronic ulcer of other part of left foot with necrosis of muscle; I50.31 Acute diastolic (congestive) heart failure; I48.92 Unspecified atrial flutter; N17.9 Acute kidney failure, unspecified; Z59.02 Unsheltered homelessness; L03.116 Cellulitis of left lower limb; B35.1 Tinea unguium; D64.9 Anemia, unspecified; I11.0 Hypertensive heart disease with heart failure; I48.0 Paroxysmal atrial fibrillation; E66.813 Obesity, class 3; E11.621 Type 2 diabetes mellitus with foot ulcer; J45.909 Unspecified asthma, uncomplicated; F32.A Depression, unspecified; E11.42 Type 2 diabetes mellitus with diabetic polyneuropathy; F41.9 Anxiety disorder, unspecified; F17.210 Nicotine dependence, cigarettes, uncomplicated; E78.5 Hyperlipidemia, unspecified; E11.65 Type 2 diabetes mellitus with hyperglycemia; Z68.41 Body mass index [BMI] 40.0-44.9, adult; M19.072 Primary osteoarthritis, left ankle and foot; S90.822A Blister (nonthermal), left foot, initial encounter; L13.9 Bullous disorder, unspecified; M79.674 Pain in right toe(s); M79.675 Pain in left toe(s); E11.51 Type 2 diabetes mellitus with diabetic peripheral angiopathy without gangrene; Z87.898 Personal history of other specified conditions; B95.62 Methicillin resistant Staphylococcus aureus infection as the cause of diseases classified elsewhere; X58.XXXA Exposure to other specified factors, initial encounter; F43.10 Post-traumatic stress disorder, unspecified; Z91.148 Patient's other noncompliance with medication regimen for other reason; Z79.84 Long term (current) use of oral hypoglycemic drugs; Z79.01 Long term (current) use of anticoagulants; Z79.899 Other long term (current) drug therapy
CPT/HCPCS: 36415; 71045; 73630; 80048; 80053; 80202; 82010; 82077; 82803; 82962; 83036; 83605; 83880; 84484; 85025; 85027; 85610; 85652; 85730; 86140; 87070; 87075; 87077; 87186; 87205; 87640; 93005; 93306; 93971; 94668; 97110; 97112; 97116; 97162; 97166; 97530; 97535; 97802; 99285; Q9957; A4216; C8929; J0295; J1938

== ENCOUNTER → 2025-03-16 | Outpatient (CLI) | payer MEDICAID, SELFPAY ==
--- NOTE | 2025-03-16 15:38 | MRI_ITS ---
PROCEDURE: SPINE CERVICAL (ROUTINE) 03/16/2025 REASON FOR EXAM: Cervical radiculopathy TECHNIQUE: Procedure Code: MRISPC Modality: MR Procedure: SPINE CERVICAL (ROUTINE) Multiplanar and multisequence images were obtained without IV contrast administration. COMPARISON: None available. FINDINGS: The visualized posterior fossa contents appear within normal limits. Straightening of the cervical spine. The atlantooccipital and atlantoaxial joints appear normally aligned. The cervical vertebral bodies are normal in height. The cervical vertebral bodies are normal in alignment. The cervical bone marrow signal is within normal limits. There is no evidence of cervical spinal cord signal abnormality. C2-C3: No significant spinal canal stenosis. Facet arthrosis and uncovertebral spurring contribute to moderate left neural foraminal narrowing. Intact right neural foramen. C3-C4: No significant spinal canal stenosis. Facet arthrosis and uncovertebral spurring contribute to mild bilateral neural foraminal narrowing. C4-C5: No significant spinal canal or neural foraminal stenosis. C5-C6: Central disc protrusion contributes to mild spinal canal stenosis. Facet arthrosis and uncovertebral spurring contribute to [id number] right neural foraminal narrowing. No significant left neural foraminal stenosis. C6-C7: No significant spinal canal stenosis or neural foraminal narrowing. C7-T1: No significant spinal canal stenosis neural foraminal narrowing. MRI/Spine Cervical (Routine) IMPRESSION: Cervical spondylosis without high-grade spinal canal or neural foraminal stenos is. Reading Location: [id number]
--- NOTE | 2025-03-16 15:38 | MRI_ITS ---
PROCEDURE: SPINE LUMBAR (ROUTINE) 03/16/2025 REASON FOR EXAM: Lumbar radiculopathy TECHNIQUE: Procedure Code: MRISPL Modality: MR Procedure: SPINE LUMBAR (ROUTINE) COMPARISON: None available. FINDINGS: For the purposes of this report, the most caudal rectangular vertebral body will be designated L5. The next most caudal trapezoidal shaped vertebral body will be designated S1. The intervening disc at the lumbosacral angle is designated L5-S1. The normal lumbar lordosis is maintained. The lumbar vertebral bodies are normal in height. The lumbar vertebral bodies are normal in alignment. No bone marrow replacing lesion in the lumbar spine. Multilevel disc desiccation. Prominent anterior osteophyte at L4-L5. There is no evidence of signal abnormality in the imaged distal spinal cord. The conus medullaris terminates at the level of L1-L2. T12-L1: No significant spinal canal stenosis or neural foraminal narrowing. L1-L2: No significant spinal canal stenosis or neural foraminal narrowing. L2-L3: Disc bulge and prominent epidural fat contributes to moderate spinal canal stenosis. There is crowding of the descending nerve roots. Bilateral facet arthrosis and ligamentum flavum hypertrophy. No significant neural foraminal narrowing. L3-L4: Disc bulge and prominent epidural fat contributes to moderate spinal canal stenosis. Crowding of the descending nerve roots. Bilateral facet arthrosis and ligamentum flavum hypertrophy. Moderate bilateral neural foraminal narrowing. L4-L5: Disc bulge, bilateral facet arthrosis, ligamentum flavum hypertrophy, and prominent epidural fat. Moderate spinal canal stenosis with crowding of the descending nerve roots. Severe right and mild left neural foraminal narrowing. Type 2 Modic endplate changes. L5-S1: Prominent epidural fat narrows the spinal canal. The posterior paraspinal muscles are intact. MRI/Spine Lumbar (Routine) IMPRESSION: Lumbar epidural lipomatosis contributes to moderate spinal canal stenosis in th e lumbar spine. At L4-L5, severe right neural foraminal stenosis predominantly secondary to disc bulge and facet arthrosis. Reading Location: [id number]
--- NOTE | 2025-03-16 15:38 | MRI_ITS ---
PROCEDURE: SPINE THORACIC (ROUTINE) 03/16/2025 REASON FOR EXAM: OTHER ABNORMALITIES OF GAIT AND MOBILITY; RADICULOPATHY TECHNIQUE: Procedure Code: MRISPT Modality: MR Procedure: SPINE THORACIC (ROUTINE) Multiplanar and multisequence images were obtained. COMPARISON: None. FINDINGS: Vertebrae: Preserved in height and signal. Alignment: Normal alignment. Spinal Cord: Normal. MRI/Spine Thoracic (Routine) IMPRESSION: Unremarkable MRI of the thoracic spine. Reading Location: [id number]
--- OUTSIDE RECORDS SUMMARY | 2025-03-16 15:52 | XMS RPT_ITS | CCD ---
Author Organization [facility] Inform ion Partnership [employer] [facility] Care Team Providers Care Body Cleaner Name Role Phone Xavier Simmons Primary Care Provider [phone] PHYSICIAN, NONE Primary Care Physician Unavailab le MAST PULMONARY FUNCTION TECHNOLOGIST-BENEFITS DIRECTOR, YAMILETH Primary Care Physician [phone] GURWINDER FARRIS MD Attending Unavailable MAST PULMONARY FUNCTION TECHNOLOGIST-BENEFITS DIRECTOR, YAMILETH Primary Care Unavailabl e MAST PULMONARY FUNCTION TECHNOLOGIST-BENEFITS DIRECTOR, YAMILETH Attending Unavailabl e MAST PULMONARY FUNCTION TECHNOLOGIST-BENEFITS DIRECTOR, YAMILETH Primary Care Unavailabl e MAST PULMONARY FUNCTION TECHNOLOGIST-BENEFITS DIRECTOR, YAMILETH Attending Unavailabl e MAST PULMONARY FUNCTION TECHNOLOGIST-BENEFITS DIRECTOR, YAMILETH Primary Care Unavailabl e MAST PULMONARY FUNCTION TECHNOLOGIST-BENEFITS DIRECTOR, YAMILETH Attending Unavailabl e MAST PULMONARY FUNCTION TECHNOLOGIST-BENEFITS DIRECTOR, YAMILETH Primary Care Unavailabl e MAST PULMONARY FUNCTION TECHNOLOGIST-BENEFITS DIRECTOR, YAMILETH Attending Unavailabl e MAST PULMONARY FUNCTION TECHNOLOGIST-BENEFITS DIRECTOR, YAMILETH Primary Care Unavailabl e MAST PULMONARY FUNCTION TECHNOLOGIST-BENEFITS DIRECTOR, YAMILETH Attending Unavailabl e MAST PULMONARY FUNCTION TECHNOLOGIST-BENEFITS DIRECTOR, YAMILETH Primary Care Unavailabl e Unavailable Primary Care Provider Unavailabl e RICHARD CURRIE Primary Care Unavailable MARQUES DESAI Attending Unavailable EBBINGBRAD Attending Unavailabl e EBBINGBRAD Admitting Unavailabl e Physician, No Pcp Primary Care Provider Unavaila ble PHYSICIAN, NO PCP Primary Care Unavailable MARCEL HINOJSOA Attending Unavailable PHYSICIAN, NO PCP Primary Care Unavailable Cody Dubois Consulting Unavailable Brennan Morrison Attending Unavailable Dg Fox Admitting Unavailable Care Physician, No Primary Primary Care Unava ilable Dg Fox Consulting Unavailable Brennan Morrison Consulting Unavailable Kristine Alexander Attending Unavailable Gurwinder Rodriguez Consulting Unavailable Kristine Alexander Consulting Unavailable Wandy Pittman Admitting Unavailable Wandy Pittman Unavailable MAST, YAMILETH Primary Care Unavailable Ronnie Witt Attending Unavailable Ronnie Witt Consulting Unavailable Wandy Pittman Attending Unavailable MAST, YAMILETH Primary Care Unavailable White, Kristine L Admitting Unavailable White, Kristine L Consulting Unavailable Jesse Hernandez Admitting Unavailable Care Physician, No Primary Primary Care Unava ilable Jesse Hernandez Consulting Unavailable Ronnie Witt Attending Unavailable Brian Felix Attending Unavailable Care Physician, No Primary Primary Care Unava ilable Dg Fox Admitting Unavailable White, Kristine L Attending Unavailable Cody Dubois Consulting Unavailable Care Physician, No Primary Primary Care Unava ilable Dg Fox Consulting Unavailable Brennan Morrison Consulting Unavailable Gurwinder Rodriguez Consulting Unavailable MAST, YAMILETH Primary Care Unavailable White, Kristine L Admitting Unavailable White, Kristine L Attending Unavailable White, Kristine L Consulting Unavailable Wandy Pittman Attending Unavailable Wandy Pittman Consulting Unavailable Dg Fox Attending Unavailable Jesse Hernandez Consulting Unavailable Jesse Hernandez Admitting Unavailable Ronnie Witt Attending Unavailable Care Physician, No Primary Primary Care Unava ilable Ronnie Witt Consulting Unavailable Wandy Pittman Admitting Unavailable Wandy Pittman Attending Unavailable Wandy Pittman Consulting Unavailable MAST, YAMILETH Primary Care Unavailable Ashley Delgado Attending Unavailable Care Physician, No Primary Primary Care Unava ilable Jos Polk Attending Unavailable Giovany Valdez Referring Unavailable Care Physician, No Primary Primary Care Unava ilable Wandy Pittman Admitting Unavailable Wandy Pittman Consulting Unavailable MAST, YAMILETH Primary Care Unavailable Ronnie Witt Attending Unavailable Jesse Hernandez Attending Unavailable Allergies Allergy Classification Reported Allergen(s) Allergy Type Date of Onset Reaction(s) Facility (1 source) traZODone Drug Allergy 09-15-2024 [facility] Repository Medications Current Medications Medication Drug [...] wheezing, # 18 gram(s), 2 Refill(s), [facility]acy: [facility] #[id number], 180, cm, 07/29/23 10:40:00 EDT, Height, kg, 07/29/23 10:40:00 EDT, Dosing Weight Start Date: 07/29/23 Status: Ordered Start: 11-12-2022 take 1 puff(s) by in halation every four hours as needed for wheezing albuterol MDI (90 mcg/inh) CFC free inhalation aerosol 1 puff(s), Inhalation, q4h, PRN as needed for wheezing, # 18 gram(s), 2 Refill(s), [facility]acy: [facility] #[id number], 178, cm, 11/12/22 11:25:00 EDT, Height, kg, [...] BID, # 60 tab(s), 11 Refill(s), [facility][id number], 180, cm, 07/29/23 10:40:00 EDT, Height, 139.5, [...] qDay, # 30 tab(s), 11 Refill(s), [facility] #[id number], 180, cm, 03/21/23 10:52:00 EST, Height, kg, [...] BID, # 60 tab(s), 11 Refill(s), [facility]acy: [facility] #[id number], 178, cm, 11/12/22 11:25:00 EDT, Height, kg, 11/12/22 11:25:00 EDT, Dosing Weight Start Date: 11/12/22 Stop Date: 11/07/23 Status: Ordered Start: 09-16-2022 End: 03-15-2023 BuPROPion (Eqv-Wellbutrin SR ) 150 mg/12 hours oral tablet, extended release Dose : 150 mg = 1 tab(s), Oral, BID, # 180 tab(s), 1 Refill(s), [id number], 175, cm, 09/16/22 10:31:00 EDT, Height Start Date: 09/16/22 Stop Date: 03/15/23 Status: Ordered carvedilol 25 mg oral tablet (7 sources) alpha-Adrenergic Magui, beta-Adrenergic Magui Start: 11-12-2022 End: 11-07-2023 carvedilol 25 mg oral tablet Dose : 12.5 mg = 0.5 tab(s), Oral, BID, # 30 tab(s), 11 Refill(s), [facility]: [facility] #[id number], 178, cm, 11/12/22 11:25:00 EDT, Height, kg, [...] BID, # 180 tab(s), 1 Refill(s), [facility] #[id number], 175, cm, 09/16/22 10:31:00 EDT, Height Start [...] qDay, # 30 tab(s), 11 Refill(s), Pharmacy: [facility] #[id number], 178, cm, 11/12/22 11:25:00 EDT, Height, kg, 11/12/22 11:25:00 EDT, Dosing Weight Start Date: 11/12/22 Status: Ordered chlorhexidine gluconate 1.2 mg/ml mouthwash (2 sources) Start: 05-27-2024 End: 06-06-2024 chlorhexidine (PERIDEX) 0.12 % solution Swish and spit 15 mL 2 (two) times a day for 10 days. 300 mL 05/27/2024 06/06/2024 Active Continuous Blood Gluc Inspector Fabric (FREESTYLE BETY 2 READER) ANJELICA (1 source) Start: 06-27-2021 Continuous Blo od Gluc Inspector Fabric (FREESTYLE BETY 2 READER) ANJELICA Test q day 1 each 1 06/27/2021 Active Continuous Blood Gluc Sensor (FREESTYLE BETY 2 SENSOR) MISC (1 source) Start: 06-27-2021 Continuous Blo od Gluc Sensor (FREESTYLE BETY 2 SENSOR) MISC Test q day 1 each 11 06/27/2021 Active diphenhydramine-alumin pe-pdtbbzchb-gmfktvban ne-lidocaine (MAGIC MOUTHWASH) 61-526-215-40-200 mg/30 mL liquid suspension (2 sources) Start: 05-27-2024 End: 06-03-2024 diphenhydramine-alumi pfr-ztszxqhcd-vzbmril cone-lidocaine (MAGIC MOUTHWASH) [id number] mg/30 mL liquid suspension Take 10 mL [...] qAM, # 30 tab(s), 11 Refill(s), [facility]acy: [facility] #[id number], Type 2 diabetes mellitus with hyperglycemia, 180, cm, 07/29/23 10:40:00 EDT, Height, kg, 07/29/23 10:40:00 EDT, Dosing Weight Start Date: 07/29/23 Stop Date: 07/23/24 Status: Ordered FLUoxetine 60 mg oral tablet (5 sources) Serotonin Reuptake Inhibitor Start: 03-21-2023 End: 03-15-2024 FLUoxetine 60 mg oral tablet Dose : 60 mg = 1 tab(s), Oral, qAM, # 30 tab(s), 11 Refill(s), Pharmacy: [facility] #[id number], 180, cm, 03/21/23 10:52:00 EST, Height, kg, 03/21/23 10:52:00 EST, Dosing Weight Start Date: 03/21/23 Stop Date: 03/15/24 Status: Ordered Start: 11-12-2022 PROzac 40 mg o ral capsule Dose : 40 mg = 1 cap(s), Oral, qDay, # 30 cap(s), 11 Refill(s), Pharmacy: [facility] #[id number], 178, cm, 11/12/22 11:25:00 EDT, Height, kg, 11/12/22 11:25:00 EDT, Dosing Weight Start Date: 11/12/22 Status: Ordered Start: 09-24-2022 End: 09-19-2023 PROzac 20 mg oral capsule Do se : 20 mg = 1 cap(s), Oral, qDay, # 30 cap(s), 11 Refill(s), Pharmacy: [facility] #[id number], Anxiety, 178, cm, 09/24/22 9:34:00 EDT, Height [...] food, # 30 tab(s), 11 Refill(s), [facility] #[id number], 180, cm, 03/21/23 10:52:00 EST, Height, kg, [...] qDay, # 30 tab(s), 11 Refill(s), Pharmacy: [facility] #[id number], 180, cm, 07/29/23 10:40:00 EDT, Height, kg, [...] 2 Refill(s), 09/26/23 9:53:00 AM EDT, [facility]acy: [facility] #[id number], Anxiety, 178, cm, 09/24/22 9:34:00 EDT, Height [...] BID, # 60 tab(s), 11 Refill(s), [facility] #[id number], 178, cm, 11/12/22 11:25:00 EDT, Height, kg, [...] MG tablet 04/02/2024 Active polyethylene glycol 3350 24787 mg powder for oral solution (3 sources) [...] (4 sources) Tachycardia; Translations: [Bradycardia] 09-16-2022 Episodic Chronic ulcer of skin (4 sources) Non-pressure chronic ulcer of other part of left foot with necrosis of muscle; Translations: [Non-pressure chronic ulcer of other part of right foot with necrosis of muscle] Onset: 09-22-2024 Chronic Diabetes mellitus with complications (18 sources) Hyperglycemia due to type 2 diabetes [...] and fatigue (1 source) Fatigue 07-29-2023 Episodic Mycoses (1 source) Tinea unguium; Translations: [Tinea unguium] Onset: 09-22-2024 Episodic Open wounds of extremities (10 sources) [...] unspecified hip] Onset: 04-01-2024 09-16-2022 Chronic Other circulatory disease (1 source) Other specified peripheral vascular diseases; Translations: [Other specified peripheral vascular diseases] Onset: 09-22-2024 Chronic Other connective tissue disease (1 source) Pain in left leg; Translations: [Pain in left leg] Onset: 09-22-2024 Episodic Other connective tissue disease (1 source) Other specified soft tissue disorders; Translations: [Other specified soft tissue disorders] Onset: 10-05-2024 Episodic Other connective tissue disease (1 source) Pain in right toe(s); Translations: [Pain in right toe(s)] Onset: 09-22-2024 Episodic Other connective tissue disease (1 source) Pain in left toe(s); Translations: [Pain in left toe(s)] Onset: 09-22-2024 Episodic Other male genital disorders (5 sources) Impotence [...] 11-11-2018 Episodic Residual codes; unclassified (1 source) Edema, unspecified; Translations: [Edema, unspecified] Onset: 09-22-2024 Episodic Residual codes; unclassified (1 source) Tobacco use; Translations: [Tobacco use] Onset: 08-06-2024 Episodic Skin and subcutaneous tissue infections (1 source) Cellulitis of left lower limb; Translations: [Cellulitis of left lower limb] Onset: 09-22-2024 Episodic Spondylosis; intervertebral disc disorders; other back problems (5 sources) Chronic low back pain; Translations: [Lumbar radiculopathy] Onset: 2021 Episodic Substance-related disorders (9 sources) Smoker; Translations: [Nicotine dependence, unspecified, uncomplicated] Onset: 03-29-2020 03-29-2020 Chronic Comment on above: 1ppd since age 34 Superficial injury; contusion (1 source) Blister (nonthermal), left foot, initial encounter; Translations: [Blister (nonthermal), left foot, initial encounter] Onset: 09-22-2024 Episodic Unclassified (2 sources) Hypercoagulable state due to [...] Test Name Value Interpretation Reference Range Facility CBC W/Diff, Automatedon 09-14 Absolute Neut Normal 2.0-7.7 [facility] Comment on above: Result Comment: Canc elled via OM: Order cancelled - Patient discharged Performed By: #### L 100.0100, L500.4050 ####[facility] [address] [place], [address] HCT Normal 40-54 [facility] Comment on above: Result Comment: Canc elled via OM: Order cancelled - Patient discharged Performed By: #### L 100.0100, L500.4050 ####[facility] [address] [place], [address] HGB Normal 13.0-16.5 [facility] Comment on above: Result Comment: Canc elled via OM: Order cancelled - Patient discharged Performed By: #### L 100.0100, L500.4050 ####[facility] [address] [place], [address] MCH Normal 27.0-32.0 [facility] Comment on above: Result Comment: Canc elled via OM: Order cancelled - Patient discharged Performed By: #### L 100.0100, L500.4050 ####[facility] [address] [place], [address] MCHC Normal 32-36 [facility] Comment on above: Result Comment: Canc elled via OM: Order cancelled - Patient discharged Performed By: #### L 100.0100, L500.4050 ####[facility] [address] [place], [address] MCV Normal 80-94 [facility] Comment on above: Result Comment: Canc elled via OM: Order cancelled - Patient discharged Performed By: #### L 100.0100, L500.4050 ####[facility] [address] [place], [address] NEUT% Normal 47-70 [facility] Comment on above: Result Comment: Canc elled via OM: Order cancelled - Patient discharged Performed By: #### L 100.0100, L500.4050 ####[facility] [address] [place], [address] PLT Normal 150-450 [facility] Comment on above: Result Comment: Canc elled via OM: Order cancelled - Patient discharged Performed By: #### L 100.0100, L500.4050 ####[facility] [address] [place], [address] RBC Normal 4.6-6.2 [facility] Comment on above: Result Comment: Canc elled via OM: Order cancelled - Patient discharged Performed By: #### L 100.0100, L500.4050 ####[facility] [address] [place], [address] RDW CV Normal 11.6-14.6 [facility] Comment on above: Result Comment: Canc elled via OM: Order cancelled - Patient discharged Performed By: #### L 100.0100, L500.4050 ####[facility] [address] [place], [address] RDW SD Normal 35.1-43.9 [facility] Comment on above: Result Comment: Canc elled via OM: Order cancelled - Patient discharged Performed By: #### L 100.0100, L500.4050 ####[facility] [address] [place], [address] WBC Normal 4.4-11.0 [facility] Comment on above: Result Comment: Canc elled via OM: Order cancelled - Patient discharged Performed By: #### L 100.0100, L500.4050 ####[facility] [address] [place], [address] Comprehensive Metabolic Prof cruz 09-27-2024 ALB Normal 3.5-5.0 [facility] Comment on above: Result Comment: Canc elled via OM: Order cancelled - Patient discharged Performed By: #### L 100.0100, L500.4050 ####[facility] [address] [place], [address] ALK PHOS Normal 40-129 [facility] Comment on above: Result Comment: Canc elled via OM: Order cancelled - Patient discharged Performed By: #### L 100.0100, L500.4050 ####[facility] [address] [place], [address] ALT Normal <=46 [facility] Comment on above: Result Comment: Canc elled via OM: Order cancelled - Patient discharged Performed By: #### L 100.0100, L500.4050 ####[facility] [address] [place], [address] AST Normal <=37 [facility] Comment on above: Result Comment: Canc elled via OM: Order cancelled - Patient discharged Performed By: #### L 100.0100, L500.4050 ####[facility] [address] [place], [address] BUN Normal 4-19 [facility] Comment on above: Result Comment: Canc elled via OM: Order cancelled - Patient discharged Performed By: #### L 100.0100, L500.4050 ####[facility] [address] [place], [address] BUN/CRE Normal 10-20 [facility] Comment on above: Result Comment: Canc elled via OM: Order cancelled - Patient discharged Performed By: #### L 100.0100, L500.4050 ####[facility] [address] [place], [address] Calcium Normal 7.6-11.0 [facility] Comment on above: Result Comment: Canc elled via OM: Order cancelled - Patient discharged Performed By: #### L 100.0100, L500.4050 ####[facility] [address] [place], [address] CL Normal 98-108 [facility] Comment on above: Result Comment: Canc elled via OM: Order cancelled - Patient discharged Performed By: #### L 100.0100, L500.4050 ####[facility] [address] [place], [address] CO2 Normal 21.0-32.0 [facility] Comment on above: Result Comment: Canc elled via OM: Order cancelled - Patient discharged Performed By: #### L 100.0100, L500.4050 ####[facility] [address] [place], [address] CREAT,SERUM Normal 0.70-1.20 [facility] Comment on above: Result Comment: Canc elled via OM: Order cancelled - Patient discharged Performed By: #### L 100.0100, L500.4050 ####[facility] [address] [place], [address] eGFR Normal >60 [facility] Comment on above: Result Comment: Canc elled via OM: Order cancelled - Patient discharged Performed By: #### L 100.0100, L500.4050 ####[facility] [address] [place], [address] GAP Normal 5-15 [facility] Comment on above: Result Comment: Canc elled via OM: Order cancelled - Patient discharged Performed By: #### L 100.0100, L500.4050 ####[facility] [address] [place], [address] GLU Normal 70-99 [facility] Comment on above: Result Comment: Canc elled via OM: Order cancelled - Patient discharged Performed By: #### L 100.0100, L500.4050 ####[facility] [address] [place], [address] Potassium Normal 3.3-5.1 [facility] Comment on above: Result Comment: Canc elled via OM: Order cancelled - Patient discharged Performed By: #### L 100.0100, L500.4050 ####[facility] [address] [place], [address] T BILI Normal 0.00-1.30 [facility] Comment on above: Result Comment: Canc elled via OM: Order cancelled - Patient discharged Performed By: #### L 100.0100, L500.4050 ####[facility] [address] [place], [address] T PROT Normal 5.9-8.4 [facility] Comment on above: Result Comment: Canc elled via OM: Order cancelled - Patient discharged Performed By: #### L 100.0100, L500.4050 ####[facility] [address] [place], [address] Comprehensive Metabolic Profil Normal 133-145 [facility] Comment on above: Result Comment: Canc elled via OM: Order cancelled - Patient discharged Performed By: #### L 100.0100, L500.4050 ####[facility] [address], [address] CBC W/Diff, Automatedon 07-1 Absolute Neut Normal 2.0-7.7 [facility] Comment on above: Result Comment: Canc elled via OM: Order cancelled - Patient discharged Performed By: #### L 100.0100, L500.4050 ####[facility] [address] [place], [address] HCT Normal 40-54 [facility] Comment on above: Result Comment: Canc elled via OM: Order cancelled - Patient discharged Performed By: #### L 100.0100, L500.4050 ####[facility] [address], [address] HGB Normal 13.0-16.5 [facility] Comment on above: Result Comment: Canc elled via OM: Order cancelled - Patient discharged Performed By: #### L 100.0100, L500.4050 ####[facility] [address] [place], [address] MCH Normal 27.0-32.0 [facility] Comment on above: Result Comment: Canc elled via OM: Order cancelled - Patient discharged Performed By: #### L 100.0100, L500.4050 ####[facility] [address] [place], [address] MCHC Normal 32-36 [facility] Comment on above: Result Comment: Canc elled via OM: Order cancelled - Patient discharged Performed By: #### L 100.0100, L500.4050 ####[facility] [address] [place], [address] MCV Normal 80-94 [facility] Comment on above: Result Comment: Canc elled via OM: Order cancelled - Patient discharged Performed By: #### L 100.0100, L500.4050 ####[facility] [address] [place], [address] NEUT% Normal 47-70 [facility] Comment on above: Result Comment: Canc elled via OM: Order cancelled - Patient discharged Performed By: #### L 100.0100, L500.4050 ####[facility] [address] [place], [address] PLT Normal 150-450 [facility] Comment on above: Result Comment: Canc elled via OM: Order cancelled - Patient discharged Performed By: #### L 100.0100, L500.4050 ####[facility] [address] [place], [address] RBC Normal 4.6-6.2 [facility] Comment on above: Result Comment: Canc elled via OM: Order cancelled - Patient discharged Performed By: #### L 100.0100, L500.4050 ####[facility] [address] [place], [address] RDW CV Normal 11.6-14.6 [facility] Comment on above: Result Comment: Canc elled via OM: Order cancelled - Patient discharged Performed By: #### L 100.0100, L500.4050 ####[facility] [address] [place], [address] RDW SD Normal 35.1-43.9 [facility] Comment on above: Result Comment: Canc elled via OM: Order cancelled - Patient discharged Performed By: #### L 100.0100, L500.4050 ####[facility] [address] [place], [address] WBC Normal 4.4-11.0 [facility] Comment on above: Result Comment: Canc elled via OM: Order cancelled - Patient discharged Performed By: #### L 100.0100, L500.4050 ####[facility] [address] [place], [address] Comprehensive Metabolic Prof ilon 09-26-2024 ALB Normal 3.5-5.0 [facility] Comment on above: Result Comment: Canc elled via OM: Order cancelled - Patient discharged Performed By: #### L 100.0100, L500.4050 ####[facility] [address] [place], [address] ALK PHOS Normal 40-129 [facility] Comment on above: Result Comment: Canc elled via OM: Order cancelled - Patient discharged Performed By: #### L 100.0100, L500.4050 ####[facility] [address] [place], [address] ALT Normal <=46 [facility] Comment on above: Result Comment: Canc elled via OM: Order cancelled - Patient discharged Performed By: #### L 100.0100, L500.4050 ####[facility] [address] [place], [address] AST Normal <=37 [facility] Comment on above: Result Comment: Canc elled via OM: Order cancelled - Patient discharged Performed By: #### L 100.0100, L500.4050 ####[facility] [address] [place], [address] BUN Normal 4-19 [facility] Comment on above: Result Comment: Canc elled via OM: Order cancelled - Patient discharged Performed By: #### L 100.0100, L500.4050 ####[facility] [address] [place], [address] BUN/CRE Normal 10-20 [facility] Comment on above: Result Comment: Canc elled via OM: Order cancelled - Patient discharged Performed By: #### L 100.0100, L500.4050 ####[facility] [address] [place], [address] Calcium Normal 7.6-11.0 [facility] Comment on above: Result Comment: Canc elled via OM: Order cancelled - Patient discharged Performed By: #### L 100.0100, L500.4050 ####[facility] [address] [place], [address] CL Normal 98-108 [facility] Comment on above: Result Comment: Canc elled via OM: Order cancelled - Patient discharged Performed By: #### L 100.0100, L500.4050 ####[facility] [address] [place], [address] CO2 Normal 21.0-32.0 [facility] Comment on above: Result Comment: Canc elled via OM: Order cancelled - Patient discharged Performed By: #### L 100.0100, L500.4050 ####[facility] [address] [place], [address] CREAT,SERUM Normal 0.70-1.20 [facility] Comment on above: Result Comment: Canc elled via OM: Order cancelled - Patient discharged Performed By: #### L 100.0100, L500.4050 ####[facility] [address] [place], [address] eGFR Normal >60 [facility] Comment on above: Result Comment: Canc elled via OM: Order cancelled - Patient discharged Performed By: #### L 100.0100, L500.4050 ####[facility] [address] [place], [address] GAP Normal 5-15 [facility] Comment on above: Result Comment: Canc elled via OM: Order cancelled - Patient discharged Performed By: #### L 100.0100, L500.4050 ####[facility] [address] [place], [address] GLU Normal 70-99 [facility] Comment on above: Result Comment: Canc elled via OM: Order cancelled - Patient discharged Performed By: #### L 100.0100, L500.4050 ####[facility] [address] [place], [address] Potassium Normal 3.3-5.1 [facility] Comment on above: Result Comment: Canc elled via OM: Order cancelled - Patient discharged Performed By: #### L 100.0100, L500.4050 ####[facility] [address] [place], [address] T BILI Normal 0.00-1.30 [facility] Comment on above: Result Comment: Canc elled via OM: Order cancelled - Patient discharged Performed By: #### L 100.0100, L500.4050 ####[facility] [address] [place], [address] T PROT Normal 5.9-8.4 [facility] Comment on above: Result Comment: Canc elled via OM: Order cancelled - Patient discharged Performed By: #### L 100.0100, L500.4050 ####[facility] [address] [place], [address] Comprehensive Metabolic Profil Normal 133-145 [facility] Comment on above: Result Comment: Canc elled via OM: Order cancelled - Patient discharged Performed By: #### L 100.0100, L500.4050 ####[facility] [address] [place], [address] CBC W/Diff, Automatedon 07-1 Absolute Neut Normal 2.0-7.7 [facility] Comment on above: Result Comment: Canc elled via OM: Order cancelled - Patient discharged Performed By: #### L 100.0100, L500.4050 ####[facility] [address] [place], [address] HCT Normal 40-54 [facility] Comment on above: Result Comment: Canc elled via OM: Order cancelled - Patient discharged Performed By: #### L 100.0100, L500.4050 ####[facility] [address] [place], [address] HGB Normal 13.0-16.5 [facility] Comment on above: Result Comment: Canc elled via OM: Order cancelled - Patient discharged Performed By: #### L 100.0100, L500.4050 ####[facility] [address] [place], [address] MCH Normal 27.0-32.0 [facility] Comment on above: Result Comment: Canc elled via OM: Order cancelled - Patient discharged Performed By: #### L 100.0100, L500.4050 ####[facility] [address] [place], [address] MCHC Normal 32-36 [facility] Comment on above: Result Comment: Canc elled via OM: Order cancelled - Patient discharged Performed By: #### L 100.0100, L500.4050 ####[facility] [address] [place], [address] MCV Normal 80-94 [facility] Comment on above: Result Comment: Canc elled via OM: Order cancelled - Patient discharged Performed By: #### L 100.0100, L500.4050 ####[facility] [address] [place], [address] NEUT% Normal 47-70 [facility] Comment on above: Result Comment: Canc elled via OM: Order cancelled - Patient discharged Performed By: #### L 100.0100, L500.4050 ####[facility] [address] [place], [address] PLT Normal 150-450 [facility] Comment on above: Result Comment: Canc elled via OM: Order cancelled - Patient discharged Performed By: #### L 100.0100, L500.4050 ####[facility] [address] [place], [address] RBC Normal 4.6-6.2 [facility] Comment on above: Result Comment: Canc elled via OM: Order cancelled - Patient discharged Performed By: #### L 100.0100, L500.4050 ####[facility] [address] [place], [address] RDW CV Normal 11.6-14.6 [facility] Comment on above: Result Comment: Canc elled via OM: Order cancelled - Patient discharged Performed By: #### L 100.0100, L500.4050 ####[facility] [address] [place], [address] RDW SD Normal 35.1-43.9 [facility] Comment on above: Result Comment: Canc elled via OM: Order cancelled - Patient discharged Performed By: #### L 100.0100, L500.4050 ####[facility] [address] [place], [address] WBC Normal 4.4-11.0 [facility] Comment on above: Result Comment: Canc elled via OM: Order cancelled - Patient discharged Performed By: #### L 100.0100, L500.4050 ####[facility] [address] [place], [address] Comprehensive Metabolic Prof ilon 09-25-2024 ALB Normal 3.5-5.0 [facility] Comment on above: Result Comment: Canc elled via OM: Order cancelled - Patient discharged Performed By: #### L 100.0100, L500.4050 ####[facility] [address] [place], [address] ALK PHOS Normal 40-129 [facility] Comment on above: Result Comment: Canc elled via OM: Order cancelled - Patient discharged Performed By: #### L 100.0100, L500.4050 ####[facility] [address] [place], [address] ALT Normal <=46 [facility] Comment on above: Result Comment: Canc elled via OM: Order cancelled - Patient discharged Performed By: #### L 100.0100, L500.4050 ####[facility] [address] [place], [address] AST Normal <=37 [facility] Comment on above: Result Comment: Canc elled via OM: Order cancelled - Patient discharged Performed By: #### L 100.0100, L500.4050 ####[facility] [address] [place], [address] BUN Normal 4-19 [facility] Comment on above: Result Comment: Canc elled via OM: Order cancelled - Patient discharged Performed By: #### L 100.0100, L500.4050 ####[facility] [address] [place], [address] BUN/CRE Normal 10-20 [facility] Comment on above: Result Comment: Canc elled via OM: Order cancelled - Patient discharged Performed By: #### L 100.0100, L500.4050 ####[facility] [address] [place], [address] Calcium Normal 7.6-11.0 [facility] Comment on above: Result Comment: Canc elled via OM: Order cancelled - Patient discharged Performed By: #### L 100.0100, L500.4050 ####[facility] [address], [address] CL Normal 98-108 [facility] Comment on above: Result Comment: Canc elled via OM: Order cancelled - Patient discharged Performed By: #### L 100.0100, L500.4050 ####[facility] [address] [place], [address] CO2 Normal 21.0-32.0 [facility] Comment on above: Result Comment: Canc elled via OM: Order cancelled - Patient discharged Performed By: #### L 100.0100, L500.4050 ####[facility] [address] [place], [address] CREAT,SERUM Normal 0.70-1.20 [facility] Comment on above: Result Comment: Canc elled via OM: Order cancelled - Patient discharged Performed By: #### L 100.0100, L500.4050 ####[facility] [address] [place], [address] eGFR Normal >60 [facility] Comment on above: Result Comment: Canc elled via OM: Order cancelled - Patient discharged Performed By: #### L 100.0100, L500.4050 ####[facility] [address] [place], [address] GAP Normal 5-15 [facility] Comment on above: Result Comment: Canc elled via OM: Order cancelled - Patient discharged Performed By: #### L 100.0100, L500.4050 ####[facility] [address] [place], [address] GLU Normal 70-99 [facility] Comment on above: Result Comment: Canc elled via OM: Order cancelled - Patient discharged Performed By: #### L 100.0100, L500.4050 ####[facility] [address] [place], [address] Potassium Normal 3.3-5.1 [facility] Comment on above: Result Comment: Canc elled via OM: Order cancelled - Patient discharged Performed By: #### L 100.0100, L500.4050 ####[facility] [address] [place], [address] T BILI Normal 0.00-1.30 [facility] Comment on above: Result Comment: Canc elled via OM: Order cancelled - Patient discharged Performed By: #### L 100.0100, L500.4050 ####[facility] [address] [place], [address] T PROT Normal 5.9-8.4 [facility] Comment on above: Result Comment: Canc elled via OM: Order cancelled - Patient discharged Performed By: #### L 100.0100, L500.4050 ####[facility] [address] [place], [address] Comprehensive Metabolic Profil Normal 133-145 [facility] Comment on above: Result Comment: Canc elled via OM: Order cancelled - Patient discharged Performed By: #### L 100.0100, L500.4050 ####[facility] [address] [place], [address] CBC W/Diff, Automatedon 07-1 Absolute Neut Normal 2.0-7.7 [facility] Comment on above: Result Comment: Canc elled via OM: Order cancelled - Patient discharged Performed By: #### L 500.4050, L100.0100 ####[facility] [address] [place], [address] HCT Normal 40-54 [facility] Comment on above: Result Comment: Canc elled via OM: Order cancelled - Patient discharged Performed By: #### L 500.4050, L100.0100 ####[facility] [address] [place], [address] HGB Normal 13.0-16.5 [facility] Comment on above: Result Comment: Canc elled via OM: Order cancelled - Patient discharged Performed By: #### L 500.4050, L100.0100 ####[facility] [address] [place], [address] MCH Normal 27.0-32.0 [facility] Comment on above: Result Comment: Canc elled via OM: Order cancelled - Patient discharged Performed By: #### L 500.4050, L100.0100 ####[facility] [address] [place], [address] MCHC Normal 32-36 [facility] Comment on above: Result Comment: Canc elled via OM: Order cancelled - Patient discharged Performed By: #### L 500.4050, L100.0100 ####[facility] [address] [place], [address] MCV Normal 80-94 [facility] Comment on above: Result Comment: Canc elled via OM: Order cancelled - Patient discharged Performed By: #### L 500.4050, L100.0100 ####[facility] [address] [place], [address] NEUT% Normal 47-70 [facility] Comment on above: Result Comment: Canc elled via OM: Order cancelled - Patient discharged Performed By: #### L 500.4050, L100.0100 ####[facility] [address] [place], [address] PLT Normal 150-450 [facility] Comment on above: Result Comment: Canc elled via OM: Order cancelled - Patient discharged Performed By: #### L 500.4050, L100.0100 ####[facility] [address] [place], [address] RBC Normal 4.6-6.2 [facility] Comment on above: Result Comment: Canc elled via OM: Order cancelled - Patient discharged Performed By: #### L 500.4050, L100.0100 ####[facility] [address] [place], [address] RDW CV Normal 11.6-14.6 [facility] Comment on above: Result Comment: Canc elled via OM: Order cancelled - Patient discharged Performed By: #### L 500.4050, L100.0100 ####[facility] [address] [place], [address] RDW SD Normal 35.1-43.9 [facility] Comment on above: Result Comment: Canc elled via OM: Order cancelled - Patient discharged Performed By: #### L 500.4050, L100.0100 ####[facility] [address] [place], [address] WBC Normal 4.4-11.0 [facility] Comment on above: Result Comment: Canc elled via OM: Order cancelled - Patient discharged Performed By: #### L 500.4050, L100.0100 ####[facility] [address] [place], [address] Comprehensive Metabolic Prof ilon 09-24-2024 ALB Normal 3.5-5.0 [facility] Comment on above: Result Comment: Canc elled via OM: Order cancelled - Patient discharged Performed By: #### L 500.4050, L100.0100 ####[facility] [address] [place], [address] ALK PHOS Normal 40-129 [facility] Comment on above: Result Comment: Canc elled via OM: Order cancelled - Patient discharged Performed By: #### L 500.4050, L100.0100 ####[facility] [address] [place], [address] ALT Normal <=46 [facility] Comment on above: Result Comment: Canc elled via OM: Order cancelled - Patient discharged Performed By: #### L 500.4050, L100.0100 ####[facility] [address] [place], [address] AST Normal <=37 [facility] Comment on above: Result Comment: Canc elled via OM: Order cancelled - Patient discharged Performed By: #### L 500.4050, L100.0100 ####[facility] [address] [place], [address] BUN Normal 4-19 [facility] Comment on above: Result Comment: Canc elled via OM: Order cancelled - Patient discharged Performed By: #### L 500.4050, L100.0100 ####[facility] [address] [place], [address] BUN/CRE Normal 10-20 [facility] Comment on above: Result Comment: Canc elled via OM: Order cancelled - Patient discharged Performed By: #### L 500.4050, L100.0100 ####[facility] [address] [place], [address] Calcium Normal 7.6-11.0 [facility] Comment on above: Result Comment: Canc elled via OM: Order cancelled - Patient discharged Performed By: #### L 500.4050, L100.0100 ####[facility] [address] [place], [address] CL Normal 98-108 [facility] Comment on above: Result Comment: Canc elled via OM: Order cancelled - Patient discharged Performed By: #### L 500.4050, L100.0100 ####[facility] [address] [place], [address] CO2 Normal 21.0-32.0 [facility] Comment on above: Result Comment: Canc elled via OM: Order cancelled - Patient discharged Performed By: #### L 500.4050, L100.0100 ####[facility] [address] [place], [address] CREAT,SERUM Normal 0.70-1.20 [facility] Comment on above: Result Comment: Canc elled via OM: Order cancelled - Patient discharged Performed By: #### L 500.4050, L100.0100 ####[facility] [address] [place], [address] eGFR Normal >60 [facility] Comment on above: Result Comment: Canc elled via OM: Order cancelled - Patient discharged Performed By: #### L 500.4050, L100.0100 ####[facility] [address] [place], [address] GAP Normal 5-15 [facility] Comment on above: Result Comment: Canc elled via OM: Order cancelled - Patient discharged Performed By: #### L 500.4050, L100.0100 ####[facility] [address] [place], [address] GLU Normal 70-99 [facility] Comment on above: Result Comment: Canc elled via OM: Order cancelled - Patient discharged Performed By: #### L 500.4050, L100.0100 ####[facility] [address] [place], [address] Potassium Normal 3.3-5.1 [facility] Comment on above: Result Comment: Canc elled via OM: Order cancelled - Patient discharged Performed By: #### L 500.4050, L100.0100 ####[facility] [address] [place], [address] T BILI Normal 0.00-1.30 [facility] Comment on above: Result Comment: Canc elled via OM: Order cancelled - Patient discharged Performed By: #### L 500.4050, L100.0100 ####[facility] [address] [place], [address] T PROT Normal 5.9-8.4 [facility] Comment on above: Result Comment: Canc elled via OM: Order cancelled - Patient discharged Performed By: #### L 500.4050, L100.0100 ####[facility] [address] [place], [address] Comprehensive Metabolic Profil Normal 133-145 [facility] Comment on above: Result Comment: Canc elled via OM: Order cancelled - Patient discharged Performed By: #### L 500.4050, L100.0100 ####[facility] [address] [place], [address] CBC W/Diff, Automatedon 07-1 0-2024 Absolute Neut Normal 2.0-7.7 [facility] Comment on above: Result Comment: Canc elled via OM: Order cancelled - Patient discharged Performed By: #### L 100.0100, L500.4050 ####[facility] [address] [place], [address] HCT Normal 40-54 [facility] Comment on above: Result Comment: Canc elled via OM: Order cancelled - Patient discharged Performed By: #### L 100.0100, L500.4050 ####[facility] [address] [place], [address] HGB Normal 13.0-16.5 [facility] Comment on above: Result Comment: Canc elled via OM: Order cancelled - Patient discharged Performed By: #### L 100.0100, L500.4050 ####[facility] [address] [place], [address] MCH Normal 27.0-32.0 [facility] Comment on above: Result Comment: Canc elled via OM: Order cancelled - Patient discharged Performed By: #### L 100.0100, L500.4050 ####[facility] [address] [place], [address] MCHC Normal 32-36 [facility] Comment on above: Result Comment: Canc elled via OM: Order cancelled - Patient discharged Performed By: #### L 100.0100, L500.4050 ####[facility] [address] [place], [address] MCV Normal 80-94 [facility] Comment on above: Result Comment: Canc elled via OM: Order cancelled - Patient discharged Performed By: #### L 100.0100, L500.4050 ####[facility] [address] [place], [address] NEUT% Normal 47-70 [facility] Comment on above: Result Comment: Canc elled via OM: Order cancelled - Patient discharged Performed By: #### L 100.0100, L500.4050 ####[facility] [address] [place], [address] PLT Normal 150-450 [facility] Comment on above: Result Comment: Canc elled via OM: Order cancelled - Patient discharged Performed By: #### L 100.0100, L500.4050 ####[facility] [address] [place], [address] RBC Normal 4.6-6.2 [facility] Comment on above: Result Comment: Canc elled via OM: Order cancelled - Patient discharged Performed By: #### L 100.0100, L500.4050 ####[facility] [address] [place], [address] RDW CV Normal 11.6-14.6 [facility] Comment on above: Result Comment: Canc elled via OM: Order cancelled - Patient discharged Performed By: #### L 100.0100, L500.4050 ####[facility] [address] [place], [address] RDW SD Normal 35.1-43.9 [facility] Comment on above: Result Comment: Canc elled via OM: Order cancelled - Patient discharged Performed By: #### L 100.0100, L500.4050 ####[facility] [address] [place], [address] WBC Normal 4.4-11.0 [facility] Comment on above: Result Comment: Canc elled via OM: Order cancelled - Patient discharged Performed By: #### L 100.0100, L500.4050 ####[facility] [address] [place], [address] Comprehensive Metabolic Prof ilon 09-23-2024 ALB Normal 3.5-5.0 [facility] Comment on above: Result Comment: Canc elled via OM: Order cancelled - Patient discharged Performed By: #### L 100.0100, L500.4050 ####[facility] [address] [place], [address] ALK PHOS Normal 40-129 [facility] Comment on above: Result Comment: Canc elled via OM: Order cancelled - Patient discharged Performed By: #### L 100.0100, L500.4050 ####[facility] [address] [place], [address] ALT Normal <=46 [facility] Comment on above: Result Comment: Canc elled via OM: Order cancelled - Patient discharged Performed By: #### L 100.0100, L500.4050 ####[facility] [address] [place], [address] AST Normal <=37 [facility] Comment on above: Result Comment: Canc elled via OM: Order cancelled - Patient discharged Performed By: #### L 100.0100, L500.4050 ####[facility] [address] [place], [address] BUN Normal 4-19 [facility] Comment on above: Result Comment: Canc elled via OM: Order cancelled - Patient discharged Performed By: #### L 100.0100, L500.4050 ####[facility] [address] [place], [address] BUN/CRE Normal 10-20 [facility] Comment on above: Result Comment: Canc elled via OM: Order cancelled - Patient discharged Performed By: #### L 100.0100, L500.4050 ####[facility] [address] [place], [address] Calcium Normal 7.6-11.0 [facility] Comment on above: Result Comment: Canc elled via OM: Order cancelled - Patient discharged Performed By: #### L 100.0100, L500.4050 ####[facility] [address] [place], [address] CL Normal 98-108 [facility] Comment on above: Result Comment: Canc elled via OM: Order cancelled - Patient discharged Performed By: #### L 100.0100, L500.4050 ####[facility] [address] [place], [address] CO2 Normal 21.0-32.0 [facility] Comment on above: Result Comment: Canc elled via OM: Order cancelled - Patient discharged Performed By: #### L 100.0100, L500.4050 ####[facility] [address] [place], [address] CREAT,SERUM Normal 0.70-1.20 [facility] Comment on above: Result Comment: Canc elled via OM: Order cancelled - Patient discharged Performed By: #### L 100.0100, L500.4050 ####[facility] [address] [place], [address] eGFR Normal >60 [facility] Comment on above: Result Comment: Canc elled via OM: Order cancelled - Patient discharged Performed By: #### L 100.0100, L500.4050 ####[facility] [address] [place], [address] GAP Normal 5-15 [facility] Comment on above: Result Comment: Canc elled via OM: Order cancelled - Patient discharged Performed By: #### L 100.0100, L500.4050 ####[facility] [address] [place], [address] GLU Normal 70-99 [facility] Comment on above: Result Comment: Canc elled via OM: Order cancelled - Patient discharged Performed By: #### L 100.0100, L500.4050 ####[facility] [address] [place], [address] Potassium Normal 3.3-5.1 [facility] Comment on above: Result Comment: Canc elled via OM: Order cancelled - Patient discharged Performed By: #### L 100.0100, L500.4050 ####[facility] [address] [place], [address] T BILI Normal 0.00-1.30 [facility] Comment on above: Result Comment: Canc elled via OM: Order cancelled - Patient discharged Performed By: #### L 100.0100, L500.4050 ####[facility] [address] [place], [address] T PROT Normal 5.9-8.4 [facility] Comment on above: Result Comment: Canc elled via OM: Order cancelled - Patient discharged Performed By: #### L 100.0100, L500.4050 ####[facility] [address] [place], [address] Comprehensive Metabolic Profil Normal 133-145 [facility] Comment on above: Result Comment: Canc elled via OM: Order cancelled - Patient discharged Performed By: #### L 100.0100, L500.4050 ####[facility] [address] [place], [address] Bedside Glucoseon - FINGERSTICK GLU 130 mg/dL High 74-106 [facility] Comment on above: Result Comment: RIP MACIEL OF PATIENT CARE PER NURSING PROTOCOL Performed By: #### L 501.080 ####[facility] [address] [place], [address] CBC W/Diff, Automatedon 07-0 Absolute Lymph 2.12 X10 3/uL Normal 0.83-4.51 [facility] Comment on above: Performed By: #### L 100.0100, L500.4050 ####[facility] [address] [place], [address] Absolute Neut 6.0 X10 3/uL Normal 2.0-7.7 [facility] Comment on above: Performed By: #### L 100.0100, L500.4050 ####[facility] [address] [place], [address] Basophils/100 WBC (Bld) 0.5 % Normal 0-1 [facility] Comment on above: Performed By: #### L 100.0100, L500.4050 ####[facility] [address] [place], [address] Eosinophils/100 WBC (Bld) 3.9 % Normal 0-5 [facility] Comment on above: Performed By: #### L 100.0100, L500.4050 ####[facility] [address] [place], [address] Erythrocyte distribution width (RBC) [Ratio] 13.2 % Normal 11.6-14.6 [facility] Comment on above: Performed By: #### L 100.0100, L500.4050 ####[facility] [address] [place], [address] Hematocrit (Bld) [Volume fraction] 37.4 % Low 40-54 [facility] Comment on above: Performed By: #### L 100.0100, L500.4050 ####[facility] [address] [place], [address] Hemoglobin (Bld) [Mass/Vol] 12.5 g/dL Low 13.0-16.5 [facility] Comment on above: Performed By: #### L 100.0100, L500.4050 ####[facility] [address] [place], [address] IG% 1.200 High 0.0-0.9 [facility] Comment on above: Result Comment: IG% - Immature Granulocytes (promyelocytes, myelocytes andmetamyelocytes) > 1% indicates that a LEFT SHIFT is Present. Performed By: #### L 100.0100, L500.4050 ####[facility] [address] [place], [address] Lymphocytes/100 WBC (Bld) 22.6 % Normal 19-41 [facility] Comment on above: Performed By: #### L 100.0100, L500.4050 ####[facility] [address] [place], [address] MCH (RBC) [Entitic mass] 31.4 pg Normal 27.0-32.0 [facility] Comment on above: Performed By: #### L 100.0100, L500.4050 ####[facility] [address] [place], [address] MCHC (RBC) [Mass/Vol] 33.4 g/dL Normal 32-36 [facility] Comment on above: Performed By: #### L 100.0100, L500.4050 ####[facility] [address] [place], [address] MCV (RBC) [Entitic vol] 94.0 fL Normal 80-94 [facility] Comment on above: Performed By: #### L 100.0100, L500.4050 ####[facility] [address] [place], [address] Monocytes/100 WBC (Bld) 8.4 % Normal 0-10 [facility] Comment on above: Performed By: #### L 100.0100, L500.4050 ####[facility] [address] [place], [address] Neutrophils/100 WBC (Bld) 63.4 % Normal 47-70 [facility] Comment on above: Performed By: #### L 100.0100, L500.4050 ####[facility] [address] [place], [address] Nucleated RBC (Bld) [#/Vol] 0 10*3/uL Normal 0-5 [facility] Comment on above: Performed By: #### L 100.0100, L500.4050 ####[facility] [address] [place], [address] Platelet mean volume (Bld) [Entitic vol] 9.5 fL Normal 6.2-12.0 [facility] Comment on above: Performed By: #### L 100.0100, L500.4050 ####[facility] [address] [place], [address] Platelets (Bld) [#/Vol] 367 10*3/uL Normal 150-450 [facility] Comment on above: Performed By: #### L 100.0100, L500.4050 ####[facility] [address] [place], [address] RBC (Bld) [#/Vol] 3.98 10*6/uL Low 4.6-6.2 [facility] Comment on above: Performed By: #### L 100.0100, L500.4050 ####[facility] [address] [place], [address] RDW SD 45.9 fl High 35.1-43.9 [facility] Comment on above: Performed By: #### L 100.0100, L500.4050 ####[facility] [address] [place], [address] WBC (Bld) [#/Vol] 9.4 10*3/uL Normal 4.4-11.0 [facility] Comment on above: Performed By: #### L 100.0100, L500.4050 ####[facility] [address] [place], [address] Comprehensive Metabolic Prof [facility] 09-22-2024 Albumin [Mass/Vol] 2.9 g/dL Low 3.5-5.0 [facility] Comment on above: Performed By: #### L 100.0100, L500.4050 ####[facility] [address] [place], [address] Albumin/Globulin [Mass ratio] 0.7 {ratio} Low 0.9-2.4 [facility] Comment on above: Performed By: #### L 100.0100, L500.4050 ####[facility] [address] [place], [address] ALK PHOS 90 U/L Normal 40-129 [facility] Comment on above: Performed By: #### L 100.0100, L500.4050 ####[facility] [address] [place], [address] ALT [Catalytic activity/Vol] 12 U/L Normal <=46 [facility] Comment on above: Performed By: #### L 100.0100, L500.4050 ####[facility] [address] [place], [address] AST [Catalytic activity/Vol] 12 U/L Normal <=37 [facility] Comment on above: Performed By: #### L 100.0100, L500.4050 ####[facility] [address] [place], [address] Bilirubin [Mass/Vol] 0.39 mg/dL Normal 0.00-1.30 [facility] Comment on above: Performed By: #### L 100.0100, L500.4050 ####[facility] [address] [place], [address] BUN/CRE 16.2 RATIO Normal 10-20 [facility] Comment on above: Performed By: #### L 100.0100, L500.4050 ####[facility] [address] [place], [address] Calcium [Mass/Vol] 9.2 mg/dL Normal 7.6-11.0 [facility] Comment on above: Performed By: #### L 100.0100, L500.4050 ####[facility] [address] [place], [address] Chloride [Moles/Vol] 100 mmol/L Normal 98-108 [facility] Comment on above: Performed By: #### L 100.0100, L500.4050 ####[facility] [address] [place], [address] CO2 [Moles/Vol] 25.1 mmol/L Normal 21.0-32.0 [facility] Comment on above: Performed By: #### L 100.0100, L500.4050 ####[facility] [address] [place], [address] Creatinine [Mass/Vol] 0.69 mg/dL Low 0.70-1.20 [facility] Comment on above: Performed By: #### L 100.0100, L500.4050 ####[facility] [address] [place], [address] ECRCL 208.48 ml/min Normal 50-250 [facility] Comment on above: Performed By: #### L 100.0100, L500.4050 ####[facility] [address] [place], [address] GAP 11 Normal 5-15 [facility] Comment on above: Performed By: #### L 100.0100, L500.4050 ####[facility] [address] [place], [address] GFR/1.73 sq M.predicted among non-blacks MDRD (S/P/Bld) [Vol rate/Area] 113 mL/min/{1.73_m2} Normal >60 [facility] Comment on above: Result Comment: mL/m in/1.73m2 CKD-EPI Creatinine Equation (2020) Performed By: #### L 100.0100, L500.4050 ####[facility] [address] [place], [address] Globulin (S) [Mass/Vol] 4.4 g/dL High 2.2-4.2 [facility] Comment on above: Performed By: #### L 100.0100, L500.4050 ####[facility] [address] [place], [address] Glucose [Mass/Vol] 124 mg/dL High 70-99 [facility] Comment on above: Performed By: #### L 100.0100, L500.4050 ####[facility] [address] [place], [address] Potassium [Moles/Vol] 4.0 mmol/L Normal 3.3-5.1 [facility] Comment on above: Performed By: #### L 100.0100, L500.4050 ####[facility] [address] [place], [address] Sodium [Moles/Vol] 135 mmol/L Normal 133-145 [facility] Comment on above: Performed By: #### L 100.0100, L500.4050 ####[facility] [address] [place], [address] T PROT 7.4 g/dL Normal 5.9-8.4 [facility] Comment on above: Performed By: #### L 100.0100, L500.4050 ####[facility] [address] [place], [address] Urea nitrogen [Mass/Vol] 11 mg/dL Normal 4-19 [facility] Comment on above: Performed By: #### L 100.0100, L500.4050 ####[facility] [address] [place], [address] Culture, Anaerobic Any Sourc surinder 09-22-2024 CUAN List Antibiotics Las t 48 Hours? Unasyn, vancomycin No anaerobic bacteria isolated. Normal [facility] Comment on above: Performed By: #### M 100.3000, M100.4001, M100.2000 ####[facility] [address] [place], [address] Bedside Glucoseon 09-21-2024 FINGERSTICK GLU 255 mg/dL High 74-106 [facility] Comment on above: Result Comment: RIP GEMENT OF PATIENT CARE PER NURSING PROTOCOL Performed By: #### L 501.080 ####[facility] [address] [place], [address] FINGERSTICK GLU 149 mg/dL High 74-106 [facility] Comment on above: Result Comment: RIP GEMENT OF PATIENT CARE PER NURSING PROTOCOL Performed By: #### L 501.080 ####[facility] [address] [place], [address] FINGERSTICK GLU 298 mg/dL High 74-106 [facility] Comment on above: Result Comment: RIP GEMENT OF PATIENT CARE PER NURSING PROTOCOL Performed By: #### L 501.080 ####[facility] [address] [place], [address] FINGERSTICK GLU 234 mg/dL High 74-106 [facility] Comment on above: Result Comment: RIP GEMENT OF PATIENT CARE PER NURSING PROTOCOL Performed By: #### L 501.080 ####[facility] [address] [place], [address] CBC W/Diff, Automatedon 07-0 8-5 Absolute Lymph 2.24 X10 3/uL Normal 0.83-4.51 [facility] Comment on above: Performed By: #### L 100.0100, L500.4050 ####[facility] [address] [place], [address] Absolute Neut 6.0 X10 3/uL Normal 2.0-7.7 [facility] Comment on above: Performed By: #### L 100.0100, L500.4050 ####[facility] [address] [place], [address] Basophils/100 WBC (Bld) 0.8 % Normal 0-1 [facility] Comment on above: Performed By: #### L 100.0100, L500.4050 ####[facility] [address] [place], [address] Eosinophils/100 WBC (Bld) 3.4 % Normal 0-5 [facility] Comment on above: Performed By: #### L 100.0100, L500.4050 ####[facility] [address] [place], [address] Erythrocyte distribution width (RBC) [Ratio] 13.3 % Normal 11.6-14.6 [facility] Comment on above: Performed By: #### L 100.0100, L500.4050 ####[facility] [address] [place], [address] Hematocrit (Bld) [Volume fraction] 36.6 % Low 40-54 [facility] Comment on above: Performed By: #### L 100.0100, L500.4050 ####[facility] [address] [place], [address] Hemoglobin (Bld) [Mass/Vol] 12.4 g/dL Low 13.0-16.5 [facility] Comment on above: Performed By: #### L 100.0100, L500.4050 ####[facility] [address] [place], [address] IG% 2.000 High 0.0-0.9 [facility] Comment on above: Result Comment: IG% - Immature Granulocytes (promyelocytes, myelocytes andmetamyelocytes) > 1% indicates that a LEFT SHIFT is Present. Performed By: #### L 100.0100, L500.4050 ####[facility] [address] [place], [address] Lymphocytes/100 WBC (Bld) 23.3 % Normal 19-41 [facility] Comment on above: Performed By: #### L 100.0100, L500.4050 ####[facility] [address] [place], [address] MCH (RBC) [Entitic mass] 31.6 pg Normal 27.0-32.0 [facility] Comment on above: Performed By: #### L 100.0100, L500.4050 ####[facility] [address] [place], [address] MCHC (RBC) [Mass/Vol] 33.9 g/dL Normal 32-36 [facility] Comment on above: Performed By: #### L 100.0100, L500.4050 ####[facility] [address] [place], [address] MCV (RBC) [Entitic vol] 93.1 fL Normal 80-94 [facility] Comment on above: Performed By: #### L 100.0100, L500.4050 ####[facility] [address] [place], [address] Monocytes/100 WBC (Bld) 8.1 % Normal 0-10 [facility] Comment on above: Performed By: #### L 100.0100, L500.4050 ####[facility] [address] [place], [address] Neutrophils/100 WBC (Bld) 62.4 % Normal 47-70 [facility] Comment on above: Performed By: #### L 100.0100, L500.4050 ####[facility] [address] [place], [address] Nucleated RBC (Bld) [#/Vol] 0 10*3/uL Normal 0-5 [facility] Comment on above: Performed By: #### L 100.0100, L500.4050 ####[facility] [address] [place], [address] Platelet mean volume (Bld) [Entitic vol] 9.5 fL Normal 6.2-12.0 [facility] Comment on above: Performed By: #### L 100.0100, L500.4050 ####[facility] [address] [place], [address] Platelets (Bld) [#/Vol] 300 10*3/uL Normal 150-450 [facility] Comment on above: Performed By: #### L 100.0100, L500.4050 ####[facility] [address] [place], [address] RBC (Bld) [#/Vol] 3.93 10*6/uL Low 4.6-6.2 [facility] Comment on above: Performed By: #### L 100.0100, L500.4050 ####[facility] [address] [place], [address] RDW SD 45.6 fl High 35.1-43.9 [facility] Comment on above: Performed By: #### L 100.0100, L500.4050 ####[facility] [address] [place], [address] WBC (Bld) [#/Vol] 9.6 10*3/uL Normal 4.4-11.0 [facility] Comment on above: Performed By: #### L 100.0100, L500.4050 ####[facility] [address] [place], [address] Comprehensive Metabolic Prof [facility] 09-21-2024 Albumin [Mass/Vol] 2.9 g/dL Low 3.5-5.0 [facility] Comment on above: Performed By: #### L 100.0100, L500.4050 ####[facility] [address] [place], [address] Albumin/Globulin [Mass ratio] 0.8 {ratio} Low 0.9-2.4 [facility] Comment on above: Performed By: #### L 100.0100, L500.4050 ####[facility] [address] [place], [address] ALK PHOS 104 U/L Normal 40-129 [facility] Comment on above: Performed By: #### L 100.0100, L500.4050 ####[facility] [address] [place], [address] ALT [Catalytic activity/Vol] 10 U/L Normal <=46 [facility] Comment on above: Performed By: #### L 100.0100, L500.4050 ####[facility] [address] [place], [address] AST [Catalytic activity/Vol] 13 U/L Normal <=37 [facility] Comment on above: Performed By: #### L 100.0100, L500.4050 ####[facility] [address] [place], [address] Bilirubin [Mass/Vol] 0.21 mg/dL Normal 0.00-1.30 [facility] Comment on above: Performed By: #### L 100.0100, L500.4050 ####[facility] [address] [place], [address] BUN/CRE 19.1 RATIO Normal 10-20 [facility] Comment on above: Performed By: #### L 100.0100, L500.4050 ####[facility] [address] [place], [address] Calcium [Mass/Vol] 9.0 mg/dL Normal 7.6-11.0 [facility] Comment on above: Performed By: #### L 100.0100, L500.4050 ####[facility] [address] [place], [address] Chloride [Moles/Vol] 101 mmol/L Normal 98-108 [facility] Comment on above: Performed By: #### L 100.0100, L500.4050 ####[facility] [address] [place], [address] CO2 [Moles/Vol] 26.0 mmol/L Normal 21.0-32.0 [facility] Comment on above: Performed By: #### L 100.0100, L500.4050 ####[facility] [address] [place], [address] Creatinine [Mass/Vol] 0.65 mg/dL Low 0.70-1.20 [facility] Comment on above: Performed By: #### L 100.0100, L500.4050 ####[facility] [address] [place], [address] ECRCL 221.54 ml/min Normal 50-250 [facility] Comment on above: Performed By: #### L 100.0100, L500.4050 ####[facility] [address] [place], [address] GAP 9 Normal 5-15 [facility] Comment on above: Performed By: #### L 100.0100, L500.4050 ####[facility] [address] [place], [address] GFR/1.73 sq M.predicted among non-blacks MDRD (S/P/Bld) [Vol rate/Area] 115 mL/min/{1.73_m2} Normal >60 [facility] Comment on above: Result Comment: mL/m in/1.73m2 CKD-EPI Creatinine Equation (2020) Performed By: #### L 100.0100, L500.4050 ####[facility] [address] [place], [address] Globulin (S) [Mass/Vol] 3.8 g/dL Normal 2.2-4.2 [facility] Comment on above: Performed By: #### L 100.0100, L500.4050 ####[facility] [address] [place], [address] Glucose [Mass/Vol] 223 mg/dL High 70-99 [facility] Comment on above: Performed By: #### L 100.0100, L500.4050 ####[facility] [address] [place], [address] Potassium [Moles/Vol] 3.9 mmol/L Normal 3.3-5.1 [facility] Comment on above: Performed By: #### L 100.0100, L500.4050 ####[facility] [address] [place], [address] Sodium [Moles/Vol] 137 mmol/L Normal 133-145 [facility] Comment on above: Performed By: #### L 100.0100, L500.4050 ####[facility] [address] [place], [address] T PROT 6.7 g/dL Normal 5.9-8.4 [facility] Comment on above: Performed By: #### L 100.0100, L500.4050 ####[facility] [address] [place], [address] Urea nitrogen [Mass/Vol] 12 mg/dL Normal 4-19 [facility] Comment on above: Performed By: #### L 100.0100, L500.4050 ####[facility] [address] [place], [address] Wound Cultureon 09-21-2024 WC Normal [facility] Comment on above: Performed By: #### M 100.3000, M100.4001, M100.2000 ####[facility] [address] [place], [address] Basic Metabolic Profile (BMP )on 09-20-2024 BUN/CRE 14.2 RATIO Normal 10-20 [facility] Comment on above: Performed By: #### L 500.2500, L100.0100 ####[facility] [address] [place], [address] Calcium [Mass/Vol] 8.7 mg/dL Normal 7.6-11.0 [facility] Comment on above: Performed By: #### L 500.2500, L100.0100 ####[facility] [address] [place], [address] Chloride [Moles/Vol] 98 mmol/L Normal 98-108 [facility] Comment on above: Performed By: #### L 500.2500, L100.0100 ####[facility] [address], [address] CO2 [Moles/Vol] 24.3 mmol/L Normal 21.0-32.0 [facility] Comment on above: Performed By: #### L 500.2500, L100.0100 ####[facility] [address], [address] Creatinine [Mass/Vol] 0.71 mg/dL Normal 0.70-1.20 [facility] Comment on above: Performed By: #### L 500.2500, L100.0100 ####[facility] [address] [place], [address] ECRCL 201.69 ml/min Normal 50-250 [facility] Comment on above: Performed By: #### L 500.2500, L100.0100 ####[facility] [address] [place], [address] GAP 9 Normal 5-15 [facility] Comment on above: Performed By: #### L 500.2500, L100.0100 ####[facility] [address] [place], [address] GFR/1.73 sq M.predicted among non-blacks MDRD (S/P/Bld) [Vol rate/Area] 112 mL/min/{1.73_m2} Normal >60 [facility] Comment on above: Result Comment: mL/m in/1.73m2 CKD-EPI Creatinine Equation (2020) Performed By: #### L 500.2500, L100.0100 ####[facility] [address] [place], [address] Glucose [Mass/Vol] 314 mg/dL High 70-99 [facility] Comment on above: Performed By: #### L 500.2500, L100.0100 ####[facility] [address] [place], [address] Potassium [Moles/Vol] 3.8 mmol/L Normal 3.3-5.1 [facility] Comment on above: Performed By: #### L 500.2500, L100.0100 ####[facility] [address] [place], [address] Sodium [Moles/Vol] 132 mmol/L Low 133-145 [facility] Comment on above: Performed By: #### L 500.2500, L100.0100 ####[facility] [address] [place], [address] Urea nitrogen [Mass/Vol] 10 mg/dL Normal 4-19 [facility] Comment on above: Performed By: #### L 500.2500, L100.0100 ####[facility] [address] [place], [address] Bedside Glucoseon 09-20-2024 FINGERSTICK GLU 296 mg/dL High 74-106 [facility] Comment on above: Result Comment: RIP GEMENT OF PATIENT CARE PER NURSING PROTOCOL Performed By: #### L 501.080 ####[facility] [address] [place], [address] FINGERSTICK GLU 186 mg/dL High 74-106 [facility] Comment on above: Result Comment: RIP GEMENT OF PATIENT CARE PER NURSING PROTOCOL Performed By: #### L 501.080 ####[facility] [address], [address] FINGERSTICK GLU 213 mg/dL High 74-106 [facility] Comment on above: Result Comment: RIP GEMENT OF PATIENT CARE PER NURSING PROTOCOL Performed By: #### L 501.080 ####[facility] [address] [place], [address] FINGERSTICK GLU 268 mg/dL High 74-106 [facility] Comment on above: Result Comment: RIP GEMENT OF PATIENT CARE PER NURSING PROTOCOL Performed By: #### L 501.080 ####[facility] [address] [place], [address] CBC W/Diff, Automatedon 07-0 7-2025 Absolute Lymph 2.16 X10 3/uL Normal 0.83-4.51 [facility] Comment on above: Performed By: #### L 500.2500, L100.0100 ####[facility] [address] [place], [address] Absolute Neut 7.0 X10 3/uL Normal 2.0-7.7 [facility] Comment on above: Performed By: #### L 500.2500, L100.0100 ####[facility] [address] [place], [address] Basophils/100 WBC (Bld) 0.5 % Normal 0-1 [facility] Comment on above: Performed By: #### L 500.2500, L100.0100 ####[facility] [address] [place], [address] Eosinophils/100 WBC (Bld) 2.3 % Normal 0-5 [facility] Comment on above: Performed By: #### L 500.2500, L100.0100 ####[facility] [address], [address] Erythrocyte distribution width (RBC) [Ratio] 13.2 % Normal 11.6-14.6 [facility] Comment on above: Performed By: #### L 500.2500, L100.0100 ####[facility] [address] [place], [address] Hematocrit (Bld) [Volume fraction] 36.3 % Low 40-54 [facility] Comment on above: Performed By: #### L 500.2500, L100.0100 ####[facility] [address] [place], [address] Hemoglobin (Bld) [Mass/Vol] 12.6 g/dL Low 13.0-16.5 [facility] Comment on above: Performed By: #### L 500.2500, L100.0100 ####[facility] [address] [place], [address] IG% 1.400 High 0.0-0.9 [facility] Comment on above: Result Comment: IG% - Immature Granulocytes (promyelocytes, myelocytes andmetamyelocytes) > 1% indicates that a LEFT SHIFT is Present. Performed By: #### L 500.2500, L100.0100 ####[facility] [address] [place], [address] Lymphocytes/100 WBC (Bld) 20.6 % Normal 19-41 [facility] Comment on above: Performed By: #### L 500.2500, L100.0100 ####[facility] [address] [place], [address] MCH (RBC) [Entitic mass] 32.0 pg Normal 27.0-32.0 [facility] Comment on above: Performed By: #### L 500.2500, L100.0100 ####[facility] [address] [place], [address] MCHC (RBC) [Mass/Vol] 34.7 g/dL Normal 32-36 [facility] Comment on above: Performed By: #### L 500.2500, L100.0100 ####[facility] [address] [place], [address] MCV (RBC) [Entitic vol] 92.1 fL Normal 80-94 [facility] Comment on above: Performed By: #### L 500.2500, L100.0100 ####[facility] [address] [place], [address] Monocytes/100 WBC (Bld) 8.3 % Normal 0-10 [facility] Comment on above: Performed By: #### L 500.2500, L100.0100 ####[facility] [address] [place], [address] Neutrophils/100 WBC (Bld) 66.9 % Normal 47-70 [facility] Comment on above: Performed By: #### L 500.2500, L100.0100 ####[facility] [address] [place], [address] Nucleated RBC (Bld) [#/Vol] 0 10*3/uL Normal 0-5 [facility] Comment on above: Performed By: #### L 500.2500, L100.0100 ####[facility] [address] [place], [address] Platelet mean volume (Bld) [Entitic vol] 9.3 fL Normal 6.2-12.0 [facility] Comment on above: Performed By: #### L 500.2500, L100.0100 ####[facility] [address] [place], [address] Platelets (Bld) [#/Vol] 297 10*3/uL Normal 150-450 [facility] Comment on above: Performed By: #### L 500.2500, L100.0100 ####[facility] [address] [place], [address] RBC (Bld) [#/Vol] 3.94 10*6/uL Low 4.6-6.2 [facility] Comment on above: Performed By: #### L 500.2500, L100.0100 ####[facility] [address] [place], [address] RDW SD 45.1 fl High 35.1-43.9 [facility] Comment on above: Performed By: #### L 500.2500, L100.0100 ####[facility] [address] [place], [address] WBC (Bld) [#/Vol] 10.5 10*3/uL Normal 4.4-11.0 [facility] Comment on above: Performed By: #### L 500.2500, L100.0100 ####[facility] [address] [place], [address] Consultation - Infectious Dx on 09-20-2024 Consultation - Infectious Dx Normal [facility] Gram Stainon 09-20-2024 GS List Antibiotics Las t 48 Hours? Unasyn, vancomycin Gram Stain No organisms seen No cells seen Normal [facility] Comment on above: Performed By: #### M 100.3000, M100.4001, M100.2000 ####[facility] [address] [place], [address] Basic Metabolic Profile (BMP )on 09-19-2024 BUN/CRE 21.5 RATIO High 10-20 [facility] Comment on above: Performed By: #### L 500.2500, L100.0100 ####[facility] [address] [place], [address] Calcium [Mass/Vol] 8.6 mg/dL Normal 7.6-11.0 [facility] Comment on above: Performed By: #### L 500.2500, L100.0100 ####[facility] [address] [place], [address] Chloride [Moles/Vol] 98 mmol/L Normal 98-108 [facility] Comment on above: Performed By: #### L 500.2500, L100.0100 ####[facility] [address] [place], [address] CO2 [Moles/Vol] 23.9 mmol/L Normal 21.0-32.0 [facility] Comment on above: Performed By: #### L 500.2500, L100.0100 ####[facility] [address] [place], [address] Creatinine [Mass/Vol] 0.64 mg/dL Low 0.70-1.20 [facility] Comment on above: Performed By: #### L 500.2500, L100.0100 ####[facility] [address] [place], [address] ECRCL 223.59 ml/min Normal 50-250 [facility] Comment on above: Performed By: #### L 500.2500, L100.0100 ####[facility] [address] [place], [address] GAP 11 Normal 5-15 [facility] Comment on above: Performed By: #### L 500.2500, L100.0100 ####[facility] [address] [place], [address] GFR/1.73 sq M.predicted among non-blacks MDRD (S/P/Bld) [Vol rate/Area] 116 mL/min/{1.73_m2} Normal >60 [facility] Comment on above: Result Comment: mL/m in/1.73m2 CKD-EPI Creatinine Equation (2020) Performed By: #### L 500.2500, L100.0100 ####[facility] [address] [place], [address] Glucose [Mass/Vol] 341 mg/dL High 70-99 [facility] Comment on above: Performed By: #### L 500.2500, L100.0100 ####[facility] [address] [place], [address] Potassium [Moles/Vol] 3.7 mmol/L Normal 3.3-5.1 [facility] Comment on above: Performed By: #### L 500.2500, L100.0100 ####[facility] [address] [place], [address] Sodium [Moles/Vol] 133 mmol/L Normal 133-145 [facility] Comment on above: Performed By: #### L 500.2500, L100.0100 ####[facility] [address] [place], [address] Urea nitrogen [Mass/Vol] 14 mg/dL Normal 4-19 [facility] Comment on above: Performed By: #### L 500.2500, L100.0100 ####[facility] [address] [place], [address] Bedside Glucoseon 09-19-2024 FINGERSTICK GLU 331 mg/dL High 74-106 [facility] Comment on above: Result Comment: RIP GEMENT OF PATIENT CARE PER NURSING PROTOCOL Performed By: #### L 501.080 ####[facility] [address] [place], [address] FINGERSTICK GLU 238 mg/dL High 74-106 [facility] Comment on above: Result Comment: RIP GEMENT OF PATIENT CARE PER NURSING PROTOCOL Performed By: #### L 501.080 ####[facility] [address] [place], [address] FINGERSTICK GLU 256 mg/dL High 74-106 [facility] Comment on above: Result Comment: RIP GEMENT OF PATIENT CARE PER NURSING PROTOCOL Performed By: #### L 501.080 ####[facility] [address] [place], [address] FINGERSTICK GLU 309 mg/dL High 74-106 [facility] Comment on above: Result Comment: RIP MACIEL OF PATIENT CARE PER NURSING PROTOCOL Performed By: #### L 501.080 ####[facility] [address] [place], [address] CBC W/Diff, Automatedon 07-0 6-2024 Absolute Lymph 1.83 X10 3/uL Normal 0.83-4.51 [facility] Comment on above: Performed By: #### L 500.2500, L100.0100 ####[facility] [address] [place], [address] Absolute Neut 5.8 X10 3/uL Normal 2.0-7.7 [facility] Comment on above: Performed By: #### L 500.2500, L100.0100 ####[facility] [address] [place], [address] Basophils/100 WBC (Bld) 0.6 % Normal 0-1 [facility] Comment on above: Performed By: #### L 500.2500, L100.0100 ####[facility] [address] [place], [address] Eosinophils/100 WBC (Bld) 2.6 % Normal 0-5 [facility] Comment on above: Performed By: #### L 500.2500, L100.0100 ####[facility] [address] [place], [address] Erythrocyte distribution width (RBC) [Ratio] 13.6 % Normal 11.6-14.6 [facility] Comment on above: Performed By: #### L 500.2500, L100.0100 ####[facility] [address] [place], [address] Hematocrit (Bld) [Volume fraction] 35.8 % Low 40-54 [facility] Comment on above: Performed By: #### L 500.2500, L100.0100 ####[facility] [address] [place], [address] Hemoglobin (Bld) [Mass/Vol] 12.4 g/dL Low 13.0-16.5 [facility] Comment on above: Performed By: #### L 500.2500, L100.0100 ####[facility] [address] [place], [address] IG% 0.800 Normal 0.0-0.9 [facility] Comment on above: Result Comment: IG% - Immature Granulocytes (promyelocytes, myelocytes andmetamyelocytes) > 1% indicates that a LEFT SHIFT is Present. Performed By: #### L 500.2500, L100.0100 ####[facility] [address] [place], [address] Lymphocytes/100 WBC (Bld) 20.9 % Normal 19-41 [facility] Comment on above: Performed By: #### L 500.2500, L100.0100 ####[facility] [address] [place], [address] MCH (RBC) [Entitic mass] 31.9 pg Normal 27.0-32.0 [facility] Comment on above: Performed By: #### L 500.2500, L100.0100 ####[facility] [address] [place], [address] MCHC (RBC) [Mass/Vol] 34.6 g/dL Normal 32-36 [facility] Comment on above: Performed By: #### L 500.2500, L100.0100 ####[facility] [address] [place], [address] MCV (RBC) [Entitic vol] 92.0 fL Normal 80-94 [facility] Comment on above: Performed By: #### L 500.2500, L100.0100 ####[facility] [address] [place], [address] Monocytes/100 WBC (Bld) 9.3 % Normal 0-10 [facility] Comment on above: Performed By: #### L 500.2500, L100.0100 ####[facility] [address] [place], [address] Neutrophils/100 WBC (Bld) 65.8 % Normal 47-70 [facility] Comment on above: Performed By: #### L 500.2500, L100.0100 ####[facility] [address] [place], [address] Nucleated RBC (Bld) [#/Vol] 0 10*3/uL Normal 0-5 [facility] Comment on above: Performed By: #### L 500.2500, L100.0100 ####[facility] [address] [place], [address] Platelet mean volume (Bld) [Entitic vol] 9.7 fL Normal 6.2-12.0 [facility] Comment on above: Performed By: #### L 500.2500, L100.0100 ####[facility] [address] [place], [address] Platelets (Bld) [#/Vol] 259 10*3/uL Normal 150-450 [facility] Comment on above: Performed By: #### L 500.2500, L100.0100 ####[facility] [address] [place], [address] RBC (Bld) [#/Vol] 3.89 10*6/uL Low 4.6-6.2 [facility] Comment on above: Performed By: #### L 500.2500, L100.0100 ####[facility] [address] [place], [address] RDW SD 46.3 fl High 35.1-43.9 [facility] Comment on above: Performed By: #### L 500.2500, L100.0100 ####[facility] [address] [place], [address] WBC (Bld) [#/Vol] 8.8 10*3/uL Normal 4.4-11.0 [facility] Comment on above: Performed By: #### L 500.2500, L100.0100 ####[facility] [address] [place], [address] MRSA Wound DNA by PCRon MRSA DNA ASSAY Positive Abnormal Negative [facility] Comment on above: Order Comment: Right heel, Left foot Performed By: #### L 8200.1075 ####[facility] [address] [place], [address] SA DNA ASSAY Positive Abnormal Negative [facility] Comment on above: Order Comment: Right heel, Left foot Performed By: #### L 8200.1075 ####[facility] [address] [place], [address] Basic Metabolic Profile (BMP )on 09-18-2024 BUN/CRE 28.8 RATIO High 10-20 [facility] Comment on above: Performed By: #### L 500.2500, L100.0100 ####[facility] [address] [place], [address] Calcium [Mass/Vol] 8.4 mg/dL Normal 7.6-11.0 [facility] Comment on above: Performed By: #### L 500.2500, L100.0100 ####[facility] [address] [place], [address] Chloride [Moles/Vol] 100 mmol/L Normal 98-108 [facility] Comment on above: Performed By: #### L 500.2500, L100.0100 ####[facility] [address] [place], [address] CO2 [Moles/Vol] 23.3 mmol/L Normal 21.0-32.0 [facility] Comment on above: Performed By: #### L 500.2500, L100.0100 ####[facility] [address] [place], [address] Creatinine [Mass/Vol] 0.62 mg/dL Low 0.70-1.20 [facility] Comment on above: Performed By: #### L 500.2500, L100.0100 ####[facility] [address] [place], [address] ECRCL 230.81 ml/min Normal 50-250 [facility] Comment on above: Performed By: #### L 500.2500, L100.0100 ####[facility] [address] [place], [address] GAP 9 Normal 5-15 [facility] Comment on above: Performed By: #### L 500.2500, L100.0100 ####[facility] [address] [place], [address] GFR/1.73 sq M.predicted among non-blacks MDRD (S/P/Bld) [Vol rate/Area] 116 mL/min/{1.73_m2} Normal >60 [facility] Comment on above: Result Comment: mL/m in/1.73m2 CKD-EPI Creatinine Equation (2020) Performed By: #### L 500.2500, L100.0100 ####[facility] [address] [place], [address] Glucose [Mass/Vol] 322 mg/dL High 70-99 [facility] Comment on above: Performed By: #### L 500.2500, L100.0100 ####[facility] [address] [place], [address] Potassium [Moles/Vol] 3.7 mmol/L Normal 3.3-5.1 [facility] Comment on above: Performed By: #### L 500.2500, L100.0100 ####[facility] [address] [place], [address] Sodium [Moles/Vol] 133 mmol/L Normal 133-145 [facility] Comment on above: Performed By: #### L 500.2500, L100.0100 ####[facility] [address] [place], [address] Urea nitrogen [Mass/Vol] 18 mg/dL Normal 4-19 [facility] Comment on above: Performed By: #### L 500.2500, L100.0100 ####[facility] [address] [place], [address] Bedside Glucoseon 09-18-2024 FINGERSTICK GLU 358 mg/dL High 74-106 [facility] Comment on above: Result Comment: RIP GEMENT OF PATIENT CARE PER NURSING PROTOCOL Performed By: #### L 501.080 ####[facility] [address] [place], [address] FINGERSTICK GLU 189 mg/dL High 74-106 [facility] Comment on above: Result Comment: RIP GEMENT OF PATIENT CARE PER NURSING PROTOCOL Performed By: #### L 501.080 ####[facility] [address] [place], [address] FINGERSTICK GLU 260 mg/dL High 74-106 [facility] Comment on above: Result Comment: RIP GEMENT OF PATIENT CARE PER NURSING PROTOCOL Performed By: #### L 501.080 ####[facility] [address] [place], [address] FINGERSTICK GLU 362 mg/dL High 74-106 [facility] Comment on above: Result Comment: RIP GEMENT OF PATIENT CARE PER NURSING PROTOCOL Performed By: #### L 501.080 ####[facility] [address], [address] CBC W/Diff, Automatedon 07-0 5-2025 Absolute Lymph 1.60 X10 3/uL Normal 0.83-4.51 [facility] Comment on above: Performed By: #### L 500.2500, L100.0100 ####[facility] [address] [place], [address] Absolute Neut 3.7 X10 3/uL Normal 2.0-7.7 [facility] Comment on above: Performed By: #### L 500.2500, L100.0100 ####[facility] [address] [place], [address] Basophils/100 WBC (Bld) 0.6 % Normal 0-1 [facility] Comment on above: Performed By: #### L 500.2500, L100.0100 ####[facility] [address] [place], [address] Eosinophils/100 WBC (Bld) 3.1 % Normal 0-5 [facility] Comment on above: Performed By: #### L 500.2500, L100.0100 ####[facility] [address] [place], [address] Erythrocyte distribution width (RBC) [Ratio] 13.7 % Normal 11.6-14.6 [facility] Comment on above: Performed By: #### L 500.2500, L100.0100 ####[facility] [address] [place], [address] Hematocrit (Bld) [Volume fraction] 36.0 % Low 40-54 [facility] Comment on above: Performed By: #### L 500.2500, L100.0100 ####[facility] [address] [place], [address] Hemoglobin (Bld) [Mass/Vol] 12.3 g/dL Low 13.0-16.5 [facility] Comment on above: Performed By: #### L 500.2500, L100.0100 ####[facility] [address] [place], [address] IG% 0.600 Normal 0.0-0.9 [facility] Comment on above: Result Comment: IG% - Immature Granulocytes (promyelocytes, myelocytes andmetamyelocytes) > 1% indicates that a LEFT SHIFT is Present. Performed By: #### L 500.2500, L100.0100 ####[facility] [address] [place], [address] Lymphocytes/100 WBC (Bld) 25.2 % Normal 19-41 [facility] Comment on above: Performed By: #### L 500.2500, L100.0100 ####[facility] [address] [place], [address] MCH (RBC) [Entitic mass] 31.8 pg Normal 27.0-32.0 [facility] Comment on above: Performed By: #### L 500.2500, L100.0100 ####[facility] [address] [place], [address] MCHC (RBC) [Mass/Vol] 34.2 g/dL Normal 32-36 [facility] Comment on above: Performed By: #### L 500.2500, L100.0100 ####[facility] [address] [place], [address] MCV (RBC) [Entitic vol] 93.0 fL Normal 80-94 [facility] Comment on above: Performed By: #### L 500.2500, L100.0100 ####[facility] [address] [place], [address] Monocytes/100 WBC (Bld) 11.7 % High 0-10 [facility] Comment on above: Performed By: #### L 500.2500, L100.0100 ####[facility] [address] [place], [address] Neutrophils/100 WBC (Bld) 58.8 % Normal 47-70 [facility] Comment on above: Performed By: #### L 500.2500, L100.0100 ####[facility] [address] [place], [address] Nucleated RBC (Bld) [#/Vol] 0 10*3/uL Normal 0-5 [facility] Comment on above: Performed By: #### L 500.2500, L100.0100 ####[facility] [address] [place], [address] Platelet mean volume (Bld) [Entitic vol] 9.8 fL Normal 6.2-12.0 [facility] Comment on above: Performed By: #### L 500.2500, L100.0100 ####[facility] [address] [place], [address] Platelets (Bld) [#/Vol] 228 10*3/uL Normal 150-450 [facility] Comment on above: Performed By: #### L 500.2500, L100.0100 ####[facility] [address] [place], [address] RBC (Bld) [#/Vol] 3.87 10*6/uL Low 4.6-6.2 [facility] Comment on above: Performed By: #### L 500.2500, L100.0100 ####[facility] [address] [place], [address] RDW SD 47.1 fl High 35.1-43.9 [facility] Comment on above: Performed By: #### L 500.2500, L100.0100 ####[facility] [address] [place], [address] WBC (Bld) [#/Vol] 6.4 10*3/uL Normal 4.4-11.0 [facility] Comment on above: Performed By: #### L 500.2500, L100.0100 ####[facility] [address] [place], [address] Bedside Glucoseon 2024 FINGERSTICK GLU 347 mg/dL High [address] [place] [address] Comment on above: Result Comment: RIP GEMENT OF PATIENT CARE PER NURSING PROTOCOL Performed By: #### L 501.080 ####[facility] [address] [place], [address] FINGERSTICK GLU 328 mg/dL High [address] [place] [address] Comment on above: Result Comment: RIP GEMENT OF PATIENT CARE PER NURSING PROTOCOL Performed By: #### L 501.080 ####[facility] [address] [place], [address] FINGERSTICK GLU 256 mg/dL High [address] [place] [address] Comment on above: Result Comment: RIP GEMENT OF PATIENT CARE PER NURSING PROTOCOL Performed By: #### L 501.080 ####[facility] [address] [place], [address] FINGERSTICK GLU 271 mg/dL High [address] [place] [address] Comment on above: Result Comment: RIP GEMENT OF PATIENT CARE PER NURSING PROTOCOL Performed By: #### L 501.080 ####[facility] [address] [place], [address] FINGERSTICK GLU 314 mg/dL High -[address] [place] [address] Comment on above: Result Comment: RIP GEMENT OF PATIENT CARE PER NURSING PROTOCOL Performed By: #### L 501.080 ####[facility] [address] [place], [address] Vancomycin, Trough Levelon 0 2024 VANCO, TROUGH 18.0 ug/mL High 5.0-15.0 [facility] Comment on above: Order Comment: Comme nts: Trough to be drawn 30 mins prior to scheduled [id number] Result Comment: Man mmended goal trough ranges are generally 10-15 mcg/mlfor less severe/complicated infections such as cellulitisor UTI and 15-20 mcg/ml for more severe/complicatedinfections such as bacteremia/sepsis, osteomyelitis,pneumonia or meningitis. Goal trough ranges should takeinto account indication, patient-specific factors andorganism KIMMIE.VANCOMYCIN STANDARED DRUG THERAPY TROUGH LEVEL: 5.0 - 15.0 mg/LVANCOMYCIN HIGH INTENSITY THERAPY TROUGH LEVEL: 15.0 - 20.0 mg/LHigh Intensity therapy recommended for serious lifethreatening infections include:- Nsjublqtgq-Fkzqaaekylgt-Mxvtobcpr (Ventilator/Healtcare Associated)-SepsisPLEASE CONTACT PHARMACY SERVICES (#6798) FOR INTERPRETATIONOF RESULTS. Performed By: #### L 501.8820 ####[facility] [address] [place], [address] Basic Metabolic Profile (BMP )on 09-16-2024 BUN/CRE 19.9 RATIO Normal 10-20 [facility] Comment on above: Performed By: #### L 100.0500, L500.2500 ####[facility] [address] [place], [address] Calcium [Mass/Vol] 8.8 mg/dL Normal 7.6-11.0 [facility] Comment on above: Performed By: #### L 100.0500, L500.2500 ####[facility] [address] [place], [address] Chloride [Moles/Vol] 96 mmol/L Low 98-108 [facility] Comment on above: Performed By: #### L 100.0500, L500.2500 ####[facility] [address] [place], [address] CO2 [Moles/Vol] 21.2 mmol/L Normal 21.0-32.0 [facility] Comment on above: Performed By: #### L 100.0500, L500.2500 ####[facility] [address] [place], [address] Creatinine [Mass/Vol] 0.71 mg/dL Normal 0.70-1.20 [facility] Comment on above: Performed By: #### L 100.0500, L500.2500 ####[facility] [address] [place], [address] ECRCL 202.79 ml/min Normal 50-250 [facility] Comment on above: Performed By: #### L 100.0500, L500.2500 ####[facility] [address] [place], [address] GAP 11 Normal 5-15 [facility] Comment on above: Performed By: #### L 100.0500, L500.2500 ####[facility] [address] [place], [address] GFR/1.73 sq M.predicted among non-blacks MDRD (S/P/Bld) [Vol rate/Area] 113 mL/min/{1.73_m2} Normal >60 [facility] Comment on above: Result Comment: mL/m in/1.73m2 CKD-EPI Creatinine Equation (2020) Performed By: #### L 100.0500, L500.2500 ####[facility] [address] [place], [address] Glucose [Mass/Vol] 227 mg/dL High 70-99 [facility] Comment on above: Performed By: #### L 100.0500, L500.2500 ####[facility] [address] [place], [address] Potassium [Moles/Vol] 3.8 mmol/L Normal 3.3-5.1 [facility] Comment on above: Performed By: #### L 100.0500, L500.2500 ####[facility] [address] [place], [address] Sodium [Moles/Vol] 129 mmol/L Low 133-145 [facility] Comment on above: Performed By: #### L 100.0500, L500.2500 ####[facility] [address] [place], [address] Urea nitrogen [Mass/Vol] 14 mg/dL Normal 4-19 [facility] Comment on above: Performed By: #### L 100.0500, L500.2500 ####[facility] [address] [place], [address] Bedside Glucoseon 09-16-2024 FINGERSTICK GLU 273 mg/dL High 74-106 [facility] Comment on above: Result Comment: RIP GEMENT OF PATIENT CARE PER NURSING PROTOCOL Performed By: #### L 501.080 ####[facility] [address] [place], [address] FINGERSTICK GLU 231 mg/dL High 74-106 [facility] Comment on above: Result Comment: RIP GEMENT OF PATIENT CARE PER NURSING PROTOCOL Performed By: #### L 501.080 ####[facility] [address] [place], [address] FINGERSTICK GLU 244 mg/dL High 74-106 [facility] Comment on above: Result Comment: RIP GEMENT OF PATIENT CARE PER NURSING PROTOCOL Performed By: #### L 501.080 ####[facility] [address] [place], [address] CBC-Complete Blood Cnt No Di ffon 09-16-2024 Erythrocyte distribution width (RBC) [Ratio] 13.9 % Normal 11.6-14.6 [facility] Comment on above: Performed By: #### L 100.0500, L500.2500 ####[facility] [address] [place], [address] Hematocrit (Bld) [Volume fraction] 37.4 % Low 40-54 [facility] Comment on above: Performed By: #### L 100.0500, L500.2500 ####[facility] [address] [place], [address] Hemoglobin (Bld) [Mass/Vol] 13.2 g/dL Normal 13.0-16.5 [facility] Comment on above: Performed By: #### L 100.0500, L500.2500 ####[facility] [address] [place], [address] MCH (RBC) [Entitic mass] 31.8 pg Normal 27.0-32.0 [facility] Comment on above: Performed By: #### L 100.0500, L500.2500 ####[facility] [address] [place], [address] MCHC (RBC) [Mass/Vol] 35.3 g/dL Normal 32-36 [facility] Comment on above: Performed By: #### L 100.0500, L500.2500 ####[facility] [address] [place], [address] MCV (RBC) [Entitic vol] 90.1 fL Normal 80-94 [facility] Comment on above: Performed By: #### L 100.0500, L500.2500 ####[facility] [address] [place], [address] Platelet mean volume (Bld) [Entitic vol] 9.5 fL Normal 6.2-12.0 [facility] Comment on above: Performed By: #### L 100.0500, L500.2500 ####[facility] [address] [place], [address] Platelets (Bld) [#/Vol] 228 10*3/uL Normal 150-450 [facility] Comment on above: Performed By: #### L 100.0500, L500.2500 ####[facility] [address] [place], [address] RBC (Bld) [#/Vol] 4.15 10*6/uL Low 4.6-6.2 [facility] Comment on above: Performed By: #### L 100.0500, L500.2500 ####[facility] [address] [place], [address] RDW SD 45.1 fl High 35.1-43.9 [facility] Comment on above: Performed By: #### L 100.0500, L500.2500 ####[facility] [address] [place], [address] WBC (Bld) [#/Vol] 11.2 10*3/uL High 4.4-11.0 [facility] Comment on above: Performed By: #### L 100.0500, L500.2500 ####[facility] [address] [place], [address] Vancomycin, Trough Levelon 0 7- VANCO, TROUGH 12.2 ug/mL Normal 5.0-15.0 [facility] Comment on above: Order Comment: Comme nts: Trough to be drawn 30 mins prior to scheduled dose Result Comment: Man mmended goal trough ranges are generally 10-15 mcg/mlfor less severe/complicated infections such as cellulitisor UTI and 15-20 mcg/ml for more severe/complicatedinfections such as bacteremia/sepsis, osteomyelitis,pneumonia or meningitis. Goal trough ranges should takeinto account indication, patient-specific factors andorganism KIMMIE.VANCOMYCIN STANDARED DRUG THERAPY TROUGH LEVEL: 5.0 - 15.0 mg/LVANCOMYCIN HIGH INTENSITY THERAPY TROUGH LEVEL: 15.0 - 20.0 mg/LHigh Intensity therapy recommended for serious lifethreatening infections include:- Abhdzwiael-Lmzchhtivzeb-Fgvngsknx (Ventilator/Healtcare Associated)-SepsisPLEASE CONTACT [employer]Y SERVICES (#[id number]) FOR INTERPRETATIONOF RESULTS. Performed By: #### L 501.1983 ####[facility] [address] [place], [address] 12 Lead EKGon 09-15-2024 12 Lead EKG Normal [facility] Alcohol, Blood (Medical)-Ser umon 09-15-2024 SERUM ETOH < 10.1 Normal <=10.0 [facility] Comment on above: Result Comment: This test is for medical purposes only. The legaldefinition of intoxication varies according to local law. Performed By: #### L 501.9100 ####[facility] [address] [place], [address] Bedside Glucoseon 09-15-2024 FINGERSTICK GLU 374 mg/dL High 74-106 [facility] Comment on above: Result Comment: RIP MACIEL OF PATIENT CARE PER NURSING PROTOCOL Performed By: #### L 501.080 ####[facility] [address] [place], [address] Beta-Hydroxbytyrateon 2024 BETA-HYDROXYBUT 0.0 mmol/L Normal 0.0-0.3 [facility] Comment on above: Performed By: #### L 501.6901 ####[facility] [address] [place], [address] CBC W/Diff, Automatedon PLT EST ADEQUATE Normal ADEQ [facility] Comment on above: Performed By: #### L 501.6710, L101.9900, L100.0100, L500.4050, L503.7505, L503.6005 ####[facility] [address] [place], [address] SMEAR COMMENT SCANNED Normal [facility] Comment on above: Performed By: #### L 501.6710, L101.9900, L100.0100, L500.4050, L503.7505, L503.6005 ####[facility] [address] [place], [address] CRPon 09-15-2024 C-REACTIVE PROT 198.00 mg/L High 0.0-3.0 [facility] Comment on above: Performed By: #### L 501.6710, L101.9900, L100.0100, L500.4050, L503.7505, L503.6005 ####[facility] [address] [place], [address] Chest 1 View (Portable)on Chest 1 View (Portable) Normal [facility] Comprehensive Metabolic Prof ilon 09-15-2024 Albumin [Mass/Vol] 3.3 g/dL Low 3.5-5.0 [facility] Comment on above: Performed By: #### L 501.6710, L101.9900, L100.0100, L500.4050, L503.7505, L503.6005 ####[facility] [address] [place], [address] Albumin/Globulin [Mass ratio] 0.8 {ratio} Low 0.9-2.4 [facility] Comment on above: Performed By: #### L 501.6710, L101.9900, L100.0100, L500.4050, L503.7505, L503.6005 ####[facility] [address] [place], [address] ALK PHOS 106 U/L Normal 40-129 [facility] Comment on above: Performed By: #### L 501.6710, L101.9900, L100.0100, L500.4050, L503.7505, L503.6005 ####[facility] [address] [place], [address] ALT [Catalytic activity/Vol] 9 U/L Normal <=46 [facility] Comment on above: Performed By: #### L 501.6710, L101.9900, L100.0100, L500.4050, L503.7505, L503.6005 ####[facility] [address] [place], [address] AST [Catalytic activity/Vol] 12 U/L Normal <=37 [facility] Comment on above: Performed By: #### L 501.6710, L101.9900, L100.0100, L500.4050, L503.7505, L503.6005 ####[facility] [address] [place], [address] Bilirubin [Mass/Vol] 0.55 mg/dL Normal 0.00-1.30 [facility] Comment on above: Performed By: #### L 501.6710, L101.9900, L100.0100, L500.4050, L503.7505, L503.6005 ####[facility] [address] [place], [address] BUN/CRE 12.4 RATIO Normal 10-20 [facility] Comment on above: Performed By: #### L 501.6710, L101.9900, L100.0100, L500.4050, L503.7505, L503.6005 ####[facility] [address] [place], [address] Calcium [Mass/Vol] 9.3 mg/dL Normal 7.6-11.0 [facility] Comment on above: Performed By: #### L 501.6710, L101.9900, L100.0100, L500.4050, L503.7505, L503.6005 ####[facility] [address] [place], [address] Chloride [Moles/Vol] 90 mmol/L Low 98-108 [facility] Comment on above: Performed By: #### L 501.6710, L101.9900, L100.0100, L500.4050, L503.7505, L503.6005 ####[facility] [address] [place], [address] CO2 [Moles/Vol] 22.5 mmol/L Normal 21.0-32.0 [facility] Comment on above: Performed By: #### L 501.6710, L101.9900, L100.0100, L500.4050, L503.7505, L503.6005 ####[facility] [address] [place], [address] Creatinine [Mass/Vol] 1.34 mg/dL High 0.70-1.20 [facility] Comment on above: Performed By: #### L 501.6710, L101.9900, L100.0100, L500.4050, L503.7505, L503.6005 ####[facility] [address] [place], [address] GAP 12 Normal 5-15 [facility] Comment on above: Performed By: #### L 501.6710, L101.9900, L100.0100, L500.4050, L503.7505, L503.6005 ####[facility] [address] [place], [address] GFR/1.73 sq M.predicted among non-blacks MDRD (S/P/Bld) [Vol rate/Area] 65 mL/min/{1.73_m2} Normal >60 [facility] Comment on above: Result Comment: mL/m in/1.73m2 CKD-EPI Creatinine Equation (2020) Performed By: #### L 501.6710, L101.9900, L100.0100, L500.4050, L503.7505, L503.6005 ####[facility] [address] [place], [address] Globulin (S) [Mass/Vol] 4.0 g/dL Normal 2.2-4.2 [facility] Comment on above: Performed By: #### L 501.6710, L101.9900, L100.0100, L500.4050, L503.7505, L503.6005 ####[facility] [address] [place], [address] Glucose [Mass/Vol] 501 mg/dL Invalid Interpretation Code 70-99 [facility] Comment on above: Result Comment: Crit ical Result(s) Called at: 09/15/2024-15:29 by: Sonu to Julian Aguayo.??Results read back by same. Performed By: #### L 501.6710, L101.9900, L100.0100, L500.4050, L503.7505, L503.6005 ####[facility] [address] [place], [address] Potassium [Moles/Vol] 4.1 mmol/L Normal 3.3-5.1 [facility] Comment on above: Performed By: #### L 501.6710, L101.9900, L100.0100, L500.4050, L503.7505, L503.6005 ####[facility] [address] [place], [address] Sodium [Moles/Vol] 125 mmol/L Low 133-145 [facility] Comment on above: Performed By: #### L 501.6710, L101.9900, L100.0100, L500.4050, L503.7505, L503.6005 ####[facility] [address] [place], [address] T PROT 7.3 g/dL Normal 5.9-8.4 [facility] Comment on above: Performed By: #### L 501.6710, L101.9900, L100.0100, L500.4050, L503.7505, L503.6005 ####[facility] [address] [place], [address] Urea nitrogen [Mass/Vol] 17 mg/dL Normal 4-19 [facility] Comment on above: Performed By: #### L 501.6710, L101.9900, L100.0100, L500.4050, L503.7505, L503.6005 ####[facility] [address] [place], [address] Echo Complete W/ Contraston 09-15-2024 Echo Complete W/ Contrast Normal [facility] Emergency Department Summary on 09-15-2024 Emergency Department Summary Normal [facility] Erythrocyte Sed Rateon 09-15 SED RATE 18 mm/hr Normal 0-20 [facility] Comment on above: Performed By: #### L 501.6710, L101.9900, L100.0100, L500.4050, L503.7505, L503.6005 ####[facility] [address] [place], [address] Foot min 3 Viewson 5 Foot min 3 Views Normal [facility] H AND P Exam - Hospitaliston 09-15-2024 H&P Exam - Hospitalist Normal [facility] Hemoglobin A1con 09-15-2024 HbA1c (Bld) [Mass fraction] 10.6 % High <=5.6 [facility] Comment on above: Result Comment: Norm al < 5.7 % Prediabetic 5.7 - 6.4 % Diabetic >or= 6.5 % Please note range changes. Performed By: #### L 501.9985 ####[facility] [address] [place], [address] L499.0042on 09-15-2024 Trop T High Sen 34 ng/L High <=22 [facility] Comment on above: Performed By: #### L 499.0042 ####[facility] [address] [place], [address] L499.0043on 09-15-2024 Trop T High Sen 34 ng/L High <=22 [facility] Comment on above: Order Comment: PUSHE D BACK TIME DUR TO ER COLLECTING 2HR-TROPT LATE Performed By: #### L 499.0043 ####[facility] [address] [place], [address] L501.4021on 09-15-2024 Trop T High Sen 42 ng/L High <=22 [facility] Comment on above: Performed By: #### L 501.4021 ####[facility] [address] [place], [address] L503.7505on 09-15-2024 Natriuretic peptide B (Bld) [Mass/Vol] 2086 pg/mL High <=450 [facility] Comment on above: Result Comment: Hear t Failure Unlikely: < 300 pg/mLHeart Failure Likely< 50 Years: > 450 pg/mL50-75 Years: > 900 pg/mL>75 Years: > 1800 pg/mL Performed By: #### L 501.6710, L101.9900, L100.0100, L500.4050, L503.7505, L503.6005 ####[facility] [address] [place], [address] Lactic Acidon 09-15-2024 Lactate [Moles/Vol] 1.8 mmol/L Normal 0.0-2.0 [facility] Comment on above: Order Comment: Y Performed By: #### L 501.6710, L101.9900, L100.0100, L500.4050, L503.7505, L503.6005 ####[facility] [address] [place], [address] Partial Thromboplast Timeon 09-15-2024 aPTT Coag (Bld) [Time] 32.5 s Normal 24.1-36.2 [facility] Comment on above: Performed By: #### L 300.4310, L300.3900 ####[facility] [address] [place], [address] Prothrombin Time w/INRon INR Coag (PPP) [Relative time] 1.1 {INR} Normal [facility] Comment on above: Performed By: #### L 300.4310, L300.3900 ####[facility] [address] [place], [address] PT Coag (PPP) [Time] 14.0 s Normal 11.7-14.9 [facility] Comment on above: Performed By: #### L 300.4310, L300.3900 ####[facility] [address] [place], [address] Venous Blood Gason 5 Blood Gas Type CLARITZA [facility] Comment on above: Performed By: #### L 9000.0810 ####[facility] [address] [place], [address] CO2 [Moles/Vol] 30 mmol/L Normal 23-33 [facility] Comment on above: Performed By: #### L 9000.0810 ####[facility] [address] [place], [address] HCO3 (Bld) [Moles/Vol] 29 mmol/L High 22-26 [facility] Comment on above: Performed By: #### L 9000.0810 ####[facility] [address] [place], [address] O2 Delivery Dev Not entered [facility] Comment on above: Performed By: #### L 9000.0810 ####[facility] [address] [place], [address] SITE Not entered [facility] Comment on above: Performed By: #### L 9000.0810 ####[facility] [address] [place], [address] VBG BE 3 mmol/L Normal -1.0-3.5 [facility] Comment on above: Performed By: #### L 9000.0810 ####[facility] [address] [place], [address] VBG pCO2 53.7 mmHg High 41-51 [facility] Comment on above: Performed By: #### L 9000.0810 ####[facility] [address] [place], [address] VBG pH 7.34 Normal 7.32-7.42 [facility] Comment on above: Performed By: #### L 9000.0810 ####[facility] [address] [place], [address] VBG PO2 21 mmHg Low 25-40 [facility] Comment on above: Performed By: #### L 9000.0810 ####[facility] [address] [place], [address] VBG SO2 31 Low 50-70 [facility] Comment on above: Performed By: #### L 9000.0810 ####[facility] [address] [place], [address] Venous Duplex US, Unilateral on 09-15-2024 Venous Duplex US, Unilateral Normal [facility] Emergency Department Summary on 09-06-2024 Emergency Department Summary Normal [facility] Bedside Glucoseon 08-05-2024 FINGERSTICK GLU 241 mg/dL High 74-106 [facility] Comment on above: Result Comment: RIP GEMENT OF PATIENT CARE PER NURSING PROTOCOL Performed By: #### L 501.080 ####[facility] [address] [place], [address] FINGERSTICK GLU 297 mg/dL High 74-106 [facility] Comment on above: Result Comment: RIP GEMENT OF PATIENT CARE PER NURSING PROTOCOL Performed By: #### L 501.080 ####[facility] [address] [place], [address] FINGERSTICK GLU 308 mg/dL High 74-106 [facility] Comment on above: Result Comment: RIP GEMENT OF PATIENT CARE PER NURSING PROTOCOL Performed By: #### L 501.080 ####[facility] [address] [place], [address] Alcohol, Blood (Medical)-Ser umon 08-04-2024 SERUM ETOH 38.0 mg/dL High <=10.0 [facility] Comment on above: Result Comment: This test is for medical purposes only. The legaldefinition of intoxication varies according to local law. Performed By: #### L 501.9100 ####[facility] [address] [place], [address] Bedside Glucoseon 08-04-2024 FINGERSTICK GLU 291 mg/dL High [address] [place] [address] Comment on above: Result Comment: RIP GEMENT OF PATIENT CARE PER NURSING PROTOCOL Performed By: #### L 501.080 ####[facility] [address] [place], [address] FINGERSTICK GLU 299 mg/dL High [address] [place] [address] Comment on above: Result Comment: RIP GEMENT OF PATIENT CARE PER NURSING PROTOCOL Performed By: #### L 501.080 ####[facility] [address] [place], [address] FINGERSTICK GLU 298 mg/dL High [address] [place] [address] Comment on above: Result Comment: RIP GEMENT OF PATIENT CARE PER NURSING PROTOCOL Performed By: #### L 501.080 ####[facility] [address] [place], [address] FINGERSTICK GLU 263 mg/dL High [address] [place] [address] Comment on above: Result Comment: RIP GEMENT OF PATIENT CARE PER NURSING PROTOCOL Performed By: #### L 501.080 ####[facility] [address] [place], [address] CBC W/Diff, Automatedon 05-2 Absolute Lymph 2.83 X10 3/uL Normal 0.83-4.51 [facility] Comment on above: Performed By: #### L 100.0100, L500.4100, L300.3900, L500.4050, L501.2300 ####[facility] [address] [place], [address] Absolute Neut 2.7 X10 3/uL Normal 2.0-7.7 [facility] Comment on above: Performed By: #### L 100.0100, L500.4100, L300.3900, L500.4050, L501.2300 ####[facility] [address] [place], [address] Basophils/100 WBC (Bld) 0.6 % Normal 0-1 [facility] Comment on above: Performed By: #### L 100.0100, L500.4100, L300.3900, L500.4050, L501.2300 ####[facility] [address] [place], [address] Eosinophils/100 WBC (Bld) 3.1 % Normal 0-5 [facility] Comment on above: Performed By: #### L 100.0100, L500.4100, L300.3900, L500.4050, L501.2300 ####[facility] [address] [place], [address] Erythrocyte distribution width (RBC) [Ratio] 14.3 % Normal 11.6-14.6 [facility] Comment on above: Performed By: #### L 100.0100, L500.4100, L300.3900, L500.4050, L501.2300 ####[facility] [address] [place], [address] Hematocrit (Bld) [Volume fraction] 43.9 % Normal 40-54 [facility] Comment on above: Performed By: #### L 100.0100, L500.4100, L300.3900, L500.4050, L501.2300 ####[facility] [address] [place], [address] Hemoglobin (Bld) [Mass/Vol] 15.0 g/dL Normal 13.0-16.5 [facility] Comment on above: Performed By: #### L 100.0100, L500.4100, L300.3900, L500.4050, L501.2300 ####[facility] [address] [place], [address] IG% 0.500 Normal 0.0-0.9 [facility] Comment on above: Result Comment: IG% - Immature Granulocytes (promyelocytes, myelocytes andmetamyelocytes) > 1% indicates that a LEFT SHIFT is Present. Performed By: #### L 100.0100, L500.4100, L300.3900, L500.4050, L501.2300 ####[facility] [address] [place], [address] Lymphocytes/100 WBC (Bld) 44.4 % High 19-41 [facility] Comment on above: Performed By: #### L 100.0100, L500.4100, L300.3900, L500.4050, L501.2300 ####[facility] [address] [place], [address] MCH (RBC) [Entitic mass] 31.1 pg Normal 27.0-32.0 [facility] Comment on above: Performed By: #### L 100.0100, L500.4100, L300.3900, L500.4050, L501.2300 ####[facility] [address] [place], [address] MCHC (RBC) [Mass/Vol] 34.2 g/dL Normal 32-36 [facility] Comment on above: Performed By: #### L 100.0100, L500.4100, L300.3900, L500.4050, L501.2300 ####[facility] [address] [place], [address] MCV (RBC) [Entitic vol] 90.9 fL Normal 80-94 [facility] Comment on above: Performed By: #### L 100.0100, L500.4100, L300.3900, L500.4050, L501.2300 ####[facility] [address] [place], [address] Monocytes/100 WBC (Bld) 8.6 % Normal 0-10 [facility] Comment on above: Performed By: #### L 100.0100, L500.4100, L300.3900, L500.4050, L501.2300 ####[facility] [address] [place], [address] Neutrophils/100 WBC (Bld) 42.8 % Low 47-70 [facility] Comment on above: Performed By: #### L 100.0100, L500.4100, L300.3900, L500.4050, L501.2300 ####[facility] [address] [place], [address] Nucleated RBC (Bld) [#/Vol] 0 10*3/uL Normal 0-5 [facility] Comment on above: Performed By: #### L 100.0100, L500.4100, L300.3900, L500.4050, L501.2300 ####[facility] [address] [place], [address] Platelet mean volume (Bld) [Entitic vol] 9.5 fL Normal 6.2-12.0 [facility] Comment on above: Performed By: #### L 100.0100, L500.4100, L300.3900, L500.4050, L501.2300 ####[facility] [address] [place], [address] Platelets (Bld) [#/Vol] 232 10*3/uL Normal 150-450 [facility] Comment on above: Performed By: #### L 100.0100, L500.4100, L300.3900, L500.4050, L501.2300 ####[facility] [address] [place], [address] RBC (Bld) [#/Vol] 4.83 10*6/uL Normal 4.6-6.2 [facility] Comment on above: Performed By: #### L 100.0100, L500.4100, L300.3900, L500.4050, L501.2300 ####[facility] [address] [place], [address] RDW SD 47.0 fl High 35.1-43.9 [facility] Comment on above: Performed By: #### L 100.0100, L500.4100, L300.3900, L500.4050, L501.2300 ####[facility] [address] [place], [address] WBC (Bld) [#/Vol] 6.4 10*3/uL Normal 4.4-11.0 [facility] Comment on above: Performed By: #### L 100.0100, L500.4100, L300.3900, L500.4050, L501.2300 ####[facility] [address] [place], [address] Comprehensive Metabolic Prof [facility] 08-04-2024 Albumin [Mass/Vol] 3.5 g/dL Normal 3.5-5.0 [facility] Comment on above: Performed By: #### L 100.0100, L500.4100, L300.3900, L500.4050, L501.2300 ####[facility] [address] [place], [address] Albumin/Globulin [Mass ratio] 0.9 {ratio} Normal 0.9-2.4 [facility] Comment on above: Performed By: #### L 100.0100, L500.4100, L300.3900, L500.4050, L501.2300 ####[facility] [address] [place], [address] ALK PHOS 104 U/L Normal 40-129 [facility] Comment on above: Performed By: #### L 100.0100, L500.4100, L300.3900, L500.4050, L501.2300 ####[facility] [address] [place], [address] ALT [Catalytic activity/Vol] 40 U/L Normal <=46 [facility] Comment on above: Performed By: #### L 100.0100, L500.4100, L300.3900, L500.4050, L501.2300 ####[facility] [address] [place], [address] AST [Catalytic activity/Vol] 42 U/L High <=37 [facility] Comment on above: Performed By: #### L 100.0100, L500.4100, L300.3900, L500.4050, L501.2300 ####[facility] [address] [place], [address] Bilirubin [Mass/Vol] 0.25 mg/dL Normal 0.00-1.30 [facility] Comment on above: Performed By: #### L 100.0100, L500.4100, L300.3900, L500.4050, L501.2300 ####[facility] [address] [place], [address] BUN/CRE 10.1 RATIO Normal 10-20 [facility] Comment on above: Performed By: #### L 100.0100, L500.4100, L300.3900, L500.4050, L501.2300 ####[facility] [address] [place], [address] Calcium [Mass/Vol] 9.0 mg/dL Normal 7.6-11.0 [facility] Comment on above: Performed By: #### L 100.0100, L500.4100, L300.3900, L500.4050, L501.2300 ####[facility] [address] [place], [address] Chloride [Moles/Vol] 103 mmol/L Normal 98-108 [facility] Comment on above: Performed By: #### L 100.0100, L500.4100, L300.3900, L500.4050, L501.2300 ####[facility] [address] [place], [address] CO2 [Moles/Vol] 18.7 mmol/L Low 21.0-32.0 [facility] Comment on above: Performed By: #### L 100.0100, L500.4100, L300.3900, L500.4050, L501.2300 ####[facility] [address] [place], [address] Creatinine [Mass/Vol] 0.74 mg/dL Normal 0.70-1.20 [facility] Comment on above: Performed By: #### L 100.0100, L500.4100, L300.3900, L500.4050, L501.2300 ####[facility] [address] [place], [address] ECRCL 179.71 ml/min Normal 50-250 [facility] Comment on above: Performed By: #### L 100.0100, L500.4100, L300.3900, L500.4050, L501.2300 ####[facility] [address] [place], [address] GAP 18 High 5-15 [facility] Comment on above: Performed By: #### L 100.0100, L500.4100, L300.3900, L500.4050, L501.2300 ####[facility] [address] [place], [address] GFR/1.73 sq M.predicted among non-blacks MDRD (S/P/Bld) [Vol rate/Area] 111 mL/min/{1.73_m2} Normal >60 [facility] Comment on above: Result Comment: mL/m in/1.73m2 CKD-EPI Creatinine Equation (2020) Performed By: #### L 100.0100, L500.4100, L300.3900, L500.4050, L501.2300 ####[facility] [address] [place], [address] Globulin (S) [Mass/Vol] 3.7 g/dL Normal 2.2-4.2 [facility] Comment on above: Performed By: #### L 100.0100, L500.4100, L300.3900, L500.4050, L501.2300 ####[facility] [address] [place], [address] Glucose [Mass/Vol] 252 mg/dL High 70-99 [facility] Comment on above: Performed By: #### L 100.0100, L500.4100, L300.3900, L500.4050, L501.2300 ####[facility] [address] [place], [address] Potassium [Moles/Vol] 3.6 mmol/L Normal 3.3-5.1 [facility] Comment on above: Performed By: #### L 100.0100, L500.4100, L300.3900, L500.4050, L501.2300 ####[facility] [address] [place], [address] Sodium [Moles/Vol] 139 mmol/L Normal 133-145 [facility] Comment on above: Performed By: #### L 100.0100, L500.4100, L300.3900, L500.4050, L501.2300 ####[facility] [address] [place], [address] T PROT 7.1 g/dL Normal 5.9-8.4 [facility] Comment on above: Performed By: #### L 100.0100, L500.4100, L300.3900, L500.4050, L501.2300 ####[facility] [address] [place], [address] Urea nitrogen [Mass/Vol] 8 mg/dL Normal 4-19 [facility] Comment on above: Performed By: #### L 100.0100, L500.4100, L300.3900, L500.4050, L501.2300 ####[facility] [address] [place], [address] H AND P Exam - [facility] 08-04-2024 H&P Exam - Hospitalist Normal [facility] Hemoglobin A1con 08-04-2024 HbA1c (Bld) [Mass fraction] 10.9 % High <=5.6 [facility] Comment on above: Order Comment: NURSE DIANA SAID IT IS OKAY TO DO WITH MORNING LABWORK Result Comment: Norm al < 5.7 % Prediabetic 5.7 - 6.4 % Diabetic >or= 6.5 % Please note range changes. Performed By: #### L 501.9985, L501.9520 ####[facility] [address] [place], [address] Lipid Profileon 08-04-2024 CHOL:HDL 4.88 Normal [facility] Comment on above: Performed By: #### L 100.0100, L500.4100, L300.3900, L500.4050, L501.2300 ####[facility] [address] [place], [address] Cholesterol [Mass/Vol] 124 mg/dL Normal <=200 [facility] Comment on above: Result Comment: Chol esterol level, Desirable <200 mg/dLBorderline high cholesterol 200-239 mg/dLHigh cholesterol >=240 mg/dLRecommendations of the NCEP Adult Treatment Panel for thefollowing risk-cutoff thresholds for the [place] Americanpulation. Performed By: #### L 100.0100, L500.4100, L300.3900, L500.4050, L501.2300 ####[facility] [address] [place], [address] Cholesterol in HDL [Mass/Vol] 25 mg/dL Low [facility] Comment on above: Result Comment: [place] onal Cholesterol Education Program (NCEP) guidelines:<40 mg/dL: Low HDL-cholesterol (major risk factor for CHD)>= 60 mg/dL: High HDL-cholesterol (negative risk factor forCHD)HDL-cholesterol is affected by a number of factors, e.g.smoking, exercise, hormones, sex and age. Performed By: #### L 100.0100, L500.4100, L300.3900, L500.4050, L501.2300 ####[facility] [address] [place], [address] Cholesterol in LDL [Mass/Vol] 60 mg/dL Normal [facility] Comment on above: Result Comment: Bord dkqjew=946-031 mg/dL Higher Xfdb=391 mg/dL or greater Performed By: #### L 100.0100, L500.4100, L300.3900, L500.4050, L501.2300 ####[facility] [address] [place], [address] Cholesterol in VLDL [Mass/Vol] 38 mg/dL Normal 5-40 [facility] Comment on above: Performed By: #### L 100.0100, L500.4100, L300.3900, L500.4050, L501.2300 ####[facility] [address] [place], [address] Triglyceride [Mass/Vol] 192 mg/dL Normal [facility] Comment on above: Result Comment: The drugs N-Acetylcysteine and Metamizole may falselydepress this assay.Normal range: <150 mg/dLBorderline High: 150-199 mg/dLHigh: 200-499 mg/dLVery High: >500 mg/dL Performed By: #### L 100.0100, L500.4100, L300.3900, L500.4050, L501.2300 ####[facility] [address] [place], [address] Magnesiumon 08-04-2024 Magnesium [Mass/Vol] 2.2 mg/dL Normal 1.5-2.2 [facility] Comment on above: Performed By: #### L 501.5200 ####[facility] [address] [place], [address] Phosphoruson 08-04-2024 Phosphate [Mass/Vol] 3.8 mg/dL Normal 2.7-4.5 [facility] Comment on above: Performed By: #### L 100.0100, L500.4100, L300.3900, L500.4050, L501.2300 ####[facility] [address] [place], [address] Prothrombin Time w/INRon 5 INR Coag (PPP) [Relative time] 1.0 {INR} Normal [facility] Comment on above: Performed By: #### L 100.0100, L500.4100, L300.3900, L500.4050, L501.2300 ####[facility] [address] [place], [address] PT Coag (PPP) [Time] 13.2 s Normal 11.7-14.9 [facility] Comment on above: Performed By: #### L 100.0100, L500.4100, L300.3900, L500.4050, L501.2300 ####[facility] [address] [place], [address] Thyroid Stim Hormone (TSH)on 08-04-2024 TSH 0.838 uIU/mL Normal 0.300-4.200 [facility] Comment on above: Order Comment: NURSE LEBRON SAID IT IS OKAY TO DO WITH MORNING LABWORK Performed By: #### L 501.9985, L501.9520 ####[facility] [address] [place], [address] Alcohol, Blood (Medical)-Ser umon 08-03-2024 SERUM ETOH 225.0 mg/dL High <=10.0 [facility] Comment on above: Result Comment: This test is for medical purposes only. The legaldefinition of intoxication varies according to local law. Performed By: #### L 100.0100, L505.5000, L500.4050, L501.9100 ####[facility] [address] [place], [address] CBC W/Diff, Automatedon 07-16 Absolute Lymph 3.02 X10 3/uL Normal 0.83-4.51 [facility] Comment on above: Performed By: #### L 100.0100, L505.5000, L500.4050, L501.9100 ####[facility] [address] [place], [address] Absolute Neut 5.0 X10 3/uL Normal 2.0-7.7 [facility] Comment on above: Performed By: #### L 100.0100, L505.5000, L500.4050, L501.9100 ####[facility] [address] [place], [address] Basophils/100 WBC (Bld) 0.7 % Normal 0-1 [facility] Comment on above: Performed By: #### L 100.0100, L505.5000, L500.4050, L501.9100 ####[facility] [address] [place], [address] Eosinophils/100 WBC (Bld) 2.1 % Normal 0-5 [facility] Comment on above: Performed By: #### L 100.0100, L505.5000, L500.4050, L501.9100 ####[facility] [address] [place], [address] Erythrocyte distribution width (RBC) [Ratio] 14.2 % Normal 11.6-14.6 [facility] Comment on above: Performed By: #### L 100.0100, L505.5000, L500.4050, L501.9100 ####[facility] [address] [place], [address] Hematocrit (Bld) [Volume fraction] 47.1 % Normal 40-54 [facility] Comment on above: Performed By: #### L 100.0100, L505.5000, L500.4050, L501.9100 ####[facility] [address] [place], [address] Hemoglobin (Bld) [Mass/Vol] 16.4 g/dL Normal 13.0-16.5 [facility] Comment on above: Performed By: #### L 100.0100, L505.5000, L500.4050, L501.9100 ####[facility] [address] [place], [address] IG% 0.300 Normal 0.0-0.9 [facility] Comment on above: Result Comment: IG% - Immature Granulocytes (promyelocytes, myelocytes andmetamyelocytes) > 1% indicates that a LEFT SHIFT is Present. Performed By: #### L 100.0100, L505.5000, L500.4050, L501.9100 ####[facility] [address] [place], [address] Lymphocytes/100 WBC (Bld) 33.4 % Normal 19-41 [facility] Comment on above: Performed By: #### L 100.0100, L505.5000, L500.4050, L501.9100 ####[facility] [address] [place], [address] MCH (RBC) [Entitic mass] 31.2 pg Normal 27.0-32.0 [facility] Comment on above: Performed By: #### L 100.0100, L505.5000, L500.4050, L501.9100 ####[facility] [address] [place], [address] MCHC (RBC) [Mass/Vol] 34.8 g/dL Normal 32-36 [facility] Comment on above: Performed By: #### L 100.0100, L505.5000, L500.4050, L501.9100 ####[facility] [address] [place], [address] MCV (RBC) [Entitic vol] 89.5 fL Normal 80-94 [facility] Comment on above: Performed By: #### L 100.0100, L505.5000, L500.4050, L501.9100 ####[facility] [address] [place], [address] Monocytes/100 WBC (Bld) 8.6 % Normal 0-10 [facility] Comment on above: Performed By: #### L 100.0100, L505.5000, L500.4050, L501.9100 ####[facility] [address] [place], [address] Neutrophils/100 WBC (Bld) 54.9 % Normal 47-70 [facility] Comment on above: Performed By: #### L 100.0100, L505.5000, L500.4050, L501.9100 ####[facility] [address] [place], [address] Nucleated RBC (Bld) [#/Vol] 0 10*3/uL Normal 0-5 [facility] Comment on above: Performed By: #### L 100.0100, L505.5000, L500.4050, L501.9100 ####[facility] [address] [place], [address] Platelet mean volume (Bld) [Entitic vol] 9.1 fL Normal 6.2-12.0 [facility] Comment on above: Performed By: #### L 100.0100, L505.5000, L500.4050, L501.9100 ####[facility] [address] [place], [address] Platelets (Bld) [#/Vol] 254 10*3/uL Normal 150-450 [facility] Comment on above: Performed By: #### L 100.0100, L505.5000, L500.4050, L501.9100 ####[facility] [address] [place], [address] RBC (Bld) [#/Vol] 5.26 10*6/uL Normal 4.6-6.2 [facility] Comment on above: Performed By: #### L 100.0100, L505.5000, L500.4050, L501.9100 ####[facility] [address] [place], [address] RDW SD 46.0 fl High 35.1-43.9 [facility] Comment on above: Performed By: #### L 100.0100, L505.5000, L500.4050, L501.9100 ####[facility] [address] [place], [address] WBC (Bld) [#/Vol] 9.1 10*3/uL Normal 4.4-11.0 [facility] Comment on above: Performed By: #### L 100.0100, L505.5000, L500.4050, L501.9100 ####[facility] [address] [place], [address] Comprehensive Metabolic Prof ilon 08-03-2024 Albumin [Mass/Vol] 4.0 g/dL Normal 3.5-5.0 [facility] Comment on above: Performed By: #### L 100.0100, L505.5000, L500.4050, L501.9100 ####[facility] [address] [place], [address] Albumin/Globulin [Mass ratio] 1.0 {ratio} Normal 0.9-2.4 [facility] Comment on above: Performed By: #### L 100.0100, L505.5000, L500.4050, L501.9100 ####[facility] [address] [place], [address] ALK PHOS 124 U/L Normal 40-129 [facility] Comment on above: Performed By: #### L 100.0100, L505.5000, L500.4050, L501.9100 ####[facility] [address] [place], [address] ALT [Catalytic activity/Vol] 23 U/L Normal <=46 [facility] Comment on above: Performed By: #### L 100.0100, L505.5000, L500.4050, L501.9100 ####[facility] [address] [place], [address] AST [Catalytic activity/Vol] 21 U/L Normal <=37 [facility] Comment on above: Performed By: #### L 100.0100, L505.5000, L500.4050, L501.9100 ####[facility] [address] [place], [address] Bilirubin [Mass/Vol] 0.29 mg/dL Normal 0.00-1.30 [facility] Comment on above: Performed By: #### L 100.0100, L505.5000, L500.4050, L501.9100 ####[facility] [address] [place], [address] BUN/CRE 11.9 RATIO Normal 10-20 [facility] Comment on above: Performed By: #### L 100.0100, L505.5000, L500.4050, L501.9100 ####[facility] [address] [place], [address] Calcium [Mass/Vol] 9.5 mg/dL Normal 7.6-11.0 [facility] Comment on above: Performed By: #### L 100.0100, L505.5000, L500.4050, L501.9100 ####[facility] [address] [place], [address] Chloride [Moles/Vol] 99 mmol/L Normal 98-108 [facility] Comment on above: Performed By: #### L 100.0100, L505.5000, L500.4050, L501.9100 ####[facility] [address] [place], [address] CO2 [Moles/Vol] 20.4 mmol/L Low 21.0-32.0 [facility] Comment on above: Performed By: #### L 100.0100, L505.5000, L500.4050, L501.9100 ####[facility] [address] [place], [address] Creatinine [Mass/Vol] 0.79 mg/dL Normal 0.70-1.20 [facility] Comment on above: Performed By: #### L 100.0100, L505.5000, L500.4050, L501.9100 ####[facility] [address] [place], [address] ECRCL 170.07 ml/min Normal 50-250 [facility] Comment on above: Performed By: #### L 100.0100, L505.5000, L500.4050, L501.9100 ####[facility] [address] [place], [address] GAP 16 High 5-15 [facility] Comment on above: Performed By: #### L 100.0100, L505.5000, L500.4050, L501.9100 ####[facility] [address] [place], [address] GFR/1.73 sq M.predicted among non-blacks MDRD (S/P/Bld) [Vol rate/Area] 109 mL/min/{1.73_m2} Normal >60 [facility] Comment on above: Result Comment: mL/m in/1.73m2 CKD-EPI Creatinine Equation (2020) Performed By: #### L 100.0100, L505.5000, L500.4050, L501.9100 ####[facility] [address] [place], [address] Globulin (S) [Mass/Vol] 4.2 g/dL Normal 2.2-4.2 [facility] Comment on above: Performed By: #### L 100.0100, L505.5000, L500.4050, L501.9100 ####[facility] [address] [place], [address] Glucose [Mass/Vol] 269 mg/dL High 70-99 [facility] Comment on above: Performed By: #### L 100.0100, L505.5000, L500.4050, L501.9100 ####[facility] [address] [place], [address] Potassium [Moles/Vol] 3.8 mmol/L Normal 3.3-5.1 [facility] Comment on above: Performed By: #### L 100.0100, L505.5000, L500.4050, L501.9100 ####[facility] [address] [place], [address] Sodium [Moles/Vol] 135 mmol/L Normal 133-145 [facility] Comment on above: Performed By: #### L 100.0100, L505.5000, L500.4050, L501.9100 ####[facility] [address] [place], [address] T PROT 8.2 g/dL Normal 5.9-8.4 [facility] Comment on above: Performed By: #### L 100.0100, L505.5000, L500.4050, L501.9100 ####[facility] [address] [place], [address] Urea nitrogen [Mass/Vol] 9 mg/dL Normal 4-19 [facility] Comment on above: Performed By: #### L 100.0100, L505.5000, L500.4050, L501.9100 ####[facility] [address] [place], [address] Emergency Department Summary on 08-03-2024 Emergency Department Summary Normal [facility] Urine Drug Screen (VISTA)on 08-03-2024 AMPHETAMINES Negative Normal <1000 ng/mL [facility] Comment on above: Performed By: #### L 100.0100, L505.5000, L500.4050, L501.9100 ####[facility] [address] [place], [address] BARBITIURATES Negative Normal < 200 ng/mL [facility] Comment on above: Performed By: #### L 100.0100, L505.5000, L500.4050, L501.9100 ####[facility] [address] [facility] [address] BENZODIAZIPINE Negative Normal < 200 ng/mL [facility] Comment on above: Performed By: #### L 100.0100, L505.5000, L500.4050, L501.9100 ####[facility] [address] [facility] [address] BUP Ur Drug Scr Negative Normal < 200 ng/mL [facility] Comment on above: Performed By: #### L 100.0100, L505.5000, L500.4050, L501.9100 ####[facility] [address] [place] [address] COCAINE Negative Normal < 300 ng/mL [facility] Comment on above: Performed By: #### L 100.0100, L505.5000, L500.4050, L501.9100 ####[facility] [address] [place], [place], [phone] Fentanyl Negative Normal [facility] Comment on above: Performed By: #### L 100.0100, L505.5000, L500.4050, L501.9100 ####[facility] [address] [place] [address] METHADONE Negative Normal < 300 ng/mL [facility] Comment on above: Performed By: #### L 100.0100, L505.5000, L500.4050, L501.9100 ####[facility] [address] [facility] [address] OPIATES Negative Normal < 300 ng/mL [facility] Comment on above: Performed By: #### L 100.0100, L505.5000, L500.4050, L501.9100 ####[facility] [address] [place], [address] OXYCODONE Negative Normal < 100 ng/mL [facility] Comment on above: Performed By: #### L 100.0100, L505.5000, L500.4050, L501.9100 ####[facility] [address] [place], [address] PCP Negative Normal < 25 ng/mL [facility] Comment on above: Performed By: #### L 100.0100, L505.5000, L500.4050, L501.9100 ####[facility] [address] [place], [address] THC Positive Normal < 50 ng/mL [facility] Comment on above: Result Comment: If c onfirmation testing is needed, a separate order will berequired to send out testing to the reference laboratory. Performed By: #### L 100.0100, L505.5000, L500.4050, L501.9100 ####[facility] [address] [place], [address] BASIC METABOLIC PANELon 03-17 Anion gap [Moles/Vol] 17 mmol/L Normal 10-20 [facility] Comment on above: Order Comment: [facility] has implemented the eGFR calculation approach that does not have a coefficient for race that conforms to the NKF-ASN Task Force Recommendations. Performed By: #### 4 6124 #### [facility] [address] [place] [address] Funmi Barlow M.D. [id number] Calcium [Mass/Vol] 9.5 mg/dL Normal 8.4-10.2 [facility] Comment on above: Order Comment: [facility] has implemented the eGFR calculation approach that does not have a coefficient for race that conforms to the NKF-ASN Task Force Recommendations. Performed By: #### 4 6124 #### [facility] [address] [place] [address] Funmi Barlow M.D. [id number] Chloride [Moles/Vol] 98 mmol/L Normal 98-108 [facility] Comment on above: Order Comment: [facility] has implemented the eGFR calculation approach that does not have a coefficient for race that conforms to the NKF-ASN Task Force Recommendations. Performed By: #### 4 6124 #### [facility] [address] [place] [address] Funmi Barlow M.D. [id number] Creatinine [Mass/Vol] 0.88 mg/dL Normal 0.50-1.30 [facility] Comment on above: Order Comment: [facility] has implemented the eGFR calculation approach that does not have a coefficient for race that conforms to the NKF-ASN Task Force Recommendations. Performed By: #### 4 6124 #### [address] [address] Funmi Barlow M.D. [id number] EGFR 105 mL/min/1.73 m2 Normal >=60 [facility] Comment on above: Order Comment: [facility] has implemented the eGFR calculation approach that does not have a coefficient for race that conforms to the NKF-ASN Task Force Recommendations. Result Comment: Sana mated GFR was calculated using the 2020 CKD-EPI creatinine equation. Performed By: #### 4 6124 #### [facility] [address] Funmi Barlow M.D. [id number] Glucose [Mass/Vol] 239 mg/dL High 65-99 [facility] Comment on above: Order Comment: [facility] has implemented the eGFR calculation approach that does not have a coefficient for race that conforms to the NKF-ASN Task Force Recommendations. Performed By: #### 4 6124 #### [facility] [address] Funmi Barlow M.D. [id number] HCO3 (Bld) [Moles/Vol] 25 mmol/L Normal 21-32 [facility] Comment on above: Order Comment: [facility] has implemented the eGFR calculation approach that does not have a coefficient for race that conforms to the NKF-ASN Task Force Recommendations. Performed By: #### 4 6187 #### [facility] [address] [place] [address] Funmi Barlow M.D. [id number] Potassium [Moles/Vol] 4.9 mmol/L Normal 3.5-5.1 [facility] Comment on above: Order Comment: [facility] has implemented the eGFR calculation approach that does not have a coefficient for race that conforms to the NKF-ASN Task Force Recommendations. Performed By: #### 4 6124 #### [facility] [address] [place] [address] Funmi Barlow M.D. [id number] Sodium [Moles/Vol] 135 mmol/L Normal 135-145 [facility] Comment on above: Order Comment: [facility] has implemented the eGFR calculation approach that does not have a coefficient for race that conforms to the NKF-ASN Task Force Recommendations. Performed By: #### 4 6124 #### [facility] [address] Funmi Barlow M.D. [id number] Urea nitrogen [Mass/Vol] 25 mg/dL Normal 8-25 [facility] Comment on above: Order Comment: [facility] has implemented the eGFR calculation approach that does not have a coefficient for race that conforms to the NKF-ASN Task Force Recommendations. Performed By: #### 4 6124 #### [facility] [address] Funmi Barlow M.D. [id number] Urea nitrogen/Creatinine [Mass ratio] 28.4 mg/mg High 10.0-20.0 [facility] Comment on above: Order Comment: [facility] has implemented the eGFR calculation approach that does not have a coefficient for race that conforms to the NKF-ASN Task Force Recommendations. Performed By: #### 4 6124 #### [facility] [address] [place] [address] Funmi Barlow M.D. [id number] CBC WITH AUTO DIFFERENTIALon 04-01-2024 AUTO NRBC 0.0 % Normal [facility] Comment on above: Performed By: #### L [id number] #### [facility] [address] [place] [address] Funmi Barlow M.D. [id number] AUTO NRBC ABS COUNT 0.00 K/mcL Normal 0.00-0.00 [facility] Comment on above: Performed By: #### L [id number] #### [facility] [address] [place] [address] Funmi Barlow M.D. [id number] BASOPHILS ABSOLUTE COUNT 0.05 K/mcL Normal 0.00-0.30 [facility] Comment on above: Performed By: #### L [id number] #### [facility] [address] [place] [address] Funmi Barlow M.D. [id number] Basophils/100 WBC (Bld) 0.6 % Normal [facility] Comment on above: Performed By: #### L [id number] #### [facility] [address] [place] [address] Funmi Barlow M.D. [id number] Eosinophils (Bld) [#/Vol] 0.30 10*3/uL Normal 0.00-0.50 [facility] Comment on above: Performed By: #### L [id number] #### [facility] [address] [place] [address] Funmi Barlow M.D. [id number] Eosinophils/100 WBC (Bld) 3.3 % Normal [facility] Comment on above: Performed By: #### L [id number] #### [address] [address] Funmi Barlow M.D. [id number] Erythrocyte distribution width (RBC) [Ratio] 13.8 % Normal 11.6-14.8 [facility] Comment on above: Performed By: #### L [id number] #### [facility] [address] [place] [address] Funmi Barlow M.D. [id number] Hematocrit (Bld) [Volume fraction] 42.8 % Normal 41.0-53.0 [facility] Comment on above: Performed By: #### L [id number] #### [facility] [address] [place] [address] Funmi Barlow M.D. [id number] Hemoglobin (Bld) [Mass/Vol] 14.9 g/dL Normal 13.5-17.5 [facility] Comment on above: Performed By: #### L [id number] #### [facility] [address] [place] [address] Funmi Barlow M.D. [id number] IG ABSOLUTE 0.04 K/mcL Normal 0.00-0.30 [facility] Comment on above: Performed By: #### L [id number] #### [facility] [address] [place] [address] Funmi Barlow M.D. [id number] IG PERCENT 0.40 % Normal [facility] Comment on above: Result Comment: The IG parameter is the percentage of metamyelocytes, myelocytes and promyelocytes. An immature granulocyte count (IG) of 1% or more suggests the possibility of infection, an IG count of 3% is very likely related to an infection. Performed By: #### L [id number] #### [facility] [address] [place] [address] Funmi Barlow M.D. [id number] Lymphocytes (Bld) [#/Vol] 2.05 10*3/uL Normal 0.90-4.00 [facility] Comment on above: Performed By: #### L [id number] #### [facility] [address] [place] [address] Funmi Barlow M.D. [id number] Lymphocytes/100 WBC (Bld) 22.6 % Normal [facility] Comment on above: Performed By: #### L [id number] #### [facility] [address] [place] [address] Funmi Barlow M.D. [id number] MCH (RBC) [Entitic mass] 33.1 pg Normal 26.0-34.0 [facility] Comment on above: Performed By: #### L [id number] #### [facility] [address] [place] [address] Funmi Barlow M.D. [id number] MCV (RBC) [Entitic vol] 95.1 fL Normal 80.0-100.0 [facility] Comment on above: Performed By: #### L [id number] #### [facility] [address] [place] [address] Funmi Barlow M.D. [id number] MEAN CORPUSCULAR HEMOGLOBIN CONC 34.8 g/dL Normal 31.0-37.0 [facility] Comment on above: Performed By: #### L [id number] #### [facility] [address] [place] [address]Jewels Barlow M.D. [id number] Monocytes (Bld) [#/Vol] 0.74 10*3/uL Normal 0.30-0.90 [facility] Comment on above: Performed By: #### L [id number] #### [facility] [address] [place] [address] Funmi Barlow M.D. [id number] Monocytes/100 WBC (Bld) 8.1 % Normal [facility] Comment on above: Performed By: #### L [id number] #### [facility] [address] [place], [place] [address] Funmi Barlow M.D. [id number] NEUTROPHILS ABSOLUTE COUNT 5.90 K/mcL Normal 1.70-7.00 [facility] Comment on above: Performed By: #### L [id number] #### [facility] [address] [place] [address] Funmi Barlow M.D. [id number] Neutrophils/100 WBC (Bld) 65.0 % Normal [facility] Comment on above: Performed By: #### L [id number] #### [facility] LAB [address] [place] [address] 45684Jewels Barlow M.D. [id number] Platelet mean volume (Bld) [Entitic vol] 9.3 fL Low 9.4-12.4 [facility] Comment on above: Performed By: #### L [id number] #### [facility] [address] [place] [address] 570[address] Funmi Barlow M.D. [id number] Platelets (Bld) [#/Vol] 270 10*3/uL Normal 150-400 [facility] Comment on above: Performed By: #### L [id number] #### [facility] [address] [place] [address] 20160 Fumni Barlow M.D. [id number] RBC (Bld) [#/Vol] 4.50 10*6/uL Normal 4.50-5.90 [facility] Comment on above: Performed By: #### L [id number] #### [facility] LAB [address] [place] [address] 14866 Funmi Barlow M.D. [id number] WBC (Bld) [#/Vol] 9.08 10*3/uL Normal 4.50-11.00 [facility] Comment on above: Performed By: #### L [id number] #### [facility] LAB [address] [place] [address] Funmi Barlow M.D. [id number] ED Prov Noteon 04-01-2024 ED Prov Note ED PROVIDER NOTE [facility] EM[facility] NAME: Dayne Meyer AGE: 48 y.o. : 1975 VISIT DATE: 04/01/2024 CSN: [id number] PCP: No primary care provider on file. [...] has some feeling. Does not see a nutrition services associate on a regular basis. Past Medical History: [...] Resource Strain: Low Risk (06/27/2021) Received from [facility] Overall Financial Resource Strain (CARDIA) Difficulty of Paying Living Expenses: Not hard at all Food Insecurity: No Food Insecurity (06/27/2021) Received from [facility] Hunger Vital Sign Worried About Running Out of Food in the Last Year: Never true Ran Out of Food in the Last Year: Never true Transportation Needs: No Transportation Needs (03/29/2020) Received from [facility] PRAPARE - Transportation Lack of Transportation (Medical): No Lack of Transportation (Non-Medical): No Physical Activity: Inactive (03/29/2020) Received from [facility] Exercise Vital Sign Days of Exercise per Week: 0 days Minutes of Exercise per Session: 0 min Stress: Stress Concern Present (03/29/2020) Received from [facility] [place] [employer] - Occupational Stress Questionnaire Feeling of Stress : Very much Social Connections: Moderately Isolated (03/29/2020) Received from [facility] Social Connection and Isolation Panel [NHANES] Frequency of Communication with Friends and Family: Three times a week Frequency of Social Gatherings with Friends and Family: Once a week Attends [employer] Services: More than 4 times per year [...] Hearing normal. Nose: Nose normal. Mouth/Throat: Lips: [place]. Mouth: Mucous membranes are moist. Eyes: Extraocular [...] Normal breath (more content not included)... 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 There are severe degenerative changes of the left hip joint with severe superior joint space narrowing and a ftfg-ul-irfw appearance. There is subchondral cystic change within [...] FriApr 01, 2024 1:31:06 PM EST Normal [facility] Comment on above: Order Comment: Injur [...] diabetes mellitus without complication, unspecified whether senior care insulin use ([facility]) M25.552 Left hip pain M54.50 Low back [...] joints bilaterally at the edge of the wlhon-kx-bctw. IMPRESSION: 1. 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 2. 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 3. At the edge of the xetzj-wa-bcat there are severe degenerative changes again seen to involve the hip joints bilaterally. Workstation ID: [id number] Dictated by: REDD FROST on FriApr 01, 2024 1:32:52 PM EST Transcribed by: REDD FROST on FriApr 01, 2024 1:32:52 PM EST Finalized by: REDD FROST on FriApr 01, 2024 1:32:52 PM EST Normal [facility] Comment on above: Order Comment: Injur y/Trauma or Illness?:Illness/Other low back/left hip pain How long have you had these symptoms (acute/chronic)?:Unknown Reason for exam?:low back/left hip pain History of cancer?:. Surgeries, chemotherapy, or radiation?:. Type of Exam?:Initial Additional signs and symptoms?:low back/left hip pain Bedside Glucoseon 03-29-2024 FINGERSTICK GLU 276 mg/dL High 74-106 [facility] Comment on above: Result Comment: RIP GEMENT OF PATIENT CARE PER NURSING PROTOCOL Performed By: #### L 501.080 ####[facility] [address]. [facility] [address] FINGERSTICK GLU 262 mg/dL High -[address] [place] [address] Comment on above: Result Comment: RIP GEMENT OF PATIENT CARE PER NURSING PROTOCOL Performed By: #### L 501.080 ####[facility] [address] [facility] [address] Discharge Instructionon 03-17 Discharge Instruction Normal [facility] Bedside Glucoseon 03-28-2024 FINGERSTICK GLU 403 mg/dL High 74-106 [facility] Comment on above: Result Comment: RIP GEMENT OF PATIENT CARE PER NURSING PROTOCOL Performed By: #### L 501.080 ####[facility] [address] [facility] [address] FINGERSTICK GLU 198 mg/dL High 74-106 [facility] Comment on above: Result Comment: RIP GEMENT OF PATIENT CARE PER NURSING PROTOCOL Performed By: #### L 501.080 ####[facility] [address] [facility] [address] FINGERSTICK GLU 200 mg/dL High [address] [place] [address] Comment on above: Result Comment: RIP GEMENT OF PATIENT CARE PER NURSING PROTOCOL Performed By: #### L 501.080 ####[facility] [address] [facility] [address] FINGERSTICK GLU 207 mg/dL High [address] [place] [address] Comment on above: Result Comment: RIP GEMENT OF PATIENT CARE PER NURSING PROTOCOL Performed By: #### L 501.080 ####[facility] [address] [facility] [address] Bedside Glucoseon 03-27-2024 FINGERSTICK GLU 201 mg/dL High [address] [place] [address] Comment on above: Result Comment: RIP GEMENT OF PATIENT CARE PER NURSING PROTOCOL Performed By: #### L 501.080 ####[facility] [address] [facility] [address] FINGERSTICK GLU 232 mg/dL High [address] [place] [address] Comment on above: Result Comment: RIP GEMENT OF PATIENT CARE PER NURSING PROTOCOL Performed By: #### L 501.080 ####[facility] [address] [facility] [address] FINGERSTICK GLU 233 mg/dL High [address] [place] [address] Comment on above: Result Comment: RIP GEMENT OF PATIENT CARE PER NURSING PROTOCOL Performed By: #### L 501.080 ####[facility] [address] [facility] [address] FINGERSTICK GLU 197 mg/dL High [address] [place] [address] Comment on above: Result Comment: RIP GEMENT OF PATIENT CARE PER NURSING PROTOCOL Performed By: #### L 501.080 ####[facility] [address] [place], [address] Alcohol, Blood (Medical)-Ser umon 03-26-2024 SERUM ETOH < 3.0 Normal [facility] Comment on above: Result Comment: The serum:whole blood ethanol ratio is approximately 1.14and varies slightly with hematocrit.Medical Alcohol reference interval and critical value innon-tolerant individuals; 50 - 100 Impairment 100 Intoxication 100 - 250 Severe Poisoning 250 - 400 Deep/possible fatal coma Performed By: #### L 500.4050, L501.9100, L505.5000, L100.0100 ####[facility] [address] [place], [address] Bedside Glucoseon 03-26-2024 FINGERSTICK GLU 241 mg/dL High 74-106 [facility] Comment on above: Result Comment: RIP GEMENT OF PATIENT CARE PER NURSING PROTOCOL Performed By: #### L 501.080 ####[facility] [address] [place], [address] FINGERSTICK GLU 172 mg/dL High 74-106 [facility] Comment on above: Result Comment: RIP GEMENT OF PATIENT CARE PER NURSING PROTOCOL Performed By: #### L 501.080 ####[facility] [address] [place], [address] CBC W/Diff, Automatedon 03-17 Absolute Lymph 1.59 X10 3/uL Normal 0.83-4.51 [facility] Comment on above: Performed By: #### L 500.4050, L501.9100, L505.5000, L100.0100 ####[facility] [address] [place], [address] Absolute Neut 4.7 X10 3/uL Normal 2.0-7.7 [facility] Comment on above: Performed By: #### L 500.4050, L501.9100, L505.5000, L100.0100 ####[facility] [address] [place], [address] Basophils/100 WBC (Bld) 0.7 % Normal 0-1 [facility] Comment on above: Performed By: #### L 500.4050, L501.9100, L505.5000, L100.0100 ####[facility] [address] [place], [address] Eosinophils/100 WBC (Bld) 2.6 % Normal 0-5 [facility] Comment on above: Performed By: #### L 500.4050, L501.9100, L505.5000, L100.0100 ####[facility] [address] [place], [address] Erythrocyte distribution width (RBC) [Ratio] 14.2 % Normal 11.6-14.6 [facility] Comment on above: Performed By: #### L 500.4050, L501.9100, L505.5000, L100.0100 ####[facility] [address] [place], [address] Hematocrit (Bld) [Volume fraction] 44.9 % Normal 40-54 [facility] Comment on above: Performed By: #### L 500.4050, L501.9100, L505.5000, L100.0100 ####[facility] [address] [place], [address] Hemoglobin (Bld) [Mass/Vol] 15.7 g/dL Normal 13.0-16.5 [facility] Comment on above: Performed By: #### L 500.4050, L501.9100, L505.5000, L100.0100 ####[facility] [address] [place], [address] IG% 0.700 Normal 0.0-0.9 [facility] Comment on above: Result Comment: IG% - Immature Granulocytes (promyelocytes, myelocytes andmetamyelocytes) > 1% indicates that a LEFT SHIFT is Present. Performed By: #### L 500.4050, L501.9100, L505.5000, L100.0100 ####[facility] [address] [place], [address] Lymphocytes/100 WBC (Bld) 21.5 % Normal 19-41 [facility] Comment on above: Performed By: #### L 500.4050, L501.9100, L505.5000, L100.0100 ####[facility] [address] [place], [address] MCH (RBC) [Entitic mass] 33.1 pg High 27.0-32.0 [facility] Comment on above: Performed By: #### L 500.4050, L501.9100, L505.5000, L100.0100 ####[facility] [address] [place], [address] MCHC (RBC) [Mass/Vol] 35.0 g/dL Normal 32-36 [facility] Comment on above: Performed By: #### L 500.4050, L501.9100, L505.5000, L100.0100 ####[facility] [address] [place], [address] MCV (RBC) [Entitic vol] 94.5 fL High 80-94 [facility] Comment on above: Performed By: #### L 500.4050, L501.9100, L505.5000, L100.0100 ####[facility] [address] [place], [address] Monocytes/100 WBC (Bld) 10.9 % High 0-10 [facility] Comment on above: Performed By: #### L 500.4050, L501.9100, L505.5000, L100.0100 ####[facility] [address] [place], [address] Neutrophils/100 WBC (Bld) 63.6 % Normal 47-70 [facility] Comment on above: Performed By: #### L 500.4050, L501.9100, L505.5000, L100.0100 ####[facility] [address] [place], [address] Nucleated RBC (Bld) [#/Vol] 0 10*3/uL Normal 0-5 [facility] Comment on above: Performed By: #### L 500.4050, L501.9100, L505.5000, L100.0100 ####[facility] [address] [place], [address] Platelet mean volume (Bld) [Entitic vol] 9.1 fL Normal 6.2-12.0 [facility] Comment on above: Performed By: #### L 500.4050, L501.9100, L505.5000, L100.0100 ####[facility] [address] [place], [address] Platelets (Bld) [#/Vol] 222 10*3/uL Normal 150-450 [facility] Comment on above: Performed By: #### L 500.4050, L501.9100, L505.5000, L100.0100 ####[facility] [address] [place], [address] RBC (Bld) [#/Vol] 4.75 10*6/uL Normal 4.6-6.2 [facility] Comment on above: Performed By: #### L 500.4050, L501.9100, L505.5000, L100.0100 ####[facility] [address] [place], [address] RDW SD 49.0 fl High 35.1-43.9 [facility] Comment on above: Performed By: #### L 500.4050, L501.9100, L505.5000, L100.0100 ####[facility] [address] [place], [address] WBC (Bld) [#/Vol] 7.4 10*3/uL Normal 4.4-11.0 [facility] Comment on above: Performed By: #### L 500.4050, L501.9100, L505.5000, L100.0100 ####[facility] [address] [place], [address] Comprehensive Metabolic Prof ilon 03-26-2024 Albumin [Mass/Vol] 3.3 g/dL Normal 3.2-5.0 [facility] Comment on above: Performed By: #### L 500.4050, L501.9100, L505.5000, L100.0100 ####[facility] [address] [place], [address] Albumin/Globulin [Mass ratio] 0.8 {ratio} Low 0.9-2.4 [facility] Comment on above: Performed By: #### L 500.4050, L501.9100, L505.5000, L100.0100 ####[facility] [address] [place], [address] ALK P 119 U/L High 45-117 [facility] Comment on above: Performed By: #### L 500.4050, L501.9100, L505.5000, L100.0100 ####[facility] [address] [place], [address] ALT [Catalytic activity/Vol] 34 U/L Normal 16-61 [facility] Comment on above: Performed By: #### L 500.4050, L501.9100, L505.5000, L100.0100 ####[facility] [address] [place], [address] AST [Catalytic activity/Vol] 16 U/L Normal 15-37 [facility] Comment on above: Performed By: #### L 500.4050, L501.9100, L505.5000, L100.0100 ####[facility] [address] [place], [address] Bilirubin [Mass/Vol] 0.40 mg/dL Normal 0.20-1.00 [facility] Comment on above: Result Comment: For patients on eltrombopag therapy, use of Dimension [place] TBIL is not recommended. Performed By: #### L 500.4050, L501.9100, L505.5000, L100.0100 ####[facility] [address] [place], [address] BUN/CRE 20.0 RATIO Normal 10-20 [facility] Comment on above: Performed By: #### L 500.4050, L501.9100, L505.5000, L100.0100 ####[facility] [address] [place], [address] CA,Total 9.4 mg/dL Normal 8.5-10.1 [facility] Comment on above: Performed By: #### L 500.4050, L501.9100, L505.5000, L100.0100 ####[facility] [address] [place], [address] Chloride [Moles/Vol] 104 mmol/L Normal 98-107 [facility] Comment on above: Performed By: #### L 500.4050, L501.9100, L505.5000, L100.0100 ####[facility] [address] [place], [address] CO2 [Moles/Vol] 25.0 mmol/L Normal 21.0-32.0 [facility] Comment on above: Performed By: #### L 500.4050, L501.9100, L505.5000, L100.0100 ####[facility] [address] [place], [address] Creatinine [Mass/Vol] 0.85 mg/dL Normal 0.70-1.30 [facility] Comment on above: Result Comment: The validity of the calculated GFR GFRAA in patients over70 years has not been determined. Clinical correlation isessential. Performed By: #### L 500.4050, L501.9100, L505.5000, L100.0100 ####[facility] [address] [place], [address] ECRCL 159.55 ml/min Normal [facility] Comment on above: Performed By: #### L 500.4050, L501.9100, L505.5000, L100.0100 ####[facility] [address] [place], [address] EST GFR - AA 123 mL/min Normal >60 [facility] Comment on above: Result Comment: Afri can Citizen [place] GFR Calc Performed By: #### L 500.4050, L501.9100, L505.5000, L100.0100 ####[facility] [address] [place], [address] GAP 4 Low 5-15 [facility] Comment on above: Performed By: #### L 500.4050, L501.9100, L505.5000, L100.0100 ####[facility] [address] [place], [address] GFR/1.73 sq M.predicted among non-blacks MDRD (S/P/Bld) [Vol rate/Area] 102 mL/min/{1.73_m2} Normal >60 [facility] Comment on above: Result Comment: Non- GFR Calc Performed By: #### L 500.4050, L501.9100, L505.5000, L100.0100 ####[facility] [address] [place], [address] Globulin (S) [Mass/Vol] 4.4 g/dL High 2.2-4.2 [facility] Comment on above: Performed By: #### L 500.4050, L501.9100, L505.5000, L100.0100 ####[facility] [address] [place], [address] Glucose [Mass/Vol] 195 mg/dL High 74-106 [facility] Comment on above: Result Comment: Fast ing Glucose result greater than or equal to 126 mg/dLsuggests DIABETES MELLITUS per A.D.A. criteria. Performed By: #### L 500.4050, L501.9100, L505.5000, L100.0100 ####[facility] [address] [place], [address] Potassium [Moles/Vol] 4.2 mmol/L Normal 3.5-5.1 [facility] Comment on above: Performed By: #### L 500.4050, L501.9100, L505.5000, L100.0100 ####[facility] [address] [place], [address] Sodium [Moles/Vol] 134 mmol/L Low 136-145 [facility] Comment on above: Performed By: #### L 500.4050, L501.9100, L505.5000, L100.0100 ####[facility] [address] [place], [address] T PROT 7.7 g/dL Normal 6.4-8.2 [facility] Comment on above: Performed By: #### L 500.4050, L501.9100, L505.5000, L100.0100 ####[facility] [address] [place], [address] Urea nitrogen [Mass/Vol] 17 mg/dL Normal 7-18 [facility] Comment on above: Performed By: #### L 500.4050, L501.9100, L505.5000, L100.0100 ####[facility] [address] [place], [address] Emergency Department Summary on 03-26-2024 Emergency Department Summary Normal [facility] H AND P Exam - Hospitaliston 03-26-2024 H&P Exam - Hospitalist Normal [facility] Magnesiumon 03-26-2024 Magnesium [Mass/Vol] 2.0 mg/dL Normal 1.6-2.6 [facility] Comment on above: Order Comment: Comme nts: May add to ED labsComments: may add to ED labs Performed By: #### L 501.5200, L501.2300 ####[facility] [address] [place], [address] Phosphoruson 03-26-2024 Phosphate [Mass/Vol] 3.9 mg/dL Normal 2.5-4.9 [facility] Comment on above: Order Comment: Comme nts: May add to ED labsComments: may add to ED labs Performed By: #### L 501.5200, L501.2300 ####[facility] [address] [place], [address] Urine Drug Screen (VISTA)on 03-26-2024 AMPHETAMINES Negative Normal <1000 ng/mL [facility] Comment on above: Performed By: #### L 500.4050, L501.9100, L505.5000, L100.0100 ####[facility] [address] [place], [address] BARBITIURATES Negative Normal < 200 ng/mL [facility] Comment on above: Performed By: #### L 500.4050, L501.9100, L505.5000, L100.0100 ####[facility] [address] [place], [address] BENZODIAZIPINE Negative Normal < 200 ng/mL [facility] Comment on above: Performed By: #### L 500.4050, L501.9100, L505.5000, L100.0100 ####[facility] [address] [place], [address] COCAINE Negative Normal < 300 ng/mL [facility] Comment on above: Performed By: #### L 500.4050, L501.9100, L505.5000, L100.0100 ####[facility] [address] [place], [address] ECSTACY Negative Normal < 500 ng/mL [facility] Comment on above: Performed By: #### L 500.4050, L501.9100, L505.5000, L100.0100 ####[facility] [address] [place], [address] METHADONE Negative Normal < 300 ng/mL [facility] Comment on above: Performed By: #### L 500.4050, L501.9100, L505.5000, L100.0100 ####[facility] [address] [place], [address] OPIATES Negative Normal < 300 ng/mL [facility] Comment on above: Performed By: #### L 500.4050, L501.9100, L505.5000, L100.0100 ####[facility] [address] [place], [address] PCP Negative Normal < 25 ng/mL [facility] Comment on above: Performed By: #### L 500.4050, L501.9100, L505.5000, L100.0100 ####[facility] [address] [place], [address] THC Negative Normal < 50 ng/mL [facility] Comment on above: Performed By: #### L 500.4050, L501.9100, L505.5000, L100.0100 ####[facility] [address] [place], [address] VISTA UDS PH 6 Normal [facility] Comment on above: Performed By: #### L 500.4050, L501.9100, L505.5000, L100.0100 ####[facility] [address] [place], [address] Bedside Glucoseon 11-13-2023 FINGERSTICK GLU 125 mg/dL High [address] [place] [address] Comment on above: Result Comment: RIP GEMENT OF PATIENT CARE PER NURSING PROTOCOL Performed By: #### L 501.080 ####[facility] [address] [place], [address] FINGERSTICK GLU 146 mg/dL High [address] [place] [address] Comment on above: Result Comment: RIP GEMENT OF PATIENT CARE PER NURSING PROTOCOL Performed By: #### L 501.080 ####[facility] [address] [place], [address] Discharge Instructionon - Discharge Instruction Normal [facility] Bedside Glucoseon 11-12-2023 FINGERSTICK GLU 191 mg/dL High -106 [facility] Comment on above: Result Comment: RIP GEMENT OF PATIENT CARE PER NURSING PROTOCOL Performed By: #### L 501.080 ####[facility] [address] [place], [address] FINGERSTICK GLU 177 mg/dL High [address] [place] [address] Comment on above: Result Comment: RIP GEMENT OF PATIENT CARE PER NURSING PROTOCOL Performed By: #### L 501.080 ####[facility] [address] [place], [address] FINGERSTICK GLU 155 mg/dL High [address] [place] [address] Comment on above: Result Comment: RIP GEMENT OF PATIENT CARE PER NURSING PROTOCOL Performed By: #### L 501.080 ####[facility] [address] [place], [address] FINGERSTICK GLU 141 mg/dL High -106 [facility] Comment on above: Result Comment: RIP GEMENT OF PATIENT CARE PER NURSING PROTOCOL Performed By: #### L 501.080 ####[facility] [address] [place], [address] 12 Lead EKGon 11-11-2023 12 Lead EKG Normal [facility] Bedside Glucoseon 11-11-2023 FINGERSTICK GLU 213 mg/dL High 74-106 [facility] Comment on above: Result Comment: RIP GEMENT OF PATIENT CARE PER NURSING PROTOCOL Performed By: #### L 501.080 ####[facility] [address] [place], [address] FINGERSTICK GLU 152 mg/dL High [facility]106 [facility] Comment on above: Result Comment: RIP GEMENT OF PATIENT CARE PER NURSING PROTOCOL Performed By: #### L 501.080 ####[facility] [address] [place], [address] FINGERSTICK GLU 179 mg/dL High [facility]106 [facility] Comment on above: Result Comment: RIP GEMENT OF PATIENT CARE PER NURSING PROTOCOL Performed By: #### L 501.080 ####[facility] [address] [place], [address] FINGERSTICK GLU 145 mg/dL High [facility]106 [facility] Comment on above: Result Comment: RIP GEMENT OF PATIENT CARE PER NURSING PROTOCOL Performed By: #### L 501.080 ####[facility] [address] [place], [address] FINGERSTICK GLU 131 mg/dL [facility]106 [facility] Comment on above: Result Comment: RIP GEMENT OF PATIENT CARE PER NURSING PROTOCOL Performed By: #### L 501.080 ####[facility] [address] [place], [address] CBC W/Diff, Automatedon 08-2 Absolute Lymph 1.85 X10 3/uL Normal 0.83-4.51 [facility] Comment on above: Performed By: #### L 501.5200, L501.9520, L500.4050, L300.3900, L501.9985, L100.0100 ####[facility] [address] [place], [address] Absolute Neut 5.1 X10 3/uL Normal 2.0-7.7 [facility] Comment on above: Performed By: #### L 501.5200, L501.9520, L500.4050, L300.3900, L501.9985, L100.0100 ####[facility] [address] [place], [address] Basophils/100 WBC (Bld) 0.6 % Normal 0-1 [facility] Comment on above: Performed By: #### L 501.5200, L501.9520, L500.4050, L300.3900, L501.9985, L100.0100 ####[facility] [address] [place], [address] Eosinophils/100 WBC (Bld) 2.6 % Normal 0-5 [facility] Comment on above: Performed By: #### L 501.5200, L501.9520, L500.4050, L300.3900, L501.9985, L100.0100 ####[facility] [address] [place], [address] Erythrocyte distribution width (RBC) [Ratio] 12.7 % Normal 11.6-14.6 [facility] Comment on above: Performed By: #### L 501.5200, L501.9520, L500.4050, L300.3900, L501.9985, L100.0100 ####[facility] [address] [place], [address] Hematocrit (Bld) [Volume fraction] 40.8 % Normal 40-54 [facility] Comment on above: Performed By: #### L 501.5200, L501.9520, L500.4050, L300.3900, L501.9985, L100.0100 ####[facility] [address] [place], [address] Hemoglobin (Bld) [Mass/Vol] 14.4 g/dL Normal 13.0-16.5 [facility] Comment on above: Performed By: #### L 501.5200, L501.9520, L500.4050, L300.3900, L501.9985, L100.0100 ####[facility] [address] [place], [address] IG% 0.700 Normal 0.0-0.9 [facility] Comment on above: Result Comment: IG% - Immature Granulocytes (promyelocytes, myelocytes andmetamyelocytes) > 1% indicates that a LEFT SHIFT is Present. Performed By: #### L 501.5200, L501.9520, L500.4050, L300.3900, L501.9985, L100.0100 ####[facility] [address] [place], [address] Lymphocytes/100 WBC (Bld) 23.0 % Normal 19-41 [facility] Comment on above: Performed By: #### L 501.5200, L501.9520, L500.4050, L300.3900, L501.9985, L100.0100 ####[facility] [address] [place], [address] MCH (RBC) [Entitic mass] 33.2 pg High 27.0-32.0 [facility] Comment on above: Performed By: #### L 501.5200, L501.9520, L500.4050, L300.3900, L501.9985, L100.0100 ####[facility] [address] [place], [address] MCHC (RBC) [Mass/Vol] 35.3 g/dL Normal 32-36 [facility] Comment on above: Performed By: #### L 501.5200, L501.9520, L500.4050, L300.3900, L501.9985, L100.0100 ####[facility] [address] [place], [address] MCV (RBC) [Entitic vol] 94.0 fL Normal 80-94 [facility] Comment on above: Performed By: #### L 501.5200, L501.9520, L500.4050, L300.3900, L501.9985, L100.0100 ####[facility] [address] [place], [address] Monocytes/100 WBC (Bld) 10.2 % High 0-10 [facility] Comment on above: Performed By: #### L 501.5200, L501.9520, L500.4050, L300.3900, L501.9985, L100.0100 ####[facility] [address] [place], [address] Neutrophils/100 WBC (Bld) 62.9 % Normal 47-70 [facility] Comment on above: Performed By: #### L 501.5200, L501.9520, L500.4050, L300.3900, L501.9985, L100.0100 ####[facility] [address] [place], [address] Nucleated RBC (Bld) [#/Vol] 0 10*3/uL Normal 0-5 [facility] Comment on above: Performed By: #### L 501.5200, L501.9520, L500.4050, L300.3900, L501.9985, L100.0100 ####[facility] [address] [place], [address] Platelet mean volume (Bld) [Entitic vol] 8.5 fL Normal 6.2-12.0 [facility] Comment on above: Performed By: #### L 501.5200, L501.9520, L500.4050, L300.3900, L501.9985, L100.0100 ####[facility] [address] [place], [address] Platelets (Bld) [#/Vol] 267 10*3/uL Normal 150-450 [facility] Comment on above: Performed By: #### L 501.5200, L501.9520, L500.4050, L300.3900, L501.9985, L100.0100 ####[facility] [address] [place], [address] RBC (Bld) [#/Vol] 4.34 10*6/uL Low 4.6-6.2 [facility] Comment on above: Performed By: #### L 501.5200, L501.9520, L500.4050, L300.3900, L501.9985, L100.0100 ####[facility] [address] [place], [address] RDW SD 43.8 fl Normal 35.1-43.9 [facility] Comment on above: Performed By: #### L 501.5200, L501.9520, L500.4050, L300.3900, L501.9985, L100.0100 ####[facility] [address] [place], [address] WBC (Bld) [#/Vol] 8.1 10*3/uL Normal 4.4-11.0 [facility] Comment on above: Performed By: #### L 501.5200, L501.9520, L500.4050, L300.3900, L501.9985, L100.0100 ####[facility] [address] [place], [address] Comprehensive Metabolic Prof ilon 11-11-2023 Albumin [Mass/Vol] 2.6 g/dL Low 3.2-5.0 [facility] Comment on above: Performed By: #### L 501.5200, L501.9520, L500.4050, L300.3900, L501.9985, L100.0100 ####[facility] [address] [place], [address] Albumin/Globulin [Mass ratio] 0.6 {ratio} Low 0.9-2.4 [facility] Comment on above: Performed By: #### L 501.5200, L501.9520, L500.4050, L300.3900, L501.9985, L100.0100 ####[facility] [address] [place], [address] ALK P 110 U/L Normal 45-117 [facility] Comment on above: Performed By: #### L 501.5200, L501.9520, L500.4050, L300.3900, L501.9985, L100.0100 ####[facility] [address] [place], [address] ALT [Catalytic activity/Vol] 23 U/L Normal 16-61 [facility] Comment on above: Performed By: #### L 501.5200, L501.9520, L500.4050, L300.3900, L501.9985, L100.0100 ####[facility] [address] [place], [address] AST [Catalytic activity/Vol] 19 U/L Normal 15-37 [facility] Comment on above: Performed By: #### L 501.5200, L501.9520, L500.4050, L300.3900, L501.9985, L100.0100 ####[facility] [address] [place], [address] Bilirubin [Mass/Vol] 0.50 mg/dL Normal 0.20-1.00 [facility] Comment on above: Result Comment: For patients on eltrombopag therapy, use of Dimension [place] TBIL is not recommended. Performed By: #### L 501.5200, L501.9520, L500.4050, L300.3900, L501.9985, L100.0100 ####[facility] [address] [place], [address] BUN/CRE 19.2 RATIO Normal 10-20 [facility] Comment on above: Performed By: #### L 501.5200, L501.9520, L500.4050, L300.3900, L501.9985, L100.0100 ####[facility] [address] [place], [address] CA,Total 9.2 mg/dL Normal 8.5-10.1 [facility] Comment on above: Performed By: #### L 501.5200, L501.9520, L500.4050, L300.3900, L501.9985, L100.0100 ####[facility] [address] [place], [address] Chloride [Moles/Vol] 101 mmol/L Normal 98-107 [facility] Comment on above: Performed By: #### L 501.5200, L501.9520, L500.4050, L300.3900, L501.9985, L100.0100 ####[facility] [address] [place], [address] CO2 [Moles/Vol] 25.0 mmol/L Normal 21.0-32.0 [facility] Comment on above: Performed By: #### L 501.5200, L501.9520, L500.4050, L300.3900, L501.9985, L100.0100 ####[facility] [address] [place], [address] Creatinine [Mass/Vol] 0.68 mg/dL Low 0.70-1.30 [facility] Comment on above: Result Comment: The validity of the calculated GFR GFRAA in patients over70 years has not been determined. Clinical correlation isessential. Performed By: #### L 501.5200, L501.9520, L500.4050, L300.3900, L501.9985, L100.0100 ####[facility] [address] [place], [address] ECRCL 194.66 ml/min Normal [facility] Comment on above: Performed By: #### L 501.5200, L501.9520, L500.4050, L300.3900, L501.9985, L100.0100 ####[facility] [address] [place], [address] EST GFR - AA 160 mL/min Normal >60 [facility] Comment on above: Result Comment: Afri can [place] GFR Calc Performed By: #### L 501.5200, L501.9520, L500.4050, L300.3900, L501.9985, L100.0100 ####[facility] [address] [place], [address] GAP 9 Normal 5-15 [facility] Comment on above: Performed By: #### L 501.5200, L501.9520, L500.4050, L300.3900, L501.9985, L100.0100 ####[facility] [address] [place], [address] GFR/1.73 sq M.predicted among non-blacks MDRD (S/P/Bld) [Vol rate/Area] 132 mL/min/{1.73_m2} Normal >60 [facility] Comment on above: Result Comment: Non- GFR Calc Performed By: #### L 501.5200, L501.9520, L500.4050, L300.3900, L501.9985, L100.0100 ####[facility] [address] [place], [address] Globulin (S) [Mass/Vol] 4.0 g/dL Normal 2.2-4.2 [facility] Comment on above: Performed By: #### L 501.5200, L501.9520, L500.4050, L300.3900, L501.9985, L100.0100 ####[facility] [address] [place], [address] Glucose [Mass/Vol] 126 mg/dL High 74-106 [facility] Comment on above: Result Comment: Fast ing Glucose result greater than or equal to 126 mg/dLsuggests DIABETES MELLITUS per A.D.A. criteria. Performed By: #### L 501.5200, L501.9520, L500.4050, L300.3900, L501.9985, L100.0100 ####[facility] [address] [place], [address] Potassium [Moles/Vol] 4.3 mmol/L Normal 3.5-5.1 [facility] Comment on above: Performed By: #### L 501.5200, L501.9520, L500.4050, L300.3900, L501.9985, L100.0100 ####[facility] [address] [place], [address] Sodium [Moles/Vol] 135 mmol/L Low 136-145 [facility] Comment on above: Performed By: #### L 501.5200, L501.9520, L500.4050, L300.3900, L501.9985, L100.0100 ####[facility] [address] [place], [address] T PROT 6.6 g/dL Normal 6.4-8.2 [facility] Comment on above: Performed By: #### L 501.5200, L501.9520, L500.4050, L300.3900, L501.9985, L100.0100 ####[facility] [address] [place], [address] Urea nitrogen [Mass/Vol] 13 mg/dL Normal 7-18 [facility] Comment on above: Performed By: #### L 501.5200, L501.9520, L500.4050, L300.3900, L501.9985, L100.0100 ####[facility] [address] [place], [address] Hemoglobin A1con 11-11-2023 HbA1c (Bld) [Mass fraction] 5.9 % High 3.8-5.6 [facility] Comment on above: Result Comment: Norm al < 5.7 % Prediabetic 5.7 - 6.4 % Diabetic >or= 6.5 % Please note range changes. Performed By: #### L 501.5200, L501.9520, L500.4050, L300.3900, L501.9985, L100.0100 ####[facility] [address] [place], [address] Magnesiumon 11-11-2023 Magnesium [Mass/Vol] 1.9 mg/dL Normal 1.6-2.6 [facility] Comment on above: Performed By: #### L 501.5200, L501.9520, L500.4050, L300.3900, L501.9985, L100.0100 ####[facility] [address] [place], [address] Prothrombin Time w/INRon INR Coag (PPP) [Relative time] 1.1 {INR} Normal [facility] Comment on above: Performed By: #### L 501.5200, L501.9520, L500.4050, L300.3900, L501.9985, L100.0100 ####[facility] [address] [place], [address] PT Coag (PPP) [Time] 13.9 s Normal 11.7-14.9 [facility] Comment on above: Performed By: #### L 501.5200, L501.9520, L500.4050, L300.3900, L501.9985, L100.0100 ####[facility] [address] [place], [address] Thyroid Stim Hormone (TSH)on 11-11-2023 TSH 2.510 uIU/mL Normal 0.358-3.740 [facility] Comment on above: Performed By: #### L 501.5200, L501.9520, L500.4050, L300.3900, L501.9985, L100.0100 ####[facility] [address] [place], [address] Alcohol, Blood (Medical)-Ser umon 11-10-2023 SERUM ETOH 183.0 mg/dL Normal [facility] Comment on above: Result Comment: The serum:whole blood ethanol ratio is approximately 1.14and varies slightly with hematocrit.Medical Alcohol reference interval and critical value innon-tolerant individuals; 50 - 100 Impairment 100 Intoxication 100 - 250 Severe Poisoning 250 - 400 Deep/possible fatal coma Performed By: #### L 505.5000, L501.9100, L500.2500, L100.0100 ####[facility] [address] [place], [address] Basic Metabolic Profile (BMP )on 11-10-2023 BUN/CRE 15.8 RATIO Normal 10-20 [facility] Comment on above: Performed By: #### L 505.5000, L501.9100, L500.2500, L100.0100 ####[facility] [address] [place], [address] CA,Total 8.9 mg/dL Normal 8.5-10.1 [facility] Comment on above: Performed By: #### L 505.5000, L501.9100, L500.2500, L100.0100 ####[facility] [address] [place], [address] Chloride [Moles/Vol] 95 mmol/L Low 98-107 [facility] Comment on above: Performed By: #### L 505.5000, L501.9100, L500.2500, L100.0100 ####[facility] [address] [place], [address] CO2 [Moles/Vol] 19.0 mmol/L Low 21.0-32.0 [facility] Comment on above: Performed By: #### L 505.5000, L501.9100, L500.2500, L100.0100 ####[facility] [address] [place], [address] Creatinine [Mass/Vol] 0.82 mg/dL Normal 0.70-1.30 [facility] Comment on above: Result Comment: The validity of the calculated GFR GFRAA in patients over70 years has not been determined. Clinical correlation isessential. Performed By: #### L 505.5000, L501.9100, L500.2500, L100.0100 ####[facility] [address] [place], [address] EST GFR - AA 128 mL/min Normal >60 [facility] Comment on above: Result Comment: Afri can [place] GFR Calc Performed By: #### L 505.5000, L501.9100, L500.2500, L100.0100 ####[facility] [address] [place], [address] GAP 13 Normal 5-15 [facility] Comment on above: Performed By: #### L 505.5000, L501.9100, L500.2500, L100.0100 ####[facility] [address] [place], [address] GFR/1.73 sq M.predicted among non-blacks MDRD (S/P/Bld) [Vol rate/Area] 105 mL/min/{1.73_m2} Normal >60 [facility] Comment on above: Result Comment: Non- GFR Calc Performed By: #### L 505.5000, L501.9100, L500.2500, L100.0100 ####[facility] [address] [place], [address] Glucose [Mass/Vol] 73 mg/dL Low 74-106 [facility] Comment on above: Performed By: #### L 505.5000, L501.9100, L500.2500, L100.0100 ####[facility] [address] [place], [address] Potassium [Moles/Vol] 3.7 mmol/L Normal 3.5-5.1 [facility] Comment on above: Performed By: #### L 505.5000, L501.9100, L500.2500, L100.0100 ####[facility] [address] [place], [address] Sodium [Moles/Vol] 127 mmol/L Low 136-145 [facility] Comment on above: Performed By: #### L 505.5000, L501.9100, L500.2500, L100.0100 ####[facility] [address] [place], [address] Urea nitrogen [Mass/Vol] 13 mg/dL Normal 7-18 [facility] Comment on above: Performed By: #### L 505.5000, L501.9100, L500.2500, L100.0100 ####[facility] [address] [place], [address] Bedside Glucoseon 11-10-2023 FINGERSTICK GLU 94 mg/dL Normal 74-106 [facility] Comment on above: Result Comment: RIP MACIEL OF PATIENT CARE PER NURSING PROTOCOL Performed By: #### L 501.080 ####[facility] [address] [place], [address] CBC W/Diff, Automatedon 10-16 IG% 0.900 Normal 0.0-0.9 [facility] Comment on above: Result Comment: IG% - Immature Granulocytes (promyelocytes, myelocytes andmetamyelocytes) > 1% indicates that a LEFT SHIFT is Present. Performed By: #### L 505.5000, L501.9100, L500.2500, L100.0100 ####[facility] [address] [place], [address] MCHC (RBC) [Mass/Vol] 35.5 g/dL Normal 32-36 [facility] Comment on above: Performed By: #### L 505.5000, L501.9100, L500.2500, L100.0100 ####[facility] [address] [place], [address] Nucleated RBC (Bld) [#/Vol] 0 10*3/uL Normal 0-5 [facility] Comment on above: Performed By: #### L 505.5000, L501.9100, L500.2500, L100.0100 ####[facility] [address] [place], [address] RDW SD 43.8 fl Normal 35.1-43.9 [facility] Comment on above: Performed By: #### L 505.5000, L501.9100, L500.2500, L100.0100 ####[facility] [address] [place], [address] Emergency Department Summary on 11-10-2023 Emergency Department Summary Normal [facility] H AND P Exam - Hospitaliston 11-10-2023 H&P Exam - Hospitalist Normal [facility] Urine Drug Screen (VISTA)on 11-10-2023 AMPHETAMINES Negative Normal <1000 ng/mL [facility] Comment on above: Performed By: #### L 505.5000, L501.9100, L500.2500, L100.0100 ####[facility] [address] [facility] [address] BARBITIURATES Negative Normal < 200 ng/mL [facility] Comment on above: Performed By: #### L 505.5000, L501.9100, L500.2500, L100.0100 ####[facility] [address] [facility] [address] BENZODIAZIPINE Negative Normal < 200 ng/mL [facility] Comment on above: Performed By: #### L 505.5000, L501.9100, L500.2500, L100.0100 ####[facility] [address] [facility] [address] COCAINE Negative Normal < 300 ng/mL [facility] Comment on above: Performed By: #### L 505.5000, L501.9100, L500.2500, L100.0100 ####[facility] [address] [place], [address] ECSTACY Negative Normal < 500 ng/mL [facility] Comment on above: Performed By: #### L 505.5000, L501.9100, L500.2500, L100.0100 ####[facility] [address] [facility] [address] METHADONE Negative Normal < 300 ng/mL [facility] Comment on above: Performed By: #### L 505.5000, L501.9100, L500.2500, L100.0100 ####[facility] [address] [facility] [address] OPIATES Negative Normal < 300 ng/mL [facility] Comment on above: Performed By: #### L 505.5000, L501.9100, L500.2500, L100.0100 ####[facility] [address] [place], [address] PCP Negative Normal < 25 ng/mL [facility] Comment on above: Performed By: #### L 505.5000, L501.9100, L500.2500, L100.0100 ####[facility] [address] [place], [address] THC Negative Normal < 50 ng/mL [facility] Comment on above: Performed By: #### L 505.5000, L501.9100, L500.2500, L100.0100 ####[facility] [address] [place], [address] VISTA UDS PH 4 Normal [facility] Comment on above: Performed By: #### L 505.5000, L501.9100, L500.2500, L100.0100 ####[facility] [address] [place], [address] XR HIP 3-4 VIEWS BILATERALon 07-30-2023 XR [...] 07/30/2023 3:57:16 PM Ordering Provider: YAMILETH Borges [facility] ([place]) .GFRon 07-29-2023 GFR 111 ml/min/1.73sqm [facility] ([place]) Comment on above: Result Comment: GFR Population [...] By: #### G FR, A1C, BMP #### [address] [address] GFR Non- 91 ml/min/1.73sqm [facility] ([place]) Comment on above: Result Comment: GFR Population [...] By: #### G FR, A1C, BMP #### [address] [address] A1Con 07-29-2023 HbA1c (Bld) [Mass fraction] 5.9 % Normal 4.3-6.4 [facility] ([place]) Comment on above: Performed By: #### G FR, A1C, BMP #### [address] [address] BMPon 07-29-2023 BUN/Creatinine Ratio 12 ratio Normal 7-27 [facility] ([place]) Comment on above: Performed By: #### G FR, A1C, BMP #### [address] [address] Calcium [Mass/Vol] 8.9 mg/dL Normal 8.4-10.2 [facility] ([place]) Comment on above: Performed By: #### G FR, A1C, BMP #### [address] [address] Chloride [Moles/Vol] 96 mmol/L Low 98-107 [facility] ([place]) Comment on above: Performed By: #### G FR, A1C, BMP #### [address] [address] CO2 [Moles/Vol] 27 mmol/L Normal 22-29 [facility] ([place]) Comment on above: Performed By: #### G FR, A1C, BMP #### [address] [address] Creatinine [Mass/Vol] 0.89 mg/dL Normal 0.70-1.30 [facility] ([place]) Comment on above: Performed By: #### G FR, A1C, BMP #### [address] [address] Electrolyte Balance 10.0 mEq/L Normal 4.0-15.0 [facility] ([place]) Comment on above: Performed By: #### G FR, A1C, BMP #### [address] [address] Glucose [Mass/Vol] 133 mg/dL High 70-105 [facility] ([place]) Comment on above: Performed By: #### G FR, A1C, BMP #### [address] [address] Potassium [Moles/Vol] 4.7 mmol/L Normal 3.5-5.1 [facility] ([place]) Comment on above: Performed By: #### G A1C [place] BMP #### [address] [place], [place] [address] Sodium [Moles/Vol] 133 mmol/L Low 136-145 [facility] ([place]) Comment on above: Performed By: #### G , A1C, MARIA ALEJANDRA #### [address] [place], [place] [address] Urea nitrogen [Mass/Vol] 11 mg/dL Normal 7-18 [facility] ([place]) Comment on above: Performed By: #### G A1C [place] BMP #### [address] [place], [place] [address] LABORATORYOrdered By: SYSTEM SYSTEM on 07-29-2023 Calcium [...] .GFRon 03-21-2023 GFR Non- 82 ml/min/1.73sqm Normal [facility] ([place]) Comment on above: Result Comment: GFR Population [...] By: #### L IPID, GFR, CMP #### [address] [address] GFR 99 ml/min/1.73sqm Normal [facility] ([place]) Comment on above: Result Comment: GFR Population [...] By: #### L IPID, GFR, CMP #### [address] [address] CMPon 03-21-2023 Albumin Level 3.6 G/dL Normal 3.5-5.0 [facility] ([place]) Comment on above: Performed By: #### L IPID, GFR, CMP #### [address] [address] Albumin/Globulin [Mass ratio] 0.9 {ratio} Low 1.1-2.5 [facility] ([place]) Comment on above: Performed By: #### L IPID, GFR, CMP #### [address] [address] ALP [Catalytic activity/Vol] 96 U/L Normal 40-135 [facility] ([place]) Comment on above: Performed By: #### L IPID, GFR, CMP #### [address] [address] ALT [Catalytic activity/Vol] 44 U/L Normal 16-63 [facility] ([place]) Comment on above: Performed By: #### L IPID, GFR, CMP #### [address] [address] AST [Catalytic activity/Vol] 39 U/L Normal 10-40 [facility] ([place]) Comment on above: Performed By: #### L IPID, GFR, CMP #### [address] [address] Bili Total 1.0 mg/dL Normal 0.2-1.0 [facility] ([place]) Comment on above: Result Comment: Use of this assay is not recommended for patients undergoing treatment with eltrombopag due to the potential for falsely elevated results. Performed By: #### L IPID, GFR, CMP #### [address] [address] BUN/Creatinine Ratio 15 ratio Normal 7-27 [facility] ([place]) Comment on above: Performed By: #### L IPID, GFR, CMP #### [address] [address] Calcium [Mass/Vol] 9.7 mg/dL Normal 8.4-10.2 [facility] ([place]) Comment on above: Performed By: #### L IPID, GFR, CMP #### [address] [address] Chloride [Moles/Vol] 95 mmol/L Low 98-107 [facility] ([place]) Comment on above: Performed By: #### L IPID, GFR, CMP #### [address] [address] CO2 [Moles/Vol] 27 mmol/L Normal 22-29 [facility] ([place]) Comment on above: Performed By: #### L IPID, GFR, CMP #### [address] [address] Creatinine [Mass/Vol] 0.98 mg/dL Normal 0.70-1.30 [facility] ([place]) Comment on above: Performed By: #### L IPID, GFR, CMP #### [address] [address] Electrolyte Balance 13.0 mEq/L Normal 4.0-15.0 [facility] ([place]) Comment on above: Performed By: #### L IPID, GFR, CMP #### [address] [address] Globulin 4.2 G/dL Normal [facility] ([place]) Comment on above: Performed By: #### L IPID, GFR, CMP #### [address] [address] Glucose [Mass/Vol] 227 mg/dL High 70-105 [facility] ([place]) Comment on above: Performed By: #### L IPID, GFR, CMP #### [address] [address] Potassium [Moles/Vol] 5.8 mmol/L High 3.5-5.1 [facility] ([place]) Comment on above: Performed By: #### L IPID, GFR, CMP #### [address] [address] Sodium [Moles/Vol] 135 mmol/L Low 136-145 [facility] ([place]) Comment on above: Performed By: #### L IPID, GFR, CMP #### [address] [address] Total Protein 7.8 G/dL Normal 6.4-8.2 [facility] ([place]) Comment on above: Performed By: #### L IPID, GFR, CMP #### [address] [address] Urea nitrogen [Mass/Vol] 15 mg/dL Normal 7-18 [facility] ([place]) Comment on above: Performed By: #### L IPID, GFR, CMP #### [address] [address] LABORATORYOrdered By: SYSTEM SYSTEM on 03-21-2023 Albumin [...] 03-21-2023 Cholesterol [Mass/Vol] 187 mg/dL Normal 0-200 [facility] ([place]) Comment on above: Result Comment: Chol esterol Reference Interval: Less than 200 Desirable 200-239 Borderline high risk 240 and above High risk Performed By: #### L IPID, GFR, CMP #### [address] [address] Cholesterol in HDL [Mass/Vol] 47 mg/dL Normal 40-60 [facility] ([place]) Comment on above: Performed By: #### L IPID, GFR, CMP #### [address] [address] Cholesterol in LDL [Mass/Vol] 102 mg/dL Normal 0-130 [facility] ([place]) Comment on above: Performed By: #### L IPID, GFR, CMP #### [address] [address] Triglyceride [Mass/Vol] 188 mg/dL High 0-150 [facility] ([place]) Comment on above: Result Comment: Trig lyceride Reference Interval: Less than 150 Normal 150-199 Borderline high risk 200-499 High risk 500 or higher Very high risk Performed By: #### L IPID, GFR, CMP #### [address] [address] MALBRon 03-21-2023 U Creatinine 85.1 mg/dL Normal 39.0-259.0 [facility] ([place]) Comment on above: Performed By: #### M ALBR #### [address] [address] U Microalb 3598 mcg/dL Normal [facility] ([place]) Comment on above: Performed By: #### M ALBR #### [address] [address] U Ratio Alb/Cre 42 mcg/mg High 0-30 [facility] ([place]) Comment on above: Performed By: #### M ALBR #### [address] [place] [address] [place], [place] [address] LABORATORYOrdered By: SYSTEM SYSTEM on 10-11-2022 Basophil, [...] their appointment, please contact the office immediately. Normal [address] 01-29-2022 36 VOICEMAIL IS FULL Normal [facility] 36 01-17-2022 36 I cannot refill thes e meds without a every 6-month exam and lab work. Patient overdue for checkup Normal [facility] 36 I cannot refill this medicine without a renal function exam and ch up at least every 6 months. Needs an appointment. Normal [facility] 36 Rx loaded [place] [address] Medication name: metFORMIN (GLUCOPHAGE) 500 MG tablet [...] prior to picking up the medication: Yes [facility] CNCOon 07-10-2021 CNCO Letter Text [facility] Radha 03-01-2021 CNPN Telephone (GSTNOR) DAYNE MEYER ([id number]) 1975 M Date Time Provider Department 03/01/21 SHARIFA PICKETT During your visit today, we recorded the following information about you: Alia Leyva Pss 03/01/2021 9:56 AM Signed Please enter screening [...] If you do not have a responsible driver guard (family member or friend) with you to take you home, your exam cannot be done with sedation and will be cancelled. Please bring a list of all of your current medications, including any [id number] medications with you. Medications If you take [...] Prep KitDisp (more content not included)... Normal [facility] Chest PA/LATon 05-29-2020 CR Chest PA/LAT [facility]: [id number]iology ACCESSION EXAM DATE/TIME PROCEDURE ORDERING PROVIDER [id number] 05/29/2020 11:10 EDT CR Chest PA and LAT DO SIMMONS EUGENE F. CPT code 94405 Reason For Exam (CR Chest PA and [...] Transcribed Date and Time: 05/29/2020 1:12 Normal [facility] CR Hip w/ Pelvis 2 or 3 View s Lefton 05-29-2020 CR Hip w/ Pelvis 2 or 3 Views Left [facility]: [id number] Diagnostic Radiology ACCESSION EXAM DATE/TIME PROCEDURE ORDERING PROVIDER [id number] 05/29/2020 11:10 EDT CR Hip w/ Pelvis 2 or 3 DO SIMMONS EUGENE F. Views Left n CPT code 06939 Reason For Exam (CR Hip w/ Pelvis [...] ALFRED Transcribed Date and Time: 05/29/2020 1:07 Normal [facility] CR Spine Lumbosacral 4+ View son 05-29-2020 CR Spine Lumbosacral 4+ Views Patient Name: DAYNE MEYER Diagnostic Radiology ACCESSION EXAM DATE/TIME PROCEDURE ORDERING PROVIDER [id number] 05/29/2020 11:10 EDT CR Spine Lumbosacral 4+ DO SIMMONS EUGENE F. Views CPT code 51543 Reason For Exam (CR Spine Lumbosacral 4+ [...] Transcribed Date and Time: 05/29/2020 1:06 Normal [facility] XR CHEST (2 VW)on 05-29-2020 Patient Name: DAYNE MEYER Diagnostic Radiology ACCESSION EXAM DATE/TIME PROCEDURE ORDERING PROVIDER [id number] 05/29/2020 11:10 EDT CR Chest PA & LAT DO SIMMONS EUGENE F. CPT code 50299 Reason For Exam (CR Chest PA & [...] ALFRED Transcribed Date and Time: 05/29/2020 1:12 [facility] Work Phone: Matt, [facility] - 05/29/2020 1:12 PM EDT Patient Name: DAYNE MEYER Diagnostic Radiology ACCESSION EXAM DATE/TIME PROCEDURE ORDERING PROVIDER [id number] 05/29/2020 11:10 EDT CR Chest PA & LAT DO SIMMONS EUGENE F. CPT code 56581 Reason For Exam (CR Chest PA & [...] ALFRED Transcribed Date and Time: 05/29/2020 1:12 [facility] Work Phone: XR HIP LEFT (2-3 VIEWS)on Patient Name: DAYNE MEYER Diagnostic Radiology ACCESSION EXAM DATE/TIME PROCEDURE ORDERING PROVIDER [id number] 05/29/2020 11:10 EDT CR Hip w/ Pelvis 2 or 3 PETRILLA, DO, XAVIER F. Views Left n CPT code 73525 Reason For Exam (CR Hip w/ Pelvis [...] ALFRED Transcribed Date and Time: 05/29/2020 1:07 [employer] Work Phone: [facility], [facility] - 05/29/2020 1:07 PM EDT [facility]: [id number] Diagnostic Radiology ACCESSION EXAM DATE/TIME PROCEDURE ORDERING PROVIDER [id number] 05/29/2020 11:10 EDT CR Hip w/ Pelvis 2 or 3 DO KARLA XAVIER Odom. Views Left n CPT code 11387 Reason For Exam (CR Hip w/ Pelvis [...] ALFRED Transcribed Date and Time: 05/29/2020 1:07 [facility] Work Phone: XR LUMBAR SPINE (MIN 4 VIEWS )on 05-29-2020 Patient Name: DAYNE MEYER Diagnostic Radiology ACCESSION EXAM DATE/TIME PROCEDURE ORDERING PROVIDER [id number] 05/29/2020 11:10 EDT CR Spine Lumbosacral 4+ DO SIMMONS EUGENE F. Views CPT code 97940 Reason For Exam (CR Spine Lumbosacral 4+ [...] ALFRED Transcribed Date and Time: 05/29/2020 1:06 [facility] Work Phone: Matt, [facility] - 05/29/2020 1:06 PM EDT Patient Name: DAYNE MEYER Diagnostic Radiology ACCESSION EXAM DATE/TIME PROCEDURE ORDERING PROVIDER [id number] 05/29/2020 11:10 EDT CR Spine Lumbosacral 4+ DO SIMMONS EUGENE F. Views CPT code 96300 Reason For Exam (CR Spine Lumbosacral 4+ [...] ALFRED Transcribed Date and Time: 05/29/2020 1:06 [facility] Work Phone: Vital Signs Date Time Vital Sign Value Performing Clinician Facility 05-28-2024 09:33-0400 Body height 185.4 cm Marcel Hinojosa MD Work Phone: [facility] 05-28-2024 09:33-0400 Body mass index (BMI) [Ratio] 37.6 kg/m2 Marcel Hinojosa MD Work Phone: [facility] 05-28-2024 09:33-0400 Body weight 129.28 kg Marcel Hinojosa MD Work Phone: [facility] 05-28-2024 09:30-0400 Body temperature 97.5 [degF] Marcel Hinojosa MD Work Phone: [facility] 05-28-2024 09:30-0400 Diastolic blood pressure 106 mm[Hg] Marcel Hinojosa MD Work Phone: [facility] 05-28-2024 09:30-0400 Heart rate 98 /min Marcel Hinojosa MD Work Phone: [facility] 05-28-2024 09:30-0400 Respiratory rate 17 /min Marcel Hinojosa MD Work Phone: [facility] 05-28-2024 09:30-0400 SaO2% (BldA) [Mass fraction] 98 % Marcel Hinojosa MD Work Phone: [facility] 05-28-2024 09:30-0400 Systolic blood pressure 177 mm[Hg] Marcel Hinojosa MD Work Phone: [facility] 05-27-2024 12:20-0400 Body temperature 97.5 [degF] No Physician [facility] 05-27-2024 12:20-0400 Diastolic blood pressure 99 mm[Hg] No Physician [facility] 05-27-2024 12:20-0400 Heart rate 95 /min No Physician [facility] 05-27-2024 12:20-0400 Respiratory rate 18 /min No Physician [facility] 05-27-2024 12:20-0400 SaO2% (BldA) [Mass fraction] 99 % No Physician [facility] 05-27-2024 12:20-0400 Systolic blood pressure 153 mm[Hg] No Physician [facility] 05-27-2024 12:17-0400 Body height 185.4 cm No Physician [facility] 05-27-2024 12:17-0400 Body mass index (BMI) [Ratio] 37.6 kg/m2 No Physician [facility] 05-27-2024 12:17-0400 Body weight 129.28 kg No Physician [facility] 04-26-2024 10:30-0500 Body temperature 98.4 [degF] Brad Ebbing PA-C Work Phone: [facility] 04-26-2024 10:30-0500 Diastolic blood pressure 79 mm[Hg] Brad Ebbing PA-C Work Phone: [facility] 04-26-2024 10:30-0500 Heart rate 73 /min Brad Ebbing PA-C Work Phone: [facility] 04-26-2024 10:30-0500 SaO2% (BldA) [Mass fraction] 96 % Brad Ebbing PA-C Work Phone: [facility] 04-26-2024 10:30-0500 Systolic blood pressure 128 mm[Hg] Brad Ebbing PA-C Work Phone: [facility] 10-11-2022 12:24-0400 Diastolic Blood Pressure Non-Invasive [address] NISHI MIDDLETON MD [facility] 10-11-2022 12:24-0400 Heart rate 89 /min DR NISHI MIDDLETON MD [facility] 10-11-2022 12:24-0400 Respiratory rate 16 /min DR NISHI MIDDLETON MD [facility] 10-11-2022 12:24-0400 Systolic Blood Pressure Non-Invasive [address] NISHI MIDDLETON MD [facility] 10-11-2022 11:49-0400 Diastolic Blood Pressure Non-Invasive [address] NISHI MIDDLETON MD [facility] 10-11-2022 11:49-0400 Heart rate 100 /min DR NISHI MIDDLETON MD [facility] 10-11-2022 11:49-0400 Respiratory rate 20 /min DR NISHI MIDDLETON MD [facility] 10-11-2022 11:49-0400 Systolic Blood Pressure Non-Invasive [address] NISHI MIDDLETON MD [facility] 10-11-2022 11:38-0400 Heart rate 142 /min DR NISHI MIDDLETON MD [facility] 10-11-2022 11:20-0400 Body temperature 98.6 [degF] DR NISHI MIDLDETON MD [facility] 10-11-2022 11:20-0400 Body weight 140.[address] NISHI MIDDLETON MD [facility] 10-11-2022 11:20-0400 Diastolic Blood Pressure Non-Invasive [address] NISHI MIDDLETON MD [facility] 10-11-2022 11:20-0400 Heart rate 146 /min DR NISHI MIDDLETON MD [facility] 10-11-2022 11:20-0400 Respiratory rate 20 /min DR NISHI MIDDLETON MD [facility] 10-11-2022 11:20-0400 Systolic Blood Pressure Non-Invasive [address] NISHI MIDDLETON MD [facility] Encounters Encounter Date Encounter Type Care Provider Facility Start: 09-16-2024 ambulatory Ashley Delgado [facility] Start: 09-15-2024 ambulatory Cody Moss Facility: [facility] Start: 09-15-2024 End: 09-22-2024 Evaluation and management of inpatient Dg Fox Facility:[facility] Start: 09-15-2024 ambulatory Jos Polk Facility:[facility] Start: 09-06-2024 End: 09-06-2024 Emergency department patient visit Brian Felix Facility:[facility] Start: 08-04-2024 ambulatory Jesse carolin Chadwick Facili ty:[facility] Start: 08-04-2024 End: 08-05-2024 Evaluation and management of inpatient Jesse de Chadwick Facility:[facility] Start: 05-28-2024 End: 05-28-2024 Emergency department patient visit Marcel Hinojosa MD Work Phone: [facility] Comment on above: Dental abscess (Prim moe Dx) Start: 05-28-2024 End: 05-28-2024 Evaluation and management of inpatient Marcel Hinojosa MD Work Phone: [facility] Start: 05-27-2024 End: 05-27-2024 Emergency department patient visit NO PCP PHYSICIAN [facility] Comment on above: Pain, dental (Primar y Dx) Start: 05-27-2024 End: 05-27-2024 Evaluation and management of inpatient No Physician [facility] Start: 04-26-2024 End: 04-26-2024 Office outpatient new 30 minutes Brad Heredia PA-C Work Phone: [facility] Comment on above: Open wound of left g reat toe, subsequent encounter (Primary Dx) Start: 04-26-2024 End: 04-26-2024 ambulatory BRAD HEREDIA [facility] Start: 04-01-2024 End: 04-01-2024 Emergency department patient visit RICHARD CURRIE [facility] Start: 03-26-2024 ambulatory YAMILETH MAST [facility] Start: 03-26-2024 End: 03-29-2024 Evaluation and management of inpatient Wandy Pittman Facility:[facility] Start: 11-12-2023 ambulatory YAMILETH MAST PULMONARY FUNCTION TECHNOLOGIST-BENEFITS DIRECTOR Fa cility:B Start: 11-10-2023 End: 11-13-2023 Evaluation and management of inpatient Wandy Pittman Facility:[facility] Start: 11-10-2023 ambulatory Wandy Pittman Facility:[facility] Start: 08-07-2023 ambulatory YAMILETH MAST PULMONARY FUNCTION TECHNOLOGIST-BENEFITS DIRECTOR Fa cility:[facility] Start: 07-29-2023 End: 07-29-2023 ambulatory YAMILETH MAST PULMONARY FUNCTION TECHNOLOGIST-BENEFITS DIRECTOR Facility:[facility] Start: 07-29-2023 End: 07-29-2023 Patient encounter procedure YAMILETH MAST PULMONARY FUNCTION TECHNOLOGIST-BENEFITS DIRECTOR [facility] Start: 03-21-2023 End: 03-25-2023 ambulatory YAMILETH MAST PULMONARY FUNCTION TECHNOLOGIST-BENEFITS DIRECTOR Facility:B Start: 03-21-2023 End: 03-25-2023 Outreach Lab YAMILETH MAST PULMONARY FUNCTION TECHNOLOGIST-BENEFITS DIRECTOR [facility] Start: 01-13-2023 End: 01-13-2023 ambulatory GURWINDER FARRIS MD Facility:[facility] Start: 01-13-2023 End: 01-13-2023 Patient encounter procedure GURWINDER FARRIS MD [facility] Start: 12-09-2022 ambulatory YAMILETH MAST PULMONARY FUNCTION TECHNOLOGIST-BENEFITS DIRECTOR Fa cility:B Start: 10-11-2022 End: 10-11-2022 Emergency department patient visit DR NISHI MIDDLETON MD [facility] Start: 09-24-2022 End: 09-28-2022 Outreach Lab YAMILETH MAST PULMONARY FUNCTION TECHNOLOGIST-BENEFITS DIRECTOR [facility] Start: 08-20-2021 End: 08-20-2021 Subsequent hospital visit by physician Xavier Simmons DO Work Phone: [facility] Comment on above: Radiculopathy, lumba r region; Lumbar radiculopathy, chronic Start: 05-29-2020 End: 05-29-2020 Subsequent hospital visit by physician Xavier Simmons Work Phone: [facility] Comment on above: Smoker; Left [...] Decompression of med beau nerve YAMILETH MAST PULMONARY FUNCTION TECHNOLOGIST-BENEFITS DIRECTOR 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) YAMILETH MAST PULMONARY FUNCTION TECHNOLOGIST-BENEFITS DIRECTOR Comment on above: surgery Plan of Treatment Date Care Activity Detail Author Start: 11-14-2028 Tetanus vaccination Tetanus: Every 10yrs [facility] Start: 04-01-2025 Diabetes: Annual GFR (Glomerular Filtration Rate) Diabetes: Annual GFR (Glomerular Filtration Rate) [employer] Start: 04-01-2025 Hypertension/CHF/CAD Annual BMP Blood Test Hypertension/CHF/CAD Annual BMP Blood Test [facility] Start: 04-01-2025 Urine screening for protein eGFR Diabetes [facility] Start: 05-27-2024 Adolescent depression screening assessment Depression Screening [facility] Start: 05-27-2024 Diabetes: Annual Urine Albumin-Creatinine Ratio (uACR) Diabetes: Annual Urine Albumin-Creatinine Ratio (uACR) [facility] Start: 05-27-2024 Hemoglobin A1c measurement Diabetes: Blood Sugar Control Test (HGBA1C) [facility] Start: 05-27-2024 HIV screening HIV Screening [facility] Start: 05-27-2024 Lipid panel Cholesterol Screening (Lipid Panel) [facility] Start: 05-27-2024 Screening for malignant neoplasm of colon Colorectal Cancer Screening: Colonoscopy [facility] Start: 05-27-2024 Social Influencers of Health Screening Social Influencers of Health Screening [facility] Start: 11-16-2023 COVID-19 Vaccine ( season) COVID-19 Vaccine ( season) [facility] Start: 11-16-2023 Influenza vaccination Influenza Vaccine (#1) [facility] Start: 04-17-2023 DTaP,Tdap,and Td Vaccines (2 - Td or Tdap) DTaP,Tdap,and Td Vaccines (2 - Td or Tdap) [facility] Start: 07-03-2022 COVID-19 Vaccine (1) COVID-19 Vaccine (1) [facility] Comment on above: Postponed from 09/18/1979 (Patient Refus ed) Start: 06-27-2022 Depression Monitoring Depression Monitoring [facility] Start: 02-05-2022 Influenza vaccination Flu vaccine (Season Ended) [facility] Comment on above: Postponed from 11/15/2021 (Patient Refus ed) Start: 12-01-2021 Diabetic foot examination Diabetic foot exam [facility] Start: 09-26-2021 End: 09-26-2021 Patient encounter procedure 09/26/2021 Office Visit Family Medicine Xavier Simmons, DO [address] [place], [place] [id number] [facility] Start: 05-31-2021 Hemoglobin A1c measurement A1C [facility] Start: 05-29-2021 Diabetic microalbuminuria test Diabetic microalbuminuria test [facility] Work Phone: Start: 05-29-2021 Pneumococcal 0-64 years Vaccine (2 - PCV) Pneumococcal 0-64 years Vaccine (2 - PCV) [facility] Start: 05-29-2021 Pneumococcal Vaccine: Ped or At-Risk (2 of 2 - PCV) Pneumococcal Vaccine: Ped or At-Risk (2 of 2 - PCV) [facility] Start: 05-29-2021 Pneumococcal Vaccine: Pediatrics (0 to 5 Years) and At-Risk Patients (6 to 64 Years) (2 of 2 - PCV) Pneumococcal Vaccine: Pediatrics (0 to 5 Years) and At-Risk Patients (6 to 64 Years) (2 of 2 - PCV) [facility] Start: 05-29-2021 Urine screening for protein Diabetic microalbuminuria test [facility] Start: 03-29-2021 Creatinine measurement Creatinine monitoring [facility] Work Phone: Start: 03-29-2021 Potassium monitoring Potassium monitoring [facility] Work Phone: Start: 03-02-2021 Hemoglobin A1c measurement A1C test (Diabetic or Prediabetic) [facility] Start: 08-21-2020 End: 08-21-2020 Office Visit 08/21/2020 Office Visit Family Medicine Xavier Simmons, [address] [address] [facility] Start: 06-27-2020 HbA1c (Bld) [Mass fraction] A1C test (Diabetic or Prediabetic) [facility] Work Phone: Start: 11-16-2019 Influenza vaccination Flu vaccine (#1) [facility] Work Phone: Start: 09-18-2019 Screening for malignant neoplasm of colon [facility] Start: 04-18-2013 DTaP/Tdap/Td vaccine (1 - Tdap) DTaP/Tdap/Td vaccine (1 - Tdap) [facility] Start: 1993 DTaP/Tdap/Td vaccine (1 - Tdap) DTaP/Tdap/Td vaccine (1 - Tdap) [facility] Work Phone: Start: 1993 Hepatitis A Vaccines (1 of 2 - Risk 2-dose series) Hepatitis A Vaccines (1 of 2 - Risk 2-dose series) [facility] Start: 1993 Hepatitis B vaccine (1 of 3 - Risk 3-dose series) Hepatitis B vaccine (1 of 3 - Risk 3-dose series) [facility] Start: 1993 Hepatitis B Vaccines (1 of 3 - 19+ 3-dose series) Hepatitis B Vaccines (1 of 3 - 19+ 3-dose series) [facility] Start: 1992 Diabetic retinal exam Diabetic retinal exam [facility] Start: 1992 Hepatitis C screening Hepatitis C Screening [facility] Start: 1990 COVID-19 Vaccine (1) COVID-19 Vaccine (1) [facility] Work Phone: Start: 1989 HIV screening [facility] Start: 1986 Depression screening using PHQ-9 (Patient Health Questionnaire 9) score Depression Screening/Follow-Up (PHQ-2/9) [facility] Start: 1984 Diabetes: Annual Retina Eye Exam Diabetes: Annual Retina Eye Exam [facility] Start: 1984 Diabetic foot examination [facility] Start: 1984 Diabetic retinal exam Diabetic retinal exam [facility] Work Phone: Start: 1984 Glaucoma screening Diabetic Eye Exam [facility] Start: 1984 Lipid panel [facility] Start: 1984 Urine screening for protein Urine (micro)albumin/creatinine ratio - Diabetes [facility] Start: 1977 History and physical examination, annual for health maintenance Wellness Visit [facility] Start: 1974 Hepatitis C screening Hepatitis C screen [facility] Work Phone: Start: 1974 Prostate specific antigen measurement PSA Level [facility] Start: 1974 Screening for malignant neoplasm of colon [facility] End: 05-29-2020 XR HIP 2-3 VW W PELVIS LEFT XR HIP 2-3 VW W PELVIS LEFT Imaging Routine Left groin pain 1 Occurrences starting 05/29/2020 until 05/29/2020 [facility] Work Phone: Comment on above: 1 Occurrences starting 05/29/2020 until 05/29/2020 Immunizations Immunization Date Immunization Notes Care Provider Divina salvador 05-29-2020 pneumococcal polysaccharide vaccine, 23 valent Xavier Simmons [facility] Work Phone: Comment on above: Result Comment: 2022: VIS DATE: 01/13/2019 11-14-2018 tetanus toxoid, redu joey diphtheria toxoid, and acellular pertussis vaccine, adsorbed YAMILETH MAST PULMONARY FUNCTION TECHNOLOGIST-BENEFITS DIRECTOR [facility] Payers Date Payer Category Payer Medicaid (Managed Care) 1.2. [id number] 5 2023 Self-pay 2021 Private Health Insurance [id number] 2020 Private Health Insurance [id number] 1974 Unknown [id number] 2.16.8 40.1.928929.3.579.2.627 1974 Unknown [id number] 2.16.8 40.1.236248.3.579.2.627 1974 Unknown [id number] 2.16.8 40.1.460372.3.579.2.627 1974 Unknown [id number] 2.16.8 40.1.236656.3.579.2.627 1974 Unknown [id number] 2.16.8 40.1.837171.3.579.2.627 1974 Unknown [id number] 2.16.8 40.1.813397.3.579.2.627 1974 Unknown [id number] 2.16. 840.1.652793.3.579.2.902 1974 Unknown [id number] 2.16. 840.1.656742.3.579.2.900 1974 Unknown [id number] 2.16. 840.1.153446.3.579.2.1143 1974 Unknown [id number] 2.16. 840.1.545705.3.579.2.1143 Unknown [id number] 2.16.8 40.1.615347.3.579.2.462 Unknown [id number] 2.16.8 40.1.132764.3.579.2.462 Unknown [id number] 2.16.8 40.1.024704.3.579.2.462 Unknown [id number] 2.16.8 40.1.064955.3.579.2.462 Unknown [id number] 2.16.8 40.1.680809.3.579.2.462 Unknown [id number] 2.16.8 40.1.149991.3.579.2.462 Unknown [id number] 2.16.8 40.1.623080.3.579.2.462 Unknown [id number] 2.16.8 40.1.759963.3.579.2.462 Unknown [id number] 2.16.8 40.1.108172.3.579.2.462 Unknown [id number] 2.16.8 40.1.883155.3.579.2.462 Unknown [id number] 2.16.8 40.1.560175.3.579.2.462 Unknown [id number] 2.16.8 40.1.414048.3.579.2.462 Unknown [id number] 2.16.8 40.1.206600.3.579.2.462 Unknown [id number] 2.16.8 40.1.056373.3.579.2.462 Unknown [id number] 2.16.8 40.1.839991.3.579.2.462 Unknown [id number] 2.16.8 40.1.622619.3.579.2.462 Unknown [id number] 2.16.8 40.1.783462.3.579.2.462 Unknown [id number] 2.16.8 40.1.671923.3.579.2.462 Unknown [id number] 2.16.8 40.1.336750.3.579.2.462 Unknown [id number] 2.16.8 40.1.550307.3.579.2.462 Unknown [id number] 2.16.8 40.1.503723.3.579.2.462 Unknown [id number] 2.16.8 40.1.971450.3.579.2.462 Unknown [id number] 2.16.8 40.1.524246.3.579.2.462 Unknown [id number] 2.16.8 40.1.038818.3.579.2.462 Unknown [id number] 2.16.8 40.1.520932.3.579.2.462 Unknown [id number] 2.16.8 40.1.835095.3.579.2.462 Social History Date Type Detail Facility Start: 05-29-2020 End: 05-27-2024 Tobacco smoking status MNIS Current every day smoker [facility] Phone: Start: 03-26-1989 History of tobacco use Cigarette Smo [facility] Work Phone: Start: 05-29-2020 End: 04-26-2024 Cigarettes smoked current (pack per day) - Reported [employer] Phone: Start: 05-29-2020 End: 05-27-2024 Tobacco use and exposure Never used [employer] Phone: Start: 05-29-2020 End: 06-27-2021 Alcohol intake Current drinker of alcohol (finding) [employer] Phone: Start: 03-29-2020 End: 06-27-2021 History SDOH Alcohol Frequency 5 [employer] Work Phone: Start: 03-29-2020 History SDOH Social Connections Phone 4 [employer] Phone: Start: 03-29-2020 History SDOH Social Connections Get Together 2 [employer] Phone: Start: 03-29-2020 History SDOH Social Connections Jain 3 [employer] Work Phone: Start: 03-29-2020 End: 06-27-2021 History SDOH Social Connections Meetings 1 [employer] Work Phone: Start: 03-29-2020 History SDOH Physica l Activity DPW 0 [employer] Work Phone: Start: 1975 Sex Assigned At Not on file S MA Work Phone: Start: 11-16-2018 End: 07-29-2023 Tobacco smoking status Heavy tobacco smoker (finding) [facility] Sex Assigned At Sex [facility] Start: 04-26-2024 End: 05-28-2024 Alcoholic beverage intake Ex-drinker (finding) [facility] Start: 04-26-2024 Tobacco use panel [facility] Start: 05-27-2024 Sex Male (finding) [facility] Functional Status Date Assessment Result Facility 10-11-2022 Functional Status Standard Safet y ID band on, Call device within reach, Bed in low position, Wheels locked, Upper/Half-Length side-rails up, Bedside Cart Locked, Safety level maintained [facility] Mental Status Date Assessment Result Facility 10-11-2022 Mental Status Orientation Oriented x 4 [facility] Clinical Notes 10-11-2022 to 09-22-2024 Sanjay Shah LPN - 05/28/2024 9:50 AM Candace Hinojosa MD - 05/28/2024 9:27 AM EDTDischarge InstructionsSanjay Shah LPN - 05/27/2024 1:30 PM Brad Pizano PA-C - 04/26/2024 11:36 AM EST Note Date & Type Note Facility 09-22-[address] [facility] 09-15-[address] [facility] 08-06-[address] [facility] 05-28-2024 History of Presen t illness Narrative STEPH BROWN reviewed and discussed plan of care with VICKY GARZA. Sanjay Shah LPN 05/28/24 0950 Images from the original note were not [...] Past Medical History: Diagnosis Date Diabetes mellitus ([facility]) Hypertension History reviewed. No pertinent surgical history. [...] (two) times a day for 10 days. mymwtuueexbmjlx-bctngzte-xioqbf zjd-tlsqwufvhac-dokrxlpny (MAGIC MOUTHWASH) [id number] mg/30 mL liquid suspension Take 10 mL [...] of dentistry follow-up. He is not from [place] and plans felt his PCP was considering moving here so PCP information was provided ED Course as of 05/28/24 1036 FriMay 28, 2024 0950 Reviewed external record went to [facility] 04/26/2024 for a wound check [AH] ED Course User Index [AH] Marcel Hinojosa MD Clinical Impressions as of 05/28/24 1036 Dental abscess Impression Dental abscess Right-sided preorbital cellulitis Marcel Hinojosa MD 05/28/24 1038 documented in this encounter [facility] 05-27-2024 Hospital Discharg e instructions Rosi Mantilla NP - 05/27/2024 1:59 PM EDT Thank you for your visit. I have provided prescriptions for antibiotics, mouthwash, and Magic mouthwash. Continue to use OTC Tylenol as directed. I encourage you to go to [facility] as soon as possible for follow-up. They take walk-ins until 3 PM Friday through Friday. Return to the ER for any new or worsening symptoms. documented in this encounter [facility] 05-27-2024 History of Presen t illness Narrative STEPH BROWN reviewed and discussed plan of care with VICKY DE LA CRUZ. Sanjay Shah LPN 05/27/24 1330 documented in this encounter [facility] 04-26-2024 Note Patient Name: James Meyer Date of Service: 04/26/2024 MR #: [id number] : 1975 Assessment & Plan: Open wound of left great toe -Improving -Continue daily dry dressing changes with warm soapy soaks -Completed antibiotics. No further need for antibiotics at this time -Follow up with PCP (Yamileth Cid CNP [place] [address]) in 1-2 weeks Reason for Visit: Follow up for wound check History of Present Illness: Dayne Meyer is a 48 y.o. male referred from [facility] ED on 04/01/24 for wound check. Patient stubbed his toe on a door and a blood blister formed. It became an open wound which brought him to the ED. He was started on antibiotics. Since his ED visit, patient has been taking care on his left great toe. He has been living in a facility in the [facility]. The staff has been changing his dressing [...] Resource Strain: Low Risk (06/27/2021) Received from [facility] Overall Financial Resource Strain (CARDIA) Difficulty of Paying Living Expenses: Not hard at all Food Insecurity: No Food Insecurity (06/27/2021) Received from [facility] Hunger Vital Sign Worried About Running Out of Food in the Last Year: Never true Ran Out of Food in the Last Year: Never true Transportation Needs: No Transportation Needs (03/29/2020) Received from [facility] PRAPARE - Transportation Lack of Transportation (Medical): No Lack of Transportation (Non-Medical): No Physical Activity: Inactive (03/29/2020) Received from [facility] Exercise Vital Sign Days of Exercise per Week: 0 days Minutes of Exercise per Session: 0 min Stress: Stress Concern Present (03/29/2020) Received from [facility] [place] [employer] Occupational Health - Occupational Stress Questionnaire Feeling of Stress : Very much Social Connections: Moderately Isolated (03/29/2020) Received from [facility] Social Connection and Isolation Panel [NHANES] Frequency of Communication with Friends and Family: Three times a week Frequency of Social Gatherings with Friends and Family: Once a week Attends Lutheran Services: More than 4 times per year [...] 96% Physical Exam (more content not included)... [facility] 04-26-2024 History of Presen t illness Narrative Images from the original note were not included. Patient Name: Dayne Meyer Date of Service: 04/26/2024 MR #: [id number] : 1975 Assessment & Plan: Open wound of left great toe -Improving -Continue daily dry dressing changes with warm soapy soaks -Completed antibiotics. No further need for antibiotics at this time -Follow up with PCP (Yamileth Cid CNP [facility] [address] [place] [phone]) in 1-2 weeks Reason for Visit: Follow up for wound check History of Present Illness: Dayne Meyer is a 48 y.o. male referred from [facility] ED on 04/01/24 for wound check. Patient stubbed his toe on a door and a blood blister formed. It became an open wound which brought him to the ED. He was started on antibiotics. Since his ED visit, patient has been taking care on his left great toe. He has been living in a facility in the [facility]. The staff has been changing his dressing [...] Resource Strain: Low Risk (06/27/2021) Received from [facility] Overall Financial Resource Strain (CARDIA) Difficulty of Paying Living Expenses: Not hard at all Food Insecurity: No Food Insecurity (06/27/2021) Received from [facility] Hunger Vital Sign Worried About Running Out of Food in the Last Year: Never true Ran Out of Food in the Last Year: Never true Transportation Needs: No Transportation Needs (03/29/2020) Received from [facility] PRAPARE - Transportation Lack of Transportation (Medical): No Lack of Transportation (Non-Medical): No Physical Activity: Inactive (03/29/2020) Received from [facility] Exercise Vital Sign Days of Exercise per Week: 0 days Minutes of Exercise per Session: 0 min Stress: Stress Concern Present (03/29/2020) Received from [facility] [employer] [place] of Occupational Health - Occupational Stress Questionnaire Feeling of Stress : Very much Social Connections: Moderately Isolated (03/29/2020) Received from [facility] Social Connection and Isolation Panel [NHANES] Frequency of Communication with Friends and Family: Three times a week Frequency of Social Gatherings with Friends and Family: Once a week Attends Lutheran Services: More than 4 times per year [...] dry and healing documented in this encounter [facility] 04-26-2024 Evaluation + Plan note Associated Problem(s): Open wound of left great toe -Improving -Continue daily dry dressing changes with warm soapy soaks -Completed antibiotics. No further need for antibiotics at this time -Follow up with PCP (Yamileth Cid CNP [facility] [address] [place] [address]) in 1-2 weeks [facility] 04-26-2024 Miscellaneous Notes Associated Problem(s): Open wound of left great toe -Improving -Continue daily dry dressing changes with warm soapy soaks -Completed antibiotics. No further need for antibiotics at this time -Follow up with PCP (Yamileth Cid, SHELDON [facility] [address] [place] [address]) in 1-2 weeks documented in this encounter [facility] 04-26-2024 Instructions Brad Heredia PA-C - 04/26/2024 11:29 AM EST Wound Halfway Instructions: -Keep wound clean, dry, and covered [...] have chest pain. documented in this encounter [facility] 03-29-[address] [facility] 11-13-[address] [facility] 10-11-2022 Hospital Discharg e instructions Patient Education 10/11/2022 12:13:18 Atrial Flutter [...] seeing Extreme drowsiness, confusion, dizziness, or fainting [id number] [employer] [place] [address]. All rights reserved. This information is not intended as a substitute for professional medical care. Always follow your healthcare professional's instructions. Follow Up Care 10/11/2022 11:21:12 With:[facility] Address: [address] [facility] [place] [phone] When:2-4 days With:MARCIA PANDEY [facility] Address: [facility] [place] [address] [address] [facility] [place] [phone] When:2-4 days [facility] 10-11-2022 Emergency department Discharge summary Discharge Instructions Thank you for allowing [facility] to assist you with your healthcare needs. [...] YAMILETH CID When Within 2-4 days Where: [address] [facility] [place] [address]- [phone] Follow Up with MARCIA PANDEY When Within 2-4 days Where: [address] [facility] [address] [facility] [place] [address] [phone] Allergies NKA Medications Please ask your primary [...] seeing Extreme drowsiness, confusion, dizziness, or fainting [phone] [employer] [place] [address]. All rights reserved. This information is not intended as a substitute for professional medical care. Always follow your healthcare professional's instructions. Additional Information VACCINATE! IT SAVES LIVES! Members of the community who have not yet received the COVID-19 vaccine and would like to receive it can visit one of [facility] vaccine clinics. There are many vaccine clinic locations within the [facility]. For locations and available times, please visit www.[email or web address].[place] .gov/. It is important to note that some COVID mobile vaccine clinics are held outdoors and may be canceled in rainy or stormy conditions. To learn more about pediatric vaccinations (ages 5-11), we invite you to visit the [facility] webpage. https://www.[email or web address].org/ pages/0756-Hinea-Ubrzipmoxgk-Fr dvxmyuvn-[email or web address]-Oruuwjbjs.html To learn more about the COVID-19 vaccine, we invite you to visit the CDC website for a list of frequently asked questions. https://www.cdc.gov/coronavirus /2019-ncov/vaccines/faq.html [facility] Patient Portal Access Instructions: Stay connected with your healthcare team and access your personal medical information anytime with the [employer] Patient Portal. If you would like a full copy of your medical records please contact the [facility] Medical Records Department Friday through Friday between 8a.m. and 4:30p.m. Please follow the directions below to access the portal: 1.Access the email account you provided upon registration to the [facility].2.Look for an invitation email from [facility].3.Open the email and access the invitation link: Accept Invitation to [facility]4.Fill in the required boyle to create your account. Sign into [email or web address] with your username and password that you [...] you will allow to register on the [employer] [employer] Patient Portal for access to your information. You can also access the [employer] Patient Portal on the [employer]. Simply click on Health Records under Health Data and then click on the [facility] logo. HOW TO SAFELY DISPOSE OF PRESCRIPTION [...] Call your local pharmacy or go to http://bit.ly/3Q5Eg1i to find one close to you.3.Make use of household items: Use cat litter or old coffee grounds to dispose medications if other options are not available. Mix your drugs with these household products, seal them in an airtight container and throw it into the garbage. Call [facility]: [phone] to be sure your drugs can be [...] been reviewed and explained to me and IMITCH ANTHONY Q understand my current condition and have read and understand these discharge instructions. I have received a written copy of the plan/instructions. If I have questions, I am aware that I should contact my doctor. 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: Date/Time: Relationship to Patient: Witness Name/Signature: Date/Time: [facility] 10-11-2022 Note ORIGINAL EXAMINATION: ONE [...] 10/11/2022 12:03:50 PM Ordering Provider: NISHI MIDDLETON [facility] 10-11-2022 Note ATRIAL FLUTTER TACHY CARDIA Consider right atrial enlargement Inferior infarct, old Borderline ST elevation, anterolateral leads Baseline wander in lead(s) V2,V4,V5 Electronic Signature: NISHI MIDDLETON MD 10/11/2022 11:33:52 [facility] Evaluation + Plan note Future Appointments Appointment Date:10/16/2022 03:30:00 PM Scheduled Provider:TODD ALBERTS Location:[facility] Appointment Type:PC OV Follow Up Future Scheduled TestsBasic Metabolic Panel 09/16/22A1C Hemoglobin 7//Lipid Profile 09/16/22 [facility] Evaluation + Plan note Future Appointments Appointment Date:01/28/2023 11:30:00 AM Scheduled Provider:YAMILETH CID Location:[facility] Appointment Type:PC OV Future Scheduled TestsBasic Metabolic Panel 09/16/Prostate Specific Antigen 8/29/23A1C Hemoglobin 7/3/Lipid Profile 09/16/22 [facility] Evaluation + Plan note Future Appointments Appointment Date:03/28/2023 01:45:00 PM Scheduled Provider: Location:[facility] Appointment Type:PC Nurse BP Check Future Scheduled TestsBasic Metabolic Panel 7/3/23Prostate Specific Antigen 11/12/22A1C Hemoglobin 7Lipid Profile 09/16/22 [facility] Evaluation + Plan note Future Appointments Appointment Date:08/05/2023 11:00:00 AM Scheduled Provider:YAMILETH CID Location:[facility] Appointment Type:PC OV Future Scheduled TestsBasic Metabolic Panel 09/16/22Prostate Specific Antigen 11/12/22A1C Hemoglobin 09/16/22Lipid Profile 09/16/22Albumin/Creatinine Ratio, Random Urine 07/29/23 [facility] Evaluation note Diagnosis Radiculopathy, lumbar region Thoracic or lumbosacral neuritis or radiculitis, unspecified Lumbar radiculopathy, chronic Thoracic or lumbosacral neuritis or radiculitis, unspecified [facility] Phone: Evaluation note* Diagnosis Open wound of left great toe, subsequent encounter- Primary [facility] Diagnosis Pain, dental- Primary [facility]* Diagnosis Dental abscess- Primary Periapical abscess without sinus [facility] Narrative No data available for this section [facility] Hospital Discharge instructions No data available for this section [facility] Hospital Discharge instructions* Attachments The following attachments cannot be sent through Care Everywhere. * Tooth: Abscessed (Bengali) [facility] No data available for this section [facility] Assessments Diagnosis Smoker Tobacco use [...] section and content) DATE CREATED AUTHOR 06/03/2020 [facility] DATE CREATED AUTHOR AUTHOR'S ORGANIZ ATION 07/13/2021 [facility] DATE CREATED AUTHOR AUTHOR'S ORGANIZ ATION 03/08/2022 [facility] [employer] [facility] [employer] [facility] DATE CREATED AUTHOR AUTHOR'S ORGANIZ ATION 11/14/2023 [facility] DATE CREATED AUTHOR AUTHOR'S ORGANIZ ATION 04/27/2024 [facility] DATE CREATED AUTHOR AUTHOR'S ORGANIZ ATION 04/27/2024 [facility] DATE CREATED AUTHOR AUTHOR'S ORGANIZ ATION 05/30/2024 [facility] DATE CREATED AUTHOR AUTHOR'S ORGANIZ ATION 10/13/[address] [facility] Care Teams (unrecognized sec tion and content) Body Cleaner Relationship Specialty Start Date End Date Xavier Simmons, DO [address] [place] [phone] PCP - General Family Medicine 03/29/20 Body Cleaner Relationship Specialty Start Date End Date Yamileth Cid CNP Nurse Practitioner Primary Care 08/12/23 Body Cleaner Relationship Specialty Start Date End Date Physician, No Pcp PCP - General 05/27/24 Body Cleaner Relationship Specialty Start Date End Date Physician, [...] Last Filled Start Date End Date diphenhydramine-al ledrpk-twtrgphsc-x imethicone-lidocai ne (MAGIC MOUTHWASH) [id number] mg/30 mL liquid suspension Take 10 mL [...] day for 10 days. 20 tablet 05/28/2024 5 sulfamethoxazole-t rimethoprim (BACTRIM DS,SEPTRA DS) 800-160 mg [...] 1058 (Given - Provid er: Sanjay Alyssa, PAYROLL ADMINISTRATIVE ASSISTANT) HYDROcodone-acetaminophen (NORCO) 5-325 mg per tablet 1 tablet (COMPLETED) 1 tablet, oral, Once, On Fri05/28/24 at 1033, For 1 dose 1057 (Given - Provid er: Sanjay Alyssa, PAYROLL ADMINISTRATIVE ASSISTANT) sulfamethoxazole-trimethoprim (BACTRIM DS,SEPTRA DS) 800-160 mg per tablet 1 tablet (COMPLETED) 1 tablet, oral, Once, On Fri05/28/24 at 1033, For 1 dose, Indication: Head/Ear/Eye/Nose/Throat Coverage 1058 (Given - Provid er: Sanjay Alyssa, PAYROLL ADMINISTRATIVE ASSISTANT) FOR RECORDS PERTAINING TO PATIENTS WHO ARE [...] BE BASED ON THE PRIMARY CLINICAL RECORDS. [employer] provides no warranty or guarantee of the accuracy or completeness of information in this document.
== END | disposition home or self-care (01) ==
LOC: MRI 15:34
PROVIDERS: Referring Provider Anesthesiology; Visit Provider Anesthesiology
DX: M54.17 Radiculopathy, lumbosacral region (principal); G62.9 Polyneuropathy, unspecified; R26.89 Other abnormalities of gait and mobility
CPT/HCPCS: 72141; 72146; 72148